=== PATIENT | male | born 1960 | race Caucasian/White ===

== ENCOUNTER 2018-08-09 09:13 | Inpatient (IN) ==
[2018-08-09] MEDS ORDERED: Labetalol HCl Inj 100 MG/20 ML Vial IV.PUSH ONE (09:24)
--- NOTE | 2018-08-09 09:32 | ED ---
HPI General Chief Complaint: Altered Mental Status Stated Complaint: AMS Time Seen by Provider: 08/09/18 09:15 History of Present Illness HPI narrative: Patient 58-year-old male with history of high blood pressure, she sold his house and lived in his friend's house. She is to go to the garage to smoke. He was seen at [facility] last night close to midnight. He was found at 830 in the garage on the floor unresponsive. He was awake alert not oriented, nonverbal. Patient was moving his arms looks around no legs movement noted at this time. No obvious trauma sign noted. Blood pressure initially 226 /139 heart rate is 90. Patient is not a candidate for TPA, he missed treatment window. He was seen before midnight healthy. I called a stroke alert, spoke with his neurologist Dr. De La Cruz. Related Data Home Medications Medication Instructions Recorded Confirmed Unable to Obtain Home Meds 08/09/18 08/09/18 Allergies Allergy/AdvReac Type Severity Reaction Status Date / Time No Known Allergies Allergy Verified 08/09/18 09:20 Review of Systems ROS: all other systems reviewed are negative Neurologic Comments: Patient is awake alert not oriented, looks around, nonverbal. Moves his arms, not following commands. [facility] Medical History Medical History ETOH abuse (Acute) HTN (hypertension) (Acute) Social History Social History Substance History: Unable to Obtain Smoking Status: Cognitive impairment How Often Do You Have a Drink Containing Alcohol: Unable to Obtain Recent Travel in [facility] within the Last 8 Weeks: No Recent Out of Country Travel within the Last 8 Weeks: No Exam Narrative Exam Narrative: GENERAL: 58-year-old male with possible stroke symptoms. SKIN: Focused skin assessment warm/dry. HEAD: Atraumatic. Normocephalic. EYES: Pupils equal and round. No scleral icterus. No injection or drainage. ENT: No nasal bleeding or discharge. Mucous membranes pink and moist. NECK: Trachea midline. No JVD. CARDIOVASCULAR: Regular rate and rhythm. No murmur appreciated. RESPIRATORY: No accessory muscle use. Clear to auscultation. Breath sounds equal bilaterally. GASTROINTESTINAL: Abdomen soft, non-tender, nondistended. Hepatic and splenic margins not palpable. MUSCULOSKELETAL: No obvious deformities. No clubbing. No cyanosis. No edema. NEUROLOGICAL: Patient is awake alert not oriented, looks around, nonverbal. Moves his arms, not following commands. PSYCHIATRIC: Appropriate mood and affect; insight and judgment normal. Course Initial Documented Vital Signs Temperature 98.2 F 08/09/18 09:25 Pulse Rate 102 H 08/09/18 09:25 Respiratory Rate 24 08/09/18 09:25 Blood Pressure 226/139 H 08/09/18 09:25 Pulse Oximetry 99 08/09/18 09:25 Last Documented Vital Signs Temperature 98.2 F 08/09/18 09:25 Pulse Rate 102 H 08/09/18 09:25 Respiratory Rate 24 08/09/18 09:25 Blood Pressure 186/86 H 08/09/18 09:29 Pulse Oximetry 100 08/09/18 10:30 Critical Care Time Critical Care Time: Yes Total Critical Care Time: 50 Attestation: Aggregate critical care time was 50 minutes. Time to perform other separately billable procedures was not included in the critical care time. My time did not include minutes spent treating any other patients simultaneously or on activities that did not directly contribute to the patient's treatment. The services I provided to this patient were to treat and/or prevent clinically significant deterioration that could result in: [-] I provided critical care services requiring my management, as noted below: Chart data review, documentation time, medication orders and management, vital sign assessments/reviewing monitor data, ordering and reviewing lab tests, ordering and interpreting/reviewing x-rays and diagnostic studies, care of the patient and discussion of the patient with the admitting physicians. Patient is in critical condition, altered, admitted to stepdown care unit. Medical Decision Making MDM Narrative Medical decision making narrative: Code stroke called, CAT scan, blood work pending. Case discussed with neurologist. Blood pressure medication ordered. 1000: Systolic blood pressure improved 176, patient condition at the same awake alert not oriented. CT head was negative for acute pathology. 1100: Patient from time to time gets shaky, mental status at the same he looks around. He is positive for alcohol 114, lactic acid elevated. His CAT scan brain results normal. Cannot rule out seizure activity due to alcohol withdrawal. Ativan is given. 1150: Case discussed with Dr. Garcia, patient has a C6 fracture most likely not new and not surgical as per him. Patient has c-collar on. Blood work results still pending. 1210: Case discussed with Dr. Agarwal who agreed with admission. Medical Screen Exam Complete: Yes Emergency Medical Condition: Yes Differential Diagnosis Differential Diagnosis: Ischemic stroke versus hemorrhagic stroke versus drugs overdose versus seizure. Lab Data Result diagrams: 08/09/18 09:25 08/09/18 09:25 Lab Results 08/09/18 08/09/18 08/09/18 Range/Units 08:25 09:25 09:25 WBC 9.6 (4.0-11.0) th/mm3 RBC 4.38 L (4.50-5.90) mil/mm3 Hgb 14.5 (13.0-17.0) gm/dL POC Hgb (Calc) (13.0-17.0) g/dL Hct 41.2 (39.0-51.0) % POC Hct (39-51.0) % MCV 94.0 (80.0-100.0) fL MCH 33.1 (27.0-34.0) pg MCHC 35.2 (32.0-36.0) % RDW 13.6 (11.6-17.2) % Plt Count 193 (150-450) th/mm3 MPV 7.3 (7.0-11.0) fL Neut % (Auto) 90.5 H (16.0-70.0) % Lymph % (Auto) 4.2 L (9.0-44.0) % [place] % (Auto) 4.8 (0.0-8.0) % Eos % (Auto) 0.0 (0.0-4.0) % Baso % (Auto) 0.5 (0.0-2.0) % Neut # (Auto) 8.7 H (1.8-7.7) th/mm3 Lymph # (Auto) 0.4 L (1.0-4.8) th/mm3 [place] # (Auto) 0.5 (0.0-0.9) th/mm3 Eos # (Auto) 0.0 (0.0-0.4) th/mm3 Baso # (Auto) 0.0 (0.0-0.2) th/mm3 WBC Differential . Differential Comment Auto diff final PT 10.3 (9.8-11.6) sec INR 1.0 Ratio APTT 25.0 (23.4-31.7) sec Fibrinogen 345 (227-377) mg/dL POC Sodium (137-144) mmol/L Sodium (136-145) meq/L POC Potassium (3.6-5.0) mmol/L Potassium (3.5-5.1) meq/L POC Chloride (102-111) mmol/L Chloride (98-107) meq/L Carbon Dioxide (21.0-32.0) meq/L Anion Gap (5-15) meq/L POC BUN (5-21) mg/dL BUN (7-18) mg/dL Creatinine (0.60-1.30) mg/dL POC Creatinine (0.6-1.3) mg/dL Estimated GFR (>89) mL/min POC Glucose (68-110) mg/dL Random Glucose (74-106) mg/dL Lactic Acid (0.4-2.0) mmol/L Calcium (8.5-10.1) mg/dL Magnesium (1.5-2.5) mg/dL Total Bilirubin (0.2-1.0) mg/dL AST (15-37) U/L ALT (12-78) U/L Alkaline Phosphatase (45-117) U/L Troponin I (0.02-0.05) ng/mL Total Protein (6.4-8.2) g/dL Albumin (3.4-5.0) g/dL Urine Color (Yellw/Straw) Urine Clarity (Clear) Urine pH (5.0-8.5) Ur Specific [place] (1.002-1.035) Urine Protein (Neg-Trace) mg/dL Urine Glucose (UA) (Negative) mg/dL Urine Ketones (Negative) mg/dL Urine Occult Blood (Negative) Urine Nitrate (Negative) Urine Bilirubin (Negative) Urine Urobilinogen (Less than 2) mg/dL Ur Leukocyte Esterase (Negative) Urine RBC (0-3) /hpf Urine WBC (0-5) /hpf Ur Squamous Epith Cells (0-5) /hpf Urine Bacteria (None) /hpf Hyaline Casts (0-3) /lpf Urine Mucus (Occasional) /lpf Micro UA Comment Ur Microscopic Review Urine Culture Comments Salicylates (2.8-20.0) mg/dL Urine Opiates Screen (Neg) Acetaminophen (10.0-30.0) mcg/mL Ur Barbiturates Screen (Neg) Ur Amphetamines Screen (Neg) U Benzodiazepines Scrn (Neg) Urine Cocaine Screen (Neg) U Cannabinoids Screen (Neg) Serum Alcohol (0-5) mg/dL 08/09/18 08/09/18 08/09/18 Range/Units 09:25 09:25 09:25 WBC (4.0-11.0) th/mm3 RBC (4.50-5.90) mil/mm3 Hgb (13.0-17.0) gm/dL POC Hgb (Calc) 13.9 (13.0-17.0) g/dL Hct (39.0-51.0) % POC Hct 41.0 (39-51.0) % MCV (80.0-100.0) fL MCH (27.0-34.0) pg MCHC (32.0-36.0) % RDW (11.6-17.2) % Plt Count (150-450) th/mm3 MPV (7.0-11.0) fL Neut % (Auto) (16.0-70.0) % Lymph % (Auto) (9.0-44.0) % [place] % (Auto) (0.0-8.0) % Eos % (Auto) (0.0-4.0) % Baso % (Auto) (0.0-2.0) % Neut # (Auto) (1.8-7.7) th/mm3 Lymph # (Auto) (1.0-4.8) th/mm3 [place] # (Auto) (0.0-0.9) th/mm3 Eos # (Auto) (0.0-0.4) th/mm3 Baso # (Auto) (0.0-0.2) th/mm3 WBC Differential Differential Comment PT (9.8-11.6) sec INR Ratio APTT (23.4-31.7) sec Fibrinogen (227-377) mg/dL POC Sodium 142 (137-144) mmol/L Sodium 143 (136-145) meq/L POC Potassium 3.2 L (3.6-5.0) mmol/L Potassium 3.2 L (3.5-5.1) meq/L POC Chloride 104 (102-111) mmol/L Chloride 108 H (98-107) meq/L Carbon Dioxide 22.8 (21.0-32.0) meq/L Anion Gap 12 (5-15) meq/L POC BUN 11 (5-21) mg/dL BUN 12 (7-18) mg/dL Creatinine 0.97 (0.60-1.30) mg/dL POC Creatinine 1.0 (0.6-1.3) mg/dL Estimated GFR 80 L (>89) mL/min POC Glucose 130 H (68-110) mg/dL Random Glucose 124 H (74-106) mg/dL Lactic Acid 3.2 H (0.4-2.0) mmol/L Calcium 8.5 (8.5-10.1) mg/dL Magnesium 1.9 (1.5-2.5) mg/dL Total Bilirubin 0.5 (0.2-1.0) mg/dL AST 101 H (15-37) U/L ALT 59 (12-78) U/L Alkaline Phosphatase 154 H (45-117) U/L Troponin I Less than 0.02 L (0.02-0.05) ng/mL Total Protein 7.5 (6.4-8.2) g/dL Albumin 4.2 (3.4-5.0) g/dL Urine Color (Yellw/Straw) Urine Clarity (Clear) Urine pH (5.0-8.5) Ur Specific [place] (1.002-1.035) Urine Protein (Neg-Trace) mg/dL Urine Glucose (UA) (Negative) mg/dL Urine Ketones (Negative) mg/dL Urine Occult Blood (Negative) Urine Nitrate (Negative) Urine Bilirubin (Negative) Urine Urobilinogen (Less than 2) mg/dL Ur Leukocyte Esterase (Negative) Urine RBC (0-3) /hpf Urine WBC (0-5) /hpf Ur Squamous Epith Cells (0-5) /hpf Urine Bacteria (None) /hpf Hyaline Casts (0-3) /lpf Urine Mucus (Occasional) /lpf Micro UA Comment Ur Microscopic Review Urine Culture Comments Salicylates 3.2 (2.8-20.0) mg/dL Urine Opiates Screen (Neg) Acetaminophen 42.6 H (10.0-30.0) mcg/mL Ur Barbiturates Screen (Neg) Ur Amphetamines Screen (Neg) U Benzodiazepines Scrn (Neg) Urine Cocaine Screen (Neg) U Cannabinoids Screen (Neg) Serum Alcohol 114 H (0-5) mg/dL 08/09/18 08/09/18 08/09/18 Range/Units 09:25 11:00 11:00 WBC (4.0-11.0) th/mm3 RBC (4.50-5.90) mil/mm3 Hgb (13.0-17.0) gm/dL POC Hgb (Calc) (13.0-17.0) g/dL Hct (39.0-51.0) % POC Hct (39-51.0) % MCV (80.0-100.0) fL MCH (27.0-34.0) pg MCHC (32.0-36.0) % RDW (11.6-17.2) % Plt Count (150-450) th/mm3 MPV (7.0-11.0) fL Neut % (Auto) (16.0-70.0) % Lymph % (Auto) (9.0-44.0) % [place] % (Auto) (0.0-8.0) % Eos % (Auto) (0.0-4.0) % Baso % (Auto) (0.0-2.0) % Neut # (Auto) (1.8-7.7) th/mm3 Lymph # (Auto) (1.0-4.8) th/mm3 [place] # (Auto) (0.0-0.9) th/mm3 Eos # (Auto) (0.0-0.4) th/mm3 Baso # (Auto) (0.0-0.2) th/mm3 WBC Differential Differential Comment PT (9.8-11.6) sec INR Ratio APTT (23.4-31.7) sec Fibrinogen (227-377) mg/dL POC Sodium (137-144) mmol/L Sodium (136-145) meq/L POC Potassium (3.6-5.0) mmol/L Potassium (3.5-5.1) meq/L POC Chloride (102-111) mmol/L Chloride (98-107) meq/L Carbon Dioxide (21.0-32.0) meq/L Anion Gap (5-15) meq/L POC BUN (5-21) mg/dL BUN (7-18) mg/dL Creatinine (0.60-1.30) mg/dL POC Creatinine (0.6-1.3) mg/dL Estimated GFR (>89) mL/min POC Glucose (68-110) mg/dL Random Glucose (74-106) mg/dL Lactic Acid (0.4-2.0) mmol/L Calcium (8.5-10.1) mg/dL Magnesium (1.5-2.5) mg/dL Total Bilirubin (0.2-1.0) mg/dL AST (15-37) U/L ALT (12-78) U/L Alkaline Phosphatase (45-117) U/L Troponin I (0.02-0.05) ng/mL Total Protein (6.4-8.2) g/dL Albumin (3.4-5.0) g/dL Urine Color Yellow (Yellw/Straw) Urine Clarity Clear (Clear) Urine pH 5.0 (5.0-8.5) Ur Specific [place] 1.015 (1.002-1.035) Urine Protein 30 H (Neg-Trace) mg/dL Urine Glucose (UA) Negative (Negative) mg/dL Urine Ketones Negative (Negative) mg/dL Urine Occult Blood Negative (Negative) Urine Nitrate Negative (Negative) Urine Bilirubin Negative (Negative) Urine Urobilinogen Less than 2 (Less than 2) mg/dL Ur Leukocyte Esterase Trace H (Negative) Urine RBC Less than 1 (0-3) /hpf Urine WBC 4 (0-5) /hpf Ur Squamous Epith Cells <1 (0-5) /hpf Urine Bacteria Occasional H (None) /hpf Hyaline Casts 15 (0-3) /lpf Urine Mucus Few H (Occasional) /lpf Micro UA Comment Cath-culture ind Ur Microscopic Review Not Reportable Urine Culture Comments Cath-cult indicated Salicylates (2.8-20.0) mg/dL Urine Opiates Screen Neg (Neg) Acetaminophen Cancelled (10.0-30.0) mcg/mL Ur Barbiturates Screen Neg (Neg) Ur Amphetamines Screen Neg (Neg) U Benzodiazepines Scrn Neg (Neg) Urine Cocaine Screen Neg (Neg) U Cannabinoids Screen Neg (Neg) Serum Alcohol (0-5) mg/dL 08/09/18 Range/Units 12:05 WBC (4.0-11.0) th/mm3 RBC (4.50-5.90) mil/mm3 Hgb (13.0-17.0) gm/dL POC Hgb (Calc) (13.0-17.0) g/dL Hct (39.0-51.0) % POC Hct (39-51.0) % MCV (80.0-100.0) fL MCH (27.0-34.0) pg MCHC (32.0-36.0) % RDW (11.6-17.2) % Plt Count (150-450) th/mm3 MPV (7.0-11.0) fL Neut % (Auto) (16.0-70.0) % Lymph % (Auto) (9.0-44.0) % [place] % (Auto) (0.0-8.0) % Eos % (Auto) (0.0-4.0) % Baso % (Auto) (0.0-2.0) % Neut # (Auto) (1.8-7.7) th/mm3 Lymph # (Auto) (1.0-4.8) th/mm3 [place] # (Auto) (0.0-0.9) th/mm3 Eos # (Auto) (0.0-0.4) th/mm3 Baso # (Auto) (0.0-0.2) th/mm3 WBC Differential Differential Comment PT (9.8-11.6) sec INR Ratio APTT (23.4-31.7) sec Fibrinogen (227-377) mg/dL POC Sodium (137-144) mmol/L Sodium (136-145) meq/L POC Potassium (3.6-5.0) mmol/L Potassium (3.5-5.1) meq/L POC Chloride (102-111) mmol/L Chloride (98-107) meq/L Carbon Dioxide (21.0-32.0) meq/L Anion Gap (5-15) meq/L POC BUN (5-21) mg/dL BUN (7-18) mg/dL Creatinine (0.60-1.30) mg/dL POC Creatinine (0.6-1.3) mg/dL Estimated GFR (>89) mL/min POC Glucose (68-110) mg/dL Random Glucose (74-106) mg/dL Lactic Acid 6.7 H* (0.4-2.0) mmol/L Calcium (8.5-10.1) mg/dL Magnesium (1.5-2.5) mg/dL Total Bilirubin (0.2-1.0) mg/dL AST (15-37) U/L ALT (12-78) U/L Alkaline Phosphatase (45-117) U/L Troponin I (0.02-0.05) ng/mL Total Protein (6.4-8.2) g/dL Albumin (3.4-5.0) g/dL Urine Color (Yellw/Straw) Urine Clarity (Clear) Urine pH (5.0-8.5) Ur Specific [place] (1.002-1.035) Urine Protein (Neg-Trace) mg/dL Urine Glucose (UA) (Negative) mg/dL Urine Ketones (Negative) mg/dL Urine Occult Blood (Negative) Urine Nitrate (Negative) Urine Bilirubin (Negative) Urine Urobilinogen (Less than 2) mg/dL Ur Leukocyte Esterase (Negative) Urine RBC (0-3) /hpf Urine WBC (0-5) /hpf Ur Squamous Epith Cells (0-5) /hpf Urine Bacteria (None) /hpf Hyaline Casts (0-3) /lpf Urine Mucus (Occasional) /lpf Micro UA Comment Ur Microscopic Review Urine Culture Comments Salicylates (2.8-20.0) mg/dL Urine Opiates Screen (Neg) Acetaminophen (10.0-30.0) mcg/mL Ur Barbiturates Screen (Neg) Ur Amphetamines Screen (Neg) U Benzodiazepines Scrn (Neg) Urine Cocaine Screen (Neg) U Cannabinoids Screen (Neg) Serum Alcohol (0-5) mg/dL Imaging Data Radiologist's impression: Head CT 08/09/18 09:20 CONCLUSION: 1. No acute intracranial abnormality is seen. 2. Mild widening of the cortical sulci which could suggest some atrophy. Report was called by [Dr. Dutton to at 9:49 AM. ] Chest X-Ray 08/09/18 09:21 CONCLUSION: No acute cardiopulmonary process. Cervical Spine CT 08/09/18 09:23 CONCLUSION: 1. Fracturing through anterior flowing spurs at the anterior C6 level with the fracture extending into the anterior inferior left lateral aspect of the C6 vertebral body. Empty displacement is not seen. No other possible fractures are seen. 2. 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 3. Degenerative change. Head CTA 08/09/18 09:28 CONCLUSION: Negative CTA. Report was called by [Dr. Dutton to Dr. Faustin. A message was left on the voicemail. ] Neck CTA 08/09/18 09:28 CONCLUSION: Negative CTA of the neck. Discharge Plan Discharge Disposition Patient Disposition: ED Admit(ED Internal Use Only) Discharge Condition Condition: Serious Discharge Order Discharge Orders: ED Use Only Admit Order (Routine); Ordered 08/09/18 Ordered By: Scott Oakley Discharge Details Diagnosis: Seizure, Hypertensive urgency, Alcohol intoxication, Altered mental status, Delirium due to general medical condition Physicians Team ED Provider: Scott Oakley Primary Care Provider: UNKNOWN, Attending Provider: Delmar Agarwal Status ED Status: Admitted Patient
[2018-08-09 09:45] LABS: Baso % (Auto) 0.5 % (0.0-2.0); Hematocrit 41.2 % (39.0-51.0); Hemoglobin 14.5 gm/dL (13.0-17.0); Lymph # (Auto) 0.4 th/mm3 (1.0-4.8); Lymph % (Auto) 4.2 % (9.0-44.0); Mean Corpuscular HGB Conc 35.2 % (32.0-36.0); Mean Corpuscular Hemoglobin 33.1 pg (27.0-34.0); Mean Platelet Volume 7.3 fL (7.0-11.0); Mono # (Auto) 0.5 th/mm3 (0.0-0.9); Mono % (Auto) 4.8 % (0.0-8.0); Neut # (Auto) 8.7 th/mm3 (1.8-7.7); Neut % (Auto) 90.5 % (16.0-70.0); Platelet Count 193 th/mm3 (150-450); Red Blood Count 4.38 mil/mm3 (4.50-5.90); Red Cell Distribution Width 13.6 % (11.6-17.2); White Blood Count 9.6 th/mm3 (4.0-11.0)
--- NOTE | 2018-08-09 09:53 | CT ---
EXAM DATE: 08/09/2018 9:47 AM EST AGE/SEX: 58 years / Male INDICATIONS: Stroke alert, altered mental status. CLINICAL DATA: This is the patient's initial encounter. Patient reports that signs and symptoms have been present for 1 day and indicates a pain score of Nonresponsive. MEDICAL/SURGICAL HISTORY: Non-responsive. Non-responsive. RADIATION DOSE: 42.56 CTDI (mGy) COMPARISON: No prior exams available for comparison. TECHNIQUE: CT of the head without contrast. Using automated exposure control and adjustment of the mA and/or kV according to patient size, radiation dose was kept as low as reasonably achievable to ob tain optimal diagnostic quality images. DICOM format image data is available electronically for revi ew and comparison. FINDINGS: Cerebrum: The ventricles are normal for age. The cortical sulci are mildly widened for the patient' s age. No evidence of midline shift, mass lesion, hemorrhage or acute infarction. No extraaxial flui d collections are seen. Posterior Fossa: The cerebellum and brainstem are intact. The 4th ventricle is midline. The cerebe llopontine angle is unremarkable. Extracranial: The visualized portion of the orbits is intact. Skull: The calvaria is intact. No evidence of skull fracture. CONCLUSION: 1. No acute intracranial abnormality is seen. 2. Mild widening of the cortical sulci which could suggest some atrophy. Report was called by [Dr. Dutton to at 9:49 AM. ] Electronically signed by: Azam Dutton MD Board Certified Radiologist 08/09/2018 9:51 AM EST
[2018-08-09 09:58] LABS: Prothrombin Time 10.3 sec (9.8-11.6)
[2018-08-09 10:17] LABS: Albumin 4.2 g/dL (3.4-5.0); Anion Gap 12 meq/L (5-15); Aspartate Aminotransferase 101 U/L (15-37); Blood Urea Nitrogen 12 mg/dL (7-18); Calcium 8.5 mg/dL (8.5-10.1); Carbon Dioxide 22.8 meq/L (21.0-32.0); Chloride 108 meq/L (98-107); Glomerular Filtration Rate 80 mL/min (>89); Glucose,Random 124 mg/dL (74-106); Magnesium 1.9 mg/dL (1.5-2.5); Potassium 3.2 meq/L (3.5-5.1); Sodium 143 meq/L (136-145)
[2018-08-09 10:20] LABS: Acetaminophen 42.6 mcg/mL (10.0-30.0); Alanine Aminotransferase 59 U/L (12-78); Alkaline Phosphatase 154 U/L (45-117); Total Protein 7.5 g/dL (6.4-8.2)
--- NOTE | 2018-08-09 10:24 | CT ---
EXAM DATE: 08/09/2018 10:00 AM EST AGE/SEX: 58 years / Male INDICATIONS: Stroke alert, altered mental status. CLINICAL DATA: This is the patient's initial encounter. Patient reports that signs and symptoms have been present for 1 day and indicates a pain score of Nonresponsive. MEDICAL/SURGICAL HISTORY: Non-responsive. Non-responsive. RADIATION DOSE: 28.88 CTDI (mGy) ; Combined studies COMPARISON: No prior exams available for comparison. TECHNIQUE: Volumetric scanning was performed using a multi-row detector CT scanner during bolus infu diego of 100 ml Visipaque 320 (iodixanol) nonionic water-soluble contrast as a cumulative dose for mu ltiple exams. The data was post processed with a variety of visualization algorithms including full volume maximum intensity projection, multi-planar sliding thin slab reformation, curved planar refor mation, and surface rendering techniques. Using automated exposure control and adjustment of the mA and/or kV according to patient size, radiation dose was kept as low as reasonably achievable to obtai n optimal diagnostic quality images. DICOM format image data is available electronically for review and comparison. FINDINGS: There is excellent visualization of the major intracranial arteries out to the second-order branch ve ssels. There is no evidence for aneurysm, vessel truncation or stenosis, and no evidence for vascula r malformation. CONCLUSION: Negative CTA. Report was called by [Dr. Dutton to Dr. Faustin. A message was left on the voicemail. ] Electronically signed by: Azam Dutton MD Board Certified Radiologist 08/09/2018 10:23 AM EST
--- NOTE | 2018-08-09 10:26 | CT ---
EXAM DATE: 08/09/2018 10:15 AM EST AGE/SEX: 58 years / Male INDICATIONS: Stroke alert, altered mental status. CLINICAL DATA: This is the patient's initial encounter. Patient reports that signs and symptoms have been present for 1 day and indicates a pain score of Nonresponsive. MEDICAL/SURGICAL HISTORY: Non-responsive. Non-responsive. RADIATION DOSE: 28.88 CTDI (mGy) ; Combined studies COMPARISON: No prior exams available for comparison. TECHNIQUE: Volumetric scanning was performed using a multirow detector CT scanner during bolus infus ion of 100 ml Visipaque 320 (iodixanol) nonionic water-soluble contrast as a cumulative dose for mul tiple exams. The data was postprocessed with a variety of visualization algorithms including full-v olume maximum intensity projection, multiplanar sliding thin-slab reformation, curved-planar reformat ion, and surface-rendering techniques. Using automated exposure control and adjustment of the mA and /or kV according to patient size, radiation dose was kept as low as reasonably achievable to obtain o ptimal diagnostic quality images. DICOM format image data is available electronically for review and comparison. FINDINGS: Aortic Arch: There is a three-vessel origin of the great vessels from the aorta. No evidence of ost ial narrowing Right Carotid: The common carotid artery is intact. The carotid bulb has a normal configuration wit hout ulceration or narrowing. The internal carotid artery lumen is smooth without stenosis. The ext ernal carotid artery is intact. Left Carotid: The common carotid artery is intact. The carotid bulb has a normal configuration with out ulceration or narrowing. The internal carotid artery lumen is smooth without stenosis. The exte rnal carotid artery is intact. Vertebrals: The vertebral arteries have a symmetric diameter. No stenotic lesions are seen. Percent stenosis is calculated using the diameter of the stenotic region over the diameter of the nor mal distal internal carotid artery. CONCLUSION: Negative CTA of the neck. Electronically signed by: Azam Dutton MD Board Certified Radiologist 08/09/2018 10:25 AM EST
--- NOTE | 2018-08-09 10:31 | XR ---
EXAM DATE: 08/09/2018 10:17 AM EST AGE/SEX: 58 years / Male INDICATIONS: Stroke alert. CLINICAL DATA: This is the patient's initial encounter. Patient reports that signs and symptoms have been present for 1 day and indicates a pain score of Nonresponsive. MEDICAL/SURGICAL HISTORY: Non-responsive. Non-responsive. COMPARISON: No prior exams available for comparison. FINDINGS: The heart size is normal. The lungs appear grossly clear. No effusion is seen. CONCLUSION: No acute cardiopulmonary process. Electronically signed by: Azam Dutton MD Board Certified Radiologist 08/09/2018 10:30 AM EST
[2018-08-09 10:44] LABS: Alcohol 114 mg/dL (0-5)
--- NOTE | 2018-08-09 10:54 | P.CONNEU ---
History of Present Illness Service: Neurology Primary Care Provider: UNKNOWN Chief Complaint: Stroke alert History of Present Illness: 58-year-old male tobacco user admitted for stroke evaluation. Last seen normal greater than 6 hours prior to ER arrival. Not IV TPA candidate. It is CT brain scan performed did not show any acute lesion. CTA brain carotids negative for any vaso-occlusive disease. Blood pressure 226/139. Elevated ethanol level. Patient poor historian due to mental status. Review of Systems All other systems reviewed negative except as stated in HPI PMFSH - History History Provided By: Friend, Custodial Services Manager / EMT - Medical History Medical History: Medical History (Last Updated 08/09/18 @ 10:04 by Sakshi Roberson) ETOH abuse HTN (hypertension) - Tobacco History Smoking Status: Cognitive impairment - Alcohol History How Often Do You Have a Drink Containing Alcohol: Unable to Obtain - Substance Use History Substance History: Unable to Obtain - Travel History Recent Travel in the [facility] Within the Last 8 Weeks: No Recent Travel Out of the Country Within the Last 8 Weeks: No - Immunization History Tetanus Immunization: Unable to Assess Medications and Allergies Active Medications: Active Medications Nicardipine HCl 25 mg/ Sodium (Chloride) 250 mls @ 50 mls/hr IV.CONT TITRATE PRN; Protocol PRN Reason: Per Protocol Potassium Chloride 10 meq/ (Sodium Chloride) 1,005 mls @ 42 mls/hr IV.CONT .[id number] SATYA Sodium Chloride (Ns Flush) 2 ml IV.FLUSH PRN PRN PRN Reason: FLUSH AFTER USING IV ACCESS Allergies Allergy/AdvReac Type Severity Reaction Status Date / Time No Known Allergies Allergy Verified 08/09/18 09:20 Home Medications Medication Instructions Recorded Confirmed Type Unable to Obtain Home Meds 08/09/18 08/09/18 History Exam Vital signs: Vital Signs 08/09/18 09:25 08/09/18 09:29 08/09/18 10:30 Temperature 98.2 F Pulse Rate 102 H Respiratory Rate 24 Blood Pressure 226/139 H 186/86 H Pulse Oximetry 99 100 Intake & Output 08/08/18 08/09/18 08/09/18 18:59 06:59 18:59 Weight 90.718 kg Narrative: NEUROLOGICAL: Awake not following, but I came in to see him he was having generalized clonic activity mild right gaze deviation tachycardic not following last a couple minutes appear to be moving all his extremities at that time PSYCHIATRIC: Confused - Constitutional no acute distress - Routine HEENT Exam Head: Present: normocephalic Results - Labs CBC & Chem 7: 08/09/18 09:25 08/09/18 09:25 Labs: Laboratory Results - last 24 hr 08/09/18 08/09/18 08/09/18 08:25 09:25 09:25 WBC 9.6 RBC 4.38 L Hgb 14.5 POC Hgb (Calc) Hct 41.2 POC Hct MCV 94.0 MCH 33.1 MCHC 35.2 RDW 13.6 Plt Count 193 MPV 7.3 Neut % (Auto) 90.5 H Lymph % (Auto) 4.2 L [place] % (Auto) 4.8 Eos % (Auto) 0.0 Baso % (Auto) 0.5 Neut # (Auto) 8.7 H Lymph # (Auto) 0.4 L [place] # (Auto) 0.5 Eos # (Auto) 0.0 Baso # (Auto) 0.0 WBC Differential . Differential Comment Auto diff final PT 10.3 INR 1.0 APTT 25.0 Fibrinogen 345 POC Sodium Sodium POC Potassium Potassium POC Chloride Chloride Carbon Dioxide Anion Gap POC BUN BUN Creatinine POC Creatinine Estimated GFR POC Glucose Random Glucose Lactic Acid Calcium Magnesium Total Bilirubin AST ALT Alkaline Phosphatase Troponin I Total Protein Albumin Salicylates Acetaminophen Serum Alcohol 08/09/18 08/09/18 08/09/18 09:25 09:25 09:25 WBC RBC Hgb POC Hgb (Calc) 13.9 Hct POC Hct 41.0 MCV MCH MCHC RDW Plt Count MPV Neut % (Auto) Lymph % (Auto) [place] % (Auto) Eos % (Auto) Baso % (Auto) Neut # (Auto) Lymph # (Auto) [place] # (Auto) Eos # (Auto) Baso # (Auto) WBC Differential Differential Comment PT INR APTT Fibrinogen POC Sodium 142 Sodium 143 POC Potassium 3.2 L Potassium 3.2 L POC Chloride 104 Chloride 108 H Carbon Dioxide 22.8 Anion Gap 12 POC BUN 11 BUN 12 Creatinine 0.97 POC Creatinine 1.0 Estimated GFR 80 L POC Glucose 130 H Random Glucose 124 H Lactic Acid 3.2 H Calcium 8.5 Magnesium 1.9 Total Bilirubin 0.5 AST 101 H ALT 59 Alkaline Phosphatase 154 H Troponin I Less than 0.02 L Total Protein 7.5 Albumin 4.2 Salicylates 3.2 Acetaminophen 42.6 H Serum Alcohol 114 H 08/09/18 09:25 WBC RBC Hgb POC Hgb (Calc) Hct POC Hct MCV MCH MCHC RDW Plt Count MPV Neut % (Auto) Lymph % (Auto) [place] % (Auto) Eos % (Auto) Baso % (Auto) Neut # (Auto) Lymph # (Auto) [place] # (Auto) Eos # (Auto) Baso # (Auto) WBC Differential Differential Comment PT INR APTT Fibrinogen POC Sodium Sodium POC Potassium Potassium POC Chloride Chloride Carbon Dioxide Anion Gap POC BUN BUN Creatinine POC Creatinine Estimated GFR POC Glucose Random Glucose Lactic Acid Calcium Magnesium Total Bilirubin AST ALT Alkaline Phosphatase Troponin I Total Protein Albumin Salicylates Acetaminophen Cancelled Serum Alcohol - Imaging Impressions Head CT 08/09/18 09:20 CONCLUSION: 1. No acute intracranial abnormality is seen. 2. Mild widening of the cortical sulci which could suggest some atrophy. Report was called by [Dr. Dutton to at 9:49 AM. ] Chest X-Ray 08/09/18 09:21 CONCLUSION: No acute cardiopulmonary process. Head CTA 08/09/18 09:28 CONCLUSION: Negative CTA. Report was called by [Dr. Dutton to Dr. Faustin. A message was left on the voicemail. ] Neck CTA 08/09/18 09:28 CONCLUSION: Negative CTA of the neck. Review/Management - Diagnosis (1) Seizure Code(s): R56.9 - Unspecified convulsions Status: Acute Current Visit: Yes (2) Hypertensive urgency Code(s): I16.0 - Hypertensive urgency Status: Acute Current Visit: Yes (3) Alcohol intoxication Code(s): F10.929 - Alcohol use, unspecified with intoxication, unspecified Status: Acute Current Visit: Yes - Review/Management Plan: Severely hypertensive individual with reduced responsiveness and appeared to have seizure activity with elevated ethanol level He may have had a stroke followed by post stroke seizures or seizure activity may be related to illicit drug? Recommendation IV Vimpat and IV Cerebyx Blood pressure control; less than 200/100 until MRI brain scan completed and if negative for stroke can bring him down to normotensive range EEG MRI brain SCDs Seizure fall precautions Watch for ethanol withdrawal No driving, operating any heavy machinery or dangerous machinery, swimming alone for at least 6 months of being seizure, spell free.
[2018-08-09] MEDS ORDERED: Potassium Chloride Inj 10 MEQ in Sodium Chloride 0.45 % Inj 1,000 ML IV.CONT SCH (11:00)
[2018-08-09] MEDS ORDERED: levETIRAcetam 1000mg/100mL Inj 100 ML IV.SIG ONE (11:21)
--- NOTE | 2018-08-09 11:22 | CT ---
EXAM DATE: 08/09/2018 10:59 AM EST AGE/SEX: 58 years / Male INDICATIONS: Possible fall. Altered mental status. CLINICAL DATA: This is the patient's subsequent encounter. Patient reports that signs and symptoms h ave been present for 1 day and indicates a pain score of Nonresponsive. MEDICAL/SURGICAL HISTORY: Non-responsive. Non-responsive. RADIATION DOSE: . CTDI (mGy) ; Reconstructed from previous dataset, no dose COMPARISON: [facility], CTA NECK W CONTRAST W 3D, 08/09/2018. . TECHNIQUE: Contiguous axial images were obtained using helical multi-row detector technique. Data s ets were acquired after intravenous administration of 100 ml Visipaque 320 (iodixanol) nonionic wate r-soluble contrast as a cumulative dose for multiple exams.. The volumetric data was post-processed with multiplanar reconstruction in oblique axial, sagittal and coronal planes. Using automated exposu re control and adjustment of the mA and/or kV according to patient size, radiation dose was kept as l ow as reasonably achievable to obtain optimal diagnostic quality images. DICOM format image data is available electronically for review and comparison. FINDINGS: Vertebrae: There are prominent flowing anterior spurs extending from C4 into the thoracic spine. The re is fracturing through this flowing spurs at the C6 level. This fracture extends into the anterior inferior aspect of the C6 vertebral body on the left side. No other possible fracture is seen. The fr acture is best seen on the reconstructed sagittal and coronal images. Alignment: Normal. No subluxation. Post Contrast: No abnormal areas of enhancement are seen in the cord, dural or paraspinal regions. C2-3: The bony spinal canal is normal in size. No evidence of disc bulge or herniation. The neural foramina are bilaterally patent. There is mild facet hypertrophy. C3-4: The bony spinal canal is normal in size. No evidence of disc bulge or herniation. There is m ild facet hypertrophy. There is narrowing of the neural foramina. C4-5: The bony spinal canal is normal in size. No evidence of disc bulge or herniation. The neural foramina are bilaterally patent. There is mild facet hypertrophy. C5-6: There is minimal loss of height at the disc. There is minimal bulging and osteophytic ridging causing a mild impression on thecal sac. There is uncovertebral hypertrophy. There is no some narrowi ng of the neural foramina bilaterally. There is mild facet hypertrophy. C6-7: The bony spinal canal is normal in size. No evidence of disc bulge or herniation. The neural foramina are bilaterally patent. There is uncovertebral hypertrophy on the left. There is mild facet hypertrophy. C7-T1: The bony spinal canal is normal in size. No evidence of disc bulge or herniation. The neura l foramina are bilaterally patent. There is facet hypertrophy. There is some bony density seen sales and service associate ior to the C7 spinous process. This appears well corticated suggesting likely represent hypertrophic change as opposed to a fracture. CONCLUSION: 1. Fracturing through anterior flowing spurs at the anterior C6 level with the fracture extending in to the anterior inferior left lateral aspect of the C6 vertebral body. Empty displacement is not seen . No other possible fractures are seen. 2. 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 3. Degenerative change. Electronically signed by: Azam Dutton MD Board Certified Radiologist 08/09/2018 11:21 AM EST
[2018-08-09] MEDS ORDERED: Dexamethasone Inj 20 MG/5 ML Vial IV.PUSH ONE (11:25)
[2018-08-09 11:50] LABS: Bacteria,Urine Occasional /hpf; Bilirubin,Urine Negative (Negative); Clarity,Urine Clear (Clear); Color,Urine Yellow (Yellw/Straw); Glucose,Urine (UA) Negative (Negative); Hyaline Casts,Urine 15 /lpf (0-3); Leukocyte Esterase,Urine Trace (Negative); Mucus,Urine Few /lpf (Occasional); Nitrite,Urine Negative (Negative); Specific Gravity,Urine 1.015 (1.002-1.035); Squamous Epithelial Cell,Urine <1 /hpf (0-5)
[2018-08-09 11:56] LABS: Amphetamine Screen,Urine Neg (Neg); Barbiturate Screen,Urine Neg (Neg); Cannabinoid Screen,Urine Neg (Neg); Cocaine Screen,Urine Neg (Neg)
[2018-08-09 11:58] LABS: Opiate Screen,Urine Neg (Neg)
[2018-08-09] MEDS ORDERED: Fosphenytoin Inj 1,000 MGPE in Sodium Chlor 0.9% Inj 50 ML IV.SIG ONE (12:30)
--- NOTE | 2018-08-09 12:58 | P.CONNS ---
History of Present Illness Service: ED Primary Care Provider: UNKNOWN Chief Complaint: Stroke alert History of Present Illness: 58yoM found in his garage this morning. History of EToH. Recently sold his house and was staying at a friend's house. By history from sister, was living with his mother but had to ship mother up north because he lifestyle was causing stresses. Apparently he was due to fly later today. Imaging showed a C6 possible fracture anteriorly in the setting of DISH, but what is more concerning is his behavior. He is looking around, but every time he is touched or startled, he shakes all of his extremities symmetrically for a few seconds. He looks around and his pupils are reactive. He is breathing and maintaining his airway. He appears to possibly comprehend the examiner or be able to follow commands but does not. [facility] - History History Provided By: Friend, Upholstery Covers Inspector / EMT - Medical History Medical History: Medical History (Last Updated 08/09/18 @ 10:04 by Sakshi Roberson) ETOH abuse HTN (hypertension) - Tobacco History Smoking Status: Cognitive impairment - Alcohol History How Often Do You Have a Drink Containing Alcohol: Unable to Obtain - Substance Use History Substance History: Unable to Obtain - Travel History Recent Travel in the [place] Within the Last 8 Weeks: No Recent Travel Out of the Country Within the Last 8 Weeks: No - Immunization History Tetanus Immunization: Unable to Assess Medications and Allergies Active Medications: Active Medications Nicardipine HCl 25 mg/ Sodium (Chloride) 250 mls @ 50 mls/hr IV.CONT TITRATE PRN; Protocol PRN Reason: Per Protocol Potassium Chloride 10 meq/ (Sodium Chloride) 1,005 mls @ 42 mls/hr IV.CONT .[id number] SATYA Last Admin: 08/09/18 11:44 Dose: 42 mls/hr Lacosamide 100 mg/ Sodium (Chloride) 110 mls @ 110 mls/hr IV.SIG Q12HR SATYA Fosphenytoin Sodium 200 mgpe/ (Sodium Chloride) 54 mls @ 216 mls/hr IV.SIG Q12HR SATYA Sodium Chloride (Ns Flush) 2 ml IV.FLUSH PRN PRN PRN Reason: FLUSH AFTER USING IV ACCESS Allergies Allergy/AdvReac Type Severity Reaction Status Date / Time No Known Allergies Allergy Verified 08/09/18 09:20 Home Medications Medication Instructions Recorded Confirmed Type Unable to Obtain Home Meds 08/09/18 08/09/18 History Exam Vital signs: Vital Signs 08/09/18 09:25 08/09/18 09:29 08/09/18 10:30 Temperature 98.2 F Pulse Rate 102 H Respiratory Rate 24 Blood Pressure 226/139 H 186/86 H Pulse Oximetry 99 100 Intake & Output 08/08/18 08/09/18 08/09/18 18:59 06:59 18:59 Weight 90.718 kg Narrative: Agitated, moving all 4 extremities perrl not following commands intermittent shaking episodes consistent with some kind of metabolic or anoxic picture Results - Laboratory Findings CBC and BMP: 08/09/18 09:25 08/09/18 09:25 Abnormal lab findings: Abnormal Labs 08/09/18 08/09/18 08/09/18 09:25 09:25 09:25 RBC 4.38 L Neut % (Auto) 90.5 H Lymph % (Auto) 4.2 L Neut # (Auto) 8.7 H Lymph # (Auto) 0.4 L POC Potassium 3.2 L Potassium 3.2 L Chloride 108 H Estimated GFR 80 L POC Glucose 130 H Random Glucose 124 H Lactic Acid 3.2 H AST 101 H Alkaline Phosphatase 154 H Troponin I Less than 0.02 L Urine Protein Ur Leukocyte Esterase Urine Bacteria Urine Mucus Acetaminophen 42.6 H Serum Alcohol 114 H 08/09/18 11:00 RBC Neut % (Auto) Lymph % (Auto) Neut # (Auto) Lymph # (Auto) POC Potassium Potassium Chloride Estimated GFR POC Glucose Random Glucose Lactic Acid AST Alkaline Phosphatase Troponin I Urine Protein 30 H Ur Leukocyte Esterase Trace H Urine Bacteria Occasional H Urine Mucus Few H Acetaminophen Serum Alcohol - Diagnostic Findings Additional findings: ct head negative ct c-spine: [facility] with C6 anterior break in the osteophytes Assessment and Plan - Plan 58yoM with encephlopathy, C6 anterior fracture, stable. Plan: Baxter J collar for the fracture x 6 weeks. Re: the encephalopathy, it is unclear to me the etiology-- defer to Neurology-- ?anoxic vs. carbon monoxide poisoning (found in garage) vs. substance use ( but utox negative)-- EtoH positive agree with admission to [facility] and further workup -- there is no traumatic hemorrhage agree with EEG and MRI Brain when able
[2018-08-09] MEDS ORDERED: Dextrose 50% in Water 50 ML Vial IV.PUSH PRN (13:03)
[2018-08-09] MEDS ORDERED: Labetalol HCl Inj 100 MG/20 ML Vial IV.PUSH PRN (13:03)
[2018-08-09] MEDS ORDERED: Sod Chloride 0.9% Inj 1,000 ML IV.CONT SCH (13:15)
[2018-08-09 13:19] LABS: ABG Base Excess -1.6 mmol/L (-2-2); ABG PCO2 30 mmHg (38-42); ABG PO2 68 mmHg (61-120)
[2018-08-09] MEDS: Lacosamide Inj 100 MG in Sodium Chlor 0.9% Inj 100 ML IV.SIG SCH ×2 (13:26→20:51)
[2018-08-09 14:02] LABS: Cholesterol 230 mg/dL (120-200); Phenytoin (Dilantin) 1.1 mcg/mL (10.0-20.0); Triglycerides 67 mg/dL (42-150)
[2018-08-09 14:27] LABS: Chol/HDL Ratio 1.72 Ratio; HDL Cholesterol 133.4 mg/dL (40.0-60.0); LDL Cholesterol,Calculated 83 mg/dL (0-99); Vitamin B12 217 pg/mL (193-986)
[2018-08-09 14:39] LABS: Hemoglobin A1c 5.6 % (4.3-6.0)
[2018-08-09] MEDS: Aspirin 300 MG Supp RECTAL SCH (15:11)
--- NOTE | 2018-08-09 15:14 | P.HPCC ---
History of Present Illness Service: Critical care medicine Primary Care Physician: UNKNOWN Chief Complaint: Stroke alert History of Present Illness: 58-year-old male who was found down in his friend's garage this morning. He has a history of alcohol abuse. He recently sold his house and was staying at a friend's home. Reportedly he was due to fly later today. Patient was brought to the ER by EMS and was noted to have involuntary movements with jerking movements involving upper and lower extremities as well as his head. He received Ativan 3 mg IV and was loaded with Keppra. Initially stroke alert was called. Head CT was negative for any bleed however there was question of C6 fracture. Neurology and neurosurgery were consulted. Patient was loaded with IV Cerebyx and Vimpat by neurology. He had a [place] J collar placed after placing hard cervical collar by neurosurgery. When I evaluated the patient in the ER he was still having involuntary movements which appeared to be episodic with occasional twitchings on his face and nystagmus. This did not appear to be generalized tonic-clonic convulsions however appeared more like an extrapyramidal reaction. I ordered a stat EEG. Patient moving around too much to obtain MRI at this time. His urine tox screen was negative. He was positive for alcohol. Patient nonverbal. His involuntary movements get exaggerated on stimulation. He was reportedly completely normal yesterday. Inpatient Certification: I certify that the inpatient services were ordered in accordance with Medicare regulations governing the order. This includes certification that hospital inpatient services are reasonable and necessary and in the case of services not specified as inpatient-only under 42 CFR 419.22(n), that they are appropriately provided as inpatient services in accordance to with the 2-midnight benchmark under 43 CFR 412.3(e) Estimated Total Length of Stay (Days): 5 Plans for Post Hospital Care: Not yet determined Review of Systems unobtainable due to mental status PMFSH - History History Provided By: Friend, [employer] Counter Assistant / EMT - Medical / Surgical Hx Neg / Unobtainable Medical Problems Denied: Unable to Obtain Surgical History: Unable to Obtain - Medical History Medical History: Medical History (Last Updated 08/09/18 @ 10:04 by Sakshi Roberson) ETOH abuse HTN (hypertension) - Tobacco History Smoking Status: Cognitive impairment - Alcohol History How Often Do You Have a Drink Containing Alcohol: Unable to Obtain - Substance Use History Substance History: Unable to Obtain - Travel History Recent Travel in the [place] Within the Last 8 Weeks: No Recent Travel Out of the Country Within the Last 8 Weeks: No - Immunization History Tetanus Immunization: Unable to Assess Medications and Allergies Active Medications: Active Medications Aspirin (Aspirin Supp) 300 mg RECTAL DAILY SATYA Dextrose (D50w Vial) 50 ml IV.PUSH UNSCH PRN PRN Reason: PER HYPOGLYCEMIA PROTOCOL Glucagon (Glucagon Inj) 1 mg OTHER UNSCH PRN PRN Reason: for Hypoglycemia Protocol Nicardipine HCl 25 mg/ Sodium (Chloride) 250 mls @ 50 mls/hr IV.CONT TITRATE PRN; Protocol PRN Reason: Per Protocol Potassium Chloride 10 meq/ (Sodium Chloride) 1,005 mls @ 42 mls/hr IV.CONT .[id number] SATYA Last Admin: 08/09/18 11:44 Dose: 42 mls/hr Lacosamide 100 mg/ Sodium (Chloride) 110 mls @ 110 mls/hr IV.SIG Q12HR SATYA Last Admin: 08/09/18 13:26 Dose: 110 mls/hr Fosphenytoin Sodium 200 mgpe/ (Sodium Chloride) 54 mls @ 216 mls/hr IV.SIG Q12HR SATYA Sodium Chloride (Ns Inj) 1,000 mls @ 70 mls/hr IV.CONT .[id number] SATYA Insulin Aspart (Novolog Insulin Correctional Sugar Inj) 0 unit SQ Q6HR SATYA; Protocol Labetalol HCl (Trandate Inj) 10 mg IV.PUSH Q2H PRN PRN Reason: For SBP > 220 or DBP > 120 Sodium Chloride (Ns Flush) 2 ml IV.FLUSH BID SATYA Sodium Chloride (Ns Flush) 2 ml IV.FLUSH PRN PRN PRN Reason: FLUSH AFTER USING IV ACCESS Allergies Allergy/AdvReac Type Severity Reaction Status Date / Time No Known Allergies Allergy Verified 08/09/18 09:20 Home Medications Medication Instructions Recorded Confirmed Type Unable to Obtain Home Meds 08/09/18 08/09/18 History Results - Labs CBC & Chem 7: 08/09/18 09:25 08/09/18 09:25 Labs: Short CBC 08/09/18 Range/Units 09:25 WBC 9.6 (4.0-11.0) th/mm3 Hgb 14.5 (13.0-17.0) gm/dL Hct 41.2 (39.0-51.0) % Plt Count 193 (150-450) th/mm3 BMP 08/09/18 09:25 Sodium 143 Potassium 3.2 L Chloride 108 H Carbon Dioxide 22.8 BUN 12 Creatinine 0.97 Calcium 8.5 Cardiac Enzymes 08/09/18 Range/Units 09:25 Troponin I Less than 0.02 L (0.02-0.05) ng/mL Liver Function 08/09/18 Range/Units 09:25 Total Bilirubin 0.5 (0.2-1.0) mg/dL AST 101 H (15-37) U/L ALT 59 (12-78) U/L Alkaline Phosphatase 154 H (45-117) U/L Albumin 4.2 (3.4-5.0) g/dL Urine 08/09/18 Range/Units 11:00 Urine Color Yellow (Yellw/Straw) Urine Clarity Clear (Clear) Urine pH 5.0 (5.0-8.5) Ur Specific [place] 1.015 (1.002-1.035) Urine Protein 30 H (Neg-Trace) mg/dL Urine Glucose (UA) Negative (Negative) mg/dL - Imaging Impressions Head CT 08/09/18 09:20 CONCLUSION: 1. No acute intracranial abnormality is seen. 2. Mild widening of the cortical sulci which could suggest some atrophy. Report was called by [Dr. Dutton to at 9:49 AM. ] Chest X-Ray 08/09/18 09:21 CONCLUSION: No acute cardiopulmonary process. Cervical Spine CT 08/09/18 09:23 CONCLUSION: 1. Fracturing through anterior flowing spurs at the anterior C6 level with the fracture extending into the anterior inferior left lateral aspect of the C6 vertebral body. Empty displacement is not seen. No other possible fractures are seen. 2. 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 3. Degenerative change. Head CTA 08/09/18 09:28 CONCLUSION: Negative CTA. Report was called by [Dr. Dutton to Dr. Faustin. A message was left on the voicemail. ] Neck CTA 08/09/18 09:28 CONCLUSION: Negative CTA of the neck. Exam Vital signs: Vital Signs 08/09/18 09:25 08/09/18 09:29 12/22/18 10:30 Temperature 98.2 F Pulse Rate 102 H Respiratory Rate 24 Blood Pressure 226/139 H 186/86 H Pulse Oximetry 99 100 08/09/18 12:29 Temperature Pulse Rate 74 Respiratory Rate Blood Pressure 145/86 H Pulse Oximetry Intake & Output 08/08/18 08/09/18 08/09/18 18:59 06:59 18:59 Weight 90.718 kg Narrative: HEENT/Neuro: No pallor or icterus, tongue moist, ELODIA, Awake alert, nonverbal, moving all 4 extremities spontaneously with involuntary movements episodically in both upper and lower extremities as well as twitchings or face and nystagmus , both vertical and horizontal. Neck: No JVD Chest/pulmonary: CTA bilaterally Cardiovascular: S1-S2 regular no gallop or murmur GI/abdomen: Soft, nontender, bowel sounds present Extremities: Warm bilaterally, no edema Caprini VTE Risk Assessment Caprini VTE Risk Assessment: Moderate/High Risk (score >= 2) VTE Pharmacological Exception Reason: Hemorrhage Caprini Risk Assessment Model: Point Value = 1 Point Value = 2 Point Value = 3 Point Value = 5 Age 41-60 Minor surgery BMI > 25 kg/m2 Swollen legs Varicose veins or History of unexplained or recurrent spontaneous Oral contraceptives or hormone replacement Sepsis (< 1 month) Serious lung disease, including pneumonia (< 1 month) Abnormal pulmonary function Acute myocardial infarction Congestive heart failure (< 1 month) History of inflammatory bowel disease Medical patient at bed rest Age 61-74 Arthroscopic surgery Major open surgery (> 45 min) Laparoscopic surgery (> 45 min) Malignancy Confined to bed (> 72 hours) Immobilizing plaster cast Central venous access Age >= 75 History of VTE Family history of VTE Factor V Leiden Prothrombin [id number] Lupus anticoagulant Anticardiolipin antibodies Elevated serum homocysteine Heparin-induced thrombocytopenia Other congenital or acquired thrombophilia Stroke (< 1 month) Elective arthroplasty Hip, pelvis, or leg fracture Acute spinal cord injury (< 1 month) Prophylaxis Regimen: Total Risk Factor Score Risk Level Prophylaxis Regimen 0-1 Low Early ambulation 2 Moderate Order ONE of the following: *Sequential Compression Device (SCD) *Heparin 5000 units SQ BID 3-4 Higher Order ONE of the following medications: *Heparin 5000 units SQ TID *Enoxaparin/Lovenox 40 mg SQ daily (WT < 150 kg, CrCl > 30 mL/min) *Enoxaparin/Lovenox 30 mg SQ daily (WT < 150 kg, CrCl > 10-29 mL/min) *Enoxaparin/Lovenox 30 mg SQ BID (WT < 150 kg, CrCl > 30 mL/min) AND/OR *Sequential Compression Device (SCD) 5 or more Highest Order ONE of the following medications: *Heparin 5000 units SQ TID (Preferred with Epidurals) *Enoxaparin/Lovenox 40 mg SQ daily (WT < 150 kg, CrCl > 30 mL/min) *Enoxaparin/Lovenox 30 mg SQ daily (WT < 150 kg, CrCl > 10-29 mL/min) *Enoxaparin/Lovenox 30 mg SQ BID (WT < 150 kg, CrCl > 30 mL/min) AND *Sequential Compression Device (SCD) Assessment and Plan - Assessment and Plan Plan: 58-year-old male with: Encephalopathy Involuntary movements suspicious for seizures versus extrapyramidal reaction versus stroke versus anoxic injury C6 fracture Question of alcohol abuse Plan: Neuro: Follow neuro checks. Neurology neurosurgery consulted. Stat EEG ordered. Awaiting MRI brain and C-spine. Continue [place] J collar per neurosurgery. Started rectal aspirin for question of stroke while awaiting MRI. May require intubation if EEG shows seizure activity or to obtain MRI as he is unable to lay still. We will consider Ativan as needed as he could be having extrapyramidal reaction from medication. Need to clarify home medications. Cardiovascular: Initially was hypertensive on arrival. Will use nicardipine gtt. if needed. Labetalol as needed. Maintenance IV fluids ordered. Pulmonary: Supplemental O2 as needed. Bronchodilators as needed. Currently protecting airway. GI/liver: N.p.o. for now Renal/: IV hydration, strict intake output, monitor and replete electrolytes, follow BUN/creatinine. ID: No antibiotics at this time. Watch for fever/leukocytosis Endocrine: Watch for hyperglycemia, SSI for glycemic control if needed Heme: Follow CBC Prophylaxis: SCDs. Hold heparin or Lovenox in case patient requires an LP following imaging. Discussed with neurology, discussed with neurosurgery, discussed with ER physician, discussed with APPRENTICE STYLIST, discussed with ICU charge nurse. Condition critical Time spent on critical care excluding procedures 60 minutes
[2018-08-09] MEDS: niCARdipine Inj 25 MG in Sodium Chlor 0.9% Inj 240 ML IV.CONT PRN ×2 (16:00→22:11)
[2018-08-09 16:41] LABS: CKMB Percent 0.2 % (0.0-4.0); Creatine Kinase MB 12.2 ng/mL (0.5-3.6)
[2018-08-09] MEDS: Insulin NovoLOG Aspart Correctional Sugar Inj SQ SCH (19:05)
[2018-08-09] MEDS: Fosphenytoin Inj 200 MGPE in Sodium Chlor 0.9% Inj 50 ML IV.SIG SCH (20:47)
[2018-08-09] MEDS: Sodium Bicarbonate 8.4% Inj 150 MEQ in Dextrose 5% in Water Inj 850 ML IV.CONT SCH ×2 (20:51)
--- NOTE | 2018-08-09 22:39 | MG ---
cc: Jett Tapia MD DATE OF STUDY: 08/09/2018 ELECTROENCEPHALOGRAM RECORD NUMBER: [id number] DESCRIPTION: Background generalized delta activity, low amplitude, eye movement with frequent bursts of generalized shaking, moaning at times, without epileptic correlation. Whole body shaking, EPOCH 45 with movement artifact, bursts of theta delta frequencies. Questionable frontal sharply contoured waveforms. Single-lead EKG showing sinus rhythm, tachycardia, at times poorly formed V waves. INTERPRETATION: Moderate encephalopathy. Involuntary movements did not appear to have an epileptic correlate to them. Clinical correlation. Jett Tapia MD MG/rw , 10:02 PM , 10:07 PM
[2018-08-10] MEDS ORDERED: Etomidate Inj 20 MG/10 ML Ampul IV.PUSH ONE (00:54)
[2018-08-10] MEDS ORDERED: Etomidate Inj 40 MG/20 ML Vial IV.PUSH ONE (01:00)
--- NOTE | 2018-08-10 01:26 | P.PCN ---
Date of procedure: 08/10/18 Procedure: PROCEDURE NOTE PROCEDURE: Endotracheal intubation INDICATION: Acute respiratory failure DETAILS OF PROCEDURE: The patient was placed in optimal position and preoxygenated with 100% FiO2 via [id number]. Neck was maintained in neutral position throughout. Pulse oximeter oxygen saturation of 98 was obtained prior to direct laryngoscopy. The patient was administered Etomidate 20 mg IV for sedation and rocuronium 50 mg IV. Direct laryngoscopy was performed with a 4 Copilot blade and a grade I Cormack-Lehane view was obtained. On single attempt a size 8.0 endotracheal tube was visualized passing through the cords. Correct placement was confirmed with colorimetric CO2 detector. Breath sounds were equal bilaterally. No sounds auscultated over the stomach. The endotracheal tube was secured with a commercial tube medrano at a depth of 24 cm at the lips. The patient was connected to the ventilator. The patient tolerated the procedure well without any apparent complication. Oxygen saturations were maintained greater than 88% at all times. Stat chest x-ray was ordered.
[2018-08-10] MEDS: Propofol 1000 mg/100 ml Inj 1,000 MG/100 ML BOTTLE IV.CONT PRN ×5 (01:36→23:50)
--- NOTE | 2018-08-10 01:43 | XR ---
EXAM DATE: 08/10/2018 1:35 AM EST AGE/SEX: 58 years / Male INDICATIONS: Post intubation. CLINICAL DATA: This is the patient's subsequent encounter. Patient reports that signs and symptoms h ave been present for 2 days and indicates a pain score of Nonresponsive. MEDICAL/SURGICAL HISTORY: Non-responsive. Non-responsive. COMPARISON: [facility] – [place], CHEST 1V SINGLE AP, 08/09/2018. . FINDINGS: Single view the chest some shows the tracheostomy tube has been placed. Its in good position. Lungs a re grossly clear. Heart and mediastinum unremarkable. CONCLUSION: ET tube in good position. Lungs are grossly clear. Electronically signed by: Alvaro Denis MD Board Certified Radiologist 08/10/2018 1:41 AM EST
[2018-08-10 02:06] LABS: ABG Base Excess 4.7 mmol/L (-2-2); ABG PCO2 35 mmHg (38-42); ABG PO2 86 mmHg (61-120)
[2018-08-10] MEDS: Insulin NovoLOG Aspart Correctional Sugar Inj SQ SCH ×4 (02:26→17:57)
[2018-08-10] MEDS: Oral Hygiene Kit OROPHARYNG SCH ×4 (04:00→23:50)
[2018-08-10 05:27] LABS: Chol/HDL Ratio 1.54 Ratio
[2018-08-10] MEDS: Sodium Bicarbonate 8.4% Inj 150 MEQ in Dextrose 5% in Water Inj 850 ML IV.CONT SCH ×6 (05:48→20:12)
[2018-08-10 05:54] LABS: CKMB Percent 0.1 % (0.0-4.0); Creatine Kinase MB 4.8 ng/mL (0.5-3.6)
[2018-08-10] MEDS: Chlorhexidine 0.12% Oral Kit 15 ML UDC OROPHARYNG SCH ×2 (08:01→20:13)
[2018-08-10] MEDS: Aspirin 300 MG Supp RECTAL SCH (08:01)
[2018-08-10] MEDS: Fosphenytoin Inj 200 MGPE in Sodium Chlor 0.9% Inj 50 ML IV.SIG SCH (08:09)
[2018-08-10] MEDS: Lacosamide Inj 100 MG in Sodium Chlor 0.9% Inj 100 ML IV.SIG SCH ×2 (08:46→20:13)
--- NOTE | 2018-08-10 10:39 | CT ---
EXAM DATE: 08/10/2018 10:29 AM EST AGE/SEX: 58 years / Male INDICATIONS: Found unresponsive. CLINICAL DATA: This is the patient's initial encounter. Patient reports that signs and symptoms have been present for 1 day and indicates a pain score of Nonresponsive. MEDICAL/SURGICAL HISTORY: Non-responsive. Non-responsive. RADIATION DOSE: 35.14 CTDI (mGy) ; Combined studies COMPARISON: No prior exams available for comparison. TECHNIQUE: Contiguous axial images were acquired using a multirow detector CT scanner without contra st. Multiplanar reconstruction in the sagittal and coronal planes was performed. Using automated exp osure control and adjustment of the mA and/or kV according to patient size, radiation dose was kept a s low as reasonably achievable to obtain optimal diagnostic quality images. DICOM format image data is available electronically for review and comparison. FINDINGS: Vertebrae: Normal vertebral body height. There is very prominent flowing spurs seen throughout the t horacic spine likely from DISH. Alignment: The thoracic vertebral bodies are normally aligned in the sagittal plane. There is a mini mal dextrocurvature of the upper and mid thoracic spine. There are subpleural density at the posterior aspect of the lower lobes bilaterally. T1 - T2: Normal. T2 - T3: The thecal sac has a normal diameter. No evidence of disc bulge or protrusion. T3 - T4: The thecal sac has a normal diameter. No evidence of disc bulge or protrusion. T4 - T5: The thecal sac has a normal diameter. No evidence of disc bulge or protrusion. T5 - T6: The thecal sac has a normal diameter. No evidence of disc bulge or protrusion. T6 - T7: The thecal sac has a normal diameter. No evidence of disc bulge or protrusion. T7 - T8: The thecal sac has a normal diameter. No evidence of disc bulge or protrusion. T8 - T9: The thecal sac has a normal diameter. No evidence of disc bulge or protrusion. T9 - T10: The thecal sac has a normal diameter. No evidence of disc bulge or protrusion. T10 - T11: The thecal sac has a normal diameter. No evidence of disc bulge or protrusion. T11 - T12: The thecal sac has a normal diameter. No evidence of disc bulge or protrusion. T12 - L1: The thecal sac has a normal diameter. No evidence of disc bulge or protrusion. CONCLUSION: 1. No fracture is seen. 2. Prominent spurring seen throughout the thoracic spine but be secondary to DISH. 3. Subpleural areas of consolidation or atelectasis at the posterior lower lungs. Electronically signed by: Azam Dutton MD Board Certified Radiologist 08/10/2018 10:37 AM EST
--- NOTE | 2018-08-10 10:45 | CT ---
EXAM DATE: 08/10/2018 10:33 AM EST AGE/SEX: 58 years / Male INDICATIONS: Found unresponsive. CLINICAL DATA: This is the patient's initial encounter. Patient reports that signs and symptoms have been present for 1 day and indicates a pain score of Nonresponsive. MEDICAL/SURGICAL HISTORY: Non-responsive. Non-responsive. RADIATION DOSE: 35.14 CTDI (mGy) COMPARISON: No prior exams available for comparison. TECHNIQUE: Contiguous axial images were acquired with a multirow detector CT scanner without contras t. Multiplanar reconstructions in the sagittal and coronal plane were also performed. Using automate d exposure control and adjustment of the mA and/or kV according to patient size, radiation dose was k ept as low as reasonably achievable to obtain optimal diagnostic quality images. DICOM format image data is available electronically for review and comparison. FINDINGS: Vertebrae: Normal vertebral body height. There are prominent spurs in the lower thoracic and upper a nd mid lumbar spine likely from DISH. Alignment: Normal. No subluxation. T12-L1: The thecal sac has a normal diameter. No evidence of disc bulge or protrusion. The neural foramina are patent bilaterally. L1-L2: The thecal sac has a normal diameter. No evidence of disc bulge or protrusion. The neural f oramina are patent bilaterally. L2-L3: The thecal sac has a normal diameter. No evidence of disc bulge or protrusion. The neural f oramina are patent bilaterally. L3-L4: There is mild diffuse disc bulge straightening the anterior margin of thecal sac. There is mi ld narrowing of the AP dimension of thecal sac. The neural foramina are patent bilaterally. L4-L5: There is mild diffuse disc bulge. There is calcification at the posterior disc margin. This c auses a mild impression on the thecal sac. The neural foramina are patent bilaterally. There is facet hypertrophy. L5-S1: The thecal sac has a normal diameter. No evidence of disc bulge or protrusion. The neural f oramina are patent bilaterally. There is moderate to severe facet hypertrophy being worse on the left . CONCLUSION: 1. No acute abnormality seen. 2. Prominent spur seen throughout the thoracic and lumbar spine likely from DISH. 3. Mild disc bulges at the L3-L4 and L4-L5 levels. 4. Lower lumbar facet hypertrophy. Electronically signed by: Azam Dutton MD Board Certified Radiologist 08/10/2018 10:44 AM EST
--- NOTE | 2018-08-10 10:49 | MR ---
EXAM DATE: 08/10/2018 10:37 AM EST AGE/SEX: 58 years / Male INDICATIONS: . Fall. C^ fracture. CLINICAL DATA: This is the patient's initial encounter. Patient reports that signs and symptoms have been present for 2 days and indicates a pain score of 0/10. MEDICAL/SURGICAL HISTORY: Non-responsive. Non-responsive. COMPARISON: [facility] – [place], CTA HEAD W CONTRAST W 3D, 08/09/2018. [facility] – [place], CT HEAD W/O CONTRAST, 08/09/2018. . TECHNIQUE: Multiplanar, multisequence examination of the brain was performed without contrast. FINDINGS: Cerebrum: The ventricles are normal for age. There is mild widening of the cortical sulci. No evide nce of midline shift, mass lesion, hemorrhage or acute infarction. No extraaxial fluid collections a re seen. The pituitary gland and suprasellar cistern are normal in configuration. White Matter: No significant signal abnormalities are seen in the white matter. Posterior Fossa: The cerebellum and brainstem are intact. The 4th ventricle is midline. The cerebel lopontine angle is unremarkable. The cerebellar tonsils are normal in position. Diffusion Imaging: No focal areas of restricted diffusion are seen. No evidence of acute infarction . Extracranial: The visualized portions of the orbits and paranasal sinuses are unremarkable. CONCLUSION: 1. No acute intracranial abnormality. 2. Mild atrophy. Electronically signed by: Azam Dutton MD Board Certified Radiologist 08/10/2018 10:47 AM EST
--- NOTE | 2018-08-10 10:56 | P.PNCC ---
Subjective Subjective Remarks/Hospital Course: 08/09: 58-year-old male who was found down in his friend's garage this morning. He has a history of alcohol abuse. He recently sold his house and was staying at a friend's home. Reportedly he was due to fly later today. Patient was brought to the ER by EMS and was noted to have involuntary movements with jerking movements involving upper and lower extremities as well as his head. He received Ativan 3 mg IV and was loaded with Keppra. Initially stroke alert was called. Head CT was negative for any bleed however there was question of C6 fracture. Neurology and neurosurgery were consulted. Patient was loaded with IV Cerebyx and Vimpat by neurology. He had a Afognak J collar placed after placing hard cervical collar by neurosurgery. When I evaluated the patient in the ER he was still having involuntary movements which appeared to be episodic with occasional twitchings on his face and nystagmus. This did not appear to be generalized tonic-clonic convulsions however appeared more like an extrapyramidal reaction. I ordered a stat EEG. Patient moving around too much to obtain MRI at this time. His urine tox screen was negative. He was positive for alcohol. Patient nonverbal. His involuntary movements get exaggerated on stimulation. He was reportedly completely normal yesterday. 08/10: Patient had an episode of emesis last night followed by labored breathing. He continued to have involuntary movements. He was intubated and placed on mechanical ventilation. Currently sedated with propofol, orally intubated on mechanical ventilation. Awaiting MRI brain and C-spine. EEG done yesterday did not show any seizure activity. Objective Vital Signs / I&O: Vital Signs 08/09/18 10:30 08/09/18 12:29 08/09/18 13:28 Temperature Pulse Rate 74 Respiratory Rate Blood Pressure 145/86 H 147/85 H Pulse Oximetry 100 08/09/18 15:40 08/09/18 15:48 08/09/18 15:49 Temperature 98.5 F Pulse Rate 74 74 75 Respiratory Rate 36 H 36 H 36 H Blood Pressure 154/104 H 160/105 H 159/101 H Pulse Oximetry 94 L 94 L 92 L 08/09/18 16:00 08/09/18 16:12 08/09/18 16:29 Temperature 98.8 F Pulse Rate 76 77 Respiratory Rate 31 H 34 H 22 Blood Pressure 181/110 H 172/101 H Pulse Oximetry 94 L 93 L 08/09/18 16:42 08/09/18 17:00 08/09/18 17:12 Temperature Pulse Rate 76 74 74 Respiratory Rate 31 H 28 H 27 H Blood Pressure 132/75 136/80 Pulse Oximetry 93 L 94 L 94 L 08/09/18 17:45 08/09/18 18:00 08/09/18 18:30 Temperature Pulse Rate 76 77 87 Respiratory Rate 35 H 37 H 62 H Blood Pressure 145/88 H 131/72 161/66 H Pulse Oximetry 93 L 91 L 88 L 08/09/18 18:45 08/09/18 19:00 08/09/18 19:15 Temperature Pulse Rate 79 78 79 Respiratory Rate 46 H 47 H 41 H Blood Pressure 166/67 H 121/56 L 125/69 Pulse Oximetry 92 L 91 L 91 L 08/09/18 19:30 08/09/18 19:45 08/09/18 20:00 Temperature 98.4 F Pulse Rate 80 80 80 Respiratory Rate 44 H 41 H 38 H Blood Pressure 124/69 128/65 128/71 Pulse Oximetry 92 L 91 L 93 L 08/09/18 20:15 08/09/18 20:25 08/09/18 20:30 Temperature Pulse Rate 81 82 Respiratory Rate 40 H 41 H Blood Pressure 136/68 135/70 Pulse Oximetry 93 L 92 L 92 L 08/09/18 20:45 08/09/18 21:00 08/09/18 21:15 Temperature Pulse Rate 82 82 82 Respiratory Rate 38 H 38 H 39 H Blood Pressure 144/79 H 151/70 H 145/66 H Pulse Oximetry 92 L 93 L 94 L 08/09/18 21:30 08/09/18 21:45 08/09/18 22:00 Temperature Pulse Rate 83 81 81 Respiratory Rate 37 H 45 H 39 H Blood Pressure 144/70 H 141/66 H 145/65 H Pulse Oximetry 93 L 93 L 93 L 08/09/18 22:15 08/09/18 22:30 08/09/18 22:45 Temperature Pulse Rate 81 81 81 Respiratory Rate 47 H 40 H 36 H Blood Pressure 149/70 H 153/74 H 149/70 H Pulse Oximetry 94 L 94 L 94 L 08/09/18 23:00 08/09/18 23:15 08/09/18 23:30 Temperature Pulse Rate 82 84 83 Respiratory Rate 39 H 41 H 40 H Blood Pressure 152/77 H 156/67 H 157/72 H Pulse Oximetry 94 L 89 L 88 L 08/09/18 23:45 08/10/18 00:00 08/10/18 00:15 Temperature 99.1 F Pulse Rate 83 86 88 Respiratory Rate 47 H 45 H 45 H Blood Pressure 145/73 H 149/68 H 160/74 H Pulse Oximetry 87 L 88 L 83 L 08/10/18 00:30 08/10/18 01:00 08/10/18 03:50 Temperature Pulse Rate 91 H Respiratory Rate 51 H 18 Blood Pressure 166/79 H 139/70 Pulse Oximetry 87 L 94 L 08/10/18 03:55 08/10/18 04:00 08/10/18 04:05 Temperature 99.7 F H Pulse Rate 76 76 76 Respiratory Rate 24 23 23 Blood Pressure 138/69 145/74 H 139/76 Pulse Oximetry 99 99 99 08/10/18 04:10 08/10/18 04:15 08/10/18 04:20 Temperature Pulse Rate 76 76 76 Respiratory Rate 24 23 24 Blood Pressure 144/79 H 144/81 H 144/77 H Pulse Oximetry 99 99 99 08/10/18 04:25 08/10/18 04:30 08/10/18 04:35 Temperature Pulse Rate 76 76 76 Respiratory Rate 24 22 22 Blood Pressure 146/78 H 145/77 H 143/81 H Pulse Oximetry 99 99 99 08/10/18 04:40 08/10/18 04:45 08/10/18 04:46 Temperature Pulse Rate 76 76 Respiratory Rate 24 23 23 Blood Pressure 144/79 H 143/80 H Pulse Oximetry 99 99 99 08/10/18 04:50 08/10/18 04:55 08/10/18 05:00 Temperature Pulse Rate 76 76 76 Respiratory Rate 23 23 23 Blood Pressure 144/82 H 143/80 H 144/80 H Pulse Oximetry 99 99 99 08/10/18 05:05 08/10/18 05:10 08/10/18 05:15 Temperature Pulse Rate 76 76 75 Respiratory Rate 24 25 H 23 Blood Pressure 145/81 H 140/81 144/80 H Pulse Oximetry 99 99 99 08/10/18 05:20 08/10/18 05:25 08/10/18 05:30 Temperature Pulse Rate 75 75 75 Respiratory Rate 22 24 24 Blood Pressure 141/79 H 139/80 137/78 Pulse Oximetry 99 99 99 08/10/18 05:35 08/10/18 05:40 08/10/18 05:45 Temperature Pulse Rate 75 76 76 Respiratory Rate 24 27 H 24 Blood Pressure 140/84 149/89 H 147/88 H Pulse Oximetry 99 99 99 08/10/18 06:00 08/10/18 06:05 08/10/18 06:35 Temperature Pulse Rate 76 76 76 Respiratory Rate 26 H 24 24 Blood Pressure 141/81 H 135/77 Pulse Oximetry 99 99 99 08/10/18 07:00 08/10/18 07:05 08/10/18 07:35 Temperature Pulse Rate 76 76 77 Respiratory Rate 24 23 25 H Blood Pressure 135/78 142/82 H Pulse Oximetry 99 99 99 08/10/18 08:00 08/10/18 08:05 08/10/18 09:11 Temperature 100.8 F H Pulse Rate 76 76 Respiratory Rate 27 H 26 H 23 Blood Pressure 142/84 H Pulse Oximetry 99 99 99 Intake & Output 08/09/18 08/10/18 08/10/18 18:59 06:59 18:59 Intake Total 655 / 655 1414 / 1414 154 / 154 Output Total 1350 / 1350 Balance 655 / 655 64 / 64 154 / 154 Weight 87.8 kg 89.6 kg Intake: IV 655 / 655 1414 / 1414 154 / 154 KCl Inj 10 MEQ In 1/2 Normal 305 / 305 Saline Inj 1,000 ML @ 42 mls/hr IV.CONT .[id number] [facility] Rx#: [id number] Diprivan 1000 mg/100 ml Inj 1, 100 / 100 000 mg In 100 ml @ 5 MCG/KG/MIN 2.634 mls/hr IV.CONT TITRATE PRN Rx#:[id number] NS Inj 1,000 ML @ 70 mls/hr IV. 70 / 70 CONT .[id number] [facility] Rx#:[id number] Sodium Bicarbonate 8.4% Inj 150 1000 / 1000 MEQ In D5W Inj 850 ML @ 125 mls/hr IV.CONT .Q8H [facility] Rx#: [id number] Cardene Inj 25 MG In NS Inj 240 250 / 250 ML @ 5 MG/HR 50 mls/hr IV.CONT TITRATE PRN Rx#:[id number] Cerebyx Inj 200 MGPE In NS Inj 54 / 54 54 / 54 50 ML @ 216 mls/hr IV.SIG Q12HR [facility] Rx#:[id number] Cerebyx Inj 1,000 MGPE In NS 70 / 70 Inj 50 ML @ 280 mls/hr IV.SIG ONCE ONE Rx#:[id number] Vimpat Inj 100 MG In NS Inj 100 110 / 110 110 / 110 ML @ 110 mls/hr IV.SIG Q12HR [facility] Rx#:[id number] Keppra 1000 mg/100 mL Premix 100 / 100 100 ML @ 400 mls/hr IV.SIG ONCE ONE Rx#:[id number] Oral 0 / 0 0 / 0 Output: Urine Amount (Catheter) 1350 / 1350 Indwelling Urethral Catheter 1350 / 1350 Other: # Bowel Movements 0 Weight On Admission 90.7 kg Result Diagrams: 08/09/18 09:25 08/09/18 09:25 Imaging: Head CT 08/09/18 09:20 CONCLUSION: 1. No acute intracranial abnormality is seen. 2. Mild widening of the cortical sulci which could suggest some atrophy. Report was called by [Dr. Dutton to at 9:49 AM. ] Chest X-Ray 08/09/18 09:21 CONCLUSION: No acute cardiopulmonary process. Cervical Spine CT 08/09/18 09:23 CONCLUSION: 1. Fracturing through anterior flowing spurs at the anterior C6 level with the fracture extending into the anterior inferior left lateral aspect of the C6 vertebral body. Empty displacement is not seen. No other possible fractures are seen. 2. 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 3. Degenerative change. Head CTA 08/09/18 09:28 CONCLUSION: Negative CTA. Report was called by [Dr. Dutton to Dr. Faustin. A message was left on the voicemail. ] Neck CTA 08/09/18 09:28 CONCLUSION: Negative CTA of the neck. Chest X-Ray 08/10/18 00:00 CONCLUSION: ET tube in good position. Lungs are grossly clear. Thoracic Spine CT 08/10/18 00:00 CONCLUSION: 1. No fracture is seen. 2. Prominent spurring seen throughout the thoracic spine but be secondary to DISH. 3. Subpleural areas of consolidation or atelectasis at the posterior lower lungs. Objective Remarks: HEENT/ Neuro: Sedated, orally intubated, Pallor present, no icterus, tongue/ mucosa moist Neck: No JVD Chest/Pulm: on mech vent, good air entry bilaterally, no wheezing or crackles CVS: S1-S2 regular, no murmur GI/abdomen: soft, nontender, bowel sounds sluggish Extremities: warm bilaterally, no edema Assessment and Plan - Assessment and Plan Plan: 58-year-old male with: Encephalopathy Involuntary movements suspicious for seizures versus extrapyramidal reaction versus stroke versus anoxic injury C6 fracture Question of alcohol abuse Rhabdomyolysis Acute respiratory failure on mechanical ventilation Plan: Neuro: Sedation with propofol, daily sedation vacation. Follow neuro checks. Neurology neurosurgery consulted. EEG done in ER did not reveal any seizure activity with ongoing involuntary movements.. Awaiting MRI brain and C-spine. Continue Afognak J collar per neurosurgery. Started rectal aspirin for question of stroke while awaiting MRI. Need to clarify home medications. Cardiovascular: Initially was hypertensive on arrival. Nicardipine gtt. if needed. Labetalol as needed. Maintenance IV fluids ordered. Pulmonary: Intubated for airway protection and placed on mechanical ventilation following episode of emesis with question of aspiration on 12 AM. Continue mechanical ventilation, vent bundle, bronchodilators as needed. Daily CPAP trial starting tomorrow to decide extubation provided neurologic status improving. GI/liver: Start tube feeds and advance to goal as tolerated Renal/: IV hydration, strict intake output, monitor and replete electrolytes, follow BUN/creatinine. On bicarb drip in view of rhabdomyolysis. Follow CPK. ID: No antibiotics at this time. Watch for fever/leukocytosis Endocrine: Watch for hyperglycemia, SSI for glycemic control if needed Heme: Follow CBC Prophylaxis: SCDs. Start heparin 5000 units subcutaneously every 8 hourly, Pepcid for GI prophylaxis Discussed with neurosurgery, discussed with ER physician, discussed with ICU charge nurse. Condition critical Time spent on critical care excluding procedures 30 minutes
--- NOTE | 2018-08-10 11:14 | MR ---
EXAM DATE: 08/10/2018 11:03 AM EST AGE/SEX: 58 years / Male INDICATIONS: . Fall. C6 fracture. CLINICAL DATA: This is the patient's initial encounter. Patient reports that signs and symptoms have been present for 1 day and indicates a pain score of 0/10. MEDICAL/SURGICAL HISTORY: Non-responsive. Non-responsive. COMPARISON: [facility] [place], CT CERVICAL SPINE W CONTRAST, 08/09/2018. . TECHNIQUE: Multiplanar, multisequence MRI examination of the cervical spine was performed without co ntrast. FINDINGS: Vertebrae: Normal vertebral body height. Homogeneous marrow signal. There is linear low signal seen in the anterior inferior aspect of the C6 vertebral body consistent with the known fracture. There i s minimal increased signal seen immediately adjacent to the fracture line. A large amount of edema is not seen. There are prominent flowing spurs extending from C4 down to the thoracic spine. There is a fracture through the flowing spurs at the C6 level. There is some increased signal/edema at this fra cture site. Alignment: Normal. Cord: Normal configuration and signal. Post Fossa: The cerebellar tonsils are normal in position. C2-C3: The thecal sac has a normal configuration. There is no evidence of disc herniation or spinal canal stenosis. The neural foramina are patent bilaterally. There is facet hypertrophy. C3-C4: There is mild central disc protrusion causing a mild impression on thecal sac. These be CSF a round the cord. There is facet hypertrophy. This causes narrowing of narrowing of the neural foramina particularly on the left. C4-C5: The thecal sac has a normal configuration. There is no evidence of disc herniation or spinal canal stenosis. The neural foramina are patent bilaterally. C5-C6: There is a wide disc protrusion with its apex at the left lateral recess region causing a mil d impression on the thecal sac. These be CSF around the cord. There is uncovertebral hypertrophy. The re is narrowing of the neural foramina. C6-C7: The thecal sac has a normal configuration. There is no evidence of disc herniation or spinal canal stenosis. The neural foramina are patent bilaterally. C7-T1: No epidural impressions seen. CONCLUSION: 1. Fracturing through the prominent flowing spurs at the C6 level and extending into the anterior in ferior aspect of C6 vertebral body without displacement. Minimal edema seen around the fracture site. 2. Prominent spurring extending from C4 to into the thoracic spine consistent with DISH. 3. Mild central disc protrusion at the C3-C4 level. 4. Mild disc protrusion with the apex at the left lateral recess region at the C5-C6 level. 5. Neural foraminal narrowing at the C3-C4 and C5-C6 levels. Electronically signed by: Azam Dutton MD Board Certified Radiologist 08/10/2018 11:13 AM EST
--- NOTE | 2018-08-10 11:45 | P.PNNEU ---
Subjective Subjective Comments: intubated Active Medications: Active Medications Aspirin (Aspirin Supp) 300 mg RECTAL DAILY [facility] Last Admin: 08/10/18 08:01 Dose: 300 mg Chlorhexidine Gluconate (Peridex 0.12% Oral Kit) 15 ml OROPHARYNG BID@0800, 2000 [facility] Last Admin: 08/10/18 08:01 Dose: 15 ml Dextrose (D50w Vial) 50 ml IV.PUSH UNSCH PRN PRN Reason: PER HYPOGLYCEMIA PROTOCOL Famotidine (Pepcid) 20 mg NG/OG BID [facility] Glucagon (Glucagon Inj) 1 mg OTHER UNSCH PRN PRN Reason: for Hypoglycemia Protocol Heparin Sodium (Porcine) (Heparin Inj) 5,000 units SQ Q8H [facility] Nicardipine HCl 25 mg/ Sodium (Chloride) 250 mls @ 50 mls/hr IV.CONT TITRATE PRN; Protocol PRN Reason: Per Protocol Last Titration: 08/10/18 07:43 Dose: 0 mg/hr, 0 mls/hr Lacosamide 100 mg/ Sodium (Chloride) 110 mls @ 110 mls/hr IV.SIG Q12HR [facility] Last Infusion: 08/10/18 08:58 Dose: Infused Fosphenytoin Sodium 200 mgpe/ (Sodium Chloride) 54 mls @ 216 mls/hr IV.SIG Q12HR [facility] Last Infusion: 08/10/18 08:58 Dose: Infused Sodium Bicarbonate 150 meq/ (Dextrose) 1,000 mls @ 125 mls/hr IV.CONT .Q8H [facility] Last Infusion: 08/10/18 07:59 Dose: 125 mls/hr Propofol (Diprivan 1000 Mg/100 Ml Inj) 1,000 mg in 100 mls @ 2.634 mls/hr IV.CONT TITRATE PRN; Protocol PRN Reason: Per Protocol Last Titration: 08/10/18 08:58 Dose: 35 mcg/kg/min, 18.44 mls/hr Insulin Aspart (Novolog Insulin Correctional Sugar Inj) 0 unit SQ Q6HR [facility]; Protocol Last Admin: 08/10/18 05:10 Dose: 1 unit Labetalol HCl (Trandate Inj) 10 mg IV.PUSH Q2H PRN PRN Reason: For SBP > 220 or DBP > 120 Lorazepam (Ativan Inj) 2 mg IV.PUSH Q6H@,,, PRN PRN Reason: AGITATION SEIZURE LIKE ACTIV Miscellaneous Medication () 1 each OROPHARYNG 0000,0400,1200,1600 [facility] Last Admin: 08/10/18 04:00 Dose: 1 each Ondansetron HCl (Zofran Inj) 4 mg IV.PUSH UNSCH X1 PRN PRN Reason: NAUSEA Stop: 08/13/18 01:04 Sodium Chloride (Ns Flush) 2 ml IV.FLUSH BID [facility] Last Admin: 08/10/18 08:10 Dose: 2 ml Sodium Chloride (Ns Flush) 2 ml IV.FLUSH PRN PRN PRN Reason: FLUSH AFTER USING IV ACCESS Allergies/Adverse Reactions: Allergies Allergy/AdvReac Type Severity Reaction Status Date / Time No Known Allergies Allergy Verified 08/09/18 09:20 Review of Systems unobtainable due to endotracheal tube, unobtainable due to mental status Physical Exam Vital signs: Vital Signs 08/09/18 12:29 08/09/18 13:28 08/09/18 15:40 Temperature 98.5 F Pulse Rate 74 74 Respiratory Rate 36 H Blood Pressure 145/86 H 147/85 H 154/104 H Pulse Oximetry 94 L 08/09/18 15:48 08/09/18 15:49 08/09/18 16:00 Temperature 98.8 F Pulse Rate 74 75 76 Respiratory Rate 36 H 36 H 31 H Blood Pressure 160/105 H 159/101 H 181/110 H Pulse Oximetry 94 L 92 L 94 L 08/09/18 16:12 08/09/18 16:29 08/09/18 16:42 Temperature Pulse Rate 77 76 Respiratory Rate 34 H 22 31 H Blood Pressure 172/101 H 132/75 Pulse Oximetry 93 L 93 L 08/09/18 17:00 08/09/18 17:12 08/09/18 17:45 Temperature Pulse Rate 74 74 76 Respiratory Rate 28 H 27 H 35 H Blood Pressure 136/80 145/88 H Pulse Oximetry 94 L 94 L 93 L 08/09/18 18:00 08/09/18 18:30 08/09/18 18:45 Temperature Pulse Rate 77 87 79 Respiratory Rate 37 H 62 H 46 H Blood Pressure 131/72 161/66 H 166/67 H Pulse Oximetry 91 L 88 L 92 L 08/09/18 19:00 08/09/18 19:15 08/09/18 19:30 Temperature Pulse Rate 78 79 80 Respiratory Rate 47 H 41 H 44 H Blood Pressure 121/56 L 125/69 124/69 Pulse Oximetry 91 L 91 L 92 L 08/09/18 19:45 08/09/18 20:00 08/09/18 20:15 Temperature 98.4 F Pulse Rate 80 80 81 Respiratory Rate 41 H 38 H 40 H Blood Pressure 128/65 128/71 136/68 Pulse Oximetry 91 L 93 L 93 L 08/09/18 20:25 08/09/18 20:30 08/09/18 20:45 Temperature Pulse Rate 82 82 Respiratory Rate 41 H 38 H Blood Pressure 135/70 144/79 H Pulse Oximetry 92 L 92 L 92 L 08/09/18 21:00 08/09/18 21:15 08/09/18 21:30 Temperature Pulse Rate 82 82 83 Respiratory Rate 38 H 39 H 37 H Blood Pressure 151/70 H 145/66 H 144/70 H Pulse Oximetry 93 L 94 L 93 L 08/09/18 21:45 08/09/18 22:00 08/09/18 22:15 Temperature Pulse Rate 81 81 81 Respiratory Rate 45 H 39 H 47 H Blood Pressure 141/66 H 145/65 H 149/70 H Pulse Oximetry 93 L 93 L 94 L 08/09/18 22:30 08/09/18 22:45 08/09/18 23:00 Temperature Pulse Rate 81 81 82 Respiratory Rate 40 H 36 H 39 H Blood Pressure 153/74 H 149/70 H 152/77 H Pulse Oximetry 94 L 94 L 94 L 08/09/18 23:15 08/09/18 23:30 08/09/18 23:45 Temperature Pulse Rate 84 83 83 Respiratory Rate 41 H 40 H 47 H Blood Pressure 156/67 H 157/72 H 145/73 H Pulse Oximetry 89 L 88 L 87 L 08/10/18 00:00 08/10/18 00:15 08/10/18 00:30 Temperature 99.1 F Pulse Rate 86 88 91 H Respiratory Rate 45 H 45 H 51 H Blood Pressure 149/68 H 160/74 H 166/79 H Pulse Oximetry 88 L 83 L 87 L 08/10/18 01:00 08/10/18 03:50 08/10/18 03:55 Temperature Pulse Rate 76 Respiratory Rate 18 24 Blood Pressure 139/70 138/69 Pulse Oximetry 94 L 99 08/10/18 04:00 08/10/18 04:05 08/10/18 04:10 Temperature 99.7 F H Pulse Rate 76 76 76 Respiratory Rate 23 23 24 Blood Pressure 145/74 H 139/76 144/79 H Pulse Oximetry 99 99 99 08/10/18 04:15 08/10/18 04:20 08/10/18 04:25 Temperature Pulse Rate 76 76 76 Respiratory Rate 23 24 24 Blood Pressure 144/81 H 144/77 H 146/78 H Pulse Oximetry 99 99 99 08/10/18 04:30 08/10/18 04:35 08/10/18 04:40 Temperature Pulse Rate 76 76 76 Respiratory Rate 22 22 24 Blood Pressure 145/77 H 143/81 H 144/79 H Pulse Oximetry 99 99 99 08/10/18 04:45 08/10/18 04:46 08/10/18 04:50 Temperature Pulse Rate 76 76 Respiratory Rate 23 23 23 Blood Pressure 143/80 H 144/82 H Pulse Oximetry 99 99 99 08/10/18 04:55 08/10/18 05:00 08/10/18 05:05 Temperature Pulse Rate 76 76 76 Respiratory Rate 23 23 24 Blood Pressure 143/80 H 144/80 H 145/81 H Pulse Oximetry 99 99 99 08/10/18 05:10 08/10/18 05:15 08/10/18 05:20 Temperature Pulse Rate 76 75 75 Respiratory Rate 25 H 23 22 Blood Pressure 140/81 144/80 H 141/79 H Pulse Oximetry 99 99 99 08/10/18 05:25 08/10/18 05:30 08/10/18 05:35 Temperature Pulse Rate 75 75 75 Respiratory Rate 24 24 24 Blood Pressure 139/80 137/78 140/84 Pulse Oximetry 99 99 99 08/10/18 05:40 08/10/18 05:45 08/10/18 06:00 Temperature Pulse Rate 76 76 76 Respiratory Rate 27 H 24 26 H Blood Pressure 149/89 H 147/88 H Pulse Oximetry 99 99 99 08/10/18 06:05 08/10/18 06:35 08/10/18 07:00 Temperature Pulse Rate 76 76 76 Respiratory Rate 24 24 24 Blood Pressure 141/81 H 135/77 Pulse Oximetry 99 99 99 08/10/18 07:05 08/10/18 07:35 08/10/18 08:00 Temperature Pulse Rate 76 77 76 Respiratory Rate 23 25 H 27 H Blood Pressure 135/78 142/82 H Pulse Oximetry 99 99 99 08/10/18 08:05 08/10/18 09:11 Temperature 100.8 F H Pulse Rate 76 Respiratory Rate 26 H 23 Blood Pressure 142/84 H Pulse Oximetry 99 99 Intake & Output 08/09/18 08/10/18 08/10/18 18:59 06:59 18:59 Intake Total 655 / 655 1414 / 1414 264 / 264 Output Total 1350 / 1350 Balance 655 / 655 64 / 64 264 / 264 Weight 87.8 kg 89.6 kg Intake: IV 655 / 655 1414 / 1414 264 / 264 KCl Inj 10 MEQ In 1/2 Normal 305 / 305 Saline Inj 1,000 ML @ 42 mls/hr IV.CONT .[id number] [facility] Rx#: [id number] Diprivan 1000 mg/100 ml Inj 1, 100 / 100 000 mg In 100 ml @ 5 MCG/KG/MIN 2.634 mls/hr IV.CONT TITRATE PRN Rx#:[id number] NS Inj 1,000 ML @ 70 mls/hr IV. 70 / 70 CONT .[id number] [facility] Rx#:[id number] Sodium Bicarbonate 8.4% Inj 150 1000 / 1000 MEQ In D5W Inj 850 ML @ 125 mls/hr IV.CONT .Q8H [facility] Rx#: [id number] Cardene Inj 25 MG In NS Inj 240 250 / 250 ML @ 5 MG/HR 50 mls/hr IV.CONT TITRATE PRN Rx#:[id number] Cerebyx Inj 200 MGPE In NS Inj 54 / 54 54 / 54 50 ML @ 216 mls/hr IV.SIG Q12HR [facility] Rx#:[id number] Cerebyx Inj 1,000 MGPE In NS 70 / 70 Inj 50 ML @ 280 mls/hr IV.SIG ONCE ONE Rx#:[id number] Vimpat Inj 100 MG In NS Inj 100 110 / 110 110 / 110 110 / 110 ML @ 110 mls/hr IV.SIG Q12HR [facility] Rx#:[id number] Keppra 1000 mg/100 mL Premix 100 / 100 100 ML @ 400 mls/hr IV.SIG ONCE ONE Rx#:[id number] Oral 0 / 0 0 / 0 Output: Urine Amount (Catheter) 1350 / 1350 Indwelling Urethral Catheter 1350 / 1350 Other: # Bowel Movements 0 Weight On Admission 90.7 kg Narrative: intubated, not following, no involuntary movements - Constitutional no acute distress - Urinary Catheter Management Indwelling Urethral Catheter Cath placed during this visit: yes Reason for continuing: Hourly intake/output Insertion date: 08/09/18 Insertion time: 18:30 Objective Laboratory Results - last 24 hr 08/09/18 08/09/18 08/09/18 09:25 09:25 09:25 ESR 2 Puncture Site Patient Temperature O2 Saturation ABG pH ABG pCO2 ABG pO2 ABG HCO3 ABG O2 Content ABG Base Excess ABG Methemoglobin [place] Test Hemoglobin Carboxyhemoglobin O2 Delivery Device Liter Flow Vent Setting Inspired O2 Critical Value POC Glucose Hemoglobin A1c 5.6 Lactic Acid Ammonia Total Creatine Kinase CK-MB (CK-2) CK-MB (CK-2) % C-Reactive Protein Less than 0.29 Triglycerides 67 Cholesterol 230 H LDL Cholesterol, Calc 83 HDL Cholesterol 133.4 H Cholesterol/HDL Ratio 1.72 Vitamin B12 217 Urine Color Urine Clarity Urine pH Ur Specific [place] Urine Protein Urine Glucose (UA) Urine Ketones Urine Occult Blood Urine Nitrate Urine Bilirubin Urine Urobilinogen Ur Leukocyte Esterase Urine RBC Urine WBC Ur Squamous Epith Cells Urine Bacteria Hyaline Casts Urine Mucus Micro UA Comment Ur Microscopic Review Urine Culture Comments Urine Opiates Screen Ur Barbiturates Screen Phenytoin 1.1 L Ur Amphetamines Screen U Benzodiazepines Scrn Urine Cocaine Screen U Cannabinoids Screen 08/09/18 08/09/18 08/09/18 11:00 11:00 12:05 ESR Puncture Site Patient Temperature O2 Saturation ABG pH ABG pCO2 ABG pO2 ABG HCO3 ABG O2 Content ABG Base Excess ABG Methemoglobin [place]on Test Hemoglobin Carboxyhemoglobin O2 Delivery Device Liter Flow Vent Setting Inspired O2 Critical Value POC Glucose Hemoglobin A1c Lactic Acid 6.7 H* Ammonia Total Creatine Kinase CK-MB (CK-2) CK-MB (CK-2) % C-Reactive Protein Triglycerides Cholesterol LDL Cholesterol, Calc HDL Cholesterol Cholesterol/HDL Ratio Vitamin B12 Urine Color Yellow Urine Clarity Clear Urine pH 5.0 Ur Specific [place] 1.015 Urine Protein 30 H Urine Glucose (UA) Negative Urine Ketones Negative Urine Occult Blood Negative Urine Nitrate Negative Urine Bilirubin Negative Urine Urobilinogen Less than 2 Ur Leukocyte Esterase Trace H Urine RBC Less than 1 Urine WBC 4 Ur Squamous Epith Cells <1 Urine Bacteria Occasional H Hyaline Casts 15 Urine Mucus Few H Micro UA Comment Cath-culture ind Ur Microscopic Review Not Reportable Urine Culture Comments Cath-cult indicated Urine Opiates Screen Neg Ur Barbiturates Screen Neg Phenytoin Ur Amphetamines Screen Neg U Benzodiazepines Scrn Neg Urine Cocaine Screen Neg U Cannabinoids Screen Neg 08/09/18 08/09/18 08/09/18 13:06 15:15 15:15 ESR Puncture Site Left femoral Patient Temperature 98.6 O2 Saturation 94 ABG pH 7.47 H ABG pCO2 30 L ABG pO2 68 ABG HCO3 22 ABG O2 Content 17.1 ABG Base Excess -1.6 ABG Methemoglobin 0.0 [place]on Test Hemoglobin 13.0 Carboxyhemoglobin 1.7 O2 Delivery Device Nasal cannula Liter Flow 3.00 Vent Setting Inspired O2 32 Critical Value No POC Glucose Hemoglobin A1c Lactic Acid Ammonia 41 H Total Creatine Kinase 5098 H CK-MB (CK-2) 12.2 H CK-MB (CK-2) % 0.2 C-Reactive Protein Triglycerides Cholesterol LDL Cholesterol, Calc HDL Cholesterol Cholesterol/HDL Ratio Vitamin B12 Urine Color Urine Clarity Urine pH Ur Specific [place] Urine Protein Urine Glucose (UA) Urine Ketones Urine Occult Blood Urine Nitrate Urine Bilirubin Urine Urobilinogen Ur Leukocyte Esterase Urine RBC Urine WBC Ur Squamous Epith Cells Urine Bacteria Hyaline Casts Urine Mucus Micro UA Comment Ur Microscopic Review Urine Culture Comments Urine Opiates Screen Ur Barbiturates Screen Phenytoin Ur Amphetamines Screen U Benzodiazepines Scrn Urine Cocaine Screen U Cannabinoids Screen 08/09/18 08/10/18 08/10/18 18:04 01:56 03:29 ESR Puncture Site Right radial Patient Temperature 98.6 O2 Saturation 95 ABG pH 7.52 H* ABG pCO2 35 L ABG pO2 86 ABG HCO3 28 H ABG O2 Content 18.2 ABG Base Excess 4.7 H ABG Methemoglobin 1.3 [place]on Test Present Hemoglobin 13.6 Carboxyhemoglobin 1.2 O2 Delivery Device Ventilator Liter Flow Vent Setting Prvc/ac Inspired O2 50 Critical Value Yes POC Glucose 130 H Hemoglobin A1c Lactic Acid Ammonia Total Creatine Kinase 6895 H CK-MB (CK-2) 4.8 H CK-MB (CK-2) % 0.1 C-Reactive Protein Triglycerides 116 Cholesterol 203 H LDL Cholesterol, Calc 49 HDL Cholesterol 131.0 H Cholesterol/HDL Ratio 1.54 Vitamin B12 Urine Color Urine Clarity Urine pH Ur Specific [place] Urine Protein Urine Glucose (UA) Urine Ketones Urine Occult Blood Urine Nitrate Urine Bilirubin Urine Urobilinogen Ur Leukocyte Esterase Urine RBC Urine WBC Ur Squamous Epith Cells Urine Bacteria Hyaline Casts Urine Mucus Micro UA Comment Ur Microscopic Review Urine Culture Comments Urine Opiates Screen Ur Barbiturates Screen Phenytoin Ur Amphetamines Screen U Benzodiazepines Scrn Urine Cocaine Screen U Cannabinoids Screen 08/10/18 08/10/18 05:07 08:31 ESR Puncture Site Patient Temperature O2 Saturation ABG pH ABG pCO2 ABG pO2 ABG HCO3 ABG O2 Content ABG Base Excess ABG Methemoglobin [place]on Test Hemoglobin Carboxyhemoglobin O2 Delivery Device Liter Flow Vent Setting Inspired O2 Critical Value POC Glucose 174 H 145 H Hemoglobin A1c Lactic Acid Ammonia Total Creatine Kinase CK-MB (CK-2) CK-MB (CK-2) % C-Reactive Protein Triglycerides Cholesterol LDL Cholesterol, Calc HDL Cholesterol Cholesterol/HDL Ratio Vitamin B12 Urine Color Urine Clarity Urine pH Ur Specific [place] Urine Protein Urine Glucose (UA) Urine Ketones Urine Occult Blood Urine Nitrate Urine Bilirubin Urine Urobilinogen Ur Leukocyte Esterase Urine RBC Urine WBC Ur Squamous Epith Cells Urine Bacteria Hyaline Casts Urine Mucus Micro UA Comment Ur Microscopic Review Urine Culture Comments Urine Opiates Screen Ur Barbiturates Screen Phenytoin Ur Amphetamines Screen U Benzodiazepines Scrn Urine Cocaine Screen U Cannabinoids Screen Review/Management - Diagnosis (1) Seizure Code(s): R56.9 - Unspecified convulsions Status: Acute Current Visit: Yes (2) Hypertensive urgency Code(s): I16.0 - Hypertensive urgency Status: Acute Current Visit: Yes (3) Alcohol intoxication Code(s): F10.929 - Alcohol use, unspecified with intoxication, unspecified Status: Acute Current Visit: Yes - Review/Management Plan: Severely hypertensive individual with reduced responsiveness and appeared to have seizure activity with elevated ethanol level ? PRES ?toxic-metabolic ? Serotonin syndrome +fever; check csf He may have had a stroke followed by post stroke seizures or seizure activity may be related to illicit drug? Recommendation bp control check csf uds-specialized test iv acyclovir for now MRI brain-no acute lesion SCDs Seizure fall precautions Watch for ethanol withdrawal No driving, operating any heavy machinery or dangerous machinery, swimming alone for at least 6 months of being seizure, spell free.
--- NOTE | 2018-08-10 12:42 | P.PNNS ---
Subjective Interval history: Intubated overnight Physical Exam Vital signs: Vital Signs 08/09/18 13:28 08/09/18 15:40 08/09/18 15:48 Temperature 98.5 F Pulse Rate 74 74 Respiratory Rate 36 H 36 H Blood Pressure 147/85 H 154/104 H 160/105 H Pulse Oximetry 94 L 94 L 08/09/18 15:49 08/09/18 16:00 08/09/18 16:12 Temperature 98.8 F Pulse Rate 75 76 77 Respiratory Rate 36 H 31 H 34 H Blood Pressure 159/101 H 181/110 H 172/101 H Pulse Oximetry 92 L 94 L 93 L 08/09/18 16:29 08/09/18 16:42 08/09/18 17:00 Temperature Pulse Rate 76 74 Respiratory Rate 22 31 H 28 H Blood Pressure 132/75 Pulse Oximetry 93 L 94 L 08/09/18 17:12 08/09/18 17:45 08/09/18 18:00 Temperature Pulse Rate 74 76 77 Respiratory Rate 27 H 35 H 37 H Blood Pressure 136/80 145/88 H 131/72 Pulse Oximetry 94 L 93 L 91 L 08/09/18 18:30 08/09/18 18:45 08/09/18 19:00 Temperature Pulse Rate 87 79 78 Respiratory Rate 62 H 46 H 47 H Blood Pressure 161/66 H 166/67 H 121/56 L Pulse Oximetry 88 L 92 L 91 L 08/09/18 19:15 08/09/18 19:30 08/09/18 19:45 Temperature Pulse Rate 79 80 80 Respiratory Rate 41 H 44 H 41 H Blood Pressure 125/69 124/69 128/65 Pulse Oximetry 91 L 92 L 91 L 08/09/18 20:00 08/09/18 20:15 08/09/18 20:25 Temperature 98.4 F Pulse Rate 80 81 Respiratory Rate 38 H 40 H Blood Pressure 128/71 136/68 Pulse Oximetry 93 L 93 L 92 L 08/09/18 20:30 08/09/18 20:45 08/09/18 21:00 Temperature Pulse Rate 82 82 82 Respiratory Rate 41 H 38 H 38 H Blood Pressure 135/70 144/79 H 151/70 H Pulse Oximetry 92 L 92 L 93 L 08/09/18 21:15 08/09/18 21:30 08/09/18 21:45 Temperature Pulse Rate 82 83 81 Respiratory Rate 39 H 37 H 45 H Blood Pressure 145/66 H 144/70 H 141/66 H Pulse Oximetry 94 L 93 L 93 L 08/09/18 22:00 08/09/18 22:15 08/09/18 22:30 Temperature Pulse Rate 81 81 81 Respiratory Rate 39 H 47 H 40 H Blood Pressure 145/65 H 149/70 H 153/74 H Pulse Oximetry 93 L 94 L 94 L 08/09/18 22:45 08/09/18 23:00 08/09/18 23:15 Temperature Pulse Rate 81 82 84 Respiratory Rate 36 H 39 H 41 H Blood Pressure 149/70 H 152/77 H 156/67 H Pulse Oximetry 94 L 94 L 89 L 08/09/18 23:30 08/09/18 23:45 08/10/18 00:00 Temperature 99.1 F Pulse Rate 83 83 86 Respiratory Rate 40 H 47 H 45 H Blood Pressure 157/72 H 145/73 H 149/68 H Pulse Oximetry 88 L 87 L 88 L 08/10/18 00:15 08/10/18 00:30 08/10/18 01:00 Temperature Pulse Rate 88 91 H Respiratory Rate 45 H 51 H 18 Blood Pressure 160/74 H 166/79 H Pulse Oximetry 83 L 87 L 94 L 08/10/18 03:50 08/10/18 03:55 08/10/18 04:00 Temperature 99.7 F H Pulse Rate 76 76 Respiratory Rate 24 23 Blood Pressure 139/70 138/69 145/74 H Pulse Oximetry 99 99 08/10/18 04:05 08/10/18 04:10 08/10/18 04:15 Temperature Pulse Rate 76 76 76 Respiratory Rate 23 24 23 Blood Pressure 139/76 144/79 H 144/81 H Pulse Oximetry 99 99 99 08/10/18 04:20 08/10/18 04:25 08/10/18 04:30 Temperature Pulse Rate 76 76 76 Respiratory Rate 24 24 22 Blood Pressure 144/77 H 146/78 H 145/77 H Pulse Oximetry 99 99 99 08/10/18 04:35 08/10/18 04:40 08/10/18 04:45 Temperature Pulse Rate 76 76 76 Respiratory Rate 22 24 23 Blood Pressure 143/81 H 144/79 H 143/80 H Pulse Oximetry 99 99 99 08/10/18 04:46 08/10/18 04:50 08/10/18 04:55 Temperature Pulse Rate 76 76 Respiratory Rate 23 23 23 Blood Pressure 144/82 H 143/80 H Pulse Oximetry 99 99 99 08/10/18 05:00 08/10/18 05:05 08/10/18 05:10 Temperature Pulse Rate 76 76 76 Respiratory Rate 23 24 25 H Blood Pressure 144/80 H 145/81 H 140/81 Pulse Oximetry 99 99 99 08/10/18 05:15 08/10/18 05:20 08/10/18 05:25 Temperature Pulse Rate 75 75 75 Respiratory Rate 23 22 24 Blood Pressure 144/80 H 141/79 H 139/80 Pulse Oximetry 99 99 99 08/10/18 05:30 08/10/18 05:35 08/10/18 05:40 Temperature Pulse Rate 75 75 76 Respiratory Rate 24 24 27 H Blood Pressure 137/78 140/84 149/89 H Pulse Oximetry 99 99 99 08/10/18 05:45 08/10/18 06:00 08/10/18 06:05 Temperature Pulse Rate 76 76 76 Respiratory Rate 24 26 H 24 Blood Pressure 147/88 H 141/81 H Pulse Oximetry 99 99 99 08/10/18 06:35 08/10/18 07:00 08/10/18 07:05 Temperature Pulse Rate 76 76 76 Respiratory Rate 24 24 23 Blood Pressure 135/77 135/78 Pulse Oximetry 99 99 99 08/10/18 07:35 08/10/18 08:00 08/10/18 08:05 Temperature 100.8 F H Pulse Rate 77 76 76 Respiratory Rate 25 H 27 H 26 H Blood Pressure 142/82 H 142/84 H Pulse Oximetry 99 99 99 08/10/18 09:11 Temperature Pulse Rate Respiratory Rate 23 Blood Pressure Pulse Oximetry 99 Intake & Output 08/09/18 08/10/18 08/10/18 18:59 06:59 18:59 Intake Total 655 / 655 1414 / 1414 264 / 264 Output Total 1350 / 1350 Balance 655 / 655 64 / 64 264 / 264 Weight 87.8 kg 89.6 kg Intake: IV 655 / 655 1414 / 1414 264 / 264 KCl Inj 10 MEQ In 1/2 Normal 305 / 305 Saline Inj 1,000 ML @ 42 mls/hr IV.CONT .[id number] [facility] Rx#: [id number] Diprivan 1000 mg/100 ml Inj 1, 100 / 100 000 mg In 100 ml @ 5 MCG/KG/MIN 2.634 mls/hr IV.CONT TITRATE PRN Rx#:[id number] NS Inj 1,000 ML @ 70 mls/hr IV. 70 / 70 CONT .[id number] [facility] Rx#:[id number] Sodium Bicarbonate 8.4% Inj 150 1000 / 1000 MEQ In D5W Inj 850 ML @ 125 mls/hr IV.CONT .Q8H [facility] Rx#: [id number] Cardene Inj 25 MG In NS Inj 240 250 / 250 ML @ 5 MG/HR 50 mls/hr IV.CONT TITRATE PRN Rx#:[id number] Cerebyx Inj 200 MGPE In NS Inj 54 / 54 54 / 54 50 ML @ 216 mls/hr IV.SIG Q12HR [facility] Rx#:[id number] Cerebyx Inj 1,000 MGPE In NS 70 / 70 Inj 50 ML @ 280 mls/hr IV.SIG ONCE ONE Rx#:[id number] Vimpat Inj 100 MG In NS Inj 100 110 / 110 110 / 110 110 / 110 ML @ 110 mls/hr IV.SIG Q12HR [facility] Rx#:[id number] Keppra 1000 mg/100 mL Premix 100 / 100 100 ML @ 400 mls/hr IV.SIG ONCE ONE Rx#:[id number] Oral 0 / 0 0 / 0 Output: Urine Amount (Catheter) 1350 / 1350 Indwelling Urethral Catheter 1350 / 1350 Other: # Bowel Movements 0 Weight On Admission 90.7 kg Narrative: intubated, not following, no involuntary movements regards examiner in a fearful manner, moves all extremities - Urinary Catheter Management Indwelling Urethral Catheter Cath placed during this visit: yes Reason for continuing: Hourly intake/output Insertion date: 08/09/18 Insertion time: 18:30 Assessment and Plan - Plan 58yoM with encephlopathy, C6 anterior fracture, stable. Plan: Lorain J collar for the fracture x 6 weeks. Re: the encephalopathy, it is unclear to me the etiology-- defer to Neurology-- ?anoxic vs. carbon monoxide poisoning (found in garage) vs. substance use ( but utox negative)-- EtoH positive agree with admission to [facility] and further workup -- there is no traumatic hemorrhage agree with EEG and MRI Brain when able 08/10/18 MRI C-spine shows the fracture is acute-- maintain Lorain J x 6 weeks all times MRI Brain-- no obvious abnormality-- likely metabolic etiology-- defer remainder workup to Neurology Neurosurgery will sign off
[2018-08-10] MEDS: Famotidine 20 MG Tablet NG/OG SCH ×2 (12:57→20:13)
[2018-08-10] MEDS: Heparin - SQ 10,000 UNITS/ML Vial SQ SCH (12:57)
[2018-08-10 14:11] LABS: Albumin 3.8 g/dL (3.4-5.0); Anion Gap 15 meq/L (5-15); Aspartate Aminotransferase 147 U/L (15-37); Blood Urea Nitrogen 22 mg/dL (7-18); Calcium 8.7 mg/dL (8.5-10.1); Carbon Dioxide 23.9 meq/L (21.0-32.0); Chloride 104 meq/L (98-107); Glomerular Filtration Rate 57 mL/min (>89); Glucose,Random 166 mg/dL (74-106); Potassium 3.5 meq/L (3.5-5.1); Sodium 143 meq/L (136-145)
[2018-08-10 14:12] LABS: Alanine Aminotransferase 56 U/L (12-78)
[2018-08-10 14:14] LABS: Alkaline Phosphatase 120 U/L (45-117); Total Protein 6.7 g/dL (6.4-8.2)
[2018-08-10] MEDS: Acyclovir Inj 700 MG in Sodium Chlor 0.9% Inj 100 ML IV.SIG SCH ×2 (15:33→21:55)
[2018-08-10] MEDS ORDERED: Sod Chloride 0.9% Inj 1,000 ML IV.SIG ONE (18:00)
[2018-08-11] MEDS: Insulin NovoLOG Aspart Correctional Sugar Inj SQ SCH ×2 (00:08→05:45)
--- NOTE | 2018-08-11 01:14 | ECG ---
Date Performed: 08/09/2018 Time Performed: 09:24:42 PTAGE: 58 years EKG: SINUS TACHYCARDIA WITH FREQUENT SUPRAVENTRICULAR PREMATURE COMPLEXES MODERATE INTRAVENTRICU LAR CONDUCTION DELAY ABNORMAL RHYTHM ECG INTERPRETATION BASED ON A DEFAULT AGE OF 41 YEARS NO PREVIOUS TRACING DOCTOR: Jai Rucker Interpretating Date/Time 08/11/2018 01:13:48
[2018-08-11] MEDS: Oral Hygiene Kit OROPHARYNG SCH ×3 (04:16→15:15)
[2018-08-11] MEDS: Sodium Bicarbonate 8.4% Inj 150 MEQ in Dextrose 5% in Water Inj 850 ML IV.CONT SCH ×6 (04:16→21:24)
[2018-08-11] MEDS: Propofol 1000 mg/100 ml Inj 1,000 MG/100 ML BOTTLE IV.CONT PRN ×5 (05:25→23:46)
[2018-08-11] MEDS: Acyclovir Inj 700 MG in Sodium Chlor 0.9% Inj 100 ML IV.SIG SCH ×3 (05:25→21:23)
[2018-08-11 06:55] LABS: Baso % (Auto) 0.4 % (0.0-2.0); Eos % (Auto) 0.2 % (0.0-4.0); Hematocrit 32.7 % (39.0-51.0); Hemoglobin 11.3 gm/dL (13.0-17.0); Lymph # (Auto) 0.7 th/mm3 (1.0-4.8); Lymph % (Auto) 12.1 % (9.0-44.0); Mean Corpuscular HGB Conc 34.4 % (32.0-36.0); Mean Corpuscular Hemoglobin 32.3 pg (27.0-34.0); Mean Corpuscular Volume 93.8 fL (80.0-100.0); Mean Platelet Volume 8.3 fL (7.0-11.0); Mono # (Auto) 0.1 th/mm3 (0.0-0.9); Mono % (Auto) 2.7 % (0.0-8.0); Neut # (Auto) 4.7 th/mm3 (1.8-7.7); Neut % (Auto) 84.6 % (16.0-70.0); Platelet Count 116 th/mm3 (150-450); Red Blood Count 3.48 mil/mm3 (4.50-5.90); White Blood Count 5.5 th/mm3 (4.0-11.0)
[2018-08-11 07:44] LABS: Alanine Aminotransferase 162 U/L (12-78); Albumin 2.9 g/dL (3.4-5.0); Alkaline Phosphatase 100 U/L (45-117); Anion Gap 7 meq/L (5-15); Aspartate Aminotransferase 438 U/L (15-37); Blood Urea Nitrogen 18 mg/dL (7-18); Calcium 7.3 mg/dL (8.5-10.1); Carbon Dioxide 30.8 meq/L (21.0-32.0); Chloride 104 meq/L (98-107); Creatine Kinase 3477 U/L (39-308); Glomerular Filtration Rate 77 mL/min (>89); Glucose,Random 89 mg/dL (74-106); Sodium 142 meq/L (136-145); Total Protein 5.6 g/dL (6.4-8.2)
[2018-08-11 07:54] LABS: Hemoglobin A1c 5.6 % (4.3-6.0)
[2018-08-11] MEDS: Chlorhexidine 0.12% Oral Kit 15 ML UDC OROPHARYNG SCH ×2 (08:10→20:02)
[2018-08-11] MEDS: Lacosamide Inj 100 MG in Sodium Chlor 0.9% Inj 100 ML IV.SIG SCH ×2 (08:14→21:24)
[2018-08-11] MEDS: Famotidine 20 MG Tablet NG/OG SCH ×2 (08:14→20:02)
--- NOTE | 2018-08-11 08:53 | P.PNCC ---
Subjective Subjective Remarks/Hospital Course: 08/09: 58-year-old male who was found down in his friend's garage this morning. He has a history of alcohol abuse. He recently sold his house and was staying at a friend's home. Reportedly he was due to fly later today. Patient was brought to the ER by EMS and was noted to have involuntary movements with jerking movements involving upper and lower extremities as well as his head. He received Ativan 3 mg IV and was loaded with Keppra. Initially stroke alert was called. Head CT was negative for any bleed however there was question of C6 fracture. Neurology and neurosurgery were consulted. Patient was loaded with IV Cerebyx and Vimpat by neurology. He had a [place] J collar placed after placing hard cervical collar by neurosurgery. When I evaluated the patient in the ER he was still having involuntary movements which appeared to be episodic with occasional twitchings on his face and nystagmus. This did not appear to be generalized tonic-clonic convulsions however appeared more like an extrapyramidal reaction. I ordered a stat EEG. Patient moving around too much to obtain MRI at this time. His urine tox screen was negative. He was positive for alcohol. Patient nonverbal. His involuntary movements get exaggerated on stimulation. He was reportedly completely normal yesterday. 08/10: Patient had an episode of emesis last night followed by labored breathing. He continued to have involuntary movements. He was intubated and placed on mechanical ventilation. Currently sedated with propofol, orally intubated on mechanical ventilation. Awaiting MRI brain and C-spine. EEG done yesterday did not show any seizure activity. 08/11: Sedated, orally intubated on mechanical ventilation. MRI brain unremarkable. MRI C-spine with hairline C6 fracture with no displacement. Objective Vital Signs / I&O: Vital Signs 08/10/18 09:00 08/10/18 09:05 08/10/18 09:11 Temperature Pulse Rate 76 75 Respiratory Rate 26 H 23 23 Blood Pressure 135/84 Pulse Oximetry 99 99 99 08/10/18 09:35 08/10/18 10:00 08/10/18 11:01 Temperature Pulse Rate 75 77 Respiratory Rate 25 H 34 H Blood Pressure 135/79 130/84 Pulse Oximetry 100 100 99 08/10/18 11:16 08/10/18 11:38 08/10/18 12:00 Temperature 99.8 F H Pulse Rate 70 69 69 Respiratory Rate 21 21 20 Blood Pressure 127/77 129/79 131/79 Pulse Oximetry 100 100 100 08/10/18 12:08 08/10/18 12:38 08/10/18 12:58 Temperature Pulse Rate 69 68 Respiratory Rate 21 22 22 Blood Pressure 131/79 130/78 Pulse Oximetry 100 100 100 08/10/18 13:00 08/10/18 13:08 08/10/18 13:38 Temperature Pulse Rate 69 69 70 Respiratory Rate 20 21 21 Blood Pressure 135/81 138/82 Pulse Oximetry 100 100 100 08/10/18 14:00 08/10/18 14:08 08/10/18 14:38 Temperature Pulse Rate 70 71 70 Respiratory Rate 22 21 21 Blood Pressure 139/84 141/84 H Pulse Oximetry 100 100 100 08/10/18 15:00 08/10/18 15:08 08/10/18 15:38 Temperature 98.8 F Pulse Rate 69 70 71 Respiratory Rate 20 20 21 Blood Pressure 138/88 139/83 138/88 Pulse Oximetry 100 100 100 08/10/18 16:00 08/10/18 16:08 08/10/18 16:38 Temperature 98.8 F Pulse Rate 72 73 75 Respiratory Rate 21 20 19 Blood Pressure 141/82 H 146/79 H Pulse Oximetry 100 100 100 08/10/18 17:00 08/10/18 17:08 08/10/18 17:38 Temperature Pulse Rate 75 80 73 Respiratory Rate 19 19 22 Blood Pressure 158/87 H 149/90 H Pulse Oximetry 100 100 100 08/10/18 18:00 08/10/18 18:08 08/10/18 18:38 Temperature Pulse Rate 73 73 75 Respiratory Rate 22 22 21 Blood Pressure 156/94 H 155/96 H Pulse Oximetry 100 100 100 08/10/18 19:00 08/10/18 19:08 08/10/18 19:38 Temperature Pulse Rate 74 75 74 Respiratory Rate 22 22 21 Blood Pressure 158/96 H 158/95 H Pulse Oximetry 100 100 100 08/10/18 20:00 08/10/18 20:08 08/10/18 20:25 Temperature Pulse Rate 75 75 Respiratory Rate 20 21 24 Blood Pressure 162/101 H Pulse Oximetry 100 100 100 08/10/18 20:38 08/10/18 21:00 08/10/18 21:08 Temperature 98.2 F Pulse Rate 78 75 74 Respiratory Rate 23 18 19 Blood Pressure 172/105 H 154/95 H Pulse Oximetry 100 100 100 08/10/18 21:38 08/10/18 22:00 08/10/18 22:08 Temperature Pulse Rate 74 74 75 Respiratory Rate 19 19 19 Blood Pressure 152/91 H 153/93 H Pulse Oximetry 100 100 100 08/10/18 22:38 08/10/18 23:00 08/10/18 23:08 Temperature Pulse Rate 74 75 75 Respiratory Rate 19 19 18 Blood Pressure 149/84 H 149/83 H Pulse Oximetry 100 100 100 08/10/18 23:38 08/11/18 00:00 08/11/18 00:08 Temperature 99.3 F Pulse Rate 75 76 78 Respiratory Rate 19 21 23 Blood Pressure 160/93 H 172/101 H Pulse Oximetry 100 100 100 08/11/18 00:16 08/11/18 00:38 08/11/18 01:00 Temperature Pulse Rate 78 77 Respiratory Rate 22 21 20 Blood Pressure 167/100 H Pulse Oximetry 100 100 100 08/11/18 01:08 08/11/18 01:38 08/11/18 02:00 Temperature Pulse Rate 76 77 77 Respiratory Rate 20 19 20 Blood Pressure 162/95 H 154/89 H Pulse Oximetry 100 100 100 08/11/18 02:08 08/11/18 02:38 08/11/18 03:00 Temperature Pulse Rate 78 78 81 Respiratory Rate 20 21 26 H Blood Pressure 165/104 H 164/95 H Pulse Oximetry 100 100 100 08/11/18 03:08 08/11/18 03:38 08/11/18 04:00 Temperature Pulse Rate 78 77 79 Respiratory Rate 22 21 24 Blood Pressure 165/94 H 165/94 H Pulse Oximetry 100 100 100 08/11/18 04:08 08/11/18 04:38 08/11/18 05:00 Temperature Pulse Rate 78 78 81 Respiratory Rate 22 23 25 H Blood Pressure 167/101 H 170/96 H Pulse Oximetry 100 100 100 08/11/18 05:08 08/11/18 05:38 08/11/18 06:00 Temperature 99.3 F Pulse Rate 81 78 80 Respiratory Rate 25 H 21 21 Blood Pressure 177/105 H 163/89 H Pulse Oximetry 100 100 100 08/11/18 06:08 08/11/18 06:38 08/11/18 07:00 Temperature Pulse Rate 80 80 81 Respiratory Rate 20 20 20 Blood Pressure 163/87 H 166/89 H Pulse Oximetry 100 100 100 08/11/18 07:08 08/11/18 07:38 08/11/18 07:50 Temperature Pulse Rate 79 77 84 Respiratory Rate 20 21 Blood Pressure 171/92 H 170/93 H Pulse Oximetry 100 100 08/11/18 07:51 08/11/18 08:00 08/11/18 08:08 Temperature 99.8 F H Pulse Rate 87 83 Respiratory Rate 26 H 25 H Blood Pressure 179/104 H Pulse Oximetry 100 100 100 Intake & Output 08/10/18 08/11/18 08/11/18 18:59 06:59 18:59 Intake Total 2158 / 2158 2077 Output Total 450 / 450 725 / 725 Balance 1708 / 1708 1353 / 1353 Weight 94.7 kg Intake: IV 1977 Diprivan 1000 mg/100 ml Inj 1, 200 / 200 300 / 300 000 mg In 100 ml @ 5 MCG/KG/MIN 2.634 mls/hr IV.CONT TITRATE PRN Rx#:[id number] Sodium Bicarbonate 8.4% Inj 150 500 / 500 1450 / 1450 MEQ In D5W Inj 850 ML @ 125 mls/hr IV.CONT .Q8H SATYA Rx#: [id number] Zovirax Inj 700 MG In NS Inj 114 / 114 228 / 228 100 ML @ 114 mls/hr IV.SIG Q8H SATYA Rx#:[id number] Cerebyx Inj 200 MGPE In NS Inj 54 / 54 50 ML @ 216 mls/hr IV.SIG Q12HR SATYA Rx#:[id number] Vimpat Inj 100 MG In NS Inj 100 110 / 110 100 / 100 ML @ 110 mls/hr IV.SIG Q12HR SATYA Rx#:[id number] NS Inj 1,000 ML @ Wide Open IV. 1000 / 1000 SIG BOLUS ONE Rx#:[id number] Tube Irrigant 180 / 180 Output: Urine Amount (Catheter) 450 / 450 725 / 725 Indwelling Urethral Catheter 450 / 450 725 / 725 Result Diagrams: 08/11/18 05:53 08/11/18 05:53 Objective Remarks: HEENT/ Neuro: Sedated, orally intubated, Pallor present, no icterus, tongue/ mucosa moist Neck: No JVD Chest/Pulm: on mech vent, good air entry bilaterally, no wheezing or crackles CVS: S1-S2 regular, no murmur GI/abdomen: soft, nontender, bowel sounds sluggish Extremities: warm bilaterally, no edema Assessment and Plan - Assessment and Plan Plan: 58-year-old male with: Encephalopathy Involuntary movements suspicious for seizures versus extrapyramidal reaction versus stroke versus anoxic injury C6 fracture Question of alcohol abuse Rhabdomyolysis Acute respiratory failure on mechanical ventilation Plan: Neuro: Sedation with propofol, daily sedation vacation. Follow neuro checks. Neurology neurosurgery consulted. EEG done in ER did not reveal any seizure activity with ongoing involuntary movements. MRI brain unremarkable, MRI C-spine nondisplaced C6 fracture, continue [place] J collar for 6 weeks per neurosurgery. On ASA. Need to clarify home medications. Neurology started acyclovir IV while awaiting lumbar puncture Cardiovascular: Initially was hypertensive on arrival. Nicardipine gtt. if needed. Labetalol as needed. Maintenance IV fluids ordered. Pulmonary: Intubated for airway protection and placed on mechanical ventilation following episode of emesis with question of aspiration on 08/10 AM. vent bundle, bronchodilators as needed. Tolerated CPAP trial and ordered extubation on 08/11. GI/liver: Obtain swallow eval following extubation to decide regarding advancing diet Renal/: IV hydration, strict intake output, monitor and replete electrolytes, follow BUN/creatinine. On bicarb drip in view of rhabdomyolysis. Follow CPK. ID: No antibiotics at this time. Watch for fever/leukocytosis Endocrine: Watch for hyperglycemia, SSI for glycemic control if needed Heme: Follow CBC Prophylaxis: SCDs. heparin 5000 units subcutaneously every 8 hourly, Pepcid for GI prophylaxis Discussed with neurosurgery, discussed with ICU nurse.
[2018-08-11] MEDS ORDERED: Sodium Phosphate Inj 30 MMOL in Sodium Chlor 0.9% Inj 250 ML IV.SIG PRN (10:22)
[2018-08-11] MEDS ORDERED: Magnesium Sulfate Inj 4 GM in Sodium Chlor 0.9% Inj 92 ML IV.SIG PRN (10:22)
[2018-08-11] MEDS ORDERED: Potassium Chlor 40 mEq Premix 40 MEQ/100 ML PIGGYBACK IV.SIG PRN ×2 (10:22)
[2018-08-11] MEDS ORDERED: Potassium Chlor 20 mEq Premix 20 MEQ/100 ML PIGGYBACK IV.SIG PRN (10:22)
[2018-08-11] MEDS ORDERED: Potassium Phosphate Inj 30 MMOL in Sodium Chlor 0.9% Inj 250 ML IV.SIG PRN (10:22)
[2018-08-11] MEDS ORDERED: Magnesium Oxide 400 MG Tablet PO PRN (10:22)
[2018-08-11] MEDS ORDERED: Potassium Chloride 25 MEQ Effervescent Tablet PO PRN (10:22)
[2018-08-11] MEDS ORDERED: Potassium Phosphate 500 MG Soluble Tablet PO PRN ×2 (10:22)
[2018-08-11] MEDS ORDERED: Magnesium Sulfate Inj 2 GM in Sodium Chlor 0.9% Inj 96 ML IV.SIG PRN (10:22)
[2018-08-11] MEDS: Labetalol HCl Inj 100 MG/20 ML Vial IV.PUSH PRN ×2 (10:49→20:20)
[2018-08-11] MEDS: Potassium Chlor 20 mEq Premix 20 MEQ/100 ML PIGGYBACK IV.SIG PRN ×4 (10:49→18:32)
--- NOTE | 2018-08-11 11:28 | P.PNNEU ---
Subjective Subjective Comments: No acute events. pt states he drinks beers sometimes. denies illicit drug use. Active Medications: Active Medications Aspirin (Aspirin Supp) 300 mg RECTAL DAILY [facility] Last Admin: 08/10/18 08:01 Dose: 300 mg Chlorhexidine Gluconate (Peridex 0.12% Oral Kit) 15 ml OROPHARYNG BID@0800, 2000 [facility] Last Admin: 08/11/18 08:10 Dose: 15 ml Dextrose (D50w Vial) 50 ml IV.PUSH UNSCH PRN PRN Reason: PER HYPOGLYCEMIA PROTOCOL Famotidine (Pepcid) 20 mg NG/OG BID [facility] Last Admin: 08/11/18 08:14 Dose: 20 mg Glucagon (Glucagon Inj) 1 mg OTHER UNSCH PRN PRN Reason: for Hypoglycemia Protocol Heparin Sodium (Porcine) (Heparin Inj) 5,000 units SQ Q8H [facility] Last Admin: 08/10/18 12:57 Dose: Not Given Nicardipine HCl 25 mg/ Sodium (Chloride) 250 mls @ 50 mls/hr IV.CONT TITRATE PRN; Protocol PRN Reason: Per Protocol Last Titration: 08/11/18 10:44 Dose: Infused Lacosamide 100 mg/ Sodium (Chloride) 110 mls @ 110 mls/hr IV.SIG Q12HR [facility] Last Infusion: 08/11/18 10:44 Dose: Infused Sodium Bicarbonate 150 meq/ (Dextrose) 1,000 mls @ 125 mls/hr IV.CONT .Q8H [facility] Last Admin: 08/11/18 04:16 Dose: 125 mls/hr Propofol (Diprivan 1000 Mg/100 Ml Inj) 1,000 mg in 100 mls @ 2.634 mls/hr IV.CONT TITRATE PRN; Protocol PRN Reason: Per Protocol Last Titration: 08/11/18 08:14 Dose: Infused Acyclovir Sodium 700 mg/ (Sodium Chloride) 114 mls @ 114 mls/hr IV.SIG Q8H [facility] Last Infusion: 08/11/18 06:30 Dose: Infused Magnesium Sulfate 4 gm/ Sodium (Chloride) 100 mls @ 50 mls/hr IV.SIG UNSCH PRN PRN Reason: For Magnesium 0.9 - 1.1 mg/dL Magnesium Sulfate 2 gm/ Sodium (Chloride) 100 mls @ 50 mls/hr IV.SIG UNSCH PRN PRN Reason: For Magnesium 1.2 - 1.6 mg/dL Potassium Chloride (Kcl 20 Meq Premix Inj) 20 meq in 100 mls @ 50 mls/hr IV.SIG Q2H PRN PRN Reason: For Potassium 3.3 - 3.5 mEq/L Potassium Chloride (Kcl 40 Meq Premix Inj) 40 meq in 100 mls @ 25 mls/hr IV.SIG UNSCH PRN PRN Reason: For Potassium 3.3 - 3.5 mEq/L Potassium Chloride (Kcl 20 Meq Premix Inj) 20 meq in 100 mls @ 50 mls/hr IV.SIG Q2H PRN PRN Reason: For Potassium 2.8 - 3.2 mEq/L Last Admin: 08/11/18 10:49 Dose: 50 mls/hr Potassium Phosphate 30 mmol/ (Sodium Chloride) 260 mls @ 42 mls/hr IV.SIG UNSCH PRN PRN Reason: SEE LABEL COMMENTS Sodium Phosphate 30 mmol/ (Sodium Chloride) 260 mls @ 42 mls/hr IV.SIG UNSCH PRN PRN Reason: For Phosphorus < 2.5 mg/dL Potassium Chloride (Kcl 40 Meq Premix Inj) 40 meq in 100 mls @ 50 mls/hr IV.SIG Q2H PRN PRN Reason: For Potassium 2.8 - 3.2 mEq/L Labetalol HCl (Trandate Inj) 20 mg IV.PUSH Q4H PRN PRN Reason: SBP>160, DBP>90 Last Admin: 08/11/18 10:49 Dose: 20 mg Lorazepam (Ativan Inj) 2 mg IV.PUSH Q6H@07,13,19,01 PRN PRN Reason: AGITATION SEIZURE LIKE ACTIV Magnesium Oxide (Mag-Ox) 800 mg PO UNSCH PRN PRN Reason: For Magnesium 1.2 - 1.6 mg/dL Miscellaneous Medication () 1 each OROPHARYNG 0000,0400,1200,1600 SATYA Last Admin: 08/11/18 04:16 Dose: 1 each Ondansetron HCl (Zofran Inj) 4 mg IV.PUSH UNSCH X1 PRN PRN Reason: NAUSEA Stop: 08/13/18 01:04 Potassium Bicarb/Potassium Chloride (K-Lyte Cl Eff) 50 meq PO UNSCH PRN PRN Reason: For Potassium 3.3 - 3.5 mEq/L Potassium Phosphate (K-Phos Original) 2,000 mg PO Q4H PRN PRN Reason: Phosphorus Less Than 2.5 mg/dL Potassium Phosphate (K-Phos Original) 2,000 mg PO UNSCH PRN PRN Reason: SEE LABEL COMMENTS Sodium Chloride (Ns Flush) 2 ml IV.FLUSH BID [facility] Last Admin: 08/11/18 08:10 Dose: 2 ml Sodium Chloride (Ns Flush) 2 ml IV.FLUSH PRN PRN PRN Reason: FLUSH AFTER USING IV ACCESS Thiamine HCl (Thiamine Inj) 100 mg IM DAILY [facility] Last Admin: 08/11/18 08:14 Dose: 100 mg Allergies/Adverse Reactions: Allergies Allergy/AdvReac Type Severity Reaction Status Date / Time No Known Allergies Allergy Verified 08/09/18 09:20 Review of Systems All other systems reviewed negative except as stated in HPI Physical Exam Vital signs: Vital Signs 08/10/18 11:38 08/10/18 12:00 08/10/18 12:08 Temperature 99.8 F H Pulse Rate 69 69 69 Respiratory Rate 21 20 21 Blood Pressure 129/79 131/79 131/79 Pulse Oximetry 100 100 100 08/10/18 12:38 08/10/18 12:58 08/10/18 13:00 Temperature Pulse Rate 68 69 Respiratory Rate 22 22 20 Blood Pressure 130/78 Pulse Oximetry 100 100 100 08/10/18 13:08 08/10/18 13:38 08/10/18 14:00 Temperature Pulse Rate 69 70 70 Respiratory Rate 21 21 22 Blood Pressure 135/81 138/82 Pulse Oximetry 100 100 100 08/10/18 14:08 08/10/18 14:38 08/10/18 15:00 Temperature 98.8 F Pulse Rate 71 70 69 Respiratory Rate 21 21 20 Blood Pressure 139/84 141/84 H 138/88 Pulse Oximetry 100 100 100 08/10/18 15:08 08/10/18 15:38 08/10/18 16:00 Temperature Pulse Rate 70 71 72 Respiratory Rate 20 21 21 Blood Pressure 139/83 138/88 Pulse Oximetry 100 100 100 08/10/18 16:08 08/10/18 16:38 08/10/18 17:00 Temperature 98.8 F Pulse Rate 73 75 75 Respiratory Rate 20 19 19 Blood Pressure 141/82 H 146/79 H Pulse Oximetry 100 100 100 08/10/18 17:08 12/23/18 17:38 08/10/18 18:00 Temperature Pulse Rate 80 73 73 Respiratory Rate 19 22 22 Blood Pressure 158/87 H 149/90 H Pulse Oximetry 100 100 100 08/10/18 18:08 08/10/18 18:38 08/10/18 19:00 Temperature Pulse Rate 73 75 74 Respiratory Rate 22 21 22 Blood Pressure 156/94 H 155/96 H Pulse Oximetry 100 100 100 08/10/18 19:08 08/10/18 19:38 08/10/18 20:00 Temperature Pulse Rate 75 74 75 Respiratory Rate 22 21 20 Blood Pressure 158/96 H 158/95 H Pulse Oximetry 100 100 100 08/10/18 20:08 08/10/18 20:25 08/10/18 20:38 Temperature Pulse Rate 75 78 Respiratory Rate 21 24 23 Blood Pressure 162/101 H 172/105 H Pulse Oximetry 100 100 100 08/10/18 21:00 08/10/18 21:08 08/10/18 21:38 Temperature 98.2 F Pulse Rate 75 74 74 Respiratory Rate 18 19 19 Blood Pressure 154/95 H 152/91 H Pulse Oximetry 100 100 100 08/10/18 22:00 08/10/18 22:08 08/10/18 22:38 Temperature Pulse Rate 74 75 74 Respiratory Rate 19 19 19 Blood Pressure 153/93 H 149/84 H Pulse Oximetry 100 100 100 08/10/18 23:00 08/10/18 23:08 08/10/18 23:38 Temperature Pulse Rate 75 75 75 Respiratory Rate 19 18 19 Blood Pressure 149/83 H 160/93 H Pulse Oximetry 100 100 100 08/11/18 00:00 08/11/18 00:08 08/11/18 00:16 Temperature 99.3 F Pulse Rate 76 78 Respiratory Rate 21 23 22 Blood Pressure 172/101 H Pulse Oximetry 100 100 100 08/11/18 00:38 08/11/18 01:00 08/11/18 01:08 Temperature Pulse Rate 78 77 76 Respiratory Rate 21 20 20 Blood Pressure 167/100 H 162/95 H Pulse Oximetry 100 100 100 08/11/18 01:38 08/11/18 02:00 08/11/18 02:08 Temperature Pulse Rate 77 77 78 Respiratory Rate 19 20 20 Blood Pressure 154/89 H 165/104 H Pulse Oximetry 100 100 100 08/11/18 02:38 08/11/18 03:00 08/11/18 03:08 Temperature Pulse Rate 78 81 78 Respiratory Rate 21 26 H 22 Blood Pressure 164/95 H 165/94 H Pulse Oximetry 100 100 100 08/11/18 03:38 08/11/18 04:00 08/11/18 04:08 Temperature Pulse Rate 77 79 78 Respiratory Rate 21 24 22 Blood Pressure 165/94 H 167/101 H Pulse Oximetry 100 100 100 08/11/18 04:38 08/11/18 05:00 08/11/18 05:08 Temperature 99.3 F Pulse Rate 78 81 81 Respiratory Rate 23 25 H 25 H Blood Pressure 170/96 H 177/105 H Pulse Oximetry 100 100 100 08/11/18 05:38 08/11/18 06:00 08/11/18 06:08 Temperature Pulse Rate 78 80 80 Respiratory Rate 21 21 20 Blood Pressure 163/89 H 163/87 H Pulse Oximetry 100 100 100 08/11/18 06:38 08/11/18 07:00 08/11/18 07:08 Temperature Pulse Rate 80 81 79 Respiratory Rate 20 20 20 Blood Pressure 166/89 H 171/92 H Pulse Oximetry 100 100 100 08/11/18 07:38 08/11/18 07:50 08/11/18 07:51 Temperature Pulse Rate 77 84 Respiratory Rate 21 Blood Pressure 170/93 H Pulse Oximetry 100 100 08/11/18 08:00 08/11/18 08:08 08/11/18 08:38 Temperature 99.8 F H Pulse Rate 87 83 97 H Respiratory Rate 26 H 25 H 0 L Blood Pressure 179/104 H 198/104 H Pulse Oximetry 100 100 99 08/11/18 08:41 08/11/18 08:47 08/11/18 09:00 Temperature Pulse Rate 96 H 90 Respiratory Rate 0 L 0 L Blood Pressure 206/94 H 188/106 H Pulse Oximetry 97 97 99 08/11/18 09:08 08/11/18 09:38 08/11/18 10:00 Temperature Pulse Rate 90 90 93 H Respiratory Rate 24 21 20 Blood Pressure 188/106 H 193/107 H Pulse Oximetry 99 97 96 08/11/18 10:08 08/11/18 10:19 08/11/18 10:22 Temperature Pulse Rate 90 93 H 91 H Respiratory Rate 20 21 20 Blood Pressure 188/113 H 192/136 H 195/115 H Pulse Oximetry 98 97 98 08/11/18 10:31 08/11/18 10:40 Temperature Pulse Rate 91 H Respiratory Rate 20 Blood Pressure 202/117 H Pulse Oximetry 98 Intake & Output 08/10/18 08/11/18 08/11/18 18:59 06:59 18:59 Intake Total 2157 / 2158 2077 400 / 400 Output Total 450 / 450 725 / 725 1200 / 1200 Balance 1708 / 1708 1353 / 1353 -800 / -800 Weight 94.7 kg Intake: IV 1977 400 / 400 Diprivan 1000 mg/100 ml Inj 1, 200 / 200 300 / 300 50 / 50 000 mg In 100 ml @ 5 MCG/KG/MIN 2.634 mls/hr IV.CONT TITRATE PRN Rx#:[id number] Sodium Bicarbonate 8.4% Inj 150 500 / 500 1450 / 1450 MEQ In D5W Inj 850 ML @ 125 mls/hr IV.CONT .Q8H SATYA Rx#: [id number] Cardene Inj 25 MG In NS Inj 240 240 / 240 ML @ 5 MG/HR 50 mls/hr IV.CONT TITRATE PRN Rx#:[id number] Zovirax Inj 700 MG In NS Inj 114 / 114 228 / 228 100 ML @ 114 mls/hr IV.SIG Q8H SATYA Rx#:[id number] Cerebyx Inj 200 MGPE In NS Inj 54 / 54 50 ML @ 216 mls/hr IV.SIG Q12HR SATYA Rx#:[id number] Vimpat Inj 100 MG In NS Inj 100 110 / 110 100 / 100 110 / 110 ML @ 110 mls/hr IV.SIG Q12HR SATYA Rx#:[id number] NS Inj 1,000 ML @ Wide Open IV. 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, moves rest of extremities, mild tremulousness - Constitutional no acute distress - Routine HEENT Exam Head: Present: normocephalic Eye: Present: EOMI - Urinary Catheter Management Indwelling Urethral Catheter Cath placed during this visit: yes, but has since been removed by the nurse Reason for continuing: Hourly intake/output Insertion date: 08/09/18 Insertion time: 18:30 Removal date: 08/11/18 Removal time: 09:50 Objective Laboratory Results - last 24 hr 08/10/18 08/10/18 08/10/18 03:29 03:29 13:13 WBC RBC Hgb Hct MCV MCH MCHC RDW Plt Count MPV Neut % (Auto) Lymph % (Auto) [place] % (Auto) Eos % (Auto) Baso % (Auto) Neut # (Auto) Lymph # (Auto) [place] # (Auto) Eos # (Auto) Baso # (Auto) WBC Differential Differential Comment Sodium 143 Potassium 3.5 Chloride 104 Carbon Dioxide 23.9 Anion Gap 15 BUN 22 H Creatinine 1.29 Estimated GFR 57 L POC Glucose 88 Random Glucose 166 H Hemoglobin A1c 5.6 Calcium 8.7 Calcium Adj for Albumin Total Bilirubin 1.3 H AST 147 H ALT 56 Alkaline Phosphatase 120 H Total Creatine Kinase CK-MB (CK-2) CK-MB (CK-2) % Total Protein 6.7 D Albumin 3.8 08/10/18 08/10/18 08/11/18 17:54 23:53 05:31 WBC RBC Hgb Hct MCV MCH MCHC RDW Plt Count MPV Neut % (Auto) Lymph % (Auto) [place] % (Auto) Eos % (Auto) Baso % (Auto) Neut # (Auto) Lymph # (Auto) [place] # (Auto) Eos # (Auto) Baso # (Auto) WBC Differential Differential Comment Sodium Potassium Chloride Carbon Dioxide Anion Gap BUN Creatinine Estimated GFR POC Glucose 98 83 97 Random Glucose Hemoglobin A1c Calcium Calcium Adj for Albumin Total Bilirubin AST ALT Alkaline Phosphatase Total Creatine Kinase CK-MB (CK-2) CK-MB (CK-2) % Total Protein Albumin 08/11/18 08/11/18 05:53 05:53 WBC 5.5 RBC 3.48 L Hgb 11.3 L D Hct 32.7 L MCV 93.8 MCH 32.3 MCHC 34.4 RDW 14.0 Plt Count 116 L D MPV 8.3 Neut % (Auto) 84.6 H Lymph % (Auto) 12.1 [place] % (Auto) 2.7 Eos % (Auto) 0.2 Baso % (Auto) 0.4 Neut # (Auto) 4.7 Lymph # (Auto) 0.7 L [place] # (Auto) 0.1 Eos # (Auto) 0.0 Baso # (Auto) 0.0 WBC Differential . Differential Comment Auto diff final Sodium 142 Potassium 3.0 L Chloride 104 Carbon Dioxide 30.8 Anion Gap 7 BUN 18 Creatinine 1.00 Estimated GFR 77 L POC Glucose Random Glucose 89 Hemoglobin A1c Calcium 7.3 L* D Calcium Adj for Albumin 8.2 L Total Bilirubin 0.8 AST 438 H ALT 162 H Alkaline Phosphatase 100 Total Creatine Kinase 3477 H CK-MB (CK-2) Less than 1.0 CK-MB (CK-2) % 0.0 Total Protein 5.6 L D Albumin 2.9 L D Microbiology 08/09/18 11:00 Urine Culture - Final Catheterized Urine No growth in 48 hours Review/Management - Diagnosis (1) Seizure Code(s): R56.9 - Unspecified convulsions Status: Acute Current Visit: Yes (2) Hypertensive urgency Code(s): I16.0 - Hypertensive urgency Status: Acute Current Visit: Yes (3) Alcohol intoxication Code(s): F10.929 - Alcohol use, unspecified with intoxication, unspecified Status: Acute Current Visit: Yes - Review/Management Plan: Severely hypertensive individual with reduced responsiveness and appeared to have seizure activity with elevated ethanol level ? PRES ?toxic-metabolic ? Serotonin syndrome ? Illicit drugs +fever; check csf rhabdo MRI brain-no acute lesion nsx following cervical fx Recommendation bp control mental status better ck declining Seizure fall precautions Watch for ethanol withdrawal speech eval d/w rn No driving, operating any heavy machinery or dangerous machinery, swimming alone for at least 6 months of being seizure, spell free.
[2018-08-11] MEDS ORDERED: Dexmedetomidine Inj 200 MCG in Sodium Chlor 0.9% Inj 48 ML IV.CONT PRN (12:31)
[2018-08-11] MEDS ORDERED: Etomidate Inj 40 MG/20 ML Vial IV.PUSH ONE (12:48)
[2018-08-11] MEDS ORDERED: fentaNYL Citrate Inj 100 MCG/2 ML Ampul ONE (12:49)
--- NOTE | 2018-08-11 13:38 | P.PCN ---
Date of procedure: 08/11/18 Pre-op diagnosis: Acute respiratory failure Post-op diagnosis: same Procedure: Procedure: Endotracheal intubation Indication: hypoxic resp failure Sedation used: Etomidate 40 mg, fentanyl 200 mcg, Rocuronium 50mg IV Procedure: Patient was preoxygenated with 100% oxygen via Ambu bag with bag mask ventilation, following induction of sedation and neuromuscular blockade, initial attempt using MAC 4 blade while awaiting glide scope however vocal cords were not well visualized due to c-collar and resulted in esophageal intubation following which ET tube was removed and patient was continued to be ventilated with bag mask ventilation while awaiting glide scope. Laryngoscopy was performed using a Glidescpoe blade with good visualization of vocal cords. An 8 [place] ET tube was passed through the vocal cords under direct visualization up to the 24 centimeter enrique and after inflating cuff of ET tube, correct placement was confirmed using bagging with good color change on CO2 detector, 5 point auscultation and chest rise with ventilation. Patient was connected to mechanical ventilatio Patient tolerated the procedure well with no immediate complications noted. Postprocedure chest x-ray was ordered.
[2018-08-11 13:45] LABS: ABG Base Excess 4.7 mmol/L (-2-2); ABG PCO2 45 mmHg (38-42); ABG PO2 105 mmHg (61-120)
--- NOTE | 2018-08-11 14:23 | XR ---
EXAM DATE: 08/11/2018 2:19 PM EST AGE/SEX: 58 years / Male INDICATIONS: Post intubation. Evaluate et tube placement. CLINICAL DATA: This is the patient's subsequent encounter. Patient reports that signs and symptoms h ave been present for 2 days and indicates a pain score of Nonresponsive. MEDICAL/SURGICAL HISTORY: Non-responsive. Non-responsive. COMPARISON: C, CHEST 1V SINGLE AP, 08/10/2018. . FINDINGS: The endotracheal tube appears to be in good position. There is an NG tube in the stomach.. There is n o pneumothorax. There are increasing bilateral pulmonary infiltrates in both lung bases. The heart si ze is stable. No significant pleural effusions. CONCLUSION: Increasing bibasal infiltrates. Electronically signed by: Yaron Guerrero MD Board Certified Radiologist 08/11/2018 2:21 PM EST
[2018-08-11] MEDS ORDERED: Vancomycin Consult Pharmacy OTHER PRN (14:58)
[2018-08-11] MEDS ORDERED: Multivitamin Inj 10 ML, Thiamine Inj 100 MG, Folic Acid Inj 1 MG in Dextrose 5%/NaCl 0.... IV.SIG SCH (15:00)
[2018-08-11] MEDS: Piperacil/Tazo 3.375 GM Premix 3.375 GM/50 ML PIGGYBACK IV.SIG SCH ×2 (15:15→20:02)
--- NOTE | 2018-08-11 15:29 | ECHRPT ---
Indication: ATRIAL FIB/FLUTTER CONCLUSIONS Normal left ventricular size. Wall thickness is measured at the upper limits of normal. The left ventricular systolic function is low normal with an estimated ejection fraction in the rang e of 50- 55%. Bvcf-gl-tcmgmtle mitral valve regurgitation. There is trace tricuspid valve regurgitation. The estimated pulmonary arterial pressure is 24 mmHg. BP: / HR: Rhythm: Sinus MEASUREMENTS (Male / Female) Normal Values Technical Quality:Very technically difficult study 2D ECHO LV Diastolic Diameter PLAX 5.4 cm 4.2 - 5.9 / 3.9 - 5.3 cm LV Systolic Diameter PLAX 4.0 cm IVS Diastolic Thickness 1.1 cm 0.6 - 1.0 / 0.6 - 0.9 cm LVPW Diastolic Thickness 1.1 cm 0.6 - 1.0 / 0.6 - 0.9 cm LV Relative Wall Thickness 0.4 RV Internal Dim ED PLAX 2.7 cm LVOT Diameter 2.2 cm Aortic Root Diameter 3.1 cm LA Systolic Diameter LX 3.9 cm 3.0 - 4.0 / 2.7 - 3.8 cm DOPPLER MR Peak Velocity 578.0 cm/s MR Peak Gradient 133.6 mmHg TR Peak Velocity 185.0 cm/s TR Peak Gradient 13.7 mmHg Right Atrial Pressure 10.0 mmHg Pulmonary Artery Systolic Pressu 23.7 mmHg Right Ventricular Systolic Press 23.7 mmHg PV Peak Velocity 119.0 cm/s PV Peak Gradient 5.7 mmHg FINDINGS LEFT VENTRICLE Normal left ventricular size. Wall thickness is measured at the upper limits of normal. The left ventricular systolic function is low normal with an estimated ejection fraction in the rang e of 50- 55%. RIGHT VENTRICLE The right ventricle was not well visualized. LEFT ATRIUM The left atrial size is normal. RIGHT ATRIUM The right atrium is not well visualized. ATRIAL SEPTUM The interatrial septum not well visualized. AORTA The aortic root and proximal ascending aorta are normal in size on limited imaging. MITRAL VALVE Tkgm-kz-frsyjieu mitral valve regurgitation. AORTIC VALVE Trileaflet aortic valve. TRICUSPID VALVE There is trace tricuspid valve regurgitation. The estimated pulmonary arterial pressure is 24 mmHg. PULMONARY VALVE No pulmonary valve regurgitation or stenosis. VESSELS The inferior vena cava was not well visualized. Vicente Hall MD, FACC, [facility] [place] (Electronically Signed) Final Date:11 August 2018 15:29
[2018-08-11 16:38] LABS: Baso % (Auto) 0.9 % (0.0-2.0); Eos % (Auto) 0.1 % (0.0-4.0); Hematocrit 32.4 % (39.0-51.0); Hemoglobin 11.2 gm/dL (13.0-17.0); Lymph # (Auto) 0.5 th/mm3 (1.0-4.8); Lymph % (Auto) 9.7 % (9.0-44.0); Mean Corpuscular HGB Conc 34.5 % (32.0-36.0); Mean Corpuscular Hemoglobin 32.5 pg (27.0-34.0); Mean Corpuscular Volume 94.3 fL (80.0-100.0); Mean Platelet Volume 8.2 fL (7.0-11.0); Mono # (Auto) 0.2 th/mm3 (0.0-0.9); Mono % (Auto) 2.8 % (0.0-8.0); Neut # (Auto) 4.7 th/mm3 (1.8-7.7); Neut % (Auto) 86.5 % (16.0-70.0); Platelet Count 114 th/mm3 (150-450); Red Blood Count 3.43 mil/mm3 (4.50-5.90); Red Cell Distribution Width 14.1 % (11.6-17.2); White Blood Count 5.4 th/mm3 (4.0-11.0)
--- NOTE | 2018-08-11 17:54 | CT ---
EXAM DATE: 08/11/2018 5:45 PM EST AGE/SEX: 58 years / Male INDICATIONS: Respiratory arrest CLINICAL DATA: This is the patient's initial encounter. Patient reports that signs and symptoms have been present for 1 day and indicates a pain score of Nonresponsive. MEDICAL/SURGICAL HISTORY: Hypertension. None. RADIATION DOSE: 10.63 CTDI (mGy) COMPARISON: No prior exams available for comparison. TECHNIQUE: Volumetric scanning was performed using a multi-row detector CT scanner during bolus infu diego of 55 ml Omnipaque 350 (iohexol) nonionic water-soluble contrast as a single exam dose. The mady a was post processed with a variety of visualization algorithms including full volume maximum intensi ty projection and sliding thin slab reformation. Using automated exposure control and adjustment of t he mA and/or kV according to patient size, radiation dose was kept as low as reasonably achievable to obtain optimal diagnostic quality images. DICOM format image data is available electronically for r eview and comparison. FINDINGS: Pulmonary Arteries: No filling defects are seen in the pulmonary arteries out to the subsegmental ve ssels. The left and right pulmonary arteries are normal in diameter. Lung: There are infiltrates in the posterior aspect of both mid to lower lungs. There is a small inf iltrate in the right middle lobe. There is a small infiltrate in the anterior left upper lung. Effusion: No significant pleural effusions. Mediastinum: No evidence of mediastinal or hilar adenopathy. Other: There appears to be occlusion of the right subclavian vein with multiple collateral vessels s een at the base of the right neck. CONCLUSION: 1. No evidence of any pulmonary embolism. 2. There are bilateral infiltrates predominantly in the posterior mid to lower lung villarreal. 3. 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 Electronically signed by: Yaron Guerrero MD Board Certified Radiologist 08/11/2018 5:52 PM EST
[2018-08-11] MEDS: Multivitamin Inj 10 ML, Thiamine Inj 100 MG, Folic Acid Inj 1 MG in Dextrose 5%/NaCl 0.... IV.SIG SCH (18:00)
[2018-08-11] MEDS: Vancomycin Inj 1,500 MG in Sodium Chlor 0.9% Inj 500 ML IV.SIG SCH (18:00)
[2018-08-12 01:03] LABS: Albumin 2.7 g/dL (3.4-5.0); Calcium 7.1 mg/dL (8.5-10.1); Carbon Dioxide 31.3 meq/L (21.0-32.0); Potassium 3.1 meq/L (3.5-5.1); Total Protein 5.5 g/dL (6.4-8.2)
[2018-08-12] MEDS: Oral Hygiene Kit OROPHARYNG SCH ×4 (01:25→16:13)
[2018-08-12] MEDS: Labetalol HCl Inj 100 MG/20 ML Vial IV.PUSH PRN (02:06)
[2018-08-12] MEDS: Piperacil/Tazo 3.375 GM Premix 3.375 GM/50 ML PIGGYBACK IV.SIG SCH ×4 (03:14→20:22)
[2018-08-12] MEDS: Propofol 1000 mg/100 ml Inj 1,000 MG/100 ML BOTTLE IV.CONT PRN ×6 (03:27→20:25)
[2018-08-12] MEDS: hydrALAZINE HCl Inj 20 MG/ML Vial IV.PUSH PRN ×2 (03:56→16:45)
[2018-08-12] MEDS: Vancomycin Inj 1,500 MG in Sodium Chlor 0.9% Inj 500 ML IV.SIG SCH ×2 (04:02→16:13)
[2018-08-12 04:32] LABS: Baso % (Auto) 0.7 % (0.0-2.0); Eos # (Auto) 0.1 th/mm3 (0.0-0.4); Eos % (Auto) 1.2 % (0.0-4.0); Hematocrit 31.7 % (39.0-51.0); Lymph # (Auto) 0.8 th/mm3 (1.0-4.8); Lymph % (Auto) 15.4 % (9.0-44.0); Mean Corpuscular HGB Conc 34.7 % (32.0-36.0); Mean Corpuscular Hemoglobin 32.5 pg (27.0-34.0); Mean Corpuscular Volume 93.5 fL (80.0-100.0); Mean Platelet Volume 8.3 fL (7.0-11.0); Mono # (Auto) 0.3 th/mm3 (0.0-0.9); Mono % (Auto) 6.5 % (0.0-8.0); Neut # (Auto) 3.7 th/mm3 (1.8-7.7); Neut % (Auto) 76.2 % (16.0-70.0); Platelet Count 101 th/mm3 (150-450); Red Blood Count 3.39 mil/mm3 (4.50-5.90); White Blood Count 4.9 th/mm3 (4.0-11.0)
[2018-08-12] MEDS: Acyclovir Inj 700 MG in Sodium Chlor 0.9% Inj 100 ML IV.SIG SCH ×3 (05:22→23:25)
[2018-08-12] MEDS: Potassium Chlor 20 mEq Premix 20 MEQ/100 ML PIGGYBACK IV.SIG PRN ×3 (05:22→23:31)
[2018-08-12] MEDS: Sodium Bicarbonate 8.4% Inj 150 MEQ in Dextrose 5% in Water Inj 850 ML IV.CONT SCH ×6 (05:24→20:21)
[2018-08-12] MEDS: Chlorhexidine 0.12% Oral Kit 15 ML UDC OROPHARYNG SCH ×2 (07:49→20:22)
[2018-08-12] MEDS: Lacosamide Inj 100 MG in Sodium Chlor 0.9% Inj 100 ML IV.SIG SCH ×2 (09:14→20:23)
[2018-08-12] MEDS: fentaNYL 10 mcg/mL Premix Drip 2,500 MCG/250 ML BAG IV.SIG PRN ×2 (09:14→20:26)
[2018-08-12] MEDS: Famotidine 20 MG Tablet NG/OG SCH ×2 (09:14→20:22)
[2018-08-12] MEDS: Multivitamin Inj 10 ML, Thiamine Inj 100 MG, Folic Acid Inj 1 MG in Dextrose 5%/NaCl 0.... IV.SIG SCH (09:14)
[2018-08-12] MEDS ORDERED: fentaNYL Citrate Inj 100 MCG/2 ML Ampul IV.PUSH ONE (09:30)
--- NOTE | 2018-08-12 10:30 | P.PNNEU ---
Subjective Subjective Comments: Episodes of tremulousness agitation reintubated Active Medications: Active Medications Aspirin (Aspirin Supp) 300 mg RECTAL DAILY [facility] Last Admin: 08/10/18 08:01 Dose: 300 mg Chlorhexidine Gluconate (Peridex 0.12% Oral Kit) 15 ml OROPHARYNG BID@0800, 2000 [facility] Last Admin: 08/12/18 07:49 Dose: 15 ml Dextrose (D50w Vial) 50 ml IV.PUSH UNSCH PRN PRN Reason: PER HYPOGLYCEMIA PROTOCOL Famotidine (Pepcid) 20 mg NG/OG BID [facility] Last Admin: 08/12/18 09:14 Dose: 20 mg Glucagon (Glucagon Inj) 1 mg OTHER UNSCH PRN PRN Reason: for Hypoglycemia Protocol Heparin Sodium (Porcine) (Heparin Inj) 5,000 units SQ Q8H [facility] Last Admin: 08/10/18 12:57 Dose: Not Given Hydralazine HCl (Apresoline Inj) 10 mg IV.PUSH Q4H PRN PRN Reason: SBP >160 Last Admin: 08/12/18 03:56 Dose: 10 mg Nicardipine HCl 25 mg/ Sodium (Chloride) 250 mls @ 50 mls/hr IV.CONT TITRATE PRN; Protocol PRN Reason: Per Protocol Last Titration: 08/11/18 10:44 Dose: Infused Lacosamide 100 mg/ Sodium (Chloride) 110 mls @ 110 mls/hr IV.SIG Q12HR [facility] Last Admin: 08/12/18 09:14 Dose: 110 mls/hr Sodium Bicarbonate 150 meq/ (Dextrose) 1,000 mls @ 125 mls/hr IV.CONT .Q8H [facility] Last Admin: 08/12/18 05:24 Dose: 125 mls/hr Propofol (Diprivan 1000 Mg/100 Ml Inj) 1,000 mg in 100 mls @ 2.634 mls/hr IV.CONT TITRATE PRN; Protocol PRN Reason: Per Protocol Last Admin: 08/12/18 06:28 Dose: 50 mcg/kg/min, 26.34 mls/hr Acyclovir Sodium 700 mg/ (Sodium Chloride) 114 mls @ 114 mls/hr IV.SIG Q8H [facility] Last Infusion: 08/12/18 07:06 Dose: Infused Magnesium Sulfate 4 gm/ Sodium (Chloride) 100 mls @ 50 mls/hr IV.SIG UNSCH PRN PRN Reason: For Magnesium 0.9 - 1.1 mg/dL Magnesium Sulfate 2 gm/ Sodium (Chloride) 100 mls @ 50 mls/hr IV.SIG UNSCH PRN PRN Reason: For Magnesium 1.2 - 1.6 mg/dL Potassium Chloride (Kcl 20 Meq Premix Inj) 20 meq in 100 mls @ 50 mls/hr IV.SIG Q2H PRN PRN Reason: For Potassium 3.3 - 3.5 mEq/L Potassium Chloride (Kcl 40 Meq Premix Inj) 40 meq in 100 mls @ 25 mls/hr IV.SIG UNSCH PRN PRN Reason: For Potassium 3.3 - 3.5 mEq/L Potassium Chloride (Kcl 20 Meq Premix Inj) 20 meq in 100 mls @ 50 mls/hr IV.SIG Q2H PRN PRN Reason: For Potassium 2.8 - 3.2 mEq/L Last Admin: 08/12/18 07:52 Dose: 50 mls/hr Potassium Phosphate 30 mmol/ (Sodium Chloride) 260 mls @ 42 mls/hr IV.SIG UNSCH PRN PRN Reason: SEE LABEL COMMENTS Sodium Phosphate 30 mmol/ (Sodium Chloride) 260 mls @ 42 mls/hr IV.SIG UNSCH PRN PRN Reason: For Phosphorus < 2.5 mg/dL Potassium Chloride (Kcl 40 Meq Premix Inj) 40 meq in 100 mls @ 50 mls/hr IV.SIG Q2H PRN PRN Reason: For Potassium 2.8 - 3.2 mEq/L Dexmedetomidine HCl 200 mcg/ (Sodium Chloride) 50 mls @ 4.73 mls/hr IV.CONT TITRATE PRN; Protocol PRN Reason: Per Protocol Piperacillin/Tazobactam/Dextrose (Zosyn 3.375 Gm Premix) 3.375 gm in 50 mls @ 100 mls/hr IV.SIG Q6H [facility] Last Admin: 08/12/18 09:14 Dose: 100 mls/hr Multivitamins 10 ml/ Thiamine HCl 100 mg/ Folic Acid 1 mg/Dextrose/Sodium Chloride 511.2 mls @ 127.8 mls/hr IV.SIG DAILY [facility] Last Admin: 08/12/18 09:14 Dose: 127.8 mls/hr Vancomycin HCl 1,500 mg/ (Sodium Chloride) 515 mls @ 250 mls/hr IV.SIG Q12H [facility] Last Infusion: 08/12/18 07:06 Dose: Infused Fentanyl (Fentanyl 10 Mcg/Ml Premix Drip) 2,500 mcg in 250 mls @ 5 mls/hr IV.SIG TITRATE PRN; Protocol PRN Reason: Per Protocol Last Admin: 08/12/18 09:14 Dose: 50 mcg/hr, 5 mls/hr Labetalol HCl (Trandate Inj) 20 mg IV.PUSH Q4H PRN PRN Reason: SBP>160, DBP>90 Last Admin: 08/12/18 02:06 Dose: 20 mg Lorazepam (Ativan Inj) 2 mg IV.PUSH Q6H@07,13,19,01 PRN PRN Reason: AGITATION SEIZURE LIKE ACTIV Magnesium Oxide (Mag-Ox) 800 mg PO UNSCH PRN PRN Reason: For Magnesium 1.2 - 1.6 mg/dL Miscellaneous Information ([facility] Ordered Lab Info) 0 each OTHER ONCE ONE Stop: 08/13/18 16:46 Miscellaneous Medication () 1 each OROPHARYNG 0000,0400,1200,1600 [facility] Last Admin: 08/12/18 03:14 Dose: 1 each Ondansetron HCl (Zofran Inj) 4 mg IV.PUSH UNSCH X1 PRN PRN Reason: NAUSEA Stop: 08/13/18 01:04 Pharmacy Profile Note (Vancomycin Consult Pharmacy) 1 each OTHER UNSCH PRN PRN Reason: Pharmacy to dose Potassium Bicarb/Potassium Chloride (K-Lyte Cl Eff) 50 meq PO UNSCH PRN PRN Reason: For Potassium 3.3 - 3.5 mEq/L Last Admin: 08/12/18 05:22 Dose: 50 meq Potassium Phosphate (K-Phos Original) 2,000 mg PO Q4H PRN PRN Reason: Phosphorus Less Than 2.5 mg/dL Potassium Phosphate (K-Phos Original) 2,000 mg PO UNSCH PRN PRN Reason: SEE LABEL COMMENTS Sodium Chloride (Ns Flush) 2 ml IV.FLUSH BID [facility] Last Admin: 08/12/18 09:15 Dose: 2 ml Sodium Chloride (Ns Flush) 2 ml IV.FLUSH PRN PRN PRN Reason: FLUSH AFTER USING IV ACCESS Allergies/Adverse Reactions: Allergies Allergy/AdvReac Type Severity Reaction Status Date / Time No Known Allergies Allergy Verified 08/09/18 09:20 Review of Systems unobtainable due to endotracheal tube, unobtainable due to mental status Physical Exam Vital signs: Vital Signs 08/11/18 10:31 08/11/18 10:40 08/11/18 11:01 Temperature Pulse Rate 91 H Respiratory Rate 20 Blood Pressure 202/117 H 161/95 H Pulse Oximetry 98 08/11/18 11:08 08/11/18 11:38 08/11/18 12:08 Temperature Pulse Rate 86 86 93 H Respiratory Rate 18 20 Blood Pressure 177/100 H 178/97 H Pulse Oximetry 94 L 92 L 08/11/18 12:55 08/11/18 12:57 08/11/18 13:00 Temperature 101.3 F H Pulse Rate 117 H 108 H 103 H Respiratory Rate 40 H 35 H 35 H Blood Pressure 231/131 H 212/134 H 227/122 H Pulse Oximetry 72 L 80 L 60 L 08/11/18 13:02 08/11/18 13:05 08/11/18 13:07 Temperature Pulse Rate 102 H 103 H 100 H Respiratory Rate 19 22 20 Blood Pressure 229/126 H 230/124 H 179/100 H Pulse Oximetry 65 L 66 L 92 L 08/11/18 13:10 08/11/18 13:12 08/11/18 13:15 Temperature Pulse Rate 89 87 86 Respiratory Rate 16 20 14 Blood Pressure 173/95 H 175/93 H 175/96 H Pulse Oximetry 94 L 95 91 L 08/11/18 13:17 08/11/18 13:20 08/11/18 13:22 Temperature Pulse Rate 85 84 84 Respiratory Rate 12 31 H 17 Blood Pressure 175/94 H 154/84 H 158/92 H Pulse Oximetry 93 L 95 97 08/11/18 13:25 08/11/18 13:27 08/11/18 13:29 Temperature Pulse Rate 83 82 Respiratory Rate 32 H 22 16 Blood Pressure 150/82 H 139/76 Pulse Oximetry 98 100 97 08/11/18 13:30 08/11/18 13:32 08/11/18 13:35 Temperature Pulse Rate 81 80 79 Respiratory Rate 19 16 16 Blood Pressure 107/65 103/62 100/60 Pulse Oximetry 100 99 99 08/11/18 13:37 08/11/18 13:40 08/11/18 13:42 Temperature Pulse Rate 78 78 78 Respiratory Rate 18 16 16 Blood Pressure 100/59 L 99/60 L 99/60 L Pulse Oximetry 98 98 98 08/11/18 13:45 08/11/18 14:00 08/11/18 14:04 Temperature Pulse Rate 78 77 Respiratory Rate 16 16 Blood Pressure 99/61 L 96/59 L Pulse Oximetry 96 95 96 08/11/18 14:15 08/11/18 14:28 08/11/18 14:30 Temperature Pulse Rate 76 75 Respiratory Rate 16 16 16 Blood Pressure 96/58 L 101/60 Pulse Oximetry 96 97 08/11/18 14:45 08/11/18 15:00 08/11/18 15:15 Temperature Pulse Rate 74 74 73 Respiratory Rate 16 16 16 Blood Pressure 109/68 116/71 123/75 Pulse Oximetry 97 98 98 08/11/18 15:30 08/11/18 15:45 08/11/18 16:00 Temperature 99.1 F Pulse Rate 73 74 75 Respiratory Rate 16 17 17 Blood Pressure 127/79 128/80 128/80 Pulse Oximetry 98 99 99 08/11/18 16:15 08/11/18 16:30 08/11/18 16:45 Temperature Pulse Rate 75 74 74 Respiratory Rate 16 16 16 Blood Pressure 130/79 129/77 134/80 Pulse Oximetry 98 99 100 08/11/18 17:00 08/11/18 17:15 08/11/18 17:29 Temperature Pulse Rate 74 74 Respiratory Rate 16 16 Blood Pressure 122/75 136/77 Pulse Oximetry 100 98 98 08/11/18 17:35 08/11/18 17:45 08/11/18 18:00 Temperature Pulse Rate 72 72 Respiratory Rate 16 16 Blood Pressure 151/98 H 156/98 H 153/94 H Pulse Oximetry 100 100 08/11/18 18:15 08/11/18 18:30 08/11/18 18:45 Temperature Pulse Rate 71 71 70 Respiratory Rate 16 16 16 Blood Pressure 149/92 H 152/97 H 150/97 H Pulse Oximetry 100 100 100 08/11/18 19:00 08/11/18 19:15 08/11/18 19:30 Temperature Pulse Rate 69 69 69 Respiratory Rate 16 16 16 Blood Pressure 155/101 H 152/101 H 155/99 H Pulse Oximetry 100 100 100 08/11/18 19:45 08/11/18 19:54 08/11/18 20:00 Temperature Pulse Rate 69 69 Respiratory Rate 17 16 17 Blood Pressure 153/98 H 151/97 H Pulse Oximetry 100 100 100 08/11/18 20:15 08/11/18 20:30 08/11/18 20:45 Temperature Pulse Rate 71 70 69 Respiratory Rate 22 17 17 Blood Pressure 162/107 H 160/104 H 160/100 H Pulse Oximetry 100 100 100 08/11/18 21:00 08/11/18 21:30 08/11/18 22:00 Temperature Pulse Rate 69 69 68 Respiratory Rate 17 17 17 Blood Pressure 160/102 H 151/88 H Pulse Oximetry 100 100 100 08/11/18 22:15 08/11/18 22:45 08/11/18 23:00 Temperature Pulse Rate 68 71 69 Respiratory Rate 17 18 17 Blood Pressure 155/89 H Pulse Oximetry 100 100 100 08/11/18 23:57 08/12/18 00:00 08/12/18 00:30 Temperature Pulse Rate 68 Respiratory Rate 18 18 Blood Pressure 159/90 H 162/95 H Pulse Oximetry 100 100 08/12/18 01:00 08/12/18 01:15 08/12/18 01:30 Temperature Pulse Rate 67 66 Respiratory Rate 18 18 Blood Pressure 162/96 H 159/92 H 159/94 H Pulse Oximetry 100 100 08/12/18 01:45 08/12/18 02:00 08/12/18 03:00 Temperature Pulse Rate 65 65 65 Respiratory Rate 17 17 16 Blood Pressure 163/100 H Pulse Oximetry 100 100 100 08/12/18 04:00 08/12/18 04:15 08/12/18 04:30 Temperature 99.2 F Pulse Rate 68 73 Respiratory Rate 18 32 H Blood Pressure 161/86 H 159/94 H Pulse Oximetry 100 100 08/12/18 05:00 08/12/18 05:03 08/12/18 05:30 Temperature Pulse Rate 71 Respiratory Rate 19 Blood Pressure 157/88 H 157/88 H Pulse Oximetry 100 08/12/18 06:00 08/12/18 06:30 08/12/18 07:00 Temperature Pulse Rate 71 79 Respiratory Rate 16 36 H Blood Pressure 163/92 H 158/103 H 158/88 H Pulse Oximetry 100 95 08/12/18 07:30 08/12/18 08:00 08/12/18 08:30 Temperature 99.5 F Pulse Rate 74 70 76 Respiratory Rate 16 16 17 Blood Pressure 149/84 H 143/81 H 140/114 H Pulse Oximetry 100 100 100 08/12/18 08:55 08/12/18 09:00 Temperature Pulse Rate 68 Respiratory Rate 16 16 Blood Pressure 163/94 H Pulse Oximetry 100 100 Intake & Output 08/11/18 08/12/18 08/12/18 18:59 06:59 18:59 Intake Total 1864 / 1864 3800.2 / 3800.2 779 / 779 Output Total 1450 / 1450 1000 / 1000 Balance 414 / 414 2800.2 / 2800.2 779 / 779 Weight 92.7 kg Intake: IV 1864 / 1864 3800.2 / 3800.2 779 / 779 Diprivan 1000 mg/100 ml Inj 1, 150 / 150 400 / 400 000 mg In 100 ml @ 5 MCG/KG/MIN 2.634 mls/hr IV.CONT TITRATE PRN Rx#:[id number] Sodium Bicarbonate 8.4% Inj 150 950 / 950 2000 / 2000 MEQ In D5W Inj 850 ML @ 125 mls/hr IV.CONT .Q8H [facility] Rx#: [id number] Cardene Inj 25 MG In NS Inj 240 240 / 240 ML @ 5 MG/HR 50 mls/hr IV.CONT TITRATE PRN Rx#:[id number] Zovirax Inj 700 MG In NS Inj 114 / 114 114 / 114 114 / 114 100 ML @ 114 mls/hr IV.SIG Q8H [facility] Rx#:[id number] Vimpat Inj 100 MG In NS Inj 100 110 / 110 110 / 110 ML @ 110 mls/hr IV.SIG Q12HR [facility] Rx#:[id number] MVI-12 Inj 10 ML Thiamine Inj 511.2 / 511.2 100 MG Folvite Inj 1 MG In D5W- 1/2 NS Inj 500 ML @ 127.8 mls/ hr IV.SIG DAILY [facility] Rx#: [id number] Zosyn 3.375 GM Premix 3.375 gm 50 / 50 50 / 50 50 / 50 In 50 ml @ 100 mls/hr IV.SIG Q6H [facility] Rx#:[id number] KCl 20 mEq Premix Inj 20 meq In 250 / 250 100 / 100 100 / 100 100 ml @ 50 mls/hr IV.SIG Q2H PRN Rx#:[id number] Vancomycin Inj 1,500 MG In NS 515 / 515 515 / 515 Inj 500 ML @ 250 mls/hr IV.SIG Q12H [facility] Rx#:[id number] Output: Urine 850 / 850 Urine Amount (Catheter) 1350 / 1350 Condom 150 / 150 Indwelling Urethral Catheter 1200 / 1200 Gastric Drainage 100 / 100 150 / 150 Orogastric Tube 100 / 100 150 / 150 Other: # Bowel Movements 0 Narrative: Intubated limited exam no involuntary movements on propofol drip - Urinary Catheter Management Indwelling Urethral Catheter Cath placed during this visit: yes, but has since been removed by the nurse Reason for continuing: Hourly intake/output Insertion date: 08/09/18 Insertion time: 18:30 Removal date: 08/11/18 Removal time: 09:50 Condom Cath placed during this visit: no Objective Laboratory Results - last 24 hr 08/11/18 08/11/18 08/11/18 13:31 16:26 16:26 WBC 5.4 RBC 3.43 L Hgb 11.2 L Hct 32.4 L MCV 94.3 MCH 32.5 MCHC 34.5 RDW 14.1 Plt Count 114 L MPV 8.2 Neut % (Auto) 86.5 H Lymph % (Auto) 9.7 [place] % (Auto) 2.8 Eos % (Auto) 0.1 Baso % (Auto) 0.9 Neut # (Auto) 4.7 Lymph # (Auto) 0.5 L [place] # (Auto) 0.2 Eos # (Auto) 0.0 Baso # (Auto) 0.0 WBC Differential . Differential Comment Auto diff final Puncture Site Left radial Patient Temperature 98.6 O2 Saturation 96 ABG pH 7.43 H ABG pCO2 45 H ABG pO2 105 ABG HCO3 29 H ABG O2 Content 15.4 ABG Base Excess 4.7 H ABG Methemoglobin 1.4 [place] Test Present Hemoglobin 11.3 L Carboxyhemoglobin 1.1 O2 Delivery Device Ventilator Vent Setting Prvc/ac Inspired O2 60 Critical Value No Sodium Potassium Chloride Carbon Dioxide Anion Gap BUN Creatinine Estimated GFR Random Glucose Lactic Acid 1.2 Calcium Calcium Adj for Albumin Magnesium Total Bilirubin AST ALT Alkaline Phosphatase Total Protein Albumin 08/12/18 08/12/18 08/12/18 00:01 00:19 03:44 WBC 4.9 RBC 3.39 L Hgb 11.0 L Hct 31.7 L MCV 93.5 MCH 32.5 MCHC 34.7 RDW 14.0 Plt Count 101 L MPV 8.3 Neut % (Auto) 76.2 H Lymph % (Auto) 15.4 [place] % (Auto) 6.5 Eos % (Auto) 1.2 Baso % (Auto) 0.7 Neut # (Auto) 3.7 Lymph # (Auto) 0.8 L [place] # (Auto) 0.3 Eos # (Auto) 0.1 Baso # (Auto) 0.0 WBC Differential . Differential Comment Auto diff final Puncture Site Patient Temperature O2 Saturation ABG pH ABG pCO2 ABG pO2 ABG HCO3 ABG O2 Content ABG Base Excess ABG Methemoglobin [place] Test Hemoglobin Carboxyhemoglobin O2 Delivery Device Vent Setting Inspired O2 Critical Value Sodium 141 Potassium 3.1 L Chloride 102 Carbon Dioxide 31.3 Anion Gap 8 BUN 14 Creatinine 1.14 Estimated GFR 66 L Random Glucose 109 H Lactic Acid Calcium 7.1 L* Calcium Adj for Albumin 8.1 L Magnesium 1.8 Total Bilirubin 0.7 AST 461 H ALT 212 H Alkaline Phosphatase 95 Total Protein 5.5 L Albumin 2.7 L Microbiology 08/11/18 15:00 Gram Stain - Final Sputum - Endotracheal 08/09/18 11:00 Urine Culture - Final Catheterized Urine No growth in 48 hours Review/Management - Diagnosis (1) Seizure Code(s): R56.9 - Unspecified convulsions Status: Acute Current Visit: Yes (2) Hypertensive urgency Code(s): I16.0 - Hypertensive urgency Status: Acute Current Visit: Yes (3) Alcohol intoxication Code(s): F10.929 - Alcohol use, unspecified with intoxication, unspecified Status: Acute Current Visit: Yes - Review/Management Plan: Severely hypertensive individual with reduced responsiveness and appeared to have seizure activity with elevated ethanol level ? Alcohol withdrawal suspected. Other consideration would include: toxic- metabolic ? Serotonin syndrome ? Illicit drugs +fever; check csf Apparently was doing heavy drinking past several weeks per RN discussion with the patient's brother next rhabdo MRI brain-no acute lesion nsx following cervical fx Recommendation CSF studies Alcohol withdrawal precautions IV thiamine Scheduled benzo speech marino d/w rn No driving, operating any heavy machinery or dangerous machinery, swimming alone for at least 6 months of being seizure, spell free.
--- NOTE | 2018-08-12 10:50 | P.PNCC ---
Subjective Subjective Remarks/Hospital Course: 08/09: 58-year-old male who was found down in his friend's garage this morning. He has a history of alcohol abuse. He recently sold his house and was staying at a friend's home. Reportedly he was due to fly later today. Patient was brought to the ER by EMS and was noted to have involuntary movements with jerking movements involving upper and lower extremities as well as his head. He received Ativan 3 mg IV and was loaded with Keppra. Initially stroke alert was called. Head CT was negative for any bleed however there was question of C6 fracture. Neurology and neurosurgery were consulted. Patient was loaded with IV Cerebyx and Vimpat by neurology. He had a [place] J collar placed after placing hard cervical collar by neurosurgery. When I evaluated the patient in the ER he was still having involuntary movements which appeared to be episodic with occasional twitchings on his face and nystagmus. This did not appear to be generalized tonic-clonic convulsions however appeared more like an extrapyramidal reaction. I ordered a stat EEG. Patient moving around too much to obtain MRI at this time. His urine tox screen was negative. He was positive for alcohol. Patient nonverbal. His involuntary movements get exaggerated on stimulation. He was reportedly completely normal yesterday. 08/10: Patient had an episode of emesis last night followed by labored breathing. He continued to have involuntary movements. He was intubated and placed on mechanical ventilation. Currently sedated with propofol, orally intubated on mechanical ventilation. Awaiting MRI brain and C-spine. EEG done yesterday did not show any seizure activity. 08/11: Sedated, orally intubated on mechanical ventilation. MRI brain unremarkable. MRI C-spine with hairline C6 fracture with no displacement. 08/12: Remains sedated, orally intubated on mechanical ventilation. Reintubated yesterday for significant hypoxia and respiratory distress with O2 sats dropping to the 70s despite nonrebreather facemask. CT pulmonary angiogram was negative for PE and showed bilateral infiltrates at the bases. Objective Vital Signs / I&O: Vital Signs 08/11/18 11:01 08/11/18 11:08 08/11/18 11:38 Temperature Pulse Rate 86 86 Respiratory Rate 18 20 Blood Pressure 161/95 H 177/100 H 178/97 H Pulse Oximetry 94 L 92 L 08/11/18 12:08 08/11/18 12:55 08/11/18 12:57 Temperature Pulse Rate 93 H 117 H 108 H Respiratory Rate 40 H 35 H Blood Pressure 231/131 H 212/134 H Pulse Oximetry 72 L 80 L 08/11/18 13:00 08/11/18 13:02 08/11/18 13:05 Temperature 101.3 F H Pulse Rate 103 H 102 H 103 H Respiratory Rate 35 H 19 22 Blood Pressure 227/122 H 229/126 H 230/124 H Pulse Oximetry 60 L 65 L 66 L 08/11/18 13:07 08/11/18 13:10 08/11/18 13:12 Temperature Pulse Rate 100 H 89 87 Respiratory Rate 20 16 20 Blood Pressure 179/100 H 173/95 H 175/93 H Pulse Oximetry 92 L 94 L 95 08/11/18 13:15 08/11/18 13:17 08/11/18 13:20 Temperature Pulse Rate 86 85 84 Respiratory Rate 14 12 31 H Blood Pressure 175/96 H 175/94 H 154/84 H Pulse Oximetry 91 L 93 L 95 08/11/18 13:22 08/11/18 13:25 08/11/18 13:27 Temperature Pulse Rate 84 83 82 Respiratory Rate 17 32 H 22 Blood Pressure 158/92 H 150/82 H 139/76 Pulse Oximetry 97 98 100 08/11/18 13:29 08/11/18 13:30 08/11/18 13:32 Temperature Pulse Rate 81 80 Respiratory Rate 16 19 16 Blood Pressure 107/65 103/62 Pulse Oximetry 97 100 99 08/11/18 13:35 08/11/18 13:37 08/11/18 13:40 Temperature Pulse Rate 79 78 78 Respiratory Rate 16 18 16 Blood Pressure 100/60 100/59 L 99/60 L Pulse Oximetry 99 98 98 08/11/18 13:42 08/11/18 13:45 08/11/18 14:00 Temperature Pulse Rate 78 78 77 Respiratory Rate 16 16 16 Blood Pressure 99/60 L 99/61 L 96/59 L Pulse Oximetry 98 96 95 08/11/18 14:04 08/11/18 14:15 08/11/18 14:28 Temperature Pulse Rate 76 Respiratory Rate 16 16 Blood Pressure 96/58 L Pulse Oximetry 96 96 08/11/18 14:30 08/11/18 14:45 08/11/18 15:00 Temperature Pulse Rate 75 74 74 Respiratory Rate 16 16 16 Blood Pressure 101/60 109/68 116/71 Pulse Oximetry 97 97 98 08/11/18 15:15 08/11/18 15:30 08/11/18 15:45 Temperature Pulse Rate 73 73 74 Respiratory Rate 16 16 17 Blood Pressure 123/75 127/79 128/80 Pulse Oximetry 98 98 99 08/11/18 16:00 08/11/18 16:15 08/11/18 16:30 Temperature 99.1 F Pulse Rate 75 75 74 Respiratory Rate 17 16 16 Blood Pressure 128/80 130/79 129/77 Pulse Oximetry 99 98 99 08/11/18 16:45 08/11/18 17:00 08/11/18 17:15 Temperature Pulse Rate 74 74 74 Respiratory Rate 16 16 16 Blood Pressure 134/80 122/75 136/77 Pulse Oximetry 100 100 98 08/11/18 17:29 08/11/18 17:35 08/11/18 17:45 Temperature Pulse Rate 72 Respiratory Rate 16 Blood Pressure 151/98 H 156/98 H Pulse Oximetry 98 100 08/11/18 18:00 08/11/18 18:15 08/11/18 18:30 Temperature Pulse Rate 72 71 71 Respiratory Rate 16 16 16 Blood Pressure 153/94 H 149/92 H 152/97 H Pulse Oximetry 100 100 100 08/11/18 18:45 08/11/18 19:00 08/11/18 19:15 Temperature Pulse Rate 70 69 69 Respiratory Rate 16 16 16 Blood Pressure 150/97 H 155/101 H 152/101 H Pulse Oximetry 100 100 100 08/11/18 19:30 08/11/18 19:45 08/11/18 19:54 Temperature Pulse Rate 69 69 Respiratory Rate 16 17 16 Blood Pressure 155/99 H 153/98 H Pulse Oximetry 100 100 100 08/11/18 20:00 08/11/18 20:15 08/11/18 20:30 Temperature Pulse Rate 69 71 70 Respiratory Rate 17 22 17 Blood Pressure 151/97 H 162/107 H 160/104 H Pulse Oximetry 100 100 100 08/11/18 20:45 08/11/18 21:00 08/11/18 21:30 Temperature Pulse Rate 69 69 69 Respiratory Rate 17 17 17 Blood Pressure 160/100 H 160/102 H Pulse Oximetry 100 100 100 08/11/18 22:00 08/11/18 22:15 08/11/18 22:45 Temperature Pulse Rate 68 68 71 Respiratory Rate 17 17 18 Blood Pressure 151/88 H Pulse Oximetry 100 100 100 08/11/18 23:00 08/11/18 23:57 08/12/18 00:00 Temperature Pulse Rate 69 68 Respiratory Rate 17 18 18 Blood Pressure 155/89 H 159/90 H Pulse Oximetry 100 100 100 08/12/18 00:30 08/12/18 01:00 08/12/18 01:15 Temperature Pulse Rate 67 66 Respiratory Rate 18 18 Blood Pressure 162/95 H 162/96 H 159/92 H Pulse Oximetry 100 100 08/12/18 01:30 08/12/18 01:45 08/12/18 02:00 Temperature Pulse Rate 65 65 Respiratory Rate 17 17 Blood Pressure 159/94 H 163/100 H Pulse Oximetry 100 100 08/12/18 03:00 08/12/18 04:00 08/12/18 04:15 Temperature 99.2 F Pulse Rate 65 68 73 Respiratory Rate 16 18 32 H Blood Pressure 161/86 H Pulse Oximetry 100 100 100 08/12/18 04:30 08/12/18 05:00 08/12/18 05:03 Temperature Pulse Rate 71 Respiratory Rate 19 Blood Pressure 159/94 H 157/88 H Pulse Oximetry 100 08/12/18 05:30 08/12/18 06:00 08/12/18 06:30 Temperature Pulse Rate 71 Respiratory Rate 16 Blood Pressure 157/88 H 163/92 H 158/103 H Pulse Oximetry 100 08/12/18 07:00 08/12/18 07:30 08/12/18 08:00 Temperature 99.5 F Pulse Rate 79 74 70 Respiratory Rate 36 H 16 16 Blood Pressure 158/88 H 149/84 H 143/81 H Pulse Oximetry 95 100 100 08/12/18 08:30 08/12/18 08:55 08/12/18 09:00 Temperature Pulse Rate 76 68 Respiratory Rate 17 16 16 Blood Pressure 140/114 H 163/94 H Pulse Oximetry 100 100 100 Intake & Output 08/11/18 08/12/18 08/12/18 18:59 06:59 18:59 Intake Total 1864 / 1864 3800.2 / 3800.2 77 / 779 Output Total 1450 / 1450 1000 / 1000 Balance 414 / 414 2800.2 / 2800.2 Weight 92.7 kg Intake: IV 1864 / 4 3800.2 / 3800.2 77 / 77 Diprivan 1000 mg/100 ml Inj 1, 150 / 150 400 / 400 000 mg In 100 ml @ 5 MCG/KG/MIN 2.634 mls/hr IV.CONT TITRATE PRN Rx#:[id number] Sodium Bicarbonate 8.4% Inj 150 950 / 950 2000 / 2000 MEQ In D5W Inj 850 ML @ 125 mls/hr IV.CONT .Q8H SATYA Rx#: [id number] Cardene Inj 25 MG In NS Inj 240 240 / 240 ML @ 5 MG/HR 50 mls/hr IV.CONT TITRATE PRN Rx#:[id number] Zovirax Inj 700 MG In NS Inj 114 / 114 114 / 114 114 / 114 100 ML @ 114 mls/hr IV.SIG Q8H SATYA Rx#:[id number] Vimpat Inj 100 MG In NS Inj 100 110 / 110 110 / 110 ML @ 110 mls/hr IV.SIG Q12HR SATYA Rx#:[id number] MVI-12 Inj 10 ML Thiamine Inj 511.2 / 511.2 100 MG Folvite Inj 1 MG In D5W- 1/2 NS Inj 500 ML @ 127.8 mls/ hr IV.SIG DAILY SATYA Rx#: [id number] Zosyn 3.375 GM Premix 3.375 gm 50 / 50 50 / 50 50 / 50 In 50 ml @ 100 mls/hr IV.SIG Q6H SATYA Rx#:[id number] KCl 20 mEq Premix Inj 20 meq In 250 / 250 100 / 100 100 / 100 100 ml @ 50 mls/hr IV.SIG Q2H PRN Rx#:[id number] Vancomycin Inj 1,500 MG In NS 515 / 515 515 / 515 Inj 500 ML @ 250 mls/hr IV.SIG Q12H SATYA Rx#:[id number] Output: Urine 850 / 850 Urine Amount (Catheter) 1350 / 1350 Condom 150 / 150 Indwelling Urethral Catheter 1200 / 1200 Gastric Drainage 100 / 100 150 / 150 Orogastric Tube 100 / 100 150 / 150 Other: # Bowel Movements 0 Result Diagrams: 08/12/18 03:44 08/12/18 00:19 Objective Remarks: HEENT/ Neuro: Sedated, orally intubated, Pallor present, no icterus, tongue/ mucosa moist Neck: No JVD Chest/Pulm: on mech vent, good air entry bilaterally, no wheezing or crackles CVS: S1-S2 regular, no murmur GI/abdomen: soft, nontender, bowel sounds sluggish Extremities: warm bilaterally, no edema Assessment and Plan - Assessment and Plan Plan: 58-year-old male with: Encephalopathy Involuntary movements suspicious for seizures versus extrapyramidal reaction versus stroke versus anoxic injury C6 fracture Question of alcohol abuse Rhabdomyolysis Acute respiratory failure on mechanical ventilation Plan: Neuro: Sedation with propofol, daily sedation vacation. Follow neuro checks. Neurology neurosurgery consulted. EEG done in ER did not reveal any seizure activity with ongoing involuntary movements. MRI brain unremarkable, MRI C-spine nondisplaced C6 fracture, continue [place] J collar for 6 weeks per neurosurgery. Aspirin placed on hold for lumbar puncture. Started thiamine/MVI/folic acid IV in view of history of alcohol abuse Neurology started acyclovir IV while awaiting lumbar puncture Cardiovascular: Initially was hypertensive on arrival. Nicardipine gtt. if needed. Labetalol as needed. Maintenance IV fluids ordered. Pulmonary: Intubated for airway protection and placed on mechanical ventilation following episode of emesis with question of aspiration on 08/10 AM. vent bundle, bronchodilators as needed. Tolerated CPAP trial and extubated on 08/11 however about 5 hours following extubation and required reintubation for hypoxic respiratory failure of unclear etiology. CTA negative for PE. Consulted pulmonary for further evaluation of hypoxic respiratory failure GI/liver: Obtain swallow eval following extubation to decide regarding advancing diet Renal/: IV hydration, strict intake output, monitor and replete electrolytes, follow BUN/creatinine. On bicarb drip in view of rhabdomyolysis. Follow CPK. ID: No antibiotics at this time. Watch for fever/leukocytosis Endocrine: Watch for hyperglycemia, SSI for glycemic control if needed Heme: Follow CBC Prophylaxis: SCDs. heparin 5000 units subcutaneously every 8 hourly, Pepcid for GI prophylaxis Condition critical Time spent on critical care excluding procedures 30 minutes
--- NOTE | 2018-08-12 13:18 | MB ---
cc: Shaan Thurman MD DATE: 08/12/2018 REASON FOR CONSULTATION: Respiratory failure, hypoxemia. HISTORY OF PRESENT ILLNESS: The patient is a 58-year-old male with a history of hypertension, ETOH abuse, who presented to [facility] ED with altered mental status and involuntary movements with jerking movements involving the upper and lower extremities and his head. The patient was given Ativan and Keppra. Initially, a stroke alert was called. A CT scan of the brain was negative for a bleed. However, the patient was found to have a C6 fracture. Neurology and neurosurgery are following and the patient was placed on a [place] J collar. He required intubation and mechanical ventilation. An MRI of the brain was unremarkable. An MRI of the C-spine showed a hairline C6 fracture with no displacement. He was extubated and reintubated yesterday for hypoxemia and respiratory distress. A CT pulmonary angiogram was negative for PE; however, it showed bibasilar infiltrates. When seen, the patient is sedated with Diprivan and fentanyl and on full mechanical ventilation. He is on PRVC mode with a PEEP of 8 and FiO2 of 40%. The patient was placed on broad spectrum antibiotics. PAST MEDICAL HISTORY: Significant for hypertension, ETOH abuse. PAST SURGICAL HISTORY: Unknown. ALLERGIES: NO KNOWN DRUG ALLERGIES. SOCIAL HISTORY: Drinker per records. His urine drug screen is negative. ACTIVE MEDICATIONS: Include: 1. Acyclovir. 2. Thiamine. 3. Vancomycin. 4. Zosyn. 5. Ativan p.r.n. 6. Diprivan. 7. Fentanyl. REVIEW OF SYSTEMS: As per HPI. The rest of the review of systems is unobtainable. PHYSICAL EXAMINATION: GENERAL: A 58-year-old male intubated and on full mechanical ventilation. VITAL SIGNS: Temperature 98.4, T-max 101.3, pulse 63, blood pressure 166/95, saturation 100%. Vent settings PRVC rate of 16, tidal volume 550, I time 1.0, PEEP 8, FiO2 40%. HEENT: Atraumatic, normocephalic. Pupils are equal, round and reactive to light and accommodation. Extraocular muscles intact. Conjunctivae pink. Nonicteric sclerae. Oral mucosa within normal. NECK: Supple. No JVD, adenopathy or thyromegaly. Trachea in the midline. Orally intubated. CARDIOVASCULAR: Regular rate and rhythm. Normal S1, S2. No murmurs, rubs or gallops noted. PULMONARY: Bilateral equal entry with a few coarse breath sounds. ABDOMEN: Soft, nontender, mildly distended. Positive bowel sounds. EXTREMITIES: No cyanosis or clubbing. Trace edema. NEUROLOGIC: Intubated and sedated. LABORATORY DATA: WBC 4.9, hemoglobin 11, hematocrit 31, platelet count 101. Sodium 141, potassium 3.1, chloride 102, CO2 of 31, BUN 14, creatinine 1.14, glucose 109, AST 461, ALT 212, total bilirubin 0.7, albumin 2.7. ABG showed a pH of 7.43, CO2 of 45, pO2 of 105, bicarbonate 29, saturation 96%. RADIOGRAPHIC STUDIES: CTA of the chest on 08/11/2018 negative for PE; however, it showed bilateral pulmonary infiltrates, predominantly in the posterior mid to lower lung villarreal and occluded segment of the right subclavian vein. IMPRESSION: 1. Acute hypoxemic respiratory failure requiring reintubation and mechanical ventilation. 2. Aspiration pneumonia. 3. Encephalopathy. 4. Rhabdomyolysis with elevated CK. 5. C6 fracture. 6. Ethanol intoxication. 7. Anemia and thrombocytopenia. 8. Hypokalemia. RECOMMENDATIONS: 1. Continue with vent support and maintain sats above 92%. 2. Bronchodilators, we will place on DuoNeb q.4 plus q.2 p.r.n. for shortness of breath and ICU vent bundle. Decrease PEEP to 5. He is on a PRVC rate of 22, tidal volume 500, I time 1.0, PEEP of 8 and FiO2 of 40%. 3. Check a repeat chest x-ray in a.m. 4. Continue with antibiotics in the form of vancomycin and Zosyn. Monitor for signs of infection, which include fever and WBC. Follow up on blood cultures and sputum culture from 08/11/2018. The patient is also on acyclovir per neurology. Monitor neuro status closely and continue with sedation. Daily sedation vacation. The patient might need an LP with CSF studies. We will defer to neurology. Continue with thiamine. 5. Continue with IV fluids and monitor CKs. 6. Monitor renal function and electrolyte replacement per protocol. 7. Optimize blood pressure control. 8. We will obtain Doppler ultrasound of the lower extremities to rule out DVT. 9. Echocardiogram showed an EF of 50% to 55%. 10. GI and DVT prophylaxis. 11. Further recommendations will be based on hospital course. Thank you for the consultation and allowing us to participate in this patient's care. MD LEONIDAS Nathan/beatriz , 12:34 PM , 12:46 PM
--- NOTE | 2018-08-12 22:25 | US ---
EXAM DATE: 08/12/2018 10:23 PM EST AGE/SEX: 58 years / Male INDICATIONS: Bilateral leg swelling. CLINICAL DATA: This is the patient's initial encounter. Patient reports that signs and symptoms have been present for 1 day and indicates a pain score of Nonresponsive. MEDICAL/SURGICAL HISTORY: . Hypertension. ETOH abuse. None. COMPARISON: No prior exams available for comparison. TECHNIQUE: Venous ultrasound of both lower extremities was performed from the inguinal ligament to t he proximal calf. Real-time, color Doppler and spectral tracing, compression and augmentation techni ques were used. FINDINGS: Right Leg: Normal compression of the deep venous system from the inguinal region to the proximal kimberly f. No echogenic clot is seen. Normal response of the venous system to augmentation and respiration. Left Leg: Normal compression of the deep venous system from the inguinal region to the proximal calf . No echogenic clot is seen. Normal response of the venous system to augmentation and respiration. Other: None. CONCLUSION: 1. The study is negative for bilateral lower extremity deep venous thrombosis. Electronically signed by: Lenny Davis MD Board Certified Radiologist 08/12/2018 10:24 PM EST
[2018-08-13] MEDS: Propofol 1000 mg/100 ml Inj 1,000 MG/100 ML BOTTLE IV.CONT PRN ×8 (00:30→23:08)
[2018-08-13] MEDS: Piperacil/Tazo 3.375 GM Premix 3.375 GM/50 ML PIGGYBACK IV.SIG SCH ×4 (02:18→20:13)
[2018-08-13] MEDS: Potassium Chlor 20 mEq Premix 20 MEQ/100 ML PIGGYBACK IV.SIG PRN ×3 (02:18→06:06)
[2018-08-13] MEDS: Vancomycin Inj 1,500 MG in Sodium Chlor 0.9% Inj 500 ML IV.SIG SCH ×2 (04:06→16:35)
[2018-08-13] MEDS: Oral Hygiene Kit OROPHARYNG SCH ×4 (04:07→18:00)
[2018-08-13] MEDS: Acyclovir Inj 700 MG in Sodium Chlor 0.9% Inj 100 ML IV.SIG SCH ×3 (05:15→21:24)
[2018-08-13] MEDS: Sodium Bicarbonate 8.4% Inj 150 MEQ in Dextrose 5% in Water Inj 850 ML IV.CONT SCH ×4 (05:15→13:39)
[2018-08-13] MEDS: fentaNYL 10 mcg/mL Premix Drip 2,500 MCG/250 ML BAG IV.SIG PRN ×2 (08:17→16:40)
[2018-08-13 08:26] LABS: Albumin 2.6 g/dL (3.4-5.0); Calcium 6.9 mg/dL (8.5-10.1); Potassium 4.5 meq/L (3.5-5.1); Total Protein 5.5 g/dL (6.4-8.2)
--- NOTE | 2018-08-13 09:15 | P.PNNEU ---
Subjective Subjective Comments: episodes of agitation; jo, follows off sedation Active Medications: Active Medications Albuterol (Duoneb Neb (Prn)) 1 ampul NEB Q2HR NEB PRN PRN Reason: DYSPNEA Albuterol (Duoneb Neb (Manuela)) 1 ampul NEB Q4HR NEB [facility] Last Admin: 08/13/18 07:40 Dose: 1 ampul Aspirin (Aspirin Supp) 300 mg RECTAL DAILY [facility] Last Admin: 08/10/18 08:01 Dose: 300 mg Chlorhexidine Gluconate (Peridex 0.12% Oral Kit) 15 ml OROPHARYNG BID@0800, 2000 [facility] Last Admin: 08/12/18 20:22 Dose: 15 ml Dextrose (D50w Vial) 50 ml IV.PUSH UNSCH PRN PRN Reason: PER HYPOGLYCEMIA PROTOCOL Famotidine (Pepcid) 20 mg NG/OG BID [facility] Last Admin: 08/12/18 20:22 Dose: 20 mg Glucagon (Glucagon Inj) 1 mg OTHER UNSCH PRN PRN Reason: for Hypoglycemia Protocol Heparin Sodium (Porcine) (Heparin Inj) 5,000 units SQ Q8H [facility] Last Admin: 08/10/18 12:57 Dose: Not Given Hydralazine HCl (Apresoline Inj) 10 mg IV.PUSH Q4H PRN PRN Reason: SBP >160 Last Admin: 08/12/18 16:45 Dose: 10 mg Nicardipine HCl 25 mg/ Sodium (Chloride) 250 mls @ 50 mls/hr IV.CONT TITRATE PRN; Protocol PRN Reason: Per Protocol Last Titration: 08/11/18 10:44 Dose: Infused Lacosamide 100 mg/ Sodium (Chloride) 110 mls @ 110 mls/hr IV.SIG Q12HR [facility] Last Infusion: 08/12/18 21:23 Dose: Infused Sodium Bicarbonate 150 meq/ (Dextrose) 1,000 mls @ 125 mls/hr IV.CONT .Q8H [facility] Last Admin: 08/13/18 05:15 Dose: 125 mls/hr Propofol (Diprivan 1000 Mg/100 Ml Inj) 1,000 mg in 100 mls @ 2.634 mls/hr IV.CONT TITRATE PRN; Protocol PRN Reason: Per Protocol Last Admin: 08/13/18 07:38 Dose: 50 mcg/kg/min, 26.34 mls/hr Acyclovir Sodium 700 mg/ (Sodium Chloride) 114 mls @ 114 mls/hr IV.SIG Q8H [facility] Last Infusion: 08/13/18 06:15 Dose: Infused Magnesium Sulfate 4 gm/ Sodium (Chloride) 100 mls @ 50 mls/hr IV.SIG UNSCH PRN PRN Reason: For Magnesium 0.9 - 1.1 mg/dL Magnesium Sulfate 2 gm/ Sodium (Chloride) 100 mls @ 50 mls/hr IV.SIG UNSCH PRN PRN Reason: For Magnesium 1.2 - 1.6 mg/dL Potassium Chloride (Kcl 20 Meq Premix Inj) 20 meq in 100 mls @ 50 mls/hr IV.SIG Q2H PRN PRN Reason: For Potassium 3.3 - 3.5 mEq/L Potassium Chloride (Kcl 40 Meq Premix Inj) 40 meq in 100 mls @ 25 mls/hr IV.SIG UNSCH PRN PRN Reason: For Potassium 3.3 - 3.5 mEq/L Potassium Chloride (Kcl 20 Meq Premix Inj) 20 meq in 100 mls @ 50 mls/hr IV.SIG Q2H PRN PRN Reason: For Potassium 2.8 - 3.2 mEq/L Last Infusion: 08/13/18 08:18 Dose: Infused Potassium Phosphate 30 mmol/ (Sodium Chloride) 260 mls @ 42 mls/hr IV.SIG UNSCH PRN PRN Reason: SEE LABEL COMMENTS Sodium Phosphate 30 mmol/ (Sodium Chloride) 260 mls @ 42 mls/hr IV.SIG UNSCH PRN PRN Reason: For Phosphorus < 2.5 mg/dL Potassium Chloride (Kcl 40 Meq Premix Inj) 40 meq in 100 mls @ 50 mls/hr IV.SIG Q2H PRN PRN Reason: For Potassium 2.8 - 3.2 mEq/L Dexmedetomidine HCl 200 mcg/ (Sodium Chloride) 50 mls @ 4.73 mls/hr IV.CONT TITRATE PRN; Protocol PRN Reason: Per Protocol Piperacillin/Tazobactam/Dextrose (Zosyn 3.375 Gm Premix) 3.375 gm in 50 mls @ 100 mls/hr IV.SIG Q6H [facility] Last Infusion: 08/13/18 02:48 Dose: Infused Multivitamins 10 ml/ Thiamine HCl 100 mg/ Folic Acid 1 mg/Dextrose/Sodium Chloride 511.2 mls @ 127.8 mls/hr IV.SIG DAILY [facility] Last Infusion: 08/12/18 13:29 Dose: Infused Vancomycin HCl 1,500 mg/ (Sodium Chloride) 515 mls @ 250 mls/hr IV.SIG Q12H [facility] Last Infusion: 08/13/18 06:10 Dose: Infused Fentanyl (Fentanyl 10 Mcg/Ml Premix Drip) 2,500 mcg in 250 mls @ 5 mls/hr IV.SIG TITRATE PRN; Protocol PRN Reason: Per Protocol Last Admin: 08/13/18 08:17 Dose: 250 mcg/hr, 25 mls/hr Labetalol HCl (Trandate Inj) 20 mg IV.PUSH Q4H PRN PRN Reason: SBP>160, DBP>90 Last Admin: 08/12/18 02:06 Dose: 20 mg Lorazepam (Ativan Inj) 2 mg IV.PUSH Q6H@07,13,19,01 PRN PRN Reason: AGITATION SEIZURE LIKE ACTIV Last Admin: 08/13/18 00:49 Dose: 2 mg Magnesium Oxide (Mag-Ox) 800 mg PO UNSCH PRN PRN Reason: For Magnesium 1.2 - 1.6 mg/dL Miscellaneous Information ([facility] Ordered Lab Info) 0 each OTHER ONCE ONE Stop: 08/13/18 16:46 Miscellaneous Medication () 1 each OROPHARYNG 0000,0400,1200,1600 [facility] Last Admin: 08/13/18 05:17 Dose: 1 each Pharmacy Profile Note (Vancomycin Consult Pharmacy) 1 each OTHER UNSCH PRN PRN Reason: Pharmacy to dose Potassium Bicarb/Potassium Chloride (K-Lyte Cl Eff) 50 meq PO UNSCH PRN PRN Reason: For Potassium 3.3 - 3.5 mEq/L Last Admin: 08/12/18 05:22 Dose: 50 meq Potassium Phosphate (K-Phos Original) 2,000 mg PO Q4H PRN PRN Reason: Phosphorus Less Than 2.5 mg/dL Potassium Phosphate (K-Phos Original) 2,000 mg PO UNSCH PRN PRN Reason: SEE LABEL COMMENTS Sodium Chloride (Ns Flush) 2 ml IV.FLUSH BID [facility] Last Admin: 08/12/18 20:22 Dose: Not Given Sodium Chloride (Ns Flush) 2 ml IV.FLUSH PRN PRN PRN Reason: FLUSH AFTER USING IV ACCESS Allergies/Adverse Reactions: Allergies Allergy/AdvReac Type Severity Reaction Status Date / Time No Known Allergies Allergy Verified 08/09/18 09:20 Physical Exam Vital signs: Vital Signs 08/12/18 09:30 08/12/18 10:00 08/12/18 10:30 Temperature Pulse Rate 64 63 63 Respiratory Rate 16 16 16 Blood Pressure 155/87 H 163/93 H 169/94 H Pulse Oximetry 100 100 100 08/12/18 11:00 08/12/18 11:30 08/12/18 11:42 Temperature Pulse Rate 62 62 Respiratory Rate 16 16 16 Blood Pressure 173/97 H 176/98 H Pulse Oximetry 100 100 100 08/12/18 12:00 08/12/18 12:30 08/12/18 13:00 Temperature 98.4 F Pulse Rate 63 63 65 Respiratory Rate 16 16 16 Blood Pressure 166/95 H 166/95 H 160/94 H Pulse Oximetry 100 100 100 08/12/18 13:30 08/12/18 14:00 08/12/18 14:30 Temperature Pulse Rate 78 64 64 Respiratory Rate 32 H 16 16 Blood Pressure 162/86 H 152/87 H 142/82 H Pulse Oximetry 100 100 100 08/12/18 15:00 08/12/18 15:30 08/12/18 16:00 Temperature 98.4 F Pulse Rate 64 62 61 Respiratory Rate 16 16 16 Blood Pressure 137/78 154/85 H 165/92 H Pulse Oximetry 100 100 100 08/12/18 16:30 08/12/18 17:00 08/12/18 17:13 Temperature Pulse Rate 61 64 64 Respiratory Rate 16 16 16 Blood Pressure 173/96 H 136/77 Pulse Oximetry 100 100 100 08/12/18 17:30 08/12/18 18:00 08/12/18 18:30 Temperature Pulse Rate 64 65 65 Respiratory Rate 16 16 5 L Blood Pressure 135/82 141/80 H 147/82 H Pulse Oximetry 100 100 100 08/12/18 19:00 08/12/18 19:30 08/12/18 20:00 Temperature Pulse Rate 65 65 64 Respiratory Rate 0 L 0 L 16 Blood Pressure 148/82 H 146/81 H 138/77 Pulse Oximetry 100 100 100 08/12/18 20:30 08/12/18 21:00 08/12/18 21:30 Temperature 99.2 F Pulse Rate 68 72 72 Respiratory Rate 6 L 16 0 L Blood Pressure 148/81 H 137/76 137/77 Pulse Oximetry 100 100 100 08/12/18 22:00 08/12/18 22:22 08/12/18 22:30 Temperature Pulse Rate 72 72 70 Respiratory Rate 16 16 16 Blood Pressure 135/75 141/80 H Pulse Oximetry 100 100 08/12/18 23:00 08/12/18 23:30 08/13/18 00:00 Temperature 99.0 F Pulse Rate 73 71 75 Respiratory Rate 16 16 16 Blood Pressure 145/82 H 153/82 H 139/76 Pulse Oximetry 100 100 99 08/13/18 00:30 08/13/18 00:36 08/13/18 00:37 Temperature Pulse Rate 77 77 Respiratory Rate 16 16 16 Blood Pressure 140/77 Pulse Oximetry 100 99 08/13/18 01:00 08/13/18 01:30 08/13/18 02:00 Temperature Pulse Rate 77 75 75 Respiratory Rate 16 16 16 Blood Pressure 144/78 H 142/80 H 150/81 H Pulse Oximetry 99 99 100 08/13/18 02:30 08/13/18 03:00 08/13/18 03:30 Temperature Pulse Rate 75 73 72 Respiratory Rate 16 16 16 Blood Pressure 146/81 H 150/88 H 155/87 H Pulse Oximetry 100 100 100 08/13/18 03:33 08/13/18 04:00 08/13/18 04:30 Temperature Pulse Rate 72 71 71 Respiratory Rate 16 16 16 Blood Pressure 147/85 H 151/84 H Pulse Oximetry 100 100 100 08/13/18 05:00 08/13/18 05:30 08/13/18 06:00 Temperature 98.9 F Pulse Rate 74 73 71 Respiratory Rate 16 16 16 Blood Pressure 153/85 H 147/86 H 151/83 H Pulse Oximetry 100 100 100 08/13/18 06:30 08/13/18 07:00 08/13/18 07:30 Temperature Pulse Rate 71 79 77 Respiratory Rate 16 16 16 Blood Pressure 137/77 150/83 H 134/75 Pulse Oximetry 100 99 98 08/13/18 07:39 08/13/18 07:40 08/13/18 07:42 Temperature Pulse Rate 77 78 Respiratory Rate 16 Blood Pressure Pulse Oximetry 100 98 12/26/18 08:00 Temperature 99.4 F Pulse Rate 73 Respiratory Rate 16 Blood Pressure 130/70 Pulse Oximetry 99 Intake & Output 08/12/18 08/13/18 08/13/18 18:59 06:59 18:59 Intake Total 2964.2 / 2964.2 4318 / 4318 450 / 450 Output Total 900 / 900 500 / 500 Balance 2064.2 / 2064.2 3818 / 3818 450 / 450 Weight 97 kg Intake: IV 2964.2 / 2964.2 4318 / 4318 450 / 450 Diprivan 1000 mg/100 ml Inj 1, 300 / 300 300 / 300 100 / 100 000 mg In 100 ml @ 5 MCG/KG/MIN 2.634 mls/hr IV.CONT TITRATE PRN Rx#:[id number] Sodium Bicarbonate 8.4% Inj 150 950 / 950 2000 / 2000 MEQ In D5W Inj 850 ML @ 125 mls/hr IV.CONT .Q8H [facility] Rx#: [id number] Zovirax Inj 700 MG In NS Inj 228 / 228 228 / 228 100 ML @ 114 mls/hr IV.SIG Q8H [facility] Rx#:[id number] Vimpat Inj 100 MG In NS Inj 100 110 / 110 110 / 110 ML @ 110 mls/hr IV.SIG Q12HR [facility] Rx#:[id number] MVI-12 Inj 10 ML Thiamine Inj 511.2 / 511.2 100 MG Folvite Inj 1 MG In D5W- 1/2 NS Inj 500 ML @ 127.8 mls/ hr IV.SIG DAILY [facility] Rx#: [id number] Zosyn 3.375 GM Premix 3.375 gm 150 / 150 100 / 100 In 50 ml @ 100 mls/hr IV.SIG Q6H [facility] Rx#:[id number] KCl 20 mEq Premix Inj 20 meq In 200 / 200 300 / 300 100 / 100 100 ml @ 50 mls/hr IV.SIG Q2H PRN Rx#:[id number] Vancomycin Inj 1,500 MG In NS 515 / 515 1030 / 1030 Inj 500 ML @ 250 mls/hr IV.SIG Q12H [facility] Rx#:[id number] fentaNYL 10 mcg/mL Premix Drip 250 / 250 250 / 250 2,500 mcg In 250 ml @ 50 MCG/HR 5 mls/hr IV.SIG TITRATE PRN Rx #:[id number] Output: Urine 900 / 900 Urine Amount (Catheter) 500 / 500 Condom 500 / 500 Narrative: Intubated limited exam no involuntary movements on propofol drip - Urinary Catheter Management Indwelling Urethral Catheter Cath placed during this visit: yes, but has since been removed by the nurse Reason for continuing: Hourly intake/output Insertion date: 08/09/18 Insertion time: 18:30 Removal date: 08/11/18 Removal time: 09:50 Condom Cath placed during this visit: no Objective Laboratory Results - last 24 hr 08/12/18 08/13/18 22:25 07:32 Sodium 140 Potassium 3.2 L 4.5 D Chloride 103 Carbon Dioxide 28.0 Anion Gap 9 BUN 11 Creatinine 1.56 H Estimated GFR 46 L Random Glucose 76 Calcium 6.9 L* Calcium Adj for Albumin 8.0 L Total Bilirubin 0.9 AST 182 H ALT 150 H Alkaline Phosphatase 100 Total Creatine Kinase Cancelled Total Protein 5.5 L Albumin 2.6 L Microbiology 08/11/18 15:00 Gram Stain - Final Sputum - Endotracheal Sputum Culture - Preliminary Heavy growth normal respiratory sherman at 24 hours 08/11/18 14:29 Aerobic Blood Culture - Preliminary Blood - Peripheral No growth in 1 day Anaerobic Blood Culture - Preliminary No growth in 1 day 08/11/18 14:24 Aerobic Blood Culture - Preliminary Blood - Peripheral No growth in 1 day Anaerobic Blood Culture - Preliminary No growth in 1 day Review/Management - Diagnosis (1) Seizure Code(s): R56.9 - Unspecified convulsions Status: Acute Current Visit: Yes (2) Hypertensive urgency Code(s): I16.0 - Hypertensive urgency Status: Acute Current Visit: Yes (3) Alcohol intoxication Code(s): F10.929 - Alcohol use, unspecified with intoxication, unspecified Status: Acute Current Visit: Yes - Review/Management Plan: Severely hypertensive individual with reduced responsiveness and appeared to have seizure activity with elevated ethanol level ? Alcohol withdrawal suspected. Other consideration would include: toxic- metabolic ? Serotonin syndrome ? Illicit drugs +fever; check csf Apparently was doing heavy drinking past several weeks per RN discussion with the patient's brother next rhabdo MRI brain-no acute lesion nsx following cervical fx Recommendation CSF studies-pending will start seroquel 50mg bid Alcohol withdrawal precautions IV thiamine Scheduled benzo d/w rn No driving, operating any heavy machinery or dangerous machinery, swimming alone for at least 6 months of being seizure, spell free.
[2018-08-13] MEDS: Lacosamide Inj 100 MG in Sodium Chlor 0.9% Inj 100 ML IV.SIG SCH ×2 (09:19→20:46)
[2018-08-13] MEDS: Famotidine 20 MG Tablet NG/OG SCH ×2 (09:19→20:14)
[2018-08-13] MEDS: Multivitamin Inj 10 ML, Thiamine Inj 100 MG, Folic Acid Inj 1 MG in Dextrose 5%/NaCl 0.... IV.SIG SCH (09:19)
[2018-08-13] MEDS: Chlorhexidine 0.12% Oral Kit 15 ML UDC OROPHARYNG SCH ×2 (09:20→20:14)
[2018-08-13 09:45] LABS: Baso % (Auto) 0.4 % (0.0-2.0); Eos # (Auto) 0.1 th/mm3 (0.0-0.4); Eos % (Auto) 2.8 % (0.0-4.0); Hematocrit 33.1 % (39.0-51.0); Hemoglobin 11.2 gm/dL (13.0-17.0); Lymph # (Auto) 0.4 th/mm3 (1.0-4.8); Mean Corpuscular Hemoglobin 32.3 pg (27.0-34.0); Mean Corpuscular Volume 94.9 fL (80.0-100.0); Mean Platelet Volume 7.6 fL (7.0-11.0); Mono # (Auto) 0.4 th/mm3 (0.0-0.9); Mono % (Auto) 9.8 % (0.0-8.0); Neut # (Auto) 3.2 th/mm3 (1.8-7.7); Platelet Count 116 th/mm3 (150-450); Red Blood Count 3.48 mil/mm3 (4.50-5.90); Red Cell Distribution Width 14.2 % (11.6-17.2); White Blood Count 4.1 th/mm3 (4.0-11.0)
--- NOTE | 2018-08-13 10:42 | XR ---
EXAM DATE: 08/13/2018 10:38 AM EST AGE/SEX: 58 years / Male INDICATIONS: Respiratory failure. CLINICAL DATA: This is the patient's subsequent encounter. Patient reports that signs and symptoms h ave been present for 4 - 6 days and indicates a pain score of Nonresponsive. MEDICAL/SURGICAL HISTORY: Non-responsive. Non-responsive. COMPARISON: [facility], CHEST 1V SINGLE AP, 08/11/2018. . FINDINGS: The endotracheal tube and NG tube remain in place. There continue to be patchy infiltrates in both gibran ng villarreal especially along the lung bases. Infiltrates are mildly improved compared to the prior exam ination. The heart size is stable. There is no pneumothorax. The bony structures are stable. CONCLUSION: Mild improvement in the bibasilar pulmonary infiltrates compared to the prior exam. Electronically signed by: Yaron Guerrero MD Board Certified Radiologist 08/13/2018 10:41 AM EST
--- NOTE | 2018-08-13 10:44 | P.PNPL ---
Subjective Interval history: Patient is sedated and intubated. On bicarb drip. Afebrile. Physical Exam Vital signs: Vital Signs 08/12/18 11:00 08/12/18 11:30 08/12/18 11:42 Temperature Pulse Rate 62 62 Respiratory Rate 16 16 16 Blood Pressure 173/97 H 176/98 H Pulse Oximetry 100 100 100 08/12/18 12:00 08/12/18 12:30 08/12/18 13:00 Temperature 98.4 F Pulse Rate 63 63 65 Respiratory Rate 16 16 16 Blood Pressure 166/95 H 166/95 H 160/94 H Pulse Oximetry 100 100 100 08/12/18 13:30 08/12/18 14:00 08/12/18 14:30 Temperature Pulse Rate 78 64 64 Respiratory Rate 32 H 16 16 Blood Pressure 162/86 H 152/87 H 142/82 H Pulse Oximetry 100 100 100 08/12/18 15:00 08/12/18 15:30 08/12/18 16:00 Temperature 98.4 F Pulse Rate 64 62 61 Respiratory Rate 16 16 16 Blood Pressure 137/78 154/85 H 165/92 H Pulse Oximetry 100 100 100 08/12/18 16:30 08/12/18 17:00 08/12/18 17:13 Temperature Pulse Rate 61 64 64 Respiratory Rate 16 16 16 Blood Pressure 173/96 H 136/77 Pulse Oximetry 100 100 100 08/12/18 17:30 08/12/18 18:00 08/12/18 18:30 Temperature Pulse Rate 64 65 65 Respiratory Rate 16 16 5 L Blood Pressure 135/82 141/80 H 147/82 H Pulse Oximetry 100 100 100 08/12/18 19:00 08/12/18 19:30 08/12/18 20:00 Temperature Pulse Rate 65 65 64 Respiratory Rate 0 L 0 L 16 Blood Pressure 148/82 H 146/81 H 138/77 Pulse Oximetry 100 100 100 08/12/18 20:30 08/12/18 21:00 08/12/18 21:30 Temperature 99.2 F Pulse Rate 68 72 72 Respiratory Rate 6 L 16 0 L Blood Pressure 148/81 H 137/76 137/77 Pulse Oximetry 100 100 100 08/12/18 22:00 08/12/18 22:22 08/12/18 22:30 Temperature Pulse Rate 72 72 70 Respiratory Rate 16 16 16 Blood Pressure 135/75 141/80 H Pulse Oximetry 100 100 08/12/18 23:00 08/12/18 23:30 08/13/18 00:00 Temperature 99.0 F Pulse Rate 73 71 75 Respiratory Rate 16 16 16 Blood Pressure 145/82 H 153/82 H 139/76 Pulse Oximetry 100 100 99 08/13/18 00:30 08/13/18 00:36 08/13/18 00:37 Temperature Pulse Rate 77 77 Respiratory Rate 16 16 16 Blood Pressure 140/77 Pulse Oximetry 100 99 08/13/18 01:00 08/13/18 01:30 08/13/18 02:00 Temperature Pulse Rate 77 75 75 Respiratory Rate 16 16 16 Blood Pressure 144/78 H 142/80 H 150/81 H Pulse Oximetry 99 99 100 08/13/18 02:30 08/13/18 03:00 08/13/18 03:30 Temperature Pulse Rate 75 73 72 Respiratory Rate 16 16 16 Blood Pressure 146/81 H 150/88 H 155/87 H Pulse Oximetry 100 100 100 08/13/18 03:33 08/13/18 04:00 08/13/18 04:30 Temperature Pulse Rate 72 71 71 Respiratory Rate 16 16 16 Blood Pressure 147/85 H 151/84 H Pulse Oximetry 100 100 100 08/13/18 05:00 08/13/18 05:30 08/13/18 06:00 Temperature 98.9 F Pulse Rate 74 73 71 Respiratory Rate 16 16 16 Blood Pressure 153/85 H 147/86 H 151/83 H Pulse Oximetry 100 100 100 08/13/18 06:30 08/13/18 07:00 08/13/18 07:30 Temperature Pulse Rate 71 79 77 Respiratory Rate 16 16 16 Blood Pressure 137/77 150/83 H 134/75 Pulse Oximetry 100 99 98 08/13/18 07:39 08/13/18 07:40 08/13/18 07:42 Temperature Pulse Rate 77 78 Respiratory Rate 16 Blood Pressure Pulse Oximetry 100 98 08/13/18 08:00 08/13/18 08:30 08/13/18 09:00 Temperature 99.4 F Pulse Rate 73 72 70 Respiratory Rate 16 16 16 Blood Pressure 130/70 147/81 H 156/88 H Pulse Oximetry 99 100 100 08/13/18 09:38 08/13/18 10:00 Temperature Pulse Rate 110 H 77 Respiratory Rate 26 H 16 Blood Pressure 132/81 Pulse Oximetry 96 99 Intake & Output 08/12/18 08/13/18 08/13/18 18:59 06:59 18:59 Intake Total 2964.2 / 2964.2 4318 / 4318 450 / 450 Output Total 900 / 900 500 / 500 Balance 2064.2 / 2064.2 3818 / 3818 450 / 450 Weight 97 kg Intake: IV 2964.2 / 2964.2 4318 / 4318 450 / 450 Diprivan 1000 mg/100 ml Inj 1, 300 / 300 300 / 300 100 / 100 000 mg In 100 ml @ 5 MCG/KG/MIN 2.634 mls/hr IV.CONT TITRATE PRN Rx#:[id number] Sodium Bicarbonate 8.4% Inj 150 950 / 950 2000 / 2000 MEQ In D5W Inj 850 ML @ 125 mls/hr IV.CONT .Q8H [facility] Rx#: [id number] Zovirax Inj 700 MG In NS Inj 228 / 228 228 / 228 100 ML @ 114 mls/hr IV.SIG Q8H [facility] Rx#:[id number] Vimpat Inj 100 MG In NS Inj 100 110 / 110 110 / 110 ML @ 110 mls/hr IV.SIG Q12HR [facility] Rx#:[id number] MVI-12 Inj 10 ML Thiamine Inj 511.2 / 511.2 100 MG Folvite Inj 1 MG In D5W- 1/2 NS Inj 500 ML @ 127.8 mls/ hr IV.SIG DAILY [facility] Rx#: [id number] Zosyn 3.375 GM Premix 3.375 gm 150 / 150 100 / 100 In 50 ml @ 100 mls/hr IV.SIG Q6H [facility] Rx#:[id number] KCl 20 mEq Premix Inj 20 meq In 200 / 200 300 / 300 100 / 100 100 ml @ 50 mls/hr IV.SIG Q2H PRN Rx#:[id number] Vancomycin Inj 1,500 MG In NS 515 / 515 1030 / 1030 Inj 500 ML @ 250 mls/hr IV.SIG Q12H [facility] Rx#:[id number] fentaNYL 10 mcg/mL Premix Drip 250 / 250 250 / 250 2,500 mcg In 250 ml @ 50 MCG/HR 5 mls/hr IV.SIG TITRATE PRN Rx #:[id number] Output: Urine 900 / 900 Urine Amount (Catheter) 500 / 500 Condom 500 / 500 - Constitutional no acute distress - Routine HEENT Exam Head: Present: normocephalic, atraumatic Eye: Present: EOMI, PERRL, normal accommodation, conjunctivae pink - Routine Neck Exam Present: supple, full ROM, trachea midline - Routine Respiratory Exam Present: patient mechanically ventilated, CTA bilaterally - Routine Cardiovascular Exam Present: RRR, S1, S2 - Routine Abdominal Exam Present: soft, normoactive bowel sounds - Routine Skin Exam Present: intact - Routine Neurological Exam Present: altered mental status - Urinary Catheter Management Indwelling Urethral Catheter Cath placed during this visit: yes, but has since been removed by the nurse Reason for continuing: Hourly intake/output Insertion date: 08/09/18 Insertion time: 18:30 Removal date: 08/11/18 Removal time: 09:50 Condom Cath placed during this visit: no Assessment and Plan - Plan 1. VDRF 2. Aspiration pneumonia. 3. Encephalopathy. 4. Rhabdomyolysis with elevated CK. 5. C6 fracture. 6. Ethanol intoxication. 7. Anemia and thrombocytopenia. Plan Continue with vent support and maintain sats >92%. Bronchodilators, ICU vent bundle. SBT daily as miko. On ACV RR16, TV 550, PEEP:8 and FIO2: 40%. Check CXR/ABG. Monitor neuro status closely, daily sedation vacation. Neuro is following, Awaiting LP. On Acyclovir per Neuro. Continue Thiamine. Abx- on vancomycin and Zosyn. Monitor for signs of infection( fever and WBC). 08/11 sputum culture: Normal resp sherman On bicarb drip monitor CKs. Monitor renal function and electrolyte replacement per protocol. Doppler US LE negative for DVT Echocardiogram showed EF of 50% to 55%. GI and DVT prophylaxis. Continue treatment plan.
[2018-08-13] MEDS: QUEtiapine 25 MG Tablet PO SCH ×2 (10:51→20:14)
[2018-08-13 11:09] LABS: Creatine Kinase 1000 U/L (39-308)
[2018-08-13 11:24] LABS: CKMB Percent 0.1 % (0.0-4.0)
[2018-08-13 12:03] LABS: ABG Base Excess 8.7 mmol/L (-2-2); ABG PCO2 51 mmHg (38-42); ABG PO2 118 mmHg (61-120)
[2018-08-13] MEDS: Sod Chloride 0.9% Inj 1,000 ML IV.CONT SCH ×2 (14:01→23:23)
[2018-08-13] MEDS ORDERED: LORazepam 1 MG Tablet PO PRN (15:40)
[2018-08-13] MEDS ORDERED: Haloperidol Inj 5 MG/ML Ampul IV.PUSH PRN (15:40)
--- NOTE | 2018-08-13 15:46 | P.PNCC ---
Subjective Subjective Remarks/Hospital Course: 08/09: 58-year-old male who was found down in his friend's garage this morning. He has a history of alcohol abuse. He recently sold his house and was staying at a friend's home. Reportedly he was due to fly later today. Patient was brought to the ER by EMS and was noted to have involuntary movements with jerking movements involving upper and lower extremities as well as his head. He received Ativan 3 mg IV and was loaded with Keppra. Initially stroke alert was called. Head CT was negative for any bleed however there was question of C6 fracture. Neurology and neurosurgery were consulted. Patient was loaded with IV Cerebyx and Vimpat by neurology. He had a [place] J collar placed after placing hard cervical collar by neurosurgery. When I evaluated the patient in the ER he was still having involuntary movements which appeared to be episodic with occasional twitchings on his face and nystagmus. This did not appear to be generalized tonic-clonic convulsions however appeared more like an extrapyramidal reaction. I ordered a stat EEG. Patient moving around too much to obtain MRI at this time. His urine tox screen was negative. He was positive for alcohol. Patient nonverbal. His involuntary movements get exaggerated on stimulation. He was reportedly completely normal yesterday. 08/10: Patient had an episode of emesis last night followed by labored breathing. He continued to have involuntary movements. He was intubated and placed on mechanical ventilation. Currently sedated with propofol, orally intubated on mechanical ventilation. Awaiting MRI brain and C-spine. EEG done yesterday did not show any seizure activity. 08/11: Sedated, orally intubated on mechanical ventilation. MRI brain unremarkable. MRI C-spine with hairline C6 fracture with no displacement. 08/12: Remains sedated, orally intubated on mechanical ventilation. Reintubated yesterday for significant hypoxia and respiratory distress with O2 sats dropping to the 70s despite nonrebreather facemask. CT pulmonary angiogram was negative for PE and showed bilateral infiltrates at the bases. 08/13: Remains sedated, orally intubated on mechanical ventilation. On propofol /fentanyl GTT. Starting tube feeds Objective Vital Signs / I&O: Vital Signs 08/12/18 16:00 08/12/18 16:30 08/12/18 17:00 Temperature 98.4 F Pulse Rate 61 61 64 Respiratory Rate 16 16 16 Blood Pressure 165/92 H 173/96 H 136/77 Pulse Oximetry 100 100 100 08/12/18 17:13 08/12/18 17:30 08/12/18 18:00 Temperature Pulse Rate 64 64 65 Respiratory Rate 16 16 16 Blood Pressure 135/82 141/80 H Pulse Oximetry 100 100 100 08/12/18 18:30 08/12/18 19:00 08/12/18 19:30 Temperature Pulse Rate 65 65 65 Respiratory Rate 5 L 0 L 0 L Blood Pressure 147/82 H 148/82 H 146/81 H Pulse Oximetry 100 100 100 08/12/18 20:00 08/12/18 20:30 08/12/18 21:00 Temperature 99.2 F Pulse Rate 64 68 72 Respiratory Rate 16 6 L 16 Blood Pressure 138/77 148/81 H 137/76 Pulse Oximetry 100 100 100 08/12/18 21:30 08/12/18 22:00 08/12/18 22:22 Temperature Pulse Rate 72 72 72 Respiratory Rate 0 L 16 16 Blood Pressure 137/77 135/75 Pulse Oximetry 100 100 08/12/18 22:30 08/12/18 23:00 08/12/18 23:30 Temperature Pulse Rate 70 73 71 Respiratory Rate 16 16 16 Blood Pressure 141/80 H 145/82 H 153/82 H Pulse Oximetry 100 100 100 08/13/18 00:00 08/13/18 00:30 08/13/18 00:36 Temperature 99.0 F Pulse Rate 75 77 77 Respiratory Rate 16 16 16 Blood Pressure 139/76 140/77 Pulse Oximetry 99 100 08/13/18 00:37 08/13/18 01:00 08/13/18 01:30 Temperature Pulse Rate 77 75 Respiratory Rate 16 16 16 Blood Pressure 144/78 H 142/80 H Pulse Oximetry 99 99 99 08/13/18 02:00 08/13/18 02:30 08/13/18 03:00 Temperature Pulse Rate 75 75 73 Respiratory Rate 16 16 16 Blood Pressure 150/81 H 146/81 H 150/88 H Pulse Oximetry 100 100 100 08/13/18 03:30 08/13/18 03:33 08/13/18 04:00 Temperature Pulse Rate 72 72 71 Respiratory Rate 16 16 16 Blood Pressure 155/87 H 147/85 H Pulse Oximetry 100 100 100 08/13/18 04:30 08/13/18 05:00 08/13/18 05:30 Temperature 98.9 F Pulse Rate 71 74 73 Respiratory Rate 16 16 16 Blood Pressure 151/84 H 153/85 H 147/86 H Pulse Oximetry 100 100 100 08/13/18 06:00 08/13/18 06:30 08/13/18 07:00 Temperature Pulse Rate 71 71 79 Respiratory Rate 16 16 16 Blood Pressure 151/83 H 137/77 150/83 H Pulse Oximetry 100 100 99 08/13/18 07:30 08/13/18 07:39 08/13/18 07:40 Temperature Pulse Rate 77 77 Respiratory Rate 16 Blood Pressure 134/75 Pulse Oximetry 98 100 08/13/18 07:42 08/13/18 08:00 08/13/18 08:30 Temperature 99.4 F Pulse Rate 78 73 72 Respiratory Rate 16 16 16 Blood Pressure 130/70 147/81 H Pulse Oximetry 98 99 100 08/13/18 09:00 08/13/18 09:38 08/13/18 10:00 Temperature Pulse Rate 70 110 H 77 Respiratory Rate 16 26 H 16 Blood Pressure 156/88 H 132/81 Pulse Oximetry 100 96 99 08/13/18 10:30 08/13/18 11:00 08/13/18 11:30 Temperature Pulse Rate 81 72 71 Respiratory Rate 16 16 16 Blood Pressure 137/81 145/80 H 135/74 Pulse Oximetry 100 100 100 08/13/18 11:50 08/13/18 12:00 08/13/18 12:30 Temperature 99 F Pulse Rate 70 74 72 Respiratory Rate 16 16 16 Blood Pressure 145/80 H 146/80 H Pulse Oximetry 100 100 100 08/13/18 13:00 08/13/18 13:30 08/13/18 14:00 Temperature Pulse Rate 72 71 72 Respiratory Rate 16 16 16 Blood Pressure 140/77 133/77 136/77 Pulse Oximetry 100 99 100 Intake & Output 08/12/18 08/13/18 08/13/18 18:59 06:59 18:59 Intake Total 2964.2 / 2964.2 4318 / 4318 2485.2 / 2485.2 Output Total 900 / 900 500 / 500 Balance 2064.2 / 2064.2 3818 / 3818 2485.2 / 2485.2 Weight 97 kg Intake: IV 2964.2 / 2964.2 4318 / 4318 2485.2 / 2485.2 Diprivan 1000 mg/100 ml Inj 1, 300 / 300 300 / 300 300 / 300 000 mg In 100 ml @ 5 MCG/KG/MIN 2.634 mls/hr IV.CONT TITRATE PRN Rx#:[id number] Sodium Bicarbonate 8.4% Inj 150 950 / 950 2000 / 2000 1000 / 1000 MEQ In D5W Inj 850 ML @ 125 mls/hr IV.CONT .Q8H SATYA Rx#: [id number] Zovirax Inj 700 MG In NS Inj 228 / 228 228 / 228 114 / 114 100 ML @ 114 mls/hr IV.SIG Q8H SATYA Rx#:[id number] Vimpat Inj 100 MG In NS Inj 100 110 / 110 110 / 110 110 / 110 ML @ 110 mls/hr IV.SIG Q12HR SATYA Rx#:[id number] MVI-12 Inj 10 ML Thiamine Inj 511.2 / 511.2 511.2 / 511.2 100 MG Folvite Inj 1 MG In D5W- 1/2 NS Inj 500 ML @ 127.8 mls/ hr IV.SIG DAILY SATYA Rx#: [id number] Zosyn 3.375 GM Premix 3.375 gm 150 / 150 100 / 100 100 / 100 In 50 ml @ 100 mls/hr IV.SIG Q6H SATYA Rx#:[id number] KCl 20 mEq Premix Inj 20 meq In 200 / 200 300 / 300 100 / 100 100 ml @ 50 mls/hr IV.SIG Q2H PRN Rx#:[id number] Vancomycin Inj 1,500 MG In NS 515 / 515 1030 / 1030 Inj 500 ML @ 250 mls/hr IV.SIG Q12H SATYA Rx#:[id number] fentaNYL 10 mcg/mL Premix Drip 250 / 250 250 / 250 2,500 mcg In 250 ml @ 50 MCG/HR 5 mls/hr IV.SIG TITRATE PRN Rx #:[id number] Output: Urine 900 / 900 Urine Amount (Catheter) 500 / 500 Condom 500 / 500 Result Diagrams: 08/13/18 09:07 08/13/18 07:32 Objective Remarks: HEENT/ Neuro: Sedated, orally intubated, Pallor present, no icterus, tongue/ mucosa moist Neck: No JVD Chest/Pulm: on mech vent, good air entry bilaterally, no wheezing or crackles CVS: S1-S2 regular, no murmur GI/abdomen: soft, nontender, bowel sounds sluggish Extremities: warm bilaterally, no edema Assessment and Plan - Assessment and Plan Plan: 58-year-old male with: Encephalopathy Involuntary movements suspicious for seizures versus extrapyramidal reaction C6 fracture Question of alcohol abuse Suspected alcohol withdrawal Rhabdomyolysis Acute respiratory failure on mechanical ventilation Plan: Neuro: Sedation with propofol, daily sedation vacation. Follow neuro checks. Neurology neurosurgery consulted. EEG done in ER did not reveal any seizure activity with ongoing involuntary movements. MRI brain unremarkable, MRI C-spine nondisplaced C6 fracture, continue [place] J collar for 6 weeks per neurosurgery. Aspirin placed on hold for lumbar puncture. Started thiamine/MVI/folic acid IV in view of history of alcohol abuse Ordered Erich protocol with Ativan as needed for suspected alcohol withdrawal Neurology started acyclovir IV while awaiting lumbar puncture Cardiovascular: Initially was hypertensive on arrival. Nicardipine gtt. if needed. Labetalol as needed. Add Coreg 6.25 mg p.o. twice daily, maintenance IV fluids ordered. Pulmonary: Intubated for airway protection and placed on mechanical ventilation following episode of emesis with question of aspiration on 12 AM. vent bundle, bronchodilators as needed. Tolerated CPAP trial and extubated on 08/11 however about 5 hours following extubation and required reintubation for hypoxic respiratory failure of unclear etiology. CTA negative for PE. Consulted pulmonary for further evaluation of hypoxic respiratory failure GI/liver: Start tube feeds and advance to goal as tolerated. Renal/: IV hydration, strict intake output, monitor and replete electrolytes, follow BUN/creatinine. On bicarb drip in view of rhabdomyolysis. Follow CPK. ID: No antibiotics at this time. Watch for fever/leukocytosis Endocrine: Watch for hyperglycemia, SSI for glycemic control if needed Heme: Follow CBC Prophylaxis: SCDs. heparin 5000 units subcutaneously every 8 hourly, Pepcid for GI prophylaxis Condition critical Time spent on critical care excluding procedures 30 minutes
[2018-08-13] MEDS: Carvedilol 6.25 MG Tablet PO SCH (16:35)
[2018-08-13] MEDS ORDERED: Pharmacy Ordered Lab Info OTHER ONE (16:45)
[2018-08-13] MEDS ORDERED: Calcium Gluconate Inj 2 GM in Sodium Chlor 0.9% Inj 100 ML IV.SIG ONE (17:00)
[2018-08-13] MEDS ORDERED: chlordiazePOXIDE 25 MG Capsule PO SCH (21:00)
[2018-08-14] MEDS: Oral Hygiene Kit OROPHARYNG SCH ×5 (00:40→23:27)
[2018-08-14] MEDS: fentaNYL 10 mcg/mL Premix Drip 2,500 MCG/250 ML BAG IV.SIG PRN ×3 (03:02→22:12)
[2018-08-14] MEDS: Propofol 1000 mg/100 ml Inj 1,000 MG/100 ML BOTTLE IV.CONT PRN ×5 (03:02→20:23)
[2018-08-14] MEDS: Piperacil/Tazo 3.375 GM Premix 3.375 GM/50 ML PIGGYBACK IV.SIG SCH ×4 (03:04→20:11)
[2018-08-14] MEDS ORDERED: Pharmacy Ordered Lab Info OTHER ONE (04:45)
[2018-08-14 05:15] LABS: Albumin 2.2 g/dL (3.4-5.0); Carbon Dioxide 28.7 meq/L (21.0-32.0); Potassium 3.3 meq/L (3.5-5.1); Total Protein 5.5 g/dL (6.4-8.2); Vancomycin,Trough 33.6 mcg/mL (5.0-10.0)
[2018-08-14] MEDS: Vancomycin Inj 1,500 MG in Sodium Chlor 0.9% Inj 500 ML IV.SIG SCH (05:20)
[2018-08-14] MEDS: Acyclovir Inj 700 MG in Sodium Chlor 0.9% Inj 100 ML IV.SIG SCH ×3 (05:20→22:15)
--- NOTE | 2018-08-14 07:41 | P.PNCC ---
Subjective Subjective Remarks/Hospital Course: 08/09: 58-year-old male who was found down in his friend's garage this morning. He has a history of alcohol abuse. He recently sold his house and was staying at a friend's home. Reportedly he was due to fly later today. Patient was brought to the ER by EMS and was noted to have involuntary movements with jerking movements involving upper and lower extremities as well as his head. He received Ativan 3 mg IV and was loaded with Keppra. Initially stroke alert was called. Head CT was negative for any bleed however there was question of C6 fracture. Neurology and neurosurgery were consulted. Patient was loaded with IV Cerebyx and Vimpat by neurology. He had a [place] J collar placed after placing hard cervical collar by neurosurgery. When I evaluated the patient in the ER he was still having involuntary movements which appeared to be episodic with occasional twitchings on his face and nystagmus. This did not appear to be generalized tonic-clonic convulsions however appeared more like an extrapyramidal reaction. I ordered a stat EEG. Patient moving around too much to obtain MRI at this time. His urine tox screen was negative. He was positive for alcohol. Patient nonverbal. His involuntary movements get exaggerated on stimulation. He was reportedly completely normal yesterday. 08/10: Patient had an episode of emesis last night followed by labored breathing. He continued to have involuntary movements. He was intubated and placed on mechanical ventilation. Currently sedated with propofol, orally intubated on mechanical ventilation. Awaiting MRI brain and C-spine. EEG done yesterday did not show any seizure activity. 08/11: Sedated, orally intubated on mechanical ventilation. MRI brain unremarkable. MRI C-spine with hairline C6 fracture with no displacement. 08/12: Remains sedated, orally intubated on mechanical ventilation. Reintubated yesterday for significant hypoxia and respiratory distress with O2 sats dropping to the 70s despite nonrebreather facemask. CT pulmonary angiogram was negative for PE and showed bilateral infiltrates at the bases. 08/13: Remains sedated, orally intubated on mechanical ventilation. On propofol /fentanyl GTT. Starting tube feeds SUBJECTIVE: 08/04: T-max 99.4. Currently 98.3. Scheduled for IR for lumbar puncture today. Patient acute injury. Patient is on vancomycin, acyclovir and did receive IV contrast recently. Renal ultrasound ordered. Urine eosinophils, sodium and creatinine ordered. Arousable and does follow commands on the ventilator. Breakthrough agitation/involuntary systemic movements noted Objective Vital Signs / I&O: Vital Signs 08/13/18 07:42 08/13/18 08:00 08/13/18 08:30 Temperature 99.4 F Pulse Rate 78 73 72 Respiratory Rate 16 16 16 Blood Pressure 130/70 147/81 H Pulse Oximetry 98 99 100 08/13/18 09:00 08/13/18 09:38 08/13/18 10:00 Temperature Pulse Rate 70 110 H 77 Respiratory Rate 16 26 H 16 Blood Pressure 156/88 H 132/81 Pulse Oximetry 100 96 99 08/13/18 10:30 08/13/18 11:00 08/13/18 11:30 Temperature Pulse Rate 81 72 71 Respiratory Rate 16 16 16 Blood Pressure 137/81 145/80 H 135/74 Pulse Oximetry 100 100 100 08/13/18 11:50 08/13/18 12:00 08/13/18 12:30 Temperature 99 F Pulse Rate 70 74 72 Respiratory Rate 16 16 16 Blood Pressure 145/80 H 146/80 H Pulse Oximetry 100 100 100 08/13/18 13:00 08/13/18 13:30 08/13/18 14:00 Temperature Pulse Rate 72 71 72 Respiratory Rate 16 16 16 Blood Pressure 140/77 133/77 136/77 Pulse Oximetry 100 99 100 08/13/18 14:30 08/13/18 15:00 08/13/18 15:30 Temperature Pulse Rate 72 124 H 137 H Respiratory Rate 16 21 16 Blood Pressure 133/71 169/79 H 144/75 H Pulse Oximetry 99 97 96 08/13/18 16:00 08/13/18 16:30 08/13/18 17:00 Temperature 99.4 F Pulse Rate 74 73 74 Respiratory Rate 16 16 16 Blood Pressure 125/67 127/70 146/75 H Pulse Oximetry 97 99 100 08/13/18 17:10 08/13/18 17:30 08/13/18 18:00 Temperature Pulse Rate 74 122 H 75 Respiratory Rate 16 17 16 Blood Pressure 156/79 H 159/86 H Pulse Oximetry 100 100 100 08/13/18 18:30 08/13/18 19:00 08/13/18 19:30 Temperature Pulse Rate 74 73 72 Respiratory Rate 16 16 16 Blood Pressure 144/77 H 149/77 H 146/76 H Pulse Oximetry 99 99 99 08/13/18 20:00 08/13/18 20:30 08/13/18 20:40 Temperature Pulse Rate 74 71 71 Respiratory Rate 16 16 16 Blood Pressure 133/67 134/71 Pulse Oximetry 98 99 08/13/18 20:41 08/13/18 21:00 08/13/18 21:30 Temperature Pulse Rate 71 71 Respiratory Rate 16 16 17 Blood Pressure 137/73 147/79 H Pulse Oximetry 99 99 100 08/13/18 22:00 08/13/18 22:30 08/13/18 23:00 Temperature Pulse Rate 73 73 87 Respiratory Rate 16 16 24 Blood Pressure 124/64 141/75 H Pulse Oximetry 99 98 97 08/13/18 23:30 08/13/18 23:56 08/14/18 00:00 Temperature 99.3 F Pulse Rate 73 71 70 Respiratory Rate 16 16 16 Blood Pressure 124/64 123/65 Pulse Oximetry 97 98 08/14/18 00:30 08/14/18 01:00 08/14/18 01:30 Temperature Pulse Rate 84 74 70 Respiratory Rate 17 16 16 Blood Pressure 166/83 H 126/68 119/63 Pulse Oximetry 100 97 98 08/14/18 02:00 08/14/18 02:30 08/14/18 03:00 Temperature Pulse Rate 80 70 71 Respiratory Rate 16 16 16 Blood Pressure 146/74 H 141/73 H 148/76 H Pulse Oximetry 96 100 99 08/14/18 03:30 08/14/18 04:00 08/14/18 04:23 Temperature Pulse Rate 68 68 87 Respiratory Rate 16 16 25 H Blood Pressure 124/63 139/73 Pulse Oximetry 98 99 08/14/18 04:24 08/14/18 04:30 08/14/18 05:00 Temperature Pulse Rate 85 77 Respiratory Rate 20 18 16 Blood Pressure 146/71 H 105/57 L Pulse Oximetry 96 97 98 08/14/18 05:30 08/14/18 06:00 Temperature Pulse Rate 70 68 Respiratory Rate 16 16 Blood Pressure 102/58 L 101/58 L Pulse Oximetry 97 98 Intake & Output 08/13/18 08/14/18 08/14/18 18:59 06:59 18:59 Intake Total 3470.2 / 3470.2 2023 / 2023 Output Total 350 / 350 1150 / 1150 Balance 3120.2 / 3120.2 874 / 874 Weight 102.7 kg Intake: IV 3470.2 / 3470.2 187 / 1874 Diprivan 1000 mg/100 ml Inj 1, 400 / 400 300 / 300 000 mg In 100 ml @ 5 MCG/KG/MIN 2.634 mls/hr IV.CONT TITRATE PRN Rx#:[id number] NS Inj 1,000 ML @ 100 mls/hr IV 1000 / 1000 .CONT .Q10H SATYA Rx#:[id number] Sodium Bicarbonate 8.4% Inj 150 1000 / 1000 MEQ In D5W Inj 850 ML @ 125 mls/hr IV.CONT .Q8H SATYA Rx#: [id number] Zovirax Inj 700 MG In NS Inj 114 / 114 114 / 114 100 ML @ 114 mls/hr IV.SIG Q8H SATYA Rx#:[id number] Calcium Gluconate Inj 2 GM In 120 / 120 NS Inj 100 ML @ 120 mls/hr IV. SIG ONCE ONE Rx#:[id number] Vimpat Inj 100 MG In NS Inj 100 110 / 110 110 / 110 ML @ 110 mls/hr IV.SIG Q12HR SATYA Rx#:[id number] MVI-12 Inj 10 ML Thiamine Inj 511.2 / 511.2 100 MG Folvite Inj 1 MG In D5W- 1/2 NS Inj 500 ML @ 127.8 mls/ hr IV.SIG DAILY SATYA Rx#: [id number] Zosyn 3.375 GM Premix 3.375 gm 100 / 100 100 / 100 In 50 ml @ 100 mls/hr IV.SIG Q6H SATYA Rx#:[id number] KCl 20 mEq Premix Inj 20 meq In 100 / 100 100 ml @ 50 mls/hr IV.SIG Q2H PRN Rx#:[id number] Vancomycin Inj 1,500 MG In NS 515 / 515 Inj 500 ML @ 250 mls/hr IV.SIG Q12H SATYA Rx#:[id number] fentaNYL 10 mcg/mL Premix Drip 500 / 500 250 / 250 2,500 mcg In 250 ml @ 50 MCG/HR 5 mls/hr IV.SIG TITRATE PRN Rx #:[id number] Oral 0 / 0 Tube Irrigant 150 / 150 Output: Urine 300 / 300 Urine Amount (Catheter) 250 / 250 750 / 750 Condom 250 / 250 750 / 750 Gastric Drainage 100 / 100 100 / 100 Orogastric Tube 100 / 100 100 / 100 Other: # Bowel Movements 0 Result Diagrams: 08/13/18 09:07 08/14/18 04:33 Other Results: Microbiology 08/11/18 15:00 Sputum - Endotracheal Gram Stain - Final 08/11/18 15:00 Sputum - Endotracheal Sputum Culture - Final Heavy growth normal respiratory sherman 08/11/18 14:29 Blood - Peripheral Aerobic Blood Culture - Preliminary No growth in 2 days 08/11/18 14:29 Blood - Peripheral Anaerobic Blood Culture - Preliminary No growth in 2 days 08/11/18 14:24 Blood - Peripheral Aerobic Blood Culture - Preliminary No growth in 2 days 08/11/18 14:24 Blood - Peripheral Anaerobic Blood Culture - Preliminary No growth in 2 days 08/09/18 11:00 Catheterized Urine Urine Culture - Final No growth in 48 hours Imaging: Head CT 08/09/18 09:20 CONCLUSION: 1. No acute intracranial abnormality is seen. 2. Mild widening of the cortical sulci which could suggest some atrophy. Report was called by [Dr. Dutton to at 9:49 AM. ] Chest X-Ray 08/09/18 09:21 CONCLUSION: No acute cardiopulmonary process. Cervical Spine CT 08/09/18 09:23 CONCLUSION: 1. Fracturing through anterior flowing spurs at the anterior C6 level with the fracture extending into the anterior inferior left lateral aspect of the C6 vertebral body. Empty displacement is not seen. No other possible fractures are seen. 2. 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 3. Degenerative change. Head CTA 08/09/18 09:28 CONCLUSION: Negative CTA. Report was called by [Dr. Dutton to Dr. Faustin. A message was left on the voicemail. ] Neck CTA 08/09/18 09:28 CONCLUSION: Negative CTA of the neck. Cervical Spine MRI 08/10/18 00:00 CONCLUSION: 1. Fracturing through the prominent flowing spurs at the C6 level and extending into the anterior inferior aspect of C6 vertebral body without displacement. Minimal edema seen around the fracture site. 2. Prominent spurring extending from C4 to into the thoracic spine consistent with DISH. 3. Mild central disc protrusion at the C3-C4 level. 4. Mild disc protrusion with the apex at the left lateral recess region at the C5-C6 level. 5. Neural foraminal narrowing at the C3-C4 and C5-C6 levels. Chest X-Ray 08/10/18 00:00 CONCLUSION: ET tube in good position. Lungs are grossly clear. Head MRI 08/10/18 00:00 CONCLUSION: 1. No acute intracranial abnormality. 2. Mild atrophy. Lumbar Spine CT 08/10/18 00:00 CONCLUSION: 1. No acute abnormality seen. 2. Prominent spur seen throughout the thoracic and lumbar spine likely from DISH. 3. Mild disc bulges at the L3-L4 and L4-L5 levels. 4. Lower lumbar facet hypertrophy. Thoracic Spine CT 08/10/18 00:00 CONCLUSION: 1. No fracture is seen. 2. Prominent spurring seen throughout the thoracic spine but be secondary to DISH. 3. Subpleural areas of consolidation or atelectasis at the posterior lower lungs. Chest CTA 08/11/18 00:00 CONCLUSION: 1. No evidence of any pulmonary embolism. 2. There are bilateral infiltrates predominantly in the posterior mid to lower lung villarreal. 3. 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 Chest X-Ray 08/11/18 13:29 CONCLUSION: Increasing bibasal infiltrates. Venous Doppler Study 08/12/18 00:00 CONCLUSION: 1. The study is negative for bilateral lower extremity deep venous thrombosis. Chest X-Ray 08/13/18 10:17 CONCLUSION: Mild improvement in the bibasilar pulmonary infiltrates compared to the prior exam. Objective Remarks: GENERAL: 58-year-old male currently orotracheally intubated SKIN: Warm and dry. No rash HEAD: Atraumatic. Normocephalic. EYES: Pupils equal and round. No scleral icterus. No injection or drainage. ENT: No nasal bleeding or discharge. Mucous membranes pink and moist. NECK: Trachea midline. No JVD. CARDIOVASCULAR: Regular rate and rhythm. S1, S2. No S4. No murmur RESPIRATORY: No accessory muscle use. Clear to auscultation. Breath sounds equal bilaterally. GASTROINTESTINAL: Abdomen soft, non-tender, nondistended. Hypoactive bowel sounds are appreciated MUSCULOSKELETAL: Extremities without significant peripheral edema. No obvious deformities. NEUROLOGICAL: Awake and alert. Occasional fine tremor type movements resolved. Follows commands off sedation. Extremely agitated at times. Moves all 4 extremities spontaneously and to command. Positive cough and gag Assessment and Plan - Assessment and Plan Plan: Neuro/Psych: Acute toxic metabolic encephalopathy Involuntary movements -EEG 08/09- for epileptiform activity Anterior C6 fracture -[place] J collar times 6 weeks EtOH abuse/withdrawal. Level 114 admission Currently on propofol at 50 william grams per kilogram per minute/fentanyl drip at 250 william grams an hour for sedation/analgesia while intubated Dexmedetomidine drip added 08/14 for weaning Follow neuro checks. Neurology neurosurgery consulted. EEG done in ER did not reveal any seizure activity with ongoing involuntary movements. MRI brain unremarkable, MRI C-spine nondisplaced C6 fracture, continue [place] J collar for 6 weeks per neurosurgery. Aspirin placed on hold for lumbar puncture. Currently on lacosamide 100 mg IV twice daily per neurology Started thiamine/MVI/folic acid daily and history of EtOH abuse Ordered CIDC protocol with lorazepam as needed for suspected alcohol withdrawal Currently on chlordiazepoxide 25 mg mg twice daily and quetiapine 50 mg twice daily Neurology started acyclovir IV while awaiting lumbar puncture Cardiovascular: Hypertensive emergency Elevated cholesterol/total Elevated HDL Rhabdomyolysis downtrending CPK to 1000 Initially was hypertensive on arrival. Hydralazine and labetalol as needed. Add carvedilol 6.25 mg p.o. twice daily Troponin 0.04 Pulmonary: Acute hypoxic hypercapnic respiratory failure Intubated for airway protection and placed on mechanical ventilation following episode of emesis with question of aspiration on 08/10 AM. PRVC ventilation /08/23/29 vent bundle, Albuterol/ipratropium aerosols every 4 hours with albuterol aerosols every 2 hours as needed dyspnea tolerated CPAP trial and extubated on 08/11 however about 5 hours following extubation and required reintubation for hypoxic respiratory failure of unclear etiology. CT pulmonary angiogram negative for PE but possible right subclavian thrombus. Check upper extremity Dopplers today.. Consulted pulmonary for further evaluation of hypoxic respiratory failure Chest x-ray in a.m. 08/15 GI/liver: Elevated transaminases downward trending Hypoalbuminemia with moderate protein calorie malnutrition Start tube feeds with Nepro goal 50 cc an hour and advance to goal as tolerated. Famotidine 20 mg daily for GI prophylaxis Docusate sodium/senna 1 tablet twice daily for bowel regimen. Added polyethylene glycol 17 g twice daily and lactulose 30 cc twice daily Check hepatitis panel FEN/renal/: Acute kidney injury Acute hypokalemia IV hydration, strict intake output, monitor and replete electrolytes, follow BUN /creatinine. Bicarbonate drip discontinued 08/13. Currently on normal saline at 100 cc an hour. Free water 200 cc every 6 hours Potassium chloride 25 mEq by tube x1 now. Recheck in a.m. with magnesium Avoid nephrotoxic medications. Discontinue vancomycin. Discontinue acyclovir if HSV negative. ID: Currently on vancomycin, piperacillin/tazobactam and acyclovir. Watch for fever /leukocytosis Blood cultures x21 10/10 no growth today. Sputum 08/11 no growth to date Number puncture with IR today 08/14 Endocrine: Watch for hyperglycemia, SSI for glycemic control with aspart insulin/low regimen every 6 hours Check TSH Heme: Macrocytic anemia thrombocytopenia Possible right subclavian occlusion Follow CBC. No indication for transfusion of blood products at this time Check Dopplers bilateral upper kidneys. Systemic anticoagulation if indicated MSK: Elevated BMI Diffuse idiopathic skeletal hyperostosis Weight loss encouraged PT evaluate and treat Prophylaxis: SCDs. heparin 5000 units subcutaneously every 8 hourly, Pepcid for GI prophylaxis Condition critical Time spent on critical care excluding procedures 30 minutes Code Status: Full code Discussed Condition With: Patient. Care plan discussed and all questions answered.
[2018-08-14] MEDS ORDERED: Potassium Chloride 25 MEQ Effervescent Tablet PO ONE (07:56)
[2018-08-14] MEDS: Folic Acid 1 MG Tablet PO SCH (08:11)
[2018-08-14] MEDS: Senna/Docusate Sodium 8.6/50 MG Tablet PO SCH ×2 (08:11→20:11)
[2018-08-14] MEDS: QUEtiapine 25 MG Tablet PO SCH ×2 (08:11→20:11)
[2018-08-14] MEDS: Carvedilol 6.25 MG Tablet PO SCH ×2 (08:11→20:11)
[2018-08-14] MEDS: chlordiazePOXIDE 25 MG Capsule PO SCH ×2 (08:11→20:12)
[2018-08-14] MEDS: Chlorhexidine 0.12% Oral Kit 15 ML UDC OROPHARYNG SCH ×2 (08:12→19:57)
[2018-08-14] MEDS: Polyethylene Glycol 3350 17 GM Packet PO SCH ×2 (08:14→20:11)
[2018-08-14] MEDS: Multivitamin Inj 10 ML, Thiamine Inj 100 MG, Folic Acid Inj 1 MG in Dextrose 5%/NaCl 0.... IV.SIG SCH (08:14)
[2018-08-14] MEDS: Lacosamide Inj 100 MG in Sodium Chlor 0.9% Inj 100 ML IV.SIG SCH ×2 (09:03→20:13)
[2018-08-14] MEDS: Sod Chloride 0.9% Inj 1,000 ML IV.CONT SCH ×2 (09:03→19:31)
[2018-08-14 09:51] LABS: Hepatitits B Surface Antigen Nonreactive (Nonreactive)
--- NOTE | 2018-08-14 10:11 | P.PNNEU ---
Subjective Subjective Comments: no acute events Active Medications: Active Medications Albuterol (Duoneb Neb ([facility])) 1 ampul NEB Q4HR NEB [facility] Last Admin: 08/14/18 07:45 Dose: 1 ampul Albuterol (Albuterol Neb (Prn)) 2.5 mg NEB Q2HR NEB PRN PRN Reason: DYSPNEA Artificial Tears (Tears Naturale Opth Drops) 1 drop EACH EYE Q8H [facility] Aspirin (Aspirin Supp) 300 mg RECTAL DAILY [facility] Last Admin: 08/10/18 08:01 Dose: 300 mg Carvedilol (Coreg) 6.25 mg PO BID [facility] Last Admin: 08/14/18 08:11 Dose: 6.25 mg Chlordiazepoxide (Librium) 25 mg PO BID [facility] Last Admin: 08/14/18 08:11 Dose: 25 mg Chlorhexidine Gluconate (Peridex 0.12% Oral Kit) 15 ml OROPHARYNG BID@0800, 2000 [facility] Last Admin: 08/14/18 08:12 Dose: 15 ml Dextrose (D50w Vial) 50 ml IV.PUSH UNSCH PRN PRN Reason: PER HYPOGLYCEMIA PROTOCOL Famotidine (Pepcid) 20 mg NG/OG HS [facility] Flumazenil (Romazecon Inj) 0.2 mg IV.PUSH Q1M PRN PRN Reason: OVERSEDATION Folic Acid (Folic Acid) 1 mg PO DAILY [facility] Last Admin: 08/14/18 08:11 Dose: 1 mg Glucagon (Glucagon Inj) 1 mg OTHER UNSCH PRN PRN Reason: for Hypoglycemia Protocol Haloperidol Lactate (Haldol Inj) 1 mg IV.PUSH Q15M PRN PRN Reason: for severe agitation Heparin Sodium (Porcine) (Heparin Inj) 5,000 units SQ Q8H [facility] Last Admin: 08/10/18 12:57 Dose: Not Given Hydralazine HCl (Apresoline Inj) 10 mg IV.PUSH Q1H PRN PRN Reason: SBP >165 Nicardipine HCl 25 mg/ Sodium (Chloride) 250 mls @ 50 mls/hr IV.CONT TITRATE PRN; Protocol PRN Reason: Per Protocol Last Titration: 08/11/18 10:44 Dose: Infused Lacosamide 100 mg/ Sodium (Chloride) 110 mls @ 110 mls/hr IV.SIG Q12HR [facility] Last Admin: 08/14/18 09:03 Dose: 110 mls/hr Propofol (Diprivan 1000 Mg/100 Ml Inj) 1,000 mg in 100 mls @ 2.634 mls/hr IV.CONT TITRATE PRN; Protocol PRN Reason: Per Protocol Last Admin: 08/14/18 03:02 Dose: 50 mcg/kg/min, 26.34 mls/hr Acyclovir Sodium 700 mg/ (Sodium Chloride) 114 mls @ 114 mls/hr IV.SIG Q8H [facility] Last Admin: 08/14/18 05:20 Dose: 114 mls/hr Piperacillin/Tazobactam/Dextrose (Zosyn 3.375 Gm Premix) 3.375 gm in 50 mls @ 100 mls/hr IV.SIG Q6H [facility] Last Infusion: 08/14/18 08:45 Dose: Infused Multivitamins 10 ml/ Thiamine HCl 100 mg/ Folic Acid 1 mg/Dextrose/Sodium Chloride 511.2 mls @ 127.8 mls/hr IV.SIG DAILY [facility] Last Admin: 08/14/18 08:14 Dose: 127.8 mls/hr Fentanyl (Fentanyl 10 Mcg/Ml Premix Drip) 2,500 mcg in 250 mls @ 5 mls/hr IV.SIG TITRATE PRN; Protocol PRN Reason: Per Protocol Last Admin: 08/14/18 03:02 Dose: 250 mcg/hr, 25 mls/hr Sodium Chloride (Ns Inj) 1,000 mls @ 100 mls/hr IV.CONT .Q10H [facility] Last Admin: 08/14/18 09:03 Dose: 100 mls/hr Dexmedetomidine HCl 200 mcg/ (Sodium Chloride) 50 mls @ 5.13 mls/hr IV.CONT TITRATE PRN; Protocol PRN Reason: Per Protocol Labetalol HCl (Trandate Inj) 10 mg IV.PUSH Q1H PRN PRN Reason: Sbp>160, Dbp>90 HR > 65 Lactulose (Lactulose Liq) 30 ml PO BID [facility] Last Admin: 08/14/18 08:11 Dose: 30 ml Lorazepam (Ativan Inj) 2 mg IV.PUSH Q6H@07,13,19,01 PRN PRN Reason: AGITATION SEIZURE LIKE ACTIV Last Admin: 08/13/18 15:42 Dose: 2 mg Lorazepam (Ativan) 1 mg PO Q4H PRN PRN Reason: for CIWA 8-10 Lorazepam (Ativan) 2 mg PO Q2H PRN PRN Reason: for CIWA 11-14 Lorazepam (Ativan Inj) 2 mg IV.PUSH Q1H PRN PRN Reason: for CIWA 15-20 Lorazepam (Ativan Inj) 2 mg IV.PUSH Q15M PRN PRN Reason: for CIWA > 20 Lorazepam (Ativan Inj) 1 mg IV.PUSH Q4H PRN PRN Reason: for CIWA 8-10 Lorazepam (Ativan Inj) 2 mg IV.PUSH Q2H PRN PRN Reason: for CIWA 11-14 Miscellaneous Medication () 1 each OROPHARYNG 0000,0400,1200,1600 [facility] Last Admin: 08/14/18 05:25 Dose: 1 each Polyethylene Glycol (Miralax) 17 gm PO BID [facility] Last Admin: 08/14/18 08:14 Dose: 17 gm Quetiapine Fumarate (Seroquel) 50 mg PO BID [facility] Last Admin: 08/14/18 08:11 Dose: 50 mg Senna/Docusate Sodium (Maria A-Colace) 1 tab PO BID [facility] Last Admin: 08/14/18 08:11 Dose: 1 tab Sodium Chloride (Ns Flush) 2 ml IV.FLUSH BID [facility] Last Admin: 08/14/18 08:12 Dose: 2 ml Sodium Chloride (Ns Flush) 2 ml IV.FLUSH PRN PRN PRN Reason: FLUSH AFTER USING IV ACCESS Sterile Water (Free Water) 200 ml G-TUBE Q6HR [facility] Thiamine HCl (Vitamin B1) 100 mg PO BID [facility] Last Admin: 08/14/18 08:11 Dose: 100 mg Allergies/Adverse Reactions: Allergies Allergy/AdvReac Type Severity Reaction Status Date / Time No Known Allergies Allergy Verified 08/09/18 09:20 Physical Exam Vital signs: Vital Signs 08/13/18 10:30 08/13/18 11:00 08/13/18 11:30 Temperature Pulse Rate 81 72 71 Respiratory Rate 16 16 16 Blood Pressure 137/81 145/80 H 135/74 Pulse Oximetry 100 100 100 08/13/18 11:50 08/13/18 12:00 08/13/18 12:30 Temperature 99 F Pulse Rate 70 74 72 Respiratory Rate 16 16 16 Blood Pressure 145/80 H 146/80 H Pulse Oximetry 100 100 100 12/26/18 13:00 08/13/18 13:30 08/13/18 14:00 Temperature Pulse Rate 72 71 72 Respiratory Rate 16 16 16 Blood Pressure 140/77 133/77 136/77 Pulse Oximetry 100 99 100 08/13/18 14:30 08/13/18 15:00 08/13/18 15:30 Temperature Pulse Rate 72 124 H 137 H Respiratory Rate 16 21 16 Blood Pressure 133/71 169/79 H 144/75 H Pulse Oximetry 99 97 96 08/13/18 16:00 08/13/18 16:30 08/13/18 17:00 Temperature 99.4 F Pulse Rate 74 73 74 Respiratory Rate 16 16 16 Blood Pressure 125/67 127/70 146/75 H Pulse Oximetry 97 99 100 08/13/18 17:10 08/13/18 17:30 08/13/18 18:00 Temperature Pulse Rate 74 122 H 75 Respiratory Rate 16 17 16 Blood Pressure 156/79 H 159/86 H Pulse Oximetry 100 100 100 08/13/18 18:30 08/13/18 19:00 08/13/18 19:30 Temperature Pulse Rate 74 73 72 Respiratory Rate 16 16 16 Blood Pressure 144/77 H 149/77 H 146/76 H Pulse Oximetry 99 99 99 08/13/18 20:00 08/13/18 20:30 08/13/18 20:40 Temperature Pulse Rate 74 71 71 Respiratory Rate 16 16 16 Blood Pressure 133/67 134/71 Pulse Oximetry 98 99 08/13/18 20:41 08/13/18 21:00 08/13/18 21:30 Temperature Pulse Rate 71 71 Respiratory Rate 16 16 17 Blood Pressure 137/73 147/79 H Pulse Oximetry 99 99 100 08/13/18 22:00 08/13/18 22:30 08/13/18 23:00 Temperature Pulse Rate 73 73 87 Respiratory Rate 16 16 24 Blood Pressure 124/64 141/75 H Pulse Oximetry 99 98 97 08/13/18 23:30 08/13/18 23:56 08/14/18 00:00 Temperature 99.3 F Pulse Rate 73 71 70 Respiratory Rate 16 16 16 Blood Pressure 124/64 123/65 Pulse Oximetry 97 98 08/14/18 00:30 08/14/18 01:00 12/27/18 01:30 Temperature Pulse Rate 84 74 70 Respiratory Rate 17 16 16 Blood Pressure 166/83 H 126/68 119/63 Pulse Oximetry 100 97 98 08/14/18 02:00 08/14/18 02:30 08/14/18 03:00 Temperature Pulse Rate 80 70 71 Respiratory Rate 16 16 16 Blood Pressure 146/74 H 141/73 H 148/76 H Pulse Oximetry 96 100 99 08/14/18 03:30 08/14/18 04:00 08/14/18 04:23 Temperature Pulse Rate 68 68 87 Respiratory Rate 16 16 25 H Blood Pressure 124/63 139/73 Pulse Oximetry 98 99 08/14/18 04:24 08/14/18 04:30 08/14/18 05:00 Temperature Pulse Rate 85 77 Respiratory Rate 20 18 16 Blood Pressure 146/71 H 105/57 L Pulse Oximetry 96 97 98 08/14/18 05:30 08/14/18 06:00 08/14/18 06:30 Temperature Pulse Rate 70 68 69 Respiratory Rate 16 16 16 Blood Pressure 102/58 L 101/58 L 109/60 Pulse Oximetry 97 98 98 08/14/18 07:00 08/14/18 07:30 08/14/18 07:45 Temperature Pulse Rate 81 72 81 Respiratory Rate 16 16 19 Blood Pressure 142/69 H 128/66 Pulse Oximetry 100 100 100 08/14/18 08:00 08/14/18 08:30 08/14/18 09:00 Temperature 98.5 F Pulse Rate 79 91 H 79 Respiratory Rate 19 19 16 Blood Pressure 144/71 H 126/62 103/57 L Pulse Oximetry 90 L 96 96 Intake & Output 08/13/18 08/14/18 08/14/18 18:59 06:59 18:59 Intake Total 3470.2 / 3470.2 2023 / 2023 1439 / 1439 Output Total 350 / 350 1150 / 1150 Balance 3120.2 / 3120.2 874 / 874 1439 / 1439 Weight 102.7 kg Intake: IV 3470.2 / 3470.2 1874 / 1874 1439 / 1439 Diprivan 1000 mg/100 ml Inj 1, 400 / 400 300 / 300 000 mg In 100 ml @ 5 MCG/KG/MIN 2.634 mls/hr IV.CONT TITRATE PRN Rx#:[id number] NS Inj 1,000 ML @ 100 mls/hr IV 1000 / 1000 1000 / 1000 .CONT .Q10H [facility] Rx#:[id number] Sodium Bicarbonate 8.4% Inj 150 1000 / 1000 MEQ In D5W Inj 850 ML @ 125 mls/hr IV.CONT .Q8H [facility] Rx#: [id number] Zovirax Inj 700 MG In NS Inj 114 / 114 114 / 114 100 ML @ 114 mls/hr IV.SIG Q8H [facility] Rx#:[id number] Calcium Gluconate Inj 2 GM In 120 / 120 NS Inj 100 ML @ 120 mls/hr IV. SIG ONCE ONE Rx#:[id number] Vimpat Inj 100 MG In NS Inj 100 110 / 110 110 / 110 ML @ 110 mls/hr IV.SIG Q12HR [facility] Rx#:[id number] MVI-12 Inj 10 ML Thiamine Inj 511.2 / 511.2 100 MG Folvite Inj 1 MG In D5W- 1/2 NS Inj 500 ML @ 127.8 mls/ hr IV.SIG DAILY [facility] Rx#: [id number] Zosyn 3.375 GM Premix 3.375 gm 100 / 100 100 / 100 50 / 50 In 50 ml @ 100 mls/hr IV.SIG Q6H [facility] Rx#:[id number] KCl 20 mEq Premix Inj 20 meq In 100 / 100 100 ml @ 50 mls/hr IV.SIG Q2H PRN Rx#:[id number] Vancomycin Inj 1,500 MG In NS 515 / 515 389 / 389 Inj 500 ML @ 250 mls/hr IV.SIG Q12H [facility] Rx#:[id number] fentaNYL 10 mcg/mL Premix Drip 500 / 500 250 / 250 2,500 mcg In 250 ml @ 50 MCG/HR 5 mls/hr IV.SIG TITRATE PRN Rx #:[id number] Oral 0 / 0 Tube Irrigant 150 / 150 Output: Urine 300 / 300 Urine Amount (Catheter) 250 / 250 750 / 750 Condom 250 / 250 750 / 750 Gastric Drainage 100 / 100 100 / 100 Orogastric Tube 100 / 100 100 / 100 Other: # Bowel Movements 0 - Urinary Catheter Management Indwelling Urethral Catheter Cath placed during this visit: yes, but has since been removed by the nurse Reason for continuing: Hourly intake/output Insertion date: 08/09/18 Insertion time: 18:30 Removal date: 08/11/18 Removal time: 09:50 Condom Cath placed during this visit: no Straight Cath placed during this visit: yes Reason for continuing: Not indwelling catheter Insertion date: 08/16/18 Insertion time: 02:30 Objective Laboratory Results - last 24 hr 08/13/18 08/13/18 08/14/18 10:17 11:55 04:33 Puncture Site Right radial Patient Temperature 98.6 O2 Saturation 96 ABG pH 7.43 H ABG pCO2 51 H* ABG pO2 118 ABG HCO3 33 H ABG O2 Content 14.6 ABG Base Excess 8.7 H ABG Methemoglobin 1.3 Eldon Test Present Hemoglobin 10.6 L Carboxyhemoglobin 1.1 O2 Delivery Device Ventilator Vent Setting [id number] Inspired O2 40 Critical Value Yes Sodium 141 Potassium 3.3 L D Chloride 103 Carbon Dioxide 28.7 Anion Gap 9 BUN 17 Creatinine 2.30 H Estimated GFR 29 L Random Glucose 94 Calcium 7.0 L* Calcium Adj for Albumin 8.4 L Total Bilirubin 0.8 AST 85 H ALT 98 H Alkaline Phosphatase 107 Total Creatine Kinase 1000 H CK-MB (CK-2) Less than 1.0 CK-MB (CK-2) % 0.1 Total Protein 5.5 L Albumin 2.2 L TSH Vancomycin Trough 33.6 H Hep Bs Antigen 08/14/18 08/14/18 04:33 08:36 Puncture Site Patient Temperature O2 Saturation ABG pH ABG pCO2 ABG pO2 ABG HCO3 ABG O2 Content ABG Base Excess ABG Methemoglobin Eldon Test Hemoglobin Carboxyhemoglobin O2 Delivery Device Vent Setting Inspired O2 Critical Value Sodium Potassium Chloride Carbon Dioxide Anion Gap BUN Creatinine Estimated GFR Random Glucose Calcium Calcium Adj for Albumin Total Bilirubin AST ALT Alkaline Phosphatase Total Creatine Kinase CK-MB (CK-2) CK-MB (CK-2) % Total Protein Albumin TSH 3.410 Vancomycin Trough Hep Bs Antigen Nonreactive Microbiology 08/11/18 15:00 Gram Stain - Final Sputum - Endotracheal Sputum Culture - Final Heavy growth normal respiratory sherman 08/11/18 14:29 Aerobic Blood Culture - Preliminary Blood - Peripheral No growth in 2 days Anaerobic Blood Culture - Preliminary No growth in 2 days 08/11/18 14:24 Aerobic Blood Culture - Preliminary Blood - Peripheral No growth in 2 days Anaerobic Blood Culture - Preliminary No growth in 2 days Review/Management - Diagnosis (1) Seizure Code(s): R56.9 - Unspecified convulsions Status: Acute Current Visit: Yes (2) Hypertensive urgency Code(s): I16.0 - Hypertensive urgency Status: Acute Current Visit: Yes (3) Alcohol intoxication Code(s): F10.929 - Alcohol use, unspecified with intoxication, unspecified Status: Acute Current Visit: Yes - Review/Management Plan: Severely hypertensive individual with reduced responsiveness and appeared to have seizure activity with elevated ethanol level ? Alcohol withdrawal suspected. Other consideration would include: toxic- metabolic ? Serotonin syndrome ? Illicit drugs +fever; check csf Apparently was doing heavy drinking past several weeks per RN discussion with the patient's brother next rhabdo MRI brain-no acute lesion nsx following cervical fx Recommendation CSF studies-pending seroquel 50mg bid Alcohol withdrawal precautions IV thiamine Scheduled benzo d/w rn No driving, operating any heavy machinery or dangerous machinery, swimming alone for at least 6 months of being seizure, spell free.
[2018-08-14] MEDS: Artificial Tears Opth Drops 15 ML Bottle EACH EYE SCH ×2 (10:13→16:39)
[2018-08-14 10:20] LABS: Hepatitis A IgM Antibody Nonreactive (Nonreactive)
--- NOTE | 2018-08-14 10:35 | US ---
EXAM DATE: 08/14/2018 10:28 AM EST AGE/SEX: 58 years / Male INDICATIONS: Increased BUN and Creatinine. CLINICAL DATA: This is the patient's initial encounter. Patient reports that signs and symptoms have been present for 1 day and indicates a pain score of Nonresponsive. MEDICAL/SURGICAL HISTORY: Hypertension. ETOH abuse. None. COMPARISON: No prior exams available for comparison. MEASUREMENTS: Right Kidney:__13.1 x 7.2 x 7.4 cm Left Kidney:__13.6 x 6.5 x 6.7 cm FINDINGS: Right Kidney: The right kidney is normal in size, shape and echogenicity. There is some mild prominen ce of the right collecting system. Left Kidney: Normal echogenicity and cortical thickness. No mass or hydronephrosis. Bladder: The urinary bladder appears to be somewhat distended with a volume of 1554 mL. Otherwise, th e urinary bladder is grossly unremarkable. Other: None. CONCLUSION: 1. Mild prominence of the right collecting system suggestive of some mild hydronephrosis. 2. The left kidney is unremarkable. 3. The urinary bladder appears to be distended with a volume of 1554 mL. Electronically signed by: Yaron Guerrero MD Board Certified Radiologist 08/14/2018 10:34 AM EST
--- NOTE | 2018-08-14 10:44 | US ---
EXAM DATE: 08/14/2018 10:31 AM EST AGE/SEX: 58 years / Male INDICATIONS: Edema. CLINICAL DATA: This is the patient's initial encounter. Patient reports that signs and symptoms have been present for 1 day and indicates a pain score of Nonresponsive. MEDICAL/SURGICAL HISTORY: Hypertension. ETOH abuse. None. COMPARISON: No prior exams available for comparison. FINDINGS: Right Upper Extremity: Occlusive and nonocclusive thrombus is noted within the right cephalic vein. There is normal color flow within the right subclavian, axillary, brachial, radial and ulnar veins. Left Upper Extremity: Occlusive and nonocclusive thrombus is noted within the left cephalic vein. The re is normal color flow within the left subclavian, axillary, brachial, radial and ulnar veins. Other: None. CONCLUSION: 1. Occlusive and nonocclusive thrombus within the bilateral cephalic veins. Electronically signed by: Lenny Davis MD Board Certified Radiologist 08/14/2018 10:43 AM EST
[2018-08-14 10:45] LABS: Sodium,Urine Random 26 meq/L
[2018-08-14 10:53] LABS: Creatinine,Urine Random 86 mg/dL (27-300)
--- NOTE | 2018-08-14 12:02 | P.PNPL ---
Subjective Interval history: No events overnight. Sedated and intubated. For LP tomorrow. Afebrile. Physical Exam Vital signs: Vital Signs 08/13/18 12:00 08/13/18 12:30 08/13/18 13:00 Temperature 99 F Pulse Rate 74 72 72 Respiratory Rate 16 16 16 Blood Pressure 145/80 H 146/80 H 140/77 Pulse Oximetry 100 100 100 08/13/18 13:30 08/13/18 14:00 08/13/18 14:30 Temperature Pulse Rate 71 72 72 Respiratory Rate 16 16 16 Blood Pressure 133/77 136/77 133/71 Pulse Oximetry 99 100 99 08/13/18 15:00 08/13/18 15:30 08/13/18 16:00 Temperature 99.4 F Pulse Rate 124 H 137 H 74 Respiratory Rate 21 16 16 Blood Pressure 169/79 H 144/75 H 125/67 Pulse Oximetry 97 96 97 08/13/18 16:30 08/13/18 17:00 08/13/18 17:10 Temperature Pulse Rate 73 74 74 Respiratory Rate 16 16 16 Blood Pressure 127/70 146/75 H Pulse Oximetry 99 100 100 08/13/18 17:30 08/13/18 18:00 08/13/18 18:30 Temperature Pulse Rate 122 H 75 74 Respiratory Rate 17 16 16 Blood Pressure 156/79 H 159/86 H 144/77 H Pulse Oximetry 100 100 99 08/13/18 19:00 08/13/18 19:30 08/13/18 20:00 Temperature Pulse Rate 73 72 74 Respiratory Rate 16 16 16 Blood Pressure 149/77 H 146/76 H 133/67 Pulse Oximetry 99 99 98 08/13/18 20:30 08/13/18 20:40 08/13/18 20:41 Temperature Pulse Rate 71 71 Respiratory Rate 16 16 16 Blood Pressure 134/71 Pulse Oximetry 99 99 08/13/18 21:00 08/13/18 21:30 08/13/18 22:00 Temperature Pulse Rate 71 71 73 Respiratory Rate 16 17 16 Blood Pressure 137/73 147/79 H Pulse Oximetry 99 100 99 08/13/18 22:30 08/13/18 23:00 08/13/18 23:30 Temperature Pulse Rate 73 87 73 Respiratory Rate 16 24 16 Blood Pressure 124/64 141/75 H 124/64 Pulse Oximetry 98 97 97 08/13/18 23:56 08/14/18 00:00 08/14/18 00:30 Temperature 99.3 F Pulse Rate 71 70 84 Respiratory Rate 16 16 17 Blood Pressure 123/65 166/83 H Pulse Oximetry 98 100 08/14/18 01:00 08/14/18 01:30 08/14/18 02:00 Temperature Pulse Rate 74 70 80 Respiratory Rate 16 16 16 Blood Pressure 126/68 119/63 146/74 H Pulse Oximetry 97 98 96 08/14/18 02:30 08/14/18 03:00 08/14/18 03:30 Temperature Pulse Rate 70 71 68 Respiratory Rate 16 16 16 Blood Pressure 141/73 H 148/76 H 124/63 Pulse Oximetry 100 99 98 08/14/18 04:00 08/14/18 04:23 08/14/18 04:24 Temperature Pulse Rate 68 87 Respiratory Rate 16 25 H 20 Blood Pressure 139/73 Pulse Oximetry 99 96 08/14/18 04:30 08/14/18 05:00 08/14/18 05:30 Temperature Pulse Rate 85 77 70 Respiratory Rate 18 16 16 Blood Pressure 146/71 H 105/57 L 102/58 L Pulse Oximetry 97 98 97 08/14/18 06:00 08/14/18 06:30 08/14/18 07:00 Temperature Pulse Rate 68 69 81 Respiratory Rate 16 16 16 Blood Pressure 101/58 L 109/60 142/69 H Pulse Oximetry 98 98 100 08/14/18 07:30 08/14/18 07:45 08/14/18 08:00 Temperature 98.5 F Pulse Rate 72 81 79 Respiratory Rate 16 19 19 Blood Pressure 128/66 144/71 H Pulse Oximetry 100 100 90 L 08/14/18 08:30 08/14/18 09:00 08/14/18 09:30 Temperature Pulse Rate 91 H 79 71 Respiratory Rate 19 16 16 Blood Pressure 126/62 103/57 L 106/59 L Pulse Oximetry 96 96 98 08/14/18 10:00 08/14/18 10:30 08/14/18 11:00 Temperature Pulse Rate 70 69 66 Respiratory Rate 16 16 16 Blood Pressure 147/66 H 149/67 H 159/69 H Pulse Oximetry 100 100 100 08/14/18 11:54 08/14/18 11:57 Temperature Pulse Rate 63 Respiratory Rate 16 16 Blood Pressure Pulse Oximetry 100 Intake & Output 08/13/18 08/14/18 08/14/18 18:59 06:59 18:59 Intake Total 3470.2 / 3470.2 2124 / 2124 1663 / 1663 Output Total 350 / 350 1150 / 1150 Balance 3120.2 / 3120.2 974 / 974 1663 / 1663 Weight 102.7 kg Intake: IV 3470.2 / 3470.2 1973 / 1973 1663 / 1663 Diprivan 1000 mg/100 ml Inj 1, 400 / 400 400 / 400 000 mg In 100 ml @ 5 MCG/KG/MIN 2.634 mls/hr IV.CONT TITRATE PRN Rx#:[id number] NS Inj 1,000 ML @ 100 mls/hr IV 1000 / 1000 1000 / 1000 .CONT .Q10H [facility] Rx#:[id number] Sodium Bicarbonate 8.4% Inj 150 1000 / 1000 MEQ In D5W Inj 850 ML @ 125 mls/hr IV.CONT .Q8H [facility] Rx#: [id number] Zovirax Inj 700 MG In NS Inj 114 / 114 114 / 114 114 / 114 100 ML @ 114 mls/hr IV.SIG Q8H [facility] Rx#:[id number] Calcium Gluconate Inj 2 GM In 120 / 120 NS Inj 100 ML @ 120 mls/hr IV. SIG ONCE ONE Rx#:[id number] Vimpat Inj 100 MG In NS Inj 100 110 / 110 110 / 110 110 / 110 ML @ 110 mls/hr IV.SIG Q12HR [facility] Rx#:[id number] MVI-12 Inj 10 ML Thiamine Inj 511.2 / 511.2 100 MG Folvite Inj 1 MG In D5W- 1/2 NS Inj 500 ML @ 127.8 mls/ hr IV.SIG DAILY [facility] Rx#: [id number] Zosyn 3.375 GM Premix 3.375 gm 100 / 100 100 / 100 50 / 50 In 50 ml @ 100 mls/hr IV.SIG Q6H [facility] Rx#:[id number] KCl 20 mEq Premix Inj 20 meq In 100 / 100 100 ml @ 50 mls/hr IV.SIG Q2H [facility] Rx#:[id number] Vancomycin Inj 1,500 MG In NS 515 / 515 389 / 389 Inj 500 ML @ 250 mls/hr IV.SIG Q12H [facility] Rx#:[id number] fentaNYL 10 mcg/mL Premix Drip 500 / 500 250 / 250 2,500 mcg In 250 ml @ 50 MCG/HR 5 mls/hr IV.SIG TITRATE PRN Rx #:[id number] Oral 0 / 0 Tube Irrigant 150 / 150 Output: Urine 300 / 300 Urine Amount (Catheter) 250 / 250 750 / 750 Condom 250 / 250 750 / 750 Gastric Drainage 100 / 100 100 / 100 Orogastric Tube 100 / 100 100 / 100 Other: # Bowel Movements 0 - Constitutional no acute distress - Routine HEENT Exam Head: Present: normocephalic, atraumatic Eye: Present: EOMI, PERRL, normal accommodation, conjunctivae pink ENT: Present: mucous membranes moist - Routine Neck Exam Present: supple, trachea midline - Routine Respiratory Exam Present: patient mechanically ventilated, CTA bilaterally - Routine Cardiovascular Exam Present: RRR, S1, S2 - Routine Abdominal Exam Present: soft, normoactive bowel sounds - Routine Skin Exam Present: intact, dry - Routine Neurological Exam Present: altered mental status - Urinary Catheter Management Indwelling Urethral Catheter Cath placed during this visit: yes, but has since been removed by the nurse Reason for continuing: Hourly intake/output Insertion date: 08/09/18 Insertion time: 18:30 Removal date: 08/11/18 Removal time: 09:50 Condom Cath placed during this visit: no Reason for continuing: Not indwelling catheter Straight Cath placed during this visit: yes Reason for continuing: Not indwelling catheter Insertion date: 08/14/18 Insertion time: 10:15 Assessment and Plan - Plan 1. VDRF 2. Aspiration pneumonia. 3. Encephalopathy. 4. Rhabdomyolysis with elevated CK. 5. C6 fracture. 6. Ethanol intoxication. 7. Anemia and thrombocytopenia. Plan Continue with vent support and maintain sats >92%. Bronchodilators, ICU vent bundle. SBT daily as miko. On PRVC RR16, TV 550, PEEP:5 and FIO2: 40%. Monitor neuro status closely, daily sedation vacation. Neuro is following, On Acyclovir per Neuro. Continue Thiamine. For LP tomorrow Abx- on vancomycin and Zosyn. Monitor for signs of infection( fever and WBC). 08/11 sputum culture: Normal resp sherman Continue IVF, monitor CKs. trending down Monitor renal function and electrolyte replacement per protocol. Doppler US LE negative for DVT Echocardiogram showed EF of 50% to 55%. GI and DVT prophylaxis. Continue treatment plan.
--- NOTE | 2018-08-14 12:22 | P.DIET ---
Nutritional Evaluation Type of nutrition evaluation: initial Nutrition consult regarding: Tube Feeding Objective - Diagnosis AMS, C6 Vertebral fx, alcohol abuse - Objective % IBW: 111 Body Weight Used for Calculations: Actual (89.6 kg ) Energy Needs - Lower Range (kCal/kg): 22 Energy Needs - Upper Range (kCal/kg): 27 Lower Limit kCal/kg (kCals): 1,971 Upper Limit kCal/kg (kCals): 2,419 Lower Limit Protein Factor (Grams per Kg): 1.0 Upper Limit Protein Factor (Grams per Kg): 1.2 Lower Protein Needs (Protein): 90 Upper Protein Needs (Protein): 108 Dietitian Reviewed in Medical Record: Curent medications, Intake & Output, Labs , Medical history, Tube feeding Diet Order: NPO Objective Comments: PMH includes: Alcohol Abuse, HTN Labs include: Creatinine 2.3, estGFR 29, Glucose 94 Meds include: Coreg, Pepcid, IV Folic Acid, MV, Thiamine, Haldol, Seroquel, Ativan, Lactulose, Propofol Free Water Flushes 200ml Q 6hr Assessment Assessment: Pt is at nutritional risk r/t clinical status and need for TF'ing. TF'ing, as ordered, w/Nepro @ goal rate 50ml/hr will offer 2160 kcal, 97g protein, 872ml free water and provide for pt's assessed needs. Propofol provides additional kcal (1.1 kcal/ml)when running. Free water flushes per MD as ordered. Labs reviewed-monitor renal labs closely. Additional Recs to follow r/t clinical course. Recommendations: 1. TF'ing, as ordered, w/Nepro @ goal rate 50ml/hr provides for pt's assessed needs 2. Propofol provides additional kcal (1.1 kcal/ml)when running 3. Free water flushes per MD as ordered 4. Additional Recs to follow r/t clinical course Dietitian to Monitor: Lab values, Electrolytes, Renal labs, Glucose level, Intake & Output, Tube feeding tolerance, Weight change, Medical course
[2018-08-14] MEDS: hydrALAZINE HCl Inj 20 MG/ML Vial IV.PUSH PRN (12:37)
[2018-08-14] MEDS ORDERED: Famotidine 20 MG Tablet NG/OG SCH (21:00)
[2018-08-15] MEDS: Propofol 1000 mg/100 ml Inj 1,000 MG/100 ML BOTTLE IV.CONT PRN ×6 (00:20→21:20)
[2018-08-15] MEDS: Artificial Tears Opth Drops 15 ML Bottle EACH EYE SCH ×3 (00:51→17:32)
[2018-08-15] MEDS: Piperacil/Tazo 3.375 GM Premix 3.375 GM/50 ML PIGGYBACK IV.SIG SCH ×2 (02:33→08:25)
[2018-08-15] MEDS: Oral Hygiene Kit OROPHARYNG SCH ×4 (03:45→23:28)
[2018-08-15] MEDS: Labetalol HCl Inj 100 MG/20 ML Vial IV.PUSH PRN ×2 (04:55→22:04)
[2018-08-15] MEDS: Acyclovir Inj 700 MG in Sodium Chlor 0.9% Inj 100 ML IV.SIG SCH ×2 (05:13→13:23)
[2018-08-15] MEDS: Sod Chloride 0.9% Inj 1,000 ML IV.CONT SCH ×2 (05:14→15:19)
[2018-08-15 08:22] LABS: Baso % (Auto) 0.4 % (0.0-2.0); Eos # (Auto) 0.2 th/mm3 (0.0-0.4); Eos % (Auto) 4.2 % (0.0-4.0); Hematocrit 29.7 % (39.0-51.0); Hemoglobin 10.3 gm/dL (13.0-17.0); Lymph # (Auto) 0.3 th/mm3 (1.0-4.8); Lymph % (Auto) 6.9 % (9.0-44.0); Mean Corpuscular HGB Conc 34.7 % (32.0-36.0); Mean Corpuscular Hemoglobin 33.3 pg (27.0-34.0); Mean Corpuscular Volume 95.8 fL (80.0-100.0); Mean Platelet Volume 7.1 fL (7.0-11.0); Mono # (Auto) 0.5 th/mm3 (0.0-0.9); Mono % (Auto) 13.9 % (0.0-8.0); Neut # (Auto) 2.9 th/mm3 (1.8-7.7); Neut % (Auto) 74.6 % (16.0-70.0); Platelet Count 171 th/mm3 (150-450); Red Cell Distribution Width 14.2 % (11.6-17.2); White Blood Count 3.8 th/mm3 (4.0-11.0)
[2018-08-15] MEDS: fentaNYL 10 mcg/mL Premix Drip 2,500 MCG/250 ML BAG IV.SIG PRN ×2 (08:22→18:38)
[2018-08-15] MEDS: Chlorhexidine 0.12% Oral Kit 15 ML UDC OROPHARYNG SCH ×2 (08:23→20:33)
[2018-08-15] MEDS: chlordiazePOXIDE 25 MG Capsule PO SCH ×2 (08:23→20:33)
[2018-08-15] MEDS: Carvedilol 6.25 MG Tablet PO SCH ×2 (08:23→20:33)
[2018-08-15] MEDS: Folic Acid 1 MG Tablet PO SCH (08:23)
[2018-08-15] MEDS: Multivitamin Inj 10 ML, Thiamine Inj 100 MG, Folic Acid Inj 1 MG in Dextrose 5%/NaCl 0.... IV.SIG SCH (08:24)
[2018-08-15] MEDS: QUEtiapine 25 MG Tablet PO SCH (08:24)
[2018-08-15] MEDS: Polyethylene Glycol 3350 17 GM Packet PO SCH ×2 (08:24→20:35)
[2018-08-15] MEDS: Senna/Docusate Sodium 8.6/50 MG Tablet PO SCH ×2 (08:24→20:35)
[2018-08-15 08:54] LABS: Calcium 7.3 mg/dL (8.5-10.1); Carbon Dioxide 23.8 meq/L (21.0-32.0); Magnesium 1.5 mg/dL (1.5-2.5); Potassium 3.2 meq/L (3.5-5.1); Total Protein 5.1 g/dL (6.4-8.2)
[2018-08-15] MEDS: Lacosamide Inj 100 MG in Sodium Chlor 0.9% Inj 100 ML IV.SIG SCH (09:27)
--- NOTE | 2018-08-15 11:43 | P.PNCC ---
Subjective Subjective Remarks/Hospital Course: 08/09: 58-year-old male who was found down in his friend's garage this morning. He has a history of alcohol abuse. He recently sold his house and was staying at a friend's home. Reportedly he was due to fly later today. Patient was brought to the ER by EMS and was noted to have involuntary movements with jerking movements involving upper and lower extremities as well as his head. He received Ativan 3 mg IV and was loaded with Keppra. Initially stroke alert was called. Head CT was negative for any bleed however there was question of C6 fracture. Neurology and neurosurgery were consulted. Patient was loaded with IV Cerebyx and Vimpat by neurology. He had a [place] J collar placed after placing hard cervical collar by neurosurgery. When I evaluated the patient in the ER he was still having involuntary movements which appeared to be episodic with occasional twitchings on his face and nystagmus. This did not appear to be generalized tonic-clonic convulsions however appeared more like an extrapyramidal reaction. I ordered a stat EEG. Patient moving around too much to obtain MRI at this time. His urine tox screen was negative. He was positive for alcohol. Patient nonverbal. His involuntary movements get exaggerated on stimulation. He was reportedly completely normal yesterday. 08/10: Patient had an episode of emesis last night followed by labored breathing. He continued to have involuntary movements. He was intubated and placed on mechanical ventilation. Currently sedated with propofol, orally intubated on mechanical ventilation. Awaiting MRI brain and C-spine. EEG done yesterday did not show any seizure activity. 08/11: Sedated, orally intubated on mechanical ventilation. MRI brain unremarkable. MRI C-spine with hairline C6 fracture with no displacement. 08/12: Remains sedated, orally intubated on mechanical ventilation. Reintubated yesterday for significant hypoxia and respiratory distress with O2 sats dropping to the 70s despite nonrebreather facemask. CT pulmonary angiogram was negative for PE and showed bilateral infiltrates at the bases. 08/13: Remains sedated, orally intubated on mechanical ventilation. On propofol /fentanyl GTT. Starting tube feeds 08/14: T-max 99.4. Currently 98.3. Scheduled for IR for lumbar puncture today. Patient acute injury. Patient is on vancomycin, acyclovir and did receive IV contrast recently. Renal ultrasound ordered. Urine eosinophils, sodium and creatinine ordered. Arousable and does follow commands on the ventilator. Breakthrough agitation/involuntary systemic movements noted SUBJECTIVE: 08/15: Plan for lumbar puncture today. Will likely try sedation vacation overnight. See 4 mg of midazolam overnight due to agitation. Appears comfortable. Intermittently follows commands. Objective Vital Signs / I&O: Vital Signs 08/14/18 11:54 08/14/18 11:57 08/14/18 12:00 Temperature 98.6 F Pulse Rate 63 64 Respiratory Rate 16 16 16 Blood Pressure 182/81 H Pulse Oximetry 100 100 08/14/18 12:16 08/14/18 12:30 08/14/18 12:47 Temperature Pulse Rate 67 108 H 92 H Respiratory Rate 16 20 22 Blood Pressure 208/93 H 209/85 H 164/71 H Pulse Oximetry 100 95 99 08/14/18 13:00 08/14/18 13:30 08/14/18 14:00 Temperature Pulse Rate 105 H 118 H 81 Respiratory Rate 17 19 16 Blood Pressure 156/69 H 165/72 H 123/57 L Pulse Oximetry 99 95 98 08/14/18 14:30 08/14/18 15:00 08/14/18 15:30 Temperature Pulse Rate 80 80 133 H Respiratory Rate 16 16 17 Blood Pressure 132/60 168/77 H 199/149 H Pulse Oximetry 99 100 99 08/14/18 15:33 08/14/18 15:42 08/14/18 16:00 Temperature 98.6 F Pulse Rate 140 H 87 83 Respiratory Rate 25 H 16 16 Blood Pressure 201/84 H 169/75 H 148/68 H Pulse Oximetry 94 L 99 97 08/14/18 16:30 08/14/18 17:00 08/14/18 17:30 Temperature Pulse Rate 79 87 79 Respiratory Rate 16 16 16 Blood Pressure 152/71 H 158/71 H 166/73 H Pulse Oximetry 100 100 100 08/14/18 18:00 08/14/18 18:30 08/14/18 19:00 Temperature Pulse Rate 81 78 78 Respiratory Rate 16 16 16 Blood Pressure 155/69 H 148/67 H Pulse Oximetry 100 100 100 08/14/18 19:30 08/14/18 20:00 08/14/18 20:30 Temperature 99.6 F Pulse Rate 77 79 84 Respiratory Rate 16 16 16 Blood Pressure 162/72 H 162/70 H 158/71 H Pulse Oximetry 100 100 100 08/14/18 21:00 08/14/18 21:30 08/14/18 22:00 Temperature Pulse Rate 83 76 75 Respiratory Rate 16 16 16 Blood Pressure 161/70 H 140/64 142/63 H Pulse Oximetry 100 100 100 08/14/18 22:30 08/14/18 23:00 08/14/18 23:18 Temperature Pulse Rate 73 74 76 Respiratory Rate 16 16 16 Blood Pressure 139/63 138/61 Pulse Oximetry 100 100 99 08/14/18 23:30 08/15/18 00:00 08/15/18 00:23 Temperature 98.4 F Pulse Rate 77 77 78 Respiratory Rate 16 23 23 Blood Pressure 140/65 Pulse Oximetry 100 100 100 08/15/18 01:00 08/15/18 01:13 08/15/18 02:00 Temperature Pulse Rate 73 73 77 Respiratory Rate 16 16 16 Blood Pressure 163/71 H Pulse Oximetry 100 100 100 08/15/18 02:13 08/15/18 03:00 08/15/18 03:13 Temperature Pulse Rate 77 73 73 Respiratory Rate 16 16 16 Blood Pressure 161/71 H 163/72 H Pulse Oximetry 99 99 99 08/15/18 03:22 08/15/18 04:00 08/15/18 04:13 Temperature 98.8 F Pulse Rate 82 77 89 Respiratory Rate 16 16 22 Blood Pressure 179/79 H Pulse Oximetry 100 99 96 08/15/18 04:47 08/15/18 05:00 08/15/18 05:13 Temperature Pulse Rate 72 72 72 Respiratory Rate 16 16 16 Blood Pressure 154/64 H 149/64 H Pulse Oximetry 100 100 100 08/15/18 06:00 08/15/18 06:13 08/15/18 07:00 Temperature Pulse Rate 75 74 75 Respiratory Rate 16 16 16 Blood Pressure 137/61 Pulse Oximetry 100 100 100 08/15/18 07:13 08/15/18 08:00 08/15/18 08:13 Temperature Pulse Rate 74 90 117 H Respiratory Rate 16 26 H 16 Blood Pressure 149/66 H 154/75 H Pulse Oximetry 100 98 97 08/15/18 08:22 08/15/18 09:00 08/15/18 09:13 Temperature 98.7 F Pulse Rate 118 H 83 125 H Respiratory Rate 20 22 16 Blood Pressure 152/71 H Pulse Oximetry 100 100 08/15/18 10:00 08/15/18 10:13 08/15/18 11:00 Temperature Pulse Rate 73 72 68 Respiratory Rate 16 16 16 Blood Pressure 136/60 Pulse Oximetry 100 100 100 Intake & Output 08/14/18 08/15/18 08/15/18 18:59 06:59 18:59 Intake Total 3488.2 / 3488.2 3542 / 3542 510 / 510 Output Total 1700 / 1700 2200 / 2200 Balance 1788.2 / 1788.2 1342 / 1342 510 / 510 Weight 106.6 kg Intake: IV 2788.2 / 2788.2 3028 / 3028 510 / 510 Diprivan 1000 mg/100 ml Inj 1, 200 / 200 390 / 390 100 / 100 000 mg In 100 ml @ 5 MCG/KG/MIN 2.634 mls/hr IV.CONT TITRATE PRN Rx#:[id number] NS Inj 1,000 ML @ 100 mls/hr IV 1000 / 1000 1950 / 1950 .CONT .Q10H SATYA Rx#:[id number] Zovirax Inj 700 MG In NS Inj 228 / 228 228 / 228 100 ML @ 114 mls/hr IV.SIG Q8H SATYA Rx#:[id number] Vimpat Inj 100 MG In NS Inj 100 110 / 110 110 / 110 110 / 110 ML @ 110 mls/hr IV.SIG Q12HR SATYA Rx#:[id number] MVI-12 Inj 10 ML Thiamine Inj 511.2 / 511.2 100 MG Folvite Inj 1 MG In D5W- 1/2 NS Inj 500 ML @ 127.8 mls/ hr IV.SIG DAILY SATYA Rx#: [id number] Zosyn 3.375 GM Premix 3.375 gm 100 / 100 100 / 100 50 / 50 In 50 ml @ 100 mls/hr IV.SIG Q6H SATYA Rx#:[id number] Vancomycin Inj 1,500 MG In NS 389 / 389 Inj 500 ML @ 250 mls/hr IV.SIG Q12H SATYA Rx#:[id number] fentaNYL 10 mcg/mL Premix Drip 250 / 250 250 / 250 250 / 250 2,500 mcg In 250 ml @ 50 MCG/HR 5 mls/hr IV.SIG TITRATE PRN Rx #:[id number] Tube Feeding 300 / 300 254 / 254 Tube Irrigant 60 / 60 Water Bolus Amount 400 / 400 200 / 200 Output: Urine Amount (Catheter) 1700 / 1700 2200 / 2200 Condom 100 / 100 500 / 500 Straight 1600 / 1600 1700 / 1700 Other: # Incontinent Voids 2 # Bowel Movements 0 Result Diagrams: 08/15/18 07:40 08/15/18 07:40 Other Results: Microbiology 08/11/18 14:29 Blood - Peripheral Aerobic Blood Culture - Preliminary No growth in 4 days 08/11/18 14:29 Blood - Peripheral Anaerobic Blood Culture - Preliminary No growth in 4 days 08/11/18 14:24 Blood - Peripheral Aerobic Blood Culture - Preliminary No growth in 4 days 08/11/18 14:24 Blood - Peripheral Anaerobic Blood Culture - Preliminary No growth in 4 days 08/11/18 15:00 Sputum - Endotracheal Gram Stain - Final 08/11/18 15:00 Sputum - Endotracheal Sputum Culture - Final Heavy growth normal respiratory sherman 08/09/18 11:00 Catheterized Urine Urine Culture - Final No growth in 48 hours Imaging: Head CT 08/09/18 09:20 CONCLUSION: 1. No acute intracranial abnormality is seen. 2. Mild widening of the cortical sulci which could suggest some atrophy. Report was called by [Dr. Dutton to at 9:49 AM. ] Chest X-Ray 08/09/18 09:21 CONCLUSION: No acute cardiopulmonary process. Cervical Spine CT 08/09/18 09:23 CONCLUSION: 1. Fracturing through anterior flowing spurs at the anterior C6 level with the fracture extending into the anterior inferior left lateral aspect of the C6 vertebral body. Empty displacement is not seen. No other possible fractures are seen. 2. 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 3. Degenerative change. Head CTA 08/09/18 09:28 CONCLUSION: Negative CTA. Report was called by [Dr. Dutton to Dr. Faustin. A message was left on the voicemail. ] Neck CTA 08/09/18 09:28 CONCLUSION: Negative CTA of the neck. Cervical Spine MRI 08/10/18 00:00 CONCLUSION: 1. Fracturing through the prominent flowing spurs at the C6 level and extending into the anterior inferior aspect of C6 vertebral body without displacement. Minimal edema seen around the fracture site. 2. Prominent spurring extending from C4 to into the thoracic spine consistent with DISH. 3. Mild central disc protrusion at the C3-C4 level. 4. Mild disc protrusion with the apex at the left lateral recess region at the C5-C6 level. 5. Neural foraminal narrowing at the C3-C4 and C5-C6 levels. Chest X-Ray 08/10/18 00:00 CONCLUSION: ET tube in good position. Lungs are grossly clear. Head MRI 08/10/18 00:00 CONCLUSION: 1. No acute intracranial abnormality. 2. Mild atrophy. Lumbar Spine CT 08/10/18 00:00 CONCLUSION: 1. No acute abnormality seen. 2. Prominent spur seen throughout the thoracic and lumbar spine likely from DISH. 3. Mild disc bulges at the L3-L4 and L4-L5 levels. 4. Lower lumbar facet hypertrophy. Thoracic Spine CT 08/10/18 00:00 CONCLUSION: 1. No fracture is seen. 2. Prominent spurring seen throughout the thoracic spine but be secondary to DISH. 3. Subpleural areas of consolidation or atelectasis at the posterior lower lungs. Chest CTA 08/11/18 00:00 CONCLUSION: 1. No evidence of any pulmonary embolism. 2. There are bilateral infiltrates predominantly in the posterior mid to lower lung villarreal. 3. 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 Chest X-Ray 08/11/18 13:29 CONCLUSION: Increasing bibasal infiltrates. Venous Doppler Study 08/12/18 00:00 CONCLUSION: 1. The study is negative for bilateral lower extremity deep venous thrombosis. Chest X-Ray 08/13/18 10:17 CONCLUSION: Mild improvement in the bibasilar pulmonary infiltrates compared to the prior exam. Venous Doppler Study 08/14/18 00:00 CONCLUSION: 1. Occlusive and nonocclusive thrombus within the bilateral cephalic veins. Abdomen/Bladder Ultrasound 08/14/18 07:24 CONCLUSION: 1. Mild prominence of the right collecting system suggestive of some mild hydronephrosis. 2. The left kidney is unremarkable. 3. The urinary bladder appears to be distended with a volume of 1554 mL. Objective Remarks: GENERAL: 58-year-old male currently orotracheally intubated no acute distress SKIN: Warm and dry. No rash HEAD: Atraumatic. Normocephalic. EYES: Pupils equal and round. No scleral icterus. No injection or drainage. ENT: No nasal bleeding or discharge. Mucous membranes pink and moist. NECK: Trachea midline. No JVD. CARDIOVASCULAR: Regular rate and rhythm. S1, S2. No S4. No murmur RESPIRATORY: No accessory muscle use. Clear to auscultation. Breath sounds equal bilaterally. GASTROINTESTINAL: Abdomen soft, non-tender, nondistended. Hypoactive bowel sounds are appreciated MUSCULOSKELETAL: Extremities without significant peripheral edema. No obvious deformities. NEUROLOGICAL: Awake and alert. Occasional fine tremor type movements resolved. Follows commands off sedation. Extremely agitated at times. Moves all 4 extremities spontaneously and to command. Positive cough and gag Assessment and Plan - Assessment and Plan Plan: Neuro/Psych: Acute toxic metabolic encephalopathy Involuntary movements -EEG 08/09- for epileptiform activity Anterior C6 fracture -[place] J collar times 6 weeks EtOH abuse/withdrawal. Level 114 admission Currently on propofol at 50 william grams per kilogram per minute/fentanyl drip at 250 william grams an hour for sedation/analgesia while intubated Dexmedetomidine drip added 08/14 for weaning Follow neuro checks. Neurology neurosurgery consulted. EEG done in ER did not reveal any seizure activity with ongoing involuntary movements. MRI brain unremarkable, MRI C-spine nondisplaced C6 fracture, continue [place] J collar for 6 weeks per neurosurgery. Aspirin placed on hold for lumbar puncture. Currently on lacosamide 100 mg IV twice daily per neurology Started thiamine/MVI/folic acid daily and history of EtOH abuse Ordered [facility] protocol with lorazepam as needed for suspected alcohol withdrawal Currently on chlordiazepoxide 25 mg mg twice daily and quetiapine 50 mg twice daily Neurology started acyclovir IV while awaiting lumbar puncture Cardiovascular: Hypertensive emergency Elevated cholesterol/total Elevated HDL Rhabdomyolysis downtrending CPK to 1000 Initially was hypertensive on arrival. Hydralazine and labetalol as needed. Continue carvedilol 6.25 mg p.o. twice daily Troponin 0.04 Pulmonary: Acute hypoxic hypercapnic respiratory failure Intubated for airway protection and placed on mechanical ventilation following episode of emesis with question of aspiration on 08/10 AM. PRVC ventilation 16/550///30 vent bundle, Albuterol/ipratropium aerosols every 4 hours with albuterol aerosols every 2 hours as needed dyspnea tolerated CPAP trial and extubated on 08/11 however about 5 hours following extubation and required reintubation for hypoxic respiratory failure of unclear etiology. CT pulmonary angiogram negative for PE but possible right subclavian thrombus. Check upper extremity Dopplers today.. Consulted pulmonary for further evaluation of hypoxic respiratory failure Chest x-ray in a.m. 08/16 GI/liver: Elevated transaminases downward trending Hypoalbuminemia with moderate protein calorie malnutrition Continue tube feeds with Nepro goal 50 cc an hour and advance to goal as tolerated. Famotidine 20 mg daily for GI prophylaxis Docusate sodium/senna 1 tablet twice daily for bowel regimen. Added polyethylene glycol 17 g twice daily and lactulose 30 cc twice daily Negative hepatitis panel FEN/renal/: Acute kidney injury Acute hypokalemia and hypomagnesia Hyperphosphatemia Urinary retention with mild bilateral hydronephrosis IV hydration, strict intake output, monitor and replete electrolytes, follow BUN /creatinine. Bicarbonate drip discontinued 08/13. Currently on normal saline at 100 cc an hour. Free water 200 cc every 6 hours Potassium chloride 50 mEq by tube x1 now. 4 g mag sulfate IV x1 now. Recheck in a.m. with magnesium Avoid nephrotoxic medications. Discontinue vancomycin. Discontinue acyclovir if HSV negative. Will Place Goff if needed for urinary retention. 700 cc last straight catheterization. ID: Currently on vancomycin, piperacillin/tazobactam and acyclovir. Watch for fever /leukocytosis Blood cultures x21 10/10 no growth today. Sputum 08/11 no growth to date Number puncture with IR today 08/14 Endocrine: Watch for hyperglycemia, SSI for glycemic control with aspart insulin/low regimen every 6 hours Check TSH Heme: Macrocytic anemia Leukopenia Documentation of prior possible right subclavian occlusion -negative Doppler Bilateral cephalic occlusive and nonocclusive superficial venous thrombosis Follow CBC. No indication for transfusion of blood products at this time We will start subcu heparin 24 hours post lumbar puncture MSK: Elevated BMI Diffuse idiopathic skeletal hyperostosis Weight loss encouraged PT evaluate and treat Prophylaxis: SCDs. heparin 5000 units subcutaneously every 8 hourly 24 hours post lumbar puncture, famotidine for GI prophylaxis Condition critical Time spent on critical care excluding procedures 30 minutes Code Status: Full code
[2018-08-15] MEDS ORDERED: Calcium Acetate 667 MG Capsule NG/OG ONE (11:46)
[2018-08-15] MEDS ORDERED: Potassium Chloride 25 MEQ Effervescent Tablet PO ONE (12:00)
[2018-08-15] MEDS ORDERED: Magnesium Sulfate Inj 4 GM in Sodium Chlor 0.9% Inj 92 ML IV.SIG ONE (12:00)
[2018-08-15 12:51] LABS: RBC on Tube 4 10 /mm3
[2018-08-15 12:52] LABS: Lymphocytes, CSF 70 %; Monocytes,CSF 30 %; Neutrophils,CSF 0 %
--- NOTE | 2018-08-15 13:14 | P.PNPL ---
Subjective Interval history: Patient remains sedated and intubated. Afebrile. just came back from IR s/p LP. Physical Exam Vital signs: Vital Signs 08/14/18 13:30 08/14/18 14:00 08/14/18 14:30 Temperature Pulse Rate 118 H 81 80 Respiratory Rate 19 16 16 Blood Pressure 165/72 H 123/57 L 132/60 Pulse Oximetry 95 98 99 08/14/18 15:00 08/14/18 15:30 08/14/18 15:33 Temperature Pulse Rate 80 133 H 140 H Respiratory Rate 16 17 25 H Blood Pressure 168/77 H 199/149 H 201/84 H Pulse Oximetry 100 99 94 L 08/14/18 15:42 08/14/18 16:00 08/14/18 16:30 Temperature 98.6 F Pulse Rate 87 83 79 Respiratory Rate 16 16 16 Blood Pressure 169/75 H 148/68 H 152/71 H Pulse Oximetry 99 97 100 08/14/18 17:00 08/14/18 17:30 08/14/18 18:00 Temperature Pulse Rate 87 79 81 Respiratory Rate 16 16 16 Blood Pressure 158/71 H 166/73 H 155/69 H Pulse Oximetry 100 100 100 08/14/18 18:30 08/14/18 19:00 08/14/18 19:30 Temperature Pulse Rate 78 78 77 Respiratory Rate 16 16 16 Blood Pressure 148/67 H 162/72 H Pulse Oximetry 100 100 100 08/14/18 20:00 08/14/18 20:30 08/14/18 21:00 Temperature 99.6 F Pulse Rate 79 84 83 Respiratory Rate 16 16 16 Blood Pressure 162/70 H 158/71 H 161/70 H Pulse Oximetry 100 100 100 08/14/18 21:30 08/14/18 22:00 08/14/18 22:30 Temperature Pulse Rate 76 75 73 Respiratory Rate 16 16 16 Blood Pressure 140/64 142/63 H 139/63 Pulse Oximetry 100 100 100 08/14/18 23:00 08/14/18 23:18 08/14/18 23:30 Temperature Pulse Rate 74 76 77 Respiratory Rate 16 16 16 Blood Pressure 138/61 140/65 Pulse Oximetry 100 99 100 08/15/18 00:00 08/15/18 00:23 08/15/18 01:00 Temperature 98.4 F Pulse Rate 77 78 73 Respiratory Rate 23 23 16 Blood Pressure Pulse Oximetry 100 100 100 08/15/18 01:13 08/15/18 02:00 08/15/18 02:13 Temperature Pulse Rate 73 77 77 Respiratory Rate 16 16 16 Blood Pressure 163/71 H 161/71 H Pulse Oximetry 100 100 99 08/15/18 03:00 08/15/18 03:13 08/15/18 03:22 Temperature Pulse Rate 73 73 82 Respiratory Rate 16 16 16 Blood Pressure 163/72 H Pulse Oximetry 99 99 100 08/15/18 04:00 08/15/18 04:13 08/15/18 04:47 Temperature 98.8 F Pulse Rate 77 89 72 Respiratory Rate 16 22 16 Blood Pressure 179/79 H 154/64 H Pulse Oximetry 99 96 100 08/15/18 05:00 08/15/18 05:13 08/15/18 06:00 Temperature Pulse Rate 72 72 75 Respiratory Rate 16 16 16 Blood Pressure 149/64 H Pulse Oximetry 100 100 100 08/15/18 06:13 08/15/18 07:00 08/15/18 07:13 Temperature Pulse Rate 74 75 74 Respiratory Rate 16 16 16 Blood Pressure 137/61 149/66 H Pulse Oximetry 100 100 100 08/15/18 08:00 08/15/18 08:13 08/15/18 08:22 Temperature Pulse Rate 90 117 H 118 H Respiratory Rate 26 H 16 20 Blood Pressure 154/75 H Pulse Oximetry 98 97 08/15/18 09:00 08/15/18 09:13 08/15/18 10:00 Temperature 98.7 F Pulse Rate 83 125 H 73 Respiratory Rate 22 16 16 Blood Pressure 152/71 H Pulse Oximetry 100 100 100 08/15/18 10:13 08/15/18 11:00 08/15/18 12:05 Temperature Pulse Rate 72 68 Respiratory Rate 16 16 Blood Pressure 136/60 Pulse Oximetry 100 100 100 Intake & Output 08/14/18 08/15/18 08/15/18 18:59 06:59 18:59 Intake Total 3488.2 / 3488.2 3542 / 3542 1021.2 / 1021.2 Output Total 1700 / 1700 2200 / 2200 Balance 1788.2 / 1788.2 1342 / 1342 1021.2 / 1021.2 Weight 106.6 kg Intake: IV 2788.2 / 2788.2 3028 / 3028 1021.2 / 1021.2 Diprivan 1000 mg/100 ml Inj 1, 200 / 200 390 / 390 100 / 100 000 mg In 100 ml @ 5 MCG/KG/MIN 2.634 mls/hr IV.CONT TITRATE PRN Rx#:[id number] NS Inj 1,000 ML @ 100 mls/hr IV 1000 / 1000 1950 / 1950 .CONT .Q10H SATYA Rx#:[id number] Zovirax Inj 700 MG In NS Inj 228 / 228 228 / 228 100 ML @ 114 mls/hr IV.SIG Q8H SATYA Rx#:[id number] Vimpat Inj 100 MG In NS Inj 100 110 / 110 110 / 110 110 / 110 ML @ 110 mls/hr IV.SIG Q12HR SATYA Rx#:[id number] MVI-12 Inj 10 ML Thiamine Inj 511.2 / 511.2 511.2 / 511.2 100 MG Folvite Inj 1 MG In D5W- 1/2 NS Inj 500 ML @ 127.8 mls/ hr IV.SIG DAILY SATYA Rx#: [id number] Zosyn 3.375 GM Premix 3.375 gm 100 / 100 100 / 100 50 / 50 In 50 ml @ 100 mls/hr IV.SIG Q6H SATYA Rx#:[id number] Vancomycin Inj 1,500 MG In NS 389 / 389 Inj 500 ML @ 250 mls/hr IV.SIG Q12H SATYA Rx#:[id number] fentaNYL 10 mcg/mL Premix Drip 250 / 250 250 / 250 250 / 250 2,500 mcg In 250 ml @ 50 MCG/HR 5 mls/hr IV.SIG TITRATE PRN Rx #:[id number] Tube Feeding 300 / 300 254 / 254 Tube Irrigant 60 / 60 Water Bolus Amount 400 / 400 200 / 200 Output: Urine Amount (Catheter) 1700 / 1700 2200 / 2200 Condom 100 / 100 500 / 500 Straight 1600 / 1600 1700 / 1700 Other: # Incontinent Voids 2 # Bowel Movements 0 - Constitutional no acute distress - Routine HEENT Exam Head: Present: normocephalic, atraumatic Eye: Present: EOMI, PERRL, normal accommodation, conjunctivae pink ENT: Present: mucous membranes moist - Routine Neck Exam Present: supple, trachea midline - Routine Respiratory Exam Present: patient mechanically ventilated, CTA bilaterally - Routine Cardiovascular Exam Present: RRR, S1, S2 - Routine Abdominal Exam Present: soft, normoactive bowel sounds - Routine Skin Exam Present: intact - Routine Neurological Exam Present: altered mental status - Urinary Catheter Management Indwelling Urethral Catheter Cath placed during this visit: yes, but has since been removed by the nurse Reason for continuing: Hourly intake/output Insertion date: 08/09/18 Insertion time: 18:30 Removal date: 08/11/18 Removal time: 09:50 Condom Cath placed during this visit: no Reason for continuing: Not indwelling catheter Straight Cath placed during this visit: yes Reason for continuing: Not indwelling catheter Insertion date: 08/14/18 Insertion time: 10:15 Assessment and Plan - Plan 1. VDRF 2. Aspiration pneumonia. 3. Encephalopathy. 4. Rhabdomyolysis with elevated CK. 5. C6 fracture. 6. Ethanol intoxication. 7. Anemia and thrombocytopenia. Plan Continue with vent support and maintain sats >92%. Bronchodilators, ICU vent bundle. SBT daily as miko. On PRVC RR16, TV 550, PEEP:5 and FIO2: 40%. Check CXR Monitor neuro status closely, daily sedation vacation. Neuro is following, On Acyclovir per Neuro. Continue Thiamine. S/p LP follow up on LP results/cx Abx- on vancomycin and Zosyn. Monitor for signs of infection( fever and WBC). 08/11 sputum culture: Normal resp sherman Monitor renal function and electrolyte replacement per protocol. Renal function is improving with Cr: 1.86 from 2.30 Doppler US LE negative for DVT Echocardiogram showed EF of 50% to 55%. GI and DVT prophylaxis. Continue treatment plan.
--- NOTE | 2018-08-15 14:18 | IR ---
EXAM DATE: 08/15/2018 12:04 PM EST AGE/SEX: 58 years / Male INDICATIONS: Patient presents with Altered Mental Status in need of Lumbar Puncture with opening pre ssure for evaluation. CLINICAL DATA: This is the patient's initial encounter. Patient reports that signs and symptoms have been present for 4 - 6 days and indicates a pain score of Nonresponsive. MEDICAL/SURGICAL HISTORY: . Unable to Obtain . Unable to Obtain. COMPARISON: No prior exams available for comparison. FLUORO TIME (min): 1.0 IMAGE SERIES: 1 RADIATION DOSE: 111.0 mGy ACCESS SITE: L2-3 LUMBAR PUNCTURE TIME: 1139 hours OPENING PRESSURE: 21 cm of water CLOSING PRESSURE: not requested FLUID: Total volume of 11.5 cc of clear fluid was removed. Fluid was sent to lab for ordered studies. ; . . PROCEDURE: 1. Fluoroscopic guided lumbar puncture. The risks, benefits and alternatives to the procedure were explained and verbal and written consent w as obtained. The site was prepped in sterile fashion. Full sterile technique was used, including ca p, mask, sterile gloves and gown and a large sterile sheet. Hand hygiene and 2% chlorhexidine and/or betadine/alcohol prep was utilized per protocol for cutaneous antisepsis. The skin and subcutaneous tissues were infiltrated with local anesthetic solution. With fluoroscopic guidance the lumbar thecal sac was punctured at the level above. The fluid describ ed above was removed without difficulty. The patient tolerated the procedure well and there were no complications. CONCLUSION: 1. Uncomplicated fluoroscopically guided lumbar puncture. Electronically signed by: Rai Denise MD Board Certified Radiologist 08/15/2018 2:17 PM EST
--- NOTE | 2018-08-15 14:38 | P.RAD ---
Post Procedure Progress Note - Pre Procedure Diagnosis (1) Altered mental status - Post Procedure Diagnosis (1) Altered mental status - Procedure Information Procedure Date: 08/15/18 Supervising Radiologist: Rai Denise MD Anesthesia: Local - Plan of Activity Patient to Unit: Critical Care Patient Condition: Poor See PACS Report for procedural detail/treatment. Spinal Procedure Lumbar Puncture L2-L3 Fluid Removal (CCs): 11 (opening pressure 21) Fluid Description: Clear
[2018-08-15] MEDS: Famotidine PF Inj 20 MG/2 ML Vial IV.PUSH SCH (20:33)
[2018-08-15] MEDS ORDERED: Acyclovir Inj 700 MG in Sodium Chlor 0.9% Inj 100 ML IV.SIG SCH (21:00)
[2018-08-15] MEDS: hydrALAZINE HCl Inj 20 MG/ML Vial IV.PUSH PRN (23:27)
[2018-08-16] MEDS: Sod Chloride 0.9% Inj 1,000 ML IV.CONT SCH ×2 (00:01→01:56)
[2018-08-16] MEDS: Artificial Tears Opth Drops 15 ML Bottle EACH EYE SCH ×3 (00:02→19:36)
[2018-08-16] MEDS: Propofol 1000 mg/100 ml Inj 1,000 MG/100 ML BOTTLE IV.CONT PRN ×5 (03:51→23:13)
[2018-08-16] MEDS: Oral Hygiene Kit OROPHARYNG SCH ×3 (03:51→19:34)
[2018-08-16] MEDS: fentaNYL 10 mcg/mL Premix Drip 2,500 MCG/250 ML BAG IV.SIG PRN ×3 (03:52→23:08)
--- NOTE | 2018-08-16 04:39 | XR ---
EXAM DATE: 08/16/2018 4:31 AM EST AGE/SEX: 58 years / Male INDICATIONS: Respiratory failure. CLINICAL DATA: This is the patient's subsequent encounter. Patient reports that signs and symptoms h ave been present for 4 - 6 days and indicates a pain score of Nonresponsive. MEDICAL/SURGICAL HISTORY: . Hypertension. ETOH abuse None. COMPARISON: [facility] [place], CHEST 1V SINGLE AP, 08/13/2018. . FINDINGS: Parenchymal consolidation and small effusions seen at both lung bases, both sides slightly worse in t he interim. No pneumothorax demonstrated. Heart size stable, within normal limits. Endotracheal tube tip is at the level of the thoracic inlet. There is a nasogastric tube coursing int o the stomach. CONCLUSION: Modest worsening parenchymal consolidation and small effusions at each base. Electronically signed by: Azam Lew MD Board Certified Radiologist 08/16/2018 4:38 AM EST
[2018-08-16 06:48] LABS: Baso % (Auto) 0.6 % (0.0-2.0); Eos # (Auto) 0.1 th/mm3 (0.0-0.4); Eos % (Auto) 3.8 % (0.0-4.0); Hematocrit 31.9 % (39.0-51.0); Hemoglobin 10.6 gm/dL (13.0-17.0); Lymph # (Auto) 0.3 th/mm3 (1.0-4.8); Lymph % (Auto) 9.5 % (9.0-44.0); Mean Corpuscular HGB Conc 33.4 % (32.0-36.0); Mean Corpuscular Hemoglobin 31.8 pg (27.0-34.0); Mean Corpuscular Volume 95.4 fL (80.0-100.0); Mean Platelet Volume 7.7 fL (7.0-11.0); Mono # (Auto) 0.4 th/mm3 (0.0-0.9); Mono % (Auto) 13.3 % (0.0-8.0); Neut % (Auto) 72.8 % (16.0-70.0); Platelet Count 195 th/mm3 (150-450); Red Blood Count 3.34 mil/mm3 (4.50-5.90); Red Cell Distribution Width 14.1 % (11.6-17.2); White Blood Count 2.8 th/mm3 (4.0-11.0)
[2018-08-16 07:12] LABS: Alanine Aminotransferase 54 U/L (12-78); Albumin 1.9 g/dL (3.4-5.0); Alkaline Phosphatase 105 U/L (45-117); Anion Gap 9 meq/L (5-15); Aspartate Aminotransferase 32 U/L (15-37); Blood Urea Nitrogen 14 mg/dL (7-18); Carbon Dioxide 24.9 meq/L (21.0-32.0); Chloride 113 meq/L (98-107); Glomerular Filtration Rate 66 mL/min (>89); Glucose,Random 94 mg/dL (74-106); Magnesium 2.7 mg/dL (1.5-2.5); Potassium 3.6 meq/L (3.5-5.1); Sodium 147 meq/L (136-145); Total Protein 5.4 g/dL (6.4-8.2)
[2018-08-16] MEDS: hydrALAZINE HCl Inj 20 MG/ML Vial IV.PUSH PRN (08:08)
[2018-08-16 09:06] LABS: ABG Base Excess -1.3 mmol/L (-2-2); ABG PCO2 38 mmHg (38-42); ABG PO2 92 mmHg (61-120)
--- NOTE | 2018-08-16 09:18 | P.PN ---
Subjective Interval history: Sedated and on vent support, FIo2 at 35 %, PEEP +5. restless when awake. ABG adequate. No fever. WBC 2.8. Physical Exam Vital signs: Vital Signs 08/15/18 09:13 08/15/18 10:00 08/15/18 10:13 Temperature 98.7 F Pulse Rate 125 H 73 72 Respiratory Rate 16 16 16 Blood Pressure 152/71 H 136/60 Pulse Oximetry 100 100 100 08/15/18 11:00 08/15/18 11:51 08/15/18 12:00 Temperature Pulse Rate 68 101 H 80 Respiratory Rate 16 15 21 Blood Pressure 123/60 Pulse Oximetry 100 100 08/15/18 12:05 08/15/18 12:49 08/15/18 13:00 Temperature Pulse Rate 75 74 Respiratory Rate 16 16 Blood Pressure 130/58 L 150/65 H Pulse Oximetry 100 97 98 08/15/18 14:00 08/15/18 15:00 08/15/18 16:00 Temperature Pulse Rate 73 71 68 Respiratory Rate 16 11 L 16 Blood Pressure 153/68 H 161/70 H 189/84 H Pulse Oximetry 99 99 99 08/15/18 16:42 08/15/18 17:00 08/15/18 17:01 Temperature Pulse Rate 68 68 Respiratory Rate 16 16 16 Blood Pressure 206/89 H 184/113 H Pulse Oximetry 99 99 99 08/15/18 17:06 08/15/18 18:00 08/15/18 18:22 Temperature Pulse Rate 102 H 68 68 Respiratory Rate 25 H 16 16 Blood Pressure 186/80 H 195/85 H 185/80 H Pulse Oximetry 97 99 99 08/15/18 19:00 08/15/18 19:46 08/15/18 20:00 Temperature Pulse Rate 69 65 66 Respiratory Rate 16 16 16 Blood Pressure 193/81 H 199/86 H Pulse Oximetry 100 100 100 08/15/18 21:00 08/15/18 22:00 08/15/18 23:00 Temperature 97.7 F Pulse Rate 68 62 60 Respiratory Rate 16 16 16 Blood Pressure 192/80 H 186/79 H 193/82 H Pulse Oximetry 100 100 100 08/15/18 23:27 08/16/18 00:00 08/16/18 01:00 Temperature 97.6 F Pulse Rate 61 65 62 Respiratory Rate 16 16 16 Blood Pressure 157/66 H 157/69 H Pulse Oximetry 100 100 100 08/16/18 02:00 08/16/18 02:18 08/16/18 03:00 Temperature Pulse Rate 59 L 64 59 L Respiratory Rate 16 18 16 Blood Pressure 193/84 H 173/79 H 151/69 H Pulse Oximetry 100 100 100 08/16/18 03:47 08/16/18 03:59 08/16/18 04:00 Temperature Pulse Rate 70 59 L Respiratory Rate 22 18 16 Blood Pressure 165/77 H Pulse Oximetry 100 100 08/16/18 05:00 08/16/18 06:00 08/16/18 07:00 Temperature Pulse Rate 59 L 56 L 55 L Respiratory Rate 16 16 16 Blood Pressure Pulse Oximetry 100 100 100 08/16/18 07:29 08/16/18 07:54 08/16/18 08:00 Temperature 97.6 F Pulse Rate 55 L 56 L 55 L Respiratory Rate 16 16 16 Blood Pressure 168/83 H Pulse Oximetry 100 100 100 08/16/18 08:02 08/16/18 08:10 08/16/18 08:13 Temperature Pulse Rate 55 L 58 L 60 Respiratory Rate 16 16 16 Blood Pressure 175/78 H 163/82 H 172/82 H Pulse Oximetry 100 100 100 Intake & Output 08/15/18 08/16/18 08/16/18 18:59 06:59 18:59 Intake Total 2025.2 / 2025.2 1206 / 1206 Output Total 2450 / 2450 675 / 675 Balance -424.8 / -424.8 531 / 531 Weight 101.1 kg Intake: IV 1585.2 / 1585.2 510 / 510 Diprivan 1000 mg/100 ml Inj 1, 200 / 200 270 / 270 000 mg In 100 ml @ 5 MCG/KG/MIN 2.634 mls/hr IV.CONT TITRATE PRN Rx#:[id number] Vimpat Inj 100 MG In NS Inj 100 110 / 110 ML @ 110 mls/hr IV.SIG Q12HR SATYA Rx#:[id number] Magnesium Sulfate Inj 4 GM In 100 / 100 NS Inj 92 ML @ 25 mls/hr IV.SIG ONCE ONE Rx#:[id number] MVI-12 Inj 10 ML Thiamine Inj 511.2 / 511.2 100 MG Folvite Inj 1 MG In D5W- 1/2 NS Inj 500 ML @ 127.8 mls/ hr IV.SIG DAILY [facility] Rx#: [id number] Zosyn 3.375 GM Premix 3.375 gm 50 / 50 In 50 ml @ 100 mls/hr IV.SIG Q6H [facility] Rx#:[id number] fentaNYL 10 mcg/mL Premix Drip 500 / 500 240 / 240 2,500 mcg In 250 ml @ 50 MCG/HR 5 mls/hr IV.SIG TITRATE PRN Rx #:[id number] Tube Feeding 40 / 40 296 / 296 Water Bolus Amount 400 / 400 400 / 400 Output: Urine Amount (Catheter) 2450 / 2450 675 / 675 Condom 0 / 0 Straight 2450 / 2450 675 / 675 Other: Date of Last Bowel Movement 08/15/18 08/15/18 GENERAL: Sedated intubated. SKIN: Warm and dry. HEAD: Atraumatic. Normocephalic. EYES: Pupils equal and round. No scleral icterus. No injection or drainage. ENT: No nasal bleeding or discharge. Mucous membranes pink and moist. NECK: Trachea midline. No JVD. CARDIOVASCULAR: Regular rate and rhythm. RESPIRATORY: No accessory muscle use. Occ wheeze and Breath sounds decreased bilaterally. GASTROINTESTINAL: Abdomen soft, non-tender, nondistended. Hepatic and splenic margins not palpable. MUSCULOSKELETAL: Extremities without clubbing, cyanosis, but has 1 + edema of legs. No obvious deformities. NEUROLOGICAL: Sedated on the vent. PSYCHIATRIC: cannot assess. Narrative: Intubated limited exam no involuntary movements on propofol drip - Urinary Catheter Management Indwelling Urethral Catheter Cath placed during this visit: yes, but has since been removed by the nurse Reason for continuing: Hourly intake/output Insertion date: 08/09/18 Insertion time: 18:30 Removal date: 08/11/18 Removal time: 09:50 Condom Cath placed during this visit: no Reason for continuing: Not indwelling catheter Straight Cath placed during this visit: yes Reason for continuing: Not indwelling catheter Insertion date: 08/16/18 Insertion time: 02:30 Results - Labs CBC & Chem 7: 08/16/18 06:10 08/16/18 06:10 Laboratory Results - last 24 hr 08/15/18 08/15/18 08/15/18 11:39 11:39 11:39 WBC RBC Hgb Hct MCV MCH MCHC RDW Plt Count MPV Neut % (Auto) Lymph % (Auto) [place] % (Auto) Eos % (Auto) Baso % (Auto) Neut # (Auto) Lymph # (Auto) [place] # (Auto) Eos # (Auto) Baso # (Auto) WBC Differential Differential Comment Puncture Site Patient Temperature O2 Saturation ABG pH ABG pCO2 ABG pO2 ABG HCO3 ABG O2 Content ABG Base Excess ABG Methemoglobin [place] Test Hemoglobin Carboxyhemoglobin O2 Delivery Device Vent Setting Inspired O2 Critical Value Sodium Potassium Chloride Carbon Dioxide Anion Gap BUN Creatinine Estimated GFR Random Glucose Calcium Phosphorus Magnesium Total Bilirubin AST ALT Alkaline Phosphatase Total Protein Albumin CSF Volume (1) 3.0 CSF Supernat Color (1) Clear CSF Gross Blood (1) 1+ A CSF Volume (2) 2.4 CSF Supernat Color (2) Clear CSF Gross Blood (2) Trace A CSF Volume (3) 2.0 CSF Supernat Color (3) Clear CSF Gross Blood (3) Trace A CSF Volume (4) 3.2 CSF Supernat Color (4) Clear CSF Gross Blood (4) Trace A CSF WBC (4) 2 CSF RBC (4) 10 H CSF Neutrophils % 0 CSF Lymphocytes % 70 CSF Monocytes % 30 CSF Glucose 61 CSF Total Protein Ser Oligoclonal Bands CSF Oligoclonal Bands CSF Olig Protein Interp CSF Herpes I DNA (PCR) CSF Herpes II DNA (PCR) CSF N.mening B/E.coli K1 Cancelled CSF N.meningitidis A/Y Cancelled Bacterial Ag Source Cancelled H.influenzae Type B Ag Cancelled N. meningitidis C/W 135 Cancelled Group B Strep Antigen Cancelled S. pneumoniae Antigen Cancelled 08/15/18 08/15/18 08/15/18 11:39 11:39 11:39 WBC RBC Hgb Hct MCV MCH MCHC RDW Plt Count MPV Neut % (Auto) Lymph % (Auto) [place] % (Auto) Eos % (Auto) Baso % (Auto) Neut # (Auto) Lymph # (Auto) [place] # (Auto) Eos # (Auto) Baso # (Auto) WBC Differential Differential Comment Puncture Site Patient Temperature O2 Saturation ABG pH ABG pCO2 ABG pO2 ABG HCO3 ABG O2 Content ABG Base Excess ABG Methemoglobin [place] Test Hemoglobin Carboxyhemoglobin O2 Delivery Device Vent Setting Inspired O2 Critical Value Sodium Potassium Chloride Carbon Dioxide Anion Gap BUN Creatinine Estimated GFR Random Glucose Calcium Phosphorus Magnesium Total Bilirubin AST ALT Alkaline Phosphatase Total Protein Albumin CSF Volume (1) CSF Supernat Color (1) CSF Gross Blood (1) CSF Volume (2) CSF Supernat Color (2) CSF Gross Blood (2) CSF Volume (3) CSF Supernat Color (3) CSF Gross Blood (3) CSF Volume (4) CSF Supernat Color (4) CSF Gross Blood (4) CSF WBC (4) CSF RBC (4) CSF Neutrophils % CSF Lymphocytes % CSF Monocytes % CSF Glucose CSF Total Protein 44.8 Ser Oligoclonal Bands Cancelled CSF Oligoclonal Bands Cancelled CSF Olig Protein Interp Cancelled CSF Herpes I DNA (PCR) Negative CSF Herpes II DNA (PCR) Negative CSF N.mening B/E.coli K1 CSF N.meningitidis A/Y Bacterial Ag Source H.influenzae Type B Ag N. meningitidis C/W 135 Group B Strep Antigen S. pneumoniae Antigen 08/16/18 08/16/18 08/16/18 06:10 06:10 08:57 WBC 2.8 L RBC 3.34 L Hgb 10.6 L Hct 31.9 L MCV 95.4 MCH 31.8 MCHC 33.4 RDW 14.1 Plt Count 195 MPV 7.7 Neut % (Auto) 72.8 H Lymph % (Auto) 9.5 [place] % (Auto) 13.3 H Eos % (Auto) 3.8 Baso % (Auto) 0.6 Neut # (Auto) 2.0 Lymph # (Auto) 0.3 L [place] # (Auto) 0.4 Eos # (Auto) 0.1 Baso # (Auto) 0.0 WBC Differential . Differential Comment Auto diff final Puncture Site Right radial Patient Temperature 98.6 O2 Saturation 95 ABG pH 7.40 ABG pCO2 38 ABG pO2 92 ABG HCO3 23 ABG O2 Content 16.6 ABG Base Excess -1.3 ABG Methemoglobin 1.3 [place] Test Present Hemoglobin 12.3 Carboxyhemoglobin 0.8 O2 Delivery Device Ventilator Vent Setting Prvc/ac Inspired O2 35 Critical Value No Sodium 147 H Potassium 3.6 Chloride 113 H Carbon Dioxide 24.9 Anion Gap 9 BUN 14 Creatinine 1.15 Estimated GFR 66 L Random Glucose 94 Calcium 8.0 L Phosphorus 4.0 D Magnesium 2.7 H D Total Bilirubin 0.5 AST 32 ALT 54 Alkaline Phosphatase 105 Total Protein 5.4 L Albumin 1.9 L CSF Volume (1) CSF Supernat Color (1) CSF Gross Blood (1) CSF Volume (2) CSF Supernat Color (2) CSF Gross Blood (2) CSF Volume (3) CSF Supernat Color (3) CSF Gross Blood (3) CSF Volume (4) CSF Supernat Color (4) CSF Gross Blood (4) CSF WBC (4) CSF RBC (4) CSF Neutrophils % CSF Lymphocytes % CSF Monocytes % CSF Glucose CSF Total Protein Ser Oligoclonal Bands CSF Oligoclonal Bands CSF Olig Protein Interp CSF Herpes I DNA (PCR) CSF Herpes II DNA (PCR) CSF N.mening B/E.coli K1 CSF N.meningitidis A/Y Bacterial Ag Source H.influenzae Type B Ag N. meningitidis C/W 135 Group B Strep Antigen S. pneumoniae Antigen Microbiology 08/11/18 14:29 Blood - Peripheral Aerobic Blood Culture - Preliminary No growth in 4 days 08/11/18 14:29 Blood - Peripheral Anaerobic Blood Culture - Preliminary No growth in 4 days 08/11/18 14:24 Blood - Peripheral Aerobic Blood Culture - Preliminary No growth in 4 days 08/11/18 14:24 Blood - Peripheral Anaerobic Blood Culture - Preliminary No growth in 4 days - Imaging Impressions Lumbar Puncture Fluoroscopy 08/15/18 12:27 CONCLUSION: 1. Uncomplicated fluoroscopically guided lumbar puncture. Chest X-Ray 08/16/18 06:00 CONCLUSION: Modest worsening parenchymal consolidation and small effusions at each base. Assessment and Plan - Assessment (1) Respiratory failure requiring intubation Code(s): J96.90 - Respiratory failure, unspecified, unspecified whether with hypoxia or hypercapnia Status: Acute (2) Pneumonia Code(s): J18.9 - Pneumonia, unspecified organism Status: Acute (3) Seizure Code(s): R56.9 - Unspecified convulsions Status: Acute (4) Hypertensive urgency Code(s): I16.0 - Hypertensive urgency Status: Acute (5) Alcohol intoxication Code(s): F10.929 - Alcohol use, unspecified with intoxication, unspecified Status: Acute (6) Altered mental status Code(s): R41.82 - Altered mental status, unspecified Status: Acute (7) Delirium due to general medical condition Code(s): F05 - Delirium due to known physiological condition Status: Acute - Plan 1. Wean vent to CPAP and check ABG 2. Reduce sedation. 3. ABG and resp parameters . 4. Continue Duoneb nebs Q6H 5. CBC,CXR ,BMP in am 6. Tube feeds at 50 CC 7. Seizure precautions.
[2018-08-16] MEDS: Carvedilol 6.25 MG Tablet PO SCH ×2 (09:54→20:09)
[2018-08-16] MEDS: Folic Acid 1 MG Tablet PO SCH (09:54)
[2018-08-16] MEDS: chlordiazePOXIDE 25 MG Capsule PO SCH ×2 (09:55→20:09)
[2018-08-16] MEDS: Chlorhexidine 0.12% Oral Kit 15 ML UDC OROPHARYNG SCH ×2 (09:55→20:09)
[2018-08-16] MEDS: Famotidine PF Inj 20 MG/2 ML Vial IV.PUSH SCH ×2 (09:56→20:10)
[2018-08-16] MEDS: Multivitamin Inj 10 ML, Thiamine Inj 100 MG, Folic Acid Inj 1 MG in Dextrose 5%/NaCl 0.... IV.SIG SCH (09:56)
[2018-08-16] MEDS: Polyethylene Glycol 3350 17 GM Packet PO SCH ×2 (09:57→20:10)
[2018-08-16] MEDS: Senna/Docusate Sodium 8.6/50 MG Tablet PO SCH ×2 (09:58→20:11)
[2018-08-16] MEDS: Dexmedetomidine Inj 200 MCG in Sodium Chlor 0.9% Inj 48 ML IV.CONT PRN ×3 (10:21→15:12)
[2018-08-16] MEDS ORDERED: Potassium Chloride 25 MEQ Effervescent Tablet PO ONE (10:23)
--- NOTE | 2018-08-16 10:28 | P.PNCC ---
Subjective Subjective Remarks/Hospital Course: 08/09: 58-year-old male who was found down in his friend's garage this morning. He has a history of alcohol abuse. He recently sold his house and was staying at a friend's home. Reportedly he was due to fly later today. Patient was brought to the ER by EMS and was noted to have involuntary movements with jerking movements involving upper and lower extremities as well as his head. He received Ativan 3 mg IV and was loaded with Keppra. Initially stroke alert was called. Head CT was negative for any bleed however there was question of C6 fracture. Neurology and neurosurgery were consulted. Patient was loaded with IV Cerebyx and Vimpat by neurology. He had a [place] J collar placed after placing hard cervical collar by neurosurgery. When I evaluated the patient in the ER he was still having involuntary movements which appeared to be episodic with occasional twitchings on his face and nystagmus. This did not appear to be generalized tonic-clonic convulsions however appeared more like an extrapyramidal reaction. I ordered a stat EEG. Patient moving around too much to obtain MRI at this time. His urine tox screen was negative. He was positive for alcohol. Patient nonverbal. His involuntary movements get exaggerated on stimulation. He was reportedly completely normal yesterday. 08/10: Patient had an episode of emesis last night followed by labored breathing. He continued to have involuntary movements. He was intubated and placed on mechanical ventilation. Currently sedated with propofol, orally intubated on mechanical ventilation. Awaiting MRI brain and C-spine. EEG done yesterday did not show any seizure activity. 08/11: Sedated, orally intubated on mechanical ventilation. MRI brain unremarkable. MRI C-spine with hairline C6 fracture with no displacement. 08/12: Remains sedated, orally intubated on mechanical ventilation. Reintubated yesterday for significant hypoxia and respiratory distress with O2 sats dropping to the 70s despite nonrebreather facemask. CT pulmonary angiogram was negative for PE and showed bilateral infiltrates at the bases. 08/13: Remains sedated, orally intubated on mechanical ventilation. On propofol /fentanyl GTT. Starting tube feeds 08/14: T-max 99.4. Currently 98.3. Scheduled for IR for lumbar puncture today. Patient acute injury. Patient is on vancomycin, acyclovir and did receive IV contrast recently. Renal ultrasound ordered. Urine eosinophils, sodium and creatinine ordered. Arousable and does follow commands on the ventilator. Breakthrough agitation/involuntary systemic movements noted 08/15: Plan for lumbar puncture today. Will likely try sedation vacation overnight. See 4 mg of midazolam overnight due to agitation. Appears comfortable. Intermittently follows commands. SUBJECTIVE: 08/16: Lumbar puncture from yesterday accomplished. We will try sedation vacation again today and tried on dexmedetomidine drip. Rash is much improved. Discontinued lacosamide possible source of rash. Remains leukopenic and elevated eosinophils. Objective Vital Signs / I&O: Vital Signs 08/15/18 11:00 08/15/18 11:51 08/15/18 12:00 Temperature Pulse Rate 68 101 H 80 Respiratory Rate 16 15 21 Blood Pressure 123/60 Pulse Oximetry 100 100 08/15/18 12:05 08/15/18 12:49 08/15/18 13:00 Temperature Pulse Rate 75 74 Respiratory Rate 16 16 Blood Pressure 130/58 L 150/65 H Pulse Oximetry 100 97 98 08/15/18 14:00 08/15/18 15:00 08/15/18 16:00 Temperature Pulse Rate 73 71 68 Respiratory Rate 16 11 L 16 Blood Pressure 153/68 H 161/70 H 189/84 H Pulse Oximetry 99 99 99 08/15/18 16:42 08/15/18 17:00 08/15/18 17:01 Temperature Pulse Rate 68 68 Respiratory Rate 16 16 16 Blood Pressure 206/89 H 184/113 H Pulse Oximetry 99 99 99 08/15/18 17:06 08/15/18 18:00 08/15/18 18:22 Temperature Pulse Rate 102 H 68 68 Respiratory Rate 25 H 16 16 Blood Pressure 186/80 H 195/85 H 185/80 H Pulse Oximetry 97 99 99 08/15/18 19:00 08/15/18 19:46 08/15/18 20:00 Temperature Pulse Rate 69 65 66 Respiratory Rate 16 16 16 Blood Pressure 193/81 H 199/86 H Pulse Oximetry 100 100 100 08/15/18 21:00 08/15/18 22:00 08/15/18 23:00 Temperature 97.7 F Pulse Rate 68 62 60 Respiratory Rate 16 16 16 Blood Pressure 192/80 H 186/79 H 193/82 H Pulse Oximetry 100 100 100 08/15/18 23:27 08/16/18 00:00 08/16/18 01:00 Temperature 97.6 F Pulse Rate 61 65 62 Respiratory Rate 16 16 16 Blood Pressure 157/66 H 157/69 H Pulse Oximetry 100 100 100 08/16/18 02:00 08/16/18 02:18 08/16/18 03:00 Temperature Pulse Rate 59 L 64 59 L Respiratory Rate 16 18 16 Blood Pressure 193/84 H 173/79 H 151/69 H Pulse Oximetry 100 100 100 08/16/18 03:47 08/16/18 03:59 08/16/18 04:00 Temperature Pulse Rate 70 59 L Respiratory Rate 22 18 16 Blood Pressure 165/77 H Pulse Oximetry 100 100 08/16/18 05:00 08/16/18 06:00 08/16/18 07:00 Temperature Pulse Rate 59 L 56 L 55 L Respiratory Rate 16 16 16 Blood Pressure Pulse Oximetry 100 100 100 08/16/18 07:29 08/16/18 07:54 08/16/18 08:00 Temperature 97.6 F Pulse Rate 55 L 56 L 55 L Respiratory Rate 16 16 16 Blood Pressure 168/83 H Pulse Oximetry 100 100 100 08/16/18 08:02 08/16/18 08:10 08/16/18 08:13 Temperature Pulse Rate 55 L 58 L 60 Respiratory Rate 16 16 16 Blood Pressure 175/78 H 163/82 H 172/82 H Pulse Oximetry 100 100 100 Intake & Output 08/15/18 08/16/18 08/16/18 18:59 06:59 18:59 Intake Total 2025.2 / 2025.2 1206 / 1206 Output Total 2450 / 2450 675 / 675 Balance -424.8 / -424.8 531 / 531 Weight 101.1 kg Intake: IV 1585.2 / 1585.2 510 / 510 Diprivan 1000 mg/100 ml Inj 1, 200 / 200 270 / 270 000 mg In 100 ml @ 5 MCG/KG/MIN 2.634 mls/hr IV.CONT TITRATE PRN Rx#:[id number] Vimpat Inj 100 MG In NS Inj 100 110 / 110 ML @ 110 mls/hr IV.SIG Q12HR SATYA Rx#:[id number] Magnesium Sulfate Inj 4 GM In 100 / 100 NS Inj 92 ML @ 25 mls/hr IV.SIG ONCE ONE Rx#:[id number] MVI-12 Inj 10 ML Thiamine Inj 511.2 / 511.2 100 MG Folvite Inj 1 MG In D5W- 1/2 NS Inj 500 ML @ 127.8 mls/ hr IV.SIG DAILY [facility] Rx#: [id number] Zosyn 3.375 GM Premix 3.375 gm 50 / 50 In 50 ml @ 100 mls/hr IV.SIG Q6H [facility] Rx#:[id number] fentaNYL 10 mcg/mL Premix Drip 500 / 500 240 / 240 2,500 mcg In 250 ml @ 50 MCG/HR 5 mls/hr IV.SIG TITRATE PRN Rx #:[id number] Tube Feeding 40 / 40 296 / 296 Water Bolus Amount 400 / 400 400 / 400 Output: Urine Amount (Catheter) 2450 / 2450 675 / 675 Condom 0 / 0 Straight 2450 / 2450 675 / 675 Other: Date of Last Bowel Movement 08/15/18 08/15/18 Result Diagrams: 08/16/18 06:10 08/16/18 06:10 Other Results: ITS Impressions Microbiology 08/11/18 14:29 Blood - Peripheral Aerobic Blood Culture - Preliminary No growth in 4 days 08/11/18 14:29 Blood - Peripheral Anaerobic Blood Culture - Preliminary No growth in 4 days 08/11/18 14:24 Blood - Peripheral Aerobic Blood Culture - Preliminary No growth in 4 days 08/11/18 14:24 Blood - Peripheral Anaerobic Blood Culture - Preliminary No growth in 4 days 08/11/18 15:00 Sputum - Endotracheal Gram Stain - Final 08/11/18 15:00 Sputum - Endotracheal Sputum Culture - Final Heavy growth normal respiratory sherman 08/09/18 11:00 Catheterized Urine Urine Culture - Final No growth in 48 hours Imaging: ITS Impressions Head CT 08/09/18 09:20 CONCLUSION: 1. No acute intracranial abnormality is seen. 2. Mild widening of the cortical sulci which could suggest some atrophy. Report was called by [Dr. Dutton to at 9:49 AM. ] Cervical Spine CT 08/09/18 09:23 CONCLUSION: 1. Fracturing through anterior flowing spurs at the anterior C6 level with the fracture extending into the anterior inferior left lateral aspect of the C6 vertebral body. Empty displacement is not seen. No other possible fractures are seen. 2. 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 3. Degenerative change. Head CTA 08/09/18 09:28 CONCLUSION: Negative CTA. Report was called by [Dr. Dutton to Dr. Faustin. A message was left on the voicemail. ] Neck CTA 08/09/18 09:28 CONCLUSION: Negative CTA of the neck. Cervical Spine MRI 08/10/18 00:00 CONCLUSION: 1. Fracturing through the prominent flowing spurs at the C6 level and extending into the anterior inferior aspect of C6 vertebral body without displacement. Minimal edema seen around the fracture site. 2. Prominent spurring extending from C4 to into the thoracic spine consistent with DISH. 3. Mild central disc protrusion at the C3-C4 level. 4. Mild disc protrusion with the apex at the left lateral recess region at the C5-C6 level. 5. Neural foraminal narrowing at the C3-C4 and C5-C6 levels. Head MRI 08/10/18 00:00 CONCLUSION: 1. No acute intracranial abnormality. 2. Mild atrophy. Lumbar Spine CT 08/10/18 00:00 CONCLUSION: 1. No acute abnormality seen. 2. Prominent spur seen throughout the thoracic and lumbar spine likely from DISH. 3. Mild disc bulges at the L3-L4 and L4-L5 levels. 4. Lower lumbar facet hypertrophy. Thoracic Spine CT 08/10/18 00:00 CONCLUSION: 1. No fracture is seen. 2. Prominent spurring seen throughout the thoracic spine but be secondary to DISH. 3. Subpleural areas of consolidation or atelectasis at the posterior lower lungs. Chest CTA 08/11/18 00:00 CONCLUSION: 1. No evidence of any pulmonary embolism. 2. There are bilateral infiltrates predominantly in the posterior mid to lower lung villarreal. 3. 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 Venous Doppler Study 08/14/18 00:00 CONCLUSION: 1. Occlusive and nonocclusive thrombus within the bilateral cephalic veins. Abdomen/Bladder Ultrasound 08/14/18 07:24 CONCLUSION: 1. Mild prominence of the right collecting system suggestive of some mild hydronephrosis. 2. The left kidney is unremarkable. 3. The urinary bladder appears to be distended with a volume of 1554 mL. Lumbar Puncture Fluoroscopy 08/15/18 12:27 CONCLUSION: 1. Uncomplicated fluoroscopically guided lumbar puncture. Chest X-Ray 08/16/18 06:00 CONCLUSION: Modest worsening parenchymal consolidation and small effusions at each base. Objective Remarks: GENERAL: 58-year-old male currently orotracheally intubated no acute distress SKIN: Warm and dry. Positive diffuse maculopapular rash blanchable. Involving face, thorax and lower extremities improved. No signs of blisters HEAD: Atraumatic. Normocephalic. EYES: Pupils equal and round. No scleral icterus. No injection or drainage. ENT: No nasal bleeding or discharge. Mucous membranes pink and moist. NECK: Trachea midline. No JVD. CARDIOVASCULAR: Regular rate and rhythm. S1, S2. No S4. No murmur RESPIRATORY: No accessory muscle use. Clear to auscultation. Breath sounds equal bilaterally. GASTROINTESTINAL: Abdomen soft, non-tender, nondistended. Hypoactive bowel sounds are appreciated MUSCULOSKELETAL: Extremities without significant peripheral edema. No obvious deformities. NEUROLOGICAL: Awake and alert. Occasional fine tremor type movements resolved. Follows commands off sedation. Extremely agitated at times. Moves all 4 extremities spontaneously and to command. Positive cough and gag Assessment and Plan - Assessment and Plan Plan: Neuro/Psych: Acute toxic metabolic encephalopathy Involuntary movements -EEG 08/09- for epileptiform activity Anterior C6 fracture -[place] J collar times 6 weeks EtOH abuse/withdrawal. Level 114 admission Currently on propofol at 50 william grams per kilogram per minute/fentanyl drip at 250 william grams an hour for sedation/analgesia while intubated Dexmedetomidine drip added 08/14 for weaning Follow neuro checks. Neurology neurosurgery consulted. EEG done in ER did not reveal any seizure activity with ongoing involuntary movements. MRI brain unremarkable, MRI C-spine nondisplaced C6 fracture, continue [place] J collar for 6 weeks per neurosurgery. Aspirin placed on hold for lumbar puncture. Currently on lacosamide 100 mg IV twice daily per neurology Started thiamine/MVI/folic acid daily and history of EtOH abuse Ordered [facility] protocol with lorazepam as needed for suspected alcohol withdrawal Currently on chlordiazepoxide 25 mg mg twice daily. 08/15 discontinued quetiapine 50 mg twice daily due to rash Neurology started acyclovir IV while awaiting lumbar puncture. This discontinued 08/15 with negative HSV Cardiovascular: Hypertensive emergency Elevated cholesterol/total Elevated HDL Rhabdomyolysis downtrending CPK to 1000 Initially was hypertensive on arrival. Hydralazine and labetalol as needed. Continue carvedilol 6.25 mg p.o. twice daily Troponin 0.04 Pulmonary: Acute hypoxic hypercapnic respiratory failure Intubated for airway protection and placed on mechanical ventilation following episode of emesis with question of aspiration on 08/10 AM. PRVC ventilation 16//01/15 vent bundle, Albuterol/ipratropium aerosols every 4 hours with albuterol aerosols every 2 hours as needed dyspnea tolerated CPAP trial and extubated on 08/11 however about 5 hours following extubation and required reintubation for hypoxic respiratory failure of unclear etiology. CT pulmonary angiogram negative for PE but possible right subclavian thrombus. Check upper extremity Dopplers today.. Consulted pulmonary for further evaluation of hypoxic respiratory failure Chest x-ray in a.m. 08/17 GI/liver: Elevated transaminases downward trending Hypoalbuminemia with moderate protein calorie malnutrition Continue tube feeds with Nepro goal 50 cc an hour and advance to goal as tolerated. Famotidine 20 mg daily for GI prophylaxis Docusate sodium/senna 1 tablet twice daily for bowel regimen. Added polyethylene glycol 17 g twice daily and lactulose 30 cc twice daily Negative hepatitis panel FEN/renal/: Acute kidney injury resolving Acute hypokalemia and hypomagnesia Hyperphosphatemia Urinary retention with mild bilateral hydronephrosis IV hydration, strict intake output, monitor and replete electrolytes, follow BUN /creatinine. Bicarbonate drip discontinued 08/13. Free water 200 cc every 8 hours Potassium chloride 25 mEq by tube x1 now. Recheck in a.m. Avoid nephrotoxic medications. Will Place Goff if needed for urinary retention. 700 cc last straight catheterization. ID: [id number] discontinued vancomycin, piperacillin/tazobactam and acyclovir. Watch for fever/leukocytosis Blood cultures x21 10/10 no growth to date Sputum 08/11 no growth to date Number puncture with IR today 08/15-negative HSV. Endocrine: Watch for hyperglycemia, SSI for glycemic control with aspart insulin/low regimen every 6 hours Normal TSH Heme: Macrocytic anemia Leukopenia Documentation of prior possible right subclavian occlusion -negative Doppler Bilateral cephalic occlusive and nonocclusive superficial venous thrombosis Follow CBC. No indication for transfusion of blood products at this time We will start subcu heparin 24 hours post lumbar puncture MSK: Elevated BMI Diffuse idiopathic skeletal hyperostosis Possible drug rash Weight loss encouraged PT evaluate and treat On IV famotidine, diphenhydramine. Received 1 dose of dexamethasone yesterday. Follow Prophylaxis: SCDs. heparin 5000 units subcutaneously every 8 hourly 24 hours post lumbar puncture, famotidine for GI prophylaxis Condition critical Time spent on critical care excluding procedures 30 minutes
[2018-08-16] MEDS: Aspirin 300 MG Supp RECTAL SCH (12:28)
[2018-08-16] MEDS: hydrALAZINE 25 MG Tablet PO SCH ×2 (15:16→19:37)
[2018-08-16 22:31] LABS: Enterovirus (PCR)Source CSF; Enterovirus RNA Qual (PCR) Negative (Negative)
[2018-08-16] MEDS ORDERED: Acetaminophen 325 MG Tablet PO PRN (23:23)
[2018-08-17 00:44] LABS: Bilirubin,Urine Negative (Negative); Clarity,Urine Clear (Clear); Color,Urine Yellow (Yellw/Straw); Glucose,Urine (UA) Negative (Negative); Leukocyte Esterase,Urine Negative (Negative); Mucus,Urine Few /lpf (Occasional); Nitrite,Urine Negative (Negative); Squamous Epithelial Cell,Urine <1 /hpf (0-5)
[2018-08-17] MEDS: Artificial Tears Opth Drops 15 ML Bottle EACH EYE SCH ×3 (01:07→18:03)
[2018-08-17] MEDS: Oral Hygiene Kit OROPHARYNG SCH ×4 (01:07→16:25)
[2018-08-17] MEDS: Propofol 1000 mg/100 ml Inj 1,000 MG/100 ML BOTTLE IV.CONT PRN ×2 (02:03→05:40)
[2018-08-17] MEDS: hydrALAZINE HCl Inj 20 MG/ML Vial IV.PUSH PRN ×3 (06:35→22:06)
[2018-08-17] MEDS ORDERED: Midazolam Inj 5 MG/ML 1 ML Vial ONE (09:37)
[2018-08-17] MEDS ORDERED: Vancomycin Consult Pharmacy OTHER PRN (09:54)
--- NOTE | 2018-08-17 09:56 | P.PCN ---
Date of procedure: 08/17/18 Pre-op diagnosis: Acute respiratory failure Post-op diagnosis: same Procedure: DATE: 08/17/2018 PROCEDURE: Orotracheal intubation INDICATION: Acute hypoxemic respiratory failure DETAILS OF PROCEDURE The patient was placed in optimal position and preoxygenated with 100% FiO2 via bag valve mask. At the start oxygen saturation was 83 %. The patient was administered 5 mg of midazolam IV and [address] Arshad held head in position with in-line stabilization pulling axially. C-collar was removed. I entered the oropharynx with a size 4 laryngoscope blade and obtained a grade 2 view of the airway. On single attempt a size 8.5 cuffed endotracheal tube was passed through the vocal cords. Correct tube location was confirmed with end tidal CO2 detector and by auscultating over bilateral lung villarreal. The endotracheal tube was secured with adhesive tape at a depth of 24 cm at the lips. The patient was connected to the ventilator. The patient tolerated the procedure well without any apparent complications. C-collar was replaced. Oxygen saturations were maintained greater than 92% all times. STAT chest x-ray pending at time of dictation.
[2018-08-17] MEDS ORDERED: Potassium Chloride 25 MEQ Effervescent Tablet PO ONE ×2 (10:00→14:28)
[2018-08-17] MEDS ORDERED: Midazolam Inj 5 MG/ML 1 ML Vial IV.PUSH ONE (10:00)
--- NOTE | 2018-08-17 10:00 | P.PNCC ---
Subjective Subjective Remarks/Hospital Course: 08/09: 58-year-old male who was found down in his friend's garage this morning. He has a history of alcohol abuse. He recently sold his house and was staying at a friend's home. Reportedly he was due to fly later today. Patient was brought to the ER by EMS and was noted to have involuntary movements with jerking movements involving upper and lower extremities as well as his head. He received Ativan 3 mg IV and was loaded with Keppra. Initially stroke alert was called. Head CT was negative for any bleed however there was question of C6 fracture. Neurology and neurosurgery were consulted. Patient was loaded with IV Cerebyx and Vimpat by neurology. He had a [place] J collar placed after placing hard cervical collar by neurosurgery. When I evaluated the patient in the ER he was still having involuntary movements which appeared to be episodic with occasional twitchings on his face and nystagmus. This did not appear to be generalized tonic-clonic convulsions however appeared more like an extrapyramidal reaction. I ordered a stat EEG. Patient moving around too much to obtain MRI at this time. His urine tox screen was negative. He was positive for alcohol. Patient nonverbal. His involuntary movements get exaggerated on stimulation. He was reportedly completely normal yesterday. 08/10: Patient had an episode of emesis last night followed by labored breathing. He continued to have involuntary movements. He was intubated and placed on mechanical ventilation. Currently sedated with propofol, orally intubated on mechanical ventilation. Awaiting MRI brain and C-spine. EEG done yesterday did not show any seizure activity. 08/11: Sedated, orally intubated on mechanical ventilation. MRI brain unremarkable. MRI C-spine with hairline C6 fracture with no displacement. 08/12: Remains sedated, orally intubated on mechanical ventilation. Reintubated yesterday for significant hypoxia and respiratory distress with O2 sats dropping to the 70s despite nonrebreather facemask. CT pulmonary angiogram was negative for PE and showed bilateral infiltrates at the bases. 08/13: Remains sedated, orally intubated on mechanical ventilation. On propofol /fentanyl GTT. Starting tube feeds 08/14: T-max 99.4. Currently 98.3. Scheduled for IR for lumbar puncture today. Patient acute injury. Patient is on vancomycin, acyclovir and did receive IV contrast recently. Renal ultrasound ordered. Urine eosinophils, sodium and creatinine ordered. Arousable and does follow commands on the ventilator. Breakthrough agitation/involuntary systemic movements noted 08/15: Plan for lumbar puncture today. Will likely try sedation vacation overnight. See 4 mg of midazolam overnight due to agitation. Appears comfortable. Intermittently follows commands. 08/16: Lumbar puncture from yesterday accomplished. We will try sedation vacation again today and tried on dexmedetomidine drip. Rash is much improved. Discontinued lacosamide possible source of rash. Remains leukopenic and elevated eosinophils. SUBJECTIVE: 08/17: Low-grade fevers overnight. Blood cultures x2, sputum performed. Will start on piperacillin/tazobactam vancomycin. Extubated today. Tolerated about 2 hours but became hypoxic on 100% nonrebreather and tachypneic. Intubated with axial traction. Will need tracheostomy has failed extubation x2 Objective Vital Signs / I&O: Vital Signs 08/16/18 10:00 08/16/18 10:02 08/16/18 10:22 Temperature Pulse Rate 62 63 62 Respiratory Rate 16 16 16 Blood Pressure 116/58 L 117/58 L Pulse Oximetry 98 98 99 08/16/18 10:42 08/16/18 11:00 08/16/18 11:02 Temperature Pulse Rate 127 H 125 H 81 Respiratory Rate 23 21 14 Blood Pressure 119/75 137/61 Pulse Oximetry 99 100 99 08/16/18 11:22 08/16/18 11:42 08/16/18 12:00 Temperature Pulse Rate 79 105 H 70 Respiratory Rate 16 16 16 Blood Pressure 142/64 H 134/60 Pulse Oximetry 100 100 100 08/16/18 12:02 08/16/18 12:09 08/16/18 12:22 Temperature 98.6 F Pulse Rate 69 100 H 67 Respiratory Rate 16 19 16 Blood Pressure 140/63 136/61 Pulse Oximetry 99 99 97 08/16/18 12:42 08/16/18 13:00 08/16/18 13:02 Temperature Pulse Rate 66 130 H 122 H Respiratory Rate 20 22 19 Blood Pressure 149/77 H 167/89 H Pulse Oximetry 98 100 99 08/16/18 13:19 08/16/18 13:22 08/16/18 13:42 Temperature Pulse Rate 134 H 73 65 Respiratory Rate 24 16 16 Blood Pressure 175/75 H 171/64 H 138/68 Pulse Oximetry 95 95 96 08/16/18 14:00 08/16/18 14:02 08/16/18 14:22 Temperature Pulse Rate 106 H 105 H 67 Respiratory Rate 19 16 16 Blood Pressure 131/82 142/66 H Pulse Oximetry 94 L 94 L 96 08/16/18 14:42 08/16/18 15:00 08/16/18 15:02 Temperature Pulse Rate 67 67 67 Respiratory Rate 16 16 16 Blood Pressure 143/67 H 151/63 H Pulse Oximetry 97 97 96 08/16/18 15:18 08/16/18 15:22 08/16/18 15:42 Temperature Pulse Rate 106 H 68 Respiratory Rate 21 17 16 Blood Pressure 143/63 H 141/63 H Pulse Oximetry 96 96 08/16/18 15:57 08/16/18 16:00 08/16/18 16:02 Temperature Pulse Rate 68 68 68 Respiratory Rate 16 17 17 Blood Pressure 144/63 H Pulse Oximetry 94 L 98 99 08/16/18 16:22 08/16/18 16:42 08/16/18 17:00 Temperature Pulse Rate 69 69 69 Respiratory Rate 17 17 17 Blood Pressure 139/60 129/61 Pulse Oximetry 95 95 95 08/16/18 17:02 08/16/18 17:22 08/16/18 17:42 Temperature Pulse Rate 69 69 69 Respiratory Rate 17 17 17 Blood Pressure 134/63 133/61 135/60 Pulse Oximetry 95 95 95 08/16/18 18:00 08/16/18 18:02 08/16/18 18:22 Temperature Pulse Rate 69 69 69 Respiratory Rate 17 17 17 Blood Pressure 136/61 135/63 Pulse Oximetry 95 95 96 08/16/18 18:42 08/16/18 19:00 08/16/18 19:02 Temperature Pulse Rate 69 117 H 112 H Respiratory Rate 17 19 18 Blood Pressure 133/62 134/60 Pulse Oximetry 96 95 97 08/16/18 19:22 08/16/18 19:42 08/16/18 20:00 Temperature 100.4 F H Pulse Rate 70 72 70 Respiratory Rate 17 17 17 Blood Pressure 131/58 L 127/58 L Pulse Oximetry 97 95 95 08/16/18 20:02 08/16/18 20:18 08/16/18 20:22 Temperature Pulse Rate 70 103 H 105 H Respiratory Rate 17 17 18 Blood Pressure 115/56 L 155/68 H Pulse Oximetry 95 95 95 08/16/18 20:42 08/16/18 21:00 08/16/18 21:02 Temperature Pulse Rate 69 68 68 Respiratory Rate 17 17 17 Blood Pressure 112/54 L 113/57 L Pulse Oximetry 95 95 95 08/16/18 21:22 08/16/18 21:42 08/16/18 22:00 Temperature Pulse Rate 69 71 68 Respiratory Rate 17 18 17 Blood Pressure 131/58 L 135/60 Pulse Oximetry 96 96 96 08/16/18 22:02 08/16/18 22:22 08/16/18 22:42 Temperature Pulse Rate 68 68 67 Respiratory Rate 17 17 17 Blood Pressure 122/56 L 124/57 L 131/60 Pulse Oximetry 96 96 96 08/16/18 23:00 08/16/18 23:02 08/16/18 23:22 Temperature 101.4 F H Pulse Rate 79 71 67 Respiratory Rate 20 16 16 Blood Pressure 139/67 142/62 H Pulse Oximetry 95 98 96 08/16/18 23:27 08/16/18 23:28 08/16/18 23:42 Temperature Pulse Rate 67 70 Respiratory Rate 16 16 18 Blood Pressure 138/60 Pulse Oximetry 96 97 08/17/18 00:00 08/17/18 00:02 08/17/18 00:22 Temperature Pulse Rate 71 70 67 Respiratory Rate 18 18 17 Blood Pressure 133/60 128/58 L Pulse Oximetry 96 96 96 08/17/18 00:42 08/17/18 01:00 08/17/18 01:02 Temperature Pulse Rate 73 67 73 Respiratory Rate 20 16 23 Blood Pressure 130/70 196/77 H Pulse Oximetry 98 97 97 08/17/18 01:22 08/17/18 01:42 08/17/18 02:00 Temperature Pulse Rate 65 64 63 Respiratory Rate 16 16 16 Blood Pressure 142/61 H 136/63 Pulse Oximetry 97 97 97 08/17/18 02:02 08/17/18 02:31 08/17/18 03:00 Temperature Pulse Rate 63 63 63 Respiratory Rate 16 16 16 Blood Pressure 136/62 138/63 Pulse Oximetry 97 97 97 08/17/18 03:01 08/17/18 03:31 08/17/18 03:59 Temperature Pulse Rate 63 61 60 Respiratory Rate 16 16 16 Blood Pressure 142/63 H 149/67 H Pulse Oximetry 97 97 97 08/17/18 04:00 08/17/18 04:01 08/17/18 04:31 Temperature Pulse Rate 60 60 60 Respiratory Rate 17 16 17 Blood Pressure 154/69 H 152/70 H Pulse Oximetry 97 97 97 08/17/18 05:00 08/17/18 05:01 08/17/18 05:31 Temperature Pulse Rate 60 60 61 Respiratory Rate 17 17 17 Blood Pressure 169/74 H 161/70 H Pulse Oximetry 97 97 97 08/17/18 06:00 08/17/18 06:01 08/17/18 07:38 Temperature Pulse Rate 61 60 82 Respiratory Rate 17 17 30 H Blood Pressure 156/70 H Pulse Oximetry 98 98 08/17/18 08:20 Temperature Pulse Rate Respiratory Rate Blood Pressure Pulse Oximetry 94 L Intake & Output 08/16/18 08/17/18 08/17/18 18:59 06:59 18:59 Intake Total 2847.2 / 2847.2 1399 / 1399 Output Total 1350 / 1350 950 / 950 Balance 1497.2 / 1497.2 449 / 449 Weight 101.1 kg Intake: IV 1961.2 / 1961.2 650 / 650 Precedex Inj 200 MCG In NS Inj 100 / 100 48 ML @ 0.2 MCG/KG/HR 5.13 mls/ hr IV.CONT TITRATE PRN Rx#: [id number] Diprivan 1000 mg/100 ml Inj 1, 100 / 100 400 / 400 000 mg In 100 ml @ 5 MCG/KG/MIN 2.634 mls/hr IV.CONT TITRATE PRN Rx#:[id number] NS Inj 1,000 ML @ 100 mls/hr IV 1000 / 1000 .CONT .Q10H SATYA Rx#:[id number] MVI-12 Inj 10 ML Thiamine Inj 511.2 / 511.2 100 MG Folvite Inj 1 MG In D5W- 1/2 NS Inj 500 ML @ 127.8 mls/ hr IV.SIG DAILY SATYA Rx#: [id number] fentaNYL 10 mcg/mL Premix Drip 250 / 250 250 / 250 2,500 mcg In 250 ml @ 50 MCG/HR 5 mls/hr IV.SIG TITRATE PRN Rx #:[id number] Tube Feeding 486 / 486 299 / 299 Water Bolus Amount 400 / 400 450 / 450 Output: Urine Amount (Catheter) 1350 / 1350 950 / 950 Straight 1350 / 1350 950 / 950 Other: Date of Last Bowel Movement 08/15/18 08/15/18 Result Diagrams: 08/16/18 06:10 08/16/18 06:10 Other Results: Microbiology 08/11/18 14:29 Blood - Peripheral Aerobic Blood Culture - Final No growth in 5 days 08/11/18 14:29 Blood - Peripheral Anaerobic Blood Culture - Final No growth in 5 days 08/11/18 14:24 Blood - Peripheral Aerobic Blood Culture - Final No growth in 5 days 08/11/18 14:24 Blood - Peripheral Anaerobic Blood Culture - Final No growth in 5 days 08/11/18 15:00 Sputum - Endotracheal Gram Stain - Final 08/11/18 15:00 Sputum - Endotracheal Sputum Culture - Final Heavy growth normal respiratory sherman 08/09/18 11:00 Catheterized Urine Urine Culture - Final No growth in 48 hours Imaging: Head CT 08/09/18 09:20 CONCLUSION: 1. No acute intracranial abnormality is seen. 2. Mild widening of the cortical sulci which could suggest some atrophy. Report was called by [Dr. Dutton to at 9:49 AM. ] Chest X-Ray 08/09/18 09:21 CONCLUSION: No acute cardiopulmonary process. Cervical Spine CT 08/09/18 09:23 CONCLUSION: 1. Fracturing through anterior flowing spurs at the anterior C6 level with the fracture extending into the anterior inferior left lateral aspect of the C6 vertebral body. Empty displacement is not seen. No other possible fractures are seen. 2. 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 3. Degenerative change. Head CTA 08/09/18 09:28 CONCLUSION: Negative CTA. Report was called by [Dr. Dutton to Dr. Faustin. A message was left on the voicemail. ] Neck CTA 08/09/18 09:28 CONCLUSION: Negative CTA of the neck. Cervical Spine MRI 08/10/18 00:00 CONCLUSION: 1. Fracturing through the prominent flowing spurs at the C6 level and extending into the anterior inferior aspect of C6 vertebral body without displacement. Minimal edema seen around the fracture site. 2. Prominent spurring extending from C4 to into the thoracic spine consistent with DISH. 3. Mild central disc protrusion at the C3-C4 level. 4. Mild disc protrusion with the apex at the left lateral recess region at the C5-C6 level. 5. Neural foraminal narrowing at the C3-C4 and C5-C6 levels. Chest X-Ray 08/10/18 00:00 CONCLUSION: ET tube in good position. Lungs are grossly clear. Head MRI 08/10/18 00:00 CONCLUSION: 1. No acute intracranial abnormality. 2. Mild atrophy. Lumbar Spine CT 08/10/18 00:00 CONCLUSION: 1. No acute abnormality seen. 2. Prominent spur seen throughout the thoracic and lumbar spine likely from DISH. 3. Mild disc bulges at the L3-L4 and L4-L5 levels. 4. Lower lumbar facet hypertrophy. Thoracic Spine CT 08/10/18 00:00 CONCLUSION: 1. No fracture is seen. 2. Prominent spurring seen throughout the thoracic spine but be secondary to DISH. 3. Subpleural areas of consolidation or atelectasis at the posterior lower lungs. Chest CTA 08/11/18 00:00 CONCLUSION: 1. No evidence of any pulmonary embolism. 2. There are bilateral infiltrates predominantly in the posterior mid to lower lung villarreal. 3. 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 Chest X-Ray 08/11/18 13:29 CONCLUSION: Increasing bibasal infiltrates. Venous Doppler Study 08/12/18 00:00 CONCLUSION: 1. The study is negative for bilateral lower extremity deep venous thrombosis. Chest X-Ray 08/13/18 10:17 CONCLUSION: Mild improvement in the bibasilar pulmonary infiltrates compared to the prior exam. Venous Doppler Study 08/14/18 00:00 CONCLUSION: 1. Occlusive and nonocclusive thrombus within the bilateral cephalic veins. Abdomen/Bladder Ultrasound 08/14/18 07:24 CONCLUSION: 1. Mild prominence of the right collecting system suggestive of some mild hydronephrosis. 2. The left kidney is unremarkable. 3. The urinary bladder appears to be distended with a volume of 1554 mL. Lumbar Puncture Fluoroscopy 08/15/18 12:27 CONCLUSION: 1. Uncomplicated fluoroscopically guided lumbar puncture. Chest X-Ray 08/16/18 06:00 CONCLUSION: Modest worsening parenchymal consolidation and small effusions at each base. Objective Remarks: GENERAL: 58-year-old male currently orotracheally intubated no acute distress SKIN: Warm and dry. Positive diffuse maculopapular rash blanchable. Involving face, thorax and lower extremities improved. No signs of blisters HEAD: Atraumatic. Normocephalic. EYES: Pupils equal and round. No scleral icterus. No injection or drainage. ENT: No nasal bleeding or discharge. Mucous membranes pink and moist. NECK: Trachea midline. No JVD. CARDIOVASCULAR: Regular rate and rhythm. S1, S2. No S4. No murmur RESPIRATORY: No accessory muscle use. Clear to auscultation. Breath sounds equal bilaterally. GASTROINTESTINAL: Abdomen soft, non-tender, nondistended. Hypoactive bowel sounds are appreciated MUSCULOSKELETAL: Extremities without significant peripheral edema. No obvious deformities. NEUROLOGICAL: Awake and alert.. Follows commands off sedation. Agitated post intubation. Remains confused.. Moves all 4 extremities spontaneously and to command. Positive cough and gag Assessment and Plan - Assessment and Plan Plan: Neuro/Psych: Acute toxic metabolic encephalopathy Involuntary movements -EEG 08/09- for epileptiform activity Anterior C6 fracture -[place] J collar times 6 weeks EtOH abuse/withdrawal. Level 114 admission Currently on propofol at 50 william grams per kilogram per minute/fentanyl drip at 250 william grams an hour for sedation/analgesia while intubated Dexmedetomidine drip added 08/14 for weaning Follow neuro checks. Neurology neurosurgery consulted. EEG done in ER did not reveal any seizure activity with ongoing involuntary movements. MRI brain unremarkable, MRI C-spine nondisplaced C6 fracture, continue [place] J collar for 6 weeks per neurosurgery. Aspirin placed on hold for lumbar puncture. Okay to resume dIscontinued lacosamide 100 mg IV twice daily secondary to rash Started thiamine/MVI/folic acid daily and history of EtOH abuse Currently on chlordiazepoxide 50 mg mg twice daily. 08/15 discontinued quetiapine 50 mg twice daily due to rash Started Latuda 40 mg daily and Depakene 250 mg twice daily 08/17 for mood stabilization Neurology started acyclovir IV while awaiting lumbar puncture. This discontinued 08/15 with negative HSV Cardiovascular: Hypertensive emergency Elevated cholesterol/total Elevated HDL Rhabdomyolysis downtrending CPK to 1000 Initially was hypertensive on arrival. Hydralazine and labetalol as needed. Continue carvedilol 6.25 mg p.o. twice daily Troponin 0.04 Pulmonary: Acute hypoxic hypercapnic respiratory failure Intubated for airway protection and placed on mechanical ventilation following episode of emesis with question of aspiration on 08/10 AM. Extubated 08/17 but reintubated same day PRVC ventilation /08/23/29 vent bundle, Albuterol/ipratropium aerosols every 4 hours with albuterol aerosols every 2 hours as needed dyspnea tolerated CPAP trial and extubated on 08/11 however about 5 hours following extubation and required reintubation for hypoxic respiratory failure of unclear etiology. CT pulmonary angiogram negative for PE but possible right subclavian thrombus. Check upper extremity Dopplers today.. Consulted pulmonary for further evaluation of hypoxic respiratory failure Chest x-ray in a.m. 08/18 GI/liver: Elevated transaminases downward trending Hypoalbuminemia with moderate protein calorie malnutrition Continue tube feeds with Nepro goal 50 cc an hour and advance to goal as tolerated. Famotidine 20 mg daily for GI prophylaxis Docusate sodium/senna 1 tablet twice daily for bowel regimen. Added polyethylene glycol 17 g twice daily and lactulose 30 cc twice daily Negative hepatitis panel FEN/renal/: Acute kidney injury resolving Acute hypernatremia Hypomagnesia Urinary retention with mild bilateral hydronephrosis IV hydration, strict intake output, monitor and replete electrolytes, follow BUN /creatinine. Bicarbonate drip discontinued 08/13. Free water 200 cc every 8 hours Potassium chloride 25 mEq by tube x1 now. Recheck in a.m. Avoid nephrotoxic medications. Will Place Goff if needed for urinary retention. ID: 08/15 discontinued vancomycin, piperacillin/tazobactam and acyclovir. Watch for fever/leukocytosis Blood cultures x21 10/10 no growth to date repeat blood cultures 08/17 and sputum pending Sputum 08/11 no growth to date Number puncture with IR today 08/15-negative HSV. Started vancomycin, piperacillin/tazobactam 08/17 Endocrine: Watch for hyperglycemia, SSI for glycemic control with aspart insulin/low regimen every 6 hours Normal TSH Heme: Macrocytic anemia Leukopenia Documentation of prior possible right subclavian occlusion -negative Doppler Bilateral cephalic occlusive and nonocclusive superficial venous thrombosis Follow CBC. No indication for transfusion of blood products at this time We will start subcu heparin 24 hours post lumbar puncture MSK: Elevated BMI Diffuse idiopathic skeletal hyperostosis Possible drug rash Weight loss encouraged PT evaluate and treat On IV famotidine, diphenhydramine. Received 1 dose of dexamethasone yesterday. Follow Prophylaxis: SCDs. heparin 5000 units subcutaneously every 8 hourly 24 hours post lumbar puncture, famotidine for GI prophylaxis Condition critical Time spent on critical care excluding procedures 30 minutes
[2018-08-17] MEDS: Famotidine PF Inj 20 MG/2 ML Vial IV.PUSH SCH ×2 (10:44→21:20)
[2018-08-17] MEDS: Multivitamin Inj 10 ML, Thiamine Inj 100 MG, Folic Acid Inj 1 MG in Dextrose 5%/NaCl 0.... IV.SIG SCH (10:44)
[2018-08-17] MEDS: Chlorhexidine 0.12% Oral Kit 15 ML UDC OROPHARYNG SCH ×2 (10:44→21:22)
[2018-08-17] MEDS: chlordiazePOXIDE 25 MG Capsule PO SCH ×2 (10:45→21:22)
[2018-08-17] MEDS: Carvedilol 6.25 MG Tablet PO SCH ×2 (10:45→21:21)
[2018-08-17] MEDS: Folic Acid 1 MG Tablet PO SCH (10:46)
[2018-08-17] MEDS: Piperacil/Tazo 4.5 GM Premix 4.5 GM/100 ML BAG IV.SIG SCH ×4 (10:46→22:11)
[2018-08-17] MEDS: hydrALAZINE 25 MG Tablet PO SCH ×3 (10:46→17:50)
--- NOTE | 2018-08-17 10:51 | XR ---
EXAM DATE: 08/17/2018 10:44 AM EST AGE/SEX: 58 years / Male INDICATIONS: Intubation. CLINICAL DATA: This is the patient's subsequent encounter. Patient reports that signs and symptoms h ave been present for 1 day and indicates a pain score of Nonresponsive. MEDICAL/SURGICAL HISTORY: . Hypertension. ETOH abuse None. COMPARISON: [facility] [place], CHEST 1V SINGLE AP, 08/16/2018. . FINDINGS: Endotracheal and nasogastric tubes are noted in position. Persistent bibasilar lung opacity characteristic of airspace disease and underlying pleural effusions is again noted and unchanged. There is no evidence of pneumothorax. Osseous structures are stable. CONCLUSION: Satisfactory position of endotracheal and nasogastric tubes Persistent significant mid lung and basilar opacity without significant improvement Electronically signed by: Sea Jama MD Board Certified Radiologist 08/17/2018 10:49 AM EST
[2018-08-17 10:53] LABS: ABG Base Excess -0.2 mmol/L (-2-2); ABG PCO2 45 mmHg (38-42); ABG PO2 124 mmHg (61-120)
[2018-08-17 11:01] LABS: Baso % (Auto) 0.4 % (0.0-2.0); Eos # (Auto) 0.1 th/mm3 (0.0-0.4); Hematocrit 31.7 % (39.0-51.0); Lymph # (Auto) 0.6 th/mm3 (1.0-4.8); Lymph % (Auto) 10.5 % (9.0-44.0); Mean Corpuscular HGB Conc 34.8 % (32.0-36.0); Mean Corpuscular Hemoglobin 32.5 pg (27.0-34.0); Mean Corpuscular Volume 93.3 fL (80.0-100.0); Mean Platelet Volume 7.6 fL (7.0-11.0); Mono # (Auto) 0.4 th/mm3 (0.0-0.9); Mono % (Auto) 7.2 % (0.0-8.0); Neut # (Auto) 4.4 th/mm3 (1.8-7.7); Neut % (Auto) 79.9 % (16.0-70.0); Platelet Count 299 th/mm3 (150-450); Red Blood Count 3.39 mil/mm3 (4.50-5.90); Red Cell Distribution Width 14.1 % (11.6-17.2); White Blood Count 5.5 th/mm3 (4.0-11.0)
[2018-08-17] MEDS: Midazolam 100 MG/100 ML Inj 100 MG/100 ML BAG IV.CONT PRN ×2 (11:13→18:29)
[2018-08-17 11:16] LABS: Calcium 8.3 mg/dL (8.5-10.1); Carbon Dioxide 25.9 meq/L (21.0-32.0); Potassium 3.2 meq/L (3.5-5.1)
[2018-08-17] MEDS: Aspirin 300 MG Supp RECTAL SCH (12:02)
[2018-08-17] MEDS: Heparin - SQ 10,000 UNITS/ML Vial SQ SCH ×2 (12:03→21:19)
[2018-08-17] MEDS: fentaNYL 10 mcg/mL Premix Drip 2,500 MCG/250 ML BAG IV.SIG PRN ×2 (12:06→21:49)
[2018-08-17] MEDS: Senna/Docusate Sodium 8.6/50 MG Tablet PO SCH (12:07)
[2018-08-17] MEDS: Polyethylene Glycol 3350 17 GM Packet PO SCH (12:07)
[2018-08-17] MEDS ORDERED: Vancomycin Inj 1,500 MG in Sodium Chlor 0.9% Inj 500 ML IV.SIG ONE (14:00)
--- NOTE | 2018-08-17 19:22 | P.PN ---
Subjective Interval history: was extubated and reintubated for resp failure . Now on versed for sedation. has edema of all limbs. output was Low. Physical Exam Vital signs: Vital Signs 08/16/18 19:22 08/16/18 19:42 08/16/18 20:00 Temperature 100.4 F H Pulse Rate 70 72 70 Respiratory Rate 17 17 17 Blood Pressure 131/58 L 127/58 L Pulse Oximetry 97 95 95 08/16/18 20:02 08/16/18 20:18 08/16/18 20:22 Temperature Pulse Rate 70 103 H 105 H Respiratory Rate 17 17 18 Blood Pressure 115/56 L 155/68 H Pulse Oximetry 95 95 95 08/16/18 20:42 08/16/18 21:00 08/16/18 21:02 Temperature Pulse Rate 69 68 68 Respiratory Rate 17 17 17 Blood Pressure 112/54 L 113/57 L Pulse Oximetry 95 95 95 08/16/18 21:22 08/16/18 21:42 08/16/18 22:00 Temperature Pulse Rate 69 71 68 Respiratory Rate 17 18 17 Blood Pressure 131/58 L 135/60 Pulse Oximetry 96 96 96 08/16/18 22:02 08/16/18 22:22 08/16/18 22:42 Temperature Pulse Rate 68 68 67 Respiratory Rate 17 17 17 Blood Pressure 122/56 L 124/57 L 131/60 Pulse Oximetry 96 96 96 08/16/18 23:00 08/16/18 23:02 08/16/18 23:22 Temperature 101.4 F H Pulse Rate 79 71 67 Respiratory Rate 20 16 16 Blood Pressure 139/67 142/62 H Pulse Oximetry 95 98 96 08/16/18 23:27 08/16/18 23:28 08/16/18 23:42 Temperature Pulse Rate 67 70 Respiratory Rate 16 16 18 Blood Pressure 138/60 Pulse Oximetry 96 97 08/17/18 00:00 08/17/18 00:02 08/17/18 00:22 Temperature Pulse Rate 71 70 67 Respiratory Rate 18 18 17 Blood Pressure 133/60 128/58 L Pulse Oximetry 96 96 96 08/17/18 00:42 08/17/18 01:00 08/17/18 01:02 Temperature Pulse Rate 73 67 73 Respiratory Rate 20 16 23 Blood Pressure 130/70 196/77 H Pulse Oximetry 98 97 97 08/17/18 01:22 12/30/18 01:42 08/17/18 02:00 Temperature Pulse Rate 65 64 63 Respiratory Rate 16 16 16 Blood Pressure 142/61 H 136/63 Pulse Oximetry 97 97 97 08/17/18 02:02 08/17/18 02:31 08/17/18 03:00 Temperature Pulse Rate 63 63 63 Respiratory Rate 16 16 16 Blood Pressure 136/62 138/63 Pulse Oximetry 97 97 97 08/17/18 03:01 08/17/18 03:31 08/17/18 03:59 Temperature Pulse Rate 63 61 60 Respiratory Rate 16 16 16 Blood Pressure 142/63 H 149/67 H Pulse Oximetry 97 97 97 08/17/18 04:00 08/17/18 04:01 08/17/18 04:31 Temperature Pulse Rate 60 60 60 Respiratory Rate 17 16 17 Blood Pressure 154/69 H 152/70 H Pulse Oximetry 97 97 97 08/17/18 05:00 08/17/18 05:01 08/17/18 05:31 Temperature Pulse Rate 60 60 61 Respiratory Rate 17 17 17 Blood Pressure 169/74 H 161/70 H Pulse Oximetry 97 97 97 08/17/18 06:00 08/17/18 06:01 08/17/18 07:38 Temperature Pulse Rate 61 60 82 Respiratory Rate 17 17 30 H Blood Pressure 156/70 H Pulse Oximetry 98 98 08/17/18 08:00 08/17/18 08:08 08/17/18 08:12 Temperature 98.3 F Pulse Rate 86 77 78 Respiratory Rate 25 H 26 H Blood Pressure 239/105 H 229/100 H Pulse Oximetry 94 L 97 95 08/17/18 08:20 08/17/18 08:21 08/17/18 08:28 Temperature Pulse Rate 81 86 Respiratory Rate 24 39 H Blood Pressure 236/104 H 166/76 H Pulse Oximetry 94 L 93 L 95 08/17/18 08:31 08/17/18 09:00 08/17/18 09:01 Temperature Pulse Rate 87 93 H 95 H Respiratory Rate 32 H 40 H 29 H Blood Pressure 169/77 H 161/85 H Pulse Oximetry 95 92 L 93 L 08/17/18 09:31 08/17/18 09:41 08/17/18 09:43 Temperature Pulse Rate 101 H 101 H 100 H Respiratory Rate 41 H 38 H 35 H Blood Pressure 200/94 H 204/97 H 202/96 H Pulse Oximetry 91 L 93 L 93 L 08/17/18 09:46 08/17/18 09:48 08/17/18 09:51 Temperature Pulse Rate 99 H 96 H 88 Respiratory Rate 32 H 17 18 Blood Pressure 226/119 H 188/86 H 189/84 H Pulse Oximetry 93 L 95 92 L 08/17/18 09:53 08/17/18 09:56 08/17/18 09:58 Temperature Pulse Rate 87 84 84 Respiratory Rate 20 19 19 Blood Pressure 168/73 H 164/71 H 176/76 H Pulse Oximetry 91 L 95 95 08/17/18 10:00 08/17/18 10:01 08/17/18 10:03 Temperature Pulse Rate 84 84 90 Respiratory Rate 19 19 19 Blood Pressure 174/79 H 226/105 H Pulse Oximetry 96 95 96 08/17/18 10:06 08/17/18 10:08 08/17/18 10:11 Temperature Pulse Rate 92 H 91 H 97 H Respiratory Rate 20 19 18 Blood Pressure 221/104 H 216/99 H 221/102 H Pulse Oximetry 96 96 96 08/17/18 10:30 08/17/18 11:00 08/17/18 11:03 Temperature Pulse Rate 90 85 85 Respiratory Rate 19 21 26 H Blood Pressure 188/81 H 172/136 H 169/72 H Pulse Oximetry 96 95 94 L 08/17/18 11:30 08/17/18 11:33 08/17/18 12:00 Temperature 98.6 F Pulse Rate 80 80 78 Respiratory Rate 18 18 18 Blood Pressure 163/72 H 162/70 H Pulse Oximetry 98 98 97 08/17/18 12:30 08/17/18 13:00 08/17/18 13:30 Temperature Pulse Rate 74 69 68 Respiratory Rate 19 17 19 Blood Pressure 166/71 H 171/76 H 177/80 H Pulse Oximetry 99 100 100 08/17/18 14:00 08/17/18 14:30 08/17/18 15:00 Temperature Pulse Rate 68 84 89 Respiratory Rate 20 18 22 Blood Pressure 190/88 H 180/81 H 193/86 H Pulse Oximetry 100 98 94 L 08/17/18 15:30 08/17/18 15:35 08/17/18 16:00 Temperature Pulse Rate 75 84 79 Respiratory Rate 19 24 22 Blood Pressure 133/60 167/76 H Pulse Oximetry 98 99 97 08/17/18 16:30 08/17/18 17:00 08/17/18 17:29 Temperature Pulse Rate 74 70 85 Respiratory Rate 19 18 30 H Blood Pressure 190/77 H 208/84 H 217/91 H Pulse Oximetry 98 99 96 08/17/18 17:30 08/17/18 18:00 Temperature Pulse Rate 83 88 Respiratory Rate 17 17 Blood Pressure 207/86 H Pulse Oximetry 95 93 L Intake & Output 08/17/18 08/17/18 08/18/18 06:59 18:59 06:59 Intake Total 1399 / 1399 2046.2 / 2046.2 Output Total 950 / 950 20 / 20 Balance 449 / 449 2026.2 / 2026.2 Weight 101.1 kg Intake: IV 650 / 650 1556.2 / 1556.2 Precedex Inj 200 MCG In NS Inj 50 / 50 48 ML @ 0.2 MCG/KG/HR 5.13 mls/ hr IV.CONT TITRATE PRN Rx#: [id number] Versed Inj 100 mg In 100 ml @ 2 100 / 100 MG/HR 2 mls/hr IV.CONT TITRATE PRN Rx#:[id number] Diprivan 1000 mg/100 ml Inj 1, 400 / 400 30 / 30 000 mg In 100 ml @ 5 MCG/KG/MIN 2.634 mls/hr IV.CONT TITRATE PRN Rx#:[id number] MVI-12 Inj 10 ML Thiamine Inj 511.2 / 511.2 100 MG Folvite Inj 1 MG In D5W- 1/2 NS Inj 500 ML @ 127.8 mls/ hr IV.SIG DAILY SATYA Rx#: [id number] Zosyn 4.5 GM Premix 4.5 gm In 100 / 100 100 ml @ 200 mls/hr IV.SIG Q6H SATYA Rx#:[id number] Vancomycin Inj 1,500 MG In NS 515 / 515 Inj 500 ML @ 257.5 mls/hr IV. SIG ONCE ONE Rx#:[id number] fentaNYL 10 mcg/mL Premix Drip 250 / 250 250 / 250 2,500 mcg In 250 ml @ 50 MCG/HR 5 mls/hr IV.SIG TITRATE PRN Rx #:[id number] Tube Feeding 299 / 299 290 / 290 Tube Irrigant 200 / 200 Water Bolus Amount 450 / 450 Output: Stool 20 / 20 Urine Amount (Catheter) 950 / 950 Straight 950 / 950 Other: Date of Last Bowel Movement 08/15/18 08/15/18 Narrative: GENERAL: Mid aged W/M intubated and sedated. SKIN: Warm and dry. HEAD: Atraumatic. Normocephalic. Face flushed EYES: Pupils equal and round. No scleral icterus. Mild injection no drainage. ENT: No nasal bleeding or discharge. Mucous membranes pink and moist. NECK: Trachea midline. No JVD. CARDIOVASCULAR: Regular rate and rhythm. RESPIRATORY: No accessory muscle use. Few basal crackles and wheeze. Breath sounds equal bilaterally. GASTROINTESTINAL: Abdomen soft, non-tender, nondistended. Hepatic and splenic margins not palpable. MUSCULOSKELETAL: Extremities without clubbing, cyanosis, or edema. No obvious deformities. NEUROLOGICAL:sedated. - Urinary Catheter Management Indwelling Urethral Catheter Cath placed during this visit: yes, but has since been removed by the nurse Reason for continuing: Hourly intake/output Insertion date: 08/09/18 Insertion time: 18:30 Removal date: 08/11/18 Removal time: 09:50 Condom Cath placed during this visit: no Reason for continuing: Not indwelling catheter Straight Cath placed during this visit: yes Reason for continuing: Acute urinary retention Insertion date: 08/17/18 Insertion time: 10:30 Results - Labs CBC & Chem 7: 08/17/18 10:22 08/17/18 10:22 Laboratory Results - last 24 hr 08/15/18 08/15/18 08/15/18 11:39 11:39 11:39 WBC RBC Hgb Hct MCV MCH MCHC RDW Plt Count MPV Neut % (Auto) Lymph % (Auto) Heard % (Auto) Eos % (Auto) Baso % (Auto) Neut # (Auto) Lymph # (Auto) Heard # (Auto) Eos # (Auto) Baso # (Auto) WBC Differential Differential Comment Puncture Site Patient Temperature O2 Saturation ABG pH ABG pCO2 ABG pO2 ABG HCO3 ABG O2 Content ABG Base Excess ABG Methemoglobin [place] Test Hemoglobin Carboxyhemoglobin O2 Delivery Device Vent Setting Inspired O2 Critical Value Sodium Potassium Chloride Carbon Dioxide Anion Gap BUN Creatinine Estimated GFR Random Glucose Calcium Urine Color Urine Clarity Urine pH Ur Specific [place] Urine Protein Urine Glucose (UA) Urine Ketones Urine Occult Blood Urine Nitrate Urine Bilirubin Urine Urobilinogen Ur Leukocyte Esterase Urine RBC Urine WBC Ur Squamous Epith Cells Urine Mucus Micro UA Comment Ur Microscopic Review Urine Culture Comments CSF VDRL Non-reactive CSF Cryptococcus Ag Not detected Stl C.difficile DNA Amp St C. diff Tox Epid 027 Random Vancomycin Enterovirus Source Csf Enterovirus RNA (PCR) Negative 08/17/18 08/17/18 08/17/18 00:30 10:22 10:22 WBC 5.5 RBC 3.39 L Hgb 11.0 L Hct 31.7 L MCV 93.3 MCH 32.5 MCHC 34.8 RDW 14.1 Plt Count 299 D MPV 7.6 Neut % (Auto) 79.9 H Lymph % (Auto) 10.5 Heard % (Auto) 7.2 Eos % (Auto) 2.0 Baso % (Auto) 0.4 Neut # (Auto) 4.4 Lymph # (Auto) 0.6 L Heard # (Auto) 0.4 Eos # (Auto) 0.1 Baso # (Auto) 0.0 WBC Differential . Differential Comment Auto diff final Puncture Site Patient Temperature O2 Saturation ABG pH ABG pCO2 ABG pO2 ABG HCO3 ABG O2 Content ABG Base Excess ABG Methemoglobin [place] Test Hemoglobin Carboxyhemoglobin O2 Delivery Device Vent Setting Inspired O2 Critical Value Sodium 146 H Potassium 3.2 L Chloride 112 H Carbon Dioxide 25.9 Anion Gap 8 BUN 15 Creatinine 1.06 Estimated GFR 72 L Random Glucose 103 Calcium 8.3 L Urine Color Yellow Urine Clarity Clear Urine pH 5.0 Ur Specific [place] 1.020 Urine Protein 30 H Urine Glucose (UA) Negative Urine Ketones Trace H Urine Occult Blood Negative Urine Nitrate Negative Urine Bilirubin Negative Urine Urobilinogen Less than 2 Ur Leukocyte Esterase Negative Urine RBC 17 H Urine WBC 3 Ur Squamous Epith Cells <1 Urine Mucus Few H Micro UA Comment Cath-culture not ind Ur Microscopic Review Not Reportable Urine Culture Comments Cath-cult not ind CSF VDRL CSF Cryptococcus Ag Stl C.difficile DNA Amp St C. diff Tox Epid 027 Random Vancomycin Enterovirus Source Enterovirus RNA (PCR) 08/17/18 08/17/18 08/17/18 10:22 10:42 11:20 WBC RBC Hgb Hct MCV MCH MCHC RDW Plt Count MPV Neut % (Auto) Lymph % (Auto) Heard % (Auto) Eos % (Auto) Baso % (Auto) Neut # (Auto) Lymph # (Auto) Heard # (Auto) Eos # (Auto) Baso # (Auto) WBC Differential Differential Comment Puncture Site Right radial Patient Temperature 98.6 O2 Saturation 96 ABG pH 7.36 L ABG pCO2 45 H ABG pO2 124 H ABG HCO3 25 ABG O2 Content 14.7 ABG Base Excess -0.2 ABG Methemoglobin 1.3 [place] Test Present Hemoglobin 10.7 L Carboxyhemoglobin 0.7 O2 Delivery Device Ventilator Vent Setting Prvc/ac Inspired O2 60 Critical Value No Sodium Potassium Chloride Carbon Dioxide Anion Gap BUN Creatinine Estimated GFR Random Glucose Calcium Urine Color Urine Clarity Urine pH Ur Specific [place] Urine Protein Urine Glucose (UA) Urine Ketones Urine Occult Blood Urine Nitrate Urine Bilirubin Urine Urobilinogen Ur Leukocyte Esterase Urine RBC Urine WBC Ur Squamous Epith Cells Urine Mucus Micro UA Comment Ur Microscopic Review Urine Culture Comments CSF VDRL CSF Cryptococcus Ag Stl C.difficile DNA Amp Negative St C. diff Tox Epid 027 Negative Random Vancomycin 4.5 Enterovirus Source Enterovirus RNA (PCR) Microbiology 08/17/18 00:30 Sputum - Endotracheal Gram Stain - Final - Imaging Impressions Chest X-Ray 08/17/18 09:51 CONCLUSION: Satisfactory position of endotracheal and nasogastric tubes Persistent significant mid lung and basilar opacity without significant improvement Assessment and Plan - Assessment (1) Respiratory failure requiring intubation Code(s): J96.90 - Respiratory failure, unspecified, unspecified whether with hypoxia or hypercapnia Status: Acute (2) Pneumonia Code(s): J18.9 - Pneumonia, unspecified organism Status: Acute (3) Seizure Code(s): R56.9 - Unspecified convulsions Status: Acute (4) Hypertensive urgency Code(s): I16.0 - Hypertensive urgency Status: Acute (5) Alcohol intoxication Code(s): F10.929 - Alcohol use, unspecified with intoxication, unspecified Status: Acute (6) Altered mental status Code(s): R41.82 - Altered mental status, unspecified Status: Acute (7) Delirium due to general medical condition Code(s): F05 - Delirium due to known physiological condition Status: Acute - Plan 1. Cont vent A/C 16 and PEEP +8, FIO2 50 % and check ABG 2. Reduce sedation. 3. Trach tomorrow. 4. Continue Duoneb nebs Q6H 5. CBC,CXR ,BMP in am 6. Tube feeds at 50 CC 7. Seizure precautions. 8. Antibiotics as ordered.
--- NOTE | 2018-08-17 20:52 | US ---
EXAM DATE: 08/17/2018 6:56 PM EST AGE/SEX: 58 years / Male INDICATIONS: Bilateral arm swelling. CLINICAL DATA: This is the patient's subsequent encounter. Patient reports that signs and symptoms h ave been present for 3 days and indicates a pain score of Nonresponsive. MEDICAL/SURGICAL HISTORY: Hypertension. ETOH abuse. None. COMPARISON: [facility] – [place], [place] VENOUS DOPPLER ARM BI, 08/14/2018. . FINDINGS: The cephalic veins are occluded bilaterally from proximal to distal. The other upper extremity veins are patent. Left internal jugular vein cannot be assessed due to neck brace. CONCLUSION: 1. Occlusive thrombus of the cephalic veins bilaterally. No other venous thrombosis. Electronically signed by: Nestor Tello MD Board Certified Radiologist 08/17/2018 8:51 PM EST
[2018-08-17] MEDS: Labetalol HCl Inj 100 MG/20 ML Vial IV.PUSH PRN (23:32)
[2018-08-18] MEDS: hydrALAZINE HCl Inj 20 MG/ML Vial IV.PUSH PRN ×2 (00:53→15:07)
[2018-08-18] MEDS: Oral Hygiene Kit OROPHARYNG SCH ×4 (00:54→15:08)
[2018-08-18] MEDS: Artificial Tears Opth Drops 15 ML Bottle EACH EYE SCH ×3 (00:54→16:15)
[2018-08-18] MEDS: Labetalol HCl Inj 100 MG/20 ML Vial IV.PUSH PRN (01:36)
[2018-08-18] MEDS: niCARdipine Inj 25 MG in Sodium Chlor 0.9% Inj 240 ML IV.CONT PRN ×7 (03:08→20:35)
[2018-08-18] MEDS: Heparin - SQ 10,000 UNITS/ML Vial SQ SCH ×4 (03:13→20:22)
[2018-08-18] MEDS: Midazolam 100 MG/100 ML Inj 100 MG/100 ML BAG IV.CONT PRN ×3 (03:33→22:12)
[2018-08-18 04:35] LABS: Baso # (Auto) 0.1 th/mm3 (0.0-0.2); Baso % (Auto) 0.8 % (0.0-2.0); Eos # (Auto) 0.2 th/mm3 (0.0-0.4); Hematocrit 29.6 % (39.0-51.0); Hemoglobin 9.6 gm/dL (13.0-17.0); Lymph # (Auto) 1.5 th/mm3 (1.0-4.8); Lymph % (Auto) 16.6 % (9.0-44.0); Mean Corpuscular HGB Conc 32.2 % (32.0-36.0); Mean Corpuscular Hemoglobin 30.7 pg (27.0-34.0); Mean Corpuscular Volume 95.1 fL (80.0-100.0); Mean Platelet Volume 8.6 fL (7.0-11.0); Mono # (Auto) 0.7 th/mm3 (0.0-0.9); Mono % (Auto) 8.3 % (0.0-8.0); Neut # (Auto) 6.4 th/mm3 (1.8-7.7); Neut % (Auto) 72.3 % (16.0-70.0); Platelet Count 332 th/mm3 (150-450); Red Blood Count 3.11 mil/mm3 (4.50-5.90); Red Cell Distribution Width 14.1 % (11.6-17.2); White Blood Count 8.8 th/mm3 (4.0-11.0)
[2018-08-18 04:43] LABS: Albumin 2.1 g/dL (3.4-5.0); Anion Gap 8 meq/L (5-15); Aspartate Aminotransferase 32 U/L (15-37); Blood Urea Nitrogen 14 mg/dL (7-18); Calcium 8.4 mg/dL (8.5-10.1); Carbon Dioxide 26.5 meq/L (21.0-32.0); Chloride 113 meq/L (98-107); Glomerular Filtration Rate 73 mL/min (>89); Glucose,Random 89 mg/dL (74-106); Magnesium 2.3 mg/dL (1.5-2.5); Potassium 3.7 meq/L (3.5-5.1); Sodium 147 meq/L (136-145)
[2018-08-18 04:49] LABS: Alanine Aminotransferase 41 U/L (12-78); Alkaline Phosphatase 128 U/L (45-117); Phosphorus 3.9 mg/dL (2.5-4.9); Total Protein 5.7 g/dL (6.4-8.2); Vancomycin,Random 10.2 Comment
[2018-08-18] MEDS: Piperacil/Tazo 4.5 GM Premix 4.5 GM/100 ML BAG IV.SIG SCH (05:07)
[2018-08-18 06:24] LABS: Activated Partial Thrombo Time 21.1 sec (23.4-31.7); INR 0.9 Ratio; Prothrombin Time 9.6 sec (9.8-11.6)
[2018-08-18 06:58] LABS: Platelet Estimate Normal (Normal); Platelet Morphology Normal (Normal)
[2018-08-18] MEDS: fentaNYL 10 mcg/mL Premix Drip 2,500 MCG/250 ML BAG IV.SIG PRN ×2 (07:59→17:53)
[2018-08-18] MEDS: chlordiazePOXIDE 25 MG Capsule PO SCH ×2 (08:00→20:21)
[2018-08-18] MEDS: hydrALAZINE 25 MG Tablet PO SCH ×3 (08:00→17:09)
[2018-08-18] MEDS: Carvedilol 6.25 MG Tablet PO SCH (08:00)
[2018-08-18] MEDS: Folic Acid 1 MG Tablet PO SCH (08:00)
[2018-08-18] MEDS: Famotidine PF Inj 20 MG/2 ML Vial IV.PUSH SCH ×2 (08:00→20:21)
[2018-08-18] MEDS: Aspirin 300 MG Supp RECTAL SCH (08:01)
[2018-08-18] MEDS: Propofol 1000 mg/100 ml Inj 1,000 MG/100 ML BOTTLE IV.CONT PRN ×2 (08:02→11:19)
--- NOTE | 2018-08-18 08:21 | P.PNCC ---
Subjective Subjective Remarks/Hospital Course: 08/09: 58-year-old male who was found down in his friend's garage this morning. He has a history of alcohol abuse. He recently sold his house and was staying at a friend's home. Reportedly he was due to fly later today. Patient was brought to the ER by EMS and was noted to have involuntary movements with jerking movements involving upper and lower extremities as well as his head. He received Ativan 3 mg IV and was loaded with Keppra. Initially stroke alert was called. Head CT was negative for any bleed however there was question of C6 fracture. Neurology and neurosurgery were consulted. Patient was loaded with IV Cerebyx and Vimpat by neurology. He had a [place] J collar placed after placing hard cervical collar by neurosurgery. When I evaluated the patient in the ER he was still having involuntary movements which appeared to be episodic with occasional twitchings on his face and nystagmus. This did not appear to be generalized tonic-clonic convulsions however appeared more like an extrapyramidal reaction. I ordered a stat EEG. Patient moving around too much to obtain MRI at this time. His urine tox screen was negative. He was positive for alcohol. Patient nonverbal. His involuntary movements get exaggerated on stimulation. He was reportedly completely normal yesterday. 08/10: Patient had an episode of emesis last night followed by labored breathing. He continued to have involuntary movements. He was intubated and placed on mechanical ventilation. Currently sedated with propofol, orally intubated on mechanical ventilation. Awaiting MRI brain and C-spine. EEG done yesterday did not show any seizure activity. 08/11: Sedated, orally intubated on mechanical ventilation. MRI brain unremarkable. MRI C-spine with hairline C6 fracture with no displacement. 08/12: Remains sedated, orally intubated on mechanical ventilation. Reintubated yesterday for significant hypoxia and respiratory distress with O2 sats dropping to the 70s despite nonrebreather facemask. CT pulmonary angiogram was negative for PE and showed bilateral infiltrates at the bases. 08/13: Remains sedated, orally intubated on mechanical ventilation. On propofol /fentanyl GTT. Starting tube feeds 08/14: T-max 99.4. Currently 98.3. Scheduled for IR for lumbar puncture today. Patient acute injury. Patient is on vancomycin, acyclovir and did receive IV contrast recently. Renal ultrasound ordered. Urine eosinophils, sodium and creatinine ordered. Arousable and does follow commands on the ventilator. Breakthrough agitation/involuntary systemic movements noted 08/15: Plan for lumbar puncture today. Will likely try sedation vacation overnight. See 4 mg of midazolam overnight due to agitation. Appears comfortable. Intermittently follows commands. 08/16: Lumbar puncture from yesterday accomplished. We will try sedation vacation again today and tried on dexmedetomidine drip. Rash is much improved. Discontinued lacosamide possible source of rash. Remains leukopenic and elevated eosinophils. 08/17: Low-grade fevers overnight. Blood cultures x2, sputum performed. Will start on piperacillin/tazobactam vancomycin. Extubated today. Tolerated about 2 hours but became hypoxic on 100% nonrebreather and tachypneic. Intubated with axial traction. Will need tracheostomy has failed extubation x2 SUBJECTIVE: 08/18: T-max 100.1. Failed extubation requiring reintubation. Tracheostomy planned for 10 AM today. Objective Vital Signs / I&O: Vital Signs 08/17/18 08:20 08/17/18 08:21 08/17/18 08:28 Temperature Pulse Rate 81 86 Respiratory Rate 24 39 H Blood Pressure 236/104 H 166/76 H Pulse Oximetry 94 L 93 L 95 08/17/18 08:31 08/17/18 09:00 08/17/18 09:01 Temperature Pulse Rate 87 93 H 95 H Respiratory Rate 32 H 40 H 29 H Blood Pressure 169/77 H 161/85 H Pulse Oximetry 95 92 L 93 L 08/17/18 09:31 08/17/18 09:41 08/17/18 09:43 Temperature Pulse Rate 101 H 101 H 100 H Respiratory Rate 41 H 38 H 35 H Blood Pressure 200/94 H 204/97 H 202/96 H Pulse Oximetry 91 L 93 L 93 L 08/17/18 09:46 08/17/18 09:48 08/17/18 09:51 Temperature Pulse Rate 99 H 96 H 88 Respiratory Rate 32 H 17 18 Blood Pressure 226/119 H 188/86 H 189/84 H Pulse Oximetry 93 L 95 92 L 08/17/18 09:53 08/17/18 09:56 08/17/18 09:58 Temperature Pulse Rate 87 84 84 Respiratory Rate 20 19 19 Blood Pressure 168/73 H 164/71 H 176/76 H Pulse Oximetry 91 L 95 95 08/17/18 10:00 08/17/18 10:01 08/17/18 10:03 Temperature Pulse Rate 84 84 90 Respiratory Rate 19 19 19 Blood Pressure 174/79 H 226/105 H Pulse Oximetry 96 95 96 08/17/18 10:06 08/17/18 10:08 08/17/18 10:11 Temperature Pulse Rate 92 H 91 H 97 H Respiratory Rate 20 19 18 Blood Pressure 221/104 H 216/99 H 221/102 H Pulse Oximetry 96 96 96 08/17/18 10:30 08/17/18 11:00 08/17/18 11:03 Temperature Pulse Rate 90 85 85 Respiratory Rate 19 21 26 H Blood Pressure 188/81 H 172/136 H 169/72 H Pulse Oximetry 96 95 94 L 08/17/18 11:30 08/17/18 11:33 08/17/18 12:00 Temperature 98.6 F Pulse Rate 80 80 78 Respiratory Rate 18 18 18 Blood Pressure 163/72 H 162/70 H Pulse Oximetry 98 98 97 08/17/18 12:30 08/17/18 13:00 08/17/18 13:30 Temperature Pulse Rate 74 69 68 Respiratory Rate 19 17 19 Blood Pressure 166/71 H 171/76 H 177/80 H Pulse Oximetry 99 100 100 08/17/18 14:00 08/17/18 14:30 08/17/18 15:00 Temperature Pulse Rate 68 84 89 Respiratory Rate 20 18 22 Blood Pressure 190/88 H 180/81 H 193/86 H Pulse Oximetry 100 98 94 L 08/17/18 15:30 08/17/18 15:35 08/17/18 16:00 Temperature Pulse Rate 75 84 79 Respiratory Rate 19 24 22 Blood Pressure 133/60 167/76 H Pulse Oximetry 98 99 97 08/17/18 16:30 08/17/18 17:00 08/17/18 17:29 Temperature Pulse Rate 74 70 85 Respiratory Rate 19 18 30 H Blood Pressure 190/77 H 208/84 H 217/91 H Pulse Oximetry 98 99 96 08/17/18 17:30 08/17/18 18:00 08/17/18 18:05 Temperature Pulse Rate 83 88 79 Respiratory Rate 17 17 16 Blood Pressure 207/86 H 197/83 H Pulse Oximetry 95 93 L 95 12/30/18 18:30 08/17/18 19:00 08/17/18 19:30 Temperature 100.1 F H Pulse Rate 86 72 80 Respiratory Rate 21 18 20 Blood Pressure 197/91 H 135/63 153/78 H Pulse Oximetry 96 98 97 08/17/18 20:00 08/17/18 20:30 08/17/18 21:00 Temperature Pulse Rate 72 72 75 Respiratory Rate 17 18 17 Blood Pressure 143/65 H 138/63 133/78 Pulse Oximetry 96 97 97 08/17/18 21:20 08/17/18 21:22 08/17/18 21:30 Temperature Pulse Rate 70 70 Respiratory Rate 16 16 18 Blood Pressure 148/69 H Pulse Oximetry 98 98 08/17/18 22:00 08/17/18 22:02 08/17/18 22:10 Temperature Pulse Rate 73 83 85 Respiratory Rate 18 24 21 Blood Pressure 185/80 H 210/88 H 178/84 H Pulse Oximetry 98 97 95 08/17/18 22:30 08/17/18 23:00 08/17/18 23:30 Temperature Pulse Rate 72 71 71 Respiratory Rate 18 18 19 Blood Pressure 179/72 H 180/74 H 189/76 H Pulse Oximetry 98 97 97 08/17/18 23:57 08/18/18 00:00 08/18/18 00:34 Temperature Pulse Rate 72 77 82 Respiratory Rate 18 20 21 Blood Pressure 200/149 H 175/79 H Pulse Oximetry 97 97 08/18/18 00:37 08/18/18 00:47 08/18/18 01:00 Temperature 98.3 F Pulse Rate 82 74 73 Respiratory Rate 19 18 18 Blood Pressure 207/92 H 209/77 H 201/81 H Pulse Oximetry 94 L 97 97 08/18/18 01:30 08/18/18 01:42 08/18/18 02:00 Temperature Pulse Rate 71 70 69 Respiratory Rate 18 19 18 Blood Pressure 181/70 H 176/74 H 171/71 H Pulse Oximetry 98 98 98 08/18/18 02:30 08/18/18 02:46 08/18/18 02:48 Temperature Pulse Rate 68 80 81 Respiratory Rate 19 26 H 23 Blood Pressure 190/85 H 175/79 H 186/80 H Pulse Oximetry 98 96 100 08/18/18 03:00 08/18/18 03:06 08/18/18 03:15 Temperature Pulse Rate 80 75 76 Respiratory Rate 17 18 20 Blood Pressure 205/88 H 203/86 H 197/81 H Pulse Oximetry 95 96 96 08/18/18 03:30 08/18/18 03:45 08/18/18 04:00 Temperature Pulse Rate 80 73 71 Respiratory Rate 18 16 17 Blood Pressure 205/86 H 175/73 H 166/70 H Pulse Oximetry 95 95 94 L 08/18/18 04:15 08/18/18 04:30 08/18/18 04:45 Temperature Pulse Rate 70 69 70 Respiratory Rate 18 17 18 Blood Pressure 144/68 H 150/65 H 147/65 H Pulse Oximetry 94 L 94 L 94 L 08/18/18 04:46 08/18/18 04:49 08/18/18 05:00 Temperature Pulse Rate 69 71 Respiratory Rate 17 17 18 Blood Pressure 157/66 H Pulse Oximetry 94 L 94 L 08/18/18 05:15 08/18/18 05:30 08/18/18 05:45 Temperature Pulse Rate 69 69 72 Respiratory Rate 19 20 19 Blood Pressure 162/67 H 162/67 H 166/68 H Pulse Oximetry 95 95 94 L 08/18/18 06:00 08/18/18 06:15 Temperature Pulse Rate 75 72 Respiratory Rate 19 18 Blood Pressure 174/72 H 176/74 H Pulse Oximetry 94 L 95 Intake & Output 08/17/18 08/18/18 08/18/18 18:59 06:59 18:59 Intake Total 2046.2 / 2046.2 1236 / 1236 250 / 250 Output Total 20 / 20 2049 / 2049 Balance 2026.2 / 2026.2 -814 / -814 250 / 250 Weight 103.6 kg Intake: IV 1556.2 / 1556.2 900 / 900 250 / 250 Precedex Inj 200 MCG In NS Inj 50 / 50 48 ML @ 0.2 MCG/KG/HR 5.13 mls/ hr IV.CONT TITRATE PRN Rx#: [id number] Versed Inj 100 mg In 100 ml @ 2 100 / 100 100 / 100 MG/HR 2 mls/hr IV.CONT TITRATE PRN Rx#:[id number] Diprivan 1000 mg/100 ml Inj 1, 30 / 30 000 mg In 100 ml @ 5 MCG/KG/MIN 2.634 mls/hr IV.CONT TITRATE PRN Rx#:[id number] Cardene Inj 25 MG In NS Inj 240 250 / 250 ML @ 5 MG/HR 50 mls/hr IV.CONT TITRATE PRN Rx#:[id number] MVI-12 Inj 10 ML Thiamine Inj 511.2 / 511.2 100 MG Folvite Inj 1 MG In D5W- 1/2 NS Inj 500 ML @ 127.8 mls/ hr IV.SIG DAILY [facility] Rx#: [id number] Zosyn 4.5 GM Premix 4.5 gm In 100 / 100 300 / 300 100 ml @ 200 mls/hr IV.SIG Q6H [facility] Rx#:[id number] Vancomycin Inj 1,500 MG In NS 515 / 515 Inj 500 ML @ 257.5 mls/hr IV. SIG ONCE ONE Rx#:[id number] fentaNYL 10 mcg/mL Premix Drip 250 / 250 250 / 250 250 / 250 2,500 mcg In 250 ml @ 50 MCG/HR 5 mls/hr IV.SIG TITRATE PRN Rx #:[id number] Tube Feeding 290 / 290 136 / 136 Tube Irrigant 200 / 200 200 / 200 Output: Stool 20 / 20 Urine Amount (Catheter) 2049 Indwelling Urethral Catheter 2049 Other: Date of Last Bowel Movement 08/15/18 08/18/18 # Incontinent Bowel Movements 3 Result Diagrams: 08/18/18 03:27 08/18/18 03:27 Other Results: Microbiology 08/17/18 00:30 Sputum - Endotracheal Gram Stain - Final 08/11/18 14:29 Blood - Peripheral Aerobic Blood Culture - Final No growth in 5 days 08/11/18 14:29 Blood - Peripheral Anaerobic Blood Culture - Final No growth in 5 days 08/11/18 14:24 Blood - Peripheral Aerobic Blood Culture - Final No growth in 5 days 08/11/18 14:24 Blood - Peripheral Anaerobic Blood Culture - Final No growth in 5 days 08/11/18 15:00 Sputum - Endotracheal Gram Stain - Final 08/11/18 15:00 Sputum - Endotracheal Sputum Culture - Final Heavy growth normal respiratory sherman 08/09/18 11:00 Catheterized Urine Urine Culture - Final No growth in 48 hours Imaging: Head CT 08/09/18 09:20 CONCLUSION: 1. No acute intracranial abnormality is seen. 2. Mild widening of the cortical sulci which could suggest some atrophy. Report was called by [Dr. Dutton to at 9:49 AM. ] Chest X-Ray 08/09/18 09:21 CONCLUSION: No acute cardiopulmonary process. Cervical Spine CT 08/09/18 09:23 CONCLUSION: 1. Fracturing through anterior flowing spurs at the anterior C6 level with the fracture extending into the anterior inferior left lateral aspect of the C6 vertebral body. Empty displacement is not seen. No other possible fractures are seen. 2. 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 3. Degenerative change. Head CTA 08/09/18 09:28 CONCLUSION: Negative CTA. Report was called by [Dr. Dutton to Dr. Faustin. A message was left on the voicemail. ] Neck CTA 08/09/18 09:28 CONCLUSION: Negative CTA of the neck. Cervical Spine MRI 08/10/18 00:00 CONCLUSION: 1. Fracturing through the prominent flowing spurs at the C6 level and extending into the anterior inferior aspect of C6 vertebral body without displacement. Minimal edema seen around the fracture site. 2. Prominent spurring extending from C4 to into the thoracic spine consistent with DISH. 3. Mild central disc protrusion at the C3-C4 level. 4. Mild disc protrusion with the apex at the left lateral recess region at the C5-C6 level. 5. Neural foraminal narrowing at the C3-C4 and C5-C6 levels. Chest X-Ray 08/10/18 00:00 CONCLUSION: ET tube in good position. Lungs are grossly clear. Head MRI 08/10/18 00:00 CONCLUSION: 1. No acute intracranial abnormality. 2. Mild atrophy. Lumbar Spine CT 08/10/18 00:00 CONCLUSION: 1. No acute abnormality seen. 2. Prominent spur seen throughout the thoracic and lumbar spine likely from DISH. 3. Mild disc bulges at the L3-L4 and L4-L5 levels. 4. Lower lumbar facet hypertrophy. Thoracic Spine CT 08/10/18 00:00 CONCLUSION: 1. No fracture is seen. 2. Prominent spurring seen throughout the thoracic spine but be secondary to DISH. 3. Subpleural areas of consolidation or atelectasis at the posterior lower lungs. Chest CTA 08/11/18 00:00 CONCLUSION: 1. No evidence of any pulmonary embolism. 2. There are bilateral infiltrates predominantly in the posterior mid to lower lung villarreal. 3. 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 Chest X-Ray 08/11/18 13:29 CONCLUSION: Increasing bibasal infiltrates. Venous Doppler Study 08/12/18 00:00 CONCLUSION: 1. The study is negative for bilateral lower extremity deep venous thrombosis. Chest X-Ray 08/13/18 10:17 CONCLUSION: Mild improvement in the bibasilar pulmonary infiltrates compared to the prior exam. Venous Doppler Study 08/14/18 00:00 CONCLUSION: 1. Occlusive and nonocclusive thrombus within the bilateral cephalic veins. Abdomen/Bladder Ultrasound 08/14/18 07:24 CONCLUSION: 1. Mild prominence of the right collecting system suggestive of some mild hydronephrosis. 2. The left kidney is unremarkable. 3. The urinary bladder appears to be distended with a volume of 1554 mL. Lumbar Puncture Fluoroscopy 08/15/18 12:27 CONCLUSION: 1. Uncomplicated fluoroscopically guided lumbar puncture. Chest X-Ray 08/16/18 06:00 CONCLUSION: Modest worsening parenchymal consolidation and small effusions at each base. Venous Doppler Study 08/17/18 00:00 CONCLUSION: 1. Occlusive thrombus of the cephalic veins bilaterally. No other venous thrombosis. Chest X-Ray 08/17/18 09:51 CONCLUSION: Satisfactory position of endotracheal and nasogastric tubes Persistent significant mid lung and basilar opacity without significant improvement Objective Remarks: GENERAL: 58-year-old male currently orotracheally intubated no acute distress SKIN: Warm and dry. Positive diffuse maculopapular rash blanchable. Involving face, thorax and lower extremities improved. New blisters today. HEAD: Atraumatic. Normocephalic. EYES: Pupils equal and round. No scleral icterus. No injection or drainage. ENT: No nasal bleeding or discharge. Mucous membranes pink and moist. NECK: Trachea midline. No JVD. CARDIOVASCULAR: Regular rate and rhythm. S1, S2. No S4. No murmur RESPIRATORY: No accessory muscle use. Few coarse crackles in the bases. GASTROINTESTINAL: Abdomen soft, non-tender, nondistended. Hypoactive bowel sounds are appreciated MUSCULOSKELETAL: Extremities without significant peripheral edema. No obvious deformities. NEUROLOGICAL: Arousable on the ventilator. Moving all 4 extremities spontaneously. Assessment and Plan - Assessment and Plan Plan: Neuro/Psych: Acute toxic metabolic encephalopathy Involuntary movements -EEG 08/09- for epileptiform activity Anterior C6 fracture -[place] J collar times 6 weeks EtOH abuse/withdrawal. Level 114 admission Currently on propofol at 50 william grams per kilogram per minute/fentanyl drip at 250 william grams an hour for sedation/analgesia while intubated Dexmedetomidine drip added 08/14 for weaning Follow neuro checks. Neurology neurosurgery consulted. EEG done in ER did not reveal any seizure activity with ongoing involuntary movements. MRI brain unremarkable, MRI C-spine nondisplaced C6 fracture, continue [place] J collar for 6 weeks per neurosurgery. Aspirin placed on hold for lumbar puncture. Okay to resume dIscontinued lacosamide 100 mg IV twice daily secondary to rash Started thiamine/MVI/folic acid daily and history of EtOH abuse Currently on chlordiazepoxide 50 mg mg twice daily. 08/15 discontinued quetiapine 50 mg twice daily due to rash Started Latuda 40 mg daily and Depakene 250 mg twice daily 08/17 for mood stabilization Neurology started acyclovir IV while awaiting lumbar puncture. This discontinued 08/15 with negative HSV Cardiovascular: Hypertensive emergency Elevated cholesterol/total Elevated HDL Rhabdomyolysis downtrending CPK to 1000 Initially was hypertensive on arrival. Hydralazine and labetalol and nicardipine drip as needed. Continue carvedilol 12.5 mg p.o. twice daily Troponin 0.04 Pulmonary: Acute hypoxic hypercapnic respiratory failure Intubated for airway protection and placed on mechanical ventilation following episode of emesis with question of aspiration on 08/10 AM. Extubated 08/17 but reintubated same day PRVC ventilation 16/550/1/5/40 vent bundle, Albuterol/ipratropium aerosols every 4 hours with albuterol aerosols every 2 hours as needed dyspnea tolerated CPAP trial and extubated on 08/11 however about 5 hours following extubation and required reintubation for hypoxic respiratory failure of unclear etiology. CT pulmonary angiogram negative for PE but possible right subclavian thrombus. Check upper extremity Dopplers today.. Consulted pulmonary for further evaluation of hypoxic respiratory failure Chest x-ray in a.m. post tracheostomy today GI/liver: Elevated transaminases downward trending Hypoalbuminemia with moderate protein calorie malnutrition Continue tube feeds with Nepro goal 50 cc an hour and advance to goal as tolerated. Hold due to tracheostomy planned for today Famotidine 20 mg daily for GI prophylaxis Docusate sodium/senna 1 tablet twice daily for bowel regimen. Added polyethylene glycol 17 g twice daily and lactulose 30 cc twice daily Negative hepatitis panel FEN/renal/: Acute kidney injury resolving Acute hypernatremia Hypomagnesia Urinary retention with mild bilateral hydronephrosis IV hydration, strict intake output, monitor and replete electrolytes, follow BUN /creatinine. Bicarbonate drip discontinued 08/13. Free water 200 cc every 8 hours Potassium chloride 25 mEq by tube x1 now. Recheck in a.m. We will received/start on furosemide 40 mg IV twice daily Avoid nephrotoxic medications. Will Place Goff if needed for urinary retention. ID: [id number] discontinued vancomycin, piperacillin/tazobactam and acyclovir. Watch for fever/leukocytosis Blood cultures x21 10/10 no growth to date repeat blood cultures 08/17 and sputum pending Sputum 08/11 no growth to date Number puncture with IR today 08/15-negative HSV. Started vancomycin, piperacillin/tazobactam 08/17 3 discontinued Zosyn 08/18 due to rash. Started aztreonam 2 g IV every 8 hours Endocrine: Watch for hyperglycemia, SSI for glycemic control with aspart insulin/low regimen every 6 hours Normal TSH Heme: Macrocytic anemia Documentation of prior possible right subclavian occlusion -negative Doppler Bilateral cephalic occlusive and nonocclusive superficial venous thrombosis Follow CBC. No indication for transfusion of blood products at this time Subcu heparin DVT prophylaxis MSK: Elevated BMI Diffuse idiopathic skeletal hyperostosis drug rash possible DR ESS Weight loss encouraged PT evaluate and treat On IV famotidine, diphenhydramine. Received 1 dose of dexamethasone today. Observe for Prophylaxis: SCDs. heparin 5000 units subcutaneously every 8 hourly 24 hours post lumbar puncture, famotidine for GI prophylaxis Condition critical Time spent on critical care excluding procedures 30 minutes Code Status: Full code Discussed Condition With: Daughter by phone yesterday for tracheostomy. Care plan discussed questions answered.
[2018-08-18] MEDS: Chlorhexidine 0.12% Oral Kit 15 ML UDC OROPHARYNG SCH ×2 (08:57→20:22)
[2018-08-18] MEDS: amLODIPine 5 MG Tablet PO SCH (09:22)
[2018-08-18] MEDS: Aztreonam Inj 2 GM in Sodium Chloride 0.9% Inj 100 ML IV.SIG SCH ×2 (09:27→16:15)
--- NOTE | 2018-08-18 09:54 | P.PNPL ---
Subjective Interval history: Patient remains sedated and intubated. NPO for trach today. T:100.1 yesterday. Physical Exam Vital signs: Vital Signs 08/17/18 09:51 08/17/18 09:53 08/17/18 09:56 Temperature Pulse Rate 88 87 84 Respiratory Rate 18 20 19 Blood Pressure 189/84 H 168/73 H 164/71 H Pulse Oximetry 92 L 91 L 95 08/17/18 09:58 08/17/18 10:00 08/17/18 10:01 Temperature Pulse Rate 84 84 84 Respiratory Rate 19 19 19 Blood Pressure 176/76 H 174/79 H Pulse Oximetry 95 96 95 08/17/18 10:03 08/17/18 10:06 08/17/18 10:08 Temperature Pulse Rate 90 92 H 91 H Respiratory Rate 19 20 19 Blood Pressure 226/105 H 221/104 H 216/99 H Pulse Oximetry 96 96 96 08/17/18 10:11 08/17/18 10:30 08/17/18 11:00 Temperature Pulse Rate 97 H 90 85 Respiratory Rate 18 19 21 Blood Pressure 221/102 H 188/81 H 172/136 H Pulse Oximetry 96 96 95 08/17/18 11:03 08/17/18 11:30 08/17/18 11:33 Temperature Pulse Rate 85 80 80 Respiratory Rate 26 H 18 18 Blood Pressure 169/72 H 163/72 H Pulse Oximetry 94 L 98 98 08/17/18 12:00 08/17/18 12:30 08/17/18 13:00 Temperature 98.6 F Pulse Rate 78 74 69 Respiratory Rate 18 19 17 Blood Pressure 162/70 H 166/71 H 171/76 H Pulse Oximetry 97 99 100 08/17/18 13:30 08/17/18 14:00 08/17/18 14:30 Temperature Pulse Rate 68 68 84 Respiratory Rate 19 20 18 Blood Pressure 177/80 H 190/88 H 180/81 H Pulse Oximetry 100 100 98 08/17/18 15:00 08/17/18 15:30 08/17/18 15:35 Temperature Pulse Rate 89 75 84 Respiratory Rate 22 19 24 Blood Pressure 193/86 H 133/60 Pulse Oximetry 94 L 98 99 08/17/18 16:00 08/17/18 16:30 08/17/18 17:00 Temperature Pulse Rate 79 74 70 Respiratory Rate 22 19 18 Blood Pressure 167/76 H 190/77 H 208/84 H Pulse Oximetry 97 98 99 08/17/18 17:29 08/17/18 17:30 08/17/18 18:00 Temperature Pulse Rate 85 83 88 Respiratory Rate 30 H 17 17 Blood Pressure 217/91 H 207/86 H Pulse Oximetry 96 95 93 L 08/17/18 18:05 08/17/18 18:30 08/17/18 19:00 Temperature 100.1 F H Pulse Rate 79 86 72 Respiratory Rate 16 21 18 Blood Pressure 197/83 H 197/91 H 135/63 Pulse Oximetry 95 96 98 08/17/18 19:30 08/17/18 20:00 08/17/18 20:30 Temperature Pulse Rate 80 72 72 Respiratory Rate 20 17 18 Blood Pressure 153/78 H 143/65 H 138/63 Pulse Oximetry 97 96 97 08/17/18 21:00 08/17/18 21:20 08/17/18 21:22 Temperature Pulse Rate 75 70 Respiratory Rate 17 16 16 Blood Pressure 133/78 Pulse Oximetry 97 98 08/17/18 21:30 08/17/18 22:00 08/17/18 22:02 Temperature Pulse Rate 70 73 83 Respiratory Rate 18 18 24 Blood Pressure 148/69 H 185/80 H 210/88 H Pulse Oximetry 98 98 97 08/17/18 22:10 08/17/18 22:30 08/17/18 23:00 Temperature Pulse Rate 85 72 71 Respiratory Rate 21 18 18 Blood Pressure 178/84 H 179/72 H 180/74 H Pulse Oximetry 95 98 97 08/17/18 23:30 08/17/18 23:57 08/18/18 00:00 Temperature Pulse Rate 71 72 77 Respiratory Rate 19 18 20 Blood Pressure 189/76 H 200/149 H 175/79 H Pulse Oximetry 97 97 97 08/18/18 00:34 08/18/18 00:37 08/18/18 00:47 Temperature 98.3 F Pulse Rate 82 82 74 Respiratory Rate 21 19 18 Blood Pressure 207/92 H 209/77 H Pulse Oximetry 94 L 97 08/18/18 01:00 08/18/18 01:30 08/18/18 01:42 Temperature Pulse Rate 73 71 70 Respiratory Rate 18 18 19 Blood Pressure 201/81 H 181/70 H 176/74 H Pulse Oximetry 97 98 98 08/18/18 02:00 08/18/18 02:30 08/18/18 02:46 Temperature Pulse Rate 69 68 80 Respiratory Rate 18 19 26 H Blood Pressure 171/71 H 190/85 H 175/79 H Pulse Oximetry 98 98 96 08/18/18 02:48 08/18/18 03:00 08/18/18 03:06 Temperature Pulse Rate 81 80 75 Respiratory Rate 23 17 18 Blood Pressure 186/80 H 205/88 H 203/86 H Pulse Oximetry 100 95 96 08/18/18 03:15 08/18/18 03:30 08/18/18 03:45 Temperature Pulse Rate 76 80 73 Respiratory Rate 20 18 16 Blood Pressure 197/81 H 205/86 H 175/73 H Pulse Oximetry 96 95 95 08/18/18 04:00 08/18/18 04:15 08/18/18 04:30 Temperature Pulse Rate 71 70 69 Respiratory Rate 17 18 17 Blood Pressure 166/70 H 144/68 H 150/65 H Pulse Oximetry 94 L 94 L 94 L 08/18/18 04:45 08/18/18 04:46 08/18/18 04:49 Temperature Pulse Rate 70 69 Respiratory Rate 18 17 17 Blood Pressure 147/65 H Pulse Oximetry 94 L 94 L 08/18/18 05:00 08/18/18 05:15 08/18/18 05:30 Temperature Pulse Rate 71 69 69 Respiratory Rate 18 19 20 Blood Pressure 157/66 H 162/67 H 162/67 H Pulse Oximetry 94 L 95 95 08/18/18 05:45 08/18/18 06:00 08/18/18 06:15 Temperature Pulse Rate 72 75 72 Respiratory Rate 19 19 18 Blood Pressure 166/68 H 174/72 H 176/74 H Pulse Oximetry 94 L 94 L 95 08/18/18 06:30 08/18/18 06:45 08/18/18 07:00 Temperature Pulse Rate 70 69 76 Respiratory Rate 18 17 22 Blood Pressure 170/72 H 164/70 H 168/71 H Pulse Oximetry 95 95 93 L 08/18/18 07:15 08/18/18 07:30 08/18/18 07:45 Temperature Pulse Rate 71 76 67 Respiratory Rate 20 17 17 Blood Pressure 162/69 H 178/78 H 167/60 H Pulse Oximetry 93 L 100 100 08/18/18 08:00 08/18/18 08:15 08/18/18 08:30 Temperature 99.0 F Pulse Rate 62 60 60 Respiratory Rate 16 16 16 Blood Pressure 149/67 H 145/65 H 145/62 H Pulse Oximetry 100 100 99 08/18/18 08:45 08/18/18 08:57 08/18/18 09:00 Temperature Pulse Rate 60 60 Respiratory Rate 16 16 16 Blood Pressure 144/63 H 143/63 H Pulse Oximetry 99 99 08/18/18 09:15 08/18/18 09:22 08/18/18 09:30 Temperature Pulse Rate 60 60 Respiratory Rate 16 16 16 Blood Pressure 146/64 H 152/67 H Pulse Oximetry 99 99 08/18/18 09:35 08/18/18 09:39 08/18/18 09:48 Temperature Pulse Rate Respiratory Rate 16 16 Blood Pressure Pulse Oximetry 99 Intake & Output 08/17/18 08/18/18 08/18/18 18:59 06:59 18:59 Intake Total 2046.2 / 2046.2 1236 / 1236 500 / 500 Output Total 20 2049 / 2049 Balance 2026.2 / 2026.2 -814 / -814 500 / 500 Weight 103.6 kg Intake: IV 1556.2 / 1556.2 900 / 900 500 / 500 Precedex Inj 200 MCG In NS Inj 50 / 50 48 ML @ 0.2 MCG/KG/HR 5.13 mls/ hr IV.CONT TITRATE PRN Rx#: [id number] Versed Inj 100 mg In 100 ml @ 2 100 / 100 100 / 100 MG/HR 2 mls/hr IV.CONT TITRATE PRN Rx#:[id number] Diprivan 1000 mg/100 ml Inj 1, 30 / 30 000 mg In 100 ml @ 5 MCG/KG/MIN 2.634 mls/hr IV.CONT TITRATE PRN Rx#:[id number] Cardene Inj 25 MG In NS Inj 240 250 / 250 250 / 250 ML @ 5 MG/HR 50 mls/hr IV.CONT TITRATE PRN Rx#:[id number] MVI-12 Inj 10 ML Thiamine Inj 511.2 / 511.2 100 MG Folvite Inj 1 MG In D5W- 1/2 NS Inj 500 ML @ 127.8 mls/ hr IV.SIG DAILY [facility] Rx#: [id number] Zosyn 4.5 GM Premix 4.5 gm In 100 / 100 300 / 300 100 ml @ 200 mls/hr IV.SIG Q6H [facility] Rx#:[id number] Vancomycin Inj 1,500 MG In NS 515 / 515 Inj 500 ML @ 257.5 mls/hr IV. SIG ONCE ONE Rx#:[id number] fentaNYL 10 mcg/mL Premix Drip 250 / 250 250 / 250 250 / 250 2,500 mcg In 250 ml @ 50 MCG/HR 5 mls/hr IV.SIG TITRATE PRN Rx #:[id number] Tube Feeding 290 / 290 136 / 136 Tube Irrigant 200 / 200 200 / 200 Output: Stool 20 / 20 Urine Amount (Catheter) 2049 Indwelling Urethral Catheter 2049 Other: Date of Last Bowel Movement 08/15/18 08/18/18 08/18/18 # Incontinent Bowel Movements 3 - Constitutional no acute distress, average body habitus - Routine HEENT Exam Head: Present: normocephalic, atraumatic Eye: Present: EOMI, PERRL, normal accommodation, conjunctivae pink ENT: Present: mucous membranes moist - Routine Neck Exam Present: supple, trachea midline - Routine Respiratory Exam Present: patient mechanically ventilated, CTA bilaterally - Routine Cardiovascular Exam Present: RRR, S1, S2 - Routine Abdominal Exam Present: soft, normoactive bowel sounds - Routine Neurological Exam Present: altered mental status - Urinary Catheter Management Indwelling Urethral Catheter Cath placed during this visit: yes, but has since been removed by the nurse Reason for continuing: Hourly intake/output Insertion date: 08/09/18 Insertion time: 18:30 Removal date: 08/11/18 Removal time: 09:50 Condom Cath placed during this visit: no Reason for continuing: Not indwelling catheter Straight Cath placed during this visit: yes Reason for continuing: Acute urinary retention Insertion date: 08/17/18 Insertion time: 10:30 Assessment and Plan - Plan 1. VDRF 2. Aspiration pneumonia. 3. Encephalopathy. 4. Rhabdomyolysis with elevated CK. 5. C6 fracture. 6. Ethanol intoxication. 7. Anemia and thrombocytopenia. 8 Occlusive thrombus of the cephalic veins bilaterally. Plan Continue with vent support and maintain sats >92%. Bronchodilators, ICU vent bundle. SBT daily as miko. On PRVC RR16, TV 550, IT:1.0 PEEP:5 and FIO2: 40%. CXR 08/17: mid lung and basilar opacity without significant improvement For trach today Monitor neuro status closely, daily sedation vacation. Neuro is following, Continue Thiamine. S/p LP HSV PCR negative Abx- Off vancomycin and Zosyn. Aztreonam started today, Monitor for signs of infection( fever and WBC). BC 08/22 bottles: GPC ? contaminant, recheck BC x 2 sets today 08/11 sputum culture: Normal resp sherman Monitor renal function and electrolyte replacement per protocol. Doppler US LE negative for DVT Doppler US UE: Occlusive thrombus of the cephalic veins bilaterally Echocardiogram showed EF of 50% to 55%. GI and DVT prophylaxis. Continue treatment plan.
[2018-08-18] MEDS ORDERED: Midazolam Inj 5 MG/ML 1 ML Vial ONE (10:14)
--- NOTE | 2018-08-18 10:51 | P.PCN ---
Date of procedure: 08/18/18 Pre-op diagnosis: Acute respiratory failure Post-op diagnosis: same Procedure: DATE: 08/18/2018 Percutaneous tracheostomy INDICATION: Acute on chronic respiratory failure/failed extubation x2 CONSENT Informed consent for procedure was obtained . DESCRIPTION OF THE PROCEDURE The patient was placed in supine position. The skin was cleansed with Chloraprep. Additional barrier precautions included large sterile drape, sterile gloves, sterile gown, face mask, and hat. 1 % lidocaine with epinephrine was used for local anesthesia. Patient was on ACV ventilation FiO2 100% PEEP of 5. Respiratory rate of 18. Tidal volume around 500. Patient was anesthetized using propofol drip at 15 mcg/kg/min, midazolam drip at 10 mg an hour and fentanyl drip at 50 william grams an hour. Patient received 5 mg of midazolam and 100 mg rocuronium. Please sees Dr. Cheema note for bronchoscopy portion. A small incision was made slightly above the sternal notch. Dissected down and palpated the first and second cricoid rings. Insertion needle was placed directly into the trachea on second attempt without complication. Guidewire was placed. Punctured and dilated x3. Over guidewire an 8.0 Shiley percutaneous rectus was placed without complication. Balloon was inflated. We connected the ventilator with adequate tidal volume. Place with very minimal bleeding. Saturations remained above 95% at all times. COMPLICATIONS: No apparent complications. STAT chest x-ray pending at time of dictation Anesthesia: local, other Surgeon: Candido Conn Irb Compliance Coordinator: Wilfred Cheema Estimated blood loss (mL): 2 Pathology: none sent Condition: stable Disposition: ICU
[2018-08-18] MEDS: Multivitamin Inj 10 ML, Thiamine Inj 100 MG, Folic Acid Inj 1 MG in Dextrose 5%/NaCl 0.... IV.SIG SCH (11:11)
--- NOTE | 2018-08-18 11:45 | XR ---
EXAM DATE: 08/18/2018 11:40 AM EST AGE/SEX: 58 years / Male INDICATIONS: Post tracheostomy. CLINICAL DATA: This is the patient's subsequent encounter. Patient reports that signs and symptoms h ave been present for 1 week and indicates a pain score of 0/10. MEDICAL/SURGICAL HISTORY: None. None. COMPARISON: [facility] – [place], [place], CHEST 1V SINGLE AP, 08/17/2018. . FINDINGS: Tracheostomy tube is in good position. Feeding tube across the GE junction. Moderate bibasilar parenc hymal changes are evident worse on the left stable in the interval. CONCLUSION: Trach tube in good position. There is no pneumothorax Electronically signed by: Devin Zaragoza MD Board Certified Radiologist 08/18/2018 11:44 AM EST
--- NOTE | 2018-08-18 12:24 | P.CONGI ---
History of Present Illness Consult date: 08/18/18 Consult reason: PEG tube placement Chief complaint: AMS, C6 Vertebral fx, alcohol abuse, History of Present Illness: This patient is a 58-year-old male with past medical history significant for EtOH abuse and hypertension. Surgical history unknown. Patient presented to [facility] emergency room on 08/09/2018 by EMS. Patient was found on the floor of a friend's garage. Upon arrival, head CT was negative for bleed however there will was a noted C6 fracture. Patient presently wearing hard cervical collar. Our service has been consulted to evaluate patient for PEG tube placement. 08/18/2018 tracheostomy placement completed. Patient currently mechanically ventilated, FiO2 70%. Fentanyl, Versed and nicardipine drip infusing as well as propofol. Patient has Dobbhoff in place as nasogastric tube. <Julienne Michael - Last Filed: 08/18/18 12:06> Review of Systems All other systems reviewed negative except as stated in HPI <Julienne Michael - Last Filed: 08/18/18 12:06> PMFSH - History History Provided By: Friend, Regional Account Manager / EMT - Medical / Surgical Hx Neg / Unobtainable Medical Problems Denied: Unable to Obtain - Medical History Medical History: Medical History (Last Reviewed 08/16/18 @ 14:11 by Cheri Bui) ETOH abuse HTN (hypertension) - Tobacco History Tobacco Use In Past 30 Days: Yes Smoking Status: Current every day smoker Tobacco Type: Cigarettes - Alcohol History How Often Do You Have a Drink Containing Alcohol: Unable to Obtain - Substance Use History Substance History: Unable to Obtain - Travel History Recent Travel in the [place] Within the Last 8 Weeks: No Recent Travel Out of the Country Within the Last 8 Weeks: No - Immunization History Tetanus Immunization: Unable to Assess <Julienne Michael - Last Filed: 08/18/18 12:06> - Medical History Medical History: Medical History (Last Reviewed 08/16/18 @ 14:11 by Cheri Bui) ETOH abuse HTN (hypertension) <Jaxon Jensen - Last Filed: 08/18/18 13:13> Medications and Allergies Active Medications: Active Medications Acetaminophen (Tylenol) 650 mg PO Q4H PRN PRN Reason: temp > 100F Last Admin: 08/17/18 00:33 Dose: 650 mg Albuterol (Duoneb Neb (Manuela)) 1 ampul NEB Q4HR NEB [facility] Last Admin: 08/18/18 09:00 Dose: 1 ampul Albuterol (Albuterol Neb (Prn)) 2.5 mg NEB Q2HR NEB PRN PRN Reason: DYSPNEA Amlodipine Besylate (Norvasc) 5 mg PO DAILY [facility] Last Admin: 08/18/18 09:22 Dose: 5 mg Artificial Tears (Tears Naturale Opth Drops) 1 drop EACH EYE Q8H [facility] Last Admin: 08/18/18 08:01 Dose: 1 drop Aspirin (Aspirin Supp) 300 mg RECTAL DAILY [facility] Last Admin: 08/18/18 08:01 Dose: Not Given Carvedilol (Coreg) 12.5 mg PO BID [facility] Chlordiazepoxide (Librium) 50 mg PO BID [facility] Last Admin: 08/18/18 08:00 Dose: 50 mg Chlorhexidine Gluconate (Peridex 0.12% Oral Kit) 15 ml OROPHARYNG BID@0800, 2000 [facility] Last Admin: 08/18/18 08:57 Dose: 15 ml Dextrose (D50w Vial) 50 ml IV.PUSH UNSCH PRN PRN Reason: PER HYPOGLYCEMIA PROTOCOL Diphenhydramine HCl (Benadryl Inj) 25 mg IV.PUSH Q6H [facility] Stop: 08/21/18 08:59 Last Admin: 08/18/18 09:27 Dose: 25 mg Famotidine (Pepcid Pf Inj) 20 mg IV.PUSH Q12HR [facility] Flumazenil (Romazecon Inj) 0.2 mg IV.PUSH Q1M PRN PRN Reason: OVERSEDATION Folic Acid (Folic Acid) 1 mg PO DAILY [facility] Last Admin: 08/18/18 08:00 Dose: 1 mg Furosemide (Lasix Inj) 40 mg IV.PUSH BID@0900,1800 [facility] Last Admin: 08/18/18 09:27 Dose: 40 mg Glucagon (Glucagon Inj) 1 mg OTHER UNSCH PRN PRN Reason: for Hypoglycemia Protocol Heparin Sodium (Porcine) (Heparin Inj) 5,000 units SQ Q8H [facility] Last Admin: 08/18/18 11:12 Dose: Not Given Hydralazine HCl (Apresoline Inj) 10 mg IV.PUSH Q1H PRN PRN Reason: SBP >165 Last Admin: 08/18/18 00:53 Dose: 10 mg Hydralazine HCl (Apresoline) 25 mg PO TID [facility] Last Admin: 08/18/18 08:00 Dose: 25 mg Nicardipine HCl 25 mg/ Sodium (Chloride) 250 mls @ 50 mls/hr IV.CONT TITRATE PRN; Protocol PRN Reason: Per Protocol Last Admin: 08/18/18 11:13 Dose: 10 mg/hr, 100 mls/hr Propofol (Diprivan 1000 Mg/100 Ml Inj) 1,000 mg in 100 mls @ 2.634 mls/hr IV.CONT TITRATE PRN; Protocol PRN Reason: Per Protocol Last Admin: 08/18/18 11:19 Dose: 50 mcg/kg/min, 26.34 mls/hr Multivitamins 10 ml/ Thiamine HCl 100 mg/ Folic Acid 1 mg/Dextrose/Sodium Chloride 511.2 mls @ 127.8 mls/hr IV.SIG DAILY [facility] Last Admin: 08/18/18 11:11 Dose: 128 mls/hr Fentanyl (Fentanyl 10 Mcg/Ml Premix Drip) 2,500 mcg in 250 mls @ 5 mls/hr IV.SIG TITRATE PRN; Protocol PRN Reason: Per Protocol Last Admin: 08/18/18 07:59 Dose: 250 mcg/hr, 25 mls/hr Dexmedetomidine HCl 200 mcg/ (Sodium Chloride) 50 mls @ 5.13 mls/hr IV.CONT TITRATE PRN; Protocol PRN Reason: Per Protocol Last Titration: 08/17/18 10:01 Dose: Infused Midazolam HCl (Versed Inj) 100 mg in 100 mls @ 2 mls/hr IV.CONT TITRATE PRN; Protocol PRN Reason: See protocol Last Admin: 08/18/18 03:33 Dose: 10 mg/hr, 10 mls/hr Aztreonam 2 gm/ Sodium (Chloride) 100 mls @ 200 mls/hr IV.SIG Q8H [facility] Last Infusion: 08/18/18 11:10 Dose: Infused Vancomycin HCl 1,500 mg/ (Sodium Chloride) 515 mls @ 250 mls/hr IV.SIG Q24H MANUELA Labetalol HCl (Trandate Inj) 10 mg IV.PUSH Q1H PRN PRN Reason: Sbp>160, Dbp>90 HR > 65 Last Admin: 08/18/18 01:36 Dose: 10 mg Lactulose (Lactulose Liq) 30 ml PO BID [facility] Last Admin: 08/18/18 08:01 Dose: Not Given Miscellaneous Information ([facility] Ordered Lab Info) 0 each OTHER ONCE ONE Stop: 08/21/18 11:46 Miscellaneous Medication () 1 each OROPHARYNG 0000,0400,1200,1600 [facility] Last Admin: 08/18/18 11:20 Dose: 1 each Oxycodone HCl (Roxicodone Intensol Liq) 5 mg PO Q6H [facility] Last Admin: 08/18/18 09:22 Dose: 5 mg Pharmacy Profile Note (Vancomycin Consult Pharmacy) 1 each OTHER UNSCH PRN PRN Reason: Pharmacy to dose Sodium Chloride (Ns Flush) 2 ml IV.FLUSH BID [facility] Last Admin: 08/18/18 08:01 Dose: 2 ml Sodium Chloride (Ns Flush) 2 ml IV.FLUSH PRN PRN PRN Reason: FLUSH AFTER USING IV ACCESS Sterile Water (Free Water) 200 ml G-TUBE Q8HR [facility] Last Admin: 08/18/18 05:07 Dose: Not Given Thiamine HCl (Vitamin B1) 100 mg PO BID [facility] Last Admin: 08/18/18 08:00 Dose: 100 mg Valproic Acid (Depakene) 250 mg PO BID [facility] Last Admin: 08/18/18 08:07 Dose: 250 mg <Julienne Michael - Last Filed: 08/18/18 12:06> Active Medications: Active Medications Acetaminophen (Tylenol) 650 mg PO Q4H PRN PRN Reason: temp > 100F Last Admin: 08/17/18 00:33 Dose: 650 mg Albuterol (Duoneb Neb (Manuela)) 1 ampul NEB Q4HR NEB [facility] Last Admin: 08/18/18 09:00 Dose: 1 ampul Albuterol (Albuterol Neb (Prn)) 2.5 mg NEB Q2HR NEB PRN PRN Reason: DYSPNEA Amlodipine Besylate (Norvasc) 5 mg PO DAILY [facility] Last Admin: 08/18/18 09:22 Dose: 5 mg Artificial Tears (Tears Naturale Opth Drops) 1 drop EACH EYE Q8H [facility] Last Admin: 08/18/18 08:01 Dose: 1 drop Aspirin (Aspirin Supp) 300 mg RECTAL DAILY [facility] Last Admin: 08/18/18 08:01 Dose: Not Given Carvedilol (Coreg) 12.5 mg PO BID [facility] Chlordiazepoxide (Librium) 50 mg PO BID [facility] Last Admin: 08/18/18 08:00 Dose: 50 mg Chlorhexidine Gluconate (Peridex 0.12% Oral Kit) 15 ml OROPHARYNG BID@0800, 2000 [facility] Last Admin: 08/18/18 08:57 Dose: 15 ml Dextrose (D50w Vial) 50 ml IV.PUSH UNSCH PRN PRN Reason: PER HYPOGLYCEMIA PROTOCOL Diphenhydramine HCl (Benadryl Inj) 25 mg IV.PUSH Q6H [facility] Stop: 08/21/18 08:59 Last Admin: 08/18/18 09:27 Dose: 25 mg Famotidine (Pepcid Pf Inj) 20 mg IV.PUSH Q12HR [facility] Flumazenil (Romazecon Inj) 0.2 mg IV.PUSH Q1M PRN PRN Reason: OVERSEDATION Folic Acid (Folic Acid) 1 mg PO DAILY [facility] Last Admin: 08/18/18 08:00 Dose: 1 mg Furosemide (Lasix Inj) 40 mg IV.PUSH BID@0900,1800 [facility] Last Admin: 08/18/18 09:27 Dose: 40 mg Glucagon (Glucagon Inj) 1 mg OTHER UNSCH PRN PRN Reason: for Hypoglycemia Protocol Heparin Sodium (Porcine) (Heparin Inj) 5,000 units SQ Q8H [facility] Last Admin: 08/18/18 11:12 Dose: Not Given Hydralazine HCl (Apresoline Inj) 10 mg IV.PUSH Q1H PRN PRN Reason: SBP >165 Last Admin: 08/18/18 00:53 Dose: 10 mg Hydralazine HCl (Apresoline) 25 mg PO TID [facility] Last Admin: 08/18/18 12:50 Dose: 25 mg Nicardipine HCl 25 mg/ Sodium (Chloride) 250 mls @ 50 mls/hr IV.CONT TITRATE PRN; Protocol PRN Reason: Per Protocol Last Admin: 08/18/18 11:13 Dose: 10 mg/hr, 100 mls/hr Propofol (Diprivan 1000 Mg/100 Ml Inj) 1,000 mg in 100 mls @ 2.634 mls/hr IV.CONT TITRATE PRN; Protocol PRN Reason: Per Protocol Last Admin: 08/18/18 11:19 Dose: 50 mcg/kg/min, 26.34 mls/hr Multivitamins 10 ml/ Thiamine HCl 100 mg/ Folic Acid 1 mg/Dextrose/Sodium Chloride 511.2 mls @ 127.8 mls/hr IV.SIG DAILY [facility] Last Admin: 08/18/18 11:11 Dose: 128 mls/hr Fentanyl (Fentanyl 10 Mcg/Ml Premix Drip) 2,500 mcg in 250 mls @ 5 mls/hr IV.SIG TITRATE PRN; Protocol PRN Reason: Per Protocol Last Admin: 08/18/18 07:59 Dose: 250 mcg/hr, 25 mls/hr Dexmedetomidine HCl 200 mcg/ (Sodium Chloride) 50 mls @ 5.13 mls/hr IV.CONT TITRATE PRN; Protocol PRN Reason: Per Protocol Last Titration: 08/17/18 10:01 Dose: Infused Midazolam HCl (Versed Inj) 100 mg in 100 mls @ 2 mls/hr IV.CONT TITRATE PRN; Protocol PRN Reason: See protocol Last Admin: 08/18/18 03:33 Dose: 10 mg/hr, 10 mls/hr Aztreonam 2 gm/ Sodium (Chloride) 100 mls @ 200 mls/hr IV.SIG Q8H [facility] Last Infusion: 08/18/18 11:10 Dose: Infused Vancomycin HCl 1,500 mg/ (Sodium Chloride) 515 mls @ 250 mls/hr IV.SIG Q24H [facility] Last Admin: 08/18/18 12:49 Dose: 250 mls/hr Cefazolin Sodium 1 gm/ Sodium (Chloride) 100 mls @ 100 mls/hr IV.SIG ONCE ONE Stop: 08/20/18 09:59 Labetalol HCl (Trandate Inj) 10 mg IV.PUSH Q1H PRN PRN Reason: Sbp>160, Dbp>90 HR > 65 Last Admin: 08/18/18 01:36 Dose: 10 mg Lactulose (Lactulose Liq) 30 ml PO BID [facility] Last Admin: 08/18/18 08:01 Dose: Not Given Miscellaneous Information ([facility] Ordered Lab Info) 0 each OTHER ONCE ONE Stop: 08/21/18 11:46 Miscellaneous Medication () 1 each OROPHARYNG 0000,0400,1200,1600 [facility] Last Admin: 08/18/18 11:20 Dose: 1 each Oxycodone HCl (Roxicodone Intensol Liq) 5 mg PO Q6H [facility] Last Admin: 08/18/18 09:22 Dose: 5 mg Pharmacy Profile Note (Vancomycin Consult Pharmacy) 1 each OTHER UNSCH PRN PRN Reason: Pharmacy to dose Sodium Chloride (Ns Flush) 2 ml IV.FLUSH BID [facility] Last Admin: 08/18/18 08:01 Dose: 2 ml Sodium Chloride (Ns Flush) 2 ml IV.FLUSH PRN PRN PRN Reason: FLUSH AFTER USING IV ACCESS Sterile Water (Free Water) 200 ml G-TUBE Q8HR [facility] Last Admin: 08/18/18 05:07 Dose: Not Given Thiamine HCl (Vitamin B1) 100 mg PO BID [facility] Last Admin: 08/18/18 08:00 Dose: 100 mg Valproic Acid (Depakene) 250 mg PO BID [facility] Last Admin: 08/18/18 08:07 Dose: 250 mg <Jaxon Jensen A - Last Filed: 08/18/18 13:13> Allergies Allergy/AdvReac Type Severity Reaction Status Date / Time No Known Allergies Allergy Verified 08/09/18 09:20 Home Medications Medication Instructions Recorded Confirmed Type Unable to Obtain Home Meds 08/09/18 08/09/18 History Exam Vital signs: Vital Signs 08/17/18 12:30 08/17/18 13:00 08/17/18 13:30 Temperature Pulse Rate 74 69 68 Respiratory Rate 19 17 19 Blood Pressure 166/71 H 171/76 H 177/80 H Pulse Oximetry 99 100 100 08/17/18 14:00 08/17/18 14:30 08/17/18 15:00 Temperature Pulse Rate 68 84 89 Respiratory Rate 20 18 22 Blood Pressure 190/88 H 180/81 H 193/86 H Pulse Oximetry 100 98 94 L 08/17/18 15:30 08/17/18 15:35 08/17/18 16:00 Temperature Pulse Rate 75 84 79 Respiratory Rate 19 24 22 Blood Pressure 133/60 167/76 H Pulse Oximetry 98 99 97 08/17/18 16:30 08/17/18 17:00 08/17/18 17:29 Temperature Pulse Rate 74 70 85 Respiratory Rate 19 18 30 H Blood Pressure 190/77 H 208/84 H 217/91 H Pulse Oximetry 98 99 96 08/17/18 17:30 08/17/18 18:00 08/17/18 18:05 Temperature Pulse Rate 83 88 79 Respiratory Rate 17 17 16 Blood Pressure 207/86 H 197/83 H Pulse Oximetry 95 93 L 95 08/17/18 18:30 08/17/18 19:00 08/17/18 19:30 Temperature 100.1 F H Pulse Rate 86 72 80 Respiratory Rate 21 18 20 Blood Pressure 197/91 H 135/63 153/78 H Pulse Oximetry 96 98 97 08/17/18 20:00 08/17/18 20:30 08/17/18 21:00 Temperature Pulse Rate 72 72 75 Respiratory Rate 17 18 17 Blood Pressure 143/65 H 138/63 133/78 Pulse Oximetry 96 97 97 08/17/18 21:20 08/17/18 21:22 08/17/18 21:30 Temperature Pulse Rate 70 70 Respiratory Rate 16 16 18 Blood Pressure 148/69 H Pulse Oximetry 98 98 08/17/18 22:00 08/17/18 22:02 08/17/18 22:10 Temperature Pulse Rate 73 83 85 Respiratory Rate 18 24 21 Blood Pressure 185/80 H 210/88 H 178/84 H Pulse Oximetry 98 97 95 08/17/18 22:30 08/17/18 23:00 08/17/18 23:30 Temperature Pulse Rate 72 71 71 Respiratory Rate 18 18 19 Blood Pressure 179/72 H 180/74 H 189/76 H Pulse Oximetry 98 97 97 08/17/18 23:57 08/18/18 00:00 08/18/18 00:34 Temperature Pulse Rate 72 77 82 Respiratory Rate 18 20 21 Blood Pressure 200/149 H 175/79 H Pulse Oximetry 97 97 08/18/18 00:37 08/18/18 00:47 08/18/18 01:00 Temperature 98.3 F Pulse Rate 82 74 73 Respiratory Rate 19 18 18 Blood Pressure 207/92 H 209/77 H 201/81 H Pulse Oximetry 94 L 97 97 08/18/18 01:30 08/18/18 01:42 08/18/18 02:00 Temperature Pulse Rate 71 70 69 Respiratory Rate 18 19 18 Blood Pressure 181/70 H 176/74 H 171/71 H Pulse Oximetry 98 98 98 08/18/18 02:30 08/18/18 02:46 08/18/18 02:48 Temperature Pulse Rate 68 80 81 Respiratory Rate 19 26 H 23 Blood Pressure 190/85 H 175/79 H 186/80 H Pulse Oximetry 98 96 100 08/18/18 03:00 08/18/18 03:06 08/18/18 03:15 Temperature Pulse Rate 80 75 76 Respiratory Rate 17 18 20 Blood Pressure 205/88 H 203/86 H 197/81 H Pulse Oximetry 95 96 96 08/18/18 03:30 08/18/18 03:45 08/18/18 04:00 Temperature Pulse Rate 80 73 71 Respiratory Rate 18 16 17 Blood Pressure 205/86 H 175/73 H 166/70 H Pulse Oximetry 95 95 94 L 08/18/18 04:15 08/18/18 04:30 08/18/18 04:45 Temperature Pulse Rate 70 69 70 Respiratory Rate 18 17 18 Blood Pressure 144/68 H 150/65 H 147/65 H Pulse Oximetry 94 L 94 L 94 L 08/18/18 04:46 08/18/18 04:49 08/18/18 05:00 Temperature Pulse Rate 69 71 Respiratory Rate 17 17 18 Blood Pressure 157/66 H Pulse Oximetry 94 L 94 L 08/18/18 05:15 08/18/18 05:30 08/18/18 05:45 Temperature Pulse Rate 69 69 72 Respiratory Rate 19 20 19 Blood Pressure 162/67 H 162/67 H 166/68 H Pulse Oximetry 95 95 94 L 08/18/18 06:00 08/18/18 06:15 08/18/18 06:30 Temperature Pulse Rate 75 72 70 Respiratory Rate 19 18 18 Blood Pressure 174/72 H 176/74 H 170/72 H Pulse Oximetry 94 L 95 95 08/18/18 06:45 08/18/18 07:00 08/18/18 07:15 Temperature Pulse Rate 69 76 71 Respiratory Rate 17 22 20 Blood Pressure 164/70 H 168/71 H 162/69 H Pulse Oximetry 95 93 L 93 L 08/18/18 07:30 08/18/18 07:45 08/18/18 08:00 Temperature Pulse Rate 76 67 62 Respiratory Rate 17 17 16 Blood Pressure 178/78 H 167/60 H 149/67 H Pulse Oximetry 100 100 100 08/18/18 08:15 08/18/18 08:30 08/18/18 08:45 Temperature 99.0 F Pulse Rate 60 60 60 Respiratory Rate 16 16 16 Blood Pressure 145/65 H 145/62 H 144/63 H Pulse Oximetry 100 99 99 08/18/18 08:57 08/18/18 09:00 08/18/18 09:15 Temperature Pulse Rate 60 60 Respiratory Rate 16 16 16 Blood Pressure 143/63 H 146/64 H Pulse Oximetry 99 99 08/18/18 09:22 08/18/18 09:30 08/18/18 09:35 Temperature Pulse Rate 60 Respiratory Rate 16 16 Blood Pressure 152/67 H Pulse Oximetry 99 99 08/18/18 09:39 08/18/18 09:45 08/18/18 09:48 Temperature Pulse Rate 61 Respiratory Rate 16 16 16 Blood Pressure 158/70 H Pulse Oximetry 100 08/18/18 10:00 08/18/18 10:15 08/18/18 10:18 Temperature Pulse Rate 62 61 60 Respiratory Rate 16 18 17 Blood Pressure 161/72 H 155/61 H 153/66 H Pulse Oximetry 100 100 100 08/18/18 10:20 08/18/18 10:23 08/18/18 10:25 Temperature Pulse Rate 60 62 63 Respiratory Rate 17 20 20 Blood Pressure 154/65 H 157/67 H 157/67 H Pulse Oximetry 100 100 100 08/18/18 10:28 08/18/18 10:30 08/18/18 10:33 Temperature Pulse Rate 63 68 70 Respiratory Rate 20 20 16 Blood Pressure 158/68 H 170/72 H 168/72 H Pulse Oximetry 100 100 100 08/18/18 10:35 08/18/18 10:38 08/18/18 10:40 Temperature Pulse Rate 67 66 66 Respiratory Rate 21 20 21 Blood Pressure 164/70 H 161/68 H 159/68 H Pulse Oximetry 100 99 99 08/18/18 10:43 08/18/18 10:45 08/18/18 10:48 Temperature Pulse Rate 66 66 65 Respiratory Rate 20 20 20 Blood Pressure 160/68 H 162/69 H 164/70 H Pulse Oximetry 99 98 98 08/18/18 11:00 08/18/18 11:15 Temperature Pulse Rate 64 63 Respiratory Rate 20 20 Blood Pressure 160/68 H 162/59 H Pulse Oximetry 96 96 Intake & Output 08/17/18 08/18/18 08/18/18 18:59 06:59 18:59 Intake Total 6.2 / 2046.2 1236 / 1236 950 / 950 Output Total 2049 Balance 2026.2 / 6.2 -814 / -814 950 / 950 Weight 103.6 kg Intake: IV 1556.2 / 1556.2 900 / 900 950 / 950 Precedex Inj 200 MCG In NS Inj 50 / 50 48 ML @ 0.2 MCG/KG/HR 5.13 mls/ hr IV.CONT TITRATE PRN Rx#: [id number] Versed Inj 100 mg In 100 ml @ 2 100 / 100 100 / 100 MG/HR 2 mls/hr IV.CONT TITRATE PRN Rx#:[id number] Diprivan 1000 mg/100 ml Inj 1, 30 / 30 100 / 100 000 mg In 100 ml @ 5 MCG/KG/MIN 2.634 mls/hr IV.CONT TITRATE PRN Rx#:[id number] Cardene Inj 25 MG In NS Inj 240 250 / 250 500 / 500 ML @ 5 MG/HR 50 mls/hr IV.CONT TITRATE PRN Rx#:[id number] Azactam Inj 2 GM In NS Inj 100 100 / 100 ML @ 200 mls/hr IV.SIG Q8H MANUELA Rx#:[id number] MVI-12 Inj 10 ML Thiamine Inj 511.2 / 511.2 100 MG Folvite Inj 1 MG In D5W- 1/2 NS Inj 500 ML @ 127.8 mls/ hr IV.SIG DAILY MANUELA Rx#: [id number] Zosyn 4.5 GM Premix 4.5 gm In 100 / 100 300 / 300 100 ml @ 200 mls/hr IV.SIG Q6H MANUELA Rx#:[id number] Vancomycin Inj 1,500 MG In NS 515 / 515 Inj 500 ML @ 257.5 mls/hr IV. SIG ONCE ONE Rx#:[id number] fentaNYL 10 mcg/mL Premix Drip 250 / 250 250 / 250 250 / 250 2,500 mcg In 250 ml @ 50 MCG/HR 5 mls/hr IV.SIG TITRATE PRN Rx #:[id number] Tube Feeding 290 / 290 136 / 136 Tube Irrigant 200 / 200 200 / 200 Output: Stool Urine Amount (Catheter) 2049 Indwelling Urethral Catheter 2049 Other: Date of Last Bowel Movement 08/15/18 08/18/18 08/18/18 # Incontinent Bowel Movements 3 - Constitutional average body habitus Comments: Acutely ill patient Tracheostomy-mechanically ventilated - Routine HEENT Exam Eye: Absent: conjunctival icterus - Routine Neck Exam Comments: Tracheostomy placed - Routine Respiratory Exam Present: patient mechanically ventilated, CTA bilaterally. Absent: wheezes, crackles - Routine Cardiovascular Exam Present: RRR, S1, S2 - Routine Abdominal Exam Present: soft, normoactive bowel sounds. Absent: tenderness, distended, guarding, firm - Routine Extremities Exam Present: pulses intact. Absent: cyanosis, clubbing, edema - Routine Skin Exam Present: dry, warm. Absent: jaundice <Michael,Julienne - Last Filed: 08/18/18 12:06> Vital signs: Vital Signs 08/17/18 13:30 08/17/18 14:00 08/17/18 14:30 Temperature Pulse Rate 68 68 84 Respiratory Rate 19 20 18 Blood Pressure 177/80 H 190/88 H 180/81 H Pulse Oximetry 100 100 98 08/17/18 15:00 08/17/18 15:30 08/17/18 15:35 Temperature Pulse Rate 89 75 84 Respiratory Rate 22 19 24 Blood Pressure 193/86 H 133/60 Pulse Oximetry 94 L 98 99 08/17/18 16:00 08/17/18 16:30 08/17/18 17:00 Temperature Pulse Rate 79 74 70 Respiratory Rate 22 19 18 Blood Pressure 167/76 H 190/77 H 208/84 H Pulse Oximetry 97 98 99 08/17/18 17:29 08/17/18 17:30 08/17/18 18:00 Temperature Pulse Rate 85 83 88 Respiratory Rate 30 H 17 17 Blood Pressure 217/91 H 207/86 H Pulse Oximetry 96 95 93 L 08/17/18 18:05 08/17/18 18:30 08/17/18 19:00 Temperature 100.1 F H Pulse Rate 79 86 72 Respiratory Rate 16 21 18 Blood Pressure 197/83 H 197/91 H 135/63 Pulse Oximetry 95 96 98 08/17/18 19:30 08/17/18 20:00 08/17/18 20:30 Temperature Pulse Rate 80 72 72 Respiratory Rate 20 17 18 Blood Pressure 153/78 H 143/65 H 138/63 Pulse Oximetry 97 96 97 08/17/18 21:00 08/17/18 21:20 08/17/18 21:22 Temperature Pulse Rate 75 70 Respiratory Rate 17 16 16 Blood Pressure 133/78 Pulse Oximetry 97 98 08/17/18 21:30 08/17/18 22:00 08/17/18 22:02 Temperature Pulse Rate 70 73 83 Respiratory Rate 18 18 24 Blood Pressure 148/69 H 185/80 H 210/88 H Pulse Oximetry 98 98 97 08/17/18 22:10 08/17/18 22:30 08/17/18 23:00 Temperature Pulse Rate 85 72 71 Respiratory Rate 21 18 18 Blood Pressure 178/84 H 179/72 H 180/74 H Pulse Oximetry 95 98 97 08/17/18 23:30 08/17/18 23:57 08/18/18 00:00 Temperature Pulse Rate 71 72 77 Respiratory Rate 19 18 20 Blood Pressure 189/76 H 200/149 H 175/79 H Pulse Oximetry 97 97 97 08/18/18 00:34 08/18/18 00:37 08/18/18 00:47 Temperature 98.3 F Pulse Rate 82 82 74 Respiratory Rate 21 19 18 Blood Pressure 207/92 H 209/77 H Pulse Oximetry 94 L 97 08/18/18 01:00 08/18/18 01:30 08/18/18 01:42 Temperature Pulse Rate 73 71 70 Respiratory Rate 18 18 19 Blood Pressure 201/81 H 181/70 H 176/74 H Pulse Oximetry 97 98 98 08/18/18 02:00 08/18/18 02:30 08/18/18 02:46 Temperature Pulse Rate 69 68 80 Respiratory Rate 18 19 26 H Blood Pressure 171/71 H 190/85 H 175/79 H Pulse Oximetry 98 98 96 08/18/18 02:48 08/18/18 03:00 08/18/18 03:06 Temperature Pulse Rate 81 80 75 Respiratory Rate 23 17 18 Blood Pressure 186/80 H 205/88 H 203/86 H Pulse Oximetry 100 95 96 08/18/18 03:15 08/18/18 03:30 08/18/18 03:45 Temperature Pulse Rate 76 80 73 Respiratory Rate 20 18 16 Blood Pressure 197/81 H 205/86 H 175/73 H Pulse Oximetry 96 95 95 08/18/18 04:00 08/18/18 04:15 08/18/18 04:30 Temperature Pulse Rate 71 70 69 Respiratory Rate 17 18 17 Blood Pressure 166/70 H 144/68 H 150/65 H Pulse Oximetry 94 L 94 L 94 L 08/18/18 04:45 08/18/18 04:46 08/18/18 04:49 Temperature Pulse Rate 70 69 Respiratory Rate 18 17 17 Blood Pressure 147/65 H Pulse Oximetry 94 L 94 L 08/18/18 05:00 08/18/18 05:15 08/18/18 05:30 Temperature Pulse Rate 71 69 69 Respiratory Rate 18 19 20 Blood Pressure 157/66 H 162/67 H 162/67 H Pulse Oximetry 94 L 95 95 08/18/18 05:45 08/18/18 06:00 08/18/18 06:15 Temperature Pulse Rate 72 75 72 Respiratory Rate 19 19 18 Blood Pressure 166/68 H 174/72 H 176/74 H Pulse Oximetry 94 L 94 L 95 08/18/18 06:30 08/18/18 06:45 08/18/18 07:00 Temperature Pulse Rate 70 69 76 Respiratory Rate 18 17 22 Blood Pressure 170/72 H 164/70 H 168/71 H Pulse Oximetry 95 95 93 L 08/18/18 07:15 08/18/18 07:30 08/18/18 07:45 Temperature Pulse Rate 71 76 67 Respiratory Rate 20 17 17 Blood Pressure 162/69 H 178/78 H 167/60 H Pulse Oximetry 93 L 100 100 08/18/18 08:00 08/18/18 08:15 08/18/18 08:30 Temperature 99.0 F Pulse Rate 62 60 60 Respiratory Rate 16 16 16 Blood Pressure 149/67 H 145/65 H 145/62 H Pulse Oximetry 100 100 99 08/18/18 08:45 08/18/18 08:57 08/18/18 09:00 Temperature Pulse Rate 60 60 Respiratory Rate 16 16 16 Blood Pressure 144/63 H 143/63 H Pulse Oximetry 99 99 08/18/18 09:15 08/18/18 09:22 08/18/18 09:30 Temperature Pulse Rate 60 60 Respiratory Rate 16 16 16 Blood Pressure 146/64 H 152/67 H Pulse Oximetry 99 99 08/18/18 09:35 08/18/18 09:39 08/18/18 09:45 Temperature Pulse Rate 61 Respiratory Rate 16 16 Blood Pressure 158/70 H Pulse Oximetry 99 100 08/18/18 09:48 08/18/18 10:00 08/18/18 10:15 Temperature Pulse Rate 62 61 Respiratory Rate 16 16 18 Blood Pressure 161/72 H 155/61 H Pulse Oximetry 100 100 08/18/18 10:18 08/18/18 10:20 08/18/18 10:23 Temperature Pulse Rate 60 60 62 Respiratory Rate 17 17 20 Blood Pressure 153/66 H 154/65 H 157/67 H Pulse Oximetry 100 100 100 08/18/18 10:25 08/18/18 10:28 08/18/18 10:30 Temperature Pulse Rate 63 63 68 Respiratory Rate 20 20 20 Blood Pressure 157/67 H 158/68 H 170/72 H Pulse Oximetry 100 100 100 08/18/18 10:33 08/18/18 10:35 08/18/18 10:38 Temperature Pulse Rate 70 67 66 Respiratory Rate 16 21 20 Blood Pressure 168/72 H 164/70 H 161/68 H Pulse Oximetry 100 100 99 08/18/18 10:40 08/18/18 10:43 08/18/18 10:45 Temperature Pulse Rate 66 66 66 Respiratory Rate 21 20 20 Blood Pressure 159/68 H 160/68 H 162/69 H Pulse Oximetry 99 99 98 08/18/18 10:48 08/18/18 11:00 08/18/18 11:15 Temperature Pulse Rate 65 64 63 Respiratory Rate 20 20 20 Blood Pressure 164/70 H 160/68 H 162/59 H Pulse Oximetry 98 96 96 08/18/18 11:30 08/18/18 11:45 08/18/18 12:00 Temperature 98.6 F Pulse Rate 63 62 61 Respiratory Rate 20 20 20 Blood Pressure 162/70 H 165/71 H 167/72 H Pulse Oximetry 96 97 97 08/18/18 12:15 08/18/18 12:22 08/18/18 12:57 Temperature Pulse Rate 61 60 Respiratory Rate 20 20 20 Blood Pressure 169/72 H Pulse Oximetry 98 08/18/18 12:58 Temperature Pulse Rate Respiratory Rate 20 Blood Pressure Pulse Oximetry 97 Intake & Output 08/17/18 08/18/1808/18/18 18:59 06:59 18:59 Intake Total 2046.2 / 2045.2 1236 / 1236 950 / 950 Output Total 2049 Balance 2026.2 / 6.2 -814 / -814 950 / 950 Weight 103.6 kg Intake: IV 1556.2 / 1556.2 900 / 900 950 / 950 Precedex Inj 200 MCG In NS Inj 50 / 50 48 ML @ 0.2 MCG/KG/HR 5.13 mls/ hr IV.CONT TITRATE PRN Rx#: [id number] Versed Inj 100 mg In 100 ml @ 2 100 / 100 100 / 100 MG/HR 2 mls/hr IV.CONT TITRATE PRN Rx#:[id number] Diprivan 1000 mg/100 ml Inj 1, 30 / 30 100 / 100 000 mg In 100 ml @ 5 MCG/KG/MIN 2.634 mls/hr IV.CONT TITRATE PRN Rx#:[id number] Cardene Inj 25 MG In NS Inj 240 250 / 250 500 / 500 ML @ 5 MG/HR 50 mls/hr IV.CONT TITRATE PRN Rx#:[id number] Azactam Inj 2 GM In NS Inj 100 100 / 100 ML @ 200 mls/hr IV.SIG Q8H MANUELA Rx#:[id number] MVI-12 Inj 10 ML Thiamine Inj 511.2 / 511.2 100 MG Folvite Inj 1 MG In D5W- 1/2 NS Inj 500 ML @ 127.8 mls/ hr IV.SIG DAILY MANUELA Rx#: [id number] Zosyn 4.5 GM Premix 4.5 gm In 100 / 100 300 / 300 100 ml @ 200 mls/hr IV.SIG Q6H MANUELA Rx#:[id number] Vancomycin Inj 1,500 MG In NS 515 / 515 Inj 500 ML @ 257.5 mls/hr IV. SIG ONCE ONE Rx#:[id number] fentaNYL 10 mcg/mL Premix Drip 250 / 250 250 / 250 250 / 250 2,500 mcg In 250 ml @ 50 MCG/HR 5 mls/hr IV.SIG TITRATE PRN Rx #:[id number] Tube Feeding 290 / 290 136 / 136 Tube Irrigant 200 / 200 200 / 200 Output: Stool / 20 Urine Amount (Catheter) 2049 Indwelling Urethral Catheter 2049 Other: Date of Last Bowel Movement 08/15/18 08/18/18 08/18/18 # Incontinent Bowel Movements 3 <Jaxon Jensen A - Last Filed: 08/18/18 13:13> Results - Labs CBC & Chem 7: 08/18/18 03:27 08/18/18 03:27 Labs: Laboratory Results - last 24 hr 08/15/18 08/17/18 08/18/18 11:39 11:20 03:27 WBC RBC Hgb Hct MCV MCH MCHC RDW Plt Count MPV Prelim Diff (Auto) Neut % (Auto) Lymph % (Auto) Blount % (Auto) Eos % (Auto) Baso % (Auto) Neut # (Auto) Lymph # (Auto) Blount # (Auto) Eos # (Auto) Baso # (Auto) WBC Differential Diff Scan Differential Comment Platelet Estimate Platelet Morphology PT INR APTT Sodium 147 H Potassium 3.7 Chloride 113 H Carbon Dioxide 26.5 Anion Gap 8 BUN 14 Creatinine 1.05 Estimated GFR 73 L Random Glucose 89 Calcium 8.4 L Phosphorus 3.9 Magnesium 2.3 Total Bilirubin 0.4 AST 32 ALT 41 Alkaline Phosphatase 128 H Total Protein 5.7 L Albumin 2.1 L CSF VDRL Non-reactive Stl C.difficile DNA Amp Negative St C. diff Tox Epid 027 Negative Random Vancomycin 10.2 08/18/18 08/18/18 03:27 05:53 WBC 8.8 D RBC 3.11 L Hgb 9.6 L Hct 29.6 L MCV 95.1 MCH 30.7 MCHC 32.2 RDW 14.1 Plt Count 332 MPV 8.6 Prelim Diff (Auto) Slide review pending Neut % (Auto) 72.3 H Lymph % (Auto) 16.6 Blount % (Auto) 8.3 H Eos % (Auto) 2.0 Baso % (Auto) 0.8 Neut # (Auto) 6.4 Lymph # (Auto) 1.5 Blount # (Auto) 0.7 Eos # (Auto) 0.2 Baso # (Auto) 0.1 WBC Differential . Diff Scan Auto diff confirmed Differential Comment . Platelet Estimate Normal Platelet Morphology Normal PT 9.6 L INR 0.9 APTT 21.1 L Sodium Potassium Chloride Carbon Dioxide Anion Gap BUN Creatinine Estimated GFR Random Glucose Calcium Phosphorus Magnesium Total Bilirubin AST ALT Alkaline Phosphatase Total Protein Albumin CSF VDRL Stl C.difficile DNA Amp St C. diff Tox Epid 027 Random Vancomycin - Imaging Impressions Venous Doppler Study 08/17/18 00:00 CONCLUSION: 1. Occlusive thrombus of the cephalic veins bilaterally. No other venous thrombosis. Chest X-Ray 08/18/18 10:46 CONCLUSION: Trach tube in good position. There is no pneumothorax <Julienne Michael - Last Filed: 08/18/18 12:06> - Labs CBC & Chem 7: 08/18/18 03:27 08/18/18 03:27 Labs: Laboratory Results - last 24 hr 08/15/18 08/17/18 08/18/18 11:39 11:20 03:27 WBC RBC Hgb Hct MCV MCH MCHC RDW Plt Count MPV Prelim Diff (Auto) Neut % (Auto) Lymph % (Auto) Blount % (Auto) Eos % (Auto) Baso % (Auto) Neut # (Auto) Lymph # (Auto) Blount # (Auto) Eos # (Auto) Baso # (Auto) WBC Differential Diff Scan Differential Comment Platelet Estimate Platelet Morphology PT INR APTT Sodium 147 H Potassium 3.7 Chloride 113 H Carbon Dioxide 26.5 Anion Gap 8 BUN 14 Creatinine 1.05 Estimated GFR 73 L Random Glucose 89 Calcium 8.4 L Phosphorus 3.9 Magnesium 2.3 Total Bilirubin 0.4 AST 32 ALT 41 Alkaline Phosphatase 128 H Total Protein 5.7 L Albumin 2.1 L CSF VDRL Non-reactive Stl C.difficile DNA Amp Negative St C. diff Tox Epid 027 Negative Random Vancomycin 10.2 08/18/18 08/18/18 03:27 05:53 WBC 8.8 D RBC 3.11 L Hgb 9.6 L Hct 29.6 L MCV 95.1 MCH 30.7 MCHC 32.2 RDW 14.1 Plt Count 332 MPV 8.6 Prelim Diff (Auto) Slide review pending Neut % (Auto) 72.3 H Lymph % (Auto) 16.6 Blount % (Auto) 8.3 H Eos % (Auto) 2.0 Baso % (Auto) 0.8 Neut # (Auto) 6.4 Lymph # (Auto) 1.5 Blount # (Auto) 0.7 Eos # (Auto) 0.2 Baso # (Auto) 0.1 WBC Differential . Diff Scan Auto diff confirmed Differential Comment . Platelet Estimate Normal Platelet Morphology Normal PT 9.6 L INR 0.9 APTT 21.1 L Sodium Potassium Chloride Carbon Dioxide Anion Gap BUN Creatinine Estimated GFR Random Glucose Calcium Phosphorus Magnesium Total Bilirubin AST ALT Alkaline Phosphatase Total Protein Albumin CSF VDRL Stl C.difficile DNA Amp St C. diff Tox Epid 027 Random Vancomycin - Imaging Impressions Venous Doppler Study 08/17/18 00:00 CONCLUSION: 1. Occlusive thrombus of the cephalic veins bilaterally. No other venous thrombosis. Chest X-Ray 08/18/18 10:46 CONCLUSION: Trach tube in good position. There is no pneumothorax <Jaxon Jensen - Last Filed: 08/18/18 13:13> Assessment and Plan (1) Encounter for PEG (percutaneous endoscopic gastrostomy) Status: Acute Code(s): Z43.1 - Encounter for attention to gastrostomy - Plan This patient is a 58-year-old male with past medical history significant for EtOH abuse and hypertension. Surgical history unknown. Patient presented to [facility] emergency room on 08/09/2018 by EMS. Patient was found on the floor of a friend's garage. Upon arrival, head CT was negative for bleed however there will was a noted C6 fracture. Patient presently wearing hard cervical collar. Our service has been consulted to evaluate patient for PEG tube placement. 08/18/2018 tracheostomy placement completed. Patient currently mechanically ventilated, FiO2 70%. Fentanyl, Versed and nicardipine drip infusing as well as propofol. Patient has Dobbhoff in place as nasogastric tube. PEG tube placement Patient admitted on 08/09/2018, found on floor friend's garage. History of EtOH use and hypertension Tracheostomy placed 08/18/2018-mechanically ventilated FiO2 70% Propofol, fentanyl and Versed for ventilator synchrony and sedation -WBC 8.8 hemoglobin 9.6 hematocrit 29.6 platelet count 332 INR 0.9 -Bilirubin 0.4 AST 32 ALT 41 alk phos 128 08/09/[address] No acute intracranial abnormality is seen. Mild widening of the cortical sulci which could suggest some atrophy. 08/09/[address] Fracturing through anterior flowing spurs at the anterior C6 level with the fracture extending into the anterior inferior left lateral aspect of the C6 vertebral body. Empty displacement is not seen. No other possible fractures are seen. 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 Degenerative change Plan Tube feedings as per dietary N.p.o. after midnight on 08/20/2017 for PEG tube placement Obtain consent for PEG tube placement Ancef 1 g IV on-call for procedure Supportive care Further recommendations to follow This patient has been seen by myself and Dr. Jensen and this note is written on his behalf - Attending Attestation Dr. Jensen <Julienne Michael - Last Filed: 08/18/18 12:06> (1) Encounter for PEG (percutaneous endoscopic gastrostomy) Status: Acute Code(s): Z43.1 - Encounter for attention to gastrostomy - Attending Attestation Seen and examined, plan as above.\ Will proceed with PEG placement Saturday Thank you for the consult <Jaxon Jensen - Last Filed: 08/18/18 13:13>
[2018-08-18] MEDS: Vancomycin Inj 1,500 MG in Sodium Chlor 0.9% Inj 500 ML IV.SIG SCH (12:49)
--- NOTE | 2018-08-18 14:22 | P.DIET ---
Nutritional Evaluation Type of nutrition evaluation: follow-up Nutrition consult regarding: Tube Feeding Objective - Diagnosis AMS, C6 Vertebral fx, alcohol abuse - Objective % IBW: 111 Body Weight Used for Calculations: Actual (89.6 kg ) Energy Needs - Lower Range (kCal/kg): 22 Energy Needs - Upper Range (kCal/kg): 27 Lower Limit kCal/kg (kCals): 1,971 Upper Limit kCal/kg (kCals): 2,419 Lower Limit Protein Factor (Grams per Kg): 1.0 Upper Limit Protein Factor (Grams per Kg): 1.2 Lower Protein Needs (Protein): 90 Upper Protein Needs (Protein): 108 Dietitian Reviewed in Medical Record: Curent medications, Intake & Output, Labs , Medical history, Tube feeding Diet Order: NPO Objective Comments: PMH includes: Alcohol Abuse, HTN Labs include: Creatinine 1.05, Glucose 87 Meds include: Coreg, Pepcid, IV Folic Acid, MV, Thiamine, Haldol, Seroquel, Ativan, Lactulose, Propofol Free Water Flushes 200ml Q 6hr Assessment Assessment: Pt. with multiple failed extubations, scheduled for tracheostomy placement. Wt. with significant wt. gain due to +I+Os, +UOP and +BM. Currently receiving propofol at 26.34mls/hr, this will provide extra kcals. Recommend current TFing of Nepro at 50mls/hr because it offers a lower fluid volume vs. alternative product. Continue to monitor TFing tolerance, labs and wt. Recommendations: 1. Recommend current TFing of Nepro at 50mls/hr because it offers a lower fluid volume vs. alternative product. 2. Continue to monitor TFing tolerance, labs and wt. Dietitian to Monitor: Lab values, Electrolytes, Renal labs, Glucose level, Intake & Output, Tube feeding tolerance, Weight change, Medical course
[2018-08-18] MEDS: Clevidipine Inj 25 MG/50 ML VIAL IV.CONT PRN ×3 (17:22→23:57)
[2018-08-18] MEDS: Carvedilol 12.5 MG Tablet PO SCH (20:21)
[2018-08-19] MEDS: Artificial Tears Opth Drops 15 ML Bottle EACH EYE SCH ×3 (00:02→16:41)
[2018-08-19] MEDS: Heparin - SQ 10,000 UNITS/ML Vial SQ SCH ×3 (03:01→20:16)
[2018-08-19] MEDS: Clevidipine Inj 25 MG/50 ML VIAL IV.CONT PRN ×13 (03:02→23:40)
[2018-08-19] MEDS: Oral Hygiene Kit OROPHARYNG SCH ×4 (03:03→16:36)
[2018-08-19] MEDS: fentaNYL 10 mcg/mL Premix Drip 2,500 MCG/250 ML BAG IV.SIG PRN ×2 (03:54→15:31)
[2018-08-19 06:22] LABS: Hematocrit 31.5 % (39.0-51.0); Hemoglobin 10.5 gm/dL (13.0-17.0); Mean Corpuscular HGB Conc 33.4 % (32.0-36.0); Mean Corpuscular Hemoglobin 31.8 pg (27.0-34.0); Mean Corpuscular Volume 95.4 fL (80.0-100.0); Mean Platelet Volume 8.4 fL (7.0-11.0); Platelet Count 333 th/mm3 (150-450); Red Blood Count 3.31 mil/mm3 (4.50-5.90); Red Cell Distribution Width 14.1 % (11.6-17.2); White Blood Count 9.3 th/mm3 (4.0-11.0)
[2018-08-19 06:37] LABS: Albumin 2.2 g/dL (3.4-5.0); Anion Gap 9 meq/L (5-15); Aspartate Aminotransferase 22 U/L (15-37); Blood Urea Nitrogen 19 mg/dL (7-18); Calcium 8.6 mg/dL (8.5-10.1); Carbon Dioxide 27.3 meq/L (21.0-32.0); Chloride 110 meq/L (98-107); Glomerular Filtration Rate 74 mL/min (>89); Glucose,Random 130 mg/dL (74-106); Magnesium 2.2 mg/dL (1.5-2.5); Potassium 3.8 meq/L (3.5-5.1); Sodium 146 meq/L (136-145)
[2018-08-19 06:38] LABS: Alanine Aminotransferase 34 U/L (12-78); Phosphorus 4.5 mg/dL (2.5-4.9)
[2018-08-19 06:41] LABS: Alkaline Phosphatase 124 U/L (45-117)
[2018-08-19 09:23] LABS: Lymphocytes 15 % (9-44); Monocytes 9 % (0-8); Myelocytes 1 % (0-0); Platelet Estimate Normal (Normal); Platelet Morphology Normal (Normal)
[2018-08-19] MEDS: chlordiazePOXIDE 25 MG Capsule PO SCH ×2 (09:37→20:15)
[2018-08-19] MEDS: Folic Acid 1 MG Tablet PO SCH (09:44)
[2018-08-19] MEDS: hydrALAZINE 25 MG Tablet PO SCH ×3 (09:45→17:12)
[2018-08-19] MEDS: Carvedilol 12.5 MG Tablet PO SCH ×2 (09:45→20:15)
[2018-08-19] MEDS: amLODIPine 5 MG Tablet PO SCH (09:45)
[2018-08-19] MEDS: Aztreonam Inj 2 GM in Sodium Chloride 0.9% Inj 100 ML IV.SIG SCH ×4 (09:46→16:38)
[2018-08-19] MEDS: Famotidine PF Inj 20 MG/2 ML Vial IV.PUSH SCH ×2 (09:47→20:15)
[2018-08-19] MEDS: Chlorhexidine 0.12% Oral Kit 15 ML UDC OROPHARYNG SCH ×2 (09:47→20:16)
[2018-08-19] MEDS: Aspirin 300 MG Supp RECTAL SCH (09:47)
--- NOTE | 2018-08-19 10:18 | P.PNPL ---
Subjective Interval history: Patient s/p trach eyesterday. Sdeated with Versed and Fentanyl infusion. On CPAP with PS 12, PEEP:5 and FIO2 35%. Afebrile. Physical Exam Vital signs: Vital Signs 08/18/18 10:15 08/18/18 10:18 08/18/18 10:20 Temperature Pulse Rate 61 60 60 Respiratory Rate 18 17 17 Blood Pressure 155/61 H 153/66 H 154/65 H Pulse Oximetry 98 100 100 08/18/18 10:23 08/18/18 10:25 08/18/18 10:28 Temperature Pulse Rate 62 63 63 Respiratory Rate 20 20 20 Blood Pressure 157/67 H 157/67 H 158/68 H Pulse Oximetry 100 100 100 08/18/18 10:30 08/18/18 10:33 08/18/18 10:35 Temperature Pulse Rate 68 70 67 Respiratory Rate 20 16 21 Blood Pressure 170/72 H 168/72 H 164/70 H Pulse Oximetry 100 100 100 08/18/18 10:38 08/18/18 10:40 08/18/18 10:43 Temperature Pulse Rate 66 66 66 Respiratory Rate 20 21 20 Blood Pressure 161/68 H 159/68 H 160/68 H Pulse Oximetry 99 99 99 08/18/18 10:45 08/18/18 10:48 08/18/18 11:00 Temperature Pulse Rate 66 65 64 Respiratory Rate 20 20 20 Blood Pressure 162/69 H 164/70 H 160/68 H Pulse Oximetry 98 98 96 08/18/18 11:15 08/18/18 11:30 08/18/18 11:45 Temperature Pulse Rate 63 63 62 Respiratory Rate 20 20 20 Blood Pressure 162/59 H 162/70 H 165/71 H Pulse Oximetry 96 96 97 08/18/18 12:00 08/18/18 12:15 08/18/18 12:22 Temperature 98.6 F Pulse Rate 61 61 Respiratory Rate 20 20 20 Blood Pressure 167/72 H 169/72 H Pulse Oximetry 97 98 08/18/18 12:30 08/18/18 12:45 08/18/18 12:57 Temperature Pulse Rate 61 61 60 Respiratory Rate 20 20 20 Blood Pressure 170/74 H 168/73 H Pulse Oximetry 98 98 08/18/18 12:58 08/18/18 13:00 08/18/18 13:15 Temperature Pulse Rate 61 62 Respiratory Rate 20 20 20 Blood Pressure 167/73 H 171/75 H Pulse Oximetry 97 96 96 08/18/18 13:30 08/18/18 13:45 08/18/18 14:00 Temperature Pulse Rate 62 62 62 Respiratory Rate 20 20 20 Blood Pressure 173/76 H 175/76 H 173/75 H Pulse Oximetry 97 97 97 08/18/18 14:15 08/18/18 14:30 08/18/18 14:45 Temperature Pulse Rate 62 63 62 Respiratory Rate 20 20 20 Blood Pressure 170/73 H 165/72 H 165/72 H Pulse Oximetry 97 97 97 08/18/18 15:00 08/18/18 15:07 08/18/18 15:15 Temperature Pulse Rate 62 63 Respiratory Rate 20 20 Blood Pressure 162/71 H 153/58 H Pulse Oximetry 97 97 08/18/18 15:30 08/18/18 15:45 08/18/18 16:00 Temperature 98.2 F Pulse Rate 63 62 63 Respiratory Rate 20 Blood Pressure 151/66 H 152/67 H 149/57 H Pulse Oximetry 97 97 97 08/18/18 16:14 08/18/18 16:15 08/18/18 16:30 Temperature Pulse Rate 62 63 Respiratory Rate 20 20 20 Blood Pressure 153/67 H 145/63 H Pulse Oximetry 97 96 08/18/18 16:42 08/18/18 16:45 08/18/18 17:00 Temperature Pulse Rate 62 62 61 Respiratory Rate 16 20 16 Blood Pressure 144/63 H 143/63 H Pulse Oximetry 96 96 95 08/18/18 17:15 08/18/18 17:21 08/18/18 17:30 Temperature Pulse Rate 60 60 60 Respiratory Rate 16 16 16 Blood Pressure 144/63 H 136/60 141/64 H Pulse Oximetry 96 96 96 08/18/18 17:45 08/18/18 18:00 08/18/18 18:15 Temperature Pulse Rate 61 60 61 Respiratory Rate 16 16 16 Blood Pressure 139/62 141/63 H 133/59 L Pulse Oximetry 96 96 96 08/18/18 18:30 08/18/18 18:34 08/18/18 18:38 Temperature Pulse Rate 66 63 Respiratory Rate 28 H 16 16 Blood Pressure 160/58 H 156/65 H Pulse Oximetry 90 L 95 08/18/18 18:45 08/18/18 19:00 08/18/18 19:15 Temperature Pulse Rate 61 60 60 Respiratory Rate 16 16 16 Blood Pressure 152/66 H 154/59 H 155/67 H Pulse Oximetry 96 97 97 08/18/18 19:30 08/18/18 19:45 08/18/18 20:00 Temperature 98.4 F Pulse Rate 60 61 62 Respiratory Rate 16 18 16 Blood Pressure 156/63 H 159/69 H 149/59 H Pulse Oximetry 97 97 97 08/18/18 20:11 08/18/18 20:15 08/18/18 20:30 Temperature Pulse Rate 62 62 62 Respiratory Rate 16 17 16 Blood Pressure 141/63 H 146/68 H Pulse Oximetry 97 97 97 08/18/18 20:45 08/18/18 21:00 08/18/18 21:15 Temperature Pulse Rate 63 62 61 Respiratory Rate 16 16 16 Blood Pressure 148/67 H 150/70 H 152/70 H Pulse Oximetry 97 97 97 08/18/18 21:30 08/18/18 21:45 08/18/18 22:00 Temperature Pulse Rate 61 61 61 Respiratory Rate 16 16 16 Blood Pressure 154/70 H 149/67 H 152/70 H Pulse Oximetry 97 97 97 08/18/18 22:15 08/18/18 22:30 08/18/18 22:45 Temperature Pulse Rate 60 61 60 Respiratory Rate 16 16 16 Blood Pressure 144/66 H 146/67 H 147/67 H Pulse Oximetry 97 97 97 08/18/18 23:00 08/18/18 23:15 08/18/18 23:30 Temperature Pulse Rate 60 60 60 Respiratory Rate 16 16 16 Blood Pressure 143/65 H 147/67 H 148/67 H Pulse Oximetry 97 97 97 08/18/18 23:45 08/19/18 00:00 08/19/18 00:04 Temperature 98.8 F Pulse Rate 59 L 60 61 Respiratory Rate 16 16 16 Blood Pressure 151/68 H 135/64 Pulse Oximetry 97 97 08/19/18 00:05 08/19/18 00:15 08/19/18 00:30 Temperature Pulse Rate 60 60 Respiratory Rate 16 16 16 Blood Pressure 141/68 H 141/67 H Pulse Oximetry 97 97 97 08/19/18 00:45 08/19/18 01:00 08/19/18 01:15 Temperature Pulse Rate 60 60 60 Respiratory Rate 16 16 16 Blood Pressure 141/62 H 142/65 H 141/67 H Pulse Oximetry 97 97 97 08/19/18 01:30 08/19/18 01:45 08/19/18 02:00 Temperature Pulse Rate 60 60 60 Respiratory Rate 16 16 17 Blood Pressure 143/66 H 143/67 H Pulse Oximetry 97 97 98 08/19/18 02:15 08/19/18 02:28 08/19/18 02:30 Temperature Pulse Rate 61 65 64 Respiratory Rate 16 17 Blood Pressure 140/67 Pulse Oximetry 98 96 94 L 08/19/18 02:44 08/19/18 02:45 08/19/18 03:00 Temperature Pulse Rate 62 63 63 Respiratory Rate 17 17 17 Blood Pressure 136/62 138/63 Pulse Oximetry 97 97 97 08/19/18 03:15 08/19/18 03:27 08/19/18 03:30 Temperature Pulse Rate 63 62 63 Respiratory Rate 17 17 17 Blood Pressure 140/60 142/65 H Pulse Oximetry 97 97 08/19/18 03:45 08/19/18 04:00 08/19/18 04:15 Temperature 98.1 F Pulse Rate 63 63 63 Respiratory Rate 17 17 16 Blood Pressure 142/64 H 143/63 H 143/63 H Pulse Oximetry 97 97 96 08/19/18 04:30 08/19/18 04:45 08/19/18 05:00 Temperature Pulse Rate 63 62 63 Respiratory Rate 17 17 17 Blood Pressure 148/65 H 150/65 H 149/64 H Pulse Oximetry 96 96 96 08/19/18 05:15 08/19/18 05:30 08/19/18 05:45 Temperature Pulse Rate 63 69 63 Respiratory Rate 16 18 18 Blood Pressure 152/66 H 159/71 H 155/63 H Pulse Oximetry 96 92 L 97 08/19/18 06:00 08/19/18 06:15 08/19/18 06:30 Temperature Pulse Rate 64 63 63 Respiratory Rate 17 18 17 Blood Pressure 156/68 H 156/67 H 159/70 H Pulse Oximetry 97 97 97 08/19/18 06:45 08/19/18 07:00 08/19/18 08:00 Temperature Pulse Rate 63 62 Respiratory Rate 17 16 17 Blood Pressure 159/69 H Pulse Oximetry 97 98 Intake & Output 08/18/18 08/19/18 08/19/18 18:59 06:59 18:59 Intake Total 3557.2 / 3557.2 1427 / 1427 50 / 50 Output Total 4100 / 4100 900 / 900 Balance -542.8 / -542.8 527 / 527 50 / 50 Weight 103.6 kg Intake: IV 3276.2 / 3276.2 600 / 600 50 / 50 Cleviprex Inj 25 mg In 50 ml @ 150 / 150 50 / 50 1 MG/HR 2 mls/hr IV.CONT TITRATE PRN Rx#:[id number] Versed Inj 100 mg In 100 ml @ 2 100 / 100 100 / 100 MG/HR 2 mls/hr IV.CONT TITRATE PRN Rx#:[id number] Diprivan 1000 mg/100 ml Inj 1, 200 / 200 000 mg In 100 ml @ 5 MCG/KG/MIN 2.634 mls/hr IV.CONT TITRATE PRN Rx#:[id number] Cardene Inj 25 MG In NS Inj 240 1250 / 1250 ML @ 5 MG/HR 50 mls/hr IV.CONT TITRATE PRN Rx#:[id number] Azactam Inj 2 GM In NS Inj 100 200 / 200 100 / 100 ML @ 200 mls/hr IV.SIG Q8H SATYA Rx#:[id number] MVI-12 Inj 10 ML Thiamine Inj 511.2 / 511.2 100 MG Folvite Inj 1 MG In D5W- 1/2 NS Inj 500 ML @ 127.8 mls/ hr IV.SIG DAILY SATYA Rx#: [id number] Vancomycin Inj 1,500 MG In NS 515 / 515 Inj 500 ML @ 250 mls/hr IV.SIG Q24H SATYA Rx#:[id number] fentaNYL 10 mcg/mL Premix Drip 500 / 500 250 / 250 2,500 mcg In 250 ml @ 50 MCG/HR 5 mls/hr IV.SIG TITRATE PRN Rx #:[id number] Oral 0 / 0 Tube Feeding 81 / 81 427 / 427 Tube Irrigant 200 / 200 200 / 200 Water Bolus Amount 200 / 200 Output: Urine Amount (Catheter) 4100 / 4100 900 / 900 Indwelling Urethral Catheter 4100 / 4100 900 / 900 Other: Date of Last Bowel Movement 08/18/18 08/18/18 # Incontinent Bowel Movements 2 - Constitutional no acute distress - Routine HEENT Exam Head: Present: normocephalic, atraumatic Eye: Present: EOMI, PERRL, normal accommodation, conjunctivae pink ENT: Present: mucous membranes moist - Routine Neck Exam Present: supple, full ROM, trachea midline - Routine Respiratory Exam Present: patient mechanically ventilated, CTA bilaterally - Routine Cardiovascular Exam Present: RRR, S1, S2 - Routine Abdominal Exam Present: soft, normoactive bowel sounds - Routine Extremities Exam Present: pulses intact - Routine Skin Exam Present: intact - Routine Neurological Exam Present: altered mental status - Urinary Catheter Management Indwelling Urethral Catheter Cath placed during this visit: yes, but has since been removed by the nurse Reason for continuing: Acute urinary retention Insertion date: 08/17/18 Insertion time: 18:30 Removal date: 08/11/18 Removal time: 09:50 Condom Cath placed during this visit: no Reason for continuing: Not indwelling catheter Straight Cath placed during this visit: yes Reason for continuing: Acute urinary retention Insertion date: 08/17/18 Insertion time: 10:30 Assessment and Plan - Plan 1. VDRF 2. Aspiration pneumonia. 3. Encephalopathy. 4. Rhabdomyolysis with elevated CK. 5. C6 fracture. 6. Ethanol intoxication. 7. Anemia and thrombocytopenia. 8 Occlusive thrombus of the cephalic veins bilaterally. Plan Continue with vent support and maintain sats >92%. Bronchodilators, ICU vent bundle. SBT daily as miko. s/p perc trach at bedside 08/18 Pulm toilet, trach care CXR 08/18: . Moderate bibasilar parenchymal changes Monitor neuro status closely, daily sedation vacation. Neuro is following, Continue Thiamine. S/p LP, HSV PCR negative Abx- Off Zosyn. On Aztreonam, vanco , Monitor for signs of infection( fever and WBC). BC 08/22 bottles: Staph Epi likely contaminant, follow up on BC 08/18: NGTD 08/11 sputum culture: Normal resp sherman Monitor renal function and electrolyte replacement per protocol. Doppler US LE negative for DVT Doppler US UE: Occlusive thrombus of the cephalic veins bilaterally Echocardiogram showed EF of 50% to 55%. GI and DVT prophylaxis. Continue treatment plan.
[2018-08-19] MEDS: Multivitamin Inj 10 ML, Thiamine Inj 100 MG, Folic Acid Inj 1 MG in Dextrose 5%/NaCl 0.... IV.SIG SCH (11:27)
[2018-08-19] MEDS: Vancomycin Inj 1,500 MG in Sodium Chlor 0.9% Inj 500 ML IV.SIG SCH (11:29)
--- NOTE | 2018-08-19 11:41 | P.PNCC ---
Subjective Subjective Remarks/Hospital Course: 08/09: 58-year-old male who was found down in his friend's garage this morning. He has a history of alcohol abuse. He recently sold his house and was staying at a friend's home. Reportedly he was due to fly later today. Patient was brought to the ER by EMS and was noted to have involuntary movements with jerking movements involving upper and lower extremities as well as his head. He received Ativan 3 mg IV and was loaded with Keppra. Initially stroke alert was called. Head CT was negative for any bleed however there was question of C6 fracture. Neurology and neurosurgery were consulted. Patient was loaded with IV Cerebyx and Vimpat by neurology. He had a [place] J collar placed after placing hard cervical collar by neurosurgery. When I evaluated the patient in the ER he was still having involuntary movements which appeared to be episodic with occasional twitchings on his face and nystagmus. This did not appear to be generalized tonic-clonic convulsions however appeared more like an extrapyramidal reaction. I ordered a stat EEG. Patient moving around too much to obtain MRI at this time. His urine tox screen was negative. He was positive for alcohol. Patient nonverbal. His involuntary movements get exaggerated on stimulation. He was reportedly completely normal yesterday. 08/10: Patient had an episode of emesis last night followed by labored breathing. He continued to have involuntary movements. He was intubated and placed on mechanical ventilation. Currently sedated with propofol, orally intubated on mechanical ventilation. Awaiting MRI brain and C-spine. EEG done yesterday did not show any seizure activity. 08/11: Sedated, orally intubated on mechanical ventilation. MRI brain unremarkable. MRI C-spine with hairline C6 fracture with no displacement. 08/12: Remains sedated, orally intubated on mechanical ventilation. Reintubated yesterday for significant hypoxia and respiratory distress with O2 sats dropping to the 70s despite nonrebreather facemask. CT pulmonary angiogram was negative for PE and showed bilateral infiltrates at the bases. 08/13: Remains sedated, orally intubated on mechanical ventilation. On propofol /fentanyl GTT. Starting tube feeds 08/14: T-max 99.4. Currently 98.3. Scheduled for IR for lumbar puncture today. Patient acute injury. Patient is on vancomycin, acyclovir and did receive IV contrast recently. Renal ultrasound ordered. Urine eosinophils, sodium and creatinine ordered. Arousable and does follow commands on the ventilator. Breakthrough agitation/involuntary systemic movements noted 08/15: Plan for lumbar puncture today. Will likely try sedation vacation overnight. See 4 mg of midazolam overnight due to agitation. Appears comfortable. Intermittently follows commands. 08/16: Lumbar puncture from yesterday accomplished. We will try sedation vacation again today and tried on dexmedetomidine drip. Rash is much improved. Discontinued lacosamide possible source of rash. Remains leukopenic and elevated eosinophils. 08/17: Low-grade fevers overnight. Blood cultures x2, sputum performed. Will start on piperacillin/tazobactam vancomycin. Extubated today. Tolerated about 2 hours but became hypoxic on 100% nonrebreather and tachypneic. Intubated with axial traction. Will need tracheostomy has failed extubation x2 SUBJECTIVE: 08/18: T-max 100.1. Failed extubation requiring reintubation. Tracheostomy planned for 10 AM today. 08/19: Afebrile overnight. Chest x-ray following tracheostomy demonstrates tube in good position safely above the tory. Basilar infiltrates persist but clearing. On spontaneous breathing trial earlier today he had apneic episodes. With no sedation he becomes extremely agitated however. Objective Vital Signs / I&O: Vital Signs 08/18/18 11:15 08/18/18 11:30 08/18/18 11:45 Temperature Pulse Rate 63 63 62 Respiratory Rate 20 20 20 Blood Pressure 162/59 H 162/70 H 165/71 H Pulse Oximetry 96 96 97 08/18/18 12:00 08/18/18 12:15 08/18/18 12:22 Temperature 98.6 F Pulse Rate 61 61 Respiratory Rate 20 20 20 Blood Pressure 167/72 H 169/72 H Pulse Oximetry 97 98 08/18/18 12:30 08/18/18 12:45 08/18/18 12:57 Temperature Pulse Rate 61 61 60 Respiratory Rate 20 20 20 Blood Pressure 170/74 H 168/73 H Pulse Oximetry 98 98 08/18/18 12:58 08/18/18 13:00 08/18/18 13:15 Temperature Pulse Rate 61 62 Respiratory Rate 20 20 20 Blood Pressure 167/73 H 171/75 H Pulse Oximetry 97 96 96 08/18/18 13:30 08/18/18 13:45 08/18/18 14:00 Temperature Pulse Rate 62 62 62 Respiratory Rate 20 20 20 Blood Pressure 173/76 H 175/76 H 173/75 H Pulse Oximetry 97 97 97 08/18/18 14:15 08/18/18 14:30 08/18/18 14:45 Temperature Pulse Rate 62 63 62 Respiratory Rate 20 20 20 Blood Pressure 170/73 H 165/72 H 165/72 H Pulse Oximetry 97 97 97 08/18/18 15:00 08/18/18 15:07 08/18/18 15:15 Temperature Pulse Rate 62 63 Respiratory Rate 20 20 Blood Pressure 162/71 H 153/58 H Pulse Oximetry 97 97 08/18/18 15:30 08/18/18 15:45 08/18/18 16:00 Temperature 98.2 F Pulse Rate 63 62 63 Respiratory Rate 20 Blood Pressure 151/66 H 152/67 H 149/57 H Pulse Oximetry 97 97 97 08/18/18 16:14 08/18/18 16:15 08/18/18 16:30 Temperature Pulse Rate 62 63 Respiratory Rate 20 20 20 Blood Pressure 153/67 H 145/63 H Pulse Oximetry 97 96 08/18/18 16:42 08/18/18 16:45 08/18/18 17:00 Temperature Pulse Rate 62 62 61 Respiratory Rate 16 20 16 Blood Pressure 144/63 H 143/63 H Pulse Oximetry 96 96 95 08/18/18 17:15 08/18/18 17:21 08/18/18 17:30 Temperature Pulse Rate 60 60 60 Respiratory Rate 16 16 16 Blood Pressure 144/63 H 136/60 141/64 H Pulse Oximetry 96 96 96 08/18/18 17:45 08/18/18 18:00 08/18/18 18:15 Temperature Pulse Rate 61 60 61 Respiratory Rate 16 16 16 Blood Pressure 139/62 141/63 H 133/59 L Pulse Oximetry 96 96 96 08/18/18 18:30 08/18/18 18:34 08/18/18 18:38 Temperature Pulse Rate 66 63 Respiratory Rate 28 H 16 16 Blood Pressure 160/58 H 156/65 H Pulse Oximetry 90 L 95 08/18/18 18:45 08/18/18 19:00 08/18/18 19:15 Temperature Pulse Rate 61 60 60 Respiratory Rate 16 16 16 Blood Pressure 152/66 H 154/59 H 155/67 H Pulse Oximetry 96 97 97 08/18/18 19:30 08/18/18 19:45 08/18/18 20:00 Temperature 98.4 F Pulse Rate 60 61 62 Respiratory Rate 16 18 16 Blood Pressure 156/63 H 159/69 H 149/59 H Pulse Oximetry 97 97 97 08/18/18 20:11 08/18/18 20:15 08/18/18 20:30 Temperature Pulse Rate 62 62 62 Respiratory Rate 16 17 16 Blood Pressure 141/63 H 146/68 H Pulse Oximetry 97 97 97 08/18/18 20:45 08/18/18 21:00 08/18/18 21:15 Temperature Pulse Rate 63 62 61 Respiratory Rate 16 16 16 Blood Pressure 148/67 H 150/70 H 152/70 H Pulse Oximetry 97 97 97 08/18/18 21:30 08/18/18 21:45 08/18/18 22:00 Temperature Pulse Rate 61 61 61 Respiratory Rate 16 16 16 Blood Pressure 154/70 H 149/67 H 152/70 H Pulse Oximetry 97 97 97 08/18/18 22:15 08/18/18 22:30 08/18/18 22:45 Temperature Pulse Rate 60 61 60 Respiratory Rate 16 16 16 Blood Pressure 144/66 H 146/67 H 147/67 H Pulse Oximetry 97 97 97 08/18/18 23:00 08/18/18 23:15 08/18/18 23:30 Temperature Pulse Rate 60 60 60 Respiratory Rate 16 16 16 Blood Pressure 143/65 H 147/67 H 148/67 H Pulse Oximetry 97 97 97 08/18/18 23:45 08/19/18 00:00 08/19/18 00:04 Temperature 98.8 F Pulse Rate 59 L 60 61 Respiratory Rate 16 16 16 Blood Pressure 151/68 H 135/64 Pulse Oximetry 97 97 08/19/18 00:05 08/19/18 00:15 08/19/18 00:30 Temperature Pulse Rate 60 60 Respiratory Rate 16 16 16 Blood Pressure 141/68 H 141/67 H Pulse Oximetry 97 97 97 08/19/18 00:45 08/19/18 01:00 08/19/18 01:15 Temperature Pulse Rate 60 60 60 Respiratory Rate 16 16 16 Blood Pressure 141/62 H 142/65 H 141/67 H Pulse Oximetry 97 97 97 08/19/18 01:30 08/19/18 01:45 08/19/18 02:00 Temperature Pulse Rate 60 60 60 Respiratory Rate 16 16 17 Blood Pressure 143/66 H 143/67 H Pulse Oximetry 97 97 98 08/19/18 02:15 08/19/18 02:28 08/19/18 02:30 Temperature Pulse Rate 61 65 64 Respiratory Rate 16 17 Blood Pressure 140/67 Pulse Oximetry 98 96 94 L 08/19/18 02:44 08/19/18 02:45 08/19/18 03:00 Temperature Pulse Rate 62 63 63 Respiratory Rate 17 17 17 Blood Pressure 136/62 138/63 Pulse Oximetry 97 97 97 08/19/18 03:15 08/19/18 03:27 08/19/18 03:30 Temperature Pulse Rate 63 62 63 Respiratory Rate 17 17 17 Blood Pressure 140/60 142/65 H Pulse Oximetry 97 97 08/19/18 03:45 08/19/18 04:00 08/19/18 04:15 Temperature 98.1 F Pulse Rate 63 63 63 Respiratory Rate 17 17 16 Blood Pressure 142/64 H 143/63 H 143/63 H Pulse Oximetry 97 97 96 08/19/18 04:30 08/19/18 04:45 08/19/18 05:00 Temperature Pulse Rate 63 62 63 Respiratory Rate 17 17 17 Blood Pressure 148/65 H 150/65 H 149/64 H Pulse Oximetry 96 96 96 08/19/18 05:15 08/19/18 05:30 08/19/18 05:45 Temperature Pulse Rate 63 69 63 Respiratory Rate 16 18 18 Blood Pressure 152/66 H 159/71 H 155/63 H Pulse Oximetry 96 92 L 97 08/19/18 06:00 08/19/18 06:15 08/19/18 06:30 Temperature Pulse Rate 64 63 63 Respiratory Rate 17 18 17 Blood Pressure 156/68 H 156/67 H 159/70 H Pulse Oximetry 97 97 97 08/19/18 06:45 08/19/18 07:00 08/19/18 08:00 Temperature Pulse Rate 63 62 Respiratory Rate 17 16 17 Blood Pressure 159/69 H Pulse Oximetry 97 98 Intake & Output 08/18/18 08/19/18 08/19/18 18:59 06:59 18:59 Intake Total 3557.2 / 3557.2 1427 / 1427 200 / 200 Output Total 4100 / 4100 900 / 900 Balance -542.8 / -542.8 527 / 527 200 / 200 Weight 103.6 kg Intake: IV 3276.2 / 3276.2 600 / 600 200 / 200 Cleviprex Inj 25 mg In 50 ml @ 150 / 150 100 / 100 1 MG/HR 2 mls/hr IV.CONT TITRATE PRN Rx#:[id number] Versed Inj 100 mg In 100 ml @ 2 100 / 100 100 / 100 MG/HR 2 mls/hr IV.CONT TITRATE PRN Rx#:[id number] Diprivan 1000 mg/100 ml Inj 1, 200 / 200 000 mg In 100 ml @ 5 MCG/KG/MIN 2.634 mls/hr IV.CONT TITRATE PRN Rx#:[id number] Cardene Inj 25 MG In NS Inj 240 1250 / 1250 ML @ 5 MG/HR 50 mls/hr IV.CONT TITRATE PRN Rx#:[id number] Azactam Inj 2 GM In NS Inj 100 200 / 200 100 / 100 100 / 100 ML @ 200 mls/hr IV.SIG Q8H SATYA Rx#:[id number] MVI-12 Inj 10 ML Thiamine Inj 511.2 / 511.2 100 MG Folvite Inj 1 MG In D5W- 1/2 NS Inj 500 ML @ 127.8 mls/ hr IV.SIG DAILY SATYA Rx#: [id number] Vancomycin Inj 1,500 MG In NS 515 / 515 Inj 500 ML @ 250 mls/hr IV.SIG Q24H SATYA Rx#:[id number] fentaNYL 10 mcg/mL Premix Drip 500 / 500 250 / 250 2,500 mcg In 250 ml @ 50 MCG/HR 5 mls/hr IV.SIG TITRATE PRN Rx #:[id number] Oral 0 / 0 Tube Feeding 81 / 81 427 / 427 Tube Irrigant 200 / 200 200 / 200 Water Bolus Amount 200 / 200 Output: Urine Amount (Catheter) 4100 / 4100 900 / 900 Indwelling Urethral Catheter 4100 / 4100 900 / 900 Other: Date of Last Bowel Movement 08/18/18 08/18/18 # Incontinent Bowel Movements 2 Result Diagrams: 08/19/18 05:42 08/19/18 05:42 Objective Remarks: GENERAL: 58-year-old male on mechanical ventilation via tracheostomy SKIN: Warm and dry. Continued diffuse maculopapular rash blanchable. Involving face, thorax and lower extremities improved. HEAD: Atraumatic. Normocephalic. EYES: Pupils equal and round. No scleral icterus. No injection or drainage. ENT: No nasal bleeding or discharge. Mucous membranes pink and moist. NECK: Trachea midline. Tracheostomy site clean and dry, tube well secured. CARDIOVASCULAR: Regular rate and rhythm. S1, S2. No S4. No murmur, rub. No JVD. RESPIRATORY: No accessory muscle use. Persistent coarse crackles in the bases. Plentiful mobile secretions. GASTROINTESTINAL: Abdomen soft, non-tender, nondistended. Hypoactive bowel sounds are appreciated MUSCULOSKELETAL: Extremities without significant peripheral edema. No obvious deformities. NEUROLOGICAL: Remains arousable on the ventilator, opens eyes but does not track. Moving all 4 extremities spontaneously. Breathes over the ventilator rate but suffers apnea spells. Assessment and Plan - Assessment and Plan Plan: Neuro/Psych: Acute toxic metabolic encephalopathy Involuntary movements -EEG 08/09- for epileptiform activity Anterior C6 fracture -[place] J collar times 6 weeks EtOH abuse/withdrawal. Level 114 admission Currently on propofol at 50 william grams per kilogram per minute/fentanyl drip at 250 william grams an hour for sedation/analgesia while intubated Dexmedetomidine drip added 08/14 for weaning Follow neuro checks. Neurology neurosurgery consulted. EEG done in ER did not reveal any seizure activity with ongoing involuntary movements. MRI brain unremarkable, MRI C-spine nondisplaced C6 fracture, continue [place] J collar for 6 weeks per neurosurgery. Aspirin placed on hold for lumbar puncture. Okay to resume dIscontinued lacosamide 100 mg IV twice daily secondary to rash Started thiamine/MVI/folic acid daily and history of EtOH abuse Currently on chlordiazepoxide 50 mg mg twice daily. 08/15 discontinued quetiapine 50 mg twice daily due to rash Started Latuda 40 mg daily and Depakene 250 mg twice daily 08/17 for mood stabilization Neurology started acyclovir IV while awaiting lumbar puncture. This discontinued 08/15 with negative HSV Attempts by me to wean ventilator with Versed unsuccessful, try to substitute Precedex. Cardiovascular: Hypertensive emergency Elevated cholesterol/total Elevated HDL Rhabdomyolysis downtrending CPK to 1000 Initially was hypertensive on arrival. Hydralazine and labetalol and nicardipine drip as needed. Continue carvedilol 12.5 mg p.o. twice daily Troponin 0.04 Pulmonary: Acute hypoxic hypercapnic respiratory failure Intubated for airway protection and placed on mechanical ventilation following episode of emesis with question of aspiration on 08/10 AM. Extubated 08/17 but reintubated same day PRVC ventilation 16/550///40 vent bundle, Albuterol/ipratropium aerosols every 4 hours with albuterol aerosols every 2 hours as needed dyspnea tolerated CPAP trial and extubated on 08/11 however about 5 hours following extubation and required reintubation for hypoxic respiratory failure of unclear etiology. CT pulmonary angiogram negative for PE but possible right subclavian thrombus. Check upper extremity Dopplers today.. Consulted pulmonary for further evaluation of hypoxic respiratory failure Basilar villarreal staring to clear. GI/liver: Elevated transaminases downward trending Hypoalbuminemia with moderate protein calorie malnutrition Continue tube feeds with Nepro goal 50 cc an hour and advance to goal as tolerated. Hold due to tracheostomy planned for today Famotidine 20 mg daily for GI prophylaxis Docusate sodium/senna 1 tablet twice daily for bowel regimen. Added polyethylene glycol 17 g twice daily and lactulose 30 cc twice daily Negative hepatitis panel FEN/renal/: Acute kidney injury resolving Acute hypernatremia Hypomagnesia Urinary retention with mild bilateral hydronephrosis IV hydration, strict intake output, monitor and replete electrolytes, follow BUN /creatinine. Bicarbonate drip discontinued 08/13. Free water 200 cc every 8 hours Potassium chloride 25 mEq by tube x1 now. Recheck in a.m. We will received/start on furosemide 40 mg IV twice daily Avoid nephrotoxic medications. Will Place Goff if needed for urinary retention. ID: 08/15 discontinued vancomycin, piperacillin/tazobactam and acyclovir. Watch for fever/leukocytosis Blood cultures x21 10/10 no growth to date repeat blood cultures 08/17 and sputum pending Sputum 08/11 no growth to date Number puncture with IR today 08/15-negative HSV. Started vancomycin, piperacillin/tazobactam 08/17 3 discontinued Zosyn 08/18 due to rash. Started aztreonam 2 g IV every 8 hours Endocrine: Watch for hyperglycemia, SSI for glycemic control with aspart insulin/low regimen every 6 hours Normal TSH Heme: Macrocytic anemia Documentation of prior possible right subclavian occlusion -negative Doppler Bilateral cephalic occlusive and nonocclusive superficial venous thrombosis Follow CBC. No indication for transfusion of blood products at this time Subcu heparin DVT prophylaxis MSK: Elevated BMI Diffuse idiopathic skeletal hyperostosis drug rash possible DR VANDA Weight loss encouraged PT evaluate and treat On IV famotidine, diphenhydramine. Prophylaxis: SCDs. heparin 5000 units subcutaneously every 8 hourly 24 hours post lumbar puncture, famotidine for GI prophylaxis Overall impression: Patient remains critically ill with prolonged acute hypoxemic respiratory failure requiring tracheostomy. Efforts to wean from the ventilator are complicated by severe agitation. Efforts to quell severe agitation have been complicated by apnea episodes. Critical care 36 minutes
[2018-08-19] MEDS: Midazolam 100 MG/100 ML Inj 100 MG/100 ML BAG IV.CONT PRN (13:21)
--- NOTE | 2018-08-19 13:49 | P.PNGI ---
Subjective Interval history: Pt intubated via tracheostomy and sedated. <Aileen Jack - Last Filed: 08/19/18 13:43> Physical Exam Vital signs: Vital Signs 08/18/18 13:45 08/18/18 14:00 08/18/18 14:15 Temperature Pulse Rate 62 62 62 Respiratory Rate 20 20 20 Blood Pressure 175/76 H 173/75 H 170/73 H Pulse Oximetry 97 97 97 08/18/18 14:30 08/18/18 14:45 08/18/18 15:00 Temperature Pulse Rate 63 62 62 Respiratory Rate 20 20 20 Blood Pressure 165/72 H 165/72 H 162/71 H Pulse Oximetry 97 97 97 08/18/18 15:07 08/18/18 15:15 08/18/18 15:30 Temperature Pulse Rate 63 63 Respiratory Rate 20 Blood Pressure 153/58 H 151/66 H Pulse Oximetry 97 97 08/18/18 15:45 08/18/18 16:00 08/18/18 16:14 Temperature 98.2 F Pulse Rate 62 63 Respiratory Rate 20 20 Blood Pressure 152/67 H 149/57 H Pulse Oximetry 97 97 08/18/18 16:15 08/18/18 16:30 08/18/18 16:42 Temperature Pulse Rate 62 63 62 Respiratory Rate 20 20 16 Blood Pressure 153/67 H 145/63 H Pulse Oximetry 97 96 96 08/18/18 16:45 08/18/18 17:00 08/18/18 17:15 Temperature Pulse Rate 62 61 60 Respiratory Rate 20 16 16 Blood Pressure 144/63 H 143/63 H 144/63 H Pulse Oximetry 96 95 96 08/18/18 17:21 08/18/18 17:30 08/18/18 17:45 Temperature Pulse Rate 60 60 61 Respiratory Rate 16 16 16 Blood Pressure 136/60 141/64 H 139/62 Pulse Oximetry 96 96 96 08/18/18 18:00 08/18/18 18:15 08/18/18 18:30 Temperature Pulse Rate 60 61 66 Respiratory Rate 16 16 28 H Blood Pressure 141/63 H 133/59 L 160/58 H Pulse Oximetry 96 96 90 L 08/18/18 18:34 08/18/18 18:38 08/18/18 18:45 Temperature Pulse Rate 63 61 Respiratory Rate 16 16 16 Blood Pressure 156/65 H 152/66 H Pulse Oximetry 95 96 08/18/18 19:00 08/18/18 19:15 08/18/18 19:30 Temperature 98.4 F Pulse Rate 60 60 60 Respiratory Rate 16 16 16 Blood Pressure 154/59 H 155/67 H 156/63 H Pulse Oximetry 97 97 97 08/18/18 19:45 08/18/18 20:00 08/18/18 20:11 Temperature Pulse Rate 61 62 62 Respiratory Rate 18 16 16 Blood Pressure 159/69 H 149/59 H Pulse Oximetry 97 97 97 08/18/18 20:15 08/18/18 20:30 08/18/18 20:45 Temperature Pulse Rate 62 62 63 Respiratory Rate 17 16 16 Blood Pressure 141/63 H 146/68 H 148/67 H Pulse Oximetry 97 97 97 08/18/18 21:00 08/18/18 21:15 08/18/18 21:30 Temperature Pulse Rate 62 61 61 Respiratory Rate 16 16 16 Blood Pressure 150/70 H 152/70 H 154/70 H Pulse Oximetry 97 97 97 08/18/18 21:45 08/18/18 22:00 08/18/18 22:15 Temperature Pulse Rate 61 61 60 Respiratory Rate 16 16 16 Blood Pressure 149/67 H 152/70 H 144/66 H Pulse Oximetry 97 97 97 08/18/18 22:30 08/18/18 22:45 08/18/18 23:00 Temperature Pulse Rate 61 60 60 Respiratory Rate 16 16 16 Blood Pressure 146/67 H 147/67 H 143/65 H Pulse Oximetry 97 97 97 08/18/18 23:15 08/18/18 23:30 08/18/18 23:45 Temperature Pulse Rate 60 60 59 L Respiratory Rate 16 16 16 Blood Pressure 147/67 H 148/67 H 151/68 H Pulse Oximetry 97 97 97 08/19/18 00:00 08/19/18 00:04 08/19/18 00:05 Temperature 98.8 F Pulse Rate 60 61 Respiratory Rate 16 16 16 Blood Pressure 135/64 Pulse Oximetry 97 97 08/19/18 00:15 08/19/18 00:30 08/19/18 00:45 Temperature Pulse Rate 60 60 60 Respiratory Rate 16 16 16 Blood Pressure 141/68 H 141/67 H 141/62 H Pulse Oximetry 97 97 97 08/19/18 01:00 08/19/18 01:15 08/19/18 01:30 Temperature Pulse Rate 60 60 60 Respiratory Rate 16 16 16 Blood Pressure 142/65 H 141/67 H 143/66 H Pulse Oximetry 97 97 97 08/19/18 01:45 08/19/18 02:00 08/19/18 02:15 Temperature Pulse Rate 60 60 61 Respiratory Rate 16 17 Blood Pressure 143/67 H Pulse Oximetry 97 98 98 08/19/18 02:28 08/19/18 02:30 08/19/18 02:44 Temperature Pulse Rate 65 64 62 Respiratory Rate 16 17 17 Blood Pressure 140/67 136/62 Pulse Oximetry 96 94 L 97 08/19/18 02:45 08/19/18 03:00 08/19/18 03:15 Temperature Pulse Rate 63 63 63 Respiratory Rate 17 17 17 Blood Pressure 138/63 140/60 Pulse Oximetry 97 97 97 08/19/18 03:27 08/19/18 03:30 08/19/18 03:45 Temperature Pulse Rate 62 63 63 Respiratory Rate 17 17 17 Blood Pressure 142/65 H 142/64 H Pulse Oximetry 97 97 08/19/18 04:00 08/19/18 04:15 08/19/18 04:30 Temperature 98.1 F Pulse Rate 63 63 63 Respiratory Rate 17 16 17 Blood Pressure 143/63 H 143/63 H 148/65 H Pulse Oximetry 97 96 96 08/19/18 04:45 08/19/18 05:00 08/19/18 05:15 Temperature Pulse Rate 62 63 63 Respiratory Rate 17 17 16 Blood Pressure 150/65 H 149/64 H 152/66 H Pulse Oximetry 96 96 96 08/19/18 05:30 08/19/18 05:45 08/19/18 06:00 Temperature Pulse Rate 69 63 64 Respiratory Rate 18 18 17 Blood Pressure 159/71 H 155/63 H 156/68 H Pulse Oximetry 92 L 97 97 08/19/18 06:15 08/19/18 06:30 08/19/18 06:45 Temperature Pulse Rate 63 63 63 Respiratory Rate 18 17 17 Blood Pressure 156/67 H 159/70 H 159/69 H Pulse Oximetry 97 97 97 08/19/18 07:00 08/19/18 07:15 08/19/18 07:30 Temperature Pulse Rate 63 63 63 Respiratory Rate 18 17 17 Blood Pressure 160/58 H 163/70 H 161/70 H Pulse Oximetry 97 97 96 08/19/18 07:45 08/19/18 07:48 08/19/18 08:00 Temperature 98.4 F Pulse Rate 62 62 62 Respiratory Rate 17 18 17 Blood Pressure 163/70 H 164/72 H 163/70 H Pulse Oximetry 97 97 97 08/19/18 08:15 08/19/18 08:30 08/19/18 08:45 Temperature Pulse Rate 62 63 62 Respiratory Rate 17 16 17 Blood Pressure 161/69 H 162/59 H 162/71 H Pulse Oximetry 97 98 98 08/19/18 09:00 08/19/18 09:15 08/19/18 09:30 Temperature Pulse Rate 63 62 62 Respiratory Rate 17 17 17 Blood Pressure 156/68 H 157/69 H 156/68 H Pulse Oximetry 98 99 99 08/19/18 09:45 08/19/18 10:00 08/19/18 10:15 Temperature Pulse Rate 63 79 79 Respiratory Rate 17 24 15 Blood Pressure 161/81 H 155/79 H 169/96 H Pulse Oximetry 96 92 L 95 08/19/18 10:30 08/19/18 10:45 08/19/18 11:00 Temperature Pulse Rate 68 69 71 Respiratory Rate 21 18 18 Blood Pressure 152/67 H 155/73 H 146/66 H Pulse Oximetry 97 99 98 08/19/18 11:15 08/19/18 11:30 08/19/18 11:45 Temperature Pulse Rate 63 63 83 Respiratory Rate 17 17 26 H Blood Pressure 149/67 H 150/67 H 161/73 H Pulse Oximetry 98 99 92 L 08/19/18 12:00 08/19/18 12:37 08/19/18 12:40 Temperature 98.5 F Pulse Rate 70 69 Respiratory Rate 16 16 16 Blood Pressure 158/72 H Pulse Oximetry 94 L 100 Intake & Output 08/18/18 08/19/18 08/19/18 18:59 06:59 18:59 Intake Total 3557.2 / 3557.2 1427 / 1427 400 / 400 Output Total 4100 / 4100 900 / 900 Balance -542.8 / -542.8 527 / 527 400 / 400 Weight 103.6 kg Intake: IV 3276.2 / 3276.2 600 / 600 400 / 400 Cleviprex Inj 25 mg In 50 ml @ 150 / 150 200 / 200 1 MG/HR 2 mls/hr IV.CONT TITRATE PRN Rx#:[id number] Versed Inj 100 mg In 100 ml @ 2 100 / 100 100 / 100 100 / 100 MG/HR 2 mls/hr IV.CONT TITRATE PRN Rx#:[id number] Diprivan 1000 mg/100 ml Inj 1, 200 / 200 000 mg In 100 ml @ 5 MCG/KG/MIN 2.634 mls/hr IV.CONT TITRATE PRN Rx#:[id number] Cardene Inj 25 MG In NS Inj 240 1250 / 1250 ML @ 5 MG/HR 50 mls/hr IV.CONT TITRATE PRN Rx#:[id number] Azactam Inj 2 GM In NS Inj 100 200 / 200 100 / 100 100 / 100 ML @ 200 mls/hr IV.SIG Q8H [facility] Rx#:[id number] MVI-12 Inj 10 ML Thiamine Inj 511.2 / 511.2 100 MG Folvite Inj 1 MG In D5W- 1/2 NS Inj 500 ML @ 127.8 mls/ hr IV.SIG DAILY [facility] Rx#: [id number] Vancomycin Inj 1,500 MG In NS 515 / 515 Inj 500 ML @ 250 mls/hr IV.SIG Q24H [facility] Rx#:[id number] fentaNYL 10 mcg/mL Premix Drip 500 / 500 250 / 250 2,500 mcg In 250 ml @ 50 MCG/HR 5 mls/hr IV.SIG TITRATE PRN Rx #:[id number] Oral 0 / 0 Tube Feeding 81 / 81 427 / 427 Tube Irrigant 200 / 200 200 / 200 Water Bolus Amount 200 / 200 Output: Urine Amount (Catheter) 4100 / 4100 900 / 900 Indwelling Urethral Catheter 4100 / 4100 900 / 900 Other: Date of Last Bowel Movement 08/18/18 08/18/18 # Incontinent Bowel Movements 2 - Constitutional no acute distress - Routine HEENT Exam Head: Present: normocephalic, atraumatic - Routine Respiratory Exam Present: patient mechanically ventilated - Routine Abdominal Exam Present: soft, normoactive bowel sounds. Absent: distended - Routine Skin Exam Present: dry, warm - Urinary Catheter Management Indwelling Urethral Catheter Cath placed during this visit: yes, but has since been removed by the nurse Reason for continuing: Acute urinary retention Insertion date: 08/17/18 Insertion time: 18:30 Removal date: 08/11/18 Removal time: 09:50 Condom Cath placed during this visit: no Reason for continuing: Not indwelling catheter Straight Cath placed during this visit: yes Reason for continuing: Acute urinary retention Insertion date: 08/17/18 Insertion time: 10:30 <Aileen Jack - Last Filed: 08/19/18 13:43> Vital signs: Vital Signs 08/18/18 17:45 08/18/18 18:00 08/18/18 18:15 Temperature Pulse Rate 61 60 61 Respiratory Rate 16 16 16 Blood Pressure 139/62 141/63 H 133/59 L Pulse Oximetry 96 96 96 08/18/18 18:30 08/18/18 18:34 08/18/18 18:38 Temperature Pulse Rate 66 63 Respiratory Rate 28 H 16 16 Blood Pressure 160/58 H 156/65 H Pulse Oximetry 90 L 95 08/18/18 18:45 08/18/18 19:00 08/18/18 19:15 Temperature Pulse Rate 61 60 60 Respiratory Rate 16 16 16 Blood Pressure 152/66 H 154/59 H 155/67 H Pulse Oximetry 96 97 97 08/18/18 19:30 08/18/18 19:45 08/18/18 20:00 Temperature 98.4 F Pulse Rate 60 61 62 Respiratory Rate 16 18 16 Blood Pressure 156/63 H 159/69 H 149/59 H Pulse Oximetry 97 97 97 08/18/18 20:11 08/18/18 20:15 08/18/18 20:30 Temperature Pulse Rate 62 62 62 Respiratory Rate 16 17 16 Blood Pressure 141/63 H 146/68 H Pulse Oximetry 97 97 97 08/18/18 20:45 08/18/18 21:00 08/18/18 21:15 Temperature Pulse Rate 63 62 61 Respiratory Rate 16 16 16 Blood Pressure 148/67 H 150/70 H 152/70 H Pulse Oximetry 97 97 97 08/18/18 21:30 08/18/18 21:45 08/18/18 22:00 Temperature Pulse Rate 61 61 61 Respiratory Rate 16 16 16 Blood Pressure 154/70 H 149/67 H 152/70 H Pulse Oximetry 97 97 97 08/18/18 22:15 08/18/18 22:30 08/18/18 22:45 Temperature Pulse Rate 60 61 60 Respiratory Rate 16 16 16 Blood Pressure 144/66 H 146/67 H 147/67 H Pulse Oximetry 97 97 97 08/18/18 23:00 08/18/18 23:15 08/18/18 23:30 Temperature Pulse Rate 60 60 60 Respiratory Rate 16 16 16 Blood Pressure 143/65 H 147/67 H 148/67 H Pulse Oximetry 97 97 97 08/18/18 23:45 08/19/18 00:00 08/19/18 00:04 Temperature 98.8 F Pulse Rate 59 L 60 61 Respiratory Rate 16 16 16 Blood Pressure 151/68 H 135/64 Pulse Oximetry 97 97 08/19/18 00:05 08/19/18 00:15 08/19/18 00:30 Temperature Pulse Rate 60 60 Respiratory Rate 16 16 16 Blood Pressure 141/68 H 141/67 H Pulse Oximetry 97 97 97 08/19/18 00:45 08/19/18 01:00 08/19/18 01:15 Temperature Pulse Rate 60 60 60 Respiratory Rate 16 16 16 Blood Pressure 141/62 H 142/65 H 141/67 H Pulse Oximetry 97 97 97 08/19/18 01:30 08/19/18 01:45 08/19/18 02:00 Temperature Pulse Rate 60 60 60 Respiratory Rate 16 16 17 Blood Pressure 143/66 H 143/67 H Pulse Oximetry 97 97 98 08/19/18 02:15 08/19/18 02:28 08/19/18 02:30 Temperature Pulse Rate 61 65 64 Respiratory Rate 16 17 Blood Pressure 140/67 Pulse Oximetry 98 96 94 L 08/19/18 02:44 08/19/18 02:45 08/19/18 03:00 Temperature Pulse Rate 62 63 63 Respiratory Rate 17 17 17 Blood Pressure 136/62 138/63 Pulse Oximetry 97 97 97 08/19/18 03:15 08/19/18 03:27 08/19/18 03:30 Temperature Pulse Rate 63 62 63 Respiratory Rate 17 17 17 Blood Pressure 140/60 142/65 H Pulse Oximetry 97 97 08/19/18 03:45 08/19/18 04:00 08/19/18 04:15 Temperature 98.1 F Pulse Rate 63 63 63 Respiratory Rate 17 17 16 Blood Pressure 142/64 H 143/63 H 143/63 H Pulse Oximetry 97 97 96 08/19/18 04:30 08/19/18 04:45 08/19/18 05:00 Temperature Pulse Rate 63 62 63 Respiratory Rate 17 17 17 Blood Pressure 148/65 H 150/65 H 149/64 H Pulse Oximetry 96 96 96 08/19/18 05:15 08/19/18 05:30 08/19/18 05:45 Temperature Pulse Rate 63 69 63 Respiratory Rate 16 18 18 Blood Pressure 152/66 H 159/71 H 155/63 H Pulse Oximetry 96 92 L 97 08/19/18 06:00 08/19/18 06:15 08/19/18 06:30 Temperature Pulse Rate 64 63 63 Respiratory Rate 17 18 17 Blood Pressure 156/68 H 156/67 H 159/70 H Pulse Oximetry 97 97 97 08/19/18 06:45 08/19/18 07:00 08/19/18 07:15 Temperature Pulse Rate 63 63 63 Respiratory Rate 17 18 17 Blood Pressure 159/69 H 160/58 H 163/70 H Pulse Oximetry 97 97 97 08/19/18 07:30 08/19/18 07:45 08/19/18 07:48 Temperature Pulse Rate 63 62 62 Respiratory Rate 17 17 18 Blood Pressure 161/70 H 163/70 H 164/72 H Pulse Oximetry 96 97 97 08/19/18 08:00 08/19/18 08:15 08/19/18 08:30 Temperature 98.4 F Pulse Rate 66 62 63 Respiratory Rate 17 17 16 Blood Pressure 163/70 H 161/69 H 162/59 H Pulse Oximetry 97 97 98 08/19/18 08:45 08/19/18 09:00 08/19/18 09:15 Temperature Pulse Rate 62 63 62 Respiratory Rate 17 17 17 Blood Pressure 162/71 H 156/68 H 157/69 H Pulse Oximetry 98 98 99 08/19/18 09:30 08/19/18 09:45 08/19/18 10:00 Temperature Pulse Rate 62 63 79 Respiratory Rate 17 17 24 Blood Pressure 156/68 H 161/81 H 155/79 H Pulse Oximetry 99 96 92 L 08/19/18 10:15 08/19/18 10:30 08/19/18 10:45 Temperature Pulse Rate 79 68 69 Respiratory Rate 15 21 18 Blood Pressure 169/96 H 152/67 H 155/73 H Pulse Oximetry 95 97 99 08/19/18 11:00 08/19/18 11:15 08/19/18 11:30 Temperature Pulse Rate 71 63 63 Respiratory Rate 18 17 17 Blood Pressure 146/66 H 149/67 H 150/67 H Pulse Oximetry 98 98 99 08/19/18 11:45 08/19/18 12:00 08/19/18 12:37 Temperature 98.5 F Pulse Rate 83 70 Respiratory Rate 26 H 16 16 Blood Pressure 161/73 H 158/72 H Pulse Oximetry 92 L 94 L 100 08/19/18 12:40 08/19/18 16:02 Temperature Pulse Rate 69 69 Respiratory Rate 16 14 Blood Pressure Pulse Oximetry 96 Intake & Output 08/18/18 08/19/18 08/19/18 18:59 06:59 18:59 Intake Total 3557.2 / 3557.2 1427 / 1427 1876.2 / 1876.2 Output Total 4100 / 4100 900 / 900 Balance -542.8 / -542.8 527 / 527 1876.2 / 1876.2 Weight 103.6 kg Intake: IV 3276.2 / 3276.2 600 / 600 1876.2 / 1876.2 Cleviprex Inj 25 mg In 50 ml @ 150 / 150 300 / 300 1 MG/HR 2 mls/hr IV.CONT TITRATE PRN Rx#:[id number] Versed Inj 100 mg In 100 ml @ 2 100 / 100 100 / 100 100 / 100 MG/HR 2 mls/hr IV.CONT TITRATE PRN Rx#:[id number] Diprivan 1000 mg/100 ml Inj 1, 200 / 200 000 mg In 100 ml @ 5 MCG/KG/MIN 2.634 mls/hr IV.CONT TITRATE PRN Rx#:[id number] Cardene Inj 25 MG In NS Inj 240 1250 / 1250 ML @ 5 MG/HR 50 mls/hr IV.CONT TITRATE PRN Rx#:[id number] Azactam Inj 2 GM In NS Inj 100 200 / 200 100 / 100 200 / 200 ML @ 200 mls/hr IV.SIG Q8H [facility] Rx#:[id number] MVI-12 Inj 10 ML Thiamine Inj 511.2 / 511.2 511.2 / 511.2 100 MG Folvite Inj 1 MG In D5W- 1/2 NS Inj 500 ML @ 127.8 mls/ hr IV.SIG DAILY [facility] Rx#: [id number] Vancomycin Inj 1,500 MG In NS 515 / 515 515 / 515 Inj 500 ML @ 250 mls/hr IV.SIG Q24H [facility] Rx#:[id number] fentaNYL 10 mcg/mL Premix Drip 500 / 500 250 / 250 250 / 250 2,500 mcg In 250 ml @ 50 MCG/HR 5 mls/hr IV.SIG TITRATE PRN Rx #:[id number] Oral 0 / 0 Tube Feeding 81 / 81 427 / 427 Tube Irrigant 200 / 200 200 / 200 Water Bolus Amount 200 / 200 Output: Urine Amount (Catheter) 4100 / 4100 900 / 900 Indwelling Urethral Catheter 4100 / 4100 900 / 900 Other: Date of Last Bowel Movement 08/18/18 08/18/18 # Incontinent Bowel Movements 2 - Urinary Catheter Management Indwelling Urethral Catheter Cath placed during this visit: no Condom Cath placed during this visit: no Straight Cath placed during this visit: no <Jaxon Jensen A - Last Filed: 08/19/18 17:30> Results - Labs CBC & Chem 7: 08/19/18 05:42 08/19/18 05:42 Laboratory Results - last 24 hr 08/15/18 08/19/18 08/19/18 11:39 05:42 05:42 WBC 9.3 RBC 3.31 L Hgb 10.5 L Hct 31.5 L MCV 95.4 MCH 31.8 MCHC 33.4 RDW 14.1 Plt Count 333 MPV 8.4 Prelim Diff (Auto) Manual diff required WBC Differential Manual diff final Seg Neuts % (Manual) 73 H Band Neuts % (Manual) 1 Lymphocytes % (Manual) 15 Monocytes % (Manual) 9 H Basophils % (Manual) 1 Myelocytes % (Man) 1 H Abs Neuts (Manual) 7.0 Differential Comment . Platelet Estimate Normal Platelet Morphology Normal Sodium 146 H Potassium 3.8 Chloride 110 H Carbon Dioxide 27.3 Anion Gap 9 BUN 19 H Creatinine 1.03 Estimated GFR 74 L Random Glucose 130 H Calcium 8.6 Phosphorus 4.5 Magnesium 2.2 Total Bilirubin 0.3 AST 22 ALT 34 Alkaline Phosphatase 124 H Total Protein 6.0 L Albumin 2.2 L CSF Myelin Basic Protein Less than 2.0 L CSF Oligoclonal Bands No bands Microbiology 08/17/18 00:30 Sputum - Endotracheal Gram Stain - Final 08/17/18 00:30 Sputum - Endotracheal Sputum Culture - Final No growth in 48 hours 08/18/18 11:45 Blood - Peripheral Aerobic Blood Culture - Preliminary No growth in 1 day 08/18/18 11:45 Blood - Peripheral Anaerobic Blood Culture - Preliminary No growth in 1 day 08/18/18 11:52 Blood - Peripheral Aerobic Blood Culture - Preliminary No growth in 1 day 08/18/18 11:52 Blood - Peripheral Anaerobic Blood Culture - Preliminary No growth in 1 day 08/17/18 03:20 Blood - Peripheral Aerobic Blood Culture - Preliminary No growth in 2 days 08/17/18 03:20 Blood - Peripheral Anaerobic Blood Culture - Preliminary No growth in 2 days 08/17/18 01:15 Blood - Peripheral Aerobic Blood Culture - Preliminary Staphylococcus epidermidis 08/17/18 01:15 Blood - Peripheral Anaerobic Blood Culture - Preliminary No growth in 2 days <Aileen Jack - Last Filed: 08/19/18 13:43> - Labs CBC & Chem 7: 08/19/18 05:42 08/19/18 05:42 Laboratory Results - last 24 hr 08/15/18 08/19/18 08/19/18 11:39 05:42 05:42 WBC 9.3 RBC 3.31 L Hgb 10.5 L Hct 31.5 L MCV 95.4 MCH 31.8 MCHC 33.4 RDW 14.1 Plt Count 333 MPV 8.4 Prelim Diff (Auto) Manual diff required WBC Differential Manual diff final Seg Neuts % (Manual) 73 H Band Neuts % (Manual) 1 Lymphocytes % (Manual) 15 Monocytes % (Manual) 9 H Basophils % (Manual) 1 Myelocytes % (Man) 1 H Abs Neuts (Manual) 7.0 Differential Comment . Platelet Estimate Normal Platelet Morphology Normal Sodium 146 H Potassium 3.8 Chloride 110 H Carbon Dioxide 27.3 Anion Gap 9 BUN 19 H Creatinine 1.03 Estimated GFR 74 L Random Glucose 130 H Calcium 8.6 Phosphorus 4.5 Magnesium 2.2 Total Bilirubin 0.3 AST 22 ALT 34 Alkaline Phosphatase 124 H Total Protein 6.0 L Albumin 2.2 L CSF Myelin Basic Protein Less than 2.0 L CSF Oligoclonal Bands No bands Microbiology 08/17/18 00:30 Sputum - Endotracheal Gram Stain - Final 08/17/18 00:30 Sputum - Endotracheal Sputum Culture - Final No growth in 48 hours 08/18/18 11:45 Blood - Peripheral Aerobic Blood Culture - Preliminary No growth in 1 day 08/18/18 11:45 Blood - Peripheral Anaerobic Blood Culture - Preliminary No growth in 1 day 08/18/18 11:52 Blood - Peripheral Aerobic Blood Culture - Preliminary No growth in 1 day 08/18/18 11:52 Blood - Peripheral Anaerobic Blood Culture - Preliminary No growth in 1 day 08/17/18 03:20 Blood - Peripheral Aerobic Blood Culture - Preliminary No growth in 2 days 08/17/18 03:20 Blood - Peripheral Anaerobic Blood Culture - Preliminary No growth in 2 days 08/17/18 01:15 Blood - Peripheral Aerobic Blood Culture - Preliminary Staphylococcus epidermidis 08/17/18 01:15 Blood - Peripheral Anaerobic Blood Culture - Preliminary No growth in 2 days <Jaxon Jensen - Last Filed: 08/19/18 17:30> Assessment and Plan (1) Encounter for PEG (percutaneous endoscopic gastrostomy) Status: Acute Code(s): Z43.1 - Encounter for attention to gastrostomy - Plan Assessment Dysphagiapatient brought to the hospital after being found down in the garage, undergoing work up for etiology. MRI cervical spine consistent for hairline C6 fracture with no displacement. Patient has had witnessed jerking movements, EEG negative for any seizure activity. Unfortunately, he has been unable to be weaned from the vent. He underwent tracheostomy yesterday. Our service has been consulted for PEG tube placement. 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 Jensen and this note is written on his behalf <Aileen Jack - Last Filed: 08/19/18 13:43> (1) Encounter for PEG (percutaneous endoscopic gastrostomy) Status: Acute Code(s): Z43.1 - Encounter for attention to gastrostomy - Attending Attestation Agree with above assessment and plan. <Jaxon Jensen - Last Filed: 08/19/18 17:30>
[2018-08-19] MEDS ORDERED: RASS Change Order OTHER ONE (14:00)
--- NOTE | 2018-08-19 14:21 | P.PCN ---
Date of procedure: 08/18/18 Procedure: Diagnosis: Hypoxemic respiratory failure Procedure: Flexible fiberoptic bronchoscopy Narrative: Timeout performed and patient suitably identified. Patient on mechanical ventilation through orotracheal tube with usual ICU monitoring devices in place. Sedation administered by the operative team. Using a side port and the ventilatory circuit the flexible bronchoscope was delivered down the endotracheal tube. The left and right bronchial segments branched normally. Numerous amounts of secretions in both secondary and tertiary bronchial segments. All suctioned clean for pale white sputum. Mucosa of the tracheobronchial tree is normal. At this time the scope and endotracheal tube were withdrawn to the level of the cricoid cartilage. This position was used to assist with visualization for the percutaneous tracheostomy. Following the tracheostomy the bronchoscope was delivered down the new trach tube and confirmed that the tracheostomy tube was in good position safely above the tory. The bronchoscope was removed, and inner cannula placed, and ventilation was rapidly restored through the new tracheostomy. Oxygen sats were maintained at greater than 95% throughout the procedure.
[2018-08-19] MEDS: Dexmedetomidine Inj 200 MCG in Sodium Chlor 0.9% Inj 48 ML IV.CONT PRN ×3 (14:48→22:53)
[2018-08-20] MEDS: Oral Hygiene Kit OROPHARYNG SCH ×5 (00:12→23:48)
[2018-08-20] MEDS: Aztreonam Inj 2 GM in Sodium Chloride 0.9% Inj 100 ML IV.SIG SCH ×3 (00:40→16:56)
[2018-08-20] MEDS: Artificial Tears Opth Drops 15 ML Bottle EACH EYE SCH ×3 (01:00→16:57)
[2018-08-20] MEDS: Dexmedetomidine Inj 200 MCG in Sodium Chlor 0.9% Inj 48 ML IV.CONT PRN ×5 (01:00→09:25)
[2018-08-20] MEDS: Clevidipine Inj 25 MG/50 ML VIAL IV.CONT PRN ×14 (01:01→23:47)
[2018-08-20] MEDS: hydrALAZINE HCl Inj 20 MG/ML Vial IV.PUSH PRN (02:03)
[2018-08-20 03:53] LABS: Baso # (Auto) 0.1 th/mm3 (0.0-0.2); Baso % (Auto) 0.8 % (0.0-2.0); Eos # (Auto) 0.1 th/mm3 (0.0-0.4); Eos % (Auto) 1.5 % (0.0-4.0); Hematocrit 30.4 % (39.0-51.0); Hemoglobin 10.7 gm/dL (13.0-17.0); Lymph # (Auto) 1.8 th/mm3 (1.0-4.8); Lymph % (Auto) 20.5 % (9.0-44.0); Mean Corpuscular HGB Conc 35.3 % (32.0-36.0); Mean Corpuscular Hemoglobin 32.6 pg (27.0-34.0); Mean Corpuscular Volume 92.3 fL (80.0-100.0); Mean Platelet Volume 7.7 fL (7.0-11.0); Mono # (Auto) 0.5 th/mm3 (0.0-0.9); Mono % (Auto) 5.4 % (0.0-8.0); Neut # (Auto) 6.2 th/mm3 (1.8-7.7); Neut % (Auto) 71.8 % (16.0-70.0); Platelet Count 441 th/mm3 (150-450); Red Blood Count 3.29 mil/mm3 (4.50-5.90); White Blood Count 8.6 th/mm3 (4.0-11.0)
[2018-08-20 04:13] LABS: Calcium 8.7 mg/dL (8.5-10.1); Carbon Dioxide 28.7 meq/L (21.0-32.0); Potassium 3.1 meq/L (3.5-5.1)
[2018-08-20] MEDS: fentaNYL 10 mcg/mL Premix Drip 2,500 MCG/250 ML BAG IV.SIG PRN ×2 (05:12→18:28)
[2018-08-20] MEDS: Famotidine PF Inj 20 MG/2 ML Vial IV.PUSH SCH ×2 (08:59→20:51)
[2018-08-20] MEDS ORDERED: ceFAZolin Inj 1 GM in Sodium Chlor 0.9% Inj 100 ML IV.SIG ONE (09:00)
[2018-08-20] MEDS: Aspirin 300 MG Supp RECTAL SCH ×2 (09:02→16:00)
--- NOTE | 2018-08-20 09:02 | P.PNPL ---
Subjective Interval history: Patient remains sedated with versed, fentanyl and Precedex drip on CPAP with PS 10, PEEP:5 and FIO2 40%. Afebrile. Did not tolerate CPAP trials yesterday as he became apneic. NPO for PEG tube placement today. Physical Exam Vital signs: Vital Signs 08/19/18 09:00 08/19/18 09:15 08/19/18 09:30 Temperature Pulse Rate 63 62 62 Respiratory Rate 17 17 17 Blood Pressure 156/68 H 157/69 H 156/68 H Pulse Oximetry 98 99 99 08/19/18 09:45 08/19/18 10:00 08/19/18 10:15 Temperature Pulse Rate 63 79 79 Respiratory Rate 17 24 15 Blood Pressure 161/81 H 155/79 H 169/96 H Pulse Oximetry 96 92 L 95 08/19/18 10:30 08/19/18 10:45 08/19/18 11:00 Temperature Pulse Rate 68 69 71 Respiratory Rate 21 18 18 Blood Pressure 152/67 H 155/73 H 146/66 H Pulse Oximetry 97 99 98 08/19/18 11:15 08/19/18 11:30 08/19/18 11:45 Temperature Pulse Rate 63 63 83 Respiratory Rate 17 17 26 H Blood Pressure 149/67 H 150/67 H 161/73 H Pulse Oximetry 98 99 92 L 08/19/18 12:00 08/19/18 12:37 08/19/18 12:40 Temperature 98.5 F Pulse Rate 70 69 Respiratory Rate 16 16 16 Blood Pressure 158/72 H Pulse Oximetry 94 L 100 08/19/18 13:00 08/19/18 13:15 08/19/18 13:30 Temperature Pulse Rate 67 79 70 Respiratory Rate 13 18 13 Blood Pressure 148/67 H 158/70 H 144/63 H Pulse Oximetry 96 94 L 92 L 08/19/18 13:45 08/19/18 14:00 08/19/18 14:15 Temperature Pulse Rate 68 67 67 Respiratory Rate 14 12 14 Blood Pressure 145/63 H 140/64 143/68 H Pulse Oximetry 94 L 94 L 93 L 08/19/18 14:30 08/19/18 14:45 08/19/18 15:00 Temperature Pulse Rate 67 89 70 Respiratory Rate 14 26 H 15 Blood Pressure 141/70 H 177/81 H 157/70 H Pulse Oximetry 93 L 93 L 96 08/19/18 15:15 08/19/18 15:30 08/19/18 15:45 Temperature Pulse Rate 65 64 62 Respiratory Rate 13 13 14 Blood Pressure 148/60 H 137/61 136/60 Pulse Oximetry 93 L 93 L 95 08/19/18 16:00 08/19/18 16:02 08/19/18 16:15 Temperature 98.8 F Pulse Rate 69 69 64 Respiratory Rate 14 14 13 Blood Pressure 152/70 H 140/60 Pulse Oximetry 95 96 93 L 08/19/18 16:30 08/19/18 16:45 08/19/18 17:00 Temperature Pulse Rate 63 63 61 Respiratory Rate 16 13 13 Blood Pressure 134/61 134/62 134/62 Pulse Oximetry 91 L 94 L 94 L 08/19/18 17:15 08/19/18 17:30 08/19/18 17:45 Temperature Pulse Rate 60 64 61 Respiratory Rate 12 13 13 Blood Pressure 133/63 142/67 H 141/64 H Pulse Oximetry 94 L 94 L 95 08/19/18 18:00 08/19/18 18:15 08/19/18 18:30 Temperature Pulse Rate 76 65 63 Respiratory Rate 27 H 12 12 Blood Pressure 147/73 H 144/66 H 146/72 H Pulse Oximetry 94 L 94 L 92 L 08/19/18 18:45 08/19/18 19:00 08/19/18 19:15 Temperature Pulse Rate 68 64 69 Respiratory Rate 12 14 13 Blood Pressure 139/68 144/65 H 142/67 H Pulse Oximetry 94 L 94 L 94 L 08/19/18 19:30 08/19/18 19:45 08/19/18 20:00 Temperature 99.0 F Pulse Rate 85 79 66 Respiratory Rate 26 H 31 H 12 Blood Pressure 178/83 H 157/71 H 148/66 H Pulse Oximetry 96 96 94 L 08/19/18 20:05 08/19/18 20:15 08/19/18 20:30 Temperature Pulse Rate 66 68 68 Respiratory Rate 21 12 12 Blood Pressure 144/65 H 152/69 H Pulse Oximetry 95 93 L 92 L 08/19/18 20:45 08/19/18 21:00 08/19/18 21:15 Temperature Pulse Rate 66 65 65 Respiratory Rate 12 12 12 Blood Pressure 150/68 H 149/67 H 153/69 H Pulse Oximetry 93 L 93 L 93 L 08/19/18 21:30 08/19/18 21:45 08/19/18 22:00 Temperature Pulse Rate 65 71 67 Respiratory Rate 11 L 27 H 14 Blood Pressure 155/70 H 156/71 H 157/72 H Pulse Oximetry 93 L 94 L 93 L 08/19/18 22:15 08/19/18 22:30 08/19/18 22:45 Temperature Pulse Rate 65 65 70 Respiratory Rate 12 12 18 Blood Pressure 159/71 H 156/72 H 159/72 H Pulse Oximetry 93 L 93 L 93 L 08/19/18 23:00 08/19/18 23:15 08/19/18 23:30 Temperature Pulse Rate 65 71 68 Respiratory Rate 12 15 22 Blood Pressure 164/75 H 155/72 H 155/72 H Pulse Oximetry 95 96 96 08/19/18 23:45 08/20/18 00:00 08/20/18 00:08 Temperature Pulse Rate 66 65 67 Respiratory Rate 13 13 15 Blood Pressure 161/81 H 156/66 H Pulse Oximetry 94 L 93 L 94 L 08/20/18 00:15 08/20/18 00:30 08/20/18 00:45 Temperature Pulse Rate 66 67 67 Respiratory Rate 14 18 12 Blood Pressure 161/72 H 166/76 H 154/78 H Pulse Oximetry 94 L 93 L 100 08/20/18 01:00 08/20/18 01:15 08/20/18 01:30 Temperature Pulse Rate 70 70 68 Respiratory Rate 18 13 16 Blood Pressure 166/74 H 169/77 H 166/78 H Pulse Oximetry 95 95 94 L 08/20/18 01:45 08/20/18 02:00 08/20/18 02:15 Temperature Pulse Rate 68 66 68 Respiratory Rate 12 12 18 Blood Pressure 162/69 H 170/77 H 158/70 H Pulse Oximetry 92 L 94 L 93 L 08/20/18 02:30 08/20/18 02:45 08/20/18 03:00 Temperature Pulse Rate 67 73 71 Respiratory Rate 14 28 H 17 Blood Pressure 144/62 H 182/74 H Pulse Oximetry 94 L 93 L 91 L 08/20/18 03:15 08/20/18 03:30 08/20/18 03:45 Temperature Pulse Rate 74 72 75 Respiratory Rate 22 14 25 H Blood Pressure 147/63 H 155/72 H 163/72 H Pulse Oximetry 95 94 L 94 L 08/20/18 04:00 08/20/18 04:07 08/20/18 04:15 Temperature 98.8 F Pulse Rate 73 74 78 Respiratory Rate 18 16 41 H Blood Pressure 141/92 H 162/77 H Pulse Oximetry 95 95 93 L 08/20/18 04:30 08/20/18 04:45 08/20/18 05:00 Temperature Pulse Rate 75 69 70 Respiratory Rate 33 H 15 16 Blood Pressure 172/83 H 168/72 H 159/70 H Pulse Oximetry 93 L 92 L 94 L 08/20/18 05:15 08/20/18 05:30 08/20/18 05:45 Temperature Pulse Rate 70 69 68 Respiratory Rate 21 18 20 Blood Pressure 170/80 H 175/83 H 181/86 H Pulse Oximetry 93 L 93 L 94 L 08/20/18 06:00 08/20/18 06:15 08/20/18 06:30 Temperature Pulse Rate 74 78 68 Respiratory Rate 29 H 40 H 15 Blood Pressure 177/79 H 173/91 H 171/80 H Pulse Oximetry 95 93 L 94 L 08/20/18 06:45 08/20/18 07:00 08/20/18 07:15 Temperature Pulse Rate 69 70 71 Respiratory Rate 17 18 21 Blood Pressure 167/74 H 160/70 H 170/78 H Pulse Oximetry 95 95 93 L 08/20/18 07:30 08/20/18 07:45 08/20/18 08:24 Temperature Pulse Rate 70 83 67 Respiratory Rate 22 36 H 15 Blood Pressure 175/79 H 189/74 H Pulse Oximetry 94 L 92 L 96 Intake & Output 08/19/18 08/20/18 08/20/18 18:59 06:59 18:59 Intake Total 2686.2 / 2686.2 1050 / 1050 50 / 50 Output Total 700 / 700 2300 / 2300 Balance 1986.2 / 1985.2 -1250 / -1250 50 / 50 Weight 99.8 kg Intake: IV 6.2 / 1926.2 1050 / 1050 50 / 50 Cleviprex Inj 25 mg In 50 ml @ 350 / 350 400 / 400 50 / 50 1 MG/HR 2 mls/hr IV.CONT TITRATE PRN Rx#:[id number] Precedex Inj 200 MCG In NS Inj 300 / 300 48 ML @ 0.2 MCG/KG/HR 5.18 mls/ hr IV.CONT TITRATE PRN Rx#: [id number] Versed Inj 100 mg In 100 ml @ 2 100 / 100 MG/HR 2 mls/hr IV.CONT TITRATE PRN Rx#:[id number] Azactam Inj 2 GM In NS Inj 100 200 / 200 100 / 100 ML @ 200 mls/hr IV.SIG Q8H SATYA Rx#:[id number] MVI-12 Inj 10 ML Thiamine Inj 511.2 / 511.2 100 MG Folvite Inj 1 MG In D5W- 1/2 NS Inj 500 ML @ 127.8 mls/ hr IV.SIG DAILY SATYA Rx#: [id number] Vancomycin Inj 1,500 MG In NS 515 / 515 Inj 500 ML @ 250 mls/hr IV.SIG Q24H SATYA Rx#:[id number] fentaNYL 10 mcg/mL Premix Drip 250 / 250 250 / 250 2,500 mcg In 250 ml @ 50 MCG/HR 5 mls/hr IV.SIG TITRATE PRN Rx #:[id number] Tube Feeding 320 / 320 Tube Irrigant 240 / 240 Water Bolus Amount 200 / 200 Output: Urine Amount (Catheter) 700 / 700 2300 / 2300 Indwelling Urethral Catheter 700 / 700 2300 / 2300 Other: Date of Last Bowel Movement 08/19/18 08/20/18 # Bowel Movements 1 # Incontinent Bowel Movements 1 - Constitutional no acute distress - Routine HEENT Exam Head: Present: normocephalic, atraumatic Eye: Present: EOMI, PERRL, normal accommodation, conjunctivae pink ENT: Present: mucous membranes moist - Routine Neck Exam Present: supple, full ROM, trachea midline - Routine Respiratory Exam Present: patient mechanically ventilated, CTA bilaterally - Routine Cardiovascular Exam Present: RRR, S1, S2 - Routine Abdominal Exam Present: soft, normoactive bowel sounds - Routine Neurological Exam Present: altered mental status - Urinary Catheter Management Indwelling Urethral Catheter Cath placed during this visit: yes, but has since been removed by the nurse Reason for continuing: Acute urinary retention Insertion date: 08/17/18 Insertion time: 18:30 Removal date: 08/11/18 Removal time: 09:50 Condom Cath placed during this visit: no Reason for continuing: Not indwelling catheter Straight Cath placed during this visit: yes Reason for continuing: Acute urinary retention Insertion date: 08/17/18 Insertion time: 10:30 Assessment and Plan - Plan 1. VDRF 2. Aspiration pneumonia. 3. Encephalopathy. 4. Rhabdomyolysis with elevated CK. 5. C6 fracture. 6. Ethanol intoxication. 7. Anemia and thrombocytopenia. 8 Occlusive thrombus of the cephalic veins bilaterally. Plan Continue with vent support and maintain sats >92%. Bronchodilators, ICU vent bundle. SBT daily as miko. s/p perc trach at bedside 08/18 Pulm toilet,trach care CXR 08/18: . Moderate bibasilar parenchymal changes Monitor neuro status closely, daily sedation vacation. Neuro is following, Continue Thiamine. S/p LP, HSV PCR negative. Daily sedation vacation as miko. Abx- Off Zosyn. On Aztreonam, vanco , Monitor for signs of infection( fever and WBC). 08/22 bottles: Staph Epi likely contaminant, follow up on 08/18: NGTD 08/11 sputum culture: Normal resp sherman Monitor renal function and electrolyte replacement per protocol. on Lasix 40mg BID NPO for trach today. Doppler US LE negative for DVT Doppler US UE: Occlusive thrombus of the cephalic veins bilaterally Echocardiogram showed EF of 50% to 55%. GI and DVT prophylaxis. Continue treatment plan.
[2018-08-20] MEDS: chlordiazePOXIDE 25 MG Capsule PO SCH ×2 (09:04→20:51)
[2018-08-20] MEDS: Folic Acid 1 MG Tablet PO SCH (09:04)
[2018-08-20] MEDS: Carvedilol 12.5 MG Tablet PO SCH ×2 (09:04→20:51)
[2018-08-20] MEDS: hydrALAZINE 25 MG Tablet PO SCH ×4 (09:04→18:27)
[2018-08-20] MEDS: amLODIPine 5 MG Tablet PO SCH ×2 (09:05→11:30)
[2018-08-20] MEDS: Chlorhexidine 0.12% Oral Kit 15 ML UDC OROPHARYNG SCH ×2 (09:06→19:50)
--- NOTE | 2018-08-20 09:30 | P.PNCC ---
Subjective Subjective Remarks/Hospital Course: 08/09: 58-year-old male who was found down in his friend's garage this morning. He has a history of alcohol abuse. He recently sold his house and was staying at a friend's home. Reportedly he was due to fly later today. Patient was brought to the ER by EMS and was noted to have involuntary movements with jerking movements involving upper and lower extremities as well as his head. He received Ativan 3 mg IV and was loaded with Keppra. Initially stroke alert was called. Head CT was negative for any bleed however there was question of C6 fracture. Neurology and neurosurgery were consulted. Patient was loaded with IV Cerebyx and Vimpat by neurology. He had a [place] J collar placed after placing hard cervical collar by neurosurgery. When I evaluated the patient in the ER he was still having involuntary movements which appeared to be episodic with occasional twitchings on his face and nystagmus. This did not appear to be generalized tonic-clonic convulsions however appeared more like an extrapyramidal reaction. I ordered a stat EEG. Patient moving around too much to obtain MRI at this time. His urine tox screen was negative. He was positive for alcohol. Patient nonverbal. His involuntary movements get exaggerated on stimulation. He was reportedly completely normal yesterday. 08/10: Patient had an episode of emesis last night followed by labored breathing. He continued to have involuntary movements. He was intubated and placed on mechanical ventilation. Currently sedated with propofol, orally intubated on mechanical ventilation. Awaiting MRI brain and C-spine. EEG done yesterday did not show any seizure activity. 08/11: Sedated, orally intubated on mechanical ventilation. MRI brain unremarkable. MRI C-spine with hairline C6 fracture with no displacement. 08/12: Remains sedated, orally intubated on mechanical ventilation. Reintubated yesterday for significant hypoxia and respiratory distress with O2 sats dropping to the 70s despite nonrebreather facemask. CT pulmonary angiogram was negative for PE and showed bilateral infiltrates at the bases. 08/13: Remains sedated, orally intubated on mechanical ventilation. On propofol /fentanyl GTT. Starting tube feeds 08/14: T-max 99.4. Currently 98.3. Scheduled for IR for lumbar puncture today. Patient acute injury. Patient is on vancomycin, acyclovir and did receive IV contrast recently. Renal ultrasound ordered. Urine eosinophils, sodium and creatinine ordered. Arousable and does follow commands on the ventilator. Breakthrough agitation/involuntary systemic movements noted 08/15: Plan for lumbar puncture today. Will likely try sedation vacation overnight. See 4 mg of midazolam overnight due to agitation. Appears comfortable. Intermittently follows commands. 08/16: Lumbar puncture from yesterday accomplished. We will try sedation vacation again today and tried on dexmedetomidine drip. Rash is much improved. Discontinued lacosamide possible source of rash. Remains leukopenic and elevated eosinophils. 08/17: Low-grade fevers overnight. Blood cultures x2, sputum performed. Will start on piperacillin/tazobactam vancomycin. Extubated today. Tolerated about 2 hours but became hypoxic on 100% nonrebreather and tachypneic. Intubated with axial traction. Will need tracheostomy has failed extubation x2 08/18: T-max 100.1. Failed extubation requiring reintubation. Tracheostomy planned for 10 AM today. 08/19: Afebrile overnight. Chest x-ray following tracheostomy demonstrates tube in good position safely above the tory. Basilar infiltrates persist but clearing. On spontaneous breathing trial earlier today he had apneic episodes. With no sedation he becomes extremely agitated however. SUBJECTIVE: 08/20: Percutaneous gastrostomy tube plan for today. Very agitated. Remains on clevidipine drip. Objective Vital Signs / I&O: Vital Signs 08/19/18 09:30 08/19/18 09:45 08/19/18 10:00 Temperature Pulse Rate 62 63 79 Respiratory Rate 17 17 24 Blood Pressure 156/68 H 161/81 H 155/79 H Pulse Oximetry 99 96 92 L 08/19/18 10:15 08/19/18 10:30 08/19/18 10:45 Temperature Pulse Rate 79 68 69 Respiratory Rate 15 21 18 Blood Pressure 169/96 H 152/67 H 155/73 H Pulse Oximetry 95 97 99 08/19/18 11:00 08/19/18 11:15 08/19/18 11:30 Temperature Pulse Rate 71 63 63 Respiratory Rate 18 17 17 Blood Pressure 146/66 H 149/67 H 150/67 H Pulse Oximetry 98 98 99 08/19/18 11:45 08/19/18 12:00 08/19/18 12:37 Temperature 98.5 F Pulse Rate 83 70 Respiratory Rate 26 H 16 16 Blood Pressure 161/73 H 158/72 H Pulse Oximetry 92 L 94 L 100 08/19/18 12:40 08/19/18 13:00 08/19/18 13:15 Temperature Pulse Rate 69 67 79 Respiratory Rate 16 13 18 Blood Pressure 148/67 H 158/70 H Pulse Oximetry 96 94 L 08/19/18 13:30 08/19/18 13:45 08/19/18 14:00 Temperature Pulse Rate 70 68 67 Respiratory Rate 13 14 12 Blood Pressure 144/63 H 145/63 H 140/64 Pulse Oximetry 92 L 94 L 94 L 08/19/18 14:15 08/19/18 14:30 08/19/18 14:45 Temperature Pulse Rate 67 67 89 Respiratory Rate 14 14 26 H Blood Pressure 143/68 H 141/70 H 177/81 H Pulse Oximetry 93 L 93 L 93 L 08/19/18 15:00 08/19/18 15:15 08/19/18 15:30 Temperature Pulse Rate 70 65 64 Respiratory Rate 15 13 13 Blood Pressure 157/70 H 148/60 H 137/61 Pulse Oximetry 96 93 L 93 L 08/19/18 15:45 08/19/18 16:00 08/19/18 16:02 Temperature 98.8 F Pulse Rate 62 69 69 Respiratory Rate 14 14 14 Blood Pressure 136/60 152/70 H Pulse Oximetry 95 95 96 08/19/18 16:15 08/19/18 16:30 08/19/18 16:45 Temperature Pulse Rate 64 63 63 Respiratory Rate 13 16 13 Blood Pressure 140/60 134/61 134/62 Pulse Oximetry 93 L 91 L 94 L 08/19/18 17:00 08/19/18 17:15 08/19/18 17:30 Temperature Pulse Rate 61 60 64 Respiratory Rate 13 12 13 Blood Pressure 134/62 133/63 142/67 H Pulse Oximetry 94 L 94 L 94 L 08/19/18 17:45 08/19/18 18:00 08/19/18 18:15 Temperature Pulse Rate 61 76 65 Respiratory Rate 13 27 H 12 Blood Pressure 141/64 H 147/73 H 144/66 H Pulse Oximetry 95 94 L 94 L 08/19/18 18:30 08/19/18 18:45 08/19/18 19:00 Temperature Pulse Rate 63 68 64 Respiratory Rate 12 12 14 Blood Pressure 146/72 H 139/68 144/65 H Pulse Oximetry 92 L 94 L 94 L 08/19/18 19:15 08/19/18 19:30 08/19/18 19:45 Temperature Pulse Rate 69 85 79 Respiratory Rate 13 26 H 31 H Blood Pressure 142/67 H 178/83 H 157/71 H Pulse Oximetry 94 L 96 96 08/19/18 20:00 08/19/18 20:05 08/19/18 20:15 Temperature 99.0 F Pulse Rate 66 66 68 Respiratory Rate 12 21 12 Blood Pressure 148/66 H 144/65 H Pulse Oximetry 94 L 95 93 L 08/19/18 20:30 08/19/18 20:45 08/19/18 21:00 Temperature Pulse Rate 68 66 65 Respiratory Rate 12 12 12 Blood Pressure 152/69 H 150/68 H 149/67 H Pulse Oximetry 92 L 93 L 93 L 08/19/18 21:15 08/19/18 21:30 08/19/18 21:45 Temperature Pulse Rate 65 65 71 Respiratory Rate 12 11 L 27 H Blood Pressure 153/69 H 155/70 H 156/71 H Pulse Oximetry 93 L 93 L 94 L 08/19/18 22:00 08/19/18 22:15 08/19/18 22:30 Temperature Pulse Rate 67 65 65 Respiratory Rate 14 12 12 Blood Pressure 157/72 H 159/71 H 156/72 H Pulse Oximetry 93 L 93 L 93 L 08/19/18 22:45 08/19/18 23:00 08/19/18 23:15 Temperature Pulse Rate 70 65 71 Respiratory Rate 18 12 15 Blood Pressure 159/72 H 164/75 H 155/72 H Pulse Oximetry 93 L 95 96 08/19/18 23:30 08/19/18 23:45 08/20/18 00:00 Temperature Pulse Rate 68 66 65 Respiratory Rate 22 13 13 Blood Pressure 155/72 H 161/81 H 156/66 H Pulse Oximetry 96 94 L 93 L 08/20/18 00:08 08/20/18 00:15 08/20/18 00:30 Temperature Pulse Rate 67 66 67 Respiratory Rate 15 14 18 Blood Pressure 161/72 H 166/76 H Pulse Oximetry 94 L 94 L 93 L 08/20/18 00:45 08/20/18 01:00 08/20/18 01:15 Temperature Pulse Rate 67 70 70 Respiratory Rate 12 18 13 Blood Pressure 154/78 H 166/74 H 169/77 H Pulse Oximetry 100 95 95 08/20/18 01:30 08/20/18 01:45 08/20/18 02:00 Temperature Pulse Rate 68 68 66 Respiratory Rate 16 12 12 Blood Pressure 166/78 H 162/69 H 170/77 H Pulse Oximetry 94 L 92 L 94 L 08/20/18 02:15 08/20/18 02:30 08/20/18 02:45 Temperature Pulse Rate 68 67 73 Respiratory Rate 18 14 28 H Blood Pressure 158/70 H 144/62 H 182/74 H Pulse Oximetry 93 L 94 L 93 L 08/20/18 03:00 08/20/18 03:15 08/20/18 03:30 Temperature Pulse Rate 71 74 72 Respiratory Rate 17 22 14 Blood Pressure 147/63 H 155/72 H Pulse Oximetry 91 L 95 94 L 08/20/18 03:45 08/20/18 04:00 08/20/18 04:07 Temperature 98.8 F Pulse Rate 75 73 74 Respiratory Rate 25 H 18 16 Blood Pressure 163/72 H 141/92 H Pulse Oximetry 94 L 95 95 08/20/18 04:15 08/20/18 04:30 08/20/18 04:45 Temperature Pulse Rate 78 75 69 Respiratory Rate 41 H 33 H 15 Blood Pressure 162/77 H 172/83 H 168/72 H Pulse Oximetry 93 L 93 L 92 L 08/20/18 05:00 08/20/18 05:15 08/20/18 05:30 Temperature Pulse Rate 70 70 69 Respiratory Rate 16 21 18 Blood Pressure 159/70 H 170/80 H 175/83 H Pulse Oximetry 94 L 93 L 93 L 08/20/18 05:45 08/20/18 06:00 08/20/18 06:15 Temperature Pulse Rate 68 74 78 Respiratory Rate 20 29 H 40 H Blood Pressure 181/86 H 177/79 H 173/91 H Pulse Oximetry 94 L 95 93 L 08/20/18 06:30 08/20/18 06:45 08/20/18 07:00 Temperature Pulse Rate 68 69 70 Respiratory Rate 15 17 18 Blood Pressure 171/80 H 167/74 H 160/70 H Pulse Oximetry 94 L 95 95 08/20/18 07:15 08/20/18 07:30 08/20/18 07:45 Temperature Pulse Rate 71 70 83 Respiratory Rate 21 22 36 H Blood Pressure 170/78 H 175/79 H 189/74 H Pulse Oximetry 93 L 94 L 92 L 08/20/18 08:24 Temperature Pulse Rate 67 Respiratory Rate 15 Blood Pressure Pulse Oximetry 96 Intake & Output 08/19/18 08/20/18 08/20/18 18:59 06:59 18:59 Intake Total 2686.2 / 2686.2 1050 / 1050 100 / 100 Output Total 700 / 700 2300 / 2300 Balance 1986.2 / 1986.2 -1250 / -1250 100 / 100 Weight 99.8 kg Intake: IV 1926.2 / 1926.2 1050 / 1050 100 / 100 Cleviprex Inj 25 mg In 50 ml @ 350 / 350 400 / 400 50 / 50 1 MG/HR 2 mls/hr IV.CONT TITRATE PRN Rx#:[id number] Precedex Inj 200 MCG In NS Inj 300 / 300 50 / 50 48 ML @ 0.2 MCG/KG/HR 5.18 mls/ hr IV.CONT TITRATE PRN Rx#: [id number] Versed Inj 100 mg In 100 ml @ 2 100 / 100 MG/HR 2 mls/hr IV.CONT TITRATE PRN Rx#:[id number] Azactam Inj 2 GM In NS Inj 100 200 / 200 100 / 100 ML @ 200 mls/hr IV.SIG Q8H SATYA Rx#:[id number] MVI-12 Inj 10 ML Thiamine Inj 511.2 / 511.2 100 MG Folvite Inj 1 MG In D5W- 1/2 NS Inj 500 ML @ 127.8 mls/ hr IV.SIG DAILY SATYA Rx#: [id number] Vancomycin Inj 1,500 MG In NS 515 / 515 Inj 500 ML @ 250 mls/hr IV.SIG Q24H SATYA Rx#:[id number] fentaNYL 10 mcg/mL Premix Drip 250 / 250 250 / 250 2,500 mcg In 250 ml @ 50 MCG/HR 5 mls/hr IV.SIG TITRATE PRN Rx #:[id number] Tube Feeding 320 / 320 Tube Irrigant 240 / 240 Water Bolus Amount 200 / 200 Output: Urine Amount (Catheter) 700 / 700 2300 / 2300 Indwelling Urethral Catheter 700 / 700 2300 / 2300 Other: Date of Last Bowel Movement 08/19/18 08/20/18 # Bowel Movements 1 # Incontinent Bowel Movements 1 Result Diagrams: 08/20/18 03:30 08/20/18 03:30 Other Results: Microbiology 08/17/18 00:30 Sputum - Endotracheal Gram Stain - Final 08/17/18 00:30 Sputum - Endotracheal Sputum Culture - Final No growth in 48 hours 08/18/18 11:45 Blood - Peripheral Aerobic Blood Culture - Preliminary No growth in 1 day 08/18/18 11:45 Blood - Peripheral Anaerobic Blood Culture - Preliminary No growth in 1 day 08/18/18 11:52 Blood - Peripheral Aerobic Blood Culture - Preliminary No growth in 1 day 08/18/18 11:52 Blood - Peripheral Anaerobic Blood Culture - Preliminary No growth in 1 day 08/17/18 03:20 Blood - Peripheral Aerobic Blood Culture - Preliminary No growth in 2 days 08/17/18 03:20 Blood - Peripheral Anaerobic Blood Culture - Preliminary No growth in 2 days 08/17/18 01:15 Blood - Peripheral Aerobic Blood Culture - Preliminary Staphylococcus epidermidis 08/17/18 01:15 Blood - Peripheral Anaerobic Blood Culture - Preliminary No growth in 2 days 08/11/18 14:29 Blood - Peripheral Aerobic Blood Culture - Final No growth in 5 days 08/11/18 14:29 Blood - Peripheral Anaerobic Blood Culture - Final No growth in 5 days 08/11/18 14:24 Blood - Peripheral Aerobic Blood Culture - Final No growth in 5 days 08/11/18 14:24 Blood - Peripheral Anaerobic Blood Culture - Final No growth in 5 days 08/11/18 15:00 Sputum - Endotracheal Gram Stain - Final 08/11/18 15:00 Sputum - Endotracheal Sputum Culture - Final Heavy growth normal respiratory sherman 08/09/18 11:00 Catheterized Urine Urine Culture - Final No growth in 48 hours Imaging: Head CT 08/09/18 09:20 CONCLUSION: 1. No acute intracranial abnormality is seen. 2. Mild widening of the cortical sulci which could suggest some atrophy. Report was called by [Dr. Dutton to at 9:49 AM. ] Chest X-Ray 08/09/18 09:21 CONCLUSION: No acute cardiopulmonary process. Cervical Spine CT 08/09/18 09:23 CONCLUSION: 1. Fracturing through anterior flowing spurs at the anterior C6 level with the fracture extending into the anterior inferior left lateral aspect of the C6 vertebral body. Empty displacement is not seen. No other possible fractures are seen. 2. 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 3. Degenerative change. Head CTA 08/09/18 09:28 CONCLUSION: Negative CTA. Report was called by [Dr. Dutton to Dr. Faustin. A message was left on the voicemail. ] Neck CTA 08/09/18 09:28 CONCLUSION: Negative CTA of the neck. Cervical Spine MRI 08/10/18 00:00 CONCLUSION: 1. Fracturing through the prominent flowing spurs at the C6 level and extending into the anterior inferior aspect of C6 vertebral body without displacement. Minimal edema seen around the fracture site. 2. Prominent spurring extending from C4 to into the thoracic spine consistent with DISH. 3. Mild central disc protrusion at the C3-C4 level. 4. Mild disc protrusion with the apex at the left lateral recess region at the C5-C6 level. 5. Neural foraminal narrowing at the C3-C4 and C5-C6 levels. Chest X-Ray 08/10/18 00:00 CONCLUSION: ET tube in good position. Lungs are grossly clear. Head MRI 08/10/18 00:00 CONCLUSION: 1. No acute intracranial abnormality. 2. Mild atrophy. Lumbar Spine CT 08/10/18 00:00 CONCLUSION: 1. No acute abnormality seen. 2. Prominent spur seen throughout the thoracic and lumbar spine likely from DISH. 3. Mild disc bulges at the L3-L4 and L4-L5 levels. 4. Lower lumbar facet hypertrophy. Thoracic Spine CT 08/10/18 00:00 CONCLUSION: 1. No fracture is seen. 2. Prominent spurring seen throughout the thoracic spine but be secondary to DISH. 3. Subpleural areas of consolidation or atelectasis at the posterior lower lungs. Chest CTA 08/11/18 00:00 CONCLUSION: 1. No evidence of any pulmonary embolism. 2. There are bilateral infiltrates predominantly in the posterior mid to lower lung villarreal. 3. 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 Chest X-Ray 08/11/18 13:29 CONCLUSION: Increasing bibasal infiltrates. Venous Doppler Study 08/12/18 00:00 CONCLUSION: 1. The study is negative for bilateral lower extremity deep venous thrombosis. Chest X-Ray 08/13/18 10:17 CONCLUSION: Mild improvement in the bibasilar pulmonary infiltrates compared to the prior exam. Venous Doppler Study 08/14/18 00:00 CONCLUSION: 1. Occlusive and nonocclusive thrombus within the bilateral cephalic veins. Abdomen/Bladder Ultrasound 08/14/18 07:24 CONCLUSION: 1. Mild prominence of the right collecting system suggestive of some mild hydronephrosis. 2. The left kidney is unremarkable. 3. The urinary bladder appears to be distended with a volume of 1554 mL. Lumbar Puncture Fluoroscopy 08/15/18 12:27 CONCLUSION: 1. Uncomplicated fluoroscopically guided lumbar puncture. Chest X-Ray 08/16/18 06:00 CONCLUSION: Modest worsening parenchymal consolidation and small effusions at each base. Venous Doppler Study 08/17/18 00:00 CONCLUSION: 1. Occlusive thrombus of the cephalic veins bilaterally. No other venous thrombosis. Chest X-Ray 08/17/18 09:51 CONCLUSION: Satisfactory position of endotracheal and nasogastric tubes Persistent significant mid lung and basilar opacity without significant improvement Chest X-Ray 08/18/18 10:46 CONCLUSION: Trach tube in good position. There is no pneumothorax Objective Remarks: GENERAL: 58-year-old male on mechanical ventilation via tracheostomy SKIN: Warm and dry. Continued diffuse maculopapular rash blanchable. Involving face, thorax and lower extremities improved. HEAD: Atraumatic. Normocephalic. EYES: Pupils equal and round. No scleral icterus. No injection or drainage. ENT: No nasal bleeding or discharge. Mucous membranes pink and moist. NECK: Trachea midline. Tracheostomy site clean and dry, tube well secured. CARDIOVASCULAR: Regular rate and rhythm. S1, S2. No S4. No murmur, rub. No JVD. RESPIRATORY: No accessory muscle use. Persistent coarse crackles in the bases. Plentiful mobile secretions. GASTROINTESTINAL: Abdomen soft, non-tender, nondistended. Hypoactive bowel sounds are appreciated MUSCULOSKELETAL: Extremities without significant peripheral edema. No obvious deformities. NEUROLOGICAL: Remains arousable on the ventilator, opens eyes but does not track. Moving all 4 extremities spontaneously. Assessment and Plan - Assessment and Plan Plan: Neuro/Psych: Acute toxic metabolic encephalopathy Involuntary movements -EEG 08/09- for epileptiform activity Anterior C6 fracture -[place] J collar times 6 weeks EtOH abuse/withdrawal. Level 114 admission Currently on fentanyl drip at 250 william grams an hour and midazolam drip for sedation/analgesia while intubated Dexmedetomidine drip added 08/14 for weaning Follow neuro checks. Neurology neurosurgery consulted. EEG done in ER did not reveal any seizure activity with ongoing involuntary movements. MRI brain unremarkable, MRI C-spine nondisplaced C6 fracture, continue [place] J collar for 6 weeks per neurosurgery. Aspirin placed on hold for lumbar puncture. Okay to resume dIscontinued lacosamide 100 mg IV twice daily secondary to rash Started thiamine/MVI/folic acid daily and history of EtOH abuse Currently on chlordiazepoxide 50 mg mg twice daily. Restart quetiapine 50 mg twice daily Depakene 250 mg twice daily 08/17 for mood stabilization daily Oxycodone 5 mg every 6 hours Neurology started acyclovir IV while awaiting lumbar puncture. This discontinued 08/15 with negative HSV Cardiovascular: Hypertensive emergency Elevated cholesterol/total Elevated HDL Rhabdomyolysis downtrending CPK to 1000 Initially was hypertensive on arrival. Hydralazine and labetalol and clevidipine drip as needed. Continue carvedilol 12.5 mg p.o. twice daily. Added hydralazine 50 mg 3 times daily, isoSorbide dinitrate 10 mg 3 times daily Troponin 0.04 Pulmonary: Acute hypoxic hypercapnic respiratory failure Status post percutaneous tracheostomy 08/[address] Conn Intubated for airway protection and placed on mechanical ventilation following episode of emesis with question of aspiration on 08/10 AM. Extubated 08/17 but reintubated same day [facility] ventilation 16////40 vent bundle, Albuterol/ipratropium aerosols every 4 hours with albuterol aerosols every 2 hours as needed dyspnea tolerated CPAP trial and extubated on 08/11 however about 5 hours following extubation and required reintubation for hypoxic respiratory failure of unclear etiology. CT pulmonary angiogram negative for PE but possible right subclavian thrombus. Check upper extremity Dopplers revealed superficial thrombus Consulted pulmonary for further evaluation of hypoxic respiratory failure X-ray chest in a.m. 08/21 GI/liver: Elevated transaminases downward trending Hypoalbuminemia with moderate protein calorie malnutrition Continue tube feeds with Nepro goal 50 cc an hour and advance to goal as tolerated. Hold due to PEG tube planned for today Famotidine 20 mg daily for GI prophylaxis Docusate sodium/senna 1 tablet twice daily for bowel regimen. Added polyethylene glycol 17 g twice daily and lactulose 30 cc twice daily Negative hepatitis panel FEN/renal/: Acute kidney injury resolving Acute hypernatremia Hypomagnesia Urinary retention with mild bilateral hydronephrosis IV hydration, strict intake output, monitor and replete electrolytes, follow BUN /creatinine. Bicarbonate drip discontinued 08/13. Free water 200 cc every 8 hours Avoid nephrotoxic medications. Continue Goff as needed for urinary retention. ID: 08/15 discontinued vancomycin, piperacillin/tazobactam and acyclovir. Watch for fever/leukocytosis Blood cultures x21 10/10 no growth to date repeat blood cultures 08/17 and sputum pending Sputum 08/11 no growth to date Number puncture with IR today 08/15-negative HSV. Started vancomycin, piperacillin/tazobactam 08/17 3 discontinued Zosyn 08/18 due to rash. Started aztreonam 2 g IV every 8 hours Endocrine: Watch for hyperglycemia, SSI for glycemic control with aspart insulin/low regimen every 6 hours Normal TSH Heme: Macrocytic anemia Documentation of prior possible right subclavian occlusion -negative Doppler Bilateral cephalic occlusive and nonocclusive superficial venous thrombosis Follow CBC. No indication for transfusion of blood products at this time Subcu heparin DVT prophylaxis MSK: Elevated BMI Diffuse idiopathic skeletal hyperostosis drug rash possible DR ESS Weight loss encouraged PT evaluate and treat On IV famotidine, diphenhydramine. Prophylaxis: SCDs. heparin 5000 units subcutaneously every 8 hourly 24 hours post lumbar puncture, famotidine for GI prophylaxis Level 3 follow-up
[2018-08-20] MEDS: Multivitamin Inj 10 ML, Thiamine Inj 100 MG, Folic Acid Inj 1 MG in Dextrose 5%/NaCl 0.... IV.SIG SCH (10:51)
[2018-08-20] MEDS: Dexmedetomidine Inj 1,000 MCG in Sodium Chlor 0.9% Inj 240 ML IV.CONT PRN ×2 (11:20→19:49)
[2018-08-20] MEDS: Vancomycin Inj 1,500 MG in Sodium Chlor 0.9% Inj 500 ML IV.SIG SCH (11:48)
[2018-08-20] MEDS ORDERED: Sodium Phosphate Inj 30 MMOL in Sodium Chlor 0.9% Inj 250 ML IV.SIG PRN ×2 (13:00→13:17)
[2018-08-20] MEDS ORDERED: Potassium Chlor 20 mEq Premix 20 MEQ/100 ML PIGGYBACK IV.SIG PRN ×3 (13:00→13:17)
[2018-08-20] MEDS ORDERED: Potassium Phosphate 500 MG Soluble Tablet PO PRN ×4 (13:00→13:17)
[2018-08-20] MEDS ORDERED: Potassium Chlor 40 mEq Premix 40 MEQ/100 ML PIGGYBACK IV.SIG PRN ×4 (13:00→13:17)
[2018-08-20] MEDS ORDERED: Potassium Chloride 25 MEQ Effervescent Tablet PO PRN (13:00)
[2018-08-20] MEDS ORDERED: Magnesium Sulfate Inj 4 GM in Sodium Chlor 0.9% Inj 92 ML IV.SIG PRN ×2 (13:00→13:17)
[2018-08-20] MEDS ORDERED: Magnesium Sulfate Inj 2 GM in Sodium Chlor 0.9% Inj 96 ML IV.SIG PRN ×2 (13:00→13:17)
[2018-08-20] MEDS ORDERED: Magnesium Oxide 400 MG Tablet PO PRN ×2 (13:00→13:17)
[2018-08-20] MEDS ORDERED: Potassium Phosphate Inj 30 MMOL in Sodium Chlor 0.9% Inj 250 ML IV.SIG PRN ×2 (13:00→13:17)
--- NOTE | 2018-08-20 14:28 | GIPROC ---
[facility] [address] [facility]. 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 TOPICAL ANESTHETIC: CONSENT: The patient understands the risks and benefits of the procedure and understands that these risks include, but are not limited to: sedation, allergic reaction, infection, perforation and/or bleeding. Alternative means of evaluation and treatment include, among others: physical exam, x-rays, and/or surgical intervention. The patient elects to proceed with this endoscopic procedure. medical equipment was checked for proper function. Hand hygiene and appropriate measures for infection prevention was taken. After the risks, benefits and alternatives of the procedure were thoroughly explained, Informed consent was verified, confirmed and timeout was successfully executed by the treatment team. The patient was anesthetized with topical anesthesia and the Pentax EG-[id number] endoscope was introduced through the mouth and advanced to the second portion of the duodenum. Retroflexed views revealed no abnormalities The gastroscope was then slowly withdrawn and removed. ESOPHAGUS: There was LA Class B esophagitis noted. STOMACH: The mucosa of the stomach appeared normal. DUODENUM: The duodenal mucosa appeared normal in the entire duodenum. Stomach distended with air. Spot marked in th LUQ .Site injected with l2% lidocaine. 1 cm incision made . Trocar passed through the incision into gastric lumen.GW passed through the trocar. Snare passed through the scope .GW grabbed with the snare and scope pulled out . 20 F PEG attached to the scope and pulled out of the anterior abdominal wall. Proper placement confirmed with endoscopic view. ADVERSE EVENTS: There were no complications. IMPRESSIONS: 1. There was LA Class B esophagitis noted 2. The mucosa of the stomach appeared normal 3. Normal duodenal mucosa in the entire duodenum 4. Retroflexed views revealed no abnormalities 5. S/P PEG placement RECOMMENDATIONS: Start using PEG tube after 4 hrs PATIENT CONDITION: stable DISPOSITION: Inpatient REPEAT EXAM: Return as needed for EGD Nehemias Sheldon MD eSigned: Nehemias Sheldon MD 08/20/2018 2:28 PM cc: PATIENT NAME: Miah Jamaal E MR#: [id number]
[2018-08-20] MEDS: Gabapentin 100 MG Capsule PO SCH ×2 (14:29→18:27)
[2018-08-20 16:38] LABS: Calcium 8.6 mg/dL (8.5-10.1); Magnesium 1.7 mg/dL (1.5-2.5); Phosphorus 4.2 mg/dL (2.5-4.9); Potassium 3.1 meq/L (3.5-5.1)
[2018-08-20] MEDS: Potassium Chlor 20 mEq Premix 20 MEQ/100 ML PIGGYBACK IV.SIG PRN ×3 (16:58→22:49)
[2018-08-20] MEDS ORDERED: Midazolam Inj 5 MG/ML 1 ML Vial IV.PUSH ONE (18:11)
--- NOTE | 2018-08-20 19:34 | P.CONREH ---
History of Present Illness Service: Physical medicine and rehabilitation Consult date: 08/20/18 Reason for Consult: Comprehensive rehabilitation evaluation Primary Care Provider: UNKNOWN History of Present Illness: Jamaal Dooley is a 58-year-old [id number] male admitted to [facility] 08/09/18 after found down in a friend's garage. Patient was noted to have involuntary jerking movements of both upper and lower extremities as well as his head. He received Ativan IV and was loaded with Keppra. Patient was intubated. Head CT 08/09/18 was negative. Brain MRI 08/10/18 was negative. Neurology consult noted severe hypertension with seizure activity. He was started on IV Vimpat and Cerebyx. EEG was negative for seizure activity. He was evaluated by neurosurgery and found to have C6 anterior fracture. [place] J collar was recommended for 6 weeks. He was extubated 08/17/18 but failed extubation and was reintubated 08/18/18. Tracheostomy was subsequently placed . PEG is planned. Review of Systems unobtainable due to mental status PMFSH - History History Provided By: Friend, Concrete Mason / EMT - Medical / Surgical Hx Neg / Unobtainable Medical Problems Denied: Unable to Obtain - Medical History Medical History: Medical History (Last Reviewed 08/21/18 @ 16:20 by Ketty Foss MD) ETOH abuse HTN (hypertension) - Tobacco History Tobacco Use In Past 30 Days: Yes Smoking Status: Current every day smoker Tobacco Type: Cigarettes - Alcohol History How Often Do You Have a Drink Containing Alcohol: Unable to Obtain - Substance Use History Substance History: Unable to Obtain - Travel History Recent Travel in the [facility] Within the Last 8 Weeks: No Recent Travel Out of the Country Within the Last 8 Weeks: No - Immunization History Tetanus Immunization: Unable to Assess Medications and Allergies Active Medications: Active Medications Acetaminophen (Tylenol) 650 mg PO Q4H PRN PRN Reason: temp > 100F Last Admin: 08/17/18 00:33 Dose: 650 mg Albuterol (Duoneb Neb (Manuela)) 1 ampul NEB Q4HR NEB MANUELA Last Admin: 08/20/18 15:35 Dose: 1 ampul Albuterol (Albuterol Neb (Prn)) 2.5 mg NEB Q2HR NEB PRN PRN Reason: DYSPNEA Amlodipine Besylate (Norvasc) 10 mg PO DAILY MANUELA Last Admin: 08/20/18 11:30 Dose: 5 mg Artificial Tears (Tears Naturale Opth Drops) 1 drop EACH EYE Q8H [facility] Last Admin: 08/20/18 16:57 Dose: 1 drop Aspirin (Aspirin Supp) 300 mg RECTAL DAILY [facility] Last Admin: 08/20/18 16:00 Dose: 300 mg Carvedilol (Coreg) 12.5 mg PO BID [facility] Last Admin: 08/20/18 09:04 Dose: 12.5 mg Chlordiazepoxide (Librium) 50 mg PO BID [facility] Last Admin: 08/20/18 09:04 Dose: 50 mg Chlorhexidine Gluconate (Peridex 0.12% Oral Kit) 15 ml OROPHARYNG BID@0800, 2000 [facility] Last Admin: 08/20/18 09:06 Dose: 15 ml Dextrose (D50w Vial) 50 ml IV.PUSH UNSCH PRN PRN Reason: PER HYPOGLYCEMIA PROTOCOL Diphenhydramine HCl (Benadryl Inj) 25 mg IV.PUSH Q6H [facility] Stop: 08/21/18 08:59 Last Admin: 08/20/18 16:21 Dose: 25 mg Famotidine (Pepcid Pf Inj) 20 mg IV.PUSH Q12HR [facility] Last Admin: 08/20/18 08:59 Dose: 20 mg Flumazenil (Romazecon Inj) 0.2 mg IV.PUSH Q1M PRN PRN Reason: OVERSEDATION Folic Acid (Folic Acid) 1 mg PO DAILY [facility] Last Admin: 08/20/18 09:04 Dose: 1 mg Furosemide (Lasix Inj) 40 mg IV.PUSH BID@0900,1800 [facility] Last Admin: 08/20/18 18:27 Dose: 40 mg Gabapentin (Neurontin) 100 mg PO TID [facility] Last Admin: 08/20/18 18:27 Dose: 100 mg Glucagon (Glucagon Inj) 1 mg OTHER UNSCH PRN PRN Reason: for Hypoglycemia Protocol Heparin Sodium (Porcine) (Heparin Inj) 5,000 units SQ Q8H [facility] Last Admin: 08/19/18 20:16 Dose: 5,000 units Hydralazine HCl (Apresoline Inj) 10 mg IV.PUSH Q1H PRN PRN Reason: SBP >165 Last Admin: 08/20/18 02:03 Dose: 10 mg Hydralazine HCl (Apresoline) 50 mg PO TID [facility] Last Admin: 08/20/18 18:27 Dose: 50 mg Nicardipine HCl 25 mg/ Sodium (Chloride) 250 mls @ 50 mls/hr IV.CONT TITRATE PRN; Protocol PRN Reason: Per Protocol Last Titration: 08/18/18 18:37 Dose: Infused Propofol (Diprivan 1000 Mg/100 Ml Inj) 1,000 mg in 100 mls @ 2.634 mls/hr IV.CONT TITRATE PRN; Protocol PRN Reason: Per Protocol Last Titration: 08/18/18 15:13 Dose: Infused Multivitamins 10 ml/ Thiamine HCl 100 mg/ Folic Acid 1 mg/Dextrose/Sodium Chloride 511.2 mls @ 127.8 mls/hr IV.SIG DAILY [facility] Last Infusion: 08/20/18 15:20 Dose: Infused Fentanyl (Fentanyl 10 Mcg/Ml Premix Drip) 2,500 mcg in 250 mls @ 5 mls/hr IV.SIG TITRATE PRN; Protocol PRN Reason: Per Protocol Last Admin: 08/20/18 18:28 Dose: 200 mcg/hr, 20 mls/hr Midazolam HCl (Versed Inj) 100 mg in 100 mls @ 2 mls/hr IV.CONT TITRATE PRN; Protocol PRN Reason: See protocol Last Titration: 08/20/18 17:59 Dose: 5 mg/hr, 5 mls/hr Aztreonam 2 gm/ Sodium (Chloride) 100 mls @ 200 mls/hr IV.SIG Q8H [facility] Last Infusion: 08/20/18 17:30 Dose: Infused Vancomycin HCl 1,500 mg/ (Sodium Chloride) 515 mls @ 250 mls/hr IV.SIG Q24H [facility] Last Infusion: 08/20/18 14:30 Dose: Infused Clevidipine (Cleviprex Inj) 25 mg in 50 mls @ 2 mls/hr IV.CONT TITRATE PRN; Protocol PRN Reason: Per protocol Last Admin: 08/20/18 18:59 Dose: 15 mg/hr, 30 mls/hr Dexmedetomidine HCl 1,000 mcg/ (Sodium Chloride) 250 mls @ 5.18 mls/hr IV.CONT TITRATE PRN; Protocol PRN Reason: Per Protocol Last Titration: 08/20/18 14:55 Dose: 1.4 mcg/kg/hr, 36.26 mls/hr Magnesium Sulfate 4 gm/ Sodium (Chloride) 100 mls @ 50 mls/hr IV.SIG UNSCH PRN PRN Reason: For Magnesium 0.9 - 1.1 mg/dL Magnesium Sulfate 2 gm/ Sodium (Chloride) 100 mls @ 50 mls/hr IV.SIG UNSCH PRN PRN Reason: For Magnesium 1.2 - 1.6 mg/dL Potassium Chloride (Kcl 40 Meq Premix Inj) 40 meq in 100 mls @ 25 mls/hr IV.SIG Q2H PRN PRN Reason: For Potassium 2.8 - 3.2 mEq/L Potassium Chloride (Kcl 20 Meq Premix Inj) 20 meq in 100 mls @ 50 mls/hr IV.SIG Q2H PRN PRN Reason: For Potassium 3.3 - 3.5 mEq/L Potassium Chloride (Kcl 20 Meq Premix Inj) 20 meq in 100 mls @ 50 mls/hr IV.SIG Q2H PRN PRN Reason: For Potassium 2.8 - 3.2 mEq/L Last Admin: 08/20/18 16:58 Dose: 50 mls/hr Potassium Phosphate 30 mmol/ (Sodium Chloride) 260 mls @ 42 mls/hr IV.SIG UNSCH PRN PRN Reason: SEE LABEL COMMENTS Sodium Phosphate 30 mmol/ (Sodium Chloride) 260 mls @ 42 mls/hr IV.SIG UNSCH PRN PRN Reason: For Phosphorus < 2.5 mg/dL Potassium Chloride (Kcl 40 Meq Premix Inj) 40 meq in 100 mls @ 25 mls/hr IV.SIG UNSCH PRN PRN Reason: For Potassium 3.3 - 3.5 mEq/L Isosorbide Dinitrate (Isordil) 10 mg PO Q8HR [facility] Last Admin: 08/20/18 14:29 Dose: Not Given Labetalol HCl (Trandate Inj) 10 mg IV.PUSH Q1H PRN PRN Reason: Sbp>160, Dbp>90 HR > 65 Last Admin: 08/18/18 01:36 Dose: 10 mg Lactulose (Lactulose Liq) 30 ml PO BID [facility] Last Admin: 08/20/18 09:08 Dose: Not Given Magnesium Oxide (Mag-Ox) 800 mg PO UNSCH PRN PRN Reason: For Magnesium 1.2 - 1.6 mg/dL Miscellaneous Information ([facility] Ordered Lab Info) 0 each OTHER ONCE ONE Stop: 08/21/18 11:46 Miscellaneous Medication () 1 each OROPHARYNG 0000,0400,1200,1600 [facility] Last Admin: 08/20/18 16:57 Dose: 1 each Oxycodone HCl (Roxicodone Intensol Liq) 5 mg PO Q6H [facility] Last Admin: 08/20/18 16:57 Dose: 5 mg Pharmacy Profile Note (Vancomycin Consult Pharmacy) 1 each OTHER UNSCH PRN PRN Reason: Pharmacy to dose Potassium Bicarb/Potassium Chloride (K-Lyte Cl Eff) 50 meq PO UNSCH PRN PRN Reason: For Potassium 3.3 - 3.5 mEq/L Potassium Phosphate (K-Phos Original) 2,000 mg PO Q4H PRN PRN Reason: Phosphorus Less Than 2.5 mg/dL Potassium Phosphate (K-Phos Original) 2,000 mg PO UNSCH PRN PRN Reason: SEE LABEL COMMENTS Quetiapine Fumarate (Seroquel) 50 mg PO BID [facility] Sodium Chloride (Ns Flush) 2 ml IV.FLUSH BID [facility] Last Admin: 08/20/18 09:09 Dose: 2 ml Sodium Chloride (Ns Flush) 2 ml IV.FLUSH PRN PRN PRN Reason: FLUSH AFTER USING IV ACCESS Sterile Water (Free Water) 200 ml G-TUBE Q8HR [facility] Last Admin: 08/20/18 14:29 Dose: Not Given Thiamine HCl (Vitamin B1) 100 mg PO BID [facility] Last Admin: 08/20/18 09:05 Dose: 100 mg Valproic Acid (Depakene) 250 mg PO BID [facility] Last Admin: 08/20/18 09:08 Dose: Not Given Allergies Allergy/AdvReac Type Severity Reaction Status Date / Time No Known Allergies Allergy Verified 08/09/18 09:20 Home Medications Medication Instructions Recorded Confirmed Type Unable to Obtain Home Meds 08/09/18 08/09/18 History Exam - Physical Examination Vital Signs / I&O: Vital Signs 08/19/18 19:30 08/19/18 19:45 08/19/18 20:00 Temperature 99.0 F Pulse Rate 85 79 66 Respiratory Rate 26 H 31 H 12 Blood Pressure 178/83 H 157/71 H 148/66 H Pulse Oximetry 96 96 94 L 08/19/18 20:05 08/19/18 20:15 08/19/18 20:30 Temperature Pulse Rate 66 68 68 Respiratory Rate 21 12 12 Blood Pressure 144/65 H 152/69 H Pulse Oximetry 95 93 L 92 L 08/19/18 20:45 08/19/18 21:00 08/19/18 21:15 Temperature Pulse Rate 66 65 65 Respiratory Rate 12 12 12 Blood Pressure 150/68 H 149/67 H 153/69 H Pulse Oximetry 93 L 93 L 93 L 08/19/18 21:30 08/19/18 21:45 08/19/18 22:00 Temperature Pulse Rate 65 71 67 Respiratory Rate 11 L 27 H 14 Blood Pressure 155/70 H 156/71 H 157/72 H Pulse Oximetry 93 L 94 L 93 L 08/19/18 22:15 08/19/18 22:30 08/19/18 22:45 Temperature Pulse Rate 65 65 70 Respiratory Rate 12 12 18 Blood Pressure 159/71 H 156/72 H 159/72 H Pulse Oximetry 93 L 93 L 93 L 08/19/18 23:00 08/19/18 23:15 08/19/18 23:30 Temperature Pulse Rate 65 71 68 Respiratory Rate 12 15 22 Blood Pressure 164/75 H 155/72 H 155/72 H Pulse Oximetry 95 96 96 08/19/18 23:45 08/20/18 00:00 08/20/18 00:08 Temperature Pulse Rate 66 65 67 Respiratory Rate 13 13 15 Blood Pressure 161/81 H 156/66 H Pulse Oximetry 94 L 93 L 94 L 08/20/18 00:15 08/20/18 00:30 08/20/18 00:45 Temperature Pulse Rate 66 67 67 Respiratory Rate 14 18 12 Blood Pressure 161/72 H 166/76 H 154/78 H Pulse Oximetry 94 L 93 L 100 08/20/18 01:00 08/20/18 01:15 08/20/18 01:30 Temperature Pulse Rate 70 70 68 Respiratory Rate 18 13 16 Blood Pressure 166/74 H 169/77 H 166/78 H Pulse Oximetry 95 95 94 L 08/20/18 01:45 08/20/18 02:00 08/20/18 02:15 Temperature Pulse Rate 68 66 68 Respiratory Rate 12 12 18 Blood Pressure 162/69 H 170/77 H 158/70 H Pulse Oximetry 92 L 94 L 93 L 08/20/18 02:30 08/20/18 02:45 08/20/18 03:00 Temperature Pulse Rate 67 73 71 Respiratory Rate 14 28 H 17 Blood Pressure 144/62 H 182/74 H Pulse Oximetry 94 L 93 L 91 L 08/20/18 03:15 08/20/18 03:30 08/20/18 03:45 Temperature Pulse Rate 74 72 75 Respiratory Rate 22 14 25 H Blood Pressure 147/63 H 155/72 H 163/72 H Pulse Oximetry 95 94 L 94 L 08/20/18 04:00 08/20/18 04:07 08/20/18 04:15 Temperature 98.8 F Pulse Rate 73 74 78 Respiratory Rate 18 16 41 H Blood Pressure 141/92 H 162/77 H Pulse Oximetry 95 95 93 L 08/20/18 04:30 08/20/18 04:45 08/20/18 05:00 Temperature Pulse Rate 75 69 70 Respiratory Rate 33 H 15 16 Blood Pressure 172/83 H 168/72 H 159/70 H Pulse Oximetry 93 L 92 L 94 L 08/20/18 05:15 08/20/18 05:30 08/20/18 05:45 Temperature Pulse Rate 70 69 68 Respiratory Rate 21 18 20 Blood Pressure 170/80 H 175/83 H 181/86 H Pulse Oximetry 93 L 93 L 94 L 08/20/18 06:00 08/20/18 06:15 08/20/18 06:30 Temperature Pulse Rate 74 78 68 Respiratory Rate 29 H 40 H 15 Blood Pressure 177/79 H 173/91 H 171/80 H Pulse Oximetry 95 93 L 94 L 08/20/18 06:45 08/20/18 07:00 08/20/18 07:15 Temperature Pulse Rate 69 70 71 Respiratory Rate 17 18 21 Blood Pressure 167/74 H 160/70 H 170/78 H Pulse Oximetry 95 95 93 L 08/20/18 07:30 08/20/18 07:45 08/20/18 08:00 Temperature 98.6 F Pulse Rate 70 83 66 Respiratory Rate 22 36 H 16 Blood Pressure 175/79 H 189/74 H 184/81 H Pulse Oximetry 94 L 92 L 92 L 08/20/18 08:15 08/20/18 08:24 08/20/18 08:27 Temperature Pulse Rate 68 67 70 Respiratory Rate 17 15 36 H Blood Pressure 206/93 H 182/82 H Pulse Oximetry 94 L 96 95 08/20/18 08:30 08/20/18 08:45 08/20/18 09:00 Temperature Pulse Rate 69 69 80 Respiratory Rate 19 17 28 H Blood Pressure 173/90 H 175/92 H 143/70 H Pulse Oximetry 96 97 94 L 08/20/18 09:15 08/20/18 09:30 08/20/18 09:45 Temperature Pulse Rate 73 71 69 Respiratory Rate 22 27 H 16 Blood Pressure 145/73 H 144/70 H 126/60 Pulse Oximetry 94 L 95 95 08/20/18 10:00 08/20/18 10:15 08/20/18 10:30 Temperature Pulse Rate 95 H 67 66 Respiratory Rate 32 H 12 16 Blood Pressure 165/82 H 159/77 H 162/81 H Pulse Oximetry 94 L 98 97 08/20/18 10:45 08/20/18 11:00 08/20/18 11:21 Temperature Pulse Rate 65 68 Respiratory Rate 11 L 19 14 Blood Pressure 169/88 H 125/56 L Pulse Oximetry 98 94 L 08/20/18 11:58 08/20/18 15:35 Temperature Pulse Rate 66 64 Respiratory Rate 14 24 Blood Pressure Pulse Oximetry 94 L 98 Intake & Output 08/20/18 08/20/18 08/21/18 06:59 18:59 06:59 Intake Total 1050 / 1050 2076.2 / 2076.2 Output Total 2300 / 2300 6300 / 6300 Balance -1250 / -1250 -4223.8 / -4223.8 Weight 99.8 kg Intake: IV 1050 / 1050 2026.2 / 2026.2 Cleviprex Inj 25 mg In 50 ml @ 400 / 400 350 / 350 1 MG/HR 2 mls/hr IV.CONT TITRATE PRN Rx#:[id number] Precedex Inj 200 MCG In NS Inj 300 / 300 100 / 100 48 ML @ 0.2 MCG/KG/HR 5.18 mls/ hr IV.CONT TITRATE PRN Rx#: [id number] Azactam Inj 2 GM In NS Inj 100 100 / 100 200 / 200 ML @ 200 mls/hr IV.SIG Q8H [facility] Rx#:[id number] MVI-12 Inj 10 ML Thiamine Inj 511.2 / 511.2 100 MG Folvite Inj 1 MG In D5W- 1/2 NS Inj 500 ML @ 127.8 mls/ hr IV.SIG DAILY [facility] Rx#: [id number] Vancomycin Inj 1,500 MG In NS 515 / 515 Inj 500 ML @ 250 mls/hr IV.SIG Q24H [facility] Rx#:[id number] Ancef Inj 1 GM In NS Inj 100 ML 100 / 100 @ 200 mls/hr IV.SIG ONCE ONE Rx#:[id number] fentaNYL 10 mcg/mL Premix Drip 250 / 250 250 / 250 2,500 mcg In 250 ml @ 50 MCG/HR 5 mls/hr IV.SIG TITRATE PRN Rx #:[id number] Anesthesia Amount 50 / 50 Output: Urine Amount (Catheter) 2300 / 2300 6300 / 6300 Indwelling Urethral Catheter 2300 / 2300 6300 / 6300 Gastric Drainage 0 / 0 Left Upper Quadrant 0 / 0 Other: Date of Last Bowel Movement 08/20/18 08/20/18 # Bowel Movements 1 6 Intake & Output 08/18/18 08/19/18 08/20/18 08/21/18 06:59 06:59 06:59 06:59 Intake Total 3282.2 / 3282.2 4984.2 / 4984.2 3736.2 / 3736.2 2076.2 / 2076.2 Output Total 2069 / 2070 5000 / 5000 3000 / 3000 6300 / 6300 Balance 1212.2 / 1212.2 -15.8 / -15.8 736.2 / 736.2 -4223.8 / -4223.8 Weight 103.6 kg 103.6 kg 99.8 kg General: Sedated, No acute distress, Other (Trach in place on vent) Respiratory: Non-labored respirations, BS equal, Coarse breath sounds Gastrointestinal: Positive bowel sounds, Non-distended, Non-tender Date of Last Bowel Movement: 08/20/18 Cardiovascular: Normal rate Skin: No rash Musculoskeletal: ROM (Within functional limits) - Neurologic Orientation: unable to assess: Self, Place, Time, Situation Neurologic: Pupils (PERRLA), EOM (Not focusing or tracking to voice), Other ( Per nursing off sedation patient moves upper and lower extremities with some upper extremity weakness noted) Sensory: Unable to assess DTRs: Abnormal (1+ upper extremities; 2+ lower extremities) Babinski: Negative Clonus: Negative Results - Labs CBC & Chem 7: 08/21/18 03:14 08/21/18 11:53 Labs: Laboratory Results - last 24 hr 08/20/18 08/20/18 08/20/18 03:30 03:30 03:30 WBC 8.6 RBC 3.29 L Hgb 10.7 L Hct 30.4 L MCV 92.3 MCH 32.6 MCHC 35.3 RDW 14.0 Plt Count 441 D MPV 7.7 Neut % (Auto) 71.8 H Lymph % (Auto) 20.5 [place] % (Auto) 5.4 Eos % (Auto) 1.5 Baso % (Auto) 0.8 Neut # (Auto) 6.2 Lymph # (Auto) 1.8 [place] # (Auto) 0.5 Eos # (Auto) 0.1 Baso # (Auto) 0.1 WBC Differential . Differential Comment Auto diff final Sodium 146 H Potassium 3.1 L Chloride 109 H Carbon Dioxide 28.7 Anion Gap 8 BUN 18 Creatinine 0.97 Estimated GFR 80 L Random Glucose 99 Calcium 8.7 Phosphorus Magnesium Ammonia 11 08/20/18 15:42 WBC RBC Hgb Hct MCV MCH MCHC RDW Plt Count MPV Neut % (Auto) Lymph % (Auto) [place] % (Auto) Eos % (Auto) Baso % (Auto) Neut # (Auto) Lymph # (Auto) [place] # (Auto) Eos # (Auto) Baso # (Auto) WBC Differential Differential Comment Sodium 144 Potassium 3.1 L Chloride 107 Carbon Dioxide 29.0 Anion Gap 8 BUN 15 Creatinine 0.94 Estimated GFR 83 L Random Glucose 98 Calcium 8.6 Phosphorus 4.2 Magnesium 1.7 Ammonia Assessment and Plan (1) Closed C6 fracture Status: Acute Code(s): S12.500A - Unspecified displaced fracture of sixth cervical vertebra, initial encounter for closed fracture (2) Altered mental status Status: Acute Code(s): R41.82 - Altered mental status, unspecified - Plan Assessment: 1. Encephalopathy/change in mental status 2. C6 fracture currently maintained in cervical collar Recommendations: 1. PT providing ROM and max assist for bed mobility. Continue to mobilize as tolerated 2. OT addressing ROM and progress to ADL's 3. PEG planned 4. Continue to reposition q 2 hours and monitor skin 5. On SQ Heparin for VTE prophylaxis 6. Case management addressing discharge planning. Will follow regarding level of care 7. Will follow while hospitalized and at discharge as appropriate Thank you for this consult.
[2018-08-20] MEDS: QUEtiapine 25 MG Tablet PO SCH (20:51)
[2018-08-20] MEDS: Midazolam 100 MG/100 ML Inj 100 MG/100 ML BAG IV.CONT PRN (23:55)
[2018-08-21] MEDS: Potassium Chlor 20 mEq Premix 20 MEQ/100 ML PIGGYBACK IV.SIG PRN ×5 (01:03→20:12)
[2018-08-21] MEDS: Artificial Tears Opth Drops 15 ML Bottle EACH EYE SCH ×4 (01:07→16:59)
[2018-08-21] MEDS: Aztreonam Inj 2 GM in Sodium Chloride 0.9% Inj 100 ML IV.SIG SCH ×3 (01:07→17:57)
[2018-08-21] MEDS: Clevidipine Inj 25 MG/50 ML VIAL IV.CONT PRN ×10 (01:28→22:28)
[2018-08-21] MEDS: Dexmedetomidine Inj 1,000 MCG in Sodium Chlor 0.9% Inj 240 ML IV.CONT PRN ×3 (02:36→22:29)
[2018-08-21] MEDS: Oral Hygiene Kit OROPHARYNG SCH ×3 (03:17→16:59)
[2018-08-21 03:44] LABS: Baso % (Auto) 0.7 % (0.0-2.0); Eos # (Auto) 0.1 th/mm3 (0.0-0.4); Eos % (Auto) 2.3 % (0.0-4.0); Hematocrit 30.2 % (39.0-51.0); Hemoglobin 10.5 gm/dL (13.0-17.0); Lymph # (Auto) 1.1 th/mm3 (1.0-4.8); Lymph % (Auto) 16.4 % (9.0-44.0); Mean Corpuscular HGB Conc 34.6 % (32.0-36.0); Mean Corpuscular Hemoglobin 32.1 pg (27.0-34.0); Mean Platelet Volume 7.4 fL (7.0-11.0); Mono # (Auto) 0.4 th/mm3 (0.0-0.9); Mono % (Auto) 5.9 % (0.0-8.0); Neut # (Auto) 4.8 th/mm3 (1.8-7.7); Neut % (Auto) 74.7 % (16.0-70.0); Platelet Count 459 th/mm3 (150-450); Red Blood Count 3.25 mil/mm3 (4.50-5.90); Red Cell Distribution Width 14.2 % (11.6-17.2); White Blood Count 6.5 th/mm3 (4.0-11.0)
--- NOTE | 2018-08-21 04:22 | XR ---
EXAM DATE: 08/21/2018 4:17 AM EST AGE/SEX: 58 years / Male INDICATIONS: Shortness of breath. CLINICAL DATA: This is the patient's subsequent encounter. Patient reports that signs and symptoms h ave been present for 2 weeks and indicates a pain score of Nonresponsive. MEDICAL/SURGICAL HISTORY: None. None. COMPARISON: [facility] [place] 1[place] SINGLE AP, 08/18/2018. . FINDINGS: This tracheostomy tube in place. The heart size is normal. This increased density at the bases with s ilhouetting the hemidiaphragms. The upper lungs are relatively clear. CONCLUSION: Bibasilar areas of consolidation or atelectasis. Some degree of effusions may be present. Electronically signed by: Azam Dutton MD Board Certified Radiologist 08/21/2018 4:21 AM EST
[2018-08-21] MEDS: fentaNYL 10 mcg/mL Premix Drip 2,500 MCG/250 ML BAG IV.SIG PRN ×2 (07:02→20:24)
[2018-08-21] MEDS: Chlorhexidine 0.12% Oral Kit 15 ML UDC OROPHARYNG SCH ×2 (08:00→20:10)
[2018-08-21] MEDS: Gabapentin 100 MG Capsule PO SCH ×2 (09:59→12:24)
[2018-08-21] MEDS: hydrALAZINE 25 MG Tablet PO SCH (09:59)
[2018-08-21] MEDS: QUEtiapine 25 MG Tablet PO SCH ×2 (09:59→17:42)
[2018-08-21] MEDS: chlordiazePOXIDE 25 MG Capsule PO SCH ×2 (09:59→20:10)
[2018-08-21] MEDS: Carvedilol 12.5 MG Tablet PO SCH ×2 (09:59→20:10)
[2018-08-21] MEDS: Famotidine PF Inj 20 MG/2 ML Vial IV.PUSH SCH ×2 (09:59→20:11)
[2018-08-21] MEDS: amLODIPine 5 MG Tablet PO SCH (09:59)
[2018-08-21] MEDS: Folic Acid 1 MG Tablet PO SCH (09:59)
[2018-08-21] MEDS: Aspirin 300 MG Supp RECTAL SCH (10:00)
--- NOTE | 2018-08-21 10:27 | P.PNCC ---
Subjective Subjective Remarks/Hospital Course: 08/09: 58-year-old male who was found down in his friend's garage this morning. He has a history of alcohol abuse. He recently sold his house and was staying at a friend's home. Reportedly he was due to fly later today. Patient was brought to the ER by EMS and was noted to have involuntary movements with jerking movements involving upper and lower extremities as well as his head. He received Ativan 3 mg IV and was loaded with Keppra. Initially stroke alert was called. Head CT was negative for any bleed however there was question of C6 fracture. Neurology and neurosurgery were consulted. Patient was loaded with IV Cerebyx and Vimpat by neurology. He had a [place] J collar placed after placing hard cervical collar by neurosurgery. When I evaluated the patient in the ER he was still having involuntary movements which appeared to be episodic with occasional twitchings on his face and nystagmus. This did not appear to be generalized tonic-clonic convulsions however appeared more like an extrapyramidal reaction. I ordered a stat EEG. Patient moving around too much to obtain MRI at this time. His urine tox screen was negative. He was positive for alcohol. Patient nonverbal. His involuntary movements get exaggerated on stimulation. He was reportedly completely normal yesterday. 08/10: Patient had an episode of emesis last night followed by labored breathing. He continued to have involuntary movements. He was intubated and placed on mechanical ventilation. Currently sedated with propofol, orally intubated on mechanical ventilation. Awaiting MRI brain and C-spine. EEG done yesterday did not show any seizure activity. 08/11: Sedated, orally intubated on mechanical ventilation. MRI brain unremarkable. MRI C-spine with hairline C6 fracture with no displacement. 08/12: Remains sedated, orally intubated on mechanical ventilation. Reintubated yesterday for significant hypoxia and respiratory distress with O2 sats dropping to the 70s despite nonrebreather facemask. CT pulmonary angiogram was negative for PE and showed bilateral infiltrates at the bases. 08/13: Remains sedated, orally intubated on mechanical ventilation. On propofol /fentanyl GTT. Starting tube feeds 08/14: T-max 99.4. Currently 98.3. Scheduled for IR for lumbar puncture today. Patient acute injury. Patient is on vancomycin, acyclovir and did receive IV contrast recently. Renal ultrasound ordered. Urine eosinophils, sodium and creatinine ordered. Arousable and does follow commands on the ventilator. Breakthrough agitation/involuntary systemic movements noted 08/15: Plan for lumbar puncture today. Will likely try sedation vacation overnight. See 4 mg of midazolam overnight due to agitation. Appears comfortable. Intermittently follows commands. 08/16: Lumbar puncture from yesterday accomplished. We will try sedation vacation again today and tried on dexmedetomidine drip. Rash is much improved. Discontinued lacosamide possible source of rash. Remains leukopenic and elevated eosinophils. 08/17: Low-grade fevers overnight. Blood cultures x2, sputum performed. Will start on piperacillin/tazobactam vancomycin. Extubated today. Tolerated about 2 hours but became hypoxic on 100% nonrebreather and tachypneic. Intubated with axial traction. Will need tracheostomy has failed extubation x2 08/18: T-max 100.1. Failed extubation requiring reintubation. Tracheostomy planned for 10 AM today. 08/19: Afebrile overnight. Chest x-ray following tracheostomy demonstrates tube in good position safely above the tory. Basilar infiltrates persist but clearing. On spontaneous breathing trial earlier today he had apneic episodes. With no sedation he becomes extremely agitated however. 08/20: Percutaneous gastrostomy tube plan for today. Very agitated. Remains on clevidipine drip. SUBJECTIVE: 08/21: Status post percutaneous gastrostomy tube 08/20. Some distention. Currently drainage. Will check KUB. Very agitated requiring midazolam drip. We will consult neuropsychology for assistance. Objective Vital Signs / I&O: Vital Signs 08/20/18 10:30 08/20/18 10:45 08/20/18 11:00 Temperature Pulse Rate 66 65 68 Respiratory Rate 16 11 L 19 Blood Pressure 162/81 H 169/88 H 125/56 L Pulse Oximetry 97 98 94 L 08/20/18 11:15 08/20/18 11:21 08/20/18 11:30 Temperature Pulse Rate 68 68 Respiratory Rate 19 14 19 Blood Pressure 132/63 135/67 Pulse Oximetry 95 94 L 08/20/18 11:45 08/20/18 11:58 08/20/18 12:00 Temperature 98.7 F Pulse Rate 66 66 64 Respiratory Rate 16 14 15 Blood Pressure 130/61 130/61 Pulse Oximetry 95 94 L 95 08/20/18 12:15 08/20/18 12:30 08/20/18 12:45 Temperature Pulse Rate 65 66 67 Respiratory Rate 13 19 32 H Blood Pressure 131/66 130/64 131/69 Pulse Oximetry 95 95 94 L 08/20/18 13:00 08/20/18 13:15 08/20/18 13:30 Temperature Pulse Rate 65 66 69 Respiratory Rate 12 25 H 36 H Blood Pressure 133/68 136/73 135/72 Pulse Oximetry 100 100 99 08/20/18 13:37 08/20/18 13:39 08/20/18 13:43 Temperature Pulse Rate 66 63 61 Respiratory Rate 17 16 16 Blood Pressure 130/70 134/68 128/69 Pulse Oximetry 100 99 99 08/20/18 13:45 08/20/18 13:48 08/20/18 14:00 Temperature Pulse Rate 61 62 62 Respiratory Rate 20 18 16 Blood Pressure 128/66 131/68 131/67 Pulse Oximetry 98 99 95 08/20/18 14:15 08/20/18 14:30 08/20/18 14:45 Temperature Pulse Rate 62 62 72 Respiratory Rate 16 17 37 H Blood Pressure 134/66 129/65 135/69 Pulse Oximetry 94 L 94 L 94 L 08/20/18 15:00 08/20/18 15:15 08/20/18 15:30 Temperature Pulse Rate 67 65 65 Respiratory Rate 20 16 17 Blood Pressure 135/69 135/70 139/76 Pulse Oximetry 96 96 97 08/20/18 15:35 08/20/18 15:45 08/20/18 16:00 Temperature 98.9 F Pulse Rate 64 65 64 Respiratory Rate 24 18 16 Blood Pressure 135/77 135/72 Pulse Oximetry 98 96 97 08/20/18 16:15 08/20/18 16:30 08/20/18 16:45 Temperature Pulse Rate 65 68 76 Respiratory Rate 17 25 H 13 Blood Pressure 138/77 142/78 H 186/100 H Pulse Oximetry 96 96 95 08/20/18 17:00 08/20/18 17:15 08/20/18 17:30 Temperature Pulse Rate 67 72 81 Respiratory Rate 16 18 21 Blood Pressure 181/91 H 144/73 H 149/74 H Pulse Oximetry 98 100 99 08/20/18 17:45 08/20/18 17:59 08/20/18 18:00 Temperature Pulse Rate 68 76 74 Respiratory Rate 16 18 19 Blood Pressure 144/71 H 153/76 H 148/75 H Pulse Oximetry 97 96 97 08/20/18 18:15 08/20/18 18:30 08/20/18 18:45 Temperature Pulse Rate 69 67 70 Respiratory Rate 18 16 22 Blood Pressure 147/72 H 144/77 H 137/71 Pulse Oximetry 98 96 94 L 08/20/18 19:00 08/20/18 19:43 08/20/18 20:00 Temperature Pulse Rate 69 64 68 Respiratory Rate 17 16 Blood Pressure 148/75 H Pulse Oximetry 100 99 99 08/20/18 21:15 08/20/18 21:30 08/20/18 21:45 Temperature Pulse Rate 73 70 68 Respiratory Rate 17 16 16 Blood Pressure 152/71 H 145/67 H 144/66 H Pulse Oximetry 100 100 100 08/20/18 22:00 08/20/18 22:15 08/20/18 22:30 Temperature 99.1 F Pulse Rate 67 67 67 Respiratory Rate 16 16 16 Blood Pressure 144/65 H 144/64 H 141/65 H Pulse Oximetry 99 99 99 08/20/18 22:45 08/20/18 23:00 08/20/18 23:15 Temperature Pulse Rate 66 65 64 Respiratory Rate 16 16 16 Blood Pressure 142/65 H 134/60 135/60 Pulse Oximetry 99 99 98 08/20/18 23:30 08/20/18 23:31 08/20/18 23:45 Temperature Pulse Rate 64 64 64 Respiratory Rate 16 16 16 Blood Pressure 136/60 137/60 Pulse Oximetry 99 99 99 08/21/18 00:00 08/21/18 00:15 08/21/18 00:30 Temperature 99.0 F Pulse Rate 64 64 64 Respiratory Rate 16 16 16 Blood Pressure 137/61 139/62 139/62 Pulse Oximetry 99 99 99 08/21/18 00:45 08/21/18 01:00 08/21/18 01:15 Temperature Pulse Rate 64 64 64 Respiratory Rate 16 16 16 Blood Pressure 136/64 138/65 138/66 Pulse Oximetry 99 99 99 08/21/18 01:30 08/21/18 01:45 08/21/18 02:00 Temperature Pulse Rate 63 65 65 Respiratory Rate 16 16 16 Blood Pressure 137/67 144/70 H 138/68 Pulse Oximetry 99 98 98 08/21/18 02:15 08/21/18 02:30 08/21/18 02:45 Temperature Pulse Rate 63 62 62 Respiratory Rate 16 16 16 Blood Pressure 138/65 137/66 137/66 Pulse Oximetry 98 98 98 08/21/18 03:00 08/21/18 03:15 08/21/18 03:30 Temperature Pulse Rate 62 62 61 Respiratory Rate 16 16 16 Blood Pressure 140/67 145/70 H 138/67 Pulse Oximetry 98 98 98 08/21/18 03:45 08/21/18 03:46 08/21/18 04:00 Temperature 97.7 F Pulse Rate 61 61 61 Respiratory Rate 16 16 16 Blood Pressure 141/69 H 141/67 H Pulse Oximetry 98 100 98 08/21/18 04:15 08/21/18 04:30 08/21/18 04:45 Temperature Pulse Rate 61 61 61 Respiratory Rate 18 16 16 Blood Pressure 134/71 131/65 133/66 Pulse Oximetry 98 99 99 08/21/18 05:00 08/21/18 05:15 08/21/18 05:30 Temperature Pulse Rate 61 61 61 Respiratory Rate 16 16 16 Blood Pressure 137/67 137/68 140/71 Pulse Oximetry 99 99 99 08/21/18 05:45 08/21/18 06:00 08/21/18 06:15 Temperature Pulse Rate 61 60 62 Respiratory Rate 16 16 16 Blood Pressure 139/72 140/73 145/81 H Pulse Oximetry 99 99 100 08/21/18 07:00 08/21/18 07:15 08/21/18 07:30 Temperature Pulse Rate 61 61 77 Respiratory Rate 16 16 30 H Blood Pressure 142/73 H 145/76 H 166/92 H Pulse Oximetry 100 100 100 08/21/18 07:45 08/21/18 07:59 08/21/18 08:00 Temperature 98.6 F Pulse Rate 68 72 71 Respiratory Rate 17 25 H 13 Blood Pressure 149/77 H 155/80 H Pulse Oximetry 100 99 100 08/21/18 08:15 08/21/18 08:30 08/21/18 08:45 Temperature Pulse Rate 67 64 72 Respiratory Rate 13 10 L 28 H Blood Pressure 151/75 H 154/75 H 152/76 H Pulse Oximetry 100 100 100 08/21/18 09:00 Temperature Pulse Rate 70 Respiratory Rate 11 L Blood Pressure 155/79 H Pulse Oximetry 100 Intake & Output 08/20/18 08/21/18 08/21/18 18:59 06:59 18:59 Intake Total 2426.2 / 2426.2 1620 / 1620 50 / 50 Output Total 6300 / 6300 4500 / 4500 Balance -3873.8 / -3873.8 -2880 / -2880 50 / 50 Weight 93.1 kg Intake: IV 2376.2 / 2376.2 1100 / 1100 50 / 50 Cleviprex Inj 25 mg In 50 ml @ 350 / 350 300 / 300 50 / 50 1 MG/HR 2 mls/hr IV.CONT TITRATE PRN Rx#:[id number] Precedex Inj 1,000 MCG In NS 350 / 350 250 / 250 Inj 240 ML @ 0.2 MCG/KG/HR 5.18 mls/hr IV.CONT TITRATE PRN Rx# :[id number] Azactam Inj 2 GM In NS Inj 100 200 / 200 100 / 100 ML @ 200 mls/hr IV.SIG Q8H SATYA Rx#:[id number] MVI-12 Inj 10 ML Thiamine Inj 511.2 / 511.2 100 MG Folvite Inj 1 MG In D5W- 1/2 NS Inj 500 ML @ 127.8 mls/ hr IV.SIG DAILY SATYA Rx#: [id number] KCl 20 mEq Premix Inj 20 meq In 100 / 100 200 / 200 100 ml @ 50 mls/hr IV.SIG Q2H PRN Rx#:[id number] Vancomycin Inj 1,500 MG In NS 515 / 515 Inj 500 ML @ 250 mls/hr IV.SIG Q24H SATYA Rx#:[id number] Ancef Inj 1 GM In NS Inj 100 ML 100 / 100 @ 200 mls/hr IV.SIG ONCE ONE Rx#:[id number] fentaNYL 10 mcg/mL Premix Drip 250 / 250 250 / 250 2,500 mcg In 250 ml @ 50 MCG/HR 5 mls/hr IV.SIG TITRATE PRN Rx #:[id number] Tube Irrigant 120 / 120 Water Bolus Amount 400 / 400 Anesthesia Amount 50 / 50 Output: Urine Amount (Catheter) 6300 / 6300 4500 / 4500 Indwelling Urethral Catheter 6300 / 6300 4500 / 4500 Gastric Drainage 0 / 0 0 / 0 Left Upper Quadrant 0 / 0 0 / 0 Other: Date of Last Bowel Movement 08/20/18 08/21/18 08/21/18 # Bowel Movements 6 2 Result Diagrams: 08/21/18 03:14 08/20/18 15:42 Other Results: Microbiology 08/17/18 01:15 Blood - Peripheral Aerobic Blood Culture - Final Staphylococcus epidermidis 08/17/18 01:15 Blood - Peripheral Anaerobic Blood Culture - Preliminary No growth in 3 days 08/18/18 11:45 Blood - Peripheral Aerobic Blood Culture - Preliminary No growth in 2 days 08/18/18 11:45 Blood - Peripheral Anaerobic Blood Culture - Preliminary No growth in 2 days 08/18/18 11:52 Blood - Peripheral Aerobic Blood Culture - Preliminary No growth in 2 days 08/18/18 11:52 Blood - Peripheral Anaerobic Blood Culture - Preliminary No growth in 2 days 08/17/18 03:20 Blood - Peripheral Aerobic Blood Culture - Preliminary No growth in 3 days 08/17/18 03:20 Blood - Peripheral Anaerobic Blood Culture - Preliminary No growth in 3 days Imaging: Head CT 08/09/18 09:20 CONCLUSION: 1. No acute intracranial abnormality is seen. 2. Mild widening of the cortical sulci which could suggest some atrophy. Report was called by [Dr. Dutton to at 9:49 AM. ] Chest X-Ray 08/09/18 09:21 CONCLUSION: No acute cardiopulmonary process. Cervical Spine CT 08/09/18 09:23 CONCLUSION: 1. Fracturing through anterior flowing spurs at the anterior C6 level with the fracture extending into the anterior inferior left lateral aspect of the C6 vertebral body. Empty displacement is not seen. No other possible fractures are seen. 2. 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 3. Degenerative change. Head CTA 08/09/18 09:28 CONCLUSION: Negative CTA. Report was called by [Dr. Dutton to Dr. Faustin. A message was left on the voicemail. ] Neck CTA 08/09/18 09:28 CONCLUSION: Negative CTA of the neck. Cervical Spine MRI 08/10/18 00:00 CONCLUSION: 1. Fracturing through the prominent flowing spurs at the C6 level and extending into the anterior inferior aspect of C6 vertebral body without displacement. Minimal edema seen around the fracture site. 2. Prominent spurring extending from C4 to into the thoracic spine consistent with DISH. 3. Mild central disc protrusion at the C3-C4 level. 4. Mild disc protrusion with the apex at the left lateral recess region at the C5-C6 level. 5. Neural foraminal narrowing at the C3-C4 and C5-C6 levels. Chest X-Ray 08/10/18 00:00 CONCLUSION: ET tube in good position. Lungs are grossly clear. Head MRI 08/10/18 00:00 CONCLUSION: 1. No acute intracranial abnormality. 2. Mild atrophy. Lumbar Spine CT 08/10/18 00:00 CONCLUSION: 1. No acute abnormality seen. 2. Prominent spur seen throughout the thoracic and lumbar spine likely from DISH. 3. Mild disc bulges at the L3-L4 and L4-L5 levels. 4. Lower lumbar facet hypertrophy. Thoracic Spine CT 08/10/18 00:00 CONCLUSION: 1. No fracture is seen. 2. Prominent spurring seen throughout the thoracic spine but be secondary to DISH. 3. Subpleural areas of consolidation or atelectasis at the posterior lower lungs. Chest CTA 08/11/18 00:00 CONCLUSION: 1. No evidence of any pulmonary embolism. 2. There are bilateral infiltrates predominantly in the posterior mid to lower lung villarreal. 3. 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 Chest X-Ray 08/11/18 13:29 CONCLUSION: Increasing bibasal infiltrates. Venous Doppler Study 08/12/18 00:00 CONCLUSION: 1. The study is negative for bilateral lower extremity deep venous thrombosis. Chest X-Ray 08/13/18 10:17 CONCLUSION: Mild improvement in the bibasilar pulmonary infiltrates compared to the prior exam. Venous Doppler Study 08/14/18 00:00 CONCLUSION: 1. Occlusive and nonocclusive thrombus within the bilateral cephalic veins. Abdomen/Bladder Ultrasound 08/14/18 07:24 CONCLUSION: 1. Mild prominence of the right collecting system suggestive of some mild hydronephrosis. 2. The left kidney is unremarkable. 3. The urinary bladder appears to be distended with a volume of 1554 mL. Lumbar Puncture Fluoroscopy 08/15/18 12:27 CONCLUSION: 1. Uncomplicated fluoroscopically guided lumbar puncture. Chest X-Ray 08/16/18 06:00 CONCLUSION: Modest worsening parenchymal consolidation and small effusions at each base. Venous Doppler Study 08/17/18 00:00 CONCLUSION: 1. Occlusive thrombus of the cephalic veins bilaterally. No other venous thrombosis. Chest X-Ray 08/17/18 09:51 CONCLUSION: Satisfactory position of endotracheal and nasogastric tubes Persistent significant mid lung and basilar opacity without significant improvement Chest X-Ray 08/18/18 10:46 CONCLUSION: Trach tube in good position. There is no pneumothorax Chest X-Ray 08/21/18 06:00 CONCLUSION: Bibasilar areas of consolidation or atelectasis. Some degree of effusions may be present. Objective Remarks: GENERAL: 58-year-old male on mechanical ventilation via tracheostomy SKIN: Warm and dry. Continued diffuse maculopapular rash blanchable. Involving face, thorax and lower extremities improved. HEAD: Atraumatic. Normocephalic. EYES: Pupils equal and round. No scleral icterus. No injection or drainage. ENT: No nasal bleeding or discharge. Mucous membranes pink and moist. NECK: Trachea midline. Tracheostomy site clean and dry, tube well secured. CARDIOVASCULAR: Regular rate and rhythm. S1, S2. No S4. No murmur, rub. No JVD. RESPIRATORY: No accessory muscle use. Persistent coarse crackles in the bases. Plentiful mobile secretions. GASTROINTESTINAL: Abdomen soft, non-tender, slightly distended. Hypoactive bowel sounds are appreciated. PEG tube site is clean dry and intact. MUSCULOSKELETAL: Extremities without significant peripheral edema. No obvious deformities. NEUROLOGICAL: Remains arousable on the ventilator, opens eyes but does not track. Moving all 4 extremities spontaneously. Assessment and Plan - Assessment and Plan Plan: Neuro/Psych: Acute toxic metabolic encephalopathy Involuntary movements -EEG 08/09- for epileptiform activity Anterior C6 fracture -[place] J collar times 6 weeks EtOH abuse/withdrawal. Level 114 admission Currently on fentanyl drip at 00 william grams an hour and midazolam drip at 5 mg an hour for sedation/analgesia while intubated Dexmedetomidine drip added 08/14 for weaning currently 1.0 m/kg/h Follow neuro checks. Neurology neurosurgery consulted. EEG done in ER did not reveal any seizure activity with ongoing involuntary movements. MRI brain unremarkable, MRI C-spine nondisplaced C6 fracture, continue [place] J collar for 6 weeks per neurosurgery. Aspirin placed on hold for lumbar puncture. Okay to resume dIscontinued lacosamide 100 mg IV twice daily secondary to rash Started thiamine/MVI/folic acid daily and history of EtOH abuse Currently on chlordiazepoxide 50 mg mg twice daily. Restart quetiapine 50 mg twice daily Depakene 250 mg twice daily 08/17 for mood stabilization daily Oxycodone 5 mg every 6 hours Neurology started acyclovir IV while awaiting lumbar puncture. This discontinued 08/15 with negative HSV Neuropsychiatric consult for assistance weaning Cardiovascular: Hypertensive emergency Elevated cholesterol/total Elevated HDL Rhabdomyolysis downtrending CPK to 1000 Initially was hypertensive on arrival. Hydralazine and labetalol and clevidipine drip as needed. Continue carvedilol 12.5 mg p.o. twice daily. Added hydralazine 50 mg 3 times daily, isoSorbide dinitrate 10 mg 3 times daily and increase to 100 mg 3 times daily and 20 mg 3 times daily Troponin 0.04 Pulmonary: Acute hypoxic hypercapnic respiratory failure Status post percutaneous tracheostomy 08/[address] Conn Intubated for airway protection and placed on mechanical ventilation following episode of emesis with question of aspiration on 08/10 AM. Extubated 08/17 but reintubated same day PRVC ventilation 16/550///40 vent bundle, Albuterol/ipratropium aerosols every 4 hours with albuterol aerosols every 2 hours as needed dyspnea tolerated CPAP trial and extubated on 08/11 however about 5 hours following extubation and required reintubation for hypoxic respiratory failure of unclear etiology. CT pulmonary angiogram negative for PE but possible right subclavian thrombus. Check upper extremity Dopplers revealed superficial thrombus Consulted pulmonary for further evaluation of hypoxic respiratory failure X-ray chest in a.m. 08/22 GI/liver: Elevated transaminases downward trending Hypoalbuminemia with moderate protein calorie malnutrition Nutrition recommends tube feeds with Nepro goal 50 cc an hour and advance to goal as tolerated. Hold due to PEG tube resume when okay with GI Famotidine 20 mg daily for GI prophylaxis Docusate sodium/senna 1 tablet twice daily for bowel regimen. Added polyethylene glycol 17 g twice daily and lactulose 30 cc twice daily Negative hepatitis panel FEN/renal/: Acute kidney injury resolving Hypokalemia Hypomagnesia Urinary retention with mild bilateral hydronephrosis IV hydration, strict intake output, monitor and replete electrolytes, follow BUN /creatinine. Bicarbonate drip discontinued 08/13. Free water 200 cc every 8 hours Avoid nephrotoxic medications. Continue Ogff as needed for urinary retention. ID: [id number] discontinued vancomycin, piperacillin/tazobactam and acyclovir. Watch for fever/leukocytosis Blood cultures x21 10/10 no growth to date repeat blood cultures 08/17 and sputum pending Sputum 08/11 no growth to date Number puncture with IR today 08/15-negative HSV. Started vancomycin, piperacillin/tazobactam 08/17 3 discontinued Zosyn 08/18 due to rash. Started aztreonam 2 g IV every 8 hours Endocrine: Watch for hyperglycemia, SSI for glycemic control with aspart insulin/low regimen every 6 hours Normal TSH Heme: Macrocytic anemia Documentation of prior possible right subclavian occlusion -negative Doppler Bilateral cephalic occlusive and nonocclusive superficial venous thrombosis Follow CBC. No indication for transfusion of blood products at this time Subcu heparin DVT prophylaxis MSK: Diffuse idiopathic skeletal hyperostosis drug rash possible DR ESS Weight loss encouraged PT evaluate and treat On IV famotidine, diphenhydramine. Prophylaxis: SCDs. heparin 5000 units subcutaneously every 8 hourly 24 hours post lumbar puncture, famotidine for GI prophylaxis Level 3 follow-up Code Status: Full code
--- NOTE | 2018-08-21 10:33 | P.PNPL ---
Subjective Interval history: Patient is on ventilator via trach. On CPAP with PS 12, PEEP:5 and FIO2 40%. Afebrile. Physical Exam Vital signs: Vital Signs 08/20/18 10:45 08/20/18 11:00 08/20/18 11:15 Temperature Pulse Rate 65 68 68 Respiratory Rate 11 L 19 19 Blood Pressure 169/88 H 125/56 L 132/63 Pulse Oximetry 98 94 L 95 08/20/18 11:21 08/20/18 11:30 08/20/18 11:45 Temperature Pulse Rate 68 66 Respiratory Rate 14 19 16 Blood Pressure 135/67 130/61 Pulse Oximetry 94 L 95 08/20/18 11:58 08/20/18 12:00 08/20/18 12:15 Temperature 98.7 F Pulse Rate 66 64 65 Respiratory Rate 14 15 13 Blood Pressure 130/61 131/66 Pulse Oximetry 94 L 95 95 08/20/18 12:30 08/20/18 12:45 08/20/18 13:00 Temperature Pulse Rate 66 67 65 Respiratory Rate 19 32 H 12 Blood Pressure 130/64 131/69 133/68 Pulse Oximetry 95 94 L 100 08/20/18 13:15 08/20/18 13:30 08/20/18 13:37 Temperature Pulse Rate 66 69 66 Respiratory Rate 25 H 36 H 17 Blood Pressure 136/73 135/72 130/70 Pulse Oximetry 100 99 100 08/20/18 13:39 08/20/18 13:43 08/20/18 13:45 Temperature Pulse Rate 63 61 61 Respiratory Rate 16 16 20 Blood Pressure 134/68 128/69 128/66 Pulse Oximetry 99 99 98 08/20/18 13:48 08/20/18 14:00 08/20/18 14:15 Temperature Pulse Rate 62 62 62 Respiratory Rate 18 16 16 Blood Pressure 131/68 131/67 134/66 Pulse Oximetry 99 95 94 L 08/20/18 14:30 08/20/18 14:45 08/20/18 15:00 Temperature Pulse Rate 62 72 67 Respiratory Rate 17 37 H 20 Blood Pressure 129/65 135/69 135/69 Pulse Oximetry 94 L 94 L 96 08/20/18 15:15 08/20/18 15:30 08/20/18 15:35 Temperature Pulse Rate 65 65 64 Respiratory Rate 16 17 24 Blood Pressure 135/70 139/76 Pulse Oximetry 96 97 98 08/20/18 15:45 08/20/18 16:00 08/20/18 16:15 Temperature 98.9 F Pulse Rate 65 64 65 Respiratory Rate 18 16 17 Blood Pressure 135/77 135/72 138/77 Pulse Oximetry 96 97 96 08/20/18 16:30 08/20/18 16:45 08/20/18 17:00 Temperature Pulse Rate 68 76 67 Respiratory Rate 25 H 13 16 Blood Pressure 142/78 H 186/100 H 181/91 H Pulse Oximetry 96 95 98 08/20/18 17:15 08/20/18 17:30 08/20/18 17:45 Temperature Pulse Rate 72 81 68 Respiratory Rate 18 21 16 Blood Pressure 144/73 H 149/74 H 144/71 H Pulse Oximetry 100 99 97 08/20/18 17:59 08/20/18 18:00 08/20/18 18:15 Temperature Pulse Rate 76 74 69 Respiratory Rate 18 19 18 Blood Pressure 153/76 H 148/75 H 147/72 H Pulse Oximetry 96 97 98 08/20/18 18:30 08/20/18 18:45 08/20/18 19:00 Temperature Pulse Rate 67 70 69 Respiratory Rate 16 22 17 Blood Pressure 144/77 H 137/71 148/75 H Pulse Oximetry 96 94 L 100 08/20/18 19:43 08/20/18 20:00 08/20/18 21:15 Temperature Pulse Rate 64 68 73 Respiratory Rate 16 17 Blood Pressure 152/71 H Pulse Oximetry 99 99 100 08/20/18 21:30 08/20/18 21:45 08/20/18 22:00 Temperature 99.1 F Pulse Rate 70 68 67 Respiratory Rate 16 16 16 Blood Pressure 145/67 H 144/66 H 144/65 H Pulse Oximetry 100 100 99 08/20/18 22:15 08/20/18 22:30 08/20/18 22:45 Temperature Pulse Rate 67 67 66 Respiratory Rate 16 16 16 Blood Pressure 144/64 H 141/65 H 142/65 H Pulse Oximetry 99 99 99 08/20/18 23:00 08/20/18 23:15 08/20/18 23:30 Temperature Pulse Rate 65 64 64 Respiratory Rate 16 16 16 Blood Pressure 134/60 135/60 136/60 Pulse Oximetry 99 98 99 08/20/18 23:31 08/20/18 23:45 08/21/18 00:00 Temperature 99.0 F Pulse Rate 64 64 64 Respiratory Rate 16 16 16 Blood Pressure 137/60 137/61 Pulse Oximetry 99 99 99 08/21/18 00:15 08/21/18 00:30 08/21/18 00:45 Temperature Pulse Rate 64 64 64 Respiratory Rate 16 16 16 Blood Pressure 139/62 139/62 136/64 Pulse Oximetry 99 99 99 08/21/18 01:00 08/21/18 01:15 08/21/18 01:30 Temperature Pulse Rate 64 64 63 Respiratory Rate 16 16 16 Blood Pressure 138/65 138/66 137/67 Pulse Oximetry 99 99 99 08/21/18 01:45 08/21/18 02:00 08/21/18 02:15 Temperature Pulse Rate 65 65 63 Respiratory Rate 16 16 16 Blood Pressure 144/70 H 138/68 138/65 Pulse Oximetry 98 98 98 08/21/18 02:30 08/21/18 02:45 08/21/18 03:00 Temperature Pulse Rate 62 62 62 Respiratory Rate 16 16 16 Blood Pressure 137/66 137/66 140/67 Pulse Oximetry 98 98 98 08/21/18 03:15 08/21/18 03:30 08/21/18 03:45 Temperature Pulse Rate 62 61 61 Respiratory Rate 16 16 16 Blood Pressure 145/70 H 138/67 141/69 H Pulse Oximetry 98 98 98 08/21/18 03:46 08/21/18 04:00 08/21/18 04:15 Temperature 97.7 F Pulse Rate 61 61 61 Respiratory Rate 16 16 18 Blood Pressure 141/67 H 134/71 Pulse Oximetry 100 98 98 08/21/18 04:30 08/21/18 04:45 08/21/18 05:00 Temperature Pulse Rate 61 61 61 Respiratory Rate 16 16 16 Blood Pressure 131/65 133/66 137/67 Pulse Oximetry 99 99 99 08/21/18 05:15 08/21/18 05:30 08/21/18 05:45 Temperature Pulse Rate 61 61 61 Respiratory Rate 16 16 16 Blood Pressure 137/68 140/71 139/72 Pulse Oximetry 99 99 99 08/21/18 06:00 08/21/18 06:15 08/21/18 07:00 Temperature Pulse Rate 60 62 61 Respiratory Rate 16 16 16 Blood Pressure 140/73 145/81 H 142/73 H Pulse Oximetry 99 100 100 08/21/18 07:15 08/21/18 07:30 08/21/18 07:45 Temperature Pulse Rate 61 77 68 Respiratory Rate 16 30 H 17 Blood Pressure 145/76 H 166/92 H 149/77 H Pulse Oximetry 100 100 100 08/21/18 07:59 08/21/18 08:00 08/21/18 08:15 Temperature 98.6 F Pulse Rate 72 71 67 Respiratory Rate 25 H 13 13 Blood Pressure 155/80 H 151/75 H Pulse Oximetry 99 100 100 08/21/18 08:30 08/21/18 08:45 08/21/18 09:00 Temperature Pulse Rate 64 72 70 Respiratory Rate 10 L 28 H 11 L Blood Pressure 154/75 H 152/76 H 155/79 H Pulse Oximetry 100 100 100 Intake & Output 08/20/18 08/21/18 08/21/18 18:59 06:59 18:59 Intake Total 2426.2 / 2426.2 1620 / 1620 50 / 50 Output Total 6300 / 6300 4500 / 4500 Balance -3873.8 / -3873.8 -2880 / -2880 50 / 50 Weight 93.1 kg Intake: IV 2376.2 / 2376.2 1100 / 1100 50 / 50 Cleviprex Inj 25 mg In 50 ml @ 350 / 350 300 / 300 50 / 50 1 MG/HR 2 mls/hr IV.CONT TITRATE PRN Rx#:[id number] Precedex Inj 1,000 MCG In NS 350 / 350 250 / 250 Inj 240 ML @ 0.2 MCG/KG/HR 5.18 mls/hr IV.CONT TITRATE PRN Rx# :[id number] Azactam Inj 2 GM In NS Inj 100 200 / 200 100 / 100 ML @ 200 mls/hr IV.SIG Q8H SATYA Rx#:[id number] MVI-12 Inj 10 ML Thiamine Inj 511.2 / 511.2 100 MG Folvite Inj 1 MG In D5W- 1/2 NS Inj 500 ML @ 127.8 mls/ hr IV.SIG DAILY SATYA Rx#: [id number] KCl 20 mEq Premix Inj 20 meq In 100 / 100 200 / 200 100 ml @ 50 mls/hr IV.SIG Q2H PRN Rx#:[id number] Vancomycin Inj 1,500 MG In NS 515 / 515 Inj 500 ML @ 250 mls/hr IV.SIG Q24H SATYA Rx#:[id number] Ancef Inj 1 GM In NS Inj 100 ML 100 / 100 @ 200 mls/hr IV.SIG ONCE ONE Rx#:[id number] fentaNYL 10 mcg/mL Premix Drip 250 / 250 250 / 250 2,500 mcg In 250 ml @ 50 MCG/HR 5 mls/hr IV.SIG TITRATE PRN Rx #:[id number] Tube Irrigant 120 / 120 Water Bolus Amount 400 / 400 Anesthesia Amount 50 / 50 Output: Urine Amount (Catheter) 6300 / 6300 4500 / 4500 Indwelling Urethral Catheter 6300 / 6300 4500 / 4500 Gastric Drainage 0 / 0 0 / 0 Left Upper Quadrant 0 / 0 0 / 0 Other: Date of Last Bowel Movement 08/20/18 08/21/18 08/21/18 # Bowel Movements 6 2 - Constitutional no acute distress - Routine HEENT Exam Head: Present: normocephalic, atraumatic Eye: Present: EOMI, PERRL, normal accommodation, conjunctivae pink ENT: Present: mucous membranes moist - Routine Neck Exam Present: supple, full ROM, trachea midline - Routine Respiratory Exam Present: CTA bilaterally - Routine Cardiovascular Exam Present: RRR, S1, S2 - Routine Abdominal Exam Present: soft, normoactive bowel sounds - Routine Skin Exam Present: intact, dry - Routine Neurological Exam Present: altered mental status - Urinary Catheter Management Indwelling Urethral Catheter Cath placed during this visit: yes, but has since been removed by the nurse Reason for continuing: Hourly intake/output Insertion date: 08/17/18 Insertion time: 18:30 Removal date: 08/11/18 Removal time: 09:50 Condom Cath placed during this visit: no Reason for continuing: Not indwelling catheter Straight Cath placed during this visit: yes Reason for continuing: Acute urinary retention Insertion date: 08/17/18 Insertion time: 10:30 Assessment and Plan - Plan 1. VDRF 2. Aspiration pneumonia. 3. Encephalopathy. 4. Rhabdomyolysis with elevated CK. 5. C6 fracture. 6. Ethanol intoxication. 7. Anemia and thrombocytopenia. 8 Occlusive thrombus of the cephalic veins bilaterally. Plan Continue with vent support and maintain sats >92%. Bronchodilators, ICU vent bundle. SBT daily as miko. s/p perc trach at bedside 08/18 Pulm toilet,trach care CXR today: Bibasilar areas of consolidation or atelectasis. Monitor neuro status closely, daily sedation vacation. Neuro is following, Continue Thiamine. S/p LP, HSV PCR negative. Daily sedation vacation as miko. Abx- On Aztreonam, vanco , Monitor for signs of infection( fever and WBC). 08/22 bottles: Staph Epi likely contaminant, follow up on 08/18: NGTD 08/11 sputum culture: Normal resp sherman Monitor renal function and electrolyte replacement per protocol. on Lasix 40mg BID Doppler US LE negative for DVT Doppler US UE: Occlusive thrombus of the cephalic veins bilaterally Echocardiogram showed EF of 50% to 55%. GI and DVT prophylaxis.
[2018-08-21] MEDS ORDERED: Magnesium Sulfate Inj 4 GM in Sodium Chlor 0.9% Inj 92 ML IV.SIG ONE (11:00)
[2018-08-21] MEDS ORDERED: Pharmacy Ordered Lab Info OTHER ONE (11:45)
--- NOTE | 2018-08-21 12:04 | XR ---
EXAM DATE: 08/21/2018 11:54 AM EST AGE/SEX: 58 years / Male INDICATIONS: Distention. CLINICAL DATA: This is the patient's initial encounter. Patient reports that signs and symptoms have been present for 1 week and indicates a pain score of Nonresponsive. MEDICAL/SURGICAL HISTORY: Hypertension. None. COMPARISON: No prior exams available for comparison. FINDINGS: There is seen throughout colon which is marginally dilated. No dilated loops of small bowel. No free air is identified. No organomegaly is evident. Osseous structures are intact. CONCLUSION: 1. Nonspecific marginally dilated air-filled colon. Differential considerations include mild colonic ileus. Electronically signed by: Clay Alexis MD Board Certified Radiologist 08/21/2018 12:03 PM EST
[2018-08-21] MEDS: Multivitamin Inj 10 ML, Thiamine Inj 100 MG, Folic Acid Inj 1 MG in Dextrose 5%/NaCl 0.... IV.SIG SCH (12:08)
[2018-08-21] MEDS: Heparin - SQ 10,000 UNITS/ML Vial SQ SCH ×2 (12:23→20:10)
[2018-08-21] MEDS: Vancomycin Inj 1,500 MG in Sodium Chlor 0.9% Inj 500 ML IV.SIG SCH (12:24)
[2018-08-21 12:34] LABS: Alanine Aminotransferase 34 U/L (12-78); Albumin 2.4 g/dL (3.4-5.0); Anion Gap 10 meq/L (5-15); Aspartate Aminotransferase 27 U/L (15-37); Blood Urea Nitrogen 12 mg/dL (7-18); Calcium 8.5 mg/dL (8.5-10.1); Carbon Dioxide 28.7 meq/L (21.0-32.0); Chloride 104 meq/L (98-107); Glomerular Filtration Rate Greater Than 89 mL/min (>89); Glucose,Random 85 mg/dL (74-106); Magnesium 1.5 mg/dL (1.5-2.5); Phosphorus 5.2 mg/dL (2.5-4.9); Sodium 143 meq/L (136-145)
[2018-08-21 12:36] LABS: Alkaline Phosphatase 133 U/L (45-117); Total Protein 6.6 g/dL (6.4-8.2); Vancomycin,Trough 10.1 mcg/mL (5.0-10.0)
--- NOTE | 2018-08-21 12:53 | P.NPEVAL ---
Patient History - Record/History Review Reason for Referral: The patient is a 58 year old presumed right handed man who was admitted to [facility] on 08/09/2018 after being found down at a friend's home. Head CT was negative, but there was a question of C6 fracture. This patient is known to have a history of alcohol abuse. He has undergone trach. He has had significant agitation off sedation with Versed drip, and was diagnosed with acute toxic metabolic encephalopathy. His EEG was unremarkable. He is presently managed on Librium, Versed, Seroquel 50 BID and VPA 250 BID. Recent ABS scores are 20 (24.5,14,14). He is referred for baseline neurobehavioral status examination per trauma protocol to assess cognitive, behavioral and emotional aspects of the injury and to provide treatment recommendations. [facility] - History History Provided By: Friend, Commercial Subcontractor / EMT - Medical / Surgical Hx Neg / Unobtainable Medical Problems Denied: Unable to Obtain - Medical History Medical History: Medical History (Last Reviewed 08/16/18 @ 14:11 by Cheri Bui) ETOH abuse HTN (hypertension) - Tobacco History Tobacco Use In Past 30 Days: Yes Smoking Status: Current every day smoker Tobacco Type: Cigarettes - Alcohol History How Often Do You Have a Drink Containing Alcohol: Unable to Obtain - Substance Use History Substance History: Unable to Obtain - Travel History Recent Travel in the [place] Within the Last 8 Weeks: No Recent Travel Out of the Country Within the Last 8 Weeks: No - Immunization History Tetanus Immunization: Unable to Assess Medications Active Medications Acetaminophen (Tylenol) 650 mg PO Q4H PRN PRN Reason: temp > 100F Last Admin: 08/17/18 00:33 Dose: 650 mg Albuterol (Duoneb Neb (Manuela)) 1 ampul NEB Q4HR NEB [facility] Last Admin: 08/21/18 11:55 Dose: 1 ampul Albuterol (Albuterol Neb (Prn)) 2.5 mg NEB Q2HR NEB PRN PRN Reason: DYSPNEA Amlodipine Besylate (Norvasc) 10 mg PO DAILY [facility] Last Admin: 08/21/18 09:59 Dose: 10 mg Artificial Tears (Tears Naturale Opth Drops) 1 drop EACH EYE Q8H [facility] Last Admin: 08/21/18 10:51 Dose: 1 drop Aspirin (Aspirin Supp) 300 mg RECTAL DAILY [facility] Last Admin: 08/21/18 10:00 Dose: 300 mg Carvedilol (Coreg) 12.5 mg PO BID [facility] Last Admin: 08/21/18 09:59 Dose: 12.5 mg Chlordiazepoxide (Librium) 50 mg PO BID [facility] Last Admin: 08/21/18 09:59 Dose: 50 mg Chlorhexidine Gluconate (Peridex 0.12% Oral Kit) 15 ml OROPHARYNG BID@0800, 2000 [facility] Last Admin: 08/21/18 08:00 Dose: 15 ml Dextrose (D50w Vial) 50 ml IV.PUSH UNSCH PRN PRN Reason: PER HYPOGLYCEMIA PROTOCOL Famotidine (Pepcid Pf Inj) 20 mg IV.PUSH Q12HR [facility] Last Admin: 08/21/18 09:59 Dose: 20 mg Flumazenil (Romazecon Inj) 0.2 mg IV.PUSH Q1M PRN PRN Reason: OVERSEDATION Folic Acid (Folic Acid) 1 mg PO DAILY [facility] Last Admin: 08/21/18 09:59 Dose: 1 mg Furosemide (Lasix Inj) 40 mg IV.PUSH BID@0900,1800 [facility] Last Admin: 08/21/18 09:59 Dose: 40 mg Gabapentin (Neurontin) 100 mg PO TID [facility] Last Admin: 08/21/18 12:24 Dose: 100 mg Glucagon (Glucagon Inj) 1 mg OTHER UNSCH PRN PRN Reason: for Hypoglycemia Protocol Heparin Sodium (Porcine) (Heparin Inj) 5,000 units SQ Q8H [facility] Last Admin: 08/21/18 12:23 Dose: 5,000 units Hydralazine HCl (Apresoline Inj) 10 mg IV.PUSH Q1H PRN PRN Reason: SBP >165 Last Admin: 08/20/18 02:03 Dose: 10 mg Hydralazine HCl (Apresoline) 100 mg PO TID [facility] Last Admin: 08/21/18 12:24 Dose: 100 mg Nicardipine HCl 25 mg/ Sodium (Chloride) 250 mls @ 50 mls/hr IV.CONT TITRATE PRN; Protocol PRN Reason: Per Protocol Last Titration: 08/18/18 18:37 Dose: Infused Propofol (Diprivan 1000 Mg/100 Ml Inj) 1,000 mg in 100 mls @ 2.634 mls/hr IV.CONT TITRATE PRN; Protocol PRN Reason: Per Protocol Last Titration: 08/18/18 15:13 Dose: Infused Multivitamins 10 ml/ Thiamine HCl 100 mg/ Folic Acid 1 mg/Dextrose/Sodium Chloride 511.2 mls @ 127.8 mls/hr IV.SIG DAILY [facility] Last Admin: 08/21/18 12:08 Dose: 127 mls/hr Fentanyl (Fentanyl 10 Mcg/Ml Premix Drip) 2,500 mcg in 250 mls @ 5 mls/hr IV.SIG TITRATE PRN; Protocol PRN Reason: Per Protocol Last Admin: 08/21/18 07:02 Dose: 200 mcg/hr, 20 mls/hr Midazolam HCl (Versed Inj) 100 mg in 100 mls @ 2 mls/hr IV.CONT TITRATE PRN; Protocol PRN Reason: See protocol Last Admin: 08/20/18 23:55 Dose: 5 mg/hr, 5 mls/hr Aztreonam 2 gm/ Sodium (Chloride) 100 mls @ 200 mls/hr IV.SIG Q8H [facility] Last Infusion: 08/21/18 10:30 Dose: Infused Vancomycin HCl 1,500 mg/ (Sodium Chloride) 515 mls @ 250 mls/hr IV.SIG Q24H [facility] Last Admin: 08/21/18 12:24 Dose: 250 mls/hr Clevidipine (Cleviprex Inj) 25 mg in 50 mls @ 2 mls/hr IV.CONT TITRATE PRN; Protocol PRN Reason: Per protocol Last Admin: 08/21/18 11:06 Dose: 10 mg/hr, 20 mls/hr Magnesium Sulfate 4 gm/ Sodium (Chloride) 100 mls @ 50 mls/hr IV.SIG UNSCH PRN PRN Reason: For Magnesium 0.9 - 1.1 mg/dL Magnesium Sulfate 2 gm/ Sodium (Chloride) 100 mls @ 50 mls/hr IV.SIG UNSCH PRN PRN Reason: For Magnesium 1.2 - 1.6 mg/dL Potassium Chloride (Kcl 40 Meq Premix Inj) 40 meq in 100 mls @ 25 mls/hr IV.SIG Q2H PRN PRN Reason: For Potassium 2.8 - 3.2 mEq/L Potassium Chloride (Kcl 20 Meq Premix Inj) 20 meq in 100 mls @ 50 mls/hr IV.SIG Q2H PRN PRN Reason: For Potassium 3.3 - 3.5 mEq/L Potassium Chloride (Kcl 20 Meq Premix Inj) 20 meq in 100 mls @ 50 mls/hr IV.SIG Q2H PRN PRN Reason: For Potassium 2.8 - 3.2 mEq/L Last Infusion: 08/21/18 03:03 Dose: Infused Potassium Phosphate 30 mmol/ (Sodium Chloride) 260 mls @ 42 mls/hr IV.SIG UNSCH PRN PRN Reason: SEE LABEL COMMENTS Sodium Phosphate 30 mmol/ (Sodium Chloride) 260 mls @ 42 mls/hr IV.SIG UNSCH PRN PRN Reason: For Phosphorus < 2.5 mg/dL Potassium Chloride (Kcl 40 Meq Premix Inj) 40 meq in 100 mls @ 25 mls/hr IV.SIG UNSCH PRN PRN Reason: For Potassium 3.3 - 3.5 mEq/L Dexmedetomidine HCl 1,000 mcg/ (Sodium Chloride) 250 mls @ 5.18 mls/hr IV.CONT TITRATE PRN; Protocol PRN Reason: Per Protocol Last Admin: 08/21/18 02:36 Dose: 1.1 mcg/kg/hr, 28.49 mls/hr Magnesium Sulfate 4 gm/ Sodium (Chloride) 100 mls @ 25 mls/hr IV.SIG ONCE ONE Stop: 08/21/18 14:59 Last Admin: 08/21/18 12:09 Dose: 25 mls/hr Isosorbide Dinitrate (Isordil) 20 mg PO Q8HR [facility] Labetalol HCl (Trandate Inj) 10 mg IV.PUSH Q1H PRN PRN Reason: Sbp>160, Dbp>90 HR > 65 Last Admin: 08/18/18 01:36 Dose: 10 mg Lactulose (Lactulose Liq) 30 ml PO BID [facility] Last Admin: 08/21/18 10:10 Dose: Not Given Magnesium Oxide (Mag-Ox) 800 mg PO UNSCH PRN PRN Reason: For Magnesium 1.2 - 1.6 mg/dL Miscellaneous Medication () 1 each OROPHARYNG 0000,0400,1200,1600 [facility] Last Admin: 08/21/18 12:11 Dose: 1 each Oxycodone HCl (Roxicodone Intensol Liq) 5 mg PO Q6H [facility] Last Admin: 08/21/18 10:00 Dose: 5 mg Pharmacy Profile Note (Vancomycin Consult Pharmacy) 1 each OTHER UNSCH PRN PRN Reason: Pharmacy to dose Potassium Bicarb/Potassium Chloride (K-Lyte Cl Eff) 50 meq PO UNSCH PRN PRN Reason: For Potassium 3.3 - 3.5 mEq/L Potassium Phosphate (K-Phos Original) 2,000 mg PO Q4H PRN PRN Reason: Phosphorus Less Than 2.5 mg/dL Potassium Phosphate (K-Phos Original) 2,000 mg PO UNSCH PRN PRN Reason: SEE LABEL COMMENTS Quetiapine Fumarate (Seroquel) 50 mg PO BID [facility] Last Admin: 08/21/18 09:59 Dose: 50 mg Sodium Chloride (Ns Flush) 2 ml IV.FLUSH BID [facility] Last Admin: 08/21/18 10:10 Dose: 2 ml Sodium Chloride (Ns Flush) 2 ml IV.FLUSH PRN PRN PRN Reason: FLUSH AFTER USING IV ACCESS Sterile Water (Free Water) 200 ml G-TUBE Q8HR [facility] Last Admin: 08/21/18 06:00 Dose: 200 ml Thiamine HCl (Vitamin B1) 100 mg PO BID [facility] Last Admin: 08/21/18 09:59 Dose: 100 mg Valproate Sodium (Depakene Liq) 250 mg PO BID [facility] Mental Status Assessment - Mental Status Orientation: oriented to: Self, disoriented to: Place, Time, Situation Mental Status: Impaired: Thought processing, Language/interactions, Attention, Learning/memory, Problem-solving Absent: Hallucinations, Delusions Adjustment/Coping Assessment - Adjustment/Coping Adjustment/Coping: Severe: Awareness, Insight - Observation In terms of emotional functioning, the patient demonstrated [challenges / normal adjustment]. This patient demonstrated no signs of agitation, impulsivity or disinhibition, nor was there remarkable evidence of a formal thought disorder or psychosis. There was [evidence/no evidence] of depression or anxiety. The Geriatric Depression Scale-Short Form was administered given the ease to which it is administered to persons with known neurological pathology, and the patient endorsed [] of 15 symptoms, which falls within the [ ] depressed range. Thought content was free from suicidal, homicidal or paranoid ideation, and thought processes were logical and [goal-directed / blunted / tangential / concrete]. The patients mood was [dysthymic / euthymic / passive-aggressive / anxious / demanding / guarded / tearful / apathetic / angry], and her affect was stable and [appropriate / sad / worrisome / expansive / intense / apathetic / blunted / labile / flat / constricted]. The patient appears to possess [poor / adequate] insight and awareness into their situation and within the limits of this brief evaluation, [poor / adequate] judgment. - Goals/Team Members LTG Status: Deferred STG Status: Deferred Team Members: Neuropsychologist Behavior - Behavior Agitation: Mild Treatment Engagement: Minimal - Observation Behaviorally, the patient demonstrated signs of agitation, impulsivity or disinhibition. There was no remarkable evidence of a formal thought disorder or psychosis. 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 Disinhibition Score: 24.50 Aggression Score: 14.00 Lability Score: 14.00 Agitated Behavior Total Score: 20 Maximizing Acute Care Outcome: The patient is presently managed on Seroquel 50 BID and VPA 250 BID and Librium and Versed. Consider increasing Seroquel to 75/75/100 and VPA to 250 TID, with a PRN Haldol, with goal of bringing agitation/restlessness down to below a total score of 21 on all subscores of the ABS, and so we can d/c benzo's which may be contributing to his agitation/confusion. Presently he is at 24.5 on the disinhibition subscore. He is generally past BEREKET at this point, successfully managed throughout his critical care treatment thus far. Promote as normal as possible sleep wake cycle, and 100 HS of Seroquel may assist in this endeavor. At this point in the recovery process, the patient does not have cognitive capacity as the patient is unable to understand a situation and its likely consequences, nor is the patient able to manipulate information rationally. Cognitive capacity will be assessed throughout the recovery process. - Discharge Planning Anticipated Problems: Ongoing areas of concern will include behavioral impulsivity, lack of insight and judgment, which is expected to improve with time and treatment. Treatment Plan: This clinician will continue to follow with you throughout the course of this patients critical care treatment, and I will be available to meet with the patients family/support system to facilitate their understanding and the ongoing care of their family member. The goals of neuropsychological intervention shall be both educational and supportive to the family/support system as is deemed clinically appropriate. Thank you for the opportunity to assist in this patients care. Tom Sawant, Ph.D., ABPP Board Certified in Clinical Neuropsychology [facility] Board of Professional Psychology [place] Licensed Psychologist #[id number]
--- NOTE | 2018-08-21 13:40 | P.PNGI ---
Subjective Interval history: Patient remains intubated and sedated. RN at bedside, states that patient has been having stool. This morning his abdomen was distended, PEG tube was placed to gravity and patient has had approximately 500 mL's of green colored output. KUB was done which is consistent with findings of an ileus. Patient's abdomen is no longer distended, bowel sounds are active and it is soft at present. <Aileen Jack - Last Filed: 08/21/18 13:35> Physical Exam Vital signs: Vital Signs 08/20/18 13:37 08/20/18 13:39 08/20/18 13:43 Temperature Pulse Rate 66 63 61 Respiratory Rate 17 16 16 Blood Pressure 130/70 134/68 128/69 Pulse Oximetry 100 99 99 08/20/18 13:45 08/20/18 13:48 08/20/18 14:00 Temperature Pulse Rate 61 62 62 Respiratory Rate 20 18 16 Blood Pressure 128/66 131/68 131/67 Pulse Oximetry 98 99 95 08/20/18 14:15 08/20/18 14:30 08/20/18 14:45 Temperature Pulse Rate 62 62 72 Respiratory Rate 16 17 37 H Blood Pressure 134/66 129/65 135/69 Pulse Oximetry 94 L 94 L 94 L 08/20/18 15:00 08/20/18 15:15 08/20/18 15:30 Temperature Pulse Rate 67 65 65 Respiratory Rate 20 16 17 Blood Pressure 135/69 135/70 139/76 Pulse Oximetry 96 96 97 08/20/18 15:35 08/20/18 15:45 08/20/18 16:00 Temperature 98.9 F Pulse Rate 64 65 64 Respiratory Rate 24 18 16 Blood Pressure 135/77 135/72 Pulse Oximetry 98 96 97 08/20/18 16:15 08/20/18 16:30 08/20/18 16:45 Temperature Pulse Rate 65 68 76 Respiratory Rate 17 25 H 13 Blood Pressure 138/77 142/78 H 186/100 H Pulse Oximetry 96 96 95 08/20/18 17:00 08/20/18 17:15 08/20/18 17:30 Temperature Pulse Rate 67 72 81 Respiratory Rate 16 18 21 Blood Pressure 181/91 H 144/73 H 149/74 H Pulse Oximetry 98 100 99 08/20/18 17:45 08/20/18 17:59 08/20/18 18:00 Temperature Pulse Rate 68 76 74 Respiratory Rate 16 18 19 Blood Pressure 144/71 H 153/76 H 148/75 H Pulse Oximetry 97 96 97 08/20/18 18:15 08/20/18 18:30 08/20/18 18:45 Temperature Pulse Rate 69 67 70 Respiratory Rate 18 16 22 Blood Pressure 147/72 H 144/77 H 137/71 Pulse Oximetry 98 96 94 L 08/20/18 19:00 08/20/18 19:43 08/20/18 20:00 Temperature Pulse Rate 69 64 68 Respiratory Rate 17 16 Blood Pressure 148/75 H Pulse Oximetry 100 99 99 08/20/18 21:15 08/20/18 21:30 08/20/18 21:45 Temperature Pulse Rate 73 70 68 Respiratory Rate 17 16 16 Blood Pressure 152/71 H 145/67 H 144/66 H Pulse Oximetry 100 100 100 08/20/18 22:00 08/20/18 22:15 08/20/18 22:30 Temperature 99.1 F Pulse Rate 67 67 67 Respiratory Rate 16 16 16 Blood Pressure 144/65 H 144/64 H 141/65 H Pulse Oximetry 99 99 99 08/20/18 22:45 08/20/18 23:00 08/20/18 23:15 Temperature Pulse Rate 66 65 64 Respiratory Rate 16 16 16 Blood Pressure 142/65 H 134/60 135/60 Pulse Oximetry 99 99 98 08/20/18 23:30 08/20/18 23:31 08/20/18 23:45 Temperature Pulse Rate 64 64 64 Respiratory Rate 16 16 16 Blood Pressure 136/60 137/60 Pulse Oximetry 99 99 99 08/21/18 00:00 08/21/18 00:15 08/21/18 00:30 Temperature 99.0 F Pulse Rate 64 64 64 Respiratory Rate 16 16 16 Blood Pressure 137/61 139/62 139/62 Pulse Oximetry 99 99 99 08/21/18 00:45 08/21/18 01:00 08/21/18 01:15 Temperature Pulse Rate 64 64 64 Respiratory Rate 16 16 16 Blood Pressure 136/64 138/65 138/66 Pulse Oximetry 99 99 99 08/21/18 01:30 08/21/18 01:45 08/21/18 02:00 Temperature Pulse Rate 63 65 65 Respiratory Rate 16 16 16 Blood Pressure 137/67 144/70 H 138/68 Pulse Oximetry 99 98 98 08/21/18 02:15 08/21/18 02:30 08/21/18 02:45 Temperature Pulse Rate 63 62 62 Respiratory Rate 16 16 16 Blood Pressure 138/65 137/66 137/66 Pulse Oximetry 98 98 98 08/21/18 03:00 08/21/18 03:15 08/21/18 03:30 Temperature Pulse Rate 62 62 61 Respiratory Rate 16 16 16 Blood Pressure 140/67 145/70 H 138/67 Pulse Oximetry 98 98 98 08/21/18 03:45 08/21/18 03:46 08/21/18 04:00 Temperature 97.7 F Pulse Rate 61 61 61 Respiratory Rate 16 16 16 Blood Pressure 141/69 H 141/67 H Pulse Oximetry 98 100 98 08/21/18 04:15 08/21/18 04:30 08/21/18 04:45 Temperature Pulse Rate 61 61 61 Respiratory Rate 18 16 16 Blood Pressure 134/71 131/65 133/66 Pulse Oximetry 98 99 99 08/21/18 05:00 08/21/18 05:15 08/21/18 05:30 Temperature Pulse Rate 61 61 61 Respiratory Rate 16 16 16 Blood Pressure 137/67 137/68 140/71 Pulse Oximetry 99 99 99 08/21/18 05:45 08/21/18 06:00 08/21/18 06:15 Temperature Pulse Rate 61 60 62 Respiratory Rate 16 16 16 Blood Pressure 139/72 140/73 145/81 H Pulse Oximetry 99 99 100 08/21/18 07:00 08/21/18 07:15 08/21/18 07:30 Temperature Pulse Rate 61 61 77 Respiratory Rate 16 16 30 H Blood Pressure 142/73 H 145/76 H 166/92 H Pulse Oximetry 100 100 100 08/21/18 07:45 08/21/18 07:59 08/21/18 08:00 Temperature 98.6 F Pulse Rate 68 72 71 Respiratory Rate 17 25 H 13 Blood Pressure 149/77 H 155/80 H Pulse Oximetry 100 99 100 08/21/18 08:15 08/21/18 08:30 08/21/18 08:45 Temperature Pulse Rate 67 64 72 Respiratory Rate 13 10 L 28 H Blood Pressure 151/75 H 154/75 H 152/76 H Pulse Oximetry 100 100 100 08/21/18 09:00 08/21/18 10:52 08/21/18 11:55 Temperature Pulse Rate 70 69 Respiratory Rate 11 L 16 10 L Blood Pressure 155/79 H Pulse Oximetry 100 98 Intake & Output 08/20/18 08/21/18 08/21/18 18:59 06:59 18:59 Intake Total 2426.2 / 2426.2 1620 / 1620 250 / 250 Output Total 6300 / 6300 4500 / 4500 Balance -3873.8 / -3873.8 -2880 / -2880 250 / 250 Weight 93.1 kg Intake: IV 2376.2 / 2376.2 1100 / 1100 250 / 250 Cleviprex Inj 25 mg In 50 ml @ 350 / 350 300 / 300 150 / 150 1 MG/HR 2 mls/hr IV.CONT TITRATE PRN Rx#:[id number] Precedex Inj 1,000 MCG In NS 350 / 350 250 / 250 Inj 240 ML @ 0.2 MCG/KG/HR 5.18 mls/hr IV.CONT TITRATE PRN Rx# :[id number] Azactam Inj 2 GM In NS Inj 100 200 / 200 100 / 100 100 / 100 ML @ 200 mls/hr IV.SIG Q8H SATYA Rx#:[id number] MVI-12 Inj 10 ML Thiamine Inj 511.2 / 511.2 100 MG Folvite Inj 1 MG In D5W- 1/2 NS Inj 500 ML @ 127.8 mls/ hr IV.SIG DAILY SATYA Rx#: [id number] KCl 20 mEq Premix Inj 20 meq In 100 / 100 200 / 200 100 ml @ 50 mls/hr IV.SIG Q2H PRN Rx#:[id number] Vancomycin Inj 1,500 MG In NS 515 / 515 Inj 500 ML @ 250 mls/hr IV.SIG Q24H SATYA Rx#:[id number] Ancef Inj 1 GM In NS Inj 100 ML 100 / 100 @ 200 mls/hr IV.SIG ONCE ONE Rx#:[id number] fentaNYL 10 mcg/mL Premix Drip 250 / 250 250 / 250 2,500 mcg In 250 ml @ 50 MCG/HR 5 mls/hr IV.SIG TITRATE PRN Rx #:[id number] Tube Irrigant 120 / 120 Water Bolus Amount 400 / 400 Anesthesia Amount 50 / 50 Output: Urine Amount (Catheter) 6300 / 6300 4500 / 4500 Indwelling Urethral Catheter 6300 / 6300 4500 / 4500 Gastric Drainage 0 / 0 0 / 0 Left Upper Quadrant 0 / 0 0 / 0 Other: Date of Last Bowel Movement 08/20/18 08/21/18 08/21/18 # Bowel Movements 6 2 - Constitutional no acute distress - Routine HEENT Exam Head: Present: normocephalic, atraumatic - Routine Respiratory Exam Present: patient mechanically ventilated - Routine Abdominal Exam Present: soft, normoactive bowel sounds Comments: Mildly distended - Routine Skin Exam Present: dry, warm - Urinary Catheter Management Indwelling Urethral Catheter Cath placed during this visit: yes, but has since been removed by the nurse Reason for continuing: Hourly intake/output Insertion date: 08/17/18 Insertion time: 18:30 Removal date: 08/11/18 Removal time: 09:50 Condom Cath placed during this visit: no Reason for continuing: Not indwelling catheter Straight Cath placed during this visit: yes Reason for continuing: Acute urinary retention Insertion date: 08/17/18 Insertion time: 10:30 <Aileen Jack - Last Filed: 08/21/18 13:35> Vital signs: Vital Signs 08/21/18 14:00 08/21/18 14:15 08/21/18 14:30 Temperature Pulse Rate 51 L 76 76 Respiratory Rate 14 33 H 36 H Blood Pressure 106/51 L 119/57 L 129/58 L Pulse Oximetry 94 L 95 95 08/21/18 14:45 08/21/18 15:00 08/21/18 15:15 Temperature Pulse Rate 70 68 69 Respiratory Rate 17 17 18 Blood Pressure 121/58 L 126/56 L 126/57 L Pulse Oximetry 95 96 95 08/21/18 15:30 08/21/18 15:35 08/21/18 15:45 Temperature Pulse Rate 72 75 71 Respiratory Rate 27 H 17 14 Blood Pressure 131/60 133/61 Pulse Oximetry 95 94 L 98 08/21/18 16:00 08/21/18 16:15 08/21/18 16:30 Temperature 98.8 F Pulse Rate 60 69 66 Respiratory Rate 27 H 18 17 Blood Pressure 134/60 123/59 L 110/55 L Pulse Oximetry 97 95 97 08/21/18 16:45 08/21/18 17:00 08/21/18 17:15 Temperature Pulse Rate 63 62 62 Respiratory Rate 16 16 16 Blood Pressure 112/53 L 109/55 L 113/55 L Pulse Oximetry 97 97 97 08/21/18 17:30 08/21/18 17:45 08/21/18 18:00 Temperature Pulse Rate 61 61 53 L Respiratory Rate 15 15 15 Blood Pressure 113/56 L 114/58 L 112/53 L Pulse Oximetry 97 97 96 08/21/18 18:15 08/21/18 18:30 08/21/18 18:45 Temperature Pulse Rate 72 68 75 Respiratory Rate 34 H 25 H 27 H Blood Pressure 124/59 L 119/55 L 130/60 Pulse Oximetry 99 91 L 91 L 08/21/18 19:54 08/21/18 19:55 08/21/18 20:00 Temperature Pulse Rate 74 80 Respiratory Rate 20 16 Blood Pressure Pulse Oximetry 96 99 08/21/18 22:28 08/22/18 00:30 08/22/18 00:45 Temperature 99.6 F Pulse Rate 88 94 H Respiratory Rate 18 16 22 Blood Pressure 171/78 H 175/69 H Pulse Oximetry 94 L 96 95 08/22/18 00:52 08/22/18 00:54 08/22/18 01:00 Temperature Pulse Rate 82 81 Respiratory Rate 19 17 20 Blood Pressure 156/65 H Pulse Oximetry 97 97 08/22/18 01:15 08/22/18 01:30 08/22/18 01:45 Temperature Pulse Rate 83 83 93 H Respiratory Rate 19 19 22 Blood Pressure 149/65 H 152/58 H 173/78 H Pulse Oximetry 95 95 95 08/22/18 02:00 08/22/18 02:15 08/22/18 02:30 Temperature Pulse Rate 92 H 81 80 Respiratory Rate 16 20 19 Blood Pressure 175/79 H 150/65 H 148/65 H Pulse Oximetry 95 96 97 08/22/18 02:45 08/22/18 03:00 08/22/18 03:15 Temperature Pulse Rate 96 H 91 H 91 H Respiratory Rate 16 16 24 Blood Pressure 164/74 H 153/67 H 153/74 H Pulse Oximetry 96 96 97 08/22/18 03:30 08/22/18 03:45 08/22/18 04:00 Temperature 99.2 F Pulse Rate 78 81 78 Respiratory Rate 17 19 18 Blood Pressure 133/64 136/75 138/63 Pulse Oximetry 96 96 97 08/22/18 04:15 08/22/18 04:30 08/22/18 04:36 Temperature Pulse Rate 74 72 Respiratory Rate 17 17 17 Blood Pressure 130/58 L 130/61 Pulse Oximetry 97 97 96 08/22/18 04:39 08/22/18 04:45 08/22/18 05:00 Temperature Pulse Rate 73 77 77 Respiratory Rate 12 17 19 Blood Pressure 139/63 144/65 H Pulse Oximetry 97 97 08/22/18 05:15 08/22/18 05:30 08/22/18 05:45 Temperature Pulse Rate 78 76 76 Respiratory Rate 19 17 18 Blood Pressure 142/61 H 140/61 127/59 L Pulse Oximetry 95 96 95 08/22/18 06:00 08/22/18 06:15 08/22/18 06:29 Temperature Pulse Rate 70 70 70 Respiratory Rate 17 17 17 Blood Pressure 123/56 L 123/57 L Pulse Oximetry 95 95 95 08/22/18 06:30 08/22/18 06:45 08/22/18 07:00 Temperature Pulse Rate 70 70 71 Respiratory Rate 17 17 16 Blood Pressure 126/58 L 127/59 L 131/60 Pulse Oximetry 95 96 96 08/22/18 07:15 08/22/18 07:30 08/22/18 07:45 Temperature Pulse Rate 71 71 71 Respiratory Rate 17 17 17 Blood Pressure 131/60 132/61 136/63 Pulse Oximetry 96 96 96 08/22/18 08:00 08/22/18 08:15 08/22/18 08:22 Temperature 98.8 F Pulse Rate 71 71 74 Respiratory Rate 17 16 21 Blood Pressure 137/62 133/61 Pulse Oximetry 96 96 99 08/22/18 08:30 08/22/18 08:34 08/22/18 08:45 Temperature Pulse Rate 82 74 88 Respiratory Rate 34 H 37 H Blood Pressure 144/64 H Pulse Oximetry 98 91 L 08/22/18 09:00 08/22/18 09:15 08/22/18 09:30 Temperature Pulse Rate 76 84 83 Respiratory Rate 19 21 18 Blood Pressure 134/61 140/66 141/61 H Pulse Oximetry 93 L 97 97 08/22/18 09:45 08/22/18 10:00 08/22/18 10:06 Temperature Pulse Rate 85 85 79 Respiratory Rate 24 40 H 15 Blood Pressure 146/65 H 138/65 128/56 L Pulse Oximetry 95 95 95 08/22/18 10:15 08/22/18 10:30 08/22/18 10:45 Temperature Pulse Rate 73 93 H 78 Respiratory Rate 12 35 H 20 Blood Pressure 129/61 151/70 H 136/60 Pulse Oximetry 95 94 L 95 08/22/18 11:00 08/22/18 11:15 08/22/18 11:30 Temperature Pulse Rate 74 73 72 Respiratory Rate 19 21 24 Blood Pressure 140/62 137/55 L 139/65 Pulse Oximetry 95 94 L 94 L 08/22/18 11:35 08/22/18 11:45 08/22/18 12:00 Temperature 99.8 F H Pulse Rate 72 72 75 Respiratory Rate 24 24 14 Blood Pressure 139/62 148/67 H Pulse Oximetry 94 L 93 L 95 08/22/18 12:15 08/22/18 12:30 08/22/18 12:45 Temperature Pulse Rate 83 80 79 Respiratory Rate 32 H 31 H 23 Blood Pressure 152/71 H 147/70 H 146/69 H Pulse Oximetry 92 L 93 L 93 L 08/22/18 13:00 Temperature Pulse Rate 76 Respiratory Rate 21 Blood Pressure 133/60 Pulse Oximetry 93 L Intake & Output 08/21/18 08/22/18 08/22/18 18:59 06:59 18:59 Intake Total 2366.2 / 2366.2 1689 / 1689 1065 / 1065 Output Total 3200 / 3200 1800 / 1800 1400 / 1400 Balance -833.8 / -833.8 -111 / -111 -335 / -335 Weight 91.8 kg Intake: IV 2026.2 / 2026.2 1200 / 1200 1065 / 1065 Cleviprex Inj 25 mg In 50 ml @ 250 / 250 300 / 300 100 / 100 1 MG/HR 2 mls/hr IV.CONT TITRATE PRN Rx#:[id number] Precedex Inj 1,000 MCG In NS 250 / 250 500 / 500 Inj 240 ML @ 0.2 MCG/KG/HR 5.18 mls/hr IV.CONT TITRATE PRN Rx# :[id number] Versed Inj 100 mg In 100 ml @ 2 100 / 100 MG/HR 2 mls/hr IV.CONT TITRATE PRN Rx#:[id number] Azactam Inj 2 GM In NS Inj 100 200 / 200 100 / 100 100 / 100 ML @ 200 mls/hr IV.SIG Q8H SATYA Rx#:[id number] Magnesium Sulfate Inj 4 GM In 100 / 100 NS Inj 92 ML @ 25 mls/hr IV.SIG ONCE ONE Rx#:[id number] MVI-12 Inj 10 ML Thiamine Inj 511.2 / 511.2 100 MG Folvite Inj 1 MG In D5W- 1/2 NS Inj 500 ML @ 127.8 mls/ hr IV.SIG DAILY SATYA Rx#: [id number] KCl 20 mEq Premix Inj 20 meq In 200 / 200 200 / 200 100 / 100 100 ml @ 50 mls/hr IV.SIG Q2H PRN Rx#:[id number] Vancomycin Inj 1,500 MG In NS 515 / 515 515 / 515 Inj 500 ML @ 250 mls/hr IV.SIG Q18H SATYA Rx#:[id number] fentaNYL 10 mcg/mL Premix Drip 250 / 250 2,500 mcg In 250 ml @ 50 MCG/HR 5 mls/hr IV.SIG TITRATE PRN Rx #:[id number] Tube Feeding 40 / 40 89 / 89 Tube Irrigant 100 / 100 100 / 100 Water Bolus Amount 200 / 200 300 / 300 Output: Urine Amount (Catheter) 2800 / 2800 1800 / 1800 1400 / 1400 Indwelling Urethral Catheter 2800 / 2800 1800 / 1800 1400 / 1400 Gastric Drainage 400 / 400 Left Upper Quadrant 400 / 400 Other: Date of Last Bowel Movement 08/21/18 08/21/18 08/21/18 # Bowel Movements 2 0 - Urinary Catheter Management Indwelling Urethral Catheter Cath placed during this visit: no Condom Cath placed during this visit: no Straight Cath placed during this visit: no <Jaxon Jensen - Last Filed: 08/22/18 13:48> Results - Labs CBC & Chem 7: 08/21/18 03:14 08/21/18 11:53 Laboratory Results - last 24 hr 08/20/18 08/21/18 08/21/18 15:42 03:14 11:53 WBC 6.5 RBC 3.25 L Hgb 10.5 L Hct 30.2 L MCV 93.0 MCH 32.1 MCHC 34.6 RDW 14.2 Plt Count 459 H MPV 7.4 Neut % (Auto) 74.7 H Lymph % (Auto) 16.4 [place] % (Auto) 5.9 Eos % (Auto) 2.3 Baso % (Auto) 0.7 Neut # (Auto) 4.8 Lymph # (Auto) 1.1 [place] # (Auto) 0.4 Eos # (Auto) 0.1 Baso # (Auto) 0.0 WBC Differential . Differential Comment Auto diff final Sodium 144 143 Potassium 3.1 L 3.0 L Chloride 107 104 Carbon Dioxide 29.0 28.7 Anion Gap 8 10 BUN 15 12 Creatinine 0.94 0.85 Estimated GFR 83 L Greater than 89 Random Glucose 98 85 Calcium 8.6 8.5 Phosphorus 4.2 5.2 H D Magnesium 1.7 1.5 Total Bilirubin 0.4 AST 27 ALT 34 Alkaline Phosphatase 133 H Total Protein 6.6 D Albumin 2.4 L Vancomycin Trough 10.1 H Microbiology 08/18/18 11:45 Blood - Peripheral Aerobic Blood Culture - Preliminary No growth in 3 days 08/18/18 11:45 Blood - Peripheral Anaerobic Blood Culture - Preliminary No growth in 3 days 08/18/18 11:52 Blood - Peripheral Aerobic Blood Culture - Preliminary No growth in 3 days 08/18/18 11:52 Blood - Peripheral Anaerobic Blood Culture - Preliminary No growth in 3 days 08/17/18 03:20 Blood - Peripheral Aerobic Blood Culture - Preliminary No growth in 4 days 08/17/18 03:20 Blood - Peripheral Anaerobic Blood Culture - Preliminary No growth in 4 days 08/17/18 01:15 Blood - Peripheral Aerobic Blood Culture - Final Staphylococcus epidermidis 08/17/18 01:15 Blood - Peripheral Anaerobic Blood Culture - Preliminary No growth in 4 days - Imaging Impressions Chest X-Ray 08/21/18 06:00 CONCLUSION: Bibasilar areas of consolidation or atelectasis. Some degree of effusions may be present. Abdomen X-Ray 08/21/18 10:22 CONCLUSION: 1. Nonspecific marginally dilated air-filled colon. Differential considerations include mild colonic ileus. <Aileen Jack - Last Filed: 08/21/18 13:35> - Labs CBC & Chem 7: 08/22/18 04:05 08/22/18 04:05 Laboratory Results - last 24 hr 08/15/18 08/22/18 08/22/18 11:39 04:05 04:05 WBC 7.6 RBC 3.23 L Hgb 10.6 L Hct 29.6 L MCV 91.6 MCH 32.8 MCHC 35.8 RDW 14.0 Plt Count 510 H MPV 7.9 Neut % (Auto) 79.6 H Lymph % (Auto) 11.8 [place] % (Auto) 5.6 Eos % (Auto) 2.2 Baso % (Auto) 0.8 Neut # (Auto) 6.1 Lymph # (Auto) 0.9 L [place] # (Auto) 0.4 Eos # (Auto) 0.2 Baso # (Auto) 0.1 WBC Differential . Differential Comment Auto diff final Sodium 140 Potassium 3.1 L Chloride 105 Carbon Dioxide 27.3 Anion Gap 8 BUN 14 Creatinine 0.91 Estimated GFR 86 L Random Glucose 88 Calcium 8.7 Phosphorus 3.9 D Magnesium 2.0 Total Bilirubin 0.5 AST 29 ALT 32 Alkaline Phosphatase 118 H Total Protein 6.4 Albumin 2.5 L CSF Albumin 19.6 CSF IgG 2.2 Serum IgG 336 L Serum Albumin 2.0 L CSF IgG Index 0.67 H CSF IgG Synthesis Rate +2.6 Valproic Acid 13 L Microbiology 08/18/18 11:45 Blood - Peripheral Aerobic Blood Culture - Preliminary No growth in 4 days 08/18/18 11:45 Blood - Peripheral Anaerobic Blood Culture - Preliminary No growth in 4 days 08/18/18 11:52 Blood - Peripheral Aerobic Blood Culture - Preliminary No growth in 4 days 08/18/18 11:52 Blood - Peripheral Anaerobic Blood Culture - Preliminary No growth in 4 days 08/17/18 03:20 Blood - Peripheral Aerobic Blood Culture - Final No growth in 5 days 08/17/18 03:20 Blood - Peripheral Anaerobic Blood Culture - Final No growth in 5 days 08/17/18 01:15 Blood - Peripheral Aerobic Blood Culture - Final Staphylococcus epidermidis 08/17/18 01:15 Blood - Peripheral Anaerobic Blood Culture - Final No growth in 5 days - Imaging Impressions Abdomen X-Ray 08/22/18 06:00 CONCLUSION: No significant change. Chest X-Ray 08/22/18 06:00 CONCLUSION: Interval improvement in bibasilar opacity with mild residual left greater than right. There is a probable left effusion. Abdomen X-Ray 08/22/18 08:14 CONCLUSION: Interval improvement. Gastrostomy tube in good position. I see no significant distention. <Jaxon Jensen - Last Filed: 08/22/18 13:48> Assessment and Plan (1) Encounter for PEG (percutaneous endoscopic gastrostomy) Status: Acute Code(s): Z43.1 - Encounter for attention to gastrostomy - Plan Assessment Dysphagiapatient brought to the hospital after being found down in the garage, undergoing work up for etiology. MRI cervical spine consistent for hairline C6 fracture with no displacement. Patient has had witnessed jerking movements, EEG negative for any seizure activity. Unfortunately, he has been unable to be weaned from the vent. He underwent tracheostomy yesterday. Our service has been consulted for PEG tube placement. EGD with PEG (08/20/18) class B esophagitis, stomach appeared normal, duodenal mucosa normal in the entire examined duodenum, and PEG placed successfully. Patient does have noted 1 cm incision above where PEG tube is currently placed, consistent with unsuccessful first attempt. This incision is well approximated with no active drainage. (08/21/18) Abdominal distention status post PEG placement yesterdaydiscussed with pediatric cns who states that patient's abdomen was distended this morning. His PEG tube was placed to gravity, he has had approximately 500 cc of green gastric fluid drained. KUB done this morning shows nonspecific marginally dilated air-filled colon, differentials include mild colonic ileus. According to nursing staff patient has been having stool, states that it is loose. Abdomen is currently soft and bowel sounds are active. Discussed with nursing staff, will trial trickle tube feedings and see how patient tolerates. Can consider Reglan if needed, will hold off on this time given patient is having good stool output. Follow-up KUB in a.m. Plan Start trickle tube feeds Discussed with RN if patient becomes distended then stop tube feedings and place PEG tube back to gravity Follow-up KUB in a.m. Consider Reglan if no improvement Further recommendations to follow This patient has been seen and examined by myself and Dr. Jensen and this note is written on his behalf <Aileen Jack - Last Filed: 08/21/18 13:35> (1) Encounter for PEG (percutaneous endoscopic gastrostomy) Status: Acute Code(s): Z43.1 - Encounter for attention to gastrostomy - Attending Attestation Agree with above assessment and plan. Will recheck KUB in AM. Further recommendations to follow. <Jaxon Jensen - Last Filed: 08/22/18 13:48>
[2018-08-21] MEDS: Midazolam 100 MG/100 ML Inj 100 MG/100 ML BAG IV.CONT PRN (20:24)
[2018-08-21] MEDS: Haloperidol Inj 5 MG/ML Ampul IV.PUSH PRN (22:10)
[2018-08-22] MEDS: Oral Hygiene Kit OROPHARYNG SCH ×4 (00:43→16:05)
[2018-08-22] MEDS: Aztreonam Inj 2 GM in Sodium Chloride 0.9% Inj 100 ML IV.SIG SCH ×3 (00:43→16:09)
[2018-08-22] MEDS: Artificial Tears Opth Drops 15 ML Bottle EACH EYE SCH ×3 (00:44→16:05)
[2018-08-22] MEDS: Clevidipine Inj 25 MG/50 ML VIAL IV.CONT PRN ×6 (01:11→12:33)
[2018-08-22] MEDS: Heparin - SQ 10,000 UNITS/ML Vial SQ SCH ×3 (03:25→20:49)
--- NOTE | 2018-08-22 04:33 | XR ---
EXAM DATE: 08/22/2018 4:28 AM EST AGE/SEX: 58 years / Male INDICATIONS: Respiratory failure. CLINICAL DATA: This is the patient's subsequent encounter. Patient reports that signs and symptoms h ave been present for 3 weeks and indicates a pain score of Nonresponsive. MEDICAL/SURGICAL HISTORY: Hypertension. None. COMPARISON: C, CHEST 1V SINGLE AP, 08/21/2018. . FINDINGS: A single AP semierect portable view of the chest was obtained and again demonstrates a tracheostomy t ube in place. There has been an interval decrease in the hazy opacity at the right lung bases with mi ld residual. The costophrenic angle on the right is no longer blunted in appearance. The left costoph renic angle appears mildly blunted. The heart size is at the upper limits of normal. CONCLUSION: Interval improvement in bibasilar opacity with mild residual left greater than right. There is a prob able left effusion. Electronically signed by: Abel Jerez MD Board Certified Radiologist 08/22/2018 4:32 AM EST
--- NOTE | 2018-08-22 04:35 | XR ---
EXAM DATE: 08/22/2018 4:28 AM EST AGE/SEX: 58 years / Male INDICATIONS: Ileus. CLINICAL DATA: This is the patient's subsequent encounter. Patient reports that signs and symptoms h ave been present for 1 week and indicates a pain score of Nonresponsive. MEDICAL/SURGICAL HISTORY: Hypertension. None. COMPARISON: 08/21/2017 abdomen plain film. . FINDINGS: 2 AP supine views of the abdomen and pelvis were obtained. Gas and stool remains segmentally in the colon with mild gaseous dilatation. There is no evidence of free air or mass effect on the supine ginna dy. No abnormal masses, calcifications, or organomegaly is seen. The osseous structures are unremark able. CONCLUSION: No significant change. Electronically signed by: Abel Jerez MD Board Certified Radiologist 08/22/2018 4:33 AM EST
[2018-08-22] MEDS: Haloperidol Inj 5 MG/ML Ampul IV.PUSH PRN ×2 (05:15→10:46)
[2018-08-22] MEDS: Vancomycin Inj 1,500 MG in Sodium Chlor 0.9% Inj 500 ML IV.SIG SCH (05:15)
[2018-08-22 05:24] LABS: Baso # (Auto) 0.1 th/mm3 (0.0-0.2); Baso % (Auto) 0.8 % (0.0-2.0); Eos # (Auto) 0.2 th/mm3 (0.0-0.4); Eos % (Auto) 2.2 % (0.0-4.0); Hematocrit 29.6 % (39.0-51.0); Hemoglobin 10.6 gm/dL (13.0-17.0); Lymph # (Auto) 0.9 th/mm3 (1.0-4.8); Lymph % (Auto) 11.8 % (9.0-44.0); Mean Corpuscular HGB Conc 35.8 % (32.0-36.0); Mean Corpuscular Hemoglobin 32.8 pg (27.0-34.0); Mean Corpuscular Volume 91.6 fL (80.0-100.0); Mean Platelet Volume 7.9 fL (7.0-11.0); Mono # (Auto) 0.4 th/mm3 (0.0-0.9); Mono % (Auto) 5.6 % (0.0-8.0); Neut # (Auto) 6.1 th/mm3 (1.8-7.7); Neut % (Auto) 79.6 % (16.0-70.0); Platelet Count 510 th/mm3 (150-450); Red Blood Count 3.23 mil/mm3 (4.50-5.90); White Blood Count 7.6 th/mm3 (4.0-11.0)
[2018-08-22 05:48] LABS: Albumin 2.5 g/dL (3.4-5.0); Anion Gap 8 meq/L (5-15); Aspartate Aminotransferase 29 U/L (15-37); Blood Urea Nitrogen 14 mg/dL (7-18); Calcium 8.7 mg/dL (8.5-10.1); Carbon Dioxide 27.3 meq/L (21.0-32.0); Chloride 105 meq/L (98-107); Glomerular Filtration Rate 86 mL/min (>89); Glucose,Random 88 mg/dL (74-106); Potassium 3.1 meq/L (3.5-5.1); Sodium 140 meq/L (136-145)
[2018-08-22 05:49] LABS: Alanine Aminotransferase 32 U/L (12-78); Phosphorus 3.9 mg/dL (2.5-4.9)
[2018-08-22 05:52] LABS: Alkaline Phosphatase 118 U/L (45-117); Total Protein 6.4 g/dL (6.4-8.2); Valproic Acid 13 mcg/mL (50-100)
[2018-08-22] MEDS: Dexmedetomidine Inj 1,000 MCG in Sodium Chlor 0.9% Inj 240 ML IV.CONT PRN ×2 (06:58→15:43)
--- NOTE | 2018-08-22 08:20 | P.PNCC ---
Subjective Subjective Remarks/Hospital Course: 08/09: 58-year-old male who was found down in his friend's garage this morning. He has a history of alcohol abuse. He recently sold his house and was staying at a friend's home. Reportedly he was due to fly later today. Patient was brought to the ER by EMS and was noted to have involuntary movements with jerking movements involving upper and lower extremities as well as his head. He received Ativan 3 mg IV and was loaded with Keppra. Initially stroke alert was called. Head CT was negative for any bleed however there was question of C6 fracture. Neurology and neurosurgery were consulted. Patient was loaded with IV Cerebyx and Vimpat by neurology. He had a [place] J collar placed after placing hard cervical collar by neurosurgery. When I evaluated the patient in the ER he was still having involuntary movements which appeared to be episodic with occasional twitchings on his face and nystagmus. This did not appear to be generalized tonic-clonic convulsions however appeared more like an extrapyramidal reaction. I ordered a stat EEG. Patient moving around too much to obtain MRI at this time. His urine tox screen was negative. He was positive for alcohol. Patient nonverbal. His involuntary movements get exaggerated on stimulation. He was reportedly completely normal yesterday. 08/10: Patient had an episode of emesis last night followed by labored breathing. He continued to have involuntary movements. He was intubated and placed on mechanical ventilation. Currently sedated with propofol, orally intubated on mechanical ventilation. Awaiting MRI brain and C-spine. EEG done yesterday did not show any seizure activity. 08/11: Sedated, orally intubated on mechanical ventilation. MRI brain unremarkable. MRI C-spine with hairline C6 fracture with no displacement. 08/12: Remains sedated, orally intubated on mechanical ventilation. Reintubated yesterday for significant hypoxia and respiratory distress with O2 sats dropping to the 70s despite nonrebreather facemask. CT pulmonary angiogram was negative for PE and showed bilateral infiltrates at the bases. 08/13: Remains sedated, orally intubated on mechanical ventilation. On propofol /fentanyl GTT. Starting tube feeds 08/14: T-max 99.4. Currently 98.3. Scheduled for IR for lumbar puncture today. Patient acute injury. Patient is on vancomycin, acyclovir and did receive IV contrast recently. Renal ultrasound ordered. Urine eosinophils, sodium and creatinine ordered. Arousable and does follow commands on the ventilator. Breakthrough agitation/involuntary systemic movements noted 08/15: Plan for lumbar puncture today. Will likely try sedation vacation overnight. See 4 mg of midazolam overnight due to agitation. Appears comfortable. Intermittently follows commands. 08/16: Lumbar puncture from yesterday accomplished. We will try sedation vacation again today and tried on dexmedetomidine drip. Rash is much improved. Discontinued lacosamide possible source of rash. Remains leukopenic and elevated eosinophils. 08/17: Low-grade fevers overnight. Blood cultures x2, sputum performed. Will start on piperacillin/tazobactam vancomycin. Extubated today. Tolerated about 2 hours but became hypoxic on 100% nonrebreather and tachypneic. Intubated with axial traction. Will need tracheostomy has failed extubation x2 08/18: T-max 100.1. Failed extubation requiring reintubation. Tracheostomy planned for 10 AM today. 08/19: Afebrile overnight. Chest x-ray following tracheostomy demonstrates tube in good position safely above the tory. Basilar infiltrates persist but clearing. On spontaneous breathing trial earlier today he had apneic episodes. With no sedation he becomes extremely agitated however. 08/20: Percutaneous gastrostomy tube plan for today. Very agitated. Remains on clevidipine drip. 08/21: Status post percutaneous gastrostomy tube 08/20. Some distention. Currently drainage. Will check KUB. Very agitated requiring midazolam drip. We will consult neuropsychology for assistance. SUBJECTIVE: 08/22: Low-grade fevers overnight. Remains on multiple sedatives. Adjusted increased valproic acid and quetiapine yesterday per neuropsychiatrist rec. On trickle feeds. Objective Vital Signs / I&O: Vital Signs 08/21/18 08:30 08/21/18 08:45 08/21/18 09:00 Temperature Pulse Rate 64 72 70 Respiratory Rate 10 L 28 H 11 L Blood Pressure 154/75 H 152/76 H 155/79 H Pulse Oximetry 100 100 100 08/21/18 09:15 08/21/18 09:30 08/21/18 09:45 Temperature Pulse Rate 75 70 78 Respiratory Rate 37 H 15 23 Blood Pressure 156/80 H 153/76 H 162/81 H Pulse Oximetry 100 98 96 08/21/18 10:00 08/21/18 10:15 08/21/18 10:30 Temperature Pulse Rate 79 73 67 Respiratory Rate 12 17 17 Blood Pressure 146/79 H 154/76 H 146/70 H Pulse Oximetry 99 100 99 08/21/18 10:45 08/21/18 10:52 08/21/18 11:00 Temperature Pulse Rate 66 63 Respiratory Rate 17 16 13 Blood Pressure 146/68 H 176/84 H Pulse Oximetry 99 99 08/21/18 11:15 08/21/18 11:30 08/21/18 11:45 Temperature Pulse Rate 64 72 75 Respiratory Rate 16 25 H 13 Blood Pressure 137/60 164/83 H 155/73 H Pulse Oximetry 98 98 98 08/21/18 11:55 08/21/18 12:00 08/21/18 12:15 Temperature 98.6 F Pulse Rate 69 74 70 Respiratory Rate 10 L 15 19 Blood Pressure 157/74 H 163/77 H Pulse Oximetry 98 99 97 08/21/18 12:30 08/21/18 12:45 08/21/18 13:00 Temperature Pulse Rate 72 74 71 Respiratory Rate 17 16 17 Blood Pressure 161/75 H 163/76 H 164/73 H Pulse Oximetry 97 96 96 08/21/18 13:15 08/21/18 13:30 08/21/18 13:45 Temperature Pulse Rate 70 77 74 Respiratory Rate 16 20 16 Blood Pressure 151/69 H 168/76 H 152/68 H Pulse Oximetry 97 97 98 08/21/18 14:00 08/21/18 14:15 08/21/18 14:30 Temperature Pulse Rate 51 L 76 76 Respiratory Rate 14 33 H 36 H Blood Pressure 106/51 L 119/57 L 129/58 L Pulse Oximetry 94 L 95 95 08/21/18 14:45 08/21/18 15:00 08/21/18 15:15 Temperature Pulse Rate 70 68 69 Respiratory Rate 17 17 18 Blood Pressure 121/58 L 126/56 L 126/57 L Pulse Oximetry 95 96 95 08/21/18 15:30 08/21/18 15:35 08/21/18 15:45 Temperature Pulse Rate 72 75 71 Respiratory Rate 27 H 17 14 Blood Pressure 131/60 133/61 Pulse Oximetry 95 94 L 98 08/21/18 16:00 08/21/18 16:15 08/21/18 16:30 Temperature 98.8 F Pulse Rate 60 69 66 Respiratory Rate 27 H 18 17 Blood Pressure 134/60 123/59 L 110/55 L Pulse Oximetry 97 95 97 08/21/18 16:45 08/21/18 17:00 08/21/18 17:15 Temperature Pulse Rate 63 62 62 Respiratory Rate 16 16 16 Blood Pressure 112/53 L 109/55 L 113/55 L Pulse Oximetry 97 97 97 08/21/18 17:30 08/21/18 17:45 08/21/18 18:00 Temperature Pulse Rate 61 61 53 L Respiratory Rate 15 15 15 Blood Pressure 113/56 L 114/58 L 112/53 L Pulse Oximetry 97 97 96 08/21/18 18:15 08/21/18 18:30 08/21/18 18:45 Temperature Pulse Rate 72 68 75 Respiratory Rate 34 H 25 H 27 H Blood Pressure 124/59 L 119/55 L 130/60 Pulse Oximetry 99 91 L 91 L 08/21/18 19:54 08/21/18 19:55 08/21/18 20:00 Temperature Pulse Rate 74 80 Respiratory Rate 20 16 Blood Pressure Pulse Oximetry 96 99 08/21/18 22:28 08/22/18 00:30 08/22/18 00:45 Temperature 99.6 F Pulse Rate 88 94 H Respiratory Rate 18 16 22 Blood Pressure 171/78 H 175/69 H Pulse Oximetry 94 L 96 95 08/22/18 00:52 08/22/18 00:54 08/22/18 01:00 Temperature Pulse Rate 82 81 Respiratory Rate 19 17 20 Blood Pressure 156/65 H Pulse Oximetry 97 97 08/22/18 01:15 08/22/18 01:30 08/22/18 01:45 Temperature Pulse Rate 83 83 93 H Respiratory Rate 19 19 22 Blood Pressure 149/65 H 152/58 H 173/78 H Pulse Oximetry 95 95 95 08/22/18 02:00 08/22/18 02:15 08/22/18 02:30 Temperature Pulse Rate 92 H 81 80 Respiratory Rate 16 20 19 Blood Pressure 175/79 H 150/65 H 148/65 H Pulse Oximetry 95 96 97 08/22/18 02:45 08/22/18 03:00 08/22/18 03:15 Temperature Pulse Rate 96 H 91 H 91 H Respiratory Rate 16 16 24 Blood Pressure 164/74 H 153/67 H 153/74 H Pulse Oximetry 96 96 97 08/22/18 03:30 08/22/18 03:45 08/22/18 04:00 Temperature 99.2 F Pulse Rate 78 81 78 Respiratory Rate 17 19 18 Blood Pressure 133/64 136/75 138/63 Pulse Oximetry 96 96 97 08/22/18 04:15 08/22/18 04:30 08/22/18 04:36 Temperature Pulse Rate 74 72 Respiratory Rate 17 17 17 Blood Pressure 130/58 L 130/61 Pulse Oximetry 97 97 96 08/22/18 04:39 08/22/18 04:45 08/22/18 05:00 Temperature Pulse Rate 73 77 77 Respiratory Rate 12 17 19 Blood Pressure 139/63 144/65 H Pulse Oximetry 97 97 08/22/18 05:15 08/22/18 05:30 08/22/18 05:45 Temperature Pulse Rate 78 76 76 Respiratory Rate 19 17 18 Blood Pressure 142/61 H 140/61 127/59 L Pulse Oximetry 95 96 95 08/22/18 06:00 08/22/18 06:15 08/22/18 06:29 Temperature Pulse Rate 70 70 70 Respiratory Rate 17 17 17 Blood Pressure 123/56 L 123/57 L Pulse Oximetry 95 95 95 08/22/18 06:30 08/22/18 06:45 08/22/18 07:00 Temperature Pulse Rate 70 70 71 Respiratory Rate 17 17 16 Blood Pressure 126/58 L 127/59 L 131/60 Pulse Oximetry 95 96 96 08/22/18 07:15 08/22/18 07:30 Temperature Pulse Rate 71 71 Respiratory Rate 17 17 Blood Pressure 131/60 132/61 Pulse Oximetry 96 96 Intake & Output 08/21/18 08/22/18 08/22/18 18:59 06:59 18:59 Intake Total 2366.2 / 2366.2 1689 / 1689 515 / 515 Output Total 3200 / 3200 1800 / 1800 Balance -833.8 / -833.8 -111 / -111 515 / 515 Weight 91.8 kg Intake: IV 2026.2 / 2026.2 1200 / 1200 515 / 515 Cleviprex Inj 25 mg In 50 ml @ 250 / 250 300 / 300 1 MG/HR 2 mls/hr IV.CONT TITRATE PRN Rx#:[id number] Precedex Inj 1,000 MCG In NS 250 / 250 500 / 500 Inj 240 ML @ 0.2 MCG/KG/HR 5.18 mls/hr IV.CONT TITRATE PRN Rx# :[id number] Versed Inj 100 mg In 100 ml @ 2 100 / 100 MG/HR 2 mls/hr IV.CONT TITRATE PRN Rx#:[id number] Azactam Inj 2 GM In NS Inj 100 200 / 200 100 / 100 ML @ 200 mls/hr IV.SIG Q8H SATYA Rx#:[id number] Magnesium Sulfate Inj 4 GM In 100 / 100 NS Inj 92 ML @ 25 mls/hr IV.SIG ONCE ONE Rx#:[id number] MVI-12 Inj 10 ML Thiamine Inj 511.2 / 511.2 100 MG Folvite Inj 1 MG In D5W- 1/2 NS Inj 500 ML @ 127.8 mls/ hr IV.SIG DAILY SATYA Rx#: [id number] KCl 20 mEq Premix Inj 20 meq In 200 / 200 200 / 200 100 ml @ 50 mls/hr IV.SIG Q2H PRN Rx#:[id number] Vancomycin Inj 1,500 MG In NS 515 / 515 515 / 515 Inj 500 ML @ 250 mls/hr IV.SIG Q18H SATYA Rx#:[id number] Tube Feeding 40 / 40 89 / 89 Tube Irrigant 100 / 100 100 / 100 Water Bolus Amount 200 / 200 300 / 300 Output: Urine Amount (Catheter) 2800 / 2800 1800 / 1800 Indwelling Urethral Catheter 2800 / 2800 1800 / 1800 Gastric Drainage 400 / 400 Left Upper Quadrant 400 / 400 Other: Date of Last Bowel Movement 08/21/18 08/21/18 # Bowel Movements 2 0 Result Diagrams: 08/22/18 04:05 08/22/18 04:05 Other Results: Microbiology 08/18/18 11:45 Blood - Peripheral Aerobic Blood Culture - Preliminary No growth in 3 days 08/18/18 11:45 Blood - Peripheral Anaerobic Blood Culture - Preliminary No growth in 3 days 08/18/18 11:52 Blood - Peripheral Aerobic Blood Culture - Preliminary No growth in 3 days 08/18/18 11:52 Blood - Peripheral Anaerobic Blood Culture - Preliminary No growth in 3 days 08/17/18 03:20 Blood - Peripheral Aerobic Blood Culture - Preliminary No growth in 4 days 08/17/18 03:20 Blood - Peripheral Anaerobic Blood Culture - Preliminary No growth in 4 days 08/17/18 01:15 Blood - Peripheral Aerobic Blood Culture - Final Staphylococcus epidermidis 08/17/18 01:15 Blood - Peripheral Anaerobic Blood Culture - Preliminary No growth in 4 days 08/17/18 00:30 Sputum - Endotracheal Gram Stain - Final 08/17/18 00:30 Sputum - Endotracheal Sputum Culture - Final No growth in 48 hours 08/11/18 14:29 Blood - Peripheral Aerobic Blood Culture - Final No growth in 5 days 08/11/18 14:29 Blood - Peripheral Anaerobic Blood Culture - Final No growth in 5 days 08/11/18 14:24 Blood - Peripheral Aerobic Blood Culture - Final No growth in 5 days 08/11/18 14:24 Blood - Peripheral Anaerobic Blood Culture - Final No growth in 5 days 08/11/18 15:00 Sputum - Endotracheal Gram Stain - Final 08/11/18 15:00 Sputum - Endotracheal Sputum Culture - Final Heavy growth normal respiratory sherman 08/09/18 11:00 Catheterized Urine Urine Culture - Final No growth in 48 hours Imaging: Head CT 08/09/18 09:20 CONCLUSION: 1. No acute intracranial abnormality is seen. 2. Mild widening of the cortical sulci which could suggest some atrophy. Report was called by [Dr. Dutton to at 9:49 AM. ] Chest X-Ray 08/09/18 09:21 CONCLUSION: No acute cardiopulmonary process. Cervical Spine CT 08/09/18 09:23 CONCLUSION: 1. Fracturing through anterior flowing spurs at the anterior C6 level with the fracture extending into the anterior inferior left lateral aspect of the C6 vertebral body. Empty displacement is not seen. No other possible fractures are seen. 2. 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 3. Degenerative change. Head CTA 08/09/18 09:28 CONCLUSION: Negative CTA. Report was called by [Dr. Dutton to Dr. Faustin. A message was left on the voicemail. ] Neck CTA 08/09/18 09:28 CONCLUSION: Negative CTA of the neck. Cervical Spine MRI 08/10/18 00:00 CONCLUSION: 1. Fracturing through the prominent flowing spurs at the C6 level and extending into the anterior inferior aspect of C6 vertebral body without displacement. Minimal edema seen around the fracture site. 2. Prominent spurring extending from C4 to into the thoracic spine consistent with DISH. 3. Mild central disc protrusion at the C3-C4 level. 4. Mild disc protrusion with the apex at the left lateral recess region at the C5-C6 level. 5. Neural foraminal narrowing at the C3-C4 and C5-C6 levels. Chest X-Ray 08/10/18 00:00 CONCLUSION: ET tube in good position. Lungs are grossly clear. Head MRI 08/10/18 00:00 CONCLUSION: 1. No acute intracranial abnormality. 2. Mild atrophy. Lumbar Spine CT 08/10/18 00:00 CONCLUSION: 1. No acute abnormality seen. 2. Prominent spur seen throughout the thoracic and lumbar spine likely from DISH. 3. Mild disc bulges at the L3-L4 and L4-L5 levels. 4. Lower lumbar facet hypertrophy. Thoracic Spine CT 08/10/18 00:00 CONCLUSION: 1. No fracture is seen. 2. Prominent spurring seen throughout the thoracic spine but be secondary to DISH. 3. Subpleural areas of consolidation or atelectasis at the posterior lower lungs. Chest CTA 08/11/18 00:00 CONCLUSION: 1. No evidence of any pulmonary embolism. 2. There are bilateral infiltrates predominantly in the posterior mid to lower lung villarreal. 3. 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 Chest X-Ray 08/11/18 13:29 CONCLUSION: Increasing bibasal infiltrates. Venous Doppler Study 08/12/18 00:00 CONCLUSION: 1. The study is negative for bilateral lower extremity deep venous thrombosis. Chest X-Ray 08/13/18 10:17 CONCLUSION: Mild improvement in the bibasilar pulmonary infiltrates compared to the prior exam. Venous Doppler Study 08/14/18 00:00 CONCLUSION: 1. Occlusive and nonocclusive thrombus within the bilateral cephalic veins. Abdomen/Bladder Ultrasound 08/14/18 07:24 CONCLUSION: 1. Mild prominence of the right collecting system suggestive of some mild hydronephrosis. 2. The left kidney is unremarkable. 3. The urinary bladder appears to be distended with a volume of 1554 mL. Lumbar Puncture Fluoroscopy 08/15/18 12:27 CONCLUSION: 1. Uncomplicated fluoroscopically guided lumbar puncture. Chest X-Ray 08/16/18 06:00 CONCLUSION: Modest worsening parenchymal consolidation and small effusions at each base. Venous Doppler Study 08/17/18 00:00 CONCLUSION: 1. Occlusive thrombus of the cephalic veins bilaterally. No other venous thrombosis. Chest X-Ray 08/17/18 09:51 CONCLUSION: Satisfactory position of endotracheal and nasogastric tubes Persistent significant mid lung and basilar opacity without significant improvement Chest X-Ray 08/18/18 10:46 CONCLUSION: Trach tube in good position. There is no pneumothorax Chest X-Ray 08/21/18 06:00 CONCLUSION: Bibasilar areas of consolidation or atelectasis. Some degree of effusions may be present. Abdomen X-Ray 08/21/18 10:22 CONCLUSION: 1. Nonspecific marginally dilated air-filled colon. Differential considerations include mild colonic ileus. Abdomen X-Ray 08/22/18 06:00 CONCLUSION: No significant change. Chest X-Ray 08/22/18 06:00 CONCLUSION: Interval improvement in bibasilar opacity with mild residual left greater than right. There is a probable left effusion. Objective Remarks: GENERAL: 58-year-old male on mechanical ventilation via tracheostomy arousable no acute distress SKIN: Warm and dry. Continued diffuse maculopapular rash blanchable. Involving face, thorax and lower extremities improved. HEAD: Atraumatic. Normocephalic. EYES: Pupils equal and round. No scleral icterus. No injection or drainage. ENT: No nasal bleeding or discharge. Mucous membranes pink and moist. NECK: Trachea midline. Tracheostomy site clean and dry, tube well secured. CARDIOVASCULAR: Regular rate and rhythm. S1, S2. No S4. No murmur, rub. No JVD. RESPIRATORY: No accessory muscle use. Persistent coarse crackles in the bases. Plentiful mobile secretions. GASTROINTESTINAL: Abdomen soft, non-tender, slightly distended. Hypoactive bowel sounds are appreciated. PEG tube site is clean dry and intact. MUSCULOSKELETAL: Extremities with trace lower extremity peripheral edema. No obvious deformities. NEUROLOGICAL: Remains arousable on the ventilator, nods head to simple questions.. Moving all 4 extremities spontaneously. Assessment and Plan - Assessment and Plan Plan: Neuro/Psych: Acute toxic metabolic encephalopathy Involuntary movements -EEG 08/09- for epileptiform activity Anterior C6 fracture -[place] J collar times 6 weeks EtOH abuse/withdrawal. Level 114 admission Currently on fentanyl drip at 00 william grams an hour and midazolam drip at 5 mg an hour for sedation/analgesia while intubated Dexmedetomidine drip added 08/14 for weaning currently 1.0 m/kg/h Follow neuro checks. Neurology neurosurgery consulted. EEG done in ER did not reveal any seizure activity with ongoing involuntary movements. MRI brain unremarkable, MRI C-spine nondisplaced C6 fracture, continue [place] J collar for 6 weeks per neurosurgery. Aspirin placed on hold for lumbar puncture. Okay to resume dIscontinued lacosamide 100 mg IV twice daily secondary to rash Started thiamine/MVI/folic acid daily and history of EtOH abuse Currently on chlordiazepoxide 50 mg mg 3 times daily. Currently on quetiapine 75 mg 3 times daily Currently on Depakene 250 mg 3 times daily Oxycodone 5 mg every 6 hours Neurology started acyclovir IV while awaiting lumbar puncture. This discontinued 08/15 with negative HSV Neuropsychiatric consult for assistance weaning Cardiovascular: Hypertensive emergency Elevated cholesterol/total Elevated HDL Rhabdomyolysis downtrending CPK to 1000 Initially was hypertensive on arrival. Hydralazine and labetalol and clevidipine drip as needed. Continue carvedilol 12.5 mg p.o. twice daily. Currently on hydralazine 100 mg 3 times daily, isoSorbide dinitrate 20 mg 3 times daily Add lisinopril 5 mg mg twice daily amlodipine 10 mg daily Troponin 0.04 Pulmonary: Acute hypoxic hypercapnic respiratory failure Status post percutaneous tracheostomy 08/[address] Conn Intubated for airway protection and placed on mechanical ventilation following episode of emesis with question of aspiration on 08/10 AM. Extubated 08/17 but reintubated same day PRVC ventilation 16/08/23/39 vent bundle, Albuterol/ipratropium aerosols every 4 hours with albuterol aerosols every 2 hours as needed dyspnea tolerated CPAP trial and extubated on 08/11 however about 5 hours following extubation and required reintubation for hypoxic respiratory failure of unclear etiology. CT pulmonary angiogram negative for PE but possible right subclavian thrombus. Check upper extremity Dopplers revealed superficial thrombus Consulted pulmonary for further evaluation of hypoxic respiratory failure X-ray chest in a.m. 08/23 GI/liver: Elevated transaminases downward trending Hypoalbuminemia with moderate protein calorie malnutrition Status post PEG by Dr. Jensen 08/20 Ileus Nutrition recommends tube feeds with Nepro goal 50 cc an hour and advance to goal as tolerated. Currently at 20 cc an hour. Check KUB now Famotidine 20 mg daily for GI prophylaxis Docusate sodium/senna 1 tablet twice daily for bowel regimen. Added polyethylene glycol 17 g twice daily and lactulose 30 cc twice daily Negative hepatitis panel Started metoclopramide 5 every 8 FEN/renal/: Acute kidney injury resolving Hypokalemia Urinary retention with mild bilateral hydronephrosis IV hydration, strict intake output, monitor and replete electrolytes, follow BUN /creatinine. Bicarbonate drip discontinued 08/13. Free water 200 cc every 8 hours Avoid nephrotoxic medications. Continue Goff as needed for urinary retention. Recheck potassium this evening replace per protocol. ID: [id number] discontinued vancomycin, piperacillin/tazobactam and acyclovir. Watch for fever/leukocytosis Blood cultures x21 10/10 no growth to date repeat blood cultures 08/17 and sputum pending Sputum 08/11 no growth to date Number puncture with IR today 08/15-negative HSV. Started vancomycin, piperacillin/tazobactam 08/17 3 discontinued Zosyn 08/18 due to rash. Started aztreonam 2 g IV every 8 hours Endocrine: Watch for hyperglycemia, SSI for glycemic control with aspart insulin/low regimen every 6 hours Normal TSH Heme: Normocytic anemia Thrombocytosis Documentation of prior possible right subclavian occlusion -negative Doppler Bilateral cephalic occlusive and nonocclusive superficial venous thrombosis Follow CBC. No indication for transfusion of blood products at this time Subcu heparin DVT prophylaxis MSK: Diffuse idiopathic skeletal hyperostosis drug rash possible DR VANDA Weight loss encouraged PT evaluate and treat On IV famotidine, diphenhydramine. Prophylaxis: SCDs. heparin 5000 units subcutaneously every 8 hourly 24 hours post lumbar puncture, famotidine for GI prophylaxis Level 3 follow-up
--- NOTE | 2018-08-22 08:41 | P.PNNPSY ---
- Behavior Mild: Impulsive/agitated - Cognitive Moderate: Cognitive, Attention/concentration, Confused/orientation, Insight/ awareness, Judgment/problem solving, Memory - Progress Notes/Response to Treatment Contents of Sessions: Adjustment, Level of consciousness Time with Patient: 30 minutes Premorbid Psychological Status: Premorbid Cognitive, Emotional and Behavioral Status: Tenuous. The patient has high school years of education and a sporadic work history prior to this injury. The patient has possible prior psychiatric difficulties, as described above. Substance abuse history includes ETOH. Behavioral Reactions of Patient and Family/Support System: Tenuous. The patients family is experiencing ongoing issues of adjustment given the nature of the injury, and this aspect of recovery will require ongoing monitoring. Emotional/Behavioral Status of Patient and Family/Support System: Tenuous. Pertinent issues, if appropriate to this patients clinical care, are described in detail above. Maximizing Acute Care Outcome: The patient is presently managed on Seroquel 50 BID and VPA 250 BID and Librium and Versed. Consider increasing Seroquel to 75/75/100 and VPA to 250 TID, with a PRN Haldol, with goal of bringing agitation/restlessness down to below a total score of 21 on all subscores of the ABS, and so we can d/c benzo's which may be contributing to his agitation/confusion. Presently he is at 24.5 on the disinhibition subscore. He is generally past BEREKET at this point, successfully managed throughout his critical care treatment thus far. Promote as normal as possible sleep wake cycle, and 100 HS of Seroquel may assist in this endeavor. At this point in the recovery process, the patient does not have cognitive capacity as the patient is unable to understand a situation and its likely consequences, nor is the patient able to manipulate information rationally. Cognitive capacity will be assessed throughout the recovery process. Anticipated Problems: Ongoing areas of concern will include behavioral impulsivity, lack of insight and judgment, which is expected to improve with time and treatment. Treatment Plan: This clinician will continue to follow with you throughout the course of this patients critical care treatment, and I will be available to meet with the patients family/support system to facilitate their understanding and the ongoing care of their family member. The goals of neuropsychological intervention shall be both educational and supportive to the family/support system as is deemed clinically appropriate. Disinhibition Score: 29.75 Aggression Score: 14.00 Lability Score: 14.00 Agitated Behavior Total Score: 23 Impression: 58 year old male with toxic metabolic encephalopathy and fluctuating agitation level, with main driver license agent being disinhibition (less so for aggression or lability) . Progress Note Narrative: Day 13 of hospitalization. The patient agitation remains as he recuperates. Recent ABS scores are 23 (29.8, 14,14) with goal of below 21 on all scores, main driver license agent remains disinhibition. He required PRN Haldol this am at 0515. Neurobehavioral medications adjusted to Seroquel 75/75/75 and VPA 250 TID. This will likely take a couple days to get full control. Suggest keeping Haldol PRN (which will serve as a flag that we are not there yet), and maintain normal sleep wake cycles, and as such suggest increasing HS Seroquel dose to 100HS. Over the weekend, please feel free to call on my cell to help ensure an optimal therapeutic outcome. I will follow closely. - Diagnosis (1) Delirium due to general medical condition Status: Acute
[2018-08-22] MEDS: Famotidine PF Inj 20 MG/2 ML Vial IV.PUSH SCH ×2 (08:58→20:50)
[2018-08-22] MEDS: Aspirin 300 MG Supp RECTAL SCH (09:03)
[2018-08-22] MEDS: QUEtiapine 25 MG Tablet PO SCH ×3 (09:04→17:24)
[2018-08-22] MEDS: Chlorhexidine 0.12% Oral Kit 15 ML UDC OROPHARYNG SCH ×2 (09:04→20:51)
[2018-08-22] MEDS: Folic Acid 1 MG Tablet PO SCH (09:04)
[2018-08-22] MEDS: chlordiazePOXIDE 25 MG Capsule PO SCH ×2 (09:05→20:49)
[2018-08-22] MEDS: Carvedilol 12.5 MG Tablet PO SCH ×2 (09:05→20:49)
[2018-08-22] MEDS: amLODIPine 5 MG Tablet PO SCH (09:05)
[2018-08-22] MEDS: Docusate Sodium Liq 100 MG/10 ML UDC G-TUBE SCH ×2 (09:07→20:49)
[2018-08-22] MEDS: Polyethylene Glycol 3350 17 GM Packet PO SCH (09:07)
[2018-08-22] MEDS: Lisinopril 5 MG Tablet PO SCH ×2 (09:14→20:50)
[2018-08-22] MEDS: Multivitamin Inj 10 ML, Thiamine Inj 100 MG, Folic Acid Inj 1 MG in Dextrose 5%/NaCl 0.... IV.SIG SCH (09:20)
[2018-08-22] MEDS: Potassium Chlor 20 mEq Premix 20 MEQ/100 ML PIGGYBACK IV.SIG PRN ×4 (09:32→16:11)
--- NOTE | 2018-08-22 09:40 | XR ---
EXAM DATE: 08/22/2018 9:38 AM EST AGE/SEX: 58 years / Male INDICATIONS: Distention. CLINICAL DATA: This is the patient's initial encounter. Patient reports that signs and symptoms have been present for 1 week and indicates a pain score of Nonresponsive. MEDICAL/SURGICAL HISTORY: Hypertension. None. COMPARISON: C, ABDOMEN 1V KUB, 08/22/2018. . FINDINGS: Gastrostomy tube in good position. No significant distention of either large or small bowel. Minimal gas is seen in the transverse and descending colon. There is no definite free air CONCLUSION: Interval improvement. Gastrostomy tube in good position. I see no significant distention. Electronically signed by: Devin Zaragoza MD Board Certified Radiologist 08/22/2018 9:39 AM EST
--- NOTE | 2018-08-22 10:18 | P.PNPL ---
Subjective Interval history: Patient is on ventilator via trach, on CPAP with PS 10, PEEP:5 and FIO2: 30%. CXR today improvement in bibasilar opacity. On Versed, Fentanyl and Precedex for sedation. Afebrile. Physical Exam Vital signs: Vital Signs 08/21/18 10:15 08/21/18 10:30 08/21/18 10:45 Temperature Pulse Rate 73 67 66 Respiratory Rate 17 17 17 Blood Pressure 154/76 H 146/70 H 146/68 H Pulse Oximetry 100 99 99 08/21/18 10:52 08/21/18 11:00 08/21/18 11:15 Temperature Pulse Rate 63 64 Respiratory Rate 16 13 16 Blood Pressure 176/84 H 137/60 Pulse Oximetry 99 98 08/21/18 11:30 08/21/18 11:45 08/21/18 11:55 Temperature Pulse Rate 72 75 69 Respiratory Rate 25 H 13 10 L Blood Pressure 164/83 H 155/73 H Pulse Oximetry 98 98 98 08/21/18 12:00 08/21/18 12:15 08/21/18 12:30 Temperature 98.6 F Pulse Rate 74 70 72 Respiratory Rate 15 19 17 Blood Pressure 157/74 H 163/77 H 161/75 H Pulse Oximetry 99 97 97 08/21/18 12:45 08/21/18 13:00 08/21/18 13:15 Temperature Pulse Rate 74 71 70 Respiratory Rate 16 17 16 Blood Pressure 163/76 H 164/73 H 151/69 H Pulse Oximetry 96 96 97 08/21/18 13:30 08/21/18 13:45 08/21/18 14:00 Temperature Pulse Rate 77 74 51 L Respiratory Rate 20 16 14 Blood Pressure 168/76 H 152/68 H 106/51 L Pulse Oximetry 97 98 94 L 08/21/18 14:15 08/21/18 14:30 08/21/18 14:45 Temperature Pulse Rate 76 76 70 Respiratory Rate 33 H 36 H 17 Blood Pressure 119/57 L 129/58 L 121/58 L Pulse Oximetry 95 95 95 08/21/18 15:00 08/21/18 15:15 08/21/18 15:30 Temperature Pulse Rate 68 69 72 Respiratory Rate 17 18 27 H Blood Pressure 126/56 L 126/57 L 131/60 Pulse Oximetry 96 95 95 08/21/18 15:35 08/21/18 15:45 08/21/18 16:00 Temperature 98.8 F Pulse Rate 75 71 60 Respiratory Rate 17 14 27 H Blood Pressure 133/61 134/60 Pulse Oximetry 94 L 98 97 08/21/18 16:15 08/21/18 16:30 08/21/18 16:45 Temperature Pulse Rate 69 66 63 Respiratory Rate 18 17 16 Blood Pressure 123/59 L 110/55 L 112/53 L Pulse Oximetry 95 97 97 08/21/18 17:00 08/21/18 17:15 08/21/18 17:30 Temperature Pulse Rate 62 62 61 Respiratory Rate 16 16 15 Blood Pressure 109/55 L 113/55 L 113/56 L Pulse Oximetry 97 97 97 08/21/18 17:45 08/21/18 18:00 08/21/18 18:15 Temperature Pulse Rate 61 53 L 72 Respiratory Rate 15 15 34 H Blood Pressure 114/58 L 112/53 L 124/59 L Pulse Oximetry 97 96 99 08/21/18 18:30 08/21/18 18:45 08/21/18 19:54 Temperature Pulse Rate 68 75 74 Respiratory Rate 25 H 27 H 20 Blood Pressure 119/55 L 130/60 Pulse Oximetry 91 L 91 L 08/21/18 19:55 08/21/18 20:00 08/21/18 22:28 Temperature Pulse Rate 80 Respiratory Rate 16 18 Blood Pressure Pulse Oximetry 96 99 94 L 08/22/18 00:30 08/22/18 00:45 08/22/18 00:52 Temperature 99.6 F Pulse Rate 88 94 H Respiratory Rate 16 22 19 Blood Pressure 171/78 H 175/69 H Pulse Oximetry 96 95 97 08/22/18 00:54 08/22/18 01:00 08/22/18 01:15 Temperature Pulse Rate 82 81 83 Respiratory Rate 17 20 19 Blood Pressure 156/65 H 149/65 H Pulse Oximetry 97 95 08/22/18 01:30 08/22/18 01:45 08/22/18 02:00 Temperature Pulse Rate 83 93 H 92 H Respiratory Rate 19 22 16 Blood Pressure 152/58 H 173/78 H 175/79 H Pulse Oximetry 95 95 95 08/22/18 02:15 08/22/18 02:30 08/22/18 02:45 Temperature Pulse Rate 81 80 96 H Respiratory Rate 20 19 16 Blood Pressure 150/65 H 148/65 H 164/74 H Pulse Oximetry 96 97 96 08/22/18 03:00 08/22/18 03:15 08/22/18 03:30 Temperature Pulse Rate 91 H 91 H 78 Respiratory Rate 16 24 17 Blood Pressure 153/67 H 153/74 H 133/64 Pulse Oximetry 96 97 96 08/22/18 03:45 08/22/18 04:00 08/22/18 04:15 Temperature 99.2 F Pulse Rate 81 78 74 Respiratory Rate 19 18 17 Blood Pressure 136/75 138/63 130/58 L Pulse Oximetry 96 97 97 08/22/18 04:30 08/22/18 04:36 08/22/18 04:39 Temperature Pulse Rate 72 73 Respiratory Rate 17 17 12 Blood Pressure 130/61 Pulse Oximetry 97 96 08/22/18 04:45 08/22/18 05:00 08/22/18 05:15 Temperature Pulse Rate 77 77 78 Respiratory Rate 17 19 19 Blood Pressure 139/63 144/65 H 142/61 H Pulse Oximetry 97 97 95 08/22/18 05:30 08/22/18 05:45 08/22/18 06:00 Temperature Pulse Rate 76 76 70 Respiratory Rate 17 18 17 Blood Pressure 140/61 127/59 L 123/56 L Pulse Oximetry 96 95 95 08/22/18 06:15 08/22/18 06:29 08/22/18 06:30 Temperature Pulse Rate 70 70 70 Respiratory Rate 17 17 17 Blood Pressure 123/57 L 126/58 L Pulse Oximetry 95 95 95 08/22/18 06:45 08/22/18 07:00 08/22/18 07:15 Temperature Pulse Rate 70 71 71 Respiratory Rate 17 16 17 Blood Pressure 127/59 L 131/60 131/60 Pulse Oximetry 96 96 96 08/22/18 07:30 08/22/18 07:45 08/22/18 08:00 Temperature 98.8 F Pulse Rate 71 71 71 Respiratory Rate 17 17 17 Blood Pressure 132/61 136/63 137/62 Pulse Oximetry 96 96 96 08/22/18 08:15 08/22/18 08:22 08/22/18 08:30 Temperature Pulse Rate 71 74 82 Respiratory Rate 16 21 34 H Blood Pressure 133/61 144/64 H Pulse Oximetry 96 99 98 08/22/18 08:34 08/22/18 08:45 08/22/18 09:00 Temperature Pulse Rate 74 88 76 Respiratory Rate 37 H 19 Blood Pressure 134/61 Pulse Oximetry 91 L 93 L 08/22/18 09:15 08/22/18 09:30 Temperature Pulse Rate 84 83 Respiratory Rate 21 18 Blood Pressure 140/66 141/61 H Pulse Oximetry 97 97 Intake & Output 08/21/18 08/22/18 08/22/18 18:59 06:59 18:59 Intake Total 2366.2 / 2366.2 1689 / 1689 665 / 665 Output Total 3200 / 3200 1800 / 1800 Balance -833.8 / -833.8 -111 / -111 665 / 665 Weight 91.8 kg Intake: IV 6.2 / 2026.2 1200 / 1200 665 / 665 Cleviprex Inj 25 mg In 50 ml @ 250 / 250 300 / 300 50 / 50 1 MG/HR 2 mls/hr IV.CONT TITRATE PRN Rx#:[id number] Precedex Inj 1,000 MCG In NS 250 / 250 500 / 500 Inj 240 ML @ 0.2 MCG/KG/HR 5.18 mls/hr IV.CONT TITRATE PRN Rx# :[id number] Versed Inj 100 mg In 100 ml @ 2 100 / 100 MG/HR 2 mls/hr IV.CONT TITRATE PRN Rx#:[id number] Azactam Inj 2 GM In NS Inj 100 200 / 200 100 / 100 100 / 100 ML @ 200 mls/hr IV.SIG Q8H SATYA Rx#:[id number] Magnesium Sulfate Inj 4 GM In 100 / 100 NS Inj 92 ML @ 25 mls/hr IV.SIG ONCE ONE Rx#:[id number] MVI-12 Inj 10 ML Thiamine Inj 511.2 / 511.2 100 MG Folvite Inj 1 MG In D5W- 1/2 NS Inj 500 ML @ 127.8 mls/ hr IV.SIG DAILY SATYA Rx#: [id number] KCl 20 mEq Premix Inj 20 meq In 200 / 200 200 / 200 100 ml @ 50 mls/hr IV.SIG Q2H PRN Rx#:[id number] Vancomycin Inj 1,500 MG In NS 515 / 515 515 / 515 Inj 500 ML @ 250 mls/hr IV.SIG Q18H SATYA Rx#:[id number] Tube Feeding 40 / 40 89 / 89 Tube Irrigant 100 / 100 100 / 100 Water Bolus Amount 200 / 200 300 / 300 Output: Urine Amount (Catheter) 2800 / 2800 1800 / 1800 Indwelling Urethral Catheter 2800 / 2800 1800 / 1800 Gastric Drainage 400 / 400 Left Upper Quadrant 400 / 400 Other: Date of Last Bowel Movement 08/21/18 08/21/18 08/21/18 # Bowel Movements 2 0 - Constitutional no acute distress - Routine HEENT Exam Head: Present: normocephalic, atraumatic Eye: Present: EOMI, PERRL, normal accommodation, conjunctivae pink ENT: Present: mucous membranes moist - Routine Neck Exam Present: supple, full ROM, trachea midline - Routine Respiratory Exam Present: patient mechanically ventilated, CTA bilaterally - Routine Cardiovascular Exam Present: RRR, S1, S2 - Routine Abdominal Exam Present: soft, normoactive bowel sounds - Routine Extremities Exam Present: pulses intact - Routine Skin Exam Present: intact, dry - Routine Neurological Exam Present: altered mental status - Urinary Catheter Management Indwelling Urethral Catheter Cath placed during this visit: yes, but has since been removed by the nurse Reason for continuing: Hourly intake/output Insertion date: 08/17/18 Insertion time: 18:30 Removal date: 08/11/18 Removal time: 09:50 Condom Cath placed during this visit: no Reason for continuing: Not indwelling catheter Straight Cath placed during this visit: yes Reason for continuing: Acute urinary retention Insertion date: 08/17/18 Insertion time: 10:30 Assessment and Plan - Plan 1. VDRF 2. Aspiration pneumonia. 3. Encephalopathy. 4. Rhabdomyolysis with elevated CK. 5. C6 fracture. 6. Ethanol intoxication. 7. Anemia and thrombocytopenia. 8 Occlusive thrombus of the cephalic veins bilaterally. Plan Continue with vent support and maintain sats >92%. Bronchodilators, ICU vent bundle. SBT daily as miko. s/p perc trach at bedside 08/18 Pulm toilet,trach care CXR today: Interval improvement in bibasilar opacity with mild residual left greater than right Monitor neuro status closely, daily sedation vacation. Neuro is following, Continue Thiamine. S/p LP, HSV PCR negative. Daily sedation vacation as miko. Abx- On Aztreonam, vanco , Monitor for signs of infection( fever and WBC). BC 08/22 bottles: Staph Epi likely contaminant, follow up on BC 08/18: NGTD 08/11 sputum culture: Normal resp sherman Monitor renal function and electrolyte replacement per protocol. on Lasix 40mg BID 08/12 Doppler US LE negative for DVT 08/14 Doppler US UE: Occlusive and non occlusive thrombus of the cephalic veins bilaterally Echocardiogram showed EF of 50% to 55%. GI and DVT prophylaxis. On Pepcid/Heparin SQ respectively.
[2018-08-22] MEDS: Labetalol HCl Inj 100 MG/20 ML Vial IV.PUSH PRN (12:20)
[2018-08-22] MEDS: fentaNYL 10 mcg/mL Premix Drip 2,500 MCG/250 ML BAG IV.SIG PRN (12:52)
--- NOTE | 2018-08-22 14:27 | P.PNGI ---
Subjective Interval history: Trach to T piece Versed, fentanyl and Precedex for sedation Post PEG tube placement <Julienne Michael - Last Filed: 08/22/18 14:19> Physical Exam Vital signs: Vital Signs 08/21/18 14:30 08/21/18 14:45 08/21/18 15:00 Temperature Pulse Rate 76 70 68 Respiratory Rate 36 H 17 17 Blood Pressure 129/58 L 121/58 L 126/56 L Pulse Oximetry 95 95 96 08/21/18 15:15 08/21/18 15:30 08/21/18 15:35 Temperature Pulse Rate 69 72 75 Respiratory Rate 18 27 H 17 Blood Pressure 126/57 L 131/60 Pulse Oximetry 95 95 94 L 08/21/18 15:45 08/21/18 16:00 08/21/18 16:15 Temperature 98.8 F Pulse Rate 71 60 69 Respiratory Rate 14 27 H 18 Blood Pressure 133/61 134/60 123/59 L Pulse Oximetry 98 97 95 08/21/18 16:30 08/21/18 16:45 08/21/18 17:00 Temperature Pulse Rate 66 63 62 Respiratory Rate 17 16 16 Blood Pressure 110/55 L 112/53 L 109/55 L Pulse Oximetry 97 97 97 08/21/18 17:15 08/21/18 17:30 08/21/18 17:45 Temperature Pulse Rate 62 61 61 Respiratory Rate 16 15 15 Blood Pressure 113/55 L 113/56 L 114/58 L Pulse Oximetry 97 97 97 08/21/18 18:00 08/21/18 18:15 08/21/18 18:30 Temperature Pulse Rate 53 L 72 68 Respiratory Rate 15 34 H 25 H Blood Pressure 112/53 L 124/59 L 119/55 L Pulse Oximetry 96 99 91 L 08/21/18 18:45 08/21/18 19:54 08/21/18 19:55 Temperature Pulse Rate 75 74 Respiratory Rate 27 H 20 16 Blood Pressure 130/60 Pulse Oximetry 91 L 96 08/21/18 20:00 08/21/18 22:28 08/22/18 00:30 Temperature 99.6 F Pulse Rate 80 88 Respiratory Rate 18 16 Blood Pressure 171/78 H Pulse Oximetry 99 94 L 96 08/22/18 00:45 08/22/18 00:52 01/04/19 00:54 Temperature Pulse Rate 94 H 82 Respiratory Rate 22 19 17 Blood Pressure 175/69 H Pulse Oximetry 95 97 08/22/18 01:00 08/22/18 01:15 08/22/18 01:30 Temperature Pulse Rate 81 83 83 Respiratory Rate 20 19 19 Blood Pressure 156/65 H 149/65 H 152/58 H Pulse Oximetry 97 95 95 08/22/18 01:45 08/22/18 02:00 08/22/18 02:15 Temperature Pulse Rate 93 H 92 H 81 Respiratory Rate 22 16 20 Blood Pressure 173/78 H 175/79 H 150/65 H Pulse Oximetry 95 95 96 08/22/18 02:30 08/22/18 02:45 08/22/18 03:00 Temperature Pulse Rate 80 96 H 91 H Respiratory Rate 19 16 16 Blood Pressure 148/65 H 164/74 H 153/67 H Pulse Oximetry 97 96 96 08/22/18 03:15 08/22/18 03:30 08/22/18 03:45 Temperature Pulse Rate 91 H 78 81 Respiratory Rate 24 17 19 Blood Pressure 153/74 H 133/64 136/75 Pulse Oximetry 97 96 96 08/22/18 04:00 08/22/18 04:15 08/22/18 04:30 Temperature 99.2 F Pulse Rate 78 74 72 Respiratory Rate 18 17 17 Blood Pressure 138/63 130/58 L 130/61 Pulse Oximetry 97 97 97 08/22/18 04:36 08/22/18 04:39 08/22/18 04:45 Temperature Pulse Rate 73 77 Respiratory Rate 17 12 17 Blood Pressure 139/63 Pulse Oximetry 96 97 08/22/18 05:00 08/22/18 05:15 08/22/18 05:30 Temperature Pulse Rate 77 78 76 Respiratory Rate 19 19 17 Blood Pressure 144/65 H 142/61 H 140/61 Pulse Oximetry 97 95 96 08/22/18 05:45 08/22/18 06:00 08/22/18 06:15 Temperature Pulse Rate 76 70 70 Respiratory Rate 18 17 17 Blood Pressure 127/59 L 123/56 L 123/57 L Pulse Oximetry 95 95 95 08/22/18 06:29 08/22/18 06:30 08/22/18 06:45 Temperature Pulse Rate 70 70 70 Respiratory Rate 17 17 17 Blood Pressure 126/58 L 127/59 L Pulse Oximetry 95 95 96 08/22/18 07:00 08/22/18 07:15 08/22/18 07:30 Temperature Pulse Rate 71 71 71 Respiratory Rate 16 17 17 Blood Pressure 131/60 131/60 132/61 Pulse Oximetry 96 96 96 08/22/18 07:45 08/22/18 08:00 08/22/18 08:15 Temperature 98.8 F Pulse Rate 71 71 71 Respiratory Rate 17 17 16 Blood Pressure 136/63 137/62 133/61 Pulse Oximetry 96 96 96 08/22/18 08:22 08/22/18 08:30 08/22/18 08:34 Temperature Pulse Rate 74 82 74 Respiratory Rate 21 34 H Blood Pressure 144/64 H Pulse Oximetry 99 98 08/22/18 08:45 08/22/18 09:00 08/22/18 09:15 Temperature Pulse Rate 88 76 84 Respiratory Rate 37 H 19 21 Blood Pressure 134/61 140/66 Pulse Oximetry 91 L 93 L 97 08/22/18 09:30 08/22/18 09:45 08/22/18 10:00 Temperature Pulse Rate 83 85 85 Respiratory Rate 18 24 40 H Blood Pressure 141/61 H 146/65 H 138/65 Pulse Oximetry 97 95 95 08/22/18 10:06 08/22/18 10:15 08/22/18 10:30 Temperature Pulse Rate 79 73 93 H Respiratory Rate 15 12 35 H Blood Pressure 128/56 L 129/61 151/70 H Pulse Oximetry 95 95 94 L 08/22/18 10:45 08/22/18 11:00 08/22/18 11:15 Temperature Pulse Rate 78 74 73 Respiratory Rate 20 19 21 Blood Pressure 136/60 140/62 137/55 L Pulse Oximetry 95 95 94 L 08/22/18 11:30 08/22/18 11:35 08/22/18 11:45 Temperature Pulse Rate 72 72 72 Respiratory Rate 24 24 24 Blood Pressure 139/65 139/62 Pulse Oximetry 94 L 94 L 93 L 08/22/18 12:00 08/22/18 12:15 08/22/18 12:30 Temperature 99.8 F H Pulse Rate 75 83 80 Respiratory Rate 14 32 H 31 H Blood Pressure 148/67 H 152/71 H 147/70 H Pulse Oximetry 95 92 L 93 L 08/22/18 12:45 08/22/18 13:00 08/22/18 13:15 Temperature Pulse Rate 79 76 75 Respiratory Rate 23 21 22 Blood Pressure 146/69 H 133/60 134/62 Pulse Oximetry 93 L 93 L 94 L 08/22/18 13:30 08/22/18 13:45 08/22/18 14:00 Temperature Pulse Rate 74 73 72 Respiratory Rate 21 20 19 Blood Pressure 129/57 L 131/60 134/61 Pulse Oximetry 94 L 95 95 Intake & Output 08/21/18 08/22/18 08/22/18 18:59 06:59 18:59 Intake Total 2366.2 / 2366.2 1689 / 1689 1676.2 / 1676.2 Output Total 3200 / 3200 1800 / 1800 1400 / 1400 Balance -833.8 / -833.8 -111 / -111 276.2 / 276.2 Weight 91.8 kg Intake: IV 2026.2 / 2026.2 1200 / 1200 1676.2 / 1676.2 Cleviprex Inj 25 mg In 50 ml @ 250 / 250 300 / 300 100 / 100 1 MG/HR 2 mls/hr IV.CONT TITRATE PRN Rx#:[id number] Precedex Inj 1,000 MCG In NS 250 / 250 500 / 500 Inj 240 ML @ 0.2 MCG/KG/HR 5.18 mls/hr IV.CONT TITRATE PRN Rx# :[id number] Versed Inj 100 mg In 100 ml @ 2 100 / 100 MG/HR 2 mls/hr IV.CONT TITRATE PRN Rx#:[id number] Azactam Inj 2 GM In NS Inj 100 200 / 200 100 / 100 100 / 100 ML @ 200 mls/hr IV.SIG Q8H SATYA Rx#:[id number] Magnesium Sulfate Inj 4 GM In 100 / 100 NS Inj 92 ML @ 25 mls/hr IV.SIG ONCE ONE Rx#:[id number] MVI-12 Inj 10 ML Thiamine Inj 511.2 / 511.2 511.2 / 511.2 100 MG Folvite Inj 1 MG In D5W- 1/2 NS Inj 500 ML @ 127.8 mls/ hr IV.SIG DAILY SATYA Rx#: [id number] KCl 20 mEq Premix Inj 20 meq In 200 / 200 200 / 200 200 / 200 100 ml @ 50 mls/hr IV.SIG Q2H PRN Rx#:[id number] Vancomycin Inj 1,500 MG In NS 515 / 515 515 / 515 Inj 500 ML @ 250 mls/hr IV.SIG Q18H SATYA Rx#:[id number] fentaNYL 10 mcg/mL Premix Drip 250 / 250 2,500 mcg In 250 ml @ 50 MCG/HR 5 mls/hr IV.SIG TITRATE PRN Rx #:[id number] Tube Feeding 40 / 40 89 / 89 Tube Irrigant 100 / 100 100 / 100 Water Bolus Amount 200 / 200 300 / 300 Output: Urine Amount (Catheter) 2800 / 2800 1800 / 1800 1400 / 1400 Indwelling Urethral Catheter 2800 / 2800 1800 / 1800 1400 / 1400 Gastric Drainage 400 / 400 Left Upper Quadrant 400 / 400 Other: Date of Last Bowel Movement 08/21/18 08/21/18 08/21/18 # Bowel Movements 2 0 - Constitutional chronically ill appearing - Routine HEENT Exam Head: Present: normocephalic Comments: Tracheostomy - Routine Respiratory Exam Present: CTA bilaterally. Absent: patient mechanically ventilated - Routine Cardiovascular Exam Present: RRR, S1, S2 - Routine Abdominal Exam Present: soft, normoactive bowel sounds, ostomy. Absent: distended, firm Comments: PEG tube in place Tube feedings with no reported abnormal residuals Dressing clean dry and intact No redness or signs of infection present - Routine Extremities Exam Present: pulses intact. Absent: edema - Routine Skin Exam Present: dry, warm - Urinary Catheter Management Indwelling Urethral Catheter Cath placed during this visit: yes, but has since been removed by the nurse Reason for continuing: Hourly intake/output Insertion date: 08/17/18 Insertion time: 18:30 Removal date: 08/11/18 Removal time: 09:50 Condom Cath placed during this visit: no Reason for continuing: Not indwelling catheter Straight Cath placed during this visit: yes Reason for continuing: Acute urinary retention Insertion date: 08/17/18 Insertion time: 10:30 <Julienne Michael - Last Filed: 08/22/18 14:19> Vital signs: Vital Signs 08/24/18 12:00 08/24/18 12:19 08/24/18 12:30 Temperature 99.5 F Pulse Rate 74 Respiratory Rate 36 H 12 Blood Pressure 137/66 Pulse Oximetry 97 97 96 08/24/18 13:00 08/24/18 14:00 08/24/18 15:00 Temperature Pulse Rate 79 88 77 Respiratory Rate 30 H 26 H 36 H Blood Pressure 172/88 H 165/78 H 98/51 L Pulse Oximetry 98 98 97 08/24/18 16:00 08/24/18 17:00 08/24/18 17:39 Temperature 99.5 F Pulse Rate 70 77 75 Respiratory Rate 22 26 H 14 Blood Pressure 121/58 L 122/60 Pulse Oximetry 98 97 08/24/18 18:00 08/24/18 18:15 08/24/18 18:30 Temperature Pulse Rate 80 76 72 Respiratory Rate 26 H Blood Pressure 155/83 H Pulse Oximetry 98 98 96 08/24/18 18:45 08/24/18 19:00 08/24/18 19:15 Temperature Pulse Rate 70 88 72 Respiratory Rate 14 107 H Blood Pressure 157/74 H Pulse Oximetry 96 97 96 08/24/18 19:30 08/24/18 19:45 08/24/18 20:00 Temperature Pulse Rate 70 68 67 Respiratory Rate 118 H Blood Pressure 117/59 L Pulse Oximetry 97 97 93 L 08/24/18 20:15 08/24/18 20:30 08/24/18 20:33 Temperature 97.7 F Pulse Rate 67 67 Respiratory Rate 21 25 H Blood Pressure Pulse Oximetry 97 98 98 08/24/18 20:39 08/24/18 20:45 08/24/18 21:00 Temperature Pulse Rate 72 84 78 Respiratory Rate 25 H 22 23 Blood Pressure 180/97 H Pulse Oximetry 96 96 98 08/24/18 21:15 08/24/18 21:30 08/24/18 21:45 Temperature Pulse Rate 75 69 66 Respiratory Rate 21 15 17 Blood Pressure Pulse Oximetry 98 95 95 08/24/18 22:00 08/24/18 22:15 08/24/18 22:30 Temperature Pulse Rate 65 65 64 Respiratory Rate 17 Blood Pressure 106/55 L Pulse Oximetry 96 96 96 08/24/18 22:45 08/24/18 23:00 08/24/18 23:15 Temperature Pulse Rate 64 62 66 Respiratory Rate Blood Pressure 104/56 L Pulse Oximetry 96 96 94 L 08/24/18 23:30 08/24/18 23:45 08/25/18 00:00 Temperature Pulse Rate 63 62 62 Respiratory Rate Blood Pressure 109/57 L Pulse Oximetry 92 L 92 L 93 L 08/25/18 00:13 08/25/18 00:15 08/25/18 00:30 Temperature 98.6 F Pulse Rate 63 64 77 Respiratory Rate 13 15 17 Blood Pressure Pulse Oximetry 95 97 98 08/25/18 00:45 08/25/18 01:00 08/25/18 01:15 Temperature Pulse Rate 85 70 68 Respiratory Rate 17 15 11 L Blood Pressure 150/76 H Pulse Oximetry 93 L 95 94 L 08/25/18 01:30 08/25/18 01:45 08/25/18 02:00 Temperature Pulse Rate 67 66 65 Respiratory Rate Blood Pressure 121/57 L Pulse Oximetry 95 96 97 08/25/18 02:15 08/25/18 02:30 08/25/18 02:45 Temperature Pulse Rate 64 64 64 Respiratory Rate Blood Pressure Pulse Oximetry 97 97 97 08/25/18 03:00 08/25/18 03:15 08/25/18 03:21 Temperature Pulse Rate 63 62 66 Respiratory Rate 14 Blood Pressure 149/79 H Pulse Oximetry 98 97 08/25/18 03:30 08/25/18 03:45 08/25/18 03:55 Temperature Pulse Rate 63 62 Respiratory Rate 10 L 11 L Blood Pressure Pulse Oximetry 97 97 97 08/25/18 04:00 08/25/18 04:15 08/25/18 04:30 Temperature 97.6 F Pulse Rate 62 64 63 Respiratory Rate 9 L Blood Pressure 125/66 Pulse Oximetry 97 98 98 08/25/18 04:45 08/25/18 05:00 08/25/18 05:15 Temperature Pulse Rate 61 61 61 Respiratory Rate 9 L Blood Pressure 123/64 Pulse Oximetry 97 97 97 08/25/18 05:30 08/25/18 05:45 08/25/18 06:00 Temperature Pulse Rate 61 60 60 Respiratory Rate 9 L Blood Pressure 100/53 L Pulse Oximetry 97 100 96 08/25/18 06:15 08/25/18 06:30 08/25/18 08:26 Temperature Pulse Rate 59 L 59 L 61 Respiratory Rate 129 H 129 H 17 Blood Pressure Pulse Oximetry 96 97 100 Intake & Output 08/24/18 08/25/18 08/25/18 18:59 06:59 18:59 Intake Total 2116.2 / 2116.2 274 / 274 700 / 700 Output Total 1900 / 1900 2475 / 2475 Balance 216.2 / 216.2 -2201 / -2201 700 / 700 Weight 87.4 kg Intake: IV 1111.2 / 1111.2 250 / 250 700 / 700 Precedex Inj 1,000 MCG In NS 250 / 250 250 / 250 250 / 250 Inj 240 ML @ 0.2 MCG/KG/HR 5.18 mls/hr IV.CONT TITRATE PRN Rx# :[id number] Versed Inj 100 mg In 100 ml @ 2 100 / 100 MG/HR 2 mls/hr IV.CONT TITRATE PRN Rx#:[id number] MVI-12 Inj 10 ML Thiamine Inj 511.2 / 511.2 100 MG Folvite Inj 1 MG In D5W- 1/2 NS Inj 500 ML @ 127.8 mls/ hr IV.SIG DAILY SATYA Rx#: [id number] KCl 20 mEq Premix Inj 20 meq In 200 / 200 100 ml @ 50 mls/hr IV.SIG Q2H PRN Rx#:[id number] fentaNYL 10 mcg/mL Premix Drip 250 / 250 250 / 250 2,500 mcg In 250 ml @ 50 MCG/HR 5 mls/hr IV.SIG TITRATE PRN Rx #:[id number] Tube Feeding 505 / 505 24 / 24 Tube Irrigant 300 / 300 Water Bolus Amount 200 / 200 Output: Urine Amount (Catheter) 1900 / 1900 2475 / 2475 Indwelling Urethral Catheter 1899 / 190 2475 / 2475 Other: Date of Last Bowel Movement 08/24/18 08/25/18 # Bowel Movements 2 - Urinary Catheter Management Indwelling Urethral Catheter Cath placed during this visit: no Condom Cath placed during this visit: no Straight Cath placed during this visit: no <Jaxon Jensen - Last Filed: 08/25/18 11:15> Results - Labs CBC & Chem 7: 08/22/18 04:05 08/22/18 04:05 Laboratory Results - last 24 hr 08/15/18 08/22/18 08/22/18 11:39 04:05 04:05 WBC 7.6 RBC 3.23 L Hgb 10.6 L Hct 29.6 L MCV 91.6 MCH 32.8 MCHC 35.8 RDW 14.0 Plt Count 510 H MPV 7.9 Neut % (Auto) 79.6 H Lymph % (Auto) 11.8 [place] % (Auto) 5.6 Eos % (Auto) 2.2 Baso % (Auto) 0.8 Neut # (Auto) 6.1 Lymph # (Auto) 0.9 L [place] # (Auto) 0.4 Eos # (Auto) 0.2 Baso # (Auto) 0.1 WBC Differential . Differential Comment Auto diff final Sodium 140 Potassium 3.1 L Chloride 105 Carbon Dioxide 27.3 Anion Gap 8 BUN 14 Creatinine 0.91 Estimated GFR 86 L Random Glucose 88 Calcium 8.7 Phosphorus 3.9 D Magnesium 2.0 Total Bilirubin 0.5 AST 29 ALT 32 Alkaline Phosphatase 118 H Total Protein 6.4 Albumin 2.5 L CSF Albumin 19.6 CSF IgG 2.2 Serum IgG 336 L Serum Albumin 2.0 L CSF IgG Index 0.67 H CSF IgG Synthesis Rate +2.6 Valproic Acid 13 L Microbiology 08/18/18 11:45 Blood - Peripheral Aerobic Blood Culture - Preliminary No growth in 4 days 08/18/18 11:45 Blood - Peripheral Anaerobic Blood Culture - Preliminary No growth in 4 days 08/18/18 11:52 Blood - Peripheral Aerobic Blood Culture - Preliminary No growth in 4 days 08/18/18 11:52 Blood - Peripheral Anaerobic Blood Culture - Preliminary No growth in 4 days 08/17/18 03:20 Blood - Peripheral Aerobic Blood Culture - Final No growth in 5 days 08/17/18 03:20 Blood - Peripheral Anaerobic Blood Culture - Final No growth in 5 days 08/17/18 01:15 Blood - Peripheral Aerobic Blood Culture - Final Staphylococcus epidermidis 08/17/18 01:15 Blood - Peripheral Anaerobic Blood Culture - Final No growth in 5 days - Imaging Impressions Abdomen X-Ray 08/22/18 06:00 CONCLUSION: No significant change. Chest X-Ray 08/22/18 06:00 CONCLUSION: Interval improvement in bibasilar opacity with mild residual left greater than right. There is a probable left effusion. Abdomen X-Ray 08/22/18 08:14 CONCLUSION: Interval improvement. Gastrostomy tube in good position. I see no significant distention. <Julienne Michael - Last Filed: 08/22/18 14:19> - Labs CBC & Chem 7: 08/24/18 03:41 08/25/18 04:31 Laboratory Results - last 24 hr 08/24/18 08/25/18 11:34 04:31 Sodium 143 141 Potassium 3.2 L 3.1 L Chloride 110 H 105 Carbon Dioxide 29.5 29.9 Anion Gap 4 L 6 BUN 14 14 Creatinine 1.00 0.82 Estimated GFR 77 L Greater than 89 Random Glucose 104 102 Calcium 8.9 9.1 Phosphorus 4.4 Magnesium 2.0 Total Bilirubin 0.2 AST 17 ALT 22 Alkaline Phosphatase 116 Total Protein 6.4 Albumin 2.2 L <CamilaDavidjose alfredo Rivera - Last Filed: 08/25/18 11:15> Assessment and Plan (1) Encounter for PEG (percutaneous endoscopic gastrostomy) Status: Acute Code(s): Z43.1 - Encounter for attention to gastrostomy - Plan Assessment Dysphagiapatient brought to the hospital after being found down in the garage, undergoing work up for etiology. MRI cervical spine consistent for hairline C6 fracture with no displacement. Patient has had witnessed jerking movements, EEG negative for any seizure activity. Unfortunately, he has been unable to be weaned from the vent. He underwent tracheostomy yesterday. Our service has been consulted for PEG tube placement. EGD with PEG (08/20/18) class B esophagitis, stomach appeared normal, duodenal mucosa normal in the entire examined duodenum, and PEG placed successfully. Patient does have noted 1 cm incision above where PEG tube is currently placed, consistent with unsuccessful first attempt. This incision is well approximated with no active drainage. (08/21/18) Abdominal distention status post PEG placement yesterdaydiscussed with paper cone machine operator who states that patient's abdomen was distended this morning. His PEG tube was placed to gravity, he has had approximately 500 cc of green gastric fluid drained. KUB done this morning shows nonspecific marginally dilated air-filled colon, differentials include mild colonic ileus. According to nursing staff patient has been having stool, states that it is loose. Abdomen is currently soft and bowel sounds are active. Discussed with nursing staff, will trial trickle tube feedings and see how patient tolerates. Can consider Reglan if needed, will hold off on this time given patient is having good stool output. Follow-up KUB in a.m. 08/22/2018 Post EGD with PEG placement Abdomen soft with positive bowel sounds present; no noted distention Tube feeding infusing without reported abnormal residuals 08/22/2018 abdominal KUB: Gastrostomy tube in good position. No significant distention of either large or small bowel. Minimal gas is seen in the transverse and descending colon. There is no definite free air Plan -Tube feeding as per dietary recommendation-titrate for tolerance -Supportive care -PEG tube site dressing daily and as needed -Bowel regimen -Free water flushes and residual checks as ordered -GI will sign off at this time, please notify for any further assistance This patient has been seen and examined by myself and Dr. Jensen and this note is written on his behalf - Attending Attestation Dr. Jensen <Julienne Michael - Last Filed: 08/22/18 14:19> (1) Encounter for PEG (percutaneous endoscopic gastrostomy) Status: Acute Code(s): Z43.1 - Encounter for attention to gastrostomy - Attending Attestation Plan as above. <Jaxon Jensen - Last Filed: 08/25/18 11:15>
[2018-08-22] MEDS: Midazolam 100 MG/100 ML Inj 100 MG/100 ML BAG IV.CONT PRN (17:28)
[2018-08-22] MEDS: Potassium Chloride 25 MEQ Effervescent Tablet PO PRN (21:44)
[2018-08-23] MEDS: Vancomycin Inj 1,500 MG in Sodium Chlor 0.9% Inj 500 ML IV.SIG SCH (00:53)
[2018-08-23] MEDS: Oral Hygiene Kit OROPHARYNG SCH ×4 (00:54→15:21)
[2018-08-23] MEDS: Artificial Tears Opth Drops 15 ML Bottle EACH EYE SCH ×3 (00:55→17:28)
[2018-08-23] MEDS: Dexmedetomidine Inj 1,000 MCG in Sodium Chlor 0.9% Inj 240 ML IV.CONT PRN ×3 (01:47→23:19)
[2018-08-23] MEDS: Aztreonam Inj 2 GM in Sodium Chloride 0.9% Inj 100 ML IV.SIG SCH (01:48)
[2018-08-23] MEDS: Heparin - SQ 10,000 UNITS/ML Vial SQ SCH ×3 (03:18→20:14)
[2018-08-23 05:33] LABS: Baso # (Auto) 0.1 th/mm3 (0.0-0.2); Baso % (Auto) 1.2 % (0.0-2.0); Eos # (Auto) 0.3 th/mm3 (0.0-0.4); Eos % (Auto) 5.9 % (0.0-4.0); Hematocrit 29.5 % (39.0-51.0); Hemoglobin 10.2 gm/dL (13.0-17.0); Lymph # (Auto) 0.7 th/mm3 (1.0-4.8); Lymph % (Auto) 13.3 % (9.0-44.0); Mean Corpuscular HGB Conc 34.7 % (32.0-36.0); Mean Corpuscular Hemoglobin 32.5 pg (27.0-34.0); Mean Corpuscular Volume 93.7 fL (80.0-100.0); Mean Platelet Volume 7.8 fL (7.0-11.0); Mono # (Auto) 0.4 th/mm3 (0.0-0.9); Mono % (Auto) 8.3 % (0.0-8.0); Neut # (Auto) 3.7 th/mm3 (1.8-7.7); Neut % (Auto) 71.3 % (16.0-70.0); Platelet Count 460 th/mm3 (150-450); Red Blood Count 3.15 mil/mm3 (4.50-5.90); Red Cell Distribution Width 14.2 % (11.6-17.2); White Blood Count 5.2 th/mm3 (4.0-11.0)
[2018-08-23 05:59] LABS: Alanine Aminotransferase 23 U/L (12-78); Albumin 2.1 g/dL (3.4-5.0); Anion Gap 8 meq/L (5-15); Aspartate Aminotransferase 18 U/L (15-37); Blood Urea Nitrogen 13 mg/dL (7-18); Calcium 8.4 mg/dL (8.5-10.1); Carbon Dioxide 26.9 meq/L (21.0-32.0); Chloride 109 meq/L (98-107); Glomerular Filtration Rate Greater Than 89 mL/min (>89); Glucose,Random 99 mg/dL (74-106); Phosphorus 4.1 mg/dL (2.5-4.9); Potassium 3.6 meq/L (3.5-5.1); Sodium 144 meq/L (136-145)
[2018-08-23 06:01] LABS: Alkaline Phosphatase 108 U/L (45-117)
--- NOTE | 2018-08-23 06:15 | XR ---
EXAM DATE: 08/23/2018 5:36 AM EST AGE/SEX: 58 years / Male INDICATIONS: Respiratory failure. CLINICAL DATA: This is the patient's subsequent encounter. Patient reports that signs and symptoms h ave been present for 3 weeks and indicates a pain score of Nonresponsive. MEDICAL/SURGICAL HISTORY: Hypertension. None. COMPARISON: [facility] – [place], CHEST 1V SINGLE AP, 08/22/2018. . FINDINGS: A single AP semierect portable view of the chest was obtained and again demonstrates the tracheostomy tube in place. Hazy perihilar and bibasilar opacities remain with no focal solid lesion. Left costop hrenic angle appears blunted. The bony thorax remains intact in appearance. CONCLUSION: No significant change. Electronically signed by: Abel Jerez MD Board Certified Radiologist 08/23/2018 6:13 AM EST
[2018-08-23] MEDS: fentaNYL 10 mcg/mL Premix Drip 2,500 MCG/250 ML BAG IV.SIG PRN ×2 (06:23→23:03)
[2018-08-23] MEDS ORDERED: Potassium Chloride 25 MEQ Effervescent Tablet PO ONE (07:46)
[2018-08-23] MEDS: Famotidine PF Inj 20 MG/2 ML Vial IV.PUSH SCH ×2 (08:01→20:13)
[2018-08-23] MEDS: Aspirin 300 MG Supp RECTAL SCH (08:01)
[2018-08-23] MEDS: Folic Acid 1 MG Tablet PO SCH (08:01)
[2018-08-23] MEDS: chlordiazePOXIDE 25 MG Capsule PO SCH ×2 (08:01→20:13)
[2018-08-23] MEDS: amLODIPine 5 MG Tablet PO SCH (08:01)
[2018-08-23] MEDS: Carvedilol 12.5 MG Tablet PO SCH ×2 (08:02→20:14)
[2018-08-23] MEDS: Docusate Sodium Liq 100 MG/10 ML UDC G-TUBE SCH ×2 (08:02→20:13)
[2018-08-23] MEDS: Chlorhexidine 0.12% Oral Kit 15 ML UDC OROPHARYNG SCH ×2 (08:02→20:15)
[2018-08-23] MEDS: Polyethylene Glycol 3350 17 GM Packet PO SCH (08:03)
[2018-08-23] MEDS: Lisinopril 10 MG Tablet PO SCH ×2 (08:10→20:17)
[2018-08-23] MEDS: QUEtiapine 25 MG Tablet PO SCH ×3 (08:10→17:48)
[2018-08-23] MEDS: Multivitamin Inj 10 ML, Thiamine Inj 100 MG, Folic Acid Inj 1 MG in Dextrose 5%/NaCl 0.... IV.SIG SCH (08:44)
--- NOTE | 2018-08-23 08:57 | P.PNCC ---
Subjective Subjective Remarks/Hospital Course: 08/09: 58-year-old male who was found down in his friend's garage this morning. He has a history of alcohol abuse. He recently sold his house and was staying at a friend's home. Reportedly he was due to fly later today. Patient was brought to the ER by EMS and was noted to have involuntary movements with jerking movements involving upper and lower extremities as well as his head. He received Ativan 3 mg IV and was loaded with Keppra. Initially stroke alert was called. Head CT was negative for any bleed however there was question of C6 fracture. Neurology and neurosurgery were consulted. Patient was loaded with IV Cerebyx and Vimpat by neurology. He had a [place] J collar placed after placing hard cervical collar by neurosurgery. When I evaluated the patient in the ER he was still having involuntary movements which appeared to be episodic with occasional twitchings on his face and nystagmus. This did not appear to be generalized tonic-clonic convulsions however appeared more like an extrapyramidal reaction. I ordered a stat EEG. Patient moving around too much to obtain MRI at this time. His urine tox screen was negative. He was positive for alcohol. Patient nonverbal. His involuntary movements get exaggerated on stimulation. He was reportedly completely normal yesterday. 08/10: Patient had an episode of emesis last night followed by labored breathing. He continued to have involuntary movements. He was intubated and placed on mechanical ventilation. Currently sedated with propofol, orally intubated on mechanical ventilation. Awaiting MRI brain and C-spine. EEG done yesterday did not show any seizure activity. 08/11: Sedated, orally intubated on mechanical ventilation. MRI brain unremarkable. MRI C-spine with hairline C6 fracture with no displacement. 08/12: Remains sedated, orally intubated on mechanical ventilation. Reintubated yesterday for significant hypoxia and respiratory distress with O2 sats dropping to the 70s despite nonrebreather facemask. CT pulmonary angiogram was negative for PE and showed bilateral infiltrates at the bases. 08/13: Remains sedated, orally intubated on mechanical ventilation. On propofol /fentanyl GTT. Starting tube feeds 08/14: T-max 99.4. Currently 98.3. Scheduled for IR for lumbar puncture today. Patient acute injury. Patient is on vancomycin, acyclovir and did receive IV contrast recently. Renal ultrasound ordered. Urine eosinophils, sodium and creatinine ordered. Arousable and does follow commands on the ventilator. Breakthrough agitation/involuntary systemic movements noted 08/15: Plan for lumbar puncture today. Will likely try sedation vacation overnight. See 4 mg of midazolam overnight due to agitation. Appears comfortable. Intermittently follows commands. 08/16: Lumbar puncture from yesterday accomplished. We will try sedation vacation again today and tried on dexmedetomidine drip. Rash is much improved. Discontinued lacosamide possible source of rash. Remains leukopenic and elevated eosinophils. 08/17: Low-grade fevers overnight. Blood cultures x2, sputum performed. Will start on piperacillin/tazobactam vancomycin. Extubated today. Tolerated about 2 hours but became hypoxic on 100% nonrebreather and tachypneic. Intubated with axial traction. Will need tracheostomy has failed extubation x2 08/18: T-max 100.1. Failed extubation requiring reintubation. Tracheostomy planned for 10 AM today. 08/19: Afebrile overnight. Chest x-ray following tracheostomy demonstrates tube in good position safely above the tory. Basilar infiltrates persist but clearing. On spontaneous breathing trial earlier today he had apneic episodes. With no sedation he becomes extremely agitated however. 08/20: Percutaneous gastrostomy tube plan for today. Very agitated. Remains on clevidipine drip. 08/21: Status post percutaneous gastrostomy tube 08/20. Some distention. Currently drainage. Will check KUB. Very agitated requiring midazolam drip. We will consult neuropsychology for assistance. 08/22: Low-grade fevers overnight. Remains on multiple sedatives. Adjusted increased valproic acid and quetiapine yesterday per neuropsychiatrist rec. On trickle feeds. Subjective 08/23: T-max 99.8. Currently afebrile. We will discontinue antibiotics today. Did not require held overnight. We will advance tube feeds to goal. Positive BM. Interactive weekly. Objective Vital Signs / I&O: Vital Signs 08/22/18 09:00 08/22/18 09:15 08/22/18 09:30 Temperature Pulse Rate 76 84 83 Respiratory Rate 19 21 18 Blood Pressure 134/61 140/66 141/61 H Pulse Oximetry 93 L 97 97 08/22/18 09:45 08/22/18 10:00 08/22/18 10:06 Temperature Pulse Rate 85 85 79 Respiratory Rate 24 40 H 15 Blood Pressure 146/65 H 138/65 128/56 L Pulse Oximetry 95 95 95 08/22/18 10:15 08/22/18 10:30 08/22/18 10:45 Temperature Pulse Rate 73 93 H 78 Respiratory Rate 12 35 H 20 Blood Pressure 129/61 151/70 H 136/60 Pulse Oximetry 95 94 L 95 08/22/18 11:00 08/22/18 11:15 08/22/18 11:30 Temperature Pulse Rate 74 73 72 Respiratory Rate 19 21 24 Blood Pressure 140/62 137/55 L 139/65 Pulse Oximetry 95 94 L 94 L 08/22/18 11:35 08/22/18 11:45 08/22/18 12:00 Temperature 99.8 F H Pulse Rate 72 72 75 Respiratory Rate 24 24 14 Blood Pressure 139/62 148/67 H Pulse Oximetry 94 L 93 L 95 08/22/18 12:15 08/22/18 12:30 08/22/18 12:45 Temperature Pulse Rate 83 80 79 Respiratory Rate 32 H 31 H 23 Blood Pressure 152/71 H 147/70 H 146/69 H Pulse Oximetry 92 L 93 L 93 L 08/22/18 13:00 08/22/18 13:15 08/22/18 13:30 Temperature Pulse Rate 76 75 74 Respiratory Rate 21 22 21 Blood Pressure 133/60 134/62 129/57 L Pulse Oximetry 93 L 94 L 94 L 08/22/18 13:45 08/22/18 14:00 08/22/18 14:15 Temperature Pulse Rate 73 72 70 Respiratory Rate 20 19 20 Blood Pressure 131/60 134/61 131/58 L Pulse Oximetry 95 95 96 08/22/18 14:30 08/22/18 14:45 08/22/18 15:00 Temperature Pulse Rate 69 69 68 Respiratory Rate 18 18 17 Blood Pressure 128/60 133/60 130/62 Pulse Oximetry 96 95 95 08/22/18 15:15 08/22/18 15:30 08/22/18 15:45 Temperature Pulse Rate 68 67 67 Respiratory Rate 16 18 17 Blood Pressure 132/62 136/57 L 139/62 Pulse Oximetry 95 95 95 08/22/18 16:00 08/22/18 16:15 08/22/18 16:30 Temperature 98.5 F Pulse Rate 67 77 73 Respiratory Rate 17 26 H 20 Blood Pressure 143/73 H 143/73 H 146/70 H Pulse Oximetry 95 95 96 08/22/18 16:43 08/22/18 16:45 08/22/18 17:00 Temperature Pulse Rate 72 75 69 Respiratory Rate 18 21 16 Blood Pressure 140/70 130/60 Pulse Oximetry 96 99 08/22/18 17:15 08/22/18 17:30 08/22/18 17:45 Temperature Pulse Rate 68 70 67 Respiratory Rate 16 21 15 Blood Pressure 129/60 138/67 129/60 Pulse Oximetry 99 99 100 08/22/18 18:00 08/22/18 18:15 08/22/18 18:30 Temperature Pulse Rate 66 65 70 Respiratory Rate 16 15 17 Blood Pressure 134/65 Pulse Oximetry 98 98 98 08/22/18 18:45 08/22/18 19:00 08/22/18 19:14 Temperature Pulse Rate 78 73 69 Respiratory Rate 22 19 14 Blood Pressure 144/75 H Pulse Oximetry 97 98 98 08/22/18 19:15 08/22/18 19:30 08/22/18 19:45 Temperature Pulse Rate 69 68 69 Respiratory Rate 15 13 16 Blood Pressure Pulse Oximetry 98 98 99 08/22/18 20:00 08/22/18 20:14 08/22/18 20:15 Temperature Pulse Rate 79 75 75 Respiratory Rate 21 17 20 Blood Pressure 164/83 H Pulse Oximetry 99 98 97 08/22/18 20:21 08/22/18 20:30 08/22/18 20:45 Temperature Pulse Rate 80 77 80 Respiratory Rate 24 23 25 H Blood Pressure Pulse Oximetry 97 97 08/22/18 21:00 08/22/18 21:14 08/22/18 21:15 Temperature 97.9 F Pulse Rate 81 76 77 Respiratory Rate 20 18 22 Blood Pressure 156/75 H Pulse Oximetry 95 98 98 08/22/18 21:30 08/22/18 21:36 08/22/18 21:45 Temperature Pulse Rate 71 70 Respiratory Rate 14 18 28 H Blood Pressure Pulse Oximetry 99 97 97 08/22/18 22:00 08/22/18 22:14 08/22/18 22:15 Temperature Pulse Rate 69 68 69 Respiratory Rate 29 H 19 20 Blood Pressure 113/57 L Pulse Oximetry 97 96 96 08/22/18 22:30 08/22/18 22:45 08/22/18 23:00 Temperature Pulse Rate 69 65 63 Respiratory Rate 14 21 15 Blood Pressure Pulse Oximetry 96 96 97 08/22/18 23:14 08/22/18 23:15 08/22/18 23:30 Temperature Pulse Rate 61 61 60 Respiratory Rate 19 17 16 Blood Pressure 108/55 L Pulse Oximetry 97 95 97 08/22/18 23:34 08/22/18 23:45 08/23/18 00:00 Temperature Pulse Rate 60 60 60 Respiratory Rate 12 15 13 Blood Pressure Pulse Oximetry 97 97 97 08/23/18 00:14 08/23/18 00:15 08/23/18 00:30 Temperature Pulse Rate 60 60 59 L Respiratory Rate 13 14 14 Blood Pressure 124/64 Pulse Oximetry 97 96 97 08/23/18 00:45 08/23/18 01:00 08/23/18 01:14 Temperature 97.7 F Pulse Rate 59 L 65 65 Respiratory Rate 13 18 16 Blood Pressure 138/66 Pulse Oximetry 97 97 95 08/23/18 01:15 08/23/18 01:30 08/23/18 01:45 Temperature Pulse Rate 65 64 61 Respiratory Rate 15 14 15 Blood Pressure Pulse Oximetry 95 96 97 08/23/18 02:00 08/23/18 02:14 08/23/18 02:15 Temperature Pulse Rate 59 L 59 L 59 L Respiratory Rate 15 18 15 Blood Pressure 129/61 Pulse Oximetry 97 98 98 08/23/18 02:30 08/23/18 02:45 08/23/18 03:00 Temperature Pulse Rate 58 L 58 L 58 L Respiratory Rate 15 20 18 Blood Pressure Pulse Oximetry 98 98 98 08/23/18 03:14 08/23/18 03:15 08/23/18 03:30 Temperature Pulse Rate 57 L 57 L 75 Respiratory Rate 15 15 27 H Blood Pressure 130/62 Pulse Oximetry 98 97 100 08/23/18 03:33 08/23/18 03:45 08/23/18 04:00 Temperature Pulse Rate 77 79 67 Respiratory Rate 27 H 29 H 16 Blood Pressure Pulse Oximetry 96 94 L 95 08/23/18 04:14 08/23/18 04:15 08/23/18 04:30 Temperature Pulse Rate 67 68 68 Respiratory Rate 21 18 13 Blood Pressure 134/66 Pulse Oximetry 96 96 96 08/23/18 04:45 08/23/18 05:00 08/23/18 05:14 Temperature Pulse Rate 65 63 62 Respiratory Rate 17 16 16 Blood Pressure 110/57 L Pulse Oximetry 96 97 96 08/23/18 05:15 08/23/18 05:30 08/23/18 05:45 Temperature Pulse Rate 62 61 61 Respiratory Rate 20 15 22 Blood Pressure Pulse Oximetry 97 96 96 08/23/18 06:00 08/23/18 06:14 08/23/18 06:15 Temperature Pulse Rate 60 60 60 Respiratory Rate 13 17 11 L Blood Pressure 116/57 L Pulse Oximetry 97 97 96 08/23/18 06:30 08/23/18 06:45 08/23/18 07:00 Temperature Pulse Rate 60 60 60 Respiratory Rate 14 12 16 Blood Pressure 126/62 Pulse Oximetry 97 97 97 08/23/18 07:14 08/23/18 07:15 08/23/18 07:30 Temperature Pulse Rate 60 60 60 Respiratory Rate 21 20 16 Blood Pressure 126/62 Pulse Oximetry 97 96 96 08/23/18 07:45 08/23/18 08:00 08/23/18 08:15 Temperature 99.0 F Pulse Rate 60 60 60 Respiratory Rate 17 24 18 Blood Pressure 121/59 L Pulse Oximetry 96 96 96 08/23/18 08:30 08/23/18 08:37 08/23/18 08:40 Temperature Pulse Rate 61 60 Respiratory Rate 14 Blood Pressure Pulse Oximetry 96 99 Intake & Output 08/22/18 08/23/18 08/23/18 18:59 06:59 18:59 Intake Total 2836.2 / 2836.2 1692 / 1692 Output Total 4050 / 4050 1100 / 1100 Balance -1213.8 / -1213.8 592 / 592 Weight 92.1 kg Intake: IV 2376.2 / 2376.2 1095 / 1095 Cleviprex Inj 25 mg In 50 ml @ 150 / 150 1 MG/HR 2 mls/hr IV.CONT TITRATE PRN Rx#:[id number] Precedex Inj 1,000 MCG In NS 250 / 250 240 / 240 Inj 240 ML @ 0.2 MCG/KG/HR 5.18 mls/hr IV.CONT TITRATE PRN Rx# :[id number] Versed Inj 100 mg In 100 ml @ 2 100 / 100 MG/HR 2 mls/hr IV.CONT TITRATE PRN Rx#:[id number] Azactam Inj 2 GM In NS Inj 100 200 / 200 100 / 100 ML @ 200 mls/hr IV.SIG Q8H SATYA Rx#:[id number] MVI-12 Inj 10 ML Thiamine Inj 511.2 / 511.2 100 MG Folvite Inj 1 MG In D5W- 1/2 NS Inj 500 ML @ 127.8 mls/ hr IV.SIG DAILY SATYA Rx#: [id number] KCl 20 mEq Premix Inj 20 meq In 400 / 400 100 ml @ 50 mls/hr IV.SIG Q2H PRN Rx#:[id number] Vancomycin Inj 1,500 MG In NS 515 / 515 515 / 515 Inj 500 ML @ 250 mls/hr IV.SIG Q18H SATYA Rx#:[id number] fentaNYL 10 mcg/mL Premix Drip 250 / 250 240 / 240 2,500 mcg In 250 ml @ 50 MCG/HR 5 mls/hr IV.SIG TITRATE PRN Rx #:[id number] Tube Feeding 210 / 210 197 / 197 Tube Irrigant 50 / 50 Water Bolus Amount 200 / 200 400 / 400 Output: Urine 900 / 900 Urine Amount (Catheter) 3150 / 3150 1100 / 1100 Indwelling Urethral Catheter 3150 / 3150 1100 / 1100 Other: Date of Last Bowel Movement 08/22/18 08/22/18 08/23/18 Result Diagrams: 08/23/18 05:01 08/23/18 05:01 Other Results: Microbiology 08/18/18 11:45 Blood - Peripheral Aerobic Blood Culture - Preliminary No growth in 4 days 08/18/18 11:45 Blood - Peripheral Anaerobic Blood Culture - Preliminary No growth in 4 days 08/18/18 11:52 Blood - Peripheral Aerobic Blood Culture - Preliminary No growth in 4 days 08/18/18 11:52 Blood - Peripheral Anaerobic Blood Culture - Preliminary No growth in 4 days 08/17/18 03:20 Blood - Peripheral Aerobic Blood Culture - Final No growth in 5 days 08/17/18 03:20 Blood - Peripheral Anaerobic Blood Culture - Final No growth in 5 days 08/17/18 01:15 Blood - Peripheral Aerobic Blood Culture - Final Staphylococcus epidermidis 12/30/18 01:15 Blood - Peripheral Anaerobic Blood Culture - Final No growth in 5 days 08/17/18 00:30 Sputum - Endotracheal Gram Stain - Final 08/17/18 00:30 Sputum - Endotracheal Sputum Culture - Final No growth in 48 hours 08/11/18 14:29 Blood - Peripheral Aerobic Blood Culture - Final No growth in 5 days 08/11/18 14:29 Blood - Peripheral Anaerobic Blood Culture - Final No growth in 5 days 08/11/18 14:24 Blood - Peripheral Aerobic Blood Culture - Final No growth in 5 days 08/11/18 14:24 Blood - Peripheral Anaerobic Blood Culture - Final No growth in 5 days 08/11/18 15:00 Sputum - Endotracheal Gram Stain - Final 08/11/18 15:00 Sputum - Endotracheal Sputum Culture - Final Heavy growth normal respiratory sherman 08/09/18 11:00 Catheterized Urine Urine Culture - Final No growth in 48 hours Imaging: Laboratory Results - last 72 hr 08/15/18 08/20/18 08/21/18 11:39 15:42 03:14 WBC 6.5 RBC 3.25 L Hgb 10.5 L Hct 30.2 L MCV 93.0 MCH 32.1 MCHC 34.6 RDW 14.2 Plt Count 459 H MPV 7.4 Neut % (Auto) 74.7 H Lymph % (Auto) 16.4 [place] % (Auto) 5.9 Eos % (Auto) 2.3 Baso % (Auto) 0.7 Neut # (Auto) 4.8 Lymph # (Auto) 1.1 [place] # (Auto) 0.4 Eos # (Auto) 0.1 Baso # (Auto) 0.0 WBC Differential . Differential Comment Auto diff final Sodium 144 Potassium 3.1 L Chloride 107 Carbon Dioxide 29.0 Anion Gap 8 BUN 15 Creatinine 0.94 Estimated GFR 83 L Random Glucose 98 Calcium 8.6 Phosphorus 4.2 Magnesium 1.7 Total Bilirubin AST ALT Alkaline Phosphatase Total Protein Albumin CSF Albumin 19.6 CSF IgG 2.2 Serum IgG 336 L Serum Albumin 2.0 L CSF IgG Index 0.67 H CSF IgG Synthesis Rate +2.6 Vancomycin Trough Valproic Acid 08/21/18 08/22/18 08/22/18 11:53 04:05 04:05 WBC 7.6 RBC 3.23 L Hgb 10.6 L Hct 29.6 L MCV 91.6 MCH 32.8 MCHC 35.8 RDW 14.0 Plt Count 510 H MPV 7.9 Neut % (Auto) 79.6 H Lymph % (Auto) 11.8 [place] % (Auto) 5.6 Eos % (Auto) 2.2 Baso % (Auto) 0.8 Neut # (Auto) 6.1 Lymph # (Auto) 0.[address] # (Auto) 0.4 Eos # (Auto) 0.2 Baso # (Auto) 0.1 WBC Differential . Differential Comment Auto diff final Sodium 143 140 Potassium 3.0 L 3.1 L Chloride 104 105 Carbon Dioxide 28.7 27.3 Anion Gap 10 8 BUN 12 14 Creatinine 0.85 0.91 Estimated GFR Greater than 89 86 L Random Glucose 85 88 Calcium 8.5 8.7 Phosphorus 5.2 H D 3.9 D Magnesium 1.5 2.0 Total Bilirubin 0.4 0.5 AST 27 29 ALT 34 32 Alkaline Phosphatase 133 H 118 H Total Protein 6.6 D 6.4 Albumin 2.4 L 2.5 L CSF Albumin CSF IgG Serum IgG Serum Albumin CSF IgG Index CSF IgG Synthesis Rate Vancomycin Trough 10.1 H Valproic Acid 13 L 08/22/18 08/23/18 08/23/18 19:20 05:01 05:01 WBC 5.2 RBC 3.15 L Hgb 10.2 L Hct 29.5 L MCV 93.7 MCH 32.5 MCHC 34.7 RDW 14.2 Plt Count 460 H MPV 7.8 Neut % (Auto) 71.3 H Lymph % (Auto) 13.3 [place] % (Auto) 8.3 H Eos % (Auto) 5.9 H Baso % (Auto) 1.2 Neut # (Auto) 3.7 Lymph # (Auto) 0.[address] [place] # (Auto) 0.4 Eos # (Auto) 0.3 Baso # (Auto) 0.1 WBC Differential . Differential Comment Auto diff final Sodium 144 Potassium 3.4 L 3.6 Chloride 109 H Carbon Dioxide 26.9 Anion Gap 8 BUN 13 Creatinine 0.76 Estimated GFR Greater than 89 Random Glucose 99 Calcium 8.4 L Phosphorus 4.1 Magnesium 2.0 Total Bilirubin 0.4 AST 18 ALT 23 Alkaline Phosphatase 108 Total Protein 6.0 L Albumin 2.1 L CSF Albumin CSF IgG Serum IgG Serum Albumin CSF IgG Index CSF IgG Synthesis Rate Vancomycin Trough Valproic Acid Head CT 08/09/18 09:20 CONCLUSION: 1. No acute intracranial abnormality is seen. 2. Mild widening of the cortical sulci which could suggest some atrophy. Report was called by [Dr. Dutton to at 9:49 AM. ] Chest X-Ray 08/09/18 09:21 CONCLUSION: No acute cardiopulmonary process. Cervical Spine CT 08/09/18 09:23 CONCLUSION: 1. Fracturing through anterior flowing spurs at the anterior C6 level with the fracture extending into the anterior inferior left lateral aspect of the C6 vertebral body. Empty displacement is not seen. No other possible fractures are seen. 2. 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 3. Degenerative change. Head CTA 08/09/18 09:28 CONCLUSION: Negative CTA. Report was called by [Dr. Dutton to Dr. Faustin. A message was left on the voicemail. ] Neck CTA 08/09/18 09:28 CONCLUSION: Negative CTA of the neck. Cervical Spine MRI 08/10/18 00:00 CONCLUSION: 1. Fracturing through the prominent flowing spurs at the C6 level and extending into the anterior inferior aspect of C6 vertebral body without displacement. Minimal edema seen around the fracture site. 2. Prominent spurring extending from C4 to into the thoracic spine consistent with DISH. 3. Mild central disc protrusion at the C3-C4 level. 4. Mild disc protrusion with the apex at the left lateral recess region at the C5-C6 level. 5. Neural foraminal narrowing at the C3-C4 and C5-C6 levels. Chest X-Ray 08/10/18 00:00 CONCLUSION: ET tube in good position. Lungs are grossly clear. Head MRI 08/10/18 00:00 CONCLUSION: 1. No acute intracranial abnormality. 2. Mild atrophy. Lumbar Spine CT 08/10/18 00:00 CONCLUSION: 1. No acute abnormality seen. 2. Prominent spur seen throughout the thoracic and lumbar spine likely from DISH. 3. Mild disc bulges at the L3-L4 and L4-L5 levels. 4. Lower lumbar facet hypertrophy. Thoracic Spine CT 08/10/18 00:00 CONCLUSION: 1. No fracture is seen. 2. Prominent spurring seen throughout the thoracic spine but be secondary to DISH. 3. Subpleural areas of consolidation or atelectasis at the posterior lower lungs. Chest CTA 08/11/18 00:00 CONCLUSION: 1. No evidence of any pulmonary embolism. 2. There are bilateral infiltrates predominantly in the posterior mid to lower lung ivllarreal. 3. 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 Chest X-Ray 08/11/18 13:29 CONCLUSION: Increasing bibasal infiltrates. Venous Doppler Study 08/12/18 00:00 CONCLUSION: 1. The study is negative for bilateral lower extremity deep venous thrombosis. Chest X-Ray 08/13/18 10:17 CONCLUSION: Mild improvement in the bibasilar pulmonary infiltrates compared to the prior exam. Venous Doppler Study 08/14/18 00:00 CONCLUSION: 1. Occlusive and nonocclusive thrombus within the bilateral cephalic veins. Abdomen/Bladder Ultrasound 08/14/18 07:24 CONCLUSION: 1. Mild prominence of the right collecting system suggestive of some mild hydronephrosis. 2. The left kidney is unremarkable. 3. The urinary bladder appears to be distended with a volume of 1554 mL. Lumbar Puncture Fluoroscopy 08/15/18 12:27 CONCLUSION: 1. Uncomplicated fluoroscopically guided lumbar puncture. Chest X-Ray 08/16/18 06:00 CONCLUSION: Modest worsening parenchymal consolidation and small effusions at each base. Venous Doppler Study 08/17/18 00:00 CONCLUSION: 1. Occlusive thrombus of the cephalic veins bilaterally. No other venous thrombosis. Chest X-Ray 08/17/18 09:51 CONCLUSION: Satisfactory position of endotracheal and nasogastric tubes Persistent significant mid lung and basilar opacity without significant improvement Chest X-Ray 08/18/18 10:46 CONCLUSION: Trach tube in good position. There is no pneumothorax Chest X-Ray 08/21/18 06:00 CONCLUSION: Bibasilar areas of consolidation or atelectasis. Some degree of effusions may be present. Abdomen X-Ray 08/21/18 10:22 CONCLUSION: 1. Nonspecific marginally dilated air-filled colon. Differential considerations include mild colonic ileus. Abdomen X-Ray 08/22/18 06:00 CONCLUSION: No significant change. Chest X-Ray 08/22/18 06:00 CONCLUSION: Interval improvement in bibasilar opacity with mild residual left greater than right. There is a probable left effusion. Abdomen X-Ray 08/22/18 08:14 CONCLUSION: Interval improvement. Gastrostomy tube in good position. I see no significant distention. Chest X-Ray 08/23/18 06:00 CONCLUSION: No significant change. Objective Remarks: GENERAL: 58-year-old male on mechanical ventilation via tracheostomy arousable no acute distress. Currently on CPAP trial SKIN: Warm and dry. Continued diffuse maculopapular rash blanchable. Involving face, thorax and lower extremities improved. HEAD: Atraumatic. Normocephalic. EYES: Pupils equal and round. No scleral icterus. No injection or drainage. ENT: No nasal bleeding or discharge. Mucous membranes pink and moist. NECK: Trachea midline. Tracheostomy site clean and dry, tube well secured. CARDIOVASCULAR: Regular rate and rhythm. S1, S2. No S4. No murmur, rub. No JVD. RESPIRATORY: No accessory muscle use. Persistent coarse crackles in the bases. Plentiful mobile secretions. GASTROINTESTINAL: Abdomen soft, non-tender, slightly distended. Hypoactive bowel sounds are appreciated. PEG tube site is clean dry and intact. MUSCULOSKELETAL: Extremities with trace lower extremity peripheral edema. No obvious deformities. NEUROLOGICAL: Remains arousable on the ventilator, nods head to simple questions.. Moving all 4 extremities spontaneously. Assessment and Plan - Assessment and Plan Plan: Neuro/Psych: Acute toxic metabolic encephalopathy Involuntary movements -EEG 08/09- for epileptiform activity Anterior C6 fracture -[place] J collar times 6 weeks EtOH abuse/withdrawal. Level 114 admission Currently on fentanyl drip at 00 william grams an hour and midazolam drip at 5 mg an hour for sedation/analgesia while intubated Dexmedetomidine drip added 08/14 for weaning currently 1.0 m/kg/h Follow neuro checks. Neurology neurosurgery consulted. EEG done in ER did not reveal any seizure activity with ongoing involuntary movements. MRI brain unremarkable, MRI C-spine nondisplaced C6 fracture, continue [place] J collar for 6 weeks per neurosurgery. Aspirin placed on hold for lumbar puncture. Okay to resume discontinued lacosamide 100 mg IV twice daily secondary to rash Started thiamine/MVI/folic acid daily and history of EtOH abuse Currently on chlordiazepoxide 50 mg mg twice daily Currently on quetiapine 75 mg twice daily with 100 mg at night. Currently on Depakene 250 mg 3 times daily Oxycodone 5 mg every 6 hours Neurology started acyclovir IV while awaiting lumbar puncture. This discontinued 08/15 with negative HSV Neuropsychiatric consult for assistance weaning Cardiovascular: Hypertensive emergency Elevated cholesterol/total Elevated HDL Rhabdomyolysis downtrending Initially was hypertensive on arrival. Hydralazine and labetalol and clevidipine drip as needed. Continue carvedilol 12.5 mg p.o. twice daily. Increase to 25 mg twice daily Currently on hydralazine 100 mg 3 times daily, isoSorbide dinitrate 20 mg 3 times daily Add lisinopril 10mg mg twice daily amlodipine 10 mg daily Troponin 0.04 Pulmonary: Acute hypoxic hypercapnic respiratory failure Status post percutaneous tracheostomy 08/[address] Conn Intubated for airway protection and placed on mechanical ventilation following episode of emesis with question of aspiration on 08/10 AM. Extubated 08/17 but reintubated same day PRVC ventilation 16/550/08/23/39 Currently on CPAP 10/5 at 30%. T-piece daytime. CPAP at night. vent bundle, Albuterol/ipratropium aerosols every 4 hours with albuterol aerosols every 2 hours as needed dyspnea tolerated CPAP trial and extubated on 08/11 however about 5 hours following extubation and required reintubation for hypoxic respiratory failure of unclear etiology. CT pulmonary angiogram negative for PE but possible right subclavian thrombus. Check upper extremity Dopplers revealed superficial thrombus Consulted pulmonary for further evaluation of hypoxic respiratory failure X-ray chest in a.m. 08/24 GI/liver: Elevated transaminases downward trending Hypoalbuminemia with moderate protein calorie malnutrition Status post PEG by Dr. Jensen 08/20 [facility] recommends tube feeds with Nepro goal 50 cc an hour and advance to goal as tolerated. Currently at 20 cc an hour. We will advance to goal at 50 cc today. Famotidine 20 mg daily for GI prophylaxis Docusate sodium/senna 1 tablet twice daily for bowel regimen. Added polyethylene glycol 17 g twice daily and lactulose 30 cc twice daily Negative hepatitis panel Started metoclopramide 5 grams IV every 8 FEN/renal/: Acute kidney injury resolving Hypokalemia Urinary retention with mild bilateral hydronephrosis IV hydration, strict intake output, monitor and replete electrolytes, follow BUN /creatinine. Bicarbonate drip discontinued 08/13. Free water 200 cc every 8 hours Avoid nephrotoxic medications. Continue Goff as needed for urinary retention. Recheck potassium this evening replace per protocol. ID: [id number] discontinued vancomycin, piperacillin/tazobactam and acyclovir. Watch for fever/leukocytosis Blood cultures x21 10/10 no growth to date repeat blood cultures 08/17 and sputum pending Sputum 08/11 no growth to date Number puncture with IR today 08/15-negative HSV. Started vancomycin, piperacillin/tazobactam 08/17 3 discontinued Zosyn 08/18 due to rash. Started aztreonam 2 g IV every 8 hours discontinued all antibiotics 08/23 Endocrine: Watch for hyperglycemia, SSI for glycemic control with aspart insulin/low regimen every 6 hours Normal TSH Heme: Normocytic anemia Thrombocytosis Documentation of prior possible right subclavian occlusion -negative Doppler Bilateral cephalic occlusive and nonocclusive superficial venous thrombosis Follow CBC. No indication for transfusion of blood products at this time Subcu heparin DVT prophylaxis MSK: Diffuse idiopathic skeletal hyperostosis drug rash possible DR ESS Weight loss encouraged PT evaluate and treat On IV famotidine, Prophylaxis: SCDs. heparin subcu. Level 3 follow-up Code Status: Full code
[2018-08-23] MEDS ORDERED: Carvedilol 12.5 MG Tablet PO SCH (09:00)
[2018-08-23] MEDS: Midazolam 100 MG/100 ML Inj 100 MG/100 ML BAG IV.CONT PRN (13:30)
[2018-08-24] MEDS: Artificial Tears Opth Drops 15 ML Bottle EACH EYE SCH ×3 (02:02→16:14)
[2018-08-24] MEDS: Oral Hygiene Kit OROPHARYNG SCH ×4 (02:02→16:13)
[2018-08-24] MEDS: Heparin - SQ 10,000 UNITS/ML Vial SQ SCH ×3 (05:00→20:22)
[2018-08-24 05:03] LABS: Baso # (Auto) 0.1 th/mm3 (0.0-0.2); Baso % (Auto) 0.8 % (0.0-2.0); Eos # (Auto) 0.5 th/mm3 (0.0-0.4); Eos % (Auto) 6.1 % (0.0-4.0); Hematocrit 32.4 % (39.0-51.0); Hemoglobin 11.3 gm/dL (13.0-17.0); Lymph # (Auto) 1.2 th/mm3 (1.0-4.8); Lymph % (Auto) 16.7 % (9.0-44.0); Mean Corpuscular HGB Conc 34.8 % (32.0-36.0); Mean Corpuscular Hemoglobin 32.1 pg (27.0-34.0); Mean Corpuscular Volume 92.1 fL (80.0-100.0); Mean Platelet Volume 7.8 fL (7.0-11.0); Mono # (Auto) 0.8 th/mm3 (0.0-0.9); Mono % (Auto) 10.5 % (0.0-8.0); Neut # (Auto) 4.9 th/mm3 (1.8-7.7); Neut % (Auto) 65.9 % (16.0-70.0); Platelet Count 518 th/mm3 (150-450); Red Blood Count 3.51 mil/mm3 (4.50-5.90); Red Cell Distribution Width 14.2 % (11.6-17.2); White Blood Count 7.5 th/mm3 (4.0-11.0)
--- NOTE | 2018-08-24 05:35 | XR ---
EXAM DATE: 08/24/2018 4:49 AM EST AGE/SEX: 58 years / Male INDICATIONS: Respiratory failure. CLINICAL DATA: This is the patient's subsequent encounter. Patient reports that signs and symptoms h ave been present for 3 days and indicates a pain score of Nonresponsive. MEDICAL/SURGICAL HISTORY: Hypertension. Smoker. None. COMPARISON: [facility] [place], CHEST 1V SINGLE AP, 08/23/2018. . FINDINGS: A single AP semierect portable view of the chest was obtained and again demonstrates a tracheostomy t ube in place. The heart size is mildly prominent and there are mild hazy perihilar and bibasilar opac ities again noted. The left costophrenic angle remains blunted in appearance. The patient is mildly r otated to the left. The bony thorax is unremarkable. CONCLUSION: No significant change. Electronically signed by: Abel Jerez MD Board Certified Radiologist 08/24/2018 5:33 AM EST
[2018-08-24] MEDS: Chlorhexidine 0.12% Oral Kit 15 ML UDC OROPHARYNG SCH ×2 (08:00→20:22)
--- NOTE | 2018-08-24 09:31 | P.PNCC ---
Subjective Subjective Remarks/Hospital Course: 08/09: 58-year-old male who was found down in his friend's garage this morning. He has a history of alcohol abuse. He recently sold his house and was staying at a friend's home. Reportedly he was due to fly later today. Patient was brought to the ER by EMS and was noted to have involuntary movements with jerking movements involving upper and lower extremities as well as his head. He received Ativan 3 mg IV and was loaded with Keppra. Initially stroke alert was called. Head CT was negative for any bleed however there was question of C6 fracture. Neurology and neurosurgery were consulted. Patient was loaded with IV Cerebyx and Vimpat by neurology. He had a [place] J collar placed after placing hard cervical collar by neurosurgery. When I evaluated the patient in the ER he was still having involuntary movements which appeared to be episodic with occasional twitchings on his face and nystagmus. This did not appear to be generalized tonic-clonic convulsions however appeared more like an extrapyramidal reaction. I ordered a stat EEG. Patient moving around too much to obtain MRI at this time. His urine tox screen was negative. He was positive for alcohol. Patient nonverbal. His involuntary movements get exaggerated on stimulation. He was reportedly completely normal yesterday. 08/10: Patient had an episode of emesis last night followed by labored breathing. He continued to have involuntary movements. He was intubated and placed on mechanical ventilation. Currently sedated with propofol, orally intubated on mechanical ventilation. Awaiting MRI brain and C-spine. EEG done yesterday did not show any seizure activity. 08/11: Sedated, orally intubated on mechanical ventilation. MRI brain unremarkable. MRI C-spine with hairline C6 fracture with no displacement. 08/12: Remains sedated, orally intubated on mechanical ventilation. Reintubated yesterday for significant hypoxia and respiratory distress with O2 sats dropping to the 70s despite nonrebreather facemask. CT pulmonary angiogram was negative for PE and showed bilateral infiltrates at the bases. 08/13: Remains sedated, orally intubated on mechanical ventilation. On propofol /fentanyl GTT. Starting tube feeds 08/14: T-max 99.4. Currently 98.3. Scheduled for IR for lumbar puncture today. Patient acute injury. Patient is on vancomycin, acyclovir and did receive IV contrast recently. Renal ultrasound ordered. Urine eosinophils, sodium and creatinine ordered. Arousable and does follow commands on the ventilator. Breakthrough agitation/involuntary systemic movements noted 08/15: Plan for lumbar puncture today. Will likely try sedation vacation overnight. See 4 mg of midazolam overnight due to agitation. Appears comfortable. Intermittently follows commands. 08/16: Lumbar puncture from yesterday accomplished. We will try sedation vacation again today and tried on dexmedetomidine drip. Rash is much improved. Discontinued lacosamide possible source of rash. Remains leukopenic and elevated eosinophils. 08/17: Low-grade fevers overnight. Blood cultures x2, sputum performed. Will start on piperacillin/tazobactam vancomycin. Extubated today. Tolerated about 2 hours but became hypoxic on 100% nonrebreather and tachypneic. Intubated with axial traction. Will need tracheostomy has failed extubation x2 08/18: T-max 100.1. Failed extubation requiring reintubation. Tracheostomy planned for 10 AM today. 08/19: Afebrile overnight. Chest x-ray following tracheostomy demonstrates tube in good position safely above the tory. Basilar infiltrates persist but clearing. On spontaneous breathing trial earlier today he had apneic episodes. With no sedation he becomes extremely agitated however. 08/20: Percutaneous gastrostomy tube plan for today. Very agitated. Remains on clevidipine drip. 08/21: Status post percutaneous gastrostomy tube 08/20. Some distention. Currently drainage. Will check KUB. Very agitated requiring midazolam drip. We will consult neuropsychology for assistance. 08/22: Low-grade fevers overnight. Remains on multiple sedatives. Adjusted increased valproic acid and quetiapine yesterday per neuropsychiatrist rec. On trickle feeds. Subjective 08/23: T-max 99.8. Currently afebrile. We will discontinue antibiotics today. Did not require held overnight. We will advance tube feeds to goal. Positive BM. Interactive weekly. 08/24: Patient continues to follow commands but appears to be confused at times. He lifts his right leg when asked to move the left leg. He can internally rotate his right arm but does not lift against gravity. Analgesia and Versed sedation required for vent synchrony and to remain calm during T- piece trials. Objective Vital Signs / I&O: Vital Signs 08/23/18:30 08/23/18 09:45 08/23/18 10:00 Temperature Pulse Rate 81 75 76 Respiratory Rate 26 H 20 20 Blood Pressure Pulse Oximetry 93 L 95 95 08/23/18 10:10 08/23/18 10:14 08/23/18 10:15 Temperature Pulse Rate 72 72 Respiratory Rate 13 13 Blood Pressure 112/57 L Pulse Oximetry 97 97 97 08/23/18 10:30 08/23/18 11:00 08/23/18 11:15 Temperature Pulse Rate 72 86 87 Respiratory Rate 12 23 20 Blood Pressure 157/80 H Pulse Oximetry 97 93 L 96 08/23/18 11:30 08/23/18 11:45 08/23/18 12:00 Temperature 99.1 F Pulse Rate 76 75 74 Respiratory Rate 16 16 22 Blood Pressure 129/67 Pulse Oximetry 96 96 96 08/23/18 12:07 08/23/18 12:15 08/23/18 12:30 Temperature Pulse Rate 73 74 73 Respiratory Rate 24 20 23 Blood Pressure Pulse Oximetry 96 95 08/23/18 12:45 08/23/18 13:00 08/23/18 13:15 Temperature Pulse Rate 73 73 73 Respiratory Rate 24 22 25 H Blood Pressure 136/68 Pulse Oximetry 95 94 L 94 L 08/23/18 13:30 08/23/18 13:45 08/23/18 14:00 Temperature Pulse Rate 73 73 73 Respiratory Rate 23 28 H 27 H Blood Pressure 126/61 Pulse Oximetry 93 L 93 L 94 L 08/23/18 14:15 08/23/18 14:30 08/23/18 14:45 Temperature Pulse Rate 73 73 73 Respiratory Rate 32 H 30 H 36 H Blood Pressure Pulse Oximetry 93 L 93 L 94 L 08/23/18 15:00 08/23/18 15:15 08/23/18 15:30 Temperature Pulse Rate 73 74 73 Respiratory Rate 24 25 H 23 Blood Pressure 129/61 Pulse Oximetry 94 L 94 L 94 L 08/23/18 15:45 08/23/18 15:59 08/23/18 16:00 Temperature Pulse Rate 73 71 73 Respiratory Rate 22 21 34 H Blood Pressure 132/64 Pulse Oximetry 94 L 96 08/23/18 16:09 08/23/18 16:15 01/05/19 16:30 Temperature Pulse Rate 74 75 Respiratory Rate 20 27 H 30 H Blood Pressure Pulse Oximetry 97 94 L 08/23/18 16:45 08/23/18 17:00 08/23/18 17:15 Temperature Pulse Rate 83 87 90 Respiratory Rate 34 H 29 H 31 H Blood Pressure 133/64 Pulse Oximetry 95 97 96 08/23/18 17:30 08/23/18 17:45 08/23/18 18:00 Temperature Pulse Rate 82 83 83 Respiratory Rate 12 13 15 Blood Pressure 150/75 H Pulse Oximetry 96 97 97 08/23/18 18:15 08/23/18 18:30 08/23/18 18:45 Temperature Pulse Rate 81 86 82 Respiratory Rate 14 12 13 Blood Pressure Pulse Oximetry 97 97 97 08/23/18 19:00 08/23/18 19:15 08/23/18 19:30 Temperature Pulse Rate 82 82 79 Respiratory Rate 11 L 12 13 Blood Pressure 125/57 L Pulse Oximetry 97 98 98 08/23/18 19:45 08/23/18 20:00 08/23/18 20:15 Temperature Pulse Rate 82 91 H 82 Respiratory Rate 13 12 13 Blood Pressure 144/70 H Pulse Oximetry 98 97 97 08/23/18 20:30 08/23/18 20:45 08/23/18 21:00 Temperature Pulse Rate 90 81 83 Respiratory Rate 11 L 12 13 Blood Pressure 111/53 L Pulse Oximetry 96 96 96 08/23/18 21:15 08/23/18 21:30 08/23/18 21:45 Temperature Pulse Rate 80 79 79 Respiratory Rate 13 13 15 Blood Pressure Pulse Oximetry 97 97 97 08/23/18 22:00 08/23/18 22:15 08/23/18 22:30 Temperature Pulse Rate 77 77 77 Respiratory Rate 10 L 12 13 Blood Pressure 118/58 L Pulse Oximetry 96 96 96 08/23/18 22:45 08/23/18 23:00 08/23/18 23:15 Temperature Pulse Rate 76 76 76 Respiratory Rate 15 13 14 Blood Pressure 117/58 L Pulse Oximetry 96 95 95 08/23/18 23:30 08/23/18 23:42 08/23/18 23:45 Temperature Pulse Rate 78 85 84 Respiratory Rate 10 L 20 14 Blood Pressure Pulse Oximetry 96 95 08/24/18 00:00 08/24/18 00:15 08/24/18 00:30 Temperature Pulse Rate 78 76 74 Respiratory Rate 12 13 12 Blood Pressure 109/55 L Pulse Oximetry 95 95 95 08/24/18 00:45 08/24/18 01:00 08/24/18 01:15 Temperature Pulse Rate 73 73 73 Respiratory Rate 10 L 12 10 L Blood Pressure 115/56 L Pulse Oximetry 95 95 97 08/24/18 01:30 08/24/18 01:45 08/24/18 02:00 Temperature Pulse Rate 76 74 73 Respiratory Rate 14 13 12 Blood Pressure 135/63 Pulse Oximetry 95 95 96 08/24/18 02:15 08/24/18 02:30 08/24/18 02:45 Temperature Pulse Rate 74 73 73 Respiratory Rate 11 L 10 L 10 L Blood Pressure Pulse Oximetry 96 96 96 08/24/18 03:00 08/24/18 03:15 08/24/18 03:30 Temperature Pulse Rate 73 72 71 Respiratory Rate 10 L 12 10 L Blood Pressure 135/60 Pulse Oximetry 96 96 96 08/24/18 03:45 08/24/18 03:57 08/24/18 04:00 Temperature Pulse Rate 73 80 79 Respiratory Rate 11 L 14 12 Blood Pressure 151/70 H Pulse Oximetry 97 98 99 08/24/18 04:15 08/24/18 04:30 08/24/18 04:45 Temperature Pulse Rate 75 73 72 Respiratory Rate 12 12 10 L Blood Pressure Pulse Oximetry 100 97 96 08/24/18 05:00 08/24/18 05:15 08/24/18 05:30 Temperature Pulse Rate 71 76 72 Respiratory Rate 114 H 11 L 12 Blood Pressure 132/62 Pulse Oximetry 97 97 96 08/24/18 05:45 08/24/18 06:00 08/24/18 08:00 Temperature Pulse Rate 71 70 Respiratory Rate 12 11 L 10 L Blood Pressure 110/55 L Pulse Oximetry 96 96 96 08/24/18 09:09 Temperature Pulse Rate 76 Respiratory Rate 20 Blood Pressure Pulse Oximetry Intake & Output 08/23/18 08/24/18 08/24/18 18:59 06:59 18:59 Intake Total 1558.2 / 1558.2 965 / 965 Output Total 6120 / 6120 1620 / 1620 Balance -4561.8 / -4561.8 -655 / -655 Weight 90.6 kg Intake: IV 861.2 / 861.2 240 / 240 Precedex Inj 1,000 MCG In NS 250 / 250 Inj 240 ML @ 0.2 MCG/KG/HR 5.18 mls/hr IV.CONT TITRATE PRN Rx# :[id number] Versed Inj 100 mg In 100 ml @ 2 100 / 100 MG/HR 2 mls/hr IV.CONT TITRATE PRN Rx#:[id number] MVI-12 Inj 10 ML Thiamine Inj 511.2 / 511.2 100 MG Folvite Inj 1 MG In D5W- 1/2 NS Inj 500 ML @ 127.8 mls/ hr IV.SIG DAILY SATYA Rx#: [id number] fentaNYL 10 mcg/mL Premix Drip 240 / 240 2,500 mcg In 250 ml @ 50 MCG/HR 5 mls/hr IV.SIG TITRATE PRN Rx #:[id number] Oral 0 / 0 0 / 0 Tube Feeding 197 / 197 425 / 425 Tube Irrigant 50 / 50 Water Bolus Amount 400 / 400 300 / 300 Anesthesia Amount 50 / 50 Output: Urine 900 / 900 Stool 20 / 20 Urine Amount (Catheter) 4800 / 4800 1620 / 1620 Indwelling Urethral Catheter 4800 / 4800 1620 / 1620 Gastric Drainage 400 / 400 Left Upper Quadrant 400 / 400 Other: # Incontinent Voids 2 Date of Last Bowel Movement 08/23/18 08/23/18 # Bowel Movements 0 0 # Incontinent Bowel Movements 1 Result Diagrams: 08/24/18 03:41 08/23/18 05:01 Objective Remarks: GENERAL: 58-year-old male on mechanical ventilation via tracheostomy. SKIN: Warm and dry. HEAD: Atraumatic. Normocephalic. EYES: Pupils equal and round. No scleral icterus. No injection or drainage. ENT: No nasal bleeding or discharge. Mucous membranes pink and moist. NECK: Trachea midline. Tracheostomy site clean and dry, tube well secured. CARDIOVASCULAR: Regular rate and rhythm. S1, S2. No S4. No murmur, rub. No JVD. RESPIRATORY: No accessory muscle use. Persistent coarse crackles in the bases. Plentiful mobile secretions. GASTROINTESTINAL: Abdomen soft, non-tender, slightly distended. Hypoactive bowel sounds are appreciated. PEG tube site is clean dry and intact. MUSCULOSKELETAL: Extremities with trace lower extremity peripheral edema. No obvious deformities. NEUROLOGICAL: Remains arousable on the ventilator, nods head to simple questions.. Moving all 4 extremities spontaneously, but right arm does not raise against gravity and left leg is not moved as well as right. Assessment and Plan - Assessment and Plan Plan: Neuro/Psych: Acute toxic metabolic encephalopathy Involuntary movements -EEG 08/09- for epileptiform activity Anterior C6 fracture -[place] J collar times 6 weeks EtOH abuse/withdrawal. Level 114 admission Currently on fentanyl drip at 00 william grams an hour and midazolam drip at 5 mg an hour for sedation/analgesia while intubated Dexmedetomidine drip added 08/14 for weaning currently 1.0 m/kg/h Follow neuro checks. Neurology neurosurgery consulted. EEG done in ER did not reveal any seizure activity with ongoing involuntary movements. MRI brain unremarkable, MRI C-spine nondisplaced C6 fracture, continue [place] J collar for 6 weeks per neurosurgery. Aspirin placed on hold for lumbar puncture. Okay to resume discontinued lacosamide 100 mg IV twice daily secondary to rash Started thiamine/MVI/folic acid daily and history of EtOH abuse Currently on chlordiazepoxide 50 mg mg twice daily Currently on quetiapine 75 mg twice daily with 100 mg at night. Currently on Depakene 250 mg 3 times daily Oxycodone 5 mg every 6 hours Neurology started acyclovir IV while awaiting lumbar puncture. This discontinued 08/15 with negative HSV Neuropsychiatric consult for assistance weaning Cardiovascular: Hypertensive emergency Elevated cholesterol/total Elevated HDL Rhabdomyolysis downtrending Initially was hypertensive on arrival. Hydralazine and labetalol and clevidipine drip as needed. Continue carvedilol 12.5 mg p.o. twice daily. Increase to 25 mg twice daily Currently on hydralazine 100 mg 3 times daily, isoSorbide dinitrate 20 mg 3 times daily Add lisinopril 10mg mg twice daily amlodipine 10 mg daily Troponin 0.04 Blood pressure control acceptable 9 Pulmonary: Acute hypoxic hypercapnic respiratory failure Status post percutaneous tracheostomy 08/[address] Conn Intubated for airway protection and placed on mechanical ventilation following episode of emesis with question of aspiration on 08/10 AM. Extubated 08/17 but reintubated same day PRVC ventilation // Currently on CPAP 05/23 at 30%. T-piece daytime. CPAP at night. Tolerating T-piece during the day. vent bundle, Albuterol/ipratropium aerosols every 4 hours with albuterol aerosols every 2 hours as needed dyspnea tolerated CPAP trial and extubated on 08/11 however about 5 hours following extubation and required reintubation for hypoxic respiratory failure of unclear etiology. CT pulmonary angiogram negative for PE but possible right subclavian thrombus. Check upper extremity Dopplers revealed superficial thrombus Consulted pulmonary for further evaluation of hypoxic respiratory failure X-ray chest in a.m. 08/24. Reviewed. GI/liver: Elevated transaminases downward trending Hypoalbuminemia with moderate protein calorie malnutrition Status post PEG by Dr. Jensen 08/20 [facility] recommends tube feeds with Nepro goal 50 cc an hour and advance to goal as tolerated. Currently at 20 cc an hour. We will advance to goal at 50 cc today. Famotidine 20 mg daily for GI prophylaxis Docusate sodium/senna 1 tablet twice daily for bowel regimen. Added polyethylene glycol 17 g twice daily and lactulose 30 cc twice daily Negative hepatitis panel Started metoclopramide 5 grams IV every 8 Moderate abdominal distention today. FEN/renal/: Acute kidney injury resolving Hypokalemia Urinary retention with mild bilateral hydronephrosis IV hydration, strict intake output, monitor and replete electrolytes, follow BUN /creatinine. Bicarbonate drip discontinued 08/13. Free water 200 cc every 8 hours Avoid nephrotoxic medications. Continue Goff as needed for urinary retention. ID: [id number] discontinued vancomycin, piperacillin/tazobactam and acyclovir. Watch for fever/leukocytosis Blood cultures x21 10/10 no growth to date repeat blood cultures 08/17 and sputum pending Sputum 08/11 no growth to date Number puncture with IR today 08/15-negative HSV. Started vancomycin, piperacillin/tazobactam 08/17 3 discontinued Zosyn 08/18 due to rash. Started aztreonam 2 g IV every 8 hours discontinued all antibiotics 08/23 Endocrine: Watch for hyperglycemia, SSI for glycemic control with aspart insulin/low regimen every 6 hours Normal TSH Heme: Normocytic anemia Thrombocytosis Documentation of prior possible right subclavian occlusion -negative Doppler Bilateral cephalic occlusive and nonocclusive superficial venous thrombosis Follow CBC. No indication for transfusion of blood products at this time Subcu heparin DVT prophylaxis MSK: Diffuse idiopathic skeletal hyperostosis drug rash possible DR DC Resolving Weight loss encouraged PT evaluate and treat On IV famotidine, Prophylaxis: SCDs. heparin subcu. Overall impression: New weakness right arm and left leg, does not fit with any specific location in the brain. Will follow clinical exam closely today. Continue to promote T-piece trials.
[2018-08-24] MEDS: Aspirin 300 MG Supp RECTAL SCH (09:57)
[2018-08-24] MEDS: Polyethylene Glycol 3350 17 GM Packet PO SCH (09:57)
[2018-08-24] MEDS: Docusate Sodium Liq 100 MG/10 ML UDC G-TUBE SCH ×2 (09:57→20:22)
[2018-08-24] MEDS: Famotidine PF Inj 20 MG/2 ML Vial IV.PUSH SCH ×2 (09:57→20:23)
[2018-08-24] MEDS: Lisinopril 10 MG Tablet PO SCH ×2 (09:59→20:24)
[2018-08-24] MEDS: chlordiazePOXIDE 25 MG Capsule PO SCH ×2 (09:59→20:22)
[2018-08-24] MEDS: Folic Acid 1 MG Tablet PO SCH (09:59)
[2018-08-24] MEDS: Carvedilol 12.5 MG Tablet PO SCH ×2 (10:00→20:22)
[2018-08-24] MEDS: amLODIPine 5 MG Tablet PO SCH (10:00)
[2018-08-24] MEDS: QUEtiapine 25 MG Tablet PO SCH ×3 (10:00→18:11)
[2018-08-24] MEDS: Dexmedetomidine Inj 1,000 MCG in Sodium Chlor 0.9% Inj 240 ML IV.CONT PRN ×2 (10:59→22:06)
[2018-08-24] MEDS ORDERED: Pharmacy Ordered Lab Info OTHER ONE (11:45)
[2018-08-24 12:13] LABS: Alanine Aminotransferase 22 U/L (12-78); Albumin 2.2 g/dL (3.4-5.0); Anion Gap 4 meq/L (5-15); Aspartate Aminotransferase 17 U/L (15-37); Blood Urea Nitrogen 14 mg/dL (7-18); Calcium 8.9 mg/dL (8.5-10.1); Carbon Dioxide 29.5 meq/L (21.0-32.0); Chloride 110 meq/L (98-107); Glomerular Filtration Rate 77 mL/min (>89); Glucose,Random 104 mg/dL (74-106); Phosphorus 4.4 mg/dL (2.5-4.9); Potassium 3.2 meq/L (3.5-5.1); Sodium 143 meq/L (136-145)
[2018-08-24 12:16] LABS: Alkaline Phosphatase 116 U/L (45-117); Total Protein 6.4 g/dL (6.4-8.2)
[2018-08-24] MEDS: Multivitamin Inj 10 ML, Thiamine Inj 100 MG, Folic Acid Inj 1 MG in Dextrose 5%/NaCl 0.... IV.SIG SCH (12:16)
[2018-08-24] MEDS: Midazolam 100 MG/100 ML Inj 100 MG/100 ML BAG IV.CONT PRN (16:13)
[2018-08-24] MEDS: fentaNYL 10 mcg/mL Premix Drip 2,500 MCG/250 ML BAG IV.SIG PRN (16:16)
[2018-08-25] MEDS: Artificial Tears Opth Drops 15 ML Bottle EACH EYE SCH ×2 (00:22→09:17)
[2018-08-25] MEDS: Oral Hygiene Kit OROPHARYNG SCH ×5 (00:22→22:59)
[2018-08-25] MEDS: Heparin - SQ 10,000 UNITS/ML Vial SQ SCH ×2 (03:57→11:07)
[2018-08-25 05:03] LABS: Anion Gap 6 meq/L (5-15); Blood Urea Nitrogen 14 mg/dL (7-18); Calcium 9.1 mg/dL (8.5-10.1); Carbon Dioxide 29.9 meq/L (21.0-32.0); Chloride 105 meq/L (98-107); Glomerular Filtration Rate Greater Than 89 mL/min (>89); Glucose,Random 102 mg/dL (74-106); Potassium 3.1 meq/L (3.5-5.1); Sodium 141 meq/L (136-145)
[2018-08-25] MEDS: Potassium Chlor 20 mEq Premix 20 MEQ/100 ML PIGGYBACK IV.SIG PRN ×4 (05:29→12:34)
[2018-08-25] MEDS: Chlorhexidine 0.12% Oral Kit 15 ML UDC OROPHARYNG SCH ×2 (09:13→21:54)
[2018-08-25] MEDS: fentaNYL 10 mcg/mL Premix Drip 2,500 MCG/250 ML BAG IV.SIG PRN (09:13)
[2018-08-25] MEDS: Dexmedetomidine Inj 1,000 MCG in Sodium Chlor 0.9% Inj 240 ML IV.CONT PRN ×2 (09:14→21:54)
[2018-08-25] MEDS: Carvedilol 12.5 MG Tablet PO SCH ×2 (09:16→21:53)
[2018-08-25] MEDS: chlordiazePOXIDE 25 MG Capsule PO SCH ×3 (09:16→18:33)
[2018-08-25] MEDS: QUEtiapine 25 MG Tablet PO SCH (09:16)
[2018-08-25] MEDS: amLODIPine 5 MG Tablet PO SCH (09:16)
[2018-08-25] MEDS: Lisinopril 10 MG Tablet PO SCH (09:17)
[2018-08-25] MEDS: Folic Acid 1 MG Tablet PO SCH (09:17)
[2018-08-25] MEDS: Aspirin 300 MG Supp RECTAL SCH (09:17)
[2018-08-25] MEDS: Famotidine PF Inj 20 MG/2 ML Vial IV.PUSH SCH ×2 (09:24→21:53)
[2018-08-25] MEDS: Docusate Sodium Liq 100 MG/10 ML UDC G-TUBE SCH ×2 (09:25→21:53)
[2018-08-25] MEDS: Polyethylene Glycol 3350 17 GM Packet PO SCH (09:25)
[2018-08-25] MEDS: Labetalol HCl Inj 100 MG/20 ML Vial IV.PUSH PRN (10:35)
--- NOTE | 2018-08-25 10:40 | P.PNCC ---
Subjective Subjective Remarks/Hospital Course: 08/09: 58-year-old male who was found down in his friend's garage this morning. He has a history of alcohol abuse. He recently sold his house and was staying at a friend's home. Reportedly he was due to fly later today. Patient was brought to the ER by EMS and was noted to have involuntary movements with jerking movements involving upper and lower extremities as well as his head. He received Ativan 3 mg IV and was loaded with Keppra. Initially stroke alert was called. Head CT was negative for any bleed however there was question of C6 fracture. Neurology and neurosurgery were consulted. Patient was loaded with IV Cerebyx and Vimpat by neurology. He had a [place] J collar placed after placing hard cervical collar by neurosurgery. When I evaluated the patient in the ER he was still having involuntary movements which appeared to be episodic with occasional twitchings on his face and nystagmus. This did not appear to be generalized tonic-clonic convulsions however appeared more like an extrapyramidal reaction. I ordered a stat EEG. Patient moving around too much to obtain MRI at this time. His urine tox screen was negative. He was positive for alcohol. Patient nonverbal. His involuntary movements get exaggerated on stimulation. He was reportedly completely normal yesterday. 08/10: Patient had an episode of emesis last night followed by labored breathing. He continued to have involuntary movements. He was intubated and placed on mechanical ventilation. Currently sedated with propofol, orally intubated on mechanical ventilation. Awaiting MRI brain and C-spine. EEG done yesterday did not show any seizure activity. 08/11: Sedated, orally intubated on mechanical ventilation. MRI brain unremarkable. MRI C-spine with hairline C6 fracture with no displacement. 08/12: Remains sedated, orally intubated on mechanical ventilation. Reintubated yesterday for significant hypoxia and respiratory distress with O2 sats dropping to the 70s despite nonrebreather facemask. CT pulmonary angiogram was negative for PE and showed bilateral infiltrates at the bases. 08/13: Remains sedated, orally intubated on mechanical ventilation. On propofol /fentanyl GTT. Starting tube feeds 08/14: T-max 99.4. Currently 98.3. Scheduled for IR for lumbar puncture today. Patient acute injury. Patient is on vancomycin, acyclovir and did receive IV contrast recently. Renal ultrasound ordered. Urine eosinophils, sodium and creatinine ordered. Arousable and does follow commands on the ventilator. Breakthrough agitation/involuntary systemic movements noted 08/15: Plan for lumbar puncture today. Will likely try sedation vacation overnight. See 4 mg of midazolam overnight due to agitation. Appears comfortable. Intermittently follows commands. 08/16: Lumbar puncture from yesterday accomplished. We will try sedation vacation again today and tried on dexmedetomidine drip. Rash is much improved. Discontinued lacosamide possible source of rash. Remains leukopenic and elevated eosinophils. 08/17: Low-grade fevers overnight. Blood cultures x2, sputum performed. Will start on piperacillin/tazobactam vancomycin. Extubated today. Tolerated about 2 hours but became hypoxic on 100% nonrebreather and tachypneic. Intubated with axial traction. Will need tracheostomy has failed extubation x2 08/18: T-max 100.1. Failed extubation requiring reintubation. Tracheostomy planned for 10 AM today. 08/19: Afebrile overnight. Chest x-ray following tracheostomy demonstrates tube in good position safely above the tory. Basilar infiltrates persist but clearing. On spontaneous breathing trial earlier today he had apneic episodes. With no sedation he becomes extremely agitated however. 08/20: Percutaneous gastrostomy tube plan for today. Very agitated. Remains on clevidipine drip. 08/21: Status post percutaneous gastrostomy tube 08/20. Some distention. Currently drainage. Will check KUB. Very agitated requiring midazolam drip. We will consult neuropsychology for assistance. 08/22: Low-grade fevers overnight. Remains on multiple sedatives. Adjusted increased valproic acid and quetiapine yesterday per neuropsychiatrist rec. On trickle feeds. 08/23: T-max 99.8. Currently afebrile. We will discontinue antibiotics today. Did not require held overnight. We will advance tube feeds to goal. Positive BM. Interactive weakly. 08/24: Patient continues to follow commands but appears to be confused at times. He lifts his right leg when asked to move the left leg. He can internally rotate his right arm but does not lift against gravity. Analgesia and Versed sedation required for vent synchrony and to remain calm during T- piece trials. 08/25: Patient tolerating T piece trials, remains agitated while stimulated. Follows commands. No acute distress. Objective Vital Signs / I&O: Vital Signs 08/24/18 11:00 08/24/18 12:00 08/24/18 12:19 Temperature 99.5 F Pulse Rate 70 74 Respiratory Rate 26 H 36 H 12 Blood Pressure 111/55 L 137/66 Pulse Oximetry 97 97 97 08/24/18 12:30 08/24/18 13:00 08/24/18 14:00 Temperature Pulse Rate 79 88 Respiratory Rate 30 H 26 H Blood Pressure 172/88 H 165/78 H Pulse Oximetry 96 98 98 08/24/18 15:00 08/24/18 16:00 08/24/18 17:00 Temperature 99.5 F Pulse Rate 77 70 77 Respiratory Rate 36 H 22 26 H Blood Pressure 98/51 L 121/58 L 122/60 Pulse Oximetry 97 98 97 08/24/18 17:39 08/24/18 18:00 08/24/18 18:15 Temperature Pulse Rate 75 80 76 Respiratory Rate 14 26 H Blood Pressure 155/83 H Pulse Oximetry 98 98 08/24/18 18:30 08/24/18 18:45 08/24/18 19:00 Temperature Pulse Rate 72 70 88 Respiratory Rate 14 Blood Pressure 157/74 H Pulse Oximetry 96 96 97 08/24/18 19:15 08/24/18 19:30 08/24/18 19:45 Temperature Pulse Rate 72 70 68 Respiratory Rate 107 H 118 H Blood Pressure Pulse Oximetry 96 97 97 08/24/18 20:00 08/24/18 20:15 08/24/18 20:30 Temperature 97.7 F Pulse Rate 67 67 67 Respiratory Rate 21 25 H Blood Pressure 117/59 L Pulse Oximetry 93 L 97 98 08/24/18 20:33 08/24/18 20:39 08/24/18 20:45 Temperature Pulse Rate 72 84 Respiratory Rate 25 H 22 Blood Pressure Pulse Oximetry 98 96 96 08/24/18 21:00 08/24/18 21:15 08/24/18 21:30 Temperature Pulse Rate 78 75 69 Respiratory Rate 23 21 15 Blood Pressure 180/97 H Pulse Oximetry 98 98 95 08/24/18 21:45 08/24/18 22:00 08/24/18 22:15 Temperature Pulse Rate 66 65 65 Respiratory Rate 17 17 Blood Pressure 106/55 L Pulse Oximetry 95 96 96 08/24/18 22:30 08/24/18 22:45 08/24/18 23:00 Temperature Pulse Rate 64 64 62 Respiratory Rate Blood Pressure 104/56 L Pulse Oximetry 96 96 96 08/24/18 23:15 08/24/18 23:30 08/24/18 23:45 Temperature Pulse Rate 66 63 62 Respiratory Rate Blood Pressure Pulse Oximetry 94 L 92 L 92 L 08/25/18 00:00 08/25/18 00:13 08/25/18 00:15 Temperature 98.6 F Pulse Rate 62 63 64 Respiratory Rate 13 15 Blood Pressure 109/57 L Pulse Oximetry 93 L 95 97 08/25/18 00:30 08/25/18 00:45 08/25/18 01:00 Temperature Pulse Rate 77 85 70 Respiratory Rate 17 17 15 Blood Pressure 150/76 H Pulse Oximetry 98 93 L 95 08/25/18 01:15 08/25/18 01:30 08/25/18 01:45 Temperature Pulse Rate 68 67 66 Respiratory Rate 11 L Blood Pressure Pulse Oximetry 94 L 95 96 08/25/18 02:00 08/25/18 02:15 08/25/18 02:30 Temperature Pulse Rate 65 64 64 Respiratory Rate Blood Pressure 121/57 L Pulse Oximetry 97 97 97 08/25/18 02:45 08/25/18 03:00 08/25/18 03:15 Temperature Pulse Rate 64 63 62 Respiratory Rate Blood Pressure 149/79 H Pulse Oximetry 97 98 97 08/25/18 03:21 08/25/18 03:30 08/25/18 03:45 Temperature Pulse Rate 66 63 62 Respiratory Rate 14 10 L Blood Pressure Pulse Oximetry 97 97 08/25/18 03:55 08/25/18 04:00 08/25/18 04:15 Temperature 97.6 F Pulse Rate 62 64 Respiratory Rate 11 L 9 L Blood Pressure 125/66 Pulse Oximetry 97 97 98 08/25/18 04:30 08/25/18 04:45 08/25/18 05:00 Temperature Pulse Rate 63 61 61 Respiratory Rate 9 L Blood Pressure 123/64 Pulse Oximetry 98 97 97 08/25/18 05:15 08/25/18 05:30 08/25/18 05:45 Temperature Pulse Rate 61 61 60 Respiratory Rate Blood Pressure Pulse Oximetry 97 97 100 01/07/19 06:00 08/25/18 06:15 08/25/18 06:30 Temperature Pulse Rate 60 59 L 59 L Respiratory Rate 9 L 129 H 129 H Blood Pressure 100/53 L Pulse Oximetry 96 96 97 08/25/18 08:26 Temperature Pulse Rate 61 Respiratory Rate 17 Blood Pressure Pulse Oximetry 100 Intake & Output 08/24/18 08/25/18 08/25/18 18:59 06:59 18:59 Intake Total 2116.2 / 2116.2 274 / 274 700 / 700 Output Total 1900 / 190 2475 / 2475 Balance 216.2 / 216.2 -2201 / -2201 700 / 700 Weight 87.4 kg Intake: IV 1111.2 / 1111.2 250 / 250 700 / 700 Precedex Inj 1,000 MCG In NS 250 / 250 250 / 250 250 / 250 Inj 240 ML @ 0.2 MCG/KG/HR 5.18 mls/hr IV.CONT TITRATE PRN Rx# :[id number] Versed Inj 100 mg In 100 ml @ 2 100 / 100 MG/HR 2 mls/hr IV.CONT TITRATE PRN Rx#:[id number] MVI-12 Inj 10 ML Thiamine Inj 511.2 / 511.2 100 MG Folvite Inj 1 MG In D5W- 1/2 NS Inj 500 ML @ 127.8 mls/ hr IV.SIG DAILY SATYA Rx#: [id number] KCl 20 mEq Premix Inj 20 meq In 200 / 200 100 ml @ 50 mls/hr IV.SIG Q2H PRN Rx#:[id number] fentaNYL 10 mcg/mL Premix Drip 250 / 250 250 / 250 2,500 mcg In 250 ml @ 50 MCG/HR 5 mls/hr IV.SIG TITRATE PRN Rx #:[id number] Tube Feeding 505 / 505 24 / 24 Tube Irrigant 300 / 300 Water Bolus Amount 200 / 200 Output: Urine Amount (Catheter) 1899 2475 / 2475 Indwelling Urethral Catheter 1899 2475 / 2475 Other: Date of Last Bowel Movement 08/24/18 08/25/18 # Bowel Movements 2 Result Diagrams: 08/24/18 03:41 08/25/18 04:31 Objective Remarks: GEN: Well-appearing, no acute distress HEENT: Mucosa moist and pink NECK: Tracheostomy present, clean/ dry/ intact CARDIO: Regular rate and rhythm PULM: Minimally coarse breath sounds at bases bilaterally, tolerating T piece without difficulty ABD/GI: PEG present, clean/ dry/ intact, non-tender in all quadrants EXT/MSK: No peripheral edema SKIN: Warm and well-perfused, no rashes or lesions NEURO: RASS 0, follows commands with all 4 extremities PSYCH: Calm, no current agitation Assessment and Plan - Assessment and Plan Plan: 58yM with C6 fracture, encephalopathy, vent-dependent respiratory failure Neuro/Psych: Acute toxic metabolic encephalopathy Involuntary movements -EEG 08/09- for epileptiform activity Anterior C6 fracture -[place] J collar times 6 weeks EtOH abuse/withdrawal Currently requiring fentanyl/ versed/ precedex drips for persistent agitation Also on librium, seroquel, depakene, oxycodone via PEG-- will increase these meds in order to decrease drips MRI C-spine nondisplaced C6 fracture, continue [place] J collar for 6 weeks per neurosurgery, moving all extremities spontaneously Discontinued lacosamide 100 mg IV twice daily secondary to rash-- allergies updated Continue vitamin supplementation Neuropsychiatry recommendations appreciated Cardiovascular: Hypertensive emergency Dyslipidemia Continues to have profound hypertension despite multiple meds via IV and PEG, increase lisinopril. Already on max doses of Coreg, hydralazine, amlodipine. If he continues to be hypertensive, will increase isosorbide tomorrow. Abdominal US on 08/14 showed mild hydronephrosis but no other obvious renal cause of HTN Start statin Continue ASA and lasix Pulmonary: Acute hypoxic hypercapnic respiratory failure Status post percutaneous tracheostomy 08/[address] Conn T-piece trials, allow to stay on T piece as long as he tolerates and rest on CPAP PRN Vent bundle Albuterol/ipratropium nebs PRN Bilateral cephalic DVTs, no PE on CTA chest Pulm recs appreciated GI/liver: Elevated transaminases downward trending Hypoalbuminemia with moderate protein calorie malnutrition Status post PEG by Dr. Jensen 08/20 Ileus Change Nepro to Jevity 1.5 as XIMENA is now resolved, advance to goal Famotidine 20 mg daily for GI prophylaxis Bowel regimen, scheduled Reglan Negative hepatitis panel FEN/renal/: Acute kidney injury- resolved Hypokalemia Urinary retention with mild bilateral hydronephrosis IV hydration, strict intake output, monitor and replete electrolytes, follow BUN /creatinine. Attempt trial of void with scheduled straight cath PRN ID: All cultures negative thus far with the exception of 1 blood culture on 08/17 growing staph epidermidis (contaminant); continue to observe off antibiotics Endocrine: SSI as needed Heme: Normocytic anemia Thrombocytosis Documentation of prior possible right subclavian occlusion -negative Doppler Bilateral cephalic occlusive and nonocclusive superficial venous thrombosis Change SQH to therapeutic lovenox given bilateral cephalic DVTs MSK: Diffuse idiopathic skeletal hyperostosis drug rash possible DR ESS Resolving PT/OT Prophylaxis: -PPI -SCDs, therapeutic Lovenox Overall impression: Continue T piece trials; once patient has tolerated for >24 hrs, can move to chronic vent unit. Dispo planning. Level 2 follow up To help prompt me to consider important information that might be impacting today's encounter and assessment, information from prior notes written by myself or my colleagues may have been "brought forward" into today's note. My signature on this note, however, is an attestation that I personally performed the exam, history, and/or decision-making noted today, and, unless otherwise indicated, the interactions with patient, family, and staff as well as the review of records all occurred today. I also attest that the listed assessment and stated plan reflect my best clinical judgment today based on the combination of historical information, prior notes, and today's exam/ interactions. Code Status: Full
[2018-08-25] MEDS: Multivitamin Inj 10 ML, Thiamine Inj 100 MG, Folic Acid Inj 1 MG in Dextrose 5%/NaCl 0.... IV.SIG SCH (11:01)
[2018-08-25] MEDS ORDERED: QUEtiapine 25 MG Tablet PO SCH (11:31)
--- NOTE | 2018-08-25 11:42 | P.PNNPSY ---
- Behavior Intact: Impulsive/agitated - Cognitive Moderate: Cognitive, Attention/concentration, Confused/orientation, Insight/ awareness, Judgment/problem solving, Memory - Progress Notes/Response to Treatment Contents of Sessions: Adjustment, Level of consciousness Time with Patient: 30 minutes Premorbid Psychological Status: Premorbid Cognitive, Emotional and Behavioral Status: Tenuous. The patient has high school years of education and a sporadic work history prior to this injury. The patient has possible prior psychiatric difficulties, as described above. Substance abuse history includes ETOH. Behavioral Reactions of Patient and Family/Support System: Tenuous. The patients family is experiencing ongoing issues of adjustment given the nature of the injury, and this aspect of recovery will require ongoing monitoring. Emotional/Behavioral Status of Patient and Family/Support System: Tenuous. Pertinent issues, if appropriate to this patients clinical care, are described in detail above. Maximizing Acute Care Outcome: The patient is presently managed on Seroquel 50 BID and VPA 250 BID and Librium and Versed. Consider increasing Seroquel to 75/75/100 and VPA to 250 TID, with a PRN Haldol, with goal of bringing agitation/restlessness down to below a total score of 21 on all subscores of the ABS, and so we can d/c benzo's which may be contributing to his agitation/confusion. Presently he is at 24.5 on the disinhibition subscore. He is generally past BEREKET at this point, successfully managed throughout his critical care treatment thus far. Promote as normal as possible sleep wake cycle, and 100 HS of Seroquel may assist in this endeavor. At this point in the recovery process, the patient does not have cognitive capacity as the patient is unable to understand a situation and its likely consequences, nor is the patient able to manipulate information rationally. Cognitive capacity will be assessed throughout the recovery process. Anticipated Problems: Ongoing areas of concern will include behavioral impulsivity, lack of insight and judgment, which is expected to improve with time and treatment. Treatment Plan: This clinician will continue to follow with you throughout the course of this patients critical care treatment, and I will be available to meet with the patients family/support system to facilitate their understanding and the ongoing care of their family member. The goals of neuropsychological intervention shall be both educational and supportive to the family/support system as is deemed clinically appropriate. 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 Progress Note Narrative: Day 16. The patient's neurobehavioral issues are managed. Recent ABS is 16 ( 17.5,14,14). He is managed on VPA 250 TID and Seroquel 100 TID. He is confused but cooperative. I will follow. - Diagnosis (1) Delirium due to general medical condition Status: Acute
[2018-08-25] MEDS ORDERED: Lisinopril 10 MG Tablet PO ONE (12:15)
[2018-08-25] MEDS: QUEtiapine 100 MG Tablet PO SCH ×2 (13:34→18:33)
[2018-08-25] MEDS: Beneprotein Powder Packet G-TUBE SCH ×2 (14:28→18:33)
--- NOTE | 2018-08-25 15:41 | P.DIET ---
Nutritional Evaluation Type of nutrition evaluation: follow-up Nutrition consult regarding: Tube Feeding Objective - Diagnosis AMS, C6 Vertebral fx, alcohol abuse - Objective % IBW: 111 (IBW = 178#) Body Weight Used for Calculations: Actual (87.4) Energy Needs - Lower Range (kCal/kg): 25 Energy Needs - Upper Range (kCal/kg): 30 Lower Limit kCal/kg (kCals): 2,185 Upper Limit kCal/kg (kCals): 2,622 Lower Limit Protein Factor (Grams per Kg): 1.0 Upper Limit Protein Factor (Grams per Kg): 1.5 Lower Protein Needs (Protein): 87 Upper Protein Needs (Protein): 131 Dietitian Reviewed in Medical Record: Curent medications, Intake & Output, Labs , Medical history, Tube feeding Diet Order: NPO Objective Comments: PMH includes: Alcohol Abuse, HTN Meds include: Coreg, Pepcid, IV Folic Acid, MV, Thiamine, Haldol, Seroquel, Ativan, Lactulose Assessment Assessment: Pt remains at high nutrition risk 2' to his need for TFing. TF is currently on hold. Recommend change TF to Jevity 1.5 @ 60 mls/hr to provide 2160 kcals, 92 gms of protein and 1094 mls of free water. Beneprotein has been ordered; 1 pack tid which will provide an additional 18 gms protein and 75 kcals. Labs, wts and clinical course reviewed. Recommendations: Change TF to Jevity 1.5 @ 60 mls/hr goal Beneprotein 1 pack tid as ordered Dietitian to Monitor: Lab values, Intake & Output, Tube feeding tolerance, Weight change, Medical course
[2018-08-25] MEDS: Midazolam 100 MG/100 ML Inj 100 MG/100 ML BAG IV.CONT PRN (18:32)
--- NOTE | 2018-08-25 19:26 | P.PN ---
Subjective Interval history: He is on a T bar and is awake . FIo2 at 35 %. Trach site is clear. No fever Physical Exam Vital signs: Vital Signs 08/24/18 19:30 08/24/18 19:45 08/24/18 20:00 Temperature Pulse Rate 70 68 67 Respiratory Rate 118 H Blood Pressure 117/59 L Pulse Oximetry 97 97 93 L 08/24/18 20:15 08/24/18 20:30 08/24/18 20:33 Temperature 97.7 F Pulse Rate 67 67 Respiratory Rate 21 25 H Blood Pressure Pulse Oximetry 97 98 98 08/24/18 20:39 08/24/18 20:45 08/24/18 21:00 Temperature Pulse Rate 72 84 78 Respiratory Rate 25 H 22 23 Blood Pressure 180/97 H Pulse Oximetry 96 96 98 08/24/18 21:15 08/24/18 21:30 08/24/18 21:45 Temperature Pulse Rate 75 69 66 Respiratory Rate 21 15 17 Blood Pressure Pulse Oximetry 98 95 95 08/24/18 22:00 08/24/18 22:15 08/24/18 22:30 Temperature Pulse Rate 65 65 64 Respiratory Rate 17 Blood Pressure 106/55 L Pulse Oximetry 96 96 96 08/24/18 22:45 08/24/18 23:00 08/24/18 23:15 Temperature Pulse Rate 64 62 66 Respiratory Rate Blood Pressure 104/56 L Pulse Oximetry 96 96 94 L 08/24/18 23:30 08/24/18 23:45 08/25/18 00:00 Temperature Pulse Rate 63 62 62 Respiratory Rate Blood Pressure 109/57 L Pulse Oximetry 92 L 92 L 93 L 08/25/18 00:13 08/25/18 00:15 08/25/18 00:30 Temperature 98.6 F Pulse Rate 63 64 77 Respiratory Rate 13 15 17 Blood Pressure Pulse Oximetry 95 97 98 08/25/18 00:45 08/25/18 01:00 08/25/18 01:15 Temperature Pulse Rate 85 70 68 Respiratory Rate 17 15 11 L Blood Pressure 150/76 H Pulse Oximetry 93 L 95 94 L 08/25/18 01:30 08/25/18 01:45 08/25/18 02:00 Temperature Pulse Rate 67 66 65 Respiratory Rate Blood Pressure 121/57 L Pulse Oximetry 95 96 97 08/25/18 02:15 08/25/18 02:30 08/25/18 02:45 Temperature Pulse Rate 64 64 64 Respiratory Rate Blood Pressure Pulse Oximetry 97 97 97 08/25/18 03:00 08/25/18 03:15 08/25/18 03:21 Temperature Pulse Rate 63 62 66 Respiratory Rate 14 Blood Pressure 149/79 H Pulse Oximetry 98 97 08/25/18 03:30 08/25/18 03:45 08/25/18 03:55 Temperature Pulse Rate 63 62 Respiratory Rate 10 L 11 L Blood Pressure Pulse Oximetry 97 97 97 08/25/18 04:00 08/25/18 04:15 08/25/18 04:30 Temperature 97.6 F Pulse Rate 62 64 63 Respiratory Rate 9 L Blood Pressure 125/66 Pulse Oximetry 97 98 98 08/25/18 04:45 08/25/18 05:00 08/25/18 05:15 Temperature Pulse Rate 61 61 61 Respiratory Rate 9 L Blood Pressure 123/64 Pulse Oximetry 97 97 97 08/25/18 05:30 08/25/18 05:45 08/25/18 06:00 Temperature Pulse Rate 61 60 60 Respiratory Rate 9 L Blood Pressure 100/53 L Pulse Oximetry 97 100 96 08/25/18 06:15 08/25/18 06:30 08/25/18 07:00 Temperature Pulse Rate 59 L 59 L 59 L Respiratory Rate 129 H 129 H 8 L Blood Pressure 106/60 Pulse Oximetry 96 97 98 08/25/18 08:00 08/25/18 08:26 08/25/18 09:00 Temperature 98.4 F Pulse Rate 59 L 61 65 Respiratory Rate 8 L 17 14 Blood Pressure 111/60 134/72 Pulse Oximetry 98 100 95 08/25/18 10:00 08/25/18 11:00 08/25/18 11:38 Temperature Pulse Rate 92 H 78 81 Respiratory Rate 20 71 H 17 Blood Pressure 209/91 H 183/81 H Pulse Oximetry 95 96 08/25/18 12:00 08/25/18 13:00 08/25/18 13:41 Temperature 98.6 F Pulse Rate 78 80 85 Respiratory Rate 20 21 22 Blood Pressure 198/83 H 216/95 H 147/63 H Pulse Oximetry 99 98 97 08/25/18 14:00 08/25/18 15:00 08/25/18 16:00 Temperature Pulse Rate 82 79 76 Respiratory Rate 22 17 15 Blood Pressure 137/63 128/58 L 140/64 Pulse Oximetry 96 98 98 Intake & Output 08/25/18 08/25/18 08/26/18 06:59 18:59 06:59 Intake Total 274 / 274 1000 / 1000 Output Total 2475 / 2475 Balance -2201 / -2201 1000 / 1000 Weight 87.4 kg Intake: IV 250 / 250 1000 / 1000 Precedex Inj 1,000 MCG In NS 250 / 250 250 / 250 Inj 240 ML @ 0.2 MCG/KG/HR 5.18 mls/hr IV.CONT TITRATE PRN Rx# :[id number] Versed Inj 100 mg In 100 ml @ 2 100 / 100 MG/HR 2 mls/hr IV.CONT TITRATE PRN Rx#:[id number] KCl 20 mEq Premix Inj 20 meq In 400 / 400 100 ml @ 50 mls/hr IV.SIG Q2H PRN Rx#:[id number] fentaNYL 10 mcg/mL Premix Drip 250 / 250 2,500 mcg In 250 ml @ 50 MCG/HR 5 mls/hr IV.SIG TITRATE PRN Rx #:[id number] Tube Feeding Output: Urine Amount (Catheter) 2474 / 2475 Indwelling Urethral Catheter 2474 / 247 Other: Date of Last Bowel Movement 08/25/18 08/25/18 Narrative: GENERAL: Mid aged W/M on a T Collar with trach in place SKIN: Warm and dry. HEAD: Atraumatic. Normocephalic. EYES: Pupils equal and round. No scleral icterus. Mild injection no drainage. ENT: No nasal bleeding or discharge. Mucous membranes pink and moist. NECK: Trachea midline. No JVD. C Collar noted. CARDIOVASCULAR: Regular rate and rhythm. RESPIRATORY: No accessory muscle use. Few basal crackles and Expiratory wheeze. Breath sounds equal bilaterally. GASTROINTESTINAL: Abdomen soft, non-tender, nondistended. Hepatic and splenic margins not palpable. MUSCULOSKELETAL: Extremities without clubbing, cyanosis, or edema. No obvious deformities. NEUROLOGICAL: Lethargic. Moves legs but weak. - Urinary Catheter Management Indwelling Urethral Catheter Cath placed during this visit: yes, but has since been removed by the nurse Reason for continuing: Acute urinary retention Insertion date: 08/17/18 Insertion time: 18:30 Removal date: 08/11/18 Removal time: 09:50 Condom Cath placed during this visit: no Reason for continuing: Not indwelling catheter Straight Cath placed during this visit: yes Reason for continuing: Acute urinary retention Insertion date: 08/17/18 Insertion time: 10:30 Results - Labs CBC & Chem 7: 08/24/18 03:41 08/25/18 04:31 Laboratory Results - last 24 hr 08/25/18 04:31 Sodium 141 Potassium 3.1 L Chloride 105 Carbon Dioxide 29.9 Anion Gap 6 BUN 14 Creatinine 0.82 Estimated GFR Greater than 89 Random Glucose 102 Calcium 9.1 Assessment and Plan - Assessment (1) Respiratory failure requiring intubation Code(s): J96.90 - Respiratory failure, unspecified, unspecified whether with hypoxia or hypercapnia Status: Acute (2) Pneumonia Code(s): J18.9 - Pneumonia, unspecified organism Status: Acute (3) Seizure Code(s): R56.9 - Unspecified convulsions Status: Acute (4) Hypertensive urgency Code(s): I16.0 - Hypertensive urgency Status: Acute (5) Alcohol intoxication Code(s): F10.929 - Alcohol use, unspecified with intoxication, unspecified Status: Acute (6) Altered mental status Code(s): R41.82 - Altered mental status, unspecified Status: Acute (7) Delirium due to general medical condition Code(s): F05 - Delirium due to known physiological condition Status: Acute - Plan 1. Cont T bar as tolerated FIO2 30 % 2. Reduce sedation. 3. Trach lavage and Suction.PRN 4. Continue Duoneb nebs Q6H 5. CBC, ,BMP in am 6. Tube feeds at 60 CC 7. Seizure precautions. 8. Antibiotics as ordered. 9. Transfer to [facility]
[2018-08-25] MEDS: Lisinopril 20 MG Tablet PO SCH (21:53)
[2018-08-25] MEDS: Enoxaparin Inj 100 MG/ML Syringe SQ SCH (21:53)
[2018-08-26 04:55] LABS: Baso # (Auto) 0.1 th/mm3 (0.0-0.2); Baso % (Auto) 0.9 % (0.0-2.0); Eos # (Auto) 0.7 th/mm3 (0.0-0.4); Eos % (Auto) 7.4 % (0.0-4.0); Hematocrit 35.2 % (39.0-51.0); Lymph # (Auto) 1.5 th/mm3 (1.0-4.8); Lymph % (Auto) 15.9 % (9.0-44.0); Mean Corpuscular HGB Conc 34.1 % (32.0-36.0); Mean Corpuscular Hemoglobin 31.7 pg (27.0-34.0); Mean Corpuscular Volume 92.9 fL (80.0-100.0); Mean Platelet Volume 7.3 fL (7.0-11.0); Mono # (Auto) 0.9 th/mm3 (0.0-0.9); Mono % (Auto) 9.5 % (0.0-8.0); Neut # (Auto) 6.2 th/mm3 (1.8-7.7); Neut % (Auto) 66.3 % (16.0-70.0); Platelet Count 552 th/mm3 (150-450); Red Blood Count 3.78 mil/mm3 (4.50-5.90); Red Cell Distribution Width 14.2 % (11.6-17.2); White Blood Count 9.4 th/mm3 (4.0-11.0)
[2018-08-26 05:14] LABS: Alanine Aminotransferase 22 U/L (12-78); Albumin 2.5 g/dL (3.4-5.0); Anion Gap 6 meq/L (5-15); Aspartate Aminotransferase 17 U/L (15-37); Blood Urea Nitrogen 13 mg/dL (7-18); Calcium 9.4 mg/dL (8.5-10.1); Carbon Dioxide 31.2 meq/L (21.0-32.0); Chloride 106 meq/L (98-107); Glomerular Filtration Rate 68 mL/min (>89); Glucose,Random 97 mg/dL (74-106); Potassium 3.7 meq/L (3.5-5.1); Sodium 143 meq/L (136-145)
[2018-08-26 05:17] LABS: Alkaline Phosphatase 127 U/L (45-117); Total Protein 7.3 g/dL (6.4-8.2)
[2018-08-26] MEDS: Oral Hygiene Kit OROPHARYNG SCH ×3 (06:25→16:00)
[2018-08-26] MEDS: fentaNYL 10 mcg/mL Premix Drip 2,500 MCG/250 ML BAG IV.SIG PRN (06:29)
--- NOTE | 2018-08-26 08:15 | P.PNNPSY ---
- Behavior Intact: Impulsive/agitated - Cognitive Moderate: Cognitive, Attention/concentration, Confused/orientation, Insight/ awareness, Judgment/problem solving, Memory - Progress Notes/Response to Treatment Contents of Sessions: Adjustment, Level of consciousness Time with Patient: 30 minutes Premorbid Psychological Status: Premorbid Cognitive, Emotional and Behavioral Status: Tenuous. The patient has high school years of education and a sporadic work history prior to this injury. The patient has possible prior psychiatric difficulties, as described above. Substance abuse history includes ETOH. Behavioral Reactions of Patient and Family/Support System: Tenuous. The patients family is experiencing ongoing issues of adjustment given the nature of the injury, and this aspect of recovery will require ongoing monitoring. Emotional/Behavioral Status of Patient and Family/Support System: Tenuous. Pertinent issues, if appropriate to this patients clinical care, are described in detail above. Maximizing Acute Care Outcome: The patient is presently managed on Seroquel 50 BID and VPA 250 BID and Librium and Versed. Consider increasing Seroquel to 75/75/100 and VPA to 250 TID, with a PRN Haldol, with goal of bringing agitation/restlessness down to below a total score of 21 on all subscores of the ABS, and so we can d/c benzo's which may be contributing to his agitation/confusion. Presently he is at 24.5 on the disinhibition subscore. He is generally past BEREKET at this point, successfully managed throughout his critical care treatment thus far. Promote as normal as possible sleep wake cycle, and 100 HS of Seroquel may assist in this endeavor. At this point in the recovery process, the patient does not have cognitive capacity as the patient is unable to understand a situation and its likely consequences, nor is the patient able to manipulate information rationally. Cognitive capacity will be assessed throughout the recovery process. Anticipated Problems: Ongoing areas of concern will include behavioral impulsivity, lack of insight and judgment, which is expected to improve with time and treatment. Treatment Plan: This clinician will continue to follow with you throughout the course of this patients critical care treatment, and I will be available to meet with the patients family/support system to facilitate their understanding and the ongoing care of their family member. The goals of neuropsychological intervention shall be both educational and supportive to the family/support system as is deemed clinically appropriate. 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 Progress Note Narrative: PTD 17. Critical care states that the patient becomes agitated when stimulated , and in fact he received a dose of Librium on 08/25 at 2154. He also has a PRN Haldol that has not been needed. However, nursing does not indicate that he is not terribly agitated, with last ABS scores of 15 (15.8,14,14), essentially the same as yesterday of 16T. He is managed on Seroquel 100 TID and VPA 250 TID. Benzo's can cause delirium in an ICU population, and suggest titration of one of the neurobehavioral medications instead. I will follow. - Diagnosis (1) Delirium due to general medical condition Status: Acute
[2018-08-26] MEDS: Chlorhexidine 0.12% Oral Kit 15 ML UDC OROPHARYNG SCH ×2 (09:24→20:51)
[2018-08-26] MEDS: amLODIPine 5 MG Tablet PO SCH (09:24)
[2018-08-26] MEDS: Carvedilol 12.5 MG Tablet PO SCH ×2 (09:25→21:11)
[2018-08-26] MEDS: Folic Acid 1 MG Tablet PO SCH (09:25)
[2018-08-26] MEDS: chlordiazePOXIDE 25 MG Capsule PO SCH ×3 (09:25→20:53)
[2018-08-26] MEDS: Lisinopril 20 MG Tablet PO SCH (09:25)
[2018-08-26] MEDS: QUEtiapine 100 MG Tablet PO SCH ×3 (09:25→18:46)
[2018-08-26] MEDS: Famotidine PF Inj 20 MG/2 ML Vial IV.PUSH SCH ×2 (09:26→20:54)
[2018-08-26] MEDS: Docusate Sodium Liq 100 MG/10 ML UDC G-TUBE SCH ×2 (09:27→20:52)
[2018-08-26] MEDS: Polyethylene Glycol 3350 17 GM Packet PO SCH (09:27)
[2018-08-26] MEDS: Enoxaparin Inj 100 MG/ML Syringe SQ SCH ×2 (09:27→11:03)
[2018-08-26] MEDS ORDERED: Acetaminophen 325 MG Tablet PO PRN (09:44)
--- NOTE | 2018-08-26 09:49 | P.PNCC ---
Subjective Subjective Remarks/Hospital Course: 08/09: 58-year-old male who was found down in his friend's garage this morning. He has a history of alcohol abuse. He recently sold his house and was staying at a friend's home. Reportedly he was due to fly later today. Patient was brought to the ER by EMS and was noted to have involuntary movements with jerking movements involving upper and lower extremities as well as his head. He received Ativan 3 mg IV and was loaded with Keppra. Initially stroke alert was called. Head CT was negative for any bleed however there was question of C6 fracture. Neurology and neurosurgery were consulted. Patient was loaded with IV Cerebyx and Vimpat by neurology. He had a [place] J collar placed after placing hard cervical collar by neurosurgery. When I evaluated the patient in the ER he was still having involuntary movements which appeared to be episodic with occasional twitchings on his face and nystagmus. This did not appear to be generalized tonic-clonic convulsions however appeared more like an extrapyramidal reaction. I ordered a stat EEG. Patient moving around too much to obtain MRI at this time. His urine tox screen was negative. He was positive for alcohol. Patient nonverbal. His involuntary movements get exaggerated on stimulation. He was reportedly completely normal yesterday. 08/10: Patient had an episode of emesis last night followed by labored breathing. He continued to have involuntary movements. He was intubated and placed on mechanical ventilation. Currently sedated with propofol, orally intubated on mechanical ventilation. Awaiting MRI brain and C-spine. EEG done yesterday did not show any seizure activity. 08/11: Sedated, orally intubated on mechanical ventilation. MRI brain unremarkable. MRI C-spine with hairline C6 fracture with no displacement. 08/12: Remains sedated, orally intubated on mechanical ventilation. Reintubated yesterday for significant hypoxia and respiratory distress with O2 sats dropping to the 70s despite nonrebreather facemask. CT pulmonary angiogram was negative for PE and showed bilateral infiltrates at the bases. 08/13: Remains sedated, orally intubated on mechanical ventilation. On propofol /fentanyl GTT. Starting tube feeds 08/14: T-max 99.4. Currently 98.3. Scheduled for IR for lumbar puncture today. Patient acute injury. Patient is on vancomycin, acyclovir and did receive IV contrast recently. Renal ultrasound ordered. Urine eosinophils, sodium and creatinine ordered. Arousable and does follow commands on the ventilator. Breakthrough agitation/involuntary systemic movements noted 08/15: Plan for lumbar puncture today. Will likely try sedation vacation overnight. See 4 mg of midazolam overnight due to agitation. Appears comfortable. Intermittently follows commands. 08/16: Lumbar puncture from yesterday accomplished. We will try sedation vacation again today and tried on dexmedetomidine drip. Rash is much improved. Discontinued lacosamide possible source of rash. Remains leukopenic and elevated eosinophils. 08/17: Low-grade fevers overnight. Blood cultures x2, sputum performed. Will start on piperacillin/tazobactam vancomycin. Extubated today. Tolerated about 2 hours but became hypoxic on 100% nonrebreather and tachypneic. Intubated with axial traction. Will need tracheostomy has failed extubation x2 08/18: T-max 100.1. Failed extubation requiring reintubation. Tracheostomy planned for 10 AM today. 08/19: Afebrile overnight. Chest x-ray following tracheostomy demonstrates tube in good position safely above the tory. Basilar infiltrates persist but clearing. On spontaneous breathing trial earlier today he had apneic episodes. With no sedation he becomes extremely agitated however. 08/20: Percutaneous gastrostomy tube plan for today. Very agitated. Remains on clevidipine drip. 08/21: Status post percutaneous gastrostomy tube 08/20. Some distention. Currently drainage. Will check KUB. Very agitated requiring midazolam drip. We will consult neuropsychology for assistance. 08/22: Low-grade fevers overnight. Remains on multiple sedatives. Adjusted increased valproic acid and quetiapine yesterday per neuropsychiatrist rec. On trickle feeds. 08/23: T-max 99.8. Currently afebrile. We will discontinue antibiotics today. Did not require held overnight. We will advance tube feeds to goal. Positive BM. Interactive weakly. 08/24: Patient continues to follow commands but appears to be confused at times. He lifts his right leg when asked to move the left leg. He can internally rotate his right arm but does not lift against gravity. Analgesia and Versed sedation required for vent synchrony and to remain calm during T- piece trials. 08/25: Patient tolerating T piece trials, remains agitated while stimulated. Follows commands. No acute distress. Subjective 08/26: Afebrile. Tolerating tube feeds times 24 hours. Remains on midazolam, fentanyl and dexmedetomidine drips. Positive BM. 700 cc residuals. Currently metoclopramide will add erythromycin base. KUB ordered. Positive diarrhea. Objective Vital Signs / I&O: Vital Signs 08/25/18 10:00 08/25/18 11:00 08/25/18 11:38 Temperature Pulse Rate 92 H 78 81 Respiratory Rate 20 20 17 Blood Pressure 209/91 H 183/81 H Pulse Oximetry 95 96 08/25/18 12:00 08/25/18 13:00 08/25/18 13:41 Temperature 98.6 F Pulse Rate 78 80 85 Respiratory Rate 20 21 22 Blood Pressure 198/83 H 216/95 H 147/63 H Pulse Oximetry 99 98 97 08/25/18 14:00 08/25/18 15:00 08/25/18 16:00 Temperature 98.4 F Pulse Rate 82 79 76 Respiratory Rate 22 17 15 Blood Pressure 137/63 128/58 L 140/64 Pulse Oximetry 96 98 98 08/25/18 17:00 08/25/18 18:00 08/25/18 19:00 Temperature Pulse Rate 76 75 73 Respiratory Rate 16 18 15 Blood Pressure 148/67 H 150/66 H 142/63 H Pulse Oximetry 98 98 98 08/25/18 19:45 08/25/18 19:59 08/25/18 20:00 Temperature Pulse Rate 72 75 Respiratory Rate 28 H 35 H Blood Pressure 130/70 Pulse Oximetry 98 97 97 08/25/18 20:15 08/25/18 20:30 08/25/18 20:45 Temperature Pulse Rate 75 77 78 Respiratory Rate 24 31 H 26 H Blood Pressure Pulse Oximetry 96 97 97 08/25/18 21:00 08/25/18 21:15 08/25/18 21:30 Temperature Pulse Rate 75 79 77 Respiratory Rate 26 H 29 H 30 H Blood Pressure 174/80 H Pulse Oximetry 98 99 98 08/25/18 21:45 08/25/18 22:00 08/25/18 22:15 Temperature Pulse Rate 81 82 78 Respiratory Rate 28 H 24 29 H Blood Pressure 201/93 H Pulse Oximetry 99 99 99 08/25/18 22:30 08/25/18 22:45 08/25/18 23:00 Temperature 98.5 F Pulse Rate 82 78 89 Respiratory Rate 28 H 22 25 H Blood Pressure 200/78 H Pulse Oximetry 100 99 99 08/25/18 23:15 08/25/18 23:30 08/25/18 23:35 Temperature Pulse Rate 84 78 77 Respiratory Rate 27 H 24 28 H Blood Pressure 136/58 L Pulse Oximetry 97 97 97 08/25/18 23:45 08/26/18 00:00 08/26/18 00:05 Temperature Pulse Rate 75 73 72 Respiratory Rate 30 H 20 21 Blood Pressure 121/58 L Pulse Oximetry 97 98 97 08/26/18 00:15 08/26/18 00:30 08/26/18 00:35 Temperature Pulse Rate 71 70 70 Respiratory Rate 32 H 21 20 Blood Pressure 122/58 L Pulse Oximetry 98 98 98 08/26/18 00:45 08/26/18 01:00 08/26/18 01:05 Temperature Pulse Rate 70 70 70 Respiratory Rate 19 20 27 H Blood Pressure 133/65 Pulse Oximetry 98 98 98 08/26/18 01:15 08/26/18 01:30 08/26/18 01:35 Temperature Pulse Rate 70 72 71 Respiratory Rate 25 H 20 23 Blood Pressure 146/69 H Pulse Oximetry 98 99 99 08/26/18 01:45 08/26/18 02:00 08/26/18 02:05 Temperature Pulse Rate 70 70 72 Respiratory Rate 23 26 H 26 H Blood Pressure 163/77 H Pulse Oximetry 99 99 99 08/26/18 02:15 08/26/18 02:30 08/26/18 02:35 Temperature Pulse Rate 74 73 80 Respiratory Rate 20 17 16 Blood Pressure 217/98 H Pulse Oximetry 99 99 99 08/26/18 02:41 08/26/18 02:45 08/26/18 03:00 Temperature Pulse Rate 86 85 78 Respiratory Rate 30 H 21 20 Blood Pressure 141/67 H Pulse Oximetry 99 99 99 08/26/18 03:05 08/26/18 03:15 08/26/18 03:30 Temperature Pulse Rate 77 85 82 Respiratory Rate 24 31 H 28 H Blood Pressure 156/74 H Pulse Oximetry 99 99 100 08/26/18 03:35 08/26/18 03:45 08/26/18 03:50 Temperature Pulse Rate 80 81 Respiratory Rate 19 23 Blood Pressure 138/62 Pulse Oximetry 99 99 97 08/26/18 04:00 08/26/18 04:05 08/26/18 04:15 Temperature Pulse Rate 84 82 79 Respiratory Rate 38 H 37 H 30 H Blood Pressure 142/72 H Pulse Oximetry 97 97 97 08/26/18 04:30 08/26/18 04:35 08/26/18 04:45 Temperature 98.3 F Pulse Rate 75 74 72 Respiratory Rate 31 H 32 H 23 Blood Pressure 109/55 L Pulse Oximetry 96 95 96 08/26/18 05:00 08/26/18 05:05 08/26/18 05:15 Temperature Pulse Rate 87 86 77 Respiratory Rate 28 H 34 H 25 H Blood Pressure 154/85 H Pulse Oximetry 98 97 98 08/26/18 05:30 08/26/18 05:35 08/26/18 05:45 Temperature Pulse Rate 71 75 73 Respiratory Rate 25 H 27 H 25 H Blood Pressure 142/74 H Pulse Oximetry 97 98 98 08/26/18 06:00 08/26/18 06:05 08/26/18 06:15 Temperature Pulse Rate 69 68 66 Respiratory Rate 27 H 25 H 23 Blood Pressure 99/50 L Pulse Oximetry 97 97 97 08/26/18 06:30 08/26/18 06:35 08/26/18 07:00 Temperature Pulse Rate 66 65 66 Respiratory Rate 26 H 25 H 17 Blood Pressure 92/55 L 102/55 L Pulse Oximetry 97 97 97 08/26/18 07:58 08/26/18 08:00 Temperature Pulse Rate 64 Respiratory Rate 18 Blood Pressure 101/54 L Pulse Oximetry 96 97 Intake & Output 08/25/18 08/26/18 08/26/18 18:59 06:59 18:59 Intake Total 1631.2 / 1631.2 512 / 512 Output Total 3200 / 3200 1875 / 1875 Balance -1568.8 / -1568.8 -1363 / -1363 Weight 82 kg Intake: IV 1511.2 / 1511.2 485 / 485 Precedex Inj 1,000 MCG In NS 250 / 250 235 / 235 Inj 240 ML @ 0.2 MCG/KG/HR 5.18 mls/hr IV.CONT TITRATE PRN Rx# :[id number] Versed Inj 100 mg In 100 ml @ 2 100 / 100 MG/HR 2 mls/hr IV.CONT TITRATE PRN Rx#:[id number] MVI-12 Inj 10 ML Thiamine Inj 511.2 / 511.2 100 MG Folvite Inj 1 MG In D5W- 1/2 NS Inj 500 ML @ 127.8 mls/ hr IV.SIG DAILY SATYA Rx#: [id number] KCl 20 mEq Premix Inj 20 meq In 400 / 400 100 ml @ 50 mls/hr IV.SIG Q2H PRN Rx#:[id number] fentaNYL 10 mcg/mL Premix Drip 250 / 250 250 / 250 2,500 mcg In 250 ml @ 50 MCG/HR 5 mls/hr IV.SIG TITRATE PRN Rx #:[id number] Tube Feeding Other 120 / 120 Output: Urine Amount (Catheter) 3200 / 3200 1875 / 1875 Indwelling Urethral Catheter 3200 / 3200 1875 / 1875 Other: Date of Last Bowel Movement 08/25/18 08/25/18 Result Diagrams: 08/26/18 04:01 08/26/18 04:01 Other Results: Microbiology 08/18/18 11:45 Blood - Peripheral Aerobic Blood Culture - Final No growth in 5 days 08/18/18 11:45 Blood - Peripheral Anaerobic Blood Culture - Final No growth in 5 days 08/18/18 11:52 Blood - Peripheral Aerobic Blood Culture - Final No growth in 5 days 08/18/18 11:52 Blood - Peripheral Anaerobic Blood Culture - Final No growth in 5 days 08/17/18 03:20 Blood - Peripheral Aerobic Blood Culture - Final No growth in 5 days 08/17/18 03:20 Blood - Peripheral Anaerobic Blood Culture - Final No growth in 5 days 08/17/18 01:15 Blood - Peripheral Aerobic Blood Culture - Final Staphylococcus epidermidis 08/17/18 01:15 Blood - Peripheral Anaerobic Blood Culture - Final No growth in 5 days 08/17/18 00:30 Sputum - Endotracheal Gram Stain - Final 08/17/18 00:30 Sputum - Endotracheal Sputum Culture - Final No growth in 48 hours 08/11/18 14:29 Blood - Peripheral Aerobic Blood Culture - Final No growth in 5 days 08/11/18 14:29 Blood - Peripheral Anaerobic Blood Culture - Final No growth in 5 days 08/11/18 14:24 Blood - Peripheral Aerobic Blood Culture - Final No growth in 5 days 08/11/18 14:24 Blood - Peripheral Anaerobic Blood Culture - Final No growth in 5 days 08/11/18 15:00 Sputum - Endotracheal Gram Stain - Final 08/11/18 15:00 Sputum - Endotracheal Sputum Culture - Final Heavy growth normal respiratory sherman 08/09/18 11:00 Catheterized Urine Urine Culture - Final No growth in 48 hours Imaging: Head CT 08/09/18 09:20 CONCLUSION: 1. No acute intracranial abnormality is seen. 2. Mild widening of the cortical sulci which could suggest some atrophy. Report was called by [Dr. Dutton to at 9:49 AM. ] Chest X-Ray 08/09/18 09:21 CONCLUSION: No acute cardiopulmonary process. Cervical Spine CT 08/09/18 09:23 CONCLUSION: 1. Fracturing through anterior flowing spurs at the anterior C6 level with the fracture extending into the anterior inferior left lateral aspect of the C6 vertebral body. Empty displacement is not seen. No other possible fractures are seen. 2. 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 3. Degenerative change. Head CTA 08/09/18 09:28 CONCLUSION: Negative CTA. Report was called by [Dr. Dutton to Dr. Faustin. A message was left on the voicemail. ] Neck CTA 08/09/18 09:28 CONCLUSION: Negative CTA of the neck. Cervical Spine MRI 08/10/18 00:00 CONCLUSION: 1. Fracturing through the prominent flowing spurs at the C6 level and extending into the anterior inferior aspect of C6 vertebral body without displacement. Minimal edema seen around the fracture site. 2. Prominent spurring extending from C4 to into the thoracic spine consistent with DISH. 3. Mild central disc protrusion at the C3-C4 level. 4. Mild disc protrusion with the apex at the left lateral recess region at the C5-C6 level. 5. Neural foraminal narrowing at the C3-C4 and C5-C6 levels. Chest X-Ray 08/10/18 00:00 CONCLUSION: ET tube in good position. Lungs are grossly clear. Head MRI 08/10/18 00:00 CONCLUSION: 1. No acute intracranial abnormality. 2. Mild atrophy. Lumbar Spine CT 08/10/18 00:00 CONCLUSION: 1. No acute abnormality seen. 2. Prominent spur seen throughout the thoracic and lumbar spine likely from DISH. 3. Mild disc bulges at the L3-L4 and L4-L5 levels. 4. Lower lumbar facet hypertrophy. Thoracic Spine CT 08/10/18 00:00 CONCLUSION: 1. No fracture is seen. 2. Prominent spurring seen throughout the thoracic spine but be secondary to DISH. 3. Subpleural areas of consolidation or atelectasis at the posterior lower lungs. Chest CTA 08/11/18 00:00 CONCLUSION: 1. No evidence of any pulmonary embolism. 2. There are bilateral infiltrates predominantly in the posterior mid to lower lung villarreal. 3. 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 Chest X-Ray 08/11/18 13:29 CONCLUSION: Increasing bibasal infiltrates. Venous Doppler Study 08/12/18 00:00 CONCLUSION: 1. The study is negative for bilateral lower extremity deep venous thrombosis. Chest X-Ray 08/13/18 10:17 CONCLUSION: Mild improvement in the bibasilar pulmonary infiltrates compared to the prior exam. Venous Doppler Study 08/14/18 00:00 CONCLUSION: 1. Occlusive and nonocclusive thrombus within the bilateral cephalic veins. Abdomen/Bladder Ultrasound 08/14/18 07:24 CONCLUSION: 1. Mild prominence of the right collecting system suggestive of some mild hydronephrosis. 2. The left kidney is unremarkable. 3. The urinary bladder appears to be distended with a volume of 1554 mL. Lumbar Puncture Fluoroscopy 08/15/18 12:27 CONCLUSION: 1. Uncomplicated fluoroscopically guided lumbar puncture. Chest X-Ray 08/16/18 06:00 CONCLUSION: Modest worsening parenchymal consolidation and small effusions at each base. Venous Doppler Study 08/17/18 00:00 CONCLUSION: 1. Occlusive thrombus of the cephalic veins bilaterally. No other venous thrombosis. Chest X-Ray 08/17/18 09:51 CONCLUSION: Satisfactory position of endotracheal and nasogastric tubes Persistent significant mid lung and basilar opacity without significant improvement Chest X-Ray 08/18/18 10:46 CONCLUSION: Trach tube in good position. There is no pneumothorax Chest X-Ray 08/21/18 06:00 CONCLUSION: Bibasilar areas of consolidation or atelectasis. Some degree of effusions may be present. Abdomen X-Ray 08/21/18 10:22 CONCLUSION: 1. Nonspecific marginally dilated air-filled colon. Differential considerations include mild colonic ileus. Abdomen X-Ray 08/22/18 06:00 CONCLUSION: No significant change. Chest X-Ray 08/22/18 06:00 CONCLUSION: Interval improvement in bibasilar opacity with mild residual left greater than right. There is a probable left effusion. Abdomen X-Ray 08/22/18 08:14 CONCLUSION: Interval improvement. Gastrostomy tube in good position. I see no significant distention. Chest X-Ray 08/23/18 06:00 CONCLUSION: No significant change. Chest X-Ray 08/24/18 06:00 CONCLUSION: No significant change. Objective Remarks: GEN: 58-year-old male currently on ventilator via tracheostomy HEENT: Mucosa moist and pink NECK: Tracheostomy present, clean/ dry/ intact. [place] J collar in place. CARDIO: Regular rate and rhythm. S1, S2. No S4. PULM: Remains on T-piece. Few crackles in the bases. No wheezing. ABD/GI: PEG present, clean/ dry/ intact, non-tender in all quadrants EXT/MSK: No peripheral edema SKIN: Warm and well-perfused, no rashes or lesions NEURO: RASS 0, follows commands with all 4 extremities PSYCH: Calm, no current agitation Assessment and Plan - Assessment and Plan Plan: Neuro/Psych: Acute toxic metabolic encephalopathy Involuntary movements -EEG 08/09- for epileptiform activity Anterior C6 fracture -[place] J collar times 6 weeks EtOH abuse/withdrawal Currently requiring fentanyl drip at 150 william grams an hour/potassium drip at 4 mg an hour/dexmedetomidine drips at 0.8 mcg/kg/h for persistent agitation Currently on chlordiazepoxide 50 mg 3 times daily, Quetiapine 100 mg 3 times daily, valproic acid 500 mg 3 times daily and oxycodone 10 mg every 4 hours and attempt to wean Start baclofen 10 mg 3 times daily As needed haloperidol 5 mg every 6 hours for breakthrough agitation MRI C-spine nondisplaced C6 fracture, continue [place] collar for 6 weeks per neurosurgery, moving all extremities spontaneously Discontinued lacosamide 100 mg IV twice daily secondary to rash-- allergies updated Continue supplementation with thiamine, folic acid and multivitamin Neuropsychiatry recommendations appreciated Acetaminophen 650 by tube every 6 hours as needed fever Cardiovascular: Hypertensive emergency Dyslipidemia Continues to have profound hypertension despite multiple meds via IV and PEG Currently on carvedilol 25 mg 3 times daily, amlodipine 10 mg daily isosorbide dinitrate 20 mg 3 times daily and hydralazine 100 mg 3 times daily. Decrease lisinopril to 10 mg twice daily As needed clevidipine drip for breakthrough hypertension Abdominal US on 08/14 showed mild hydronephrosis but no other obvious renal cause of HTN Currently on pravastatin 40 mg at night Continue ASA 81 mg daily Pulmonary: Acute hypoxic hypercapnic respiratory failure Status post percutaneous tracheostomy 08/[address] Conn T-piece trials, allow to stay on T piece as long as he tolerates and rest on CPAP PRN Vent bundle Albuterol/ipratropium every 4 hours scheduled with albuterol aerosols every 2 hours as needed dyspnea Bilateral cephalic DVTs, no PE on CTA chest Pulm recs appreciated GI/liver: Elevated transaminases downward trending Hypoalbuminemia with moderate protein calorie malnutrition Status post PEG by Dr. Jensen 08/20 Ileus Tube feeding with Jevity 1.5 goal 60 cc an hour Famotidine 20 mg IV twice daily for GI prophylaxis Bowel regimen with docusate sodium 100 mg twice daily, polythene glycol centigrams and lactulose 30 cc twice daily Metoclopramide 5 mg 3 times daily and erythromycin base to 50 mg 3 times daily prokinetic high residuals methylnaltrexone x1 Check KUB. Negative hepatitis panel FEN/renal/: Acute kidney injury- resolved Hypokalemia Urinary retention with mild bilateral hydronephrosis IV hydration, strict intake output, monitor and replete electrolytes, follow BUN /creatinine. Attempt trial of void with scheduled straight cath PRN ID: All cultures negative thus far with the exception of 1 blood culture on 08/17 growing staph epidermidis (contaminant); continue to observe off antibiotics Endocrine: SSI as needed to maintain euglycemia Heme: Normocytic anemia Thrombocytosis Documentation of prior possible right subclavian occlusion -negative Doppler Bilateral cephalic occlusive and nonocclusive superficial venous thrombosis Currently on enoxaparin 40 mg subcu daily for. Consider reimaging in 1 week to see if basilic vein affected MSK: Diffuse idiopathic skeletal hyperostosis drug rash possible DRESS Resolving PT/OT Prophylaxis: -Famotidine -SCDs, enoxaparin Level 2 follow-up Code Status: Full code Discussed Condition With: ISC RN. CARE plan discussed and all questions answered. No family available.
--- NOTE | 2018-08-26 10:02 | XR ---
EXAM DATE: 08/26/2018 9:57 AM EST AGE/SEX: 58 years / Male INDICATIONS: Ileus CLINICAL DATA: This is the patient's initial encounter. Patient reports that signs and symptoms have been present for 2 weeks and indicates a pain score of Nonresponsive. MEDICAL/SURGICAL HISTORY: Hypertension. None. COMPARISON: [facility] – [place] [facility], 08/22/2018. . FINDINGS: A gastric tube is noted in the stomach. There is no small or large bowel dilatation. Degenerative ch anges are noted throughout the thoracolumbar spine. No free intraperitoneal air is noted. No abnormal calcifications are noted. Left basilar streakiness is noted consistent with atelectasis and/or mild infiltrate. Degenerative changes are noted involving the hip joints bilaterally. CONCLUSION: 1. No evidence of small or large bowel dilatation. 2. Left basilar streakiness is noted consistent with atelectasis and/or mild infiltrate. 3. Degenerative changes are noted throughout the thoracolumbar spine and bilateral hips. Electronically signed by: Lenny Davis MD Board Certified Radiologist 08/26/2018 10:01 AM EST
[2018-08-26] MEDS: Beneprotein Powder Packet G-TUBE SCH ×3 (11:00→18:47)
[2018-08-26] MEDS: Dexmedetomidine Inj 1,000 MCG in Sodium Chlor 0.9% Inj 240 ML IV.CONT PRN (11:02)
[2018-08-26] MEDS: Lisinopril 10 MG Tablet PO SCH ×2 (12:52→21:06)
[2018-08-26] MEDS ORDERED: Methylnaltrexone Inj 12 MG/0.6 ML Vial SQ ONE (13:00)
[2018-08-26] MEDS: Baclofen 10 MG Tablet PO SCH ×2 (13:03→21:12)
--- NOTE | 2018-08-26 18:16 | P.PN ---
Subjective Interval history: He is awake and seems somewhat agitated. On a T-bar at 30% FiO2 with saturations at 98%. Still on fentanyl midazolam and Precedex drips. CT shows mild basilar atelectasis. Physical Exam Vital signs: Vital Signs 08/25/18 19:00 08/25/18 19:45 08/25/18 19:59 Temperature Pulse Rate 73 72 Respiratory Rate 15 28 H Blood Pressure 142/63 H Pulse Oximetry 98 98 97 08/25/18 20:00 08/25/18 20:15 08/25/18 20:30 Temperature Pulse Rate 75 75 77 Respiratory Rate 35 H 24 31 H Blood Pressure 130/70 Pulse Oximetry 97 96 97 08/25/18 20:45 08/25/18 21:00 08/25/18 21:15 Temperature Pulse Rate 78 75 79 Respiratory Rate 26 H 26 H 29 H Blood Pressure 174/80 H Pulse Oximetry 97 98 99 08/25/18 21:30 08/25/18 21:45 08/25/18 22:00 Temperature Pulse Rate 77 81 82 Respiratory Rate 30 H 28 H 24 Blood Pressure 201/93 H Pulse Oximetry 98 99 99 08/25/18 22:15 08/25/18 22:30 08/25/18 22:45 Temperature Pulse Rate 78 82 78 Respiratory Rate 29 H 28 H 22 Blood Pressure Pulse Oximetry 99 100 99 08/25/18 23:00 08/25/18 23:15 08/25/18 23:30 Temperature 98.5 F Pulse Rate 89 84 78 Respiratory Rate 25 H 27 H 24 Blood Pressure 200/78 H Pulse Oximetry 99 97 97 08/25/18 23:35 08/25/18 23:45 08/26/18 00:00 Temperature Pulse Rate 77 75 73 Respiratory Rate 28 H 30 H 20 Blood Pressure 136/58 L Pulse Oximetry 97 97 98 08/26/18 00:05 08/26/18 00:15 08/26/18 00:30 Temperature Pulse Rate 72 71 70 Respiratory Rate 21 32 H 21 Blood Pressure 121/58 L Pulse Oximetry 97 98 98 08/26/18 00:35 08/26/18 00:45 08/26/18 01:00 Temperature Pulse Rate 70 70 70 Respiratory Rate 20 19 20 Blood Pressure 122/58 L Pulse Oximetry 98 98 98 08/26/18 01:05 08/26/18 01:15 08/26/18 01:30 Temperature Pulse Rate 70 70 72 Respiratory Rate 27 H 25 H 20 Blood Pressure 133/65 Pulse Oximetry 98 98 99 08/26/18 01:35 08/26/18 01:45 08/26/18 02:00 Temperature Pulse Rate 71 70 70 Respiratory Rate 23 23 26 H Blood Pressure 146/69 H Pulse Oximetry 99 99 99 08/26/18 02:05 08/26/18 02:15 08/26/18 02:30 Temperature Pulse Rate 72 74 73 Respiratory Rate 26 H 20 17 Blood Pressure 163/77 H Pulse Oximetry 99 99 99 08/26/18 02:35 08/26/18 02:41 08/26/18 02:45 Temperature Pulse Rate 80 86 85 Respiratory Rate 16 30 H 21 Blood Pressure 217/98 H 141/67 H Pulse Oximetry 99 99 99 08/26/18 03:00 08/26/18 03:05 08/26/18 03:15 Temperature Pulse Rate 78 77 85 Respiratory Rate 20 24 31 H Blood Pressure 156/74 H Pulse Oximetry 99 99 99 08/26/18 03:30 08/26/18 03:35 08/26/18 03:45 Temperature Pulse Rate 82 80 81 Respiratory Rate 28 H 19 23 Blood Pressure 138/62 Pulse Oximetry 100 99 99 08/26/18 03:50 08/26/18 04:00 08/26/18 04:05 Temperature Pulse Rate 84 82 Respiratory Rate 38 H 37 H Blood Pressure 142/72 H Pulse Oximetry 97 97 97 08/26/18 04:15 08/26/18 04:30 08/26/18 04:35 Temperature 98.3 F Pulse Rate 79 75 74 Respiratory Rate 30 H 31 H 32 H Blood Pressure 109/55 L Pulse Oximetry 97 96 95 08/26/18 04:45 08/26/18 05:00 08/26/18 05:05 Temperature Pulse Rate 72 87 86 Respiratory Rate 23 28 H 34 H Blood Pressure 154/85 H Pulse Oximetry 96 98 97 08/26/18 05:15 08/26/18 05:30 08/26/18 05:35 Temperature Pulse Rate 77 71 75 Respiratory Rate 25 H 25 H 27 H Blood Pressure 142/74 H Pulse Oximetry 98 97 98 08/26/18 05:45 08/26/18 06:00 08/26/18 06:05 Temperature Pulse Rate 73 69 68 Respiratory Rate 25 H 27 H 25 H Blood Pressure 99/50 L Pulse Oximetry 98 97 97 08/26/18 06:15 08/26/18 06:30 08/26/18 06:35 Temperature Pulse Rate 66 66 65 Respiratory Rate 23 26 H 25 H Blood Pressure 92/55 L Pulse Oximetry 97 97 97 08/26/18 07:00 08/26/18 07:58 08/26/18 08:00 Temperature Pulse Rate 66 64 Respiratory Rate 17 18 Blood Pressure 102/55 L 101/54 L Pulse Oximetry 97 96 97 08/26/18 09:00 08/26/18 10:00 08/26/18 11:00 Temperature Pulse Rate 64 71 73 Respiratory Rate 12 12 11 L Blood Pressure 120/59 L 167/87 H 163/70 H Pulse Oximetry 98 99 98 08/26/18 12:00 08/26/18 13:00 08/26/18 14:00 Temperature 98 F Pulse Rate 80 72 75 Respiratory Rate 24 22 16 Blood Pressure 170/86 H 118/64 118/60 Pulse Oximetry 98 95 96 08/26/18 15:00 08/26/18 15:24 08/26/18 16:00 Temperature 97.5 F L Pulse Rate 68 64 63 Respiratory Rate 14 14 15 Blood Pressure 93/51 L 90/52 L Pulse Oximetry 97 95 Intake & Output 08/25/18 08/26/18 08/26/18 18:59 06:59 18:59 Intake Total 1631.2 / 1631.2 512 / 512 250 / 250 Output Total 3200 / 3200 1875 / 1875 Balance -1568.8 / -1568.8 -1363 / -1363 250 / 250 Weight 82 kg Intake: IV 1511.2 / 1511.2 485 / 485 250 / 250 Precedex Inj 1,000 MCG In NS 250 / 250 235 / 235 250 / 250 Inj 240 ML @ 0.2 MCG/KG/HR 5.18 mls/hr IV.CONT TITRATE PRN Rx# :[id number] Versed Inj 100 mg In 100 ml @ 2 100 / 100 MG/HR 2 mls/hr IV.CONT TITRATE PRN Rx#:[id number] MVI-12 Inj 10 ML Thiamine Inj 511.2 / 511.2 100 MG Folvite Inj 1 MG In D5W- 1/2 NS Inj 500 ML @ 127.8 mls/ hr IV.SIG DAILY SATYA Rx#: [id number] KCl 20 mEq Premix Inj 20 meq In 400 / 400 100 ml @ 50 mls/hr IV.SIG Q2H PRN Rx#:[id number] fentaNYL 10 mcg/mL Premix Drip 250 / 250 250 / 250 2,500 mcg In 250 ml @ 50 MCG/HR 5 mls/hr IV.SIG TITRATE PRN Rx #:[id number] Tube Feeding Other 120 / 120 Output: Urine Amount (Catheter) 3200 / 3200 1875 / 1875 Indwelling Urethral Catheter 3200 / 3200 1875 / 1875 Other: Date of Last Bowel Movement 08/25/18 08/25/18 08/25/18 Narrative: GENERAL: Mid aged W/M on a T Tube with trach in place SKIN: Warm and dry. HEAD: Atraumatic. Normocephalic. EYES: Pupils equal and round. No scleral icterus. Mild injection no drainage. ENT: No nasal bleeding or discharge. Mucous membranes pink and moist. NECK: Trachea midline. No JVD. Trach tube in place CARDIOVASCULAR: Regular rate and rhythm. RESPIRATORY: No accessory muscle use. Breath sounds equal bilaterally. GASTROINTESTINAL: Abdomen soft, non-tender, nondistended. Hepatic and splenic margins not palpable. MUSCULOSKELETAL: Extremities without clubbing, cyanosis, or edema. No obvious deformities. NEUROLOGICAL: Lethargic. Moves legs but weak. - Urinary Catheter Management Indwelling Urethral Catheter Cath placed during this visit: yes, but has since been removed by the nurse Reason for continuing: Decision to DC catheter Insertion date: 08/17/18 Insertion time: 18:30 Removal date: 08/26/18 Removal time: 06:30 Condom Cath placed during this visit: no Reason for continuing: Not indwelling catheter Straight Cath placed during this visit: yes Reason for continuing: Acute urinary retention Insertion date: 08/17/18 Insertion time: 10:30 Results - Labs CBC & Chem 7: 08/26/18 04:01 08/26/18 04:01 Laboratory Results - last 24 hr 08/25/18 08/26/18 08/26/18 19:22 04:01 04:01 WBC 9.4 RBC 3.78 L Hgb 12.0 L Hct 35.2 L MCV 92.9 MCH 31.7 MCHC 34.1 RDW 14.2 Plt Count 552 H MPV 7.3 Neut % (Auto) 66.3 Lymph % (Auto) 15.9 [place] % (Auto) 9.5 H Eos % (Auto) 7.4 H Baso % (Auto) 0.9 Neut # (Auto) 6.2 Lymph # (Auto) 1.5 [place] # (Auto) 0.9 Eos # (Auto) 0.7 H Baso # (Auto) 0.1 WBC Differential . Differential Comment Auto diff final Sodium 143 Potassium 3.7 3.7 Chloride 106 Carbon Dioxide 31.2 Anion Gap 6 BUN 13 Creatinine 1.12 Estimated GFR 68 L Random Glucose 97 Calcium 9.4 Total Bilirubin 0.3 AST 17 ALT 22 Alkaline Phosphatase 127 H Total Protein 7.3 D Albumin 2.5 L - Imaging Impressions Abdomen X-Ray 08/26/18 00:00 CONCLUSION: 1. No evidence of small or large bowel dilatation. 2. Left basilar streakiness is noted consistent with atelectasis and/or mild infiltrate. 3. Degenerative changes are noted throughout the thoracolumbar spine and bilateral hips. Assessment and Plan - Assessment (1) Respiratory failure requiring intubation Code(s): J96.90 - Respiratory failure, unspecified, unspecified whether with hypoxia or hypercapnia Status: Acute (2) Pneumonia Code(s): J18.9 - Pneumonia, unspecified organism Status: Acute (3) Seizure Code(s): R56.9 - Unspecified convulsions Status: Acute (4) Hypertensive urgency Code(s): I16.0 - Hypertensive urgency Status: Acute (5) Alcohol intoxication Code(s): F10.929 - Alcohol use, unspecified with intoxication, unspecified Status: Acute (6) Altered mental status Code(s): R41.82 - Altered mental status, unspecified Status: Acute (7) Delirium due to general medical condition Code(s): F05 - Delirium due to known physiological condition Status: Acute - Plan 1. Cont T bar as tolerated FIO2 28 % 2. Reduce sedation. 3. Trach lavage and Suction.PRN 4. Continue Duoneb nebs Q6H 5. CBC, BMP in am 6. Tube feeds at 60 CC 7. Seizure precautions. 8. Antibiotics as ordered. 9. Wean off drips
[2018-08-26] MEDS: Midazolam 100 MG/100 ML Inj 100 MG/100 ML BAG IV.CONT PRN (21:02)
[2018-08-27] MEDS: Dexmedetomidine Inj 1,000 MCG in Sodium Chlor 0.9% Inj 240 ML IV.CONT PRN ×3 (00:34→22:09)
[2018-08-27] MEDS: Oral Hygiene Kit OROPHARYNG SCH ×4 (01:30→16:21)
[2018-08-27] MEDS: Labetalol HCl Inj 100 MG/20 ML Vial IV.PUSH PRN (03:23)
[2018-08-27 03:58] LABS: Baso # (Auto) 0.1 th/mm3 (0.0-0.2); Baso % (Auto) 0.9 % (0.0-2.0); Eos # (Auto) 0.5 th/mm3 (0.0-0.4); Eos % (Auto) 7.1 % (0.0-4.0); Hemoglobin 11.4 gm/dL (13.0-17.0); Lymph % (Auto) 13.1 % (9.0-44.0); Mean Corpuscular HGB Conc 34.5 % (32.0-36.0); Mean Corpuscular Hemoglobin 31.8 pg (27.0-34.0); Mean Platelet Volume 7.2 fL (7.0-11.0); Mono # (Auto) 0.7 th/mm3 (0.0-0.9); Mono % (Auto) 9.8 % (0.0-8.0); Neut # (Auto) 5.2 th/mm3 (1.8-7.7); Neut % (Auto) 69.1 % (16.0-70.0); Platelet Count 507 th/mm3 (150-450); Red Blood Count 3.59 mil/mm3 (4.50-5.90); Red Cell Distribution Width 13.7 % (11.6-17.2); White Blood Count 7.5 th/mm3 (4.0-11.0)
[2018-08-27 04:19] LABS: Alanine Aminotransferase 18 U/L (12-78); Albumin 2.3 g/dL (3.4-5.0); Anion Gap 8 meq/L (5-15); Aspartate Aminotransferase 16 U/L (15-37); Blood Urea Nitrogen 12 mg/dL (7-18); Calcium 9.5 mg/dL (8.5-10.1); Carbon Dioxide 28.3 meq/L (21.0-32.0); Chloride 106 meq/L (98-107); Glomerular Filtration Rate Greater Than 89 mL/min (>89); Glucose,Random 100 mg/dL (74-106); Magnesium 2.1 mg/dL (1.5-2.5); Potassium 3.4 meq/L (3.5-5.1); Sodium 142 meq/L (136-145)
[2018-08-27 04:22] LABS: Alkaline Phosphatase 107 U/L (45-117); Total Protein 6.7 g/dL (6.4-8.2)
[2018-08-27] MEDS: Baclofen 10 MG Tablet PO SCH ×3 (05:21→22:08)
[2018-08-27] MEDS: chlordiazePOXIDE 25 MG Capsule PO SCH ×3 (05:21→20:32)
--- NOTE | 2018-08-27 05:37 | XR ---
EXAM DATE: 08/27/2018 4:44 AM EST AGE/SEX: 58 years / Male INDICATIONS: Shortness of breath. CLINICAL DATA: This is the patient's subsequent encounter. Patient reports that signs and symptoms h ave been present for 4 - 6 days and indicates a pain score of Nonresponsive. MEDICAL/SURGICAL HISTORY: Hypertension. None. COMPARISON: [facility] [place], CHEST 1V SINGLE AP, 08/24/2018. . FINDINGS: A single AP view of the chest demonstrates no interval change. Bibasilar consolidations with tiny lef t effusion. Heart is normal in size. Degenerative spine. Tracheostomy tube. CONCLUSION: Unchanged bibasilar infiltrates with tiny left effusion. Electronically signed by: Bhavik Mcdonald MD Board Certified Radiologist 08/27/2018 5:36 AM EST
[2018-08-27] MEDS: Polyethylene Glycol 3350 17 GM Packet PO SCH (08:01)
[2018-08-27] MEDS: Enoxaparin Inj 40 MG/0.4 ML Syringe SQ SCH (08:01)
[2018-08-27] MEDS: Famotidine PF Inj 20 MG/2 ML Vial IV.PUSH SCH ×2 (08:01→20:32)
[2018-08-27] MEDS: Docusate Sodium Liq 100 MG/10 ML UDC G-TUBE SCH ×2 (08:01→20:38)
[2018-08-27] MEDS: amLODIPine 5 MG Tablet PO SCH (08:02)
[2018-08-27] MEDS: QUEtiapine 100 MG Tablet PO SCH ×3 (08:02→17:42)
[2018-08-27] MEDS: Folic Acid 1 MG Tablet PO SCH (08:02)
[2018-08-27] MEDS: Beneprotein Powder Packet G-TUBE SCH ×3 (08:03→17:43)
[2018-08-27] MEDS: Chlorhexidine 0.12% Oral Kit 15 ML UDC OROPHARYNG SCH ×2 (08:03→20:30)
[2018-08-27] MEDS: Carvedilol 12.5 MG Tablet PO SCH ×2 (08:03→20:31)
--- NOTE | 2018-08-27 08:17 | P.PNNPSY ---
- Cognitive Moderate: Cognitive, Attention/concentration, Confused/orientation, Insight/ awareness, Judgment/problem solving, Memory - Progress Notes/Response to Treatment Contents of Sessions: Adjustment, Level of consciousness Time with Patient: 30 minutes Premorbid Psychological Status: Premorbid Cognitive, Emotional and Behavioral Status: Tenuous. The patient has high school years of education and a sporadic work history prior to this injury. The patient has possible prior psychiatric difficulties, as described above. Substance abuse history includes ETOH. Behavioral Reactions of Patient and Family/Support System: Tenuous. The patients family is experiencing ongoing issues of adjustment given the nature of the injury, and this aspect of recovery will require ongoing monitoring. Emotional/Behavioral Status of Patient and Family/Support System: Tenuous. Pertinent issues, if appropriate to this patients clinical care, are described in detail above. Maximizing Acute Care Outcome: The patient is presently managed on Seroquel 50 BID and VPA 250 BID and Librium and Versed. Consider increasing Seroquel to 75/75/100 and VPA to 250 TID, with a PRN Haldol, with goal of bringing agitation/restlessness down to below a total score of 21 on all subscores of the ABS, and so we can d/c benzo's which may be contributing to his agitation/confusion. Presently he is at 24.5 on the disinhibition subscore. He is generally past BEREKET at this point, successfully managed throughout his critical care treatment thus far. Promote as normal as possible sleep wake cycle, and 100 HS of Seroquel may assist in this endeavor. At this point in the recovery process, the patient does not have cognitive capacity as the patient is unable to understand a situation and its likely consequences, nor is the patient able to manipulate information rationally. Cognitive capacity will be assessed throughout the recovery process. Anticipated Problems: Ongoing areas of concern will include behavioral impulsivity, lack of insight and judgment, which is expected to improve with time and treatment. Treatment Plan: This clinician will continue to follow with you throughout the course of this patients critical care treatment, and I will be available to meet with the patients family/support system to facilitate their understanding and the ongoing care of their family member. The goals of neuropsychological intervention shall be both educational and supportive to the family/support system as is deemed clinically appropriate. 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 Progress Note Narrative: Day 18. Agitation/restlessness remains an issue, particularly when repositioned. Recent ABS is 19 (22.8,17.5,14). He is managed on Seroquel 100 TID, VPA 250 TID and Librium 50 q8H. This patient continues to have medical challenges as he works towards recovery. I will follow. - Diagnosis (1) Delirium due to general medical condition Status: Acute
[2018-08-27] MEDS ORDERED: Potassium Chloride 25 MEQ Effervescent Tablet PO ONE (09:52)
--- NOTE | 2018-08-27 09:59 | P.PNCC ---
Subjective Subjective Remarks/Hospital Course: 08/09: 58-year-old male who was found down in his friend's garage this morning. He has a history of alcohol abuse. He recently sold his house and was staying at a friend's home. Reportedly he was due to fly later today. Patient was brought to the ER by EMS and was noted to have involuntary movements with jerking movements involving upper and lower extremities as well as his head. He received Ativan 3 mg IV and was loaded with Keppra. Initially stroke alert was called. Head CT was negative for any bleed however there was question of C6 fracture. Neurology and neurosurgery were consulted. Patient was loaded with IV Cerebyx and Vimpat by neurology. He had a [place] J collar placed after placing hard cervical collar by neurosurgery. When I evaluated the patient in the ER he was still having involuntary movements which appeared to be episodic with occasional twitchings on his face and nystagmus. This did not appear to be generalized tonic-clonic convulsions however appeared more like an extrapyramidal reaction. I ordered a stat EEG. Patient moving around too much to obtain MRI at this time. His urine tox screen was negative. He was positive for alcohol. Patient nonverbal. His involuntary movements get exaggerated on stimulation. He was reportedly completely normal yesterday. 08/10: Patient had an episode of emesis last night followed by labored breathing. He continued to have involuntary movements. He was intubated and placed on mechanical ventilation. Currently sedated with propofol, orally intubated on mechanical ventilation. Awaiting MRI brain and C-spine. EEG done yesterday did not show any seizure activity. 08/11: Sedated, orally intubated on mechanical ventilation. MRI brain unremarkable. MRI C-spine with hairline C6 fracture with no displacement. 08/12: Remains sedated, orally intubated on mechanical ventilation. Reintubated yesterday for significant hypoxia and respiratory distress with O2 sats dropping to the 70s despite nonrebreather facemask. CT pulmonary angiogram was negative for PE and showed bilateral infiltrates at the bases. 08/13: Remains sedated, orally intubated on mechanical ventilation. On propofol /fentanyl GTT. Starting tube feeds 08/14: T-max 99.4. Currently 98.3. Scheduled for IR for lumbar puncture today. Patient acute injury. Patient is on vancomycin, acyclovir and did receive IV contrast recently. Renal ultrasound ordered. Urine eosinophils, sodium and creatinine ordered. Arousable and does follow commands on the ventilator. Breakthrough agitation/involuntary systemic movements noted 08/15: Plan for lumbar puncture today. Will likely try sedation vacation overnight. See 4 mg of midazolam overnight due to agitation. Appears comfortable. Intermittently follows commands. 08/16: Lumbar puncture from yesterday accomplished. We will try sedation vacation again today and tried on dexmedetomidine drip. Rash is much improved. Discontinued lacosamide possible source of rash. Remains leukopenic and elevated eosinophils. 08/17: Low-grade fevers overnight. Blood cultures x2, sputum performed. Will start on piperacillin/tazobactam vancomycin. Extubated today. Tolerated about 2 hours but became hypoxic on 100% nonrebreather and tachypneic. Intubated with axial traction. Will need tracheostomy has failed extubation x2 08/18: T-max 100.1. Failed extubation requiring reintubation. Tracheostomy planned for 10 AM today. 08/19: Afebrile overnight. Chest x-ray following tracheostomy demonstrates tube in good position safely above the tory. Basilar infiltrates persist but clearing. On spontaneous breathing trial earlier today he had apneic episodes. With no sedation he becomes extremely agitated however. 08/20: Percutaneous gastrostomy tube plan for today. Very agitated. Remains on clevidipine drip. 08/21: Status post percutaneous gastrostomy tube 08/20. Some distention. Currently drainage. Will check KUB. Very agitated requiring midazolam drip. We will consult neuropsychology for assistance. 08/22: Low-grade fevers overnight. Remains on multiple sedatives. Adjusted increased valproic acid and quetiapine yesterday per neuropsychiatrist rec. On trickle feeds. 08/23: T-max 99.8. Currently afebrile. We will discontinue antibiotics today. Did not require held overnight. We will advance tube feeds to goal. Positive BM. Interactive weakly. 08/24: Patient continues to follow commands but appears to be confused at times. He lifts his right leg when asked to move the left leg. He can internally rotate his right arm but does not lift against gravity. Analgesia and Versed sedation required for vent synchrony and to remain calm during T- piece trials. 08/25: Patient tolerating T piece trials, remains agitated while stimulated. Follows commands. No acute distress. 08/26: Afebrile. Tolerating tube feeds times 24 hours. Remains on midazolam, fentanyl and dexmedetomidine drips. Positive BM. 700 cc residuals. Currently metoclopramide will add erythromycin base. KUB ordered. Positive diarrhea. Subjective 08/27: Afebrile. Afebrile. Currently on fentanyl drip at 50 william grams an hour and dexmedetomidine drip at 1.3 mcg/kg/h. Midazolam drip is off. Positive BM . Tube feeds at 30 cc an hour Objective Vital Signs / I&O: Vital Signs 08/26/18 10:00 08/26/18 11:00 08/26/18 12:00 Temperature 98 F Pulse Rate 71 73 80 Respiratory Rate 12 11 L 24 Blood Pressure 167/87 H 163/70 H 170/86 H Pulse Oximetry 99 98 98 08/26/18 13:00 08/26/18 14:00 08/26/18 15:00 Temperature Pulse Rate 72 75 68 Respiratory Rate 22 16 14 Blood Pressure 118/64 118/60 93/51 L Pulse Oximetry 95 96 97 08/26/18 15:24 08/26/18 16:00 08/26/18 17:00 Temperature 97.5 F L Pulse Rate 64 63 69 Respiratory Rate 14 15 13 Blood Pressure 90/52 L 148/75 H Pulse Oximetry 95 98 08/26/18 18:00 08/26/18 18:35 08/26/18 19:00 Temperature Pulse Rate 66 66 66 Respiratory Rate 15 14 12 Blood Pressure 127/70 121/66 Pulse Oximetry 97 99 98 08/26/18 19:05 08/26/18 19:35 08/26/18 20:00 Temperature 98 F Pulse Rate 65 60 58 L Respiratory Rate 12 12 12 Blood Pressure 125/70 99/55 L Pulse Oximetry 97 97 97 08/26/18 20:05 08/26/18 20:35 08/26/18 21:00 Temperature Pulse Rate 58 L 57 L 56 L Respiratory Rate 12 11 L 11 L Blood Pressure 103/58 L 106/60 Pulse Oximetry 97 97 97 08/26/18 21:05 08/26/18 21:16 08/26/18 21:17 Temperature Pulse Rate 56 L 56 L Respiratory Rate 11 L 16 Blood Pressure 117/64 Pulse Oximetry 97 98 08/26/18 21:35 08/26/18 22:00 08/26/18 22:05 Temperature Pulse Rate 60 57 L 56 L Respiratory Rate 11 L 12 12 Blood Pressure 94/50 L 85/50 L Pulse Oximetry 95 94 L 94 L 08/26/18 22:35 08/26/18 23:00 08/26/18 23:04 Temperature Pulse Rate 56 L 63 63 Respiratory Rate 13 12 12 Blood Pressure 93/52 L 135/76 135/76 Pulse Oximetry 97 98 98 08/26/18 23:05 08/26/18 23:35 08/26/18 23:40 Temperature Pulse Rate 61 55 L 54 L Respiratory Rate 12 12 13 Blood Pressure 140/80 114/67 Pulse Oximetry 98 98 08/27/18 00:00 08/27/18 00:05 08/27/18 00:35 Temperature 97.8 F Pulse Rate 70 74 69 Respiratory Rate 21 31 H 18 Blood Pressure 142/81 H 152/82 H Pulse Oximetry 99 100 100 08/27/18 01:00 08/27/18 02:00 08/27/18 03:00 Temperature Pulse Rate 72 68 75 Respiratory Rate 14 16 19 Blood Pressure 153/80 H 166/90 H 174/95 H Pulse Oximetry 99 100 97 08/27/18 03:53 08/27/18 04:00 08/27/18 04:24 Temperature 97.5 F L Pulse Rate 74 73 72 Respiratory Rate 22 14 14 Blood Pressure 167/93 H 148/78 H Pulse Oximetry 100 97 08/27/18 05:00 08/27/18 06:00 08/27/18 07:00 Temperature Pulse Rate 69 68 66 Respiratory Rate 16 17 16 Blood Pressure 137/68 109/57 L 127/67 Pulse Oximetry 96 95 96 08/27/18 08:00 08/27/18 08:05 08/27/18 08:08 Temperature 98.9 F Pulse Rate 68 68 Respiratory Rate 17 20 Blood Pressure 145/77 H Pulse Oximetry 97 08/27/18 08:10 08/27/18 08:52 08/27/18 08:53 Temperature Pulse Rate 66 Respiratory Rate 16 Blood Pressure Pulse Oximetry 99 97 08/27/18 09:00 Temperature Pulse Rate 66 Respiratory Rate 17 Blood Pressure 149/80 H Pulse Oximetry 97 Intake & Output 01/04/0608/27/18 08/27/18 18:59 06:59 18:59 Intake Total 1095 / 1095 1011 / 1011 Output Total 0 / 0 900 / 900 Balance 1095 / 1095 111 / 111 Weight 86.9 kg Intake: IV 645 / 645 350 / 350 Precedex Inj 1,000 MCG In NS 408 / 408 250 / 250 Inj 240 ML @ 0.2 MCG/KG/HR 5.18 mls/hr IV.CONT TITRATE PRN Rx# :[id number] Versed Inj 100 mg In 100 ml @ 2 90 / 90 100 / 100 MG/HR 2 mls/hr IV.CONT TITRATE PRN Rx#:[id number] fentaNYL 10 mcg/mL Premix Drip 147 / 147 2,500 mcg In 250 ml @ 50 MCG/HR 5 mls/hr IV.SIG TITRATE PRN Rx #:[id number] Tube Feeding 181 / 181 Water Bolus Amount 200 / 200 480 / 480 Other 240 / 240 Output: Urine Amount (Catheter) 0 / 0 900 / 900 Indwelling Urethral Catheter 0 / 0 Straight 900 / 900 Other: Date of Last Bowel Movement 08/26/18 08/25/18 08/25/18 Result Diagrams: 08/27/18 03:32 08/27/18 03:22 Other Results: Microbiology 08/18/18 11:45 Blood - Peripheral Aerobic Blood Culture - Final No growth in 5 days 08/18/18 11:45 Blood - Peripheral Anaerobic Blood Culture - Final No growth in 5 days 08/18/18 11:52 Blood - Peripheral Aerobic Blood Culture - Final No growth in 5 days 08/18/18 11:52 Blood - Peripheral Anaerobic Blood Culture - Final No growth in 5 days 08/17/18 03:20 Blood - Peripheral Aerobic Blood Culture - Final No growth in 5 days 08/17/18 03:20 Blood - Peripheral Anaerobic Blood Culture - Final No growth in 5 days 08/17/18 01:15 Blood - Peripheral Aerobic Blood Culture - Final Staphylococcus epidermidis 08/17/18 01:15 Blood - Peripheral Anaerobic Blood Culture - Final No growth in 5 days 08/17/18 00:30 Sputum - Endotracheal Gram Stain - Final 08/17/18 00:30 Sputum - Endotracheal Sputum Culture - Final No growth in 48 hours 08/11/18 14:29 Blood - Peripheral Aerobic Blood Culture - Final No growth in 5 days 08/11/18 14:29 Blood - Peripheral Anaerobic Blood Culture - Final No growth in 5 days 08/11/18 14:24 Blood - Peripheral Aerobic Blood Culture - Final No growth in 5 days 08/11/18 14:24 Blood - Peripheral Anaerobic Blood Culture - Final No growth in 5 days 08/11/18 15:00 Sputum - Endotracheal Gram Stain - Final 08/11/18 15:00 Sputum - Endotracheal Sputum Culture - Final Heavy growth normal respiratory sherman 08/09/18 11:00 Catheterized Urine Urine Culture - Final No growth in 48 hours Imaging: Head CT 08/09/18 09:20 CONCLUSION: 1. No acute intracranial abnormality is seen. 2. Mild widening of the cortical sulci which could suggest some atrophy. Report was called by [Dr. Dutton to at 9:49 AM. ] Chest X-Ray 08/09/18 09:21 CONCLUSION: No acute cardiopulmonary process. Cervical Spine CT 08/09/18 09:23 CONCLUSION: 1. Fracturing through anterior flowing spurs at the anterior C6 level with the fracture extending into the anterior inferior left lateral aspect of the C6 vertebral body. Empty displacement is not seen. No other possible fractures are seen. 2. 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 3. Degenerative change. Head CTA 08/09/18 09:28 CONCLUSION: Negative CTA. Report was called by [Dr. Dutton to Dr. Faustin. A message was left on the voicemail. ] Neck CTA 08/09/18 09:28 CONCLUSION: Negative CTA of the neck. Cervical Spine MRI 08/10/18 00:00 CONCLUSION: 1. Fracturing through the prominent flowing spurs at the C6 level and extending into the anterior inferior aspect of C6 vertebral body without displacement. Minimal edema seen around the fracture site. 2. Prominent spurring extending from C4 to into the thoracic spine consistent with DISH. 3. Mild central disc protrusion at the C3-C4 level. 4. Mild disc protrusion with the apex at the left lateral recess region at the C5-C6 level. 5. Neural foraminal narrowing at the C3-C4 and C5-C6 levels. Chest X-Ray 08/10/18 00:00 CONCLUSION: ET tube in good position. Lungs are grossly clear. Head MRI 08/10/18 00:00 CONCLUSION: 1. No acute intracranial abnormality. 2. Mild atrophy. Lumbar Spine CT 08/10/18 00:00 CONCLUSION: 1. No acute abnormality seen. 2. Prominent spur seen throughout the thoracic and lumbar spine likely from DISH. 3. Mild disc bulges at the L3-L4 and L4-L5 levels. 4. Lower lumbar facet hypertrophy. Thoracic Spine CT 08/10/18 00:00 CONCLUSION: 1. No fracture is seen. 2. Prominent spurring seen throughout the thoracic spine but be secondary to DISH. 3. Subpleural areas of consolidation or atelectasis at the posterior lower lungs. Chest CTA 08/11/18 00:00 CONCLUSION: 1. No evidence of any pulmonary embolism. 2. There are bilateral infiltrates predominantly in the posterior mid to lower lung villarreal. 3. 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 Chest X-Ray 08/11/18 13:29 CONCLUSION: Increasing bibasal infiltrates. Venous Doppler Study 08/12/18 00:00 CONCLUSION: 1. The study is negative for bilateral lower extremity deep venous thrombosis. Chest X-Ray 08/13/18 10:17 CONCLUSION: Mild improvement in the bibasilar pulmonary infiltrates compared to the prior exam. Venous Doppler Study 08/14/18 00:00 CONCLUSION: 1. Occlusive and nonocclusive thrombus within the bilateral cephalic veins. Abdomen/Bladder Ultrasound 08/14/18 07:24 CONCLUSION: 1. Mild prominence of the right collecting system suggestive of some mild hydronephrosis. 2. The left kidney is unremarkable. 3. The urinary bladder appears to be distended with a volume of 1554 mL. Lumbar Puncture Fluoroscopy 08/15/18 12:27 CONCLUSION: 1. Uncomplicated fluoroscopically guided lumbar puncture. Chest X-Ray 08/16/18 06:00 CONCLUSION: Modest worsening parenchymal consolidation and small effusions at each base. Venous Doppler Study 08/17/18 00:00 CONCLUSION: 1. Occlusive thrombus of the cephalic veins bilaterally. No other venous thrombosis. Chest X-Ray 08/17/18 09:51 CONCLUSION: Satisfactory position of endotracheal and nasogastric tubes Persistent significant mid lung and basilar opacity without significant improvement Chest X-Ray 08/18/18 10:46 CONCLUSION: Trach tube in good position. There is no pneumothorax Chest X-Ray 08/21/18 06:00 CONCLUSION: Bibasilar areas of consolidation or atelectasis. Some degree of effusions may be present. Abdomen X-Ray 08/21/18 10:22 CONCLUSION: 1. Nonspecific marginally dilated air-filled colon. Differential considerations include mild colonic ileus. Abdomen X-Ray 08/22/18 06:00 CONCLUSION: No significant change. Chest X-Ray 08/22/18 06:00 CONCLUSION: Interval improvement in bibasilar opacity with mild residual left greater than right. There is a probable left effusion. Abdomen X-Ray 08/22/18 08:14 CONCLUSION: Interval improvement. Gastrostomy tube in good position. I see no significant distention. Chest X-Ray 08/23/18 06:00 CONCLUSION: No significant change. Chest X-Ray 08/24/18 06:00 CONCLUSION: No significant change. Abdomen X-Ray 08/26/18 00:00 CONCLUSION: 1. No evidence of small or large bowel dilatation. 2. Left basilar streakiness is noted consistent with atelectasis and/or mild infiltrate. 3. Degenerative changes are noted throughout the thoracolumbar spine and bilateral hips. Chest X-Ray 08/27/18 06:00 CONCLUSION: Unchanged bibasilar infiltrates with tiny left effusion. Objective Remarks: GEN: 58-year-old male currently on ventilator via tracheostomy HEENT: Mucosa moist and pink NECK: Tracheostomy present, clean/ dry/ intact. [place] J collar in place. CARDIO: Regular rate and rhythm. S1, S2. No S4. PULM: Remains on T-piece. Few crackles in the bases. No wheezing. ABD/GI: PEG present, clean/ dry/ intact, non-tender in all quadrants EXT/MSK: No peripheral edema SKIN: Warm and well-perfused, no rashes or lesions NEURO: Cranial nerves II through XII grossly intact. Moves all 4 extremities spontaneously. PSYCH: Calm, no current agitation Assessment and Plan - Assessment and Plan Plan: Neuro/Psych: Acute toxic metabolic encephalopathy Involuntary movements -EEG 08/09- for epileptiform activity Anterior C6 fracture -[place] J collar times 6 weeks EtOH abuse/withdrawal Currently requiring fentanyl drip at 150 william grams an hour/potassium drip at 4 mg an hour/dexmedetomidine drips at 0.8 mcg/kg/h for persistent agitation Currently on chlordiazepoxide 50 mg 3 times daily, Quetiapine 150 mg 3 times daily, valproic acid 250 mg 3 times daily and oxycodone 10 mg every 4 hours and attempt to wean Start baclofen 10 mg 3 times daily As needed haloperidol 5 mg every 6 hours for breakthrough agitation MRI C-spine nondisplaced C6 fracture, continue [place] J collar for 6 weeks per neurosurgery, moving all extremities spontaneously Discontinued lacosamide 100 mg IV twice daily secondary to rash-- allergies updated Continue supplementation with thiamine, folic acid and multivitamin Neuropsychiatry recommendations appreciated Acetaminophen 650 by tube every 6 hours as needed fever Cardiovascular: Hypertensive emergency Dyslipidemia Continues to have profound hypertension despite multiple meds via IV and PEG Currently on carvedilol 25 mg 3 times daily, amlodipine 10 mg daily isosorbide dinitrate 20 mg 3 times daily and hydralazine 100 mg 3 times daily. Decrease lisinopril to 10 mg twice daily As needed clevidipine drip for breakthrough hypertension Abdominal US on 08/14 showed mild hydronephrosis but no other obvious renal cause of HTN Currently on pravastatin 40 mg at night Continue ASA 81 mg daily Pulmonary: Acute hypoxic hypercapnic respiratory failure Status post percutaneous tracheostomy 08/[address] Conn T-piece trials, allow to stay on T piece as long as he tolerates and rest on CPAP PRN Vent bundle Albuterol/ipratropium every 4 hours scheduled with albuterol aerosols every 2 hours as needed dyspnea Bilateral cephalic DVTs, no PE on CTA chest Pulm recs appreciated GI/liver: Elevated transaminases downward trending Hypoalbuminemia with moderate protein calorie malnutrition Status post PEG by Dr. Jensen 08/20 Ileus Tube feeding with Jevity 1.5 goal 60 cc an hour Famotidine 20 mg IV twice daily for GI prophylaxis Bowel regimen with docusate sodium 100 mg twice daily, polythene glycol centigrams and lactulose 30 cc twice daily Metoclopramide 5 mg 3 times daily stop date 08/27 and erythromycin base 250 mg 3 times daily until 08/31 as prokinetic high residuals methylnaltrexone x1 DB revealed no large and small bowel ileus. Negative hepatitis panel FEN/renal/: Acute kidney injury- resolved Hypokalemia Urinary retention with mild bilateral hydronephrosis IV hydration, strict intake output, monitor and replete electrolytes, follow BUN /creatinine. Attempt trial of void with scheduled straight cath PRN 50 mg potassium chloride Effient x1 now. Recheck potassium in a.m. ID: All cultures negative thus far with the exception of 1 blood culture on 08/17 growing staph epidermidis (contaminant); continue to observe off antibiotics Endocrine: SSI as needed to maintain euglycemia Heme: Normocytic anemia Thrombocytosis Documentation of prior possible right subclavian occlusion -negative Doppler Bilateral cephalic occlusive and nonocclusive superficial venous thrombosis Currently on enoxaparin 40 mg subcu daily for. Consider reimaging in 1 week to see if basilic vein affected MSK: Diffuse idiopathic skeletal hyperostosis drug rash possible DRESS Resolving PT/OT Prophylaxis: -Famotidine -SCDs, enoxaparin Level 2 follow-up Code Status: Full code
[2018-08-27] MEDS: Potassium Chloride 25 MEQ Effervescent Tablet PO PRN (10:00)
[2018-08-27] MEDS: Lisinopril 10 MG Tablet PO SCH ×2 (10:14→20:33)
--- NOTE | 2018-08-27 12:52 | P.PNREH ---
Subjective Interval history: Resting comfortably in bed. Trach with T-piece. Sedated. Review of Systems unobtainable due to mental status, other (Trach with T-piece) Exam - Physical Examination Vital Signs / I&O: Vital Signs 08/26/18 13:00 08/26/18 14:00 08/26/18 15:00 Temperature Pulse Rate 72 75 68 Respiratory Rate 22 16 14 Blood Pressure 118/64 118/60 93/51 L Pulse Oximetry 95 96 97 08/26/18 15:24 08/26/18 16:00 08/26/18 17:00 Temperature 97.5 F L Pulse Rate 64 63 69 Respiratory Rate 14 15 13 Blood Pressure 90/52 L 148/75 H Pulse Oximetry 95 98 08/26/18 18:00 08/26/18 18:35 08/26/18 19:00 Temperature Pulse Rate 66 66 66 Respiratory Rate 15 14 12 Blood Pressure 127/70 121/66 Pulse Oximetry 97 99 98 08/26/18 19:05 08/26/18 19:35 08/26/18 20:00 Temperature 98 F Pulse Rate 65 60 58 L Respiratory Rate 12 12 12 Blood Pressure 125/70 99/55 L Pulse Oximetry 97 97 97 08/26/18 20:05 08/26/18 20:35 08/26/18 21:00 Temperature Pulse Rate 58 L 57 L 56 L Respiratory Rate 12 11 L 11 L Blood Pressure 103/58 L 106/60 Pulse Oximetry 97 97 97 08/26/18 21:05 08/26/18 21:16 08/26/18 21:17 Temperature Pulse Rate 56 L 56 L Respiratory Rate 11 L 16 Blood Pressure 117/64 Pulse Oximetry 97 98 08/26/18 21:35 08/26/18 22:00 08/26/18 22:05 Temperature Pulse Rate 60 57 L 56 L Respiratory Rate 11 L 12 12 Blood Pressure 94/50 L 85/50 L Pulse Oximetry 95 94 L 94 L 08/26/18 22:35 08/26/18 23:00 08/26/18 23:04 Temperature Pulse Rate 56 L 63 63 Respiratory Rate 13 12 12 Blood Pressure 93/52 L 135/76 135/76 Pulse Oximetry 97 98 98 08/26/18 23:05 08/26/18 23:35 08/26/18 23:40 Temperature Pulse Rate 61 55 L 54 L Respiratory Rate 12 12 13 Blood Pressure 140/80 114/67 Pulse Oximetry 98 98 08/27/18 00:00 08/27/18 00:05 08/27/18 00:35 Temperature 97.8 F Pulse Rate 70 74 69 Respiratory Rate 21 31 H 18 Blood Pressure 142/81 H 152/82 H Pulse Oximetry 99 100 100 08/27/18 01:00 08/27/18 02:00 08/27/18 03:00 Temperature Pulse Rate 72 68 75 Respiratory Rate 14 16 19 Blood Pressure 153/80 H 166/90 H 174/95 H Pulse Oximetry 99 100 97 08/27/18 03:53 08/27/18 04:00 08/27/18 04:24 Temperature 97.5 F L Pulse Rate 74 73 72 Respiratory Rate 22 14 14 Blood Pressure 167/93 H 148/78 H Pulse Oximetry 100 97 08/27/18 05:00 08/27/18 06:00 08/27/18 07:00 Temperature Pulse Rate 69 68 66 Respiratory Rate 16 17 16 Blood Pressure 137/68 109/57 L 127/67 Pulse Oximetry 96 95 96 08/27/18 08:00 08/27/18 08:05 08/27/18 08:08 Temperature 98.9 F Pulse Rate 68 68 Respiratory Rate 17 20 Blood Pressure 145/77 H Pulse Oximetry 97 08/27/18 08:10 08/27/18 08:52 08/27/18 08:53 Temperature Pulse Rate 66 Respiratory Rate 16 Blood Pressure Pulse Oximetry 99 97 08/27/18 09:00 08/27/18 10:00 08/27/18 11:00 Temperature Pulse Rate 66 66 72 Respiratory Rate 17 17 16 Blood Pressure 149/80 H 153/84 H 170/89 H Pulse Oximetry 97 97 97 08/27/18 11:47 08/27/18 12:00 08/27/18 12:25 Temperature 99.0 F Pulse Rate 76 71 Respiratory Rate 16 14 20 Blood Pressure 171/84 H Pulse Oximetry 99 Intake & Output 08/26/18 08/27/18 08/27/18 18:59 06:59 18:59 Intake Total 1095 / 1095 1011 / 1011 Output Total 0 / 0 900 / 900 Balance 1095 / 1095 111 / 111 Weight 86.9 kg Intake: IV 645 / 645 350 / 350 Precedex Inj 1,000 MCG In NS 408 / 408 250 / 250 Inj 240 ML @ 0.2 MCG/KG/HR 5.18 mls/hr IV.CONT TITRATE PRN Rx# :[id number] Versed Inj 100 mg In 100 ml @ 2 90 / 90 100 / 100 MG/HR 2 mls/hr IV.CONT TITRATE PRN Rx#:[id number] fentaNYL 10 mcg/mL Premix Drip 147 / 147 2,500 mcg In 250 ml @ 50 MCG/HR 5 mls/hr IV.SIG TITRATE PRN Rx #:[id number] Tube Feeding 181 / 181 Water Bolus Amount 200 / 200 480 / 480 Other 240 / 240 Output: Urine Amount (Catheter) 0 / 0 900 / 900 Indwelling Urethral Catheter 0 / 0 Straight 900 / 900 Other: Date of Last Bowel Movement 08/26/18 08/25/18 08/25/18 Intake & Output 08/25/18 08/26/18 08/27/18 08/28/18 06:59 06:59 06:59 06:59 Intake Total 2390.2 / 2390.2 2343.2 / 2343.2 2106 / 2106 Output Total 4375 / 4375 5075 / 5075 900 / 900 Balance -1984.8 / -1984.8 -2731.8 / -2731.8 1206 / 1206 Weight 87.4 kg 82 kg 86.9 kg General: Sedated, No acute distress, Other (Trach in place on T-piece) Date of Last Bowel Movement: 08/25/18 Cardiovascular: Normal rate Skin: No rash Musculoskeletal: ROM (Within functional limits) - Neurologic Orientation: unable to assess: Self, Place, Time, Situation Neurologic: Pupils (2 mm and symmetric) Clonus: Negative Objective Laboratory Results - last 24 hr 08/27/18 08/27/18 08/27/18 03:22 03:32 03:32 WBC 7.5 RBC 3.59 L Hgb 11.4 L Hct 33.0 L MCV 92.0 MCH 31.8 MCHC 34.5 RDW 13.7 Plt Count 507 H MPV 7.2 Neut % (Auto) 69.1 Lymph % (Auto) 13.1 [place] % (Auto) 9.8 H Eos % (Auto) 7.1 H Baso % (Auto) 0.9 Neut # (Auto) 5.2 Lymph # (Auto) 1.0 [place] # (Auto) 0.7 Eos # (Auto) 0.5 H Baso # (Auto) 0.1 WBC Differential . Differential Comment Auto diff final Sodium 142 Potassium 3.4 L Chloride 106 Carbon Dioxide 28.3 Anion Gap 8 BUN 12 Creatinine 0.78 Estimated GFR Greater than 89 Random Glucose 100 Calcium 9.5 Phosphorus 4.0 Magnesium 2.1 Total Bilirubin 0.3 AST 16 ALT 18 Alkaline Phosphatase 107 Ammonia Less than 10 L Total Protein 6.7 D Albumin 2.3 L Assessment and Plan (1) Closed C6 fracture Status: Acute Code(s): S12.500A - Unspecified displaced fracture of sixth cervical vertebra, initial encounter for closed fracture Qualifiers: Encounter type: subsequent encounter (2) Altered mental status Status: Acute Code(s): R41.82 - Altered mental status, unspecified - Plan Assessment: 1. Toxic metabolic encephalopathy/change in mental status 2. C6 fracture currently maintained in cervical collar for 6 weeks 3. Status post trach 08/19/18 4. Status post PEG 08/20/18 4. Hypertension Recommendations: 1. PT providing ROM and max assist for bed mobility. Continue to mobilize as tolerated 2. OT addressing ROM and progress to ADL's 3. Continue to reposition q 2 hours and monitor skin 4. On SQ Heparin for VTE prophylaxis 5. Case management addressing discharge planning. Applying for payor source through [employer]. Will follow regarding level of care 6. Will continue to follow while hospitalized and at discharge as appropriate
--- NOTE | 2018-08-27 19:16 | P.PN ---
Subjective Interval history: Presently awake but lethargic. On T-bar at 28% FiO2. Trach secretions are brownish. Still on IV sedation including Precedex and fentanyl. Urine output remains good. Physical Exam Vital signs: Vital Signs 08/26/18 19:35 08/26/18 20:00 08/26/18 20:05 Temperature 98 F Pulse Rate 60 58 L 58 L Respiratory Rate 12 12 12 Blood Pressure 99/55 L 103/58 L Pulse Oximetry 97 97 97 08/26/18 20:35 08/26/18 21:00 08/26/18 21:05 Temperature Pulse Rate 57 L 56 L 56 L Respiratory Rate 11 L 11 L 11 L Blood Pressure 106/60 117/64 Pulse Oximetry 97 97 97 08/26/18 21:16 08/26/18 21:17 08/26/18 21:35 Temperature Pulse Rate 56 L 60 Respiratory Rate 16 11 L Blood Pressure 94/50 L Pulse Oximetry 98 95 08/26/18 22:00 08/26/18 22:05 08/26/18 22:35 Temperature Pulse Rate 57 L 56 L 56 L Respiratory Rate 12 12 13 Blood Pressure 85/50 L 93/52 L Pulse Oximetry 94 L 94 L 97 08/26/18 23:00 08/26/18 23:04 08/26/18 23:05 Temperature Pulse Rate 63 63 61 Respiratory Rate 12 12 12 Blood Pressure 135/76 135/76 140/80 Pulse Oximetry 98 98 98 08/26/18 23:35 08/26/18 23:40 08/27/18 00:00 Temperature 97.8 F Pulse Rate 55 L 54 L 70 Respiratory Rate 12 13 21 Blood Pressure 114/67 Pulse Oximetry 98 99 08/27/18 00:05 08/27/18 00:35 08/27/18 01:00 Temperature Pulse Rate 74 69 72 Respiratory Rate 31 H 18 14 Blood Pressure 142/81 H 152/82 H 153/80 H Pulse Oximetry 100 100 99 08/27/18 02:00 08/27/18 03:00 08/27/18 03:53 Temperature Pulse Rate 68 75 74 Respiratory Rate 16 19 22 Blood Pressure 166/90 H 174/95 H Pulse Oximetry 100 97 08/27/18 04:00 08/27/18 04:24 08/27/18 05:00 Temperature 97.5 F L Pulse Rate 73 72 69 Respiratory Rate 14 14 16 Blood Pressure 167/93 H 148/78 H 137/68 Pulse Oximetry 100 97 96 08/27/18 06:00 08/27/18 07:00 08/27/18 08:00 Temperature 98.9 F Pulse Rate 68 66 68 Respiratory Rate 17 16 17 Blood Pressure 109/57 L 127/67 145/77 H Pulse Oximetry 95 96 97 08/27/18 08:05 08/27/18 08:08 08/27/18 08:10 Temperature Pulse Rate 68 Respiratory Rate 20 Blood Pressure Pulse Oximetry 99 08/27/18 08:52 08/27/18 08:53 08/27/18 09:00 Temperature Pulse Rate 66 66 Respiratory Rate 16 17 Blood Pressure 149/80 H Pulse Oximetry 97 97 08/27/18 10:00 08/27/18 11:00 08/27/18 11:47 Temperature Pulse Rate 66 72 76 Respiratory Rate 17 16 16 Blood Pressure 153/84 H 170/89 H Pulse Oximetry 97 97 08/27/18 12:00 08/27/18 12:25 08/27/18 13:00 Temperature 99.0 F Pulse Rate 71 64 Respiratory Rate 14 20 15 Blood Pressure 171/84 H 146/79 H Pulse Oximetry 99 97 08/27/18 14:00 08/27/18 15:00 08/27/18 16:00 Temperature 98.9 F Pulse Rate 61 60 60 Respiratory Rate 16 13 15 Blood Pressure 108/62 131/68 114/70 Pulse Oximetry 97 98 98 08/27/18 16:09 08/27/18 17:00 08/27/18 18:00 Temperature Pulse Rate 61 60 Respiratory Rate 21 15 17 Blood Pressure 144/78 H 125/72 Pulse Oximetry 99 98 Intake & Output 08/27/18 08/27/18 08/28/18 06:59 18:59 06:59 Intake Total 1011 / 1011 647 / 647 Output Total 900 / 900 1150 / 1150 Balance 111 / 111 -503 / -503 Weight 86.9 kg Intake: IV 350 / 350 Precedex Inj 1,000 MCG In NS 250 / 250 Inj 240 ML @ 0.2 MCG/KG/HR 5.18 mls/hr IV.CONT TITRATE PRN Rx# :[id number] Versed Inj 100 mg In 100 ml @ 2 100 / 100 MG/HR 2 mls/hr IV.CONT TITRATE PRN Rx#:[id number] Tube Feeding 181 / 181 347 / 347 Tube Irrigant 100 / 100 Water Bolus Amount 480 / 480 200 / 200 Output: Urine Amount (Catheter) 900 / 900 1150 / 1150 Straight 900 / 900 1150 / 1150 Other: Date of Last Bowel Movement 08/25/18 08/25/18 Narrative: GENERAL: Mid aged W/M on a T Tube with trach in place SKIN: Warm and dry. HEAD: Atraumatic. Normocephalic. EYES: Pupils equal and round. No scleral icterus. Mild injection no drainage. ENT: No nasal bleeding or discharge. Mucous membranes pink and moist. NECK: Trachea midline. No JVD. Trach tube in place CARDIOVASCULAR: Regular rate and rhythm. RESPIRATORY: No accessory muscle use. Occasional wheezes anteriorly. Breath sounds equal bilaterally. GASTROINTESTINAL: Abdomen soft, non-tender, nondistended. Hepatic and splenic margins not palpable. MUSCULOSKELETAL: Extremities without clubbing, cyanosis, or edema. No obvious deformities. NEUROLOGICAL: Lethargic. Restless at times. - Urinary Catheter Management Indwelling Urethral Catheter Cath placed during this visit: yes, but has since been removed by the nurse Reason for continuing: Decision to DC catheter Insertion date: 08/17/18 Insertion time: 18:30 Removal date: 08/26/18 Removal time: 06:30 Condom Cath placed during this visit: no Reason for continuing: Not indwelling catheter Straight Cath placed during this visit: yes Reason for continuing: Acute urinary retention Insertion date: 08/17/18 Insertion time: 10:30 Results - Labs CBC & Chem 7: 08/27/18 03:32 08/27/18 03:22 Laboratory Results - last 24 hr 08/27/18 08/27/18 08/27/18 03:22 03:32 03:32 WBC 7.5 RBC 3.59 L Hgb 11.4 L Hct 33.0 L MCV 92.0 MCH 31.8 MCHC 34.5 RDW 13.7 Plt Count 507 H MPV 7.2 Neut % (Auto) 69.1 Lymph % (Auto) 13.1 [place] % (Auto) 9.8 H Eos % (Auto) 7.1 H Baso % (Auto) 0.9 Neut # (Auto) 5.2 Lymph # (Auto) 1.0 [place] # (Auto) 0.7 Eos # (Auto) 0.5 H Baso # (Auto) 0.1 WBC Differential . Differential Comment Auto diff final Sodium 142 Potassium 3.4 L Chloride 106 Carbon Dioxide 28.3 Anion Gap 8 BUN 12 Creatinine 0.78 Estimated GFR Greater than 89 Random Glucose 100 Calcium 9.5 Phosphorus 4.0 Magnesium 2.1 Total Bilirubin 0.3 AST 16 ALT 18 Alkaline Phosphatase 107 Ammonia Less than 10 L Total Protein 6.7 D Albumin 2.3 L - Imaging Impressions Chest X-Ray 08/27/18 06:00 CONCLUSION: Unchanged bibasilar infiltrates with tiny left effusion. Assessment and Plan - Assessment (1) Respiratory failure requiring intubation Code(s): J96.90 - Respiratory failure, unspecified, unspecified whether with hypoxia or hypercapnia Status: Acute (2) Pneumonia Code(s): J18.9 - Pneumonia, unspecified organism Status: Acute (3) Seizure Code(s): R56.9 - Unspecified convulsions Status: Acute (4) Hypertensive urgency Code(s): I16.0 - Hypertensive urgency Status: Acute (5) Alcohol intoxication Code(s): F10.929 - Alcohol use, unspecified with intoxication, unspecified Status: Acute (6) Altered mental status Code(s): R41.82 - Altered mental status, unspecified Status: Acute (7) Delirium due to general medical condition Code(s): F05 - Delirium due to known physiological condition Status: Acute - Plan 1. Cont T bar as tolerated FIO2 28 % 2. Reduce sedation. 3. Trach lavage and Suction.PRN 4. Continue Duoneb nebs Q6H 5. CBC, BMP in am 6. Tube feeds at 40 CC 7. Continue Seroquel 150 mg 3 times daily 8. Antibiotics as ordered. 9. Wean off drips
[2018-08-28] MEDS: Oral Hygiene Kit OROPHARYNG SCH ×5 (00:19→23:27)
[2018-08-28] MEDS: chlordiazePOXIDE 25 MG Capsule PO SCH ×3 (03:59→21:26)
[2018-08-28 04:00] LABS: Baso % (Auto) 0.6 % (0.0-2.0); Eos # (Auto) 0.6 th/mm3 (0.0-0.4); Eos % (Auto) 7.6 % (0.0-4.0); Hematocrit 33.7 % (39.0-51.0); Hemoglobin 11.2 gm/dL (13.0-17.0); Lymph # (Auto) 1.1 th/mm3 (1.0-4.8); Lymph % (Auto) 14.7 % (9.0-44.0); Mean Corpuscular HGB Conc 33.2 % (32.0-36.0); Mean Corpuscular Hemoglobin 30.3 pg (27.0-34.0); Mean Corpuscular Volume 91.2 fL (80.0-100.0); Mean Platelet Volume 7.2 fL (7.0-11.0); Mono # (Auto) 0.7 th/mm3 (0.0-0.9); Mono % (Auto) 9.2 % (0.0-8.0); Neut # (Auto) 5.2 th/mm3 (1.8-7.7); Neut % (Auto) 67.9 % (16.0-70.0); Platelet Count 536 th/mm3 (150-450); Red Cell Distribution Width 13.6 % (11.6-17.2); White Blood Count 7.7 th/mm3 (4.0-11.0)
[2018-08-28 04:26] LABS: Anion Gap 6 meq/L (5-15); Blood Urea Nitrogen 11 mg/dL (7-18); Calcium 9.2 mg/dL (8.5-10.1); Carbon Dioxide 28.6 meq/L (21.0-32.0); Chloride 110 meq/L (98-107); Glomerular Filtration Rate Greater Than 89 mL/min (>89); Glucose,Random 94 mg/dL (74-106); Magnesium 2.1 mg/dL (1.5-2.5); Phosphorus 3.8 mg/dL (2.5-4.9); Potassium 3.6 meq/L (3.5-5.1); Sodium 145 meq/L (136-145); Valproic Acid 39 mcg/mL (50-100)
[2018-08-28] MEDS: Baclofen 10 MG Tablet PO SCH ×3 (05:39→21:26)
--- NOTE | 2018-08-28 08:14 | P.PNNPSY ---
- Progress Notes/Response to Treatment Contents of Sessions: Adjustment, Level of consciousness Time with Patient: 30 minutes Premorbid Psychological Status: Premorbid Cognitive, Emotional and Behavioral Status: Tenuous. The patient has high school years of education and a sporadic work history prior to this injury. The patient has possible prior psychiatric difficulties, as described above. Substance abuse history includes ETOH. Behavioral Reactions of Patient and Family/Support System: Tenuous. The patients family is experiencing ongoing issues of adjustment given the nature of the injury, and this aspect of recovery will require ongoing monitoring. Emotional/Behavioral Status of Patient and Family/Support System: Tenuous. Pertinent issues, if appropriate to this patients clinical care, are described in detail above. Maximizing Acute Care Outcome: The patient is presently managed on Seroquel 50 BID and VPA 250 BID and Librium and Versed. Consider increasing Seroquel to 75/75/100 and VPA to 250 TID, with a PRN Haldol, with goal of bringing agitation/restlessness down to below a total score of 21 on all subscores of the ABS, and so we can d/c benzo's which may be contributing to his agitation/confusion. Presently he is at 24.5 on the disinhibition subscore. He is generally past BEREKET at this point, successfully managed throughout his critical care treatment thus far. Promote as normal as possible sleep wake cycle, and 100 HS of Seroquel may assist in this endeavor. At this point in the recovery process, the patient does not have cognitive capacity as the patient is unable to understand a situation and its likely consequences, nor is the patient able to manipulate information rationally. Cognitive capacity will be assessed throughout the recovery process. Anticipated Problems: Ongoing areas of concern will include behavioral impulsivity, lack of insight and judgment, which is expected to improve with time and treatment. Treatment Plan: This clinician will continue to follow with you throughout the course of this patients critical care treatment, and I will be available to meet with the patients family/support system to facilitate their understanding and the ongoing care of their family member. The goals of neuropsychological intervention shall be both educational and supportive to the family/support system as is deemed clinically appropriate. 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 Progress Note Narrative: PTD 19. The patient is resting comfortably. Agitation/restlessness has diminished greatly. Critical intensivisits increased Seroquel to 150 TID and additionally has VPA 250 TID. Librium is d/c'ed and he has a PRN Haldol that has not bee needed. ABS = 14 (14,14,14), down from 19T yesterday. I will follow. - Diagnosis (1) Delirium due to general medical condition Status: Acute
[2018-08-28] MEDS: Chlorhexidine 0.12% Oral Kit 15 ML UDC OROPHARYNG SCH ×2 (08:32→21:25)
--- NOTE | 2018-08-28 09:09 | P.PNCC ---
Subjective Subjective Remarks/Hospital Course: 08/09: 58-year-old male who was found down in his friend's garage this morning. He has a history of alcohol abuse. He recently sold his house and was staying at a friend's home. Reportedly he was due to fly later today. Patient was brought to the ER by EMS and was noted to have involuntary movements with jerking movements involving upper and lower extremities as well as his head. He received Ativan 3 mg IV and was loaded with Keppra. Initially stroke alert was called. Head CT was negative for any bleed however there was question of C6 fracture. Neurology and neurosurgery were consulted. Patient was loaded with IV Cerebyx and Vimpat by neurology. He had a [place] J collar placed after placing hard cervical collar by neurosurgery. When I evaluated the patient in the ER he was still having involuntary movements which appeared to be episodic with occasional twitchings on his face and nystagmus. This did not appear to be generalized tonic-clonic convulsions however appeared more like an extrapyramidal reaction. I ordered a stat EEG. Patient moving around too much to obtain MRI at this time. His urine tox screen was negative. He was positive for alcohol. Patient nonverbal. His involuntary movements get exaggerated on stimulation. He was reportedly completely normal yesterday. 08/10: Patient had an episode of emesis last night followed by labored breathing. He continued to have involuntary movements. He was intubated and placed on mechanical ventilation. Currently sedated with propofol, orally intubated on mechanical ventilation. Awaiting MRI brain and C-spine. EEG done yesterday did not show any seizure activity. 08/11: Sedated, orally intubated on mechanical ventilation. MRI brain unremarkable. MRI C-spine with hairline C6 fracture with no displacement. 08/12: Remains sedated, orally intubated on mechanical ventilation. Reintubated yesterday for significant hypoxia and respiratory distress with O2 sats dropping to the 70s despite nonrebreather facemask. CT pulmonary angiogram was negative for PE and showed bilateral infiltrates at the bases. 08/13: Remains sedated, orally intubated on mechanical ventilation. On propofol /fentanyl GTT. Starting tube feeds 08/14: T-max 99.4. Currently 98.3. Scheduled for IR for lumbar puncture today. Patient acute injury. Patient is on vancomycin, acyclovir and did receive IV contrast recently. Renal ultrasound ordered. Urine eosinophils, sodium and creatinine ordered. Arousable and does follow commands on the ventilator. Breakthrough agitation/involuntary systemic movements noted 08/15: Plan for lumbar puncture today. Will likely try sedation vacation overnight. See 4 mg of midazolam overnight due to agitation. Appears comfortable. Intermittently follows commands. 08/16: Lumbar puncture from yesterday accomplished. We will try sedation vacation again today and tried on dexmedetomidine drip. Rash is much improved. Discontinued lacosamide possible source of rash. Remains leukopenic and elevated eosinophils. 08/17: Low-grade fevers overnight. Blood cultures x2, sputum performed. Will start on piperacillin/tazobactam vancomycin. Extubated today. Tolerated about 2 hours but became hypoxic on 100% nonrebreather and tachypneic. Intubated with axial traction. Will need tracheostomy has failed extubation x2 08/18: T-max 100.1. Failed extubation requiring reintubation. Tracheostomy planned for 10 AM today. 08/19: Afebrile overnight. Chest x-ray following tracheostomy demonstrates tube in good position safely above the tory. Basilar infiltrates persist but clearing. On spontaneous breathing trial earlier today he had apneic episodes. With no sedation he becomes extremely agitated however. 08/20: Percutaneous gastrostomy tube plan for today. Very agitated. Remains on clevidipine drip. 08/21: Status post percutaneous gastrostomy tube 08/20. Some distention. Currently drainage. Will check KUB. Very agitated requiring midazolam drip. We will consult neuropsychology for assistance. 08/22: Low-grade fevers overnight. Remains on multiple sedatives. Adjusted increased valproic acid and quetiapine yesterday per neuropsychiatrist rec. On trickle feeds. 08/23: T-max 99.8. Currently afebrile. We will discontinue antibiotics today. Did not require held overnight. We will advance tube feeds to goal. Positive BM. Interactive weakly. 08/24: Patient continues to follow commands but appears to be confused at times. He lifts his right leg when asked to move the left leg. He can internally rotate his right arm but does not lift against gravity. Analgesia and Versed sedation required for vent synchrony and to remain calm during T- piece trials. 08/25: Patient tolerating T piece trials, remains agitated while stimulated. Follows commands. No acute distress. 08/26: Afebrile. Tolerating tube feeds times 24 hours. Remains on midazolam, fentanyl and dexmedetomidine drips. Positive BM. 700 cc residuals. Currently metoclopramide will add erythromycin base. KUB ordered. Positive diarrhea. Subjective 08/27: Afebrile. Afebrile. Currently on fentanyl drip at 50 william grams an hour and dexmedetomidine drip at 1.3 mcg/kg/h. Midazolam drip is off. Positive BM . Tube feeds at 30 cc an hour 08/28: Resting comfortably. On T-piece. On Precedex 0.3, fentanyl 20 mics per hour. Tolerating tube feeds via PEG Objective Vital Signs / I&O: Vital Signs 08/27/18 10:00 08/27/18 11:00 08/27/18 11:47 Temperature Pulse Rate 66 72 76 Respiratory Rate 17 16 16 Blood Pressure 153/84 H 170/89 H Pulse Oximetry 97 97 08/27/18 12:00 08/27/18 12:25 08/27/18 13:00 Temperature 99.0 F Pulse Rate 71 64 Respiratory Rate 14 20 15 Blood Pressure 171/84 H 146/79 H Pulse Oximetry 99 97 08/27/18 14:00 08/27/18 15:00 08/27/18 16:00 Temperature 98.9 F Pulse Rate 61 60 60 Respiratory Rate 16 13 15 Blood Pressure 108/62 131/68 114/70 Pulse Oximetry 97 98 98 08/27/18 16:09 08/27/18 17:00 08/27/18 18:00 Temperature Pulse Rate 61 60 Respiratory Rate 21 15 17 Blood Pressure 144/78 H 125/72 Pulse Oximetry 99 98 08/27/18 19:00 08/27/18 20:00 08/27/18 21:00 Temperature 98 F Pulse Rate 69 68 63 Respiratory Rate 21 19 13 Blood Pressure 146/76 H 103/58 L 109/62 Pulse Oximetry 99 99 100 08/27/18 22:00 08/27/18 23:00 08/28/18 00:00 Temperature 98.2 F Pulse Rate 62 70 65 Respiratory Rate 14 18 19 Blood Pressure 123/70 150/76 H 110/61 Pulse Oximetry 100 98 97 08/28/18 00:31 08/28/18 01:00 08/28/18 02:00 Temperature Pulse Rate 65 64 65 Respiratory Rate 24 16 13 Blood Pressure 117/62 136/70 Pulse Oximetry 98 99 08/28/18 03:00 08/28/18 04:00 08/28/18 05:00 Temperature 98.9 F Pulse Rate 65 65 64 Respiratory Rate 21 25 H 23 Blood Pressure 115/60 117/60 118/63 Pulse Oximetry 99 98 97 08/28/18 06:00 08/28/18 07:00 08/28/18 08:00 Temperature 98.8 F Pulse Rate 75 72 69 Respiratory Rate 36 H 18 20 Blood Pressure 156/88 H 109/56 L 107/56 L Pulse Oximetry 95 100 99 08/28/18 08:25 08/28/18 08:51 08/28/18 08:57 Temperature Pulse Rate 68 67 Respiratory Rate 17 Blood Pressure Pulse Oximetry 100 100 Intake & Output 08/27/18 08/28/18 08/28/18 18:59 06:59 18:59 Intake Total 897 / 897 1114 / 1114 Output Total 1150 / 1150 950 / 950 Balance -253 / -253 164 / 164 Weight 83.8 kg Intake: IV 250 / 250 176 / 176 Precedex Inj 1,000 MCG In NS 250 / 250 126 / 126 Inj 240 ML @ 0.2 MCG/KG/HR 5.18 mls/hr IV.CONT TITRATE PRN Rx# :[id number] fentaNYL 10 mcg/mL Premix Drip 50 / 50 2,500 mcg In 250 ml @ 50 MCG/HR 5 mls/hr IV.SIG TITRATE PRN Rx #:[id number] Tube Feeding 347 / 347 438 / 438 Tube Irrigant 100 / 100 Water Bolus Amount 200 / 200 500 / 500 Output: Urine Amount (Catheter) 1150 / 1150 950 / 950 Straight 1150 / 1150 950 / 950 Other: Date of Last Bowel Movement 08/25/18 08/28/18 08/28/18 # Bowel Movements 1 # Incontinent Bowel Movements 1 Result Diagrams: 08/28/18 02:59 08/28/18 02:59 Objective Remarks: GEN: 58-year-old male currently on T-piece HEENT: Mucosa moist and pink NECK: Tracheostomy present, clean/ dry/ intact. [place] J collar in place. CARDIO: Regular rate and rhythm. S1, S2. No S4. PULM: Remains on T-piece. Few crackles in the bases. No wheezing. ABD/GI: PEG present, clean/ dry/ intact, non-tender in all quadrants EXT/MSK: No peripheral edema SKIN: Warm and well-perfused, no rashes or lesions NEURO: Drowsy, sedated, easily arousable, moves all 4 extremities spontaneously. PSYCH: Calm, no current agitation Assessment and Plan - Assessment and Plan Plan: Neuro/Psych: Acute toxic metabolic encephalopathy Involuntary movements -EEG 08/09- for epileptiform activity Anterior C6 fracture -[place] J collar times 6 weeks EtOH abuse/withdrawal On Precedex 0.3 mics per KG per hour, fentanyl 20 mics per hr. plan on titrating off today using Haldol as needed for agitation Currently on chlordiazepoxide 50 mg 3 times daily, Quetiapine 150 mg 3 times daily, valproic acid 250 mg 3 times daily and oxycodone 10 mg every 4 hours and attempt to wean Start baclofen 10 mg 3 times daily As needed haloperidol 5 mg every 6 hours for breakthrough agitation MRI C-spine nondisplaced C6 fracture, continue [place] J collar for 6 weeks per neurosurgery, moving all extremities spontaneously Discontinued lacosamide 100 mg IV twice daily secondary to rash-- allergies updated Continue supplementation with thiamine, folic acid and multivitamin Neuropsychiatry recommendations appreciated Acetaminophen 650 by tube every 6 hours as needed fever Cardiovascular: Hypertensive emergency Dyslipidemia Continues to have profound hypertension despite multiple meds via IV and PEG Currently on carvedilol 25 mg 3 times daily, amlodipine 10 mg daily isosorbide dinitrate 20 mg 3 times daily and hydralazine 100 mg 3 times daily. Decrease lisinopril to 10 mg twice daily As needed clevidipine drip for breakthrough hypertension Abdominal US on 08/14 showed mild hydronephrosis but no other obvious renal cause of HTN Currently on pravastatin 40 mg at night Continue ASA 81 mg daily Pulmonary: Acute hypoxic hypercapnic respiratory failure Status post percutaneous tracheostomy 08/[address] Senia Kim trials, allow to stay on T piece as long as he tolerates and rest on CPAP PRN Vent bundle Albuterol/ipratropium every 4 hours scheduled with albuterol aerosols every 2 hours as needed dyspnea Bilateral cephalic DVTs, no PE on CTA chest Pulm recs appreciated GI/liver: Elevated transaminases downward trending Hypoalbuminemia with moderate protein calorie malnutrition Status post PEG by Dr. Jensen 1/2 Ileus Tube feeding with Jevity 1.5 goal 60 cc an hour Famotidine 20 mg IV twice daily for GI prophylaxis Bowel regimen with docusate sodium 100 mg twice daily, polythene glycol centigrams and lactulose 30 cc twice daily Metoclopramide 5 mg 3 times daily stop date 08/27 and erythromycin base 250 mg 3 times daily until 08/31 as prokinetic high residuals methylnaltrexone x1 DB revealed no large and small bowel ileus. Negative hepatitis panel FEN/renal/: Acute kidney injury- resolved Hypokalemia Urinary retention with mild bilateral hydronephrosis IV hydration, strict intake output, monitor and replete electrolytes, follow BUN /creatinine. Attempt trial of void with scheduled straight cath PRN 50 mg potassium chloride Effient x1 now. Recheck potassium in a.m. ID: All cultures negative thus far with the exception of 1 blood culture on 08/17 growing staph epidermidis (contaminant); continue to observe off antibiotics Endocrine: SSI as needed to maintain euglycemia Heme: Normocytic anemia Thrombocytosis Documentation of prior possible right subclavian occlusion -negative Doppler Bilateral cephalic occlusive and nonocclusive superficial venous thrombosis Currently on enoxaparin 40 mg subcu daily for. Consider reimaging in 1 week to see if basilic vein affected MSK: Diffuse idiopathic skeletal hyperostosis drug rash possible DRESS Resolving PT/OT Prophylaxis: -Famotidine -SCDs, enoxaparin Level 2 follow-up
[2018-08-28] MEDS: Docusate Sodium Liq 100 MG/10 ML UDC G-TUBE SCH ×2 (09:32→21:26)
[2018-08-28] MEDS: Lisinopril 10 MG Tablet PO SCH ×2 (09:33→21:27)
[2018-08-28] MEDS: Folic Acid 1 MG Tablet PO SCH (09:34)
[2018-08-28] MEDS: Carvedilol 12.5 MG Tablet PO SCH ×2 (09:34→21:26)
[2018-08-28] MEDS: QUEtiapine 100 MG Tablet PO SCH ×3 (09:34→19:03)
[2018-08-28] MEDS: amLODIPine 5 MG Tablet PO SCH (09:34)
[2018-08-28] MEDS: Enoxaparin Inj 40 MG/0.4 ML Syringe SQ SCH (09:35)
[2018-08-28] MEDS: Famotidine PF Inj 20 MG/2 ML Vial IV.PUSH SCH ×2 (09:35→21:26)
[2018-08-28] MEDS: Beneprotein Powder Packet G-TUBE SCH ×3 (09:35→19:04)
[2018-08-28] MEDS: Polyethylene Glycol 3350 17 GM Packet PO SCH (09:35)
--- NOTE | 2018-08-28 19:25 | P.PN ---
Subjective Interval history: He is calmer and on a T bar.FIo2 at 30% Trach site clear. On seroquel and on Precedex drip. Physical Exam Vital signs: Vital Signs 08/27/18 20:00 08/27/18 21:00 08/27/18 22:00 Temperature 98 F Pulse Rate 68 63 62 Respiratory Rate 19 13 14 Blood Pressure 103/58 L 109/62 123/70 Pulse Oximetry 99 100 100 08/27/18 23:00 08/28/18 00:00 08/28/18 00:31 Temperature 98.2 F Pulse Rate 70 65 65 Respiratory Rate 18 19 24 Blood Pressure 150/76 H 110/61 Pulse Oximetry 98 97 08/28/18 01:00 08/28/18 02:00 08/28/18 03:00 Temperature Pulse Rate 64 65 65 Respiratory Rate 16 13 21 Blood Pressure 117/62 136/70 115/60 Pulse Oximetry 98 99 99 08/28/18 04:00 08/28/18 05:00 08/28/18 06:00 Temperature 98.9 F Pulse Rate 65 64 75 Respiratory Rate 25 H 23 36 H Blood Pressure 117/60 118/63 156/88 H Pulse Oximetry 98 97 95 08/28/18 07:00 08/28/18 08:00 08/28/18 08:25 Temperature 98.8 F Pulse Rate 72 69 68 Respiratory Rate 18 20 17 Blood Pressure 109/56 L 107/56 L Pulse Oximetry 100 99 100 08/28/18 08:51 08/28/18 08:57 08/28/18 09:00 Temperature Pulse Rate 67 68 Respiratory Rate 23 Blood Pressure 118/59 L Pulse Oximetry 100 98 08/28/18 10:00 08/28/18 10:20 08/28/18 11:00 Temperature Pulse Rate 68 75 74 Respiratory Rate 22 24 15 Blood Pressure 150/71 H 101/55 L Pulse Oximetry 97 99 98 08/28/18 11:16 08/28/18 12:00 08/28/18 13:00 Temperature Pulse Rate 73 73 78 Respiratory Rate 17 15 18 Blood Pressure 100/54 L 129/60 Pulse Oximetry 99 98 08/28/18 14:00 08/28/18 15:00 08/28/18 15:48 Temperature Pulse Rate 82 82 88 Respiratory Rate 26 H 24 17 Blood Pressure 146/74 H 154/74 H Pulse Oximetry 100 100 01/10/19 16:00 08/28/18 17:00 08/28/18 18:00 Temperature 98.7 F Pulse Rate 88 85 85 Respiratory Rate 24 23 22 Blood Pressure 143/67 H 151/71 H 158/77 H Pulse Oximetry 100 100 96 Intake & Output 08/28/18 08/28/18 08/29/18 06:59 18:59 06:59 Intake Total 1114 / 1114 821 / 821 Output Total 950 / 950 700 / 700 Balance 164 / 164 121 / 121 Weight 83.8 kg Intake: IV 176 / 176 124 / 124 Precedex Inj 1,000 MCG In NS 126 / 126 124 / 124 Inj 240 ML @ 0.2 MCG/KG/HR 5.18 mls/hr IV.CONT TITRATE PRN Rx# :[id number] fentaNYL 10 mcg/mL Premix Drip 50 / 50 2,500 mcg In 250 ml @ 50 MCG/HR 5 mls/hr IV.SIG TITRATE PRN Rx #:[id number] Tube Feeding 438 / 438 447 / 447 Tube Irrigant 50 / 50 Water Bolus Amount 500 / 500 200 / 200 Output: Urine Amount (Catheter) 950 / 950 700 / 700 Indwelling Urethral Catheter 700 / 700 Straight 950 / 950 Other: Date of Last Bowel Movement 08/28/18 08/28/18 # Bowel Movements 1 1 # Incontinent Bowel Movements 1 Narrative: GENERAL: Mid aged W/M on a T Tube with trach in place SKIN: Warm and dry. HEAD: Atraumatic. Normocephalic. EYES: Pupils equal and round. No scleral icterus. no drainage. ENT: No nasal bleeding or discharge. Mucous membranes pink and moist. NECK: Trachea midline. No JVD. Trach tube in place CARDIOVASCULAR: Regular rate and rhythm. RESPIRATORY: No accessory muscle use. Occasional wheezes anteriorly. Breath sounds equal bilaterally. GASTROINTESTINAL: Abdomen soft, non-tender, nondistended. Hepatic and splenic margins not palpable. MUSCULOSKELETAL: Extremities without clubbing, cyanosis, or edema. No obvious deformities. NEUROLOGICAL: Lethargic. moves all. - Urinary Catheter Management Indwelling Urethral Catheter Cath placed during this visit: yes, but has since been removed by the nurse Reason for continuing: Decision to DC catheter Insertion date: 08/17/18 Insertion time: 18:30 Removal date: 08/26/18 Removal time: 06:30 Condom Cath placed during this visit: no Reason for continuing: Not indwelling catheter Straight Cath placed during this visit: yes Reason for continuing: Chronic Urinary Retention Insertion date: 08/28/18 Insertion time: 08:00 Results - Labs CBC & Chem 7: 08/28/18 02:59 08/28/18 02:59 Laboratory Results - last 24 hr 08/28/18 08/28/18 02:59 02:59 WBC 7.7 RBC 3.70 L Hgb 11.2 L Hct 33.7 L MCV 91.2 MCH 30.3 MCHC 33.2 RDW 13.6 Plt Count 536 H MPV 7.2 Neut % (Auto) 67.9 Lymph % (Auto) 14.7 [place] % (Auto) 9.2 H Eos % (Auto) 7.6 H Baso % (Auto) 0.6 Neut # (Auto) 5.2 Lymph # (Auto) 1.1 [place] # (Auto) 0.7 Eos # (Auto) 0.6 H Baso # (Auto) 0.0 WBC Differential . Differential Comment Auto diff final Sodium 145 Potassium 3.6 Chloride 110 H Carbon Dioxide 28.6 Anion Gap 6 BUN 11 Creatinine 0.79 Estimated GFR Greater than 89 Random Glucose 94 Calcium 9.2 Phosphorus 3.8 Magnesium 2.1 Valproic Acid 39 L Assessment and Plan - Assessment (1) Respiratory failure requiring intubation Code(s): J96.90 - Respiratory failure, unspecified, unspecified whether with hypoxia or hypercapnia Status: Acute (2) Pneumonia Code(s): J18.9 - Pneumonia, unspecified organism Status: Acute (3) Seizure Code(s): R56.9 - Unspecified convulsions Status: Acute (4) Hypertensive urgency Code(s): I16.0 - Hypertensive urgency Status: Acute (5) Alcohol intoxication Code(s): F10.929 - Alcohol use, unspecified with intoxication, unspecified Status: Acute (6) Altered mental status Code(s): R41.82 - Altered mental status, unspecified Status: Acute (7) Delirium due to general medical condition Code(s): F05 - Delirium due to known physiological condition Status: Acute - Plan 1. Cont T bar as tolerated FIO2 28 % 2. Reduce sedation. 3. Trach lavage and Suction.PRN 4. Continue Duoneb nebs Q6H 5. CXR BMP in am 6. Tube feeds at 50 CC 7. Continue Seroquel 100 mg 3 times daily 8. Antibiotics as ordered. 9. Wean off drips
[2018-08-29] MEDS: chlordiazePOXIDE 25 MG Capsule PO SCH ×3 (04:01→20:56)
[2018-08-29] MEDS: Oral Hygiene Kit OROPHARYNG SCH ×3 (04:02→16:07)
--- NOTE | 2018-08-29 04:10 | XR ---
EXAM DATE: 08/29/2018 3:54 AM EST AGE/SEX: 58 years / Male INDICATIONS: Infiltrate. CLINICAL DATA: This is the patient's subsequent encounter. Patient reports that signs and symptoms h ave been present for 2 weeks and indicates a pain score of Nonresponsive. MEDICAL/SURGICAL HISTORY: Hypertension. None. COMPARISON: [facility] – [place]ST 1V SINGLE AP, 08/27/2018. . FINDINGS: Portable AP view of the chest demonstrates a normal-sized cardiac silhouette. Tracheostomy overlies t he tracheal air shadow. EKG lines overlie the patient. Lungs are underinflated. There are bibasilar o pacities with obscuration the left hemidiaphragm. No pneumothorax is identified. Bones and soft tissu es demonstrate no acute finding. CONCLUSION: Stable chest x-ray with bibasilar airspace opacity, left greater than right. Electronically signed by: Azam Guerrero MD Board Certified Radiologist 08/29/2018 4:09 AM EST
[2018-08-29] MEDS: Baclofen 10 MG Tablet PO SCH ×3 (04:59→21:32)
[2018-08-29] MEDS: Labetalol HCl Inj 100 MG/20 ML Vial IV.PUSH PRN (05:08)
[2018-08-29] MEDS: QUEtiapine 100 MG Tablet PO SCH ×2 (08:11→20:57)
[2018-08-29] MEDS: Docusate Sodium Liq 100 MG/10 ML UDC G-TUBE SCH ×2 (08:11→20:55)
[2018-08-29] MEDS: Carvedilol 12.5 MG Tablet PO SCH ×2 (08:11→20:56)
[2018-08-29] MEDS: Lisinopril 10 MG Tablet PO SCH ×2 (08:11→20:57)
[2018-08-29] MEDS: amLODIPine 5 MG Tablet PO SCH (08:11)
[2018-08-29] MEDS: Enoxaparin Inj 40 MG/0.4 ML Syringe SQ SCH (08:12)
[2018-08-29] MEDS: Polyethylene Glycol 3350 17 GM Packet PO SCH (08:12)
[2018-08-29] MEDS: Famotidine PF Inj 20 MG/2 ML Vial IV.PUSH SCH ×2 (08:12→20:56)
[2018-08-29] MEDS: Beneprotein Powder Packet G-TUBE SCH ×3 (08:13→19:24)
[2018-08-29] MEDS: Chlorhexidine 0.12% Oral Kit 15 ML UDC OROPHARYNG SCH (08:13)
[2018-08-29] MEDS: Folic Acid 1 MG Tablet PO SCH (08:13)
--- NOTE | 2018-08-29 10:16 | P.PNCC ---
Subjective Subjective Remarks/Hospital Course: 08/09: 58-year-old male who was found down in his friend's garage this morning. He has a history of alcohol abuse. He recently sold his house and was staying at a friend's home. Reportedly he was due to fly later today. Patient was brought to the ER by EMS and was noted to have involuntary movements with jerking movements involving upper and lower extremities as well as his head. He received Ativan 3 mg IV and was loaded with Keppra. Initially stroke alert was called. Head CT was negative for any bleed however there was question of C6 fracture. Neurology and neurosurgery were consulted. Patient was loaded with IV Cerebyx and Vimpat by neurology. He had a Soboba J collar placed after placing hard cervical collar by neurosurgery. When I evaluated the patient in the ER he was still having involuntary movements which appeared to be episodic with occasional twitchings on his face and nystagmus. This did not appear to be generalized tonic-clonic convulsions however appeared more like an extrapyramidal reaction. I ordered a stat EEG. Patient moving around too much to obtain MRI at this time. His urine tox screen was negative. He was positive for alcohol. Patient nonverbal. His involuntary movements get exaggerated on stimulation. He was reportedly completely normal yesterday. 08/10: Patient had an episode of emesis last night followed by labored breathing. He continued to have involuntary movements. He was intubated and placed on mechanical ventilation. Currently sedated with propofol, orally intubated on mechanical ventilation. Awaiting MRI brain and C-spine. EEG done yesterday did not show any seizure activity. 08/11: Sedated, orally intubated on mechanical ventilation. MRI brain unremarkable. MRI C-spine with hairline C6 fracture with no displacement. 08/12: Remains sedated, orally intubated on mechanical ventilation. Reintubated yesterday for significant hypoxia and respiratory distress with O2 sats dropping to the 70s despite nonrebreather facemask. CT pulmonary angiogram was negative for PE and showed bilateral infiltrates at the bases. 08/13: Remains sedated, orally intubated on mechanical ventilation. On propofol /fentanyl GTT. Starting tube feeds 08/14: T-max 99.4. Currently 98.3. Scheduled for IR for lumbar puncture today. Patient acute injury. Patient is on vancomycin, acyclovir and did receive IV contrast recently. Renal ultrasound ordered. Urine eosinophils, sodium and creatinine ordered. Arousable and does follow commands on the ventilator. Breakthrough agitation/involuntary systemic movements noted 08/15: Plan for lumbar puncture today. Will likely try sedation vacation overnight. See 4 mg of midazolam overnight due to agitation. Appears comfortable. Intermittently follows commands. 08/16: Lumbar puncture from yesterday accomplished. We will try sedation vacation again today and tried on dexmedetomidine drip. Rash is much improved. Discontinued lacosamide possible source of rash. Remains leukopenic and elevated eosinophils. 08/17: Low-grade fevers overnight. Blood cultures x2, sputum performed. Will start on piperacillin/tazobactam vancomycin. Extubated today. Tolerated about 2 hours but became hypoxic on 100% nonrebreather and tachypneic. Intubated with axial traction. Will need tracheostomy has failed extubation x2 08/18: T-max 100.1. Failed extubation requiring reintubation. Tracheostomy planned for 10 AM today. 08/19: Afebrile overnight. Chest x-ray following tracheostomy demonstrates tube in good position safely above the tory. Basilar infiltrates persist but clearing. On spontaneous breathing trial earlier today he had apneic episodes. With no sedation he becomes extremely agitated however. 08/20: Percutaneous gastrostomy tube plan for today. Very agitated. Remains on clevidipine drip. 08/21: Status post percutaneous gastrostomy tube 08/20. Some distention. Currently drainage. Will check KUB. Very agitated requiring midazolam drip. We will consult neuropsychology for assistance. 08/22: Low-grade fevers overnight. Remains on multiple sedatives. Adjusted increased valproic acid and quetiapine yesterday per neuropsychiatrist rec. On trickle feeds. 08/23: T-max 99.8. Currently afebrile. We will discontinue antibiotics today. Did not require held overnight. We will advance tube feeds to goal. Positive BM. Interactive weakly. 08/24: Patient continues to follow commands but appears to be confused at times. He lifts his right leg when asked to move the left leg. He can internally rotate his right arm but does not lift against gravity. Analgesia and Versed sedation required for vent synchrony and to remain calm during T- piece trials. 08/25: Patient tolerating T piece trials, remains agitated while stimulated. Follows commands. No acute distress. 08/26: Afebrile. Tolerating tube feeds times 24 hours. Remains on midazolam, fentanyl and dexmedetomidine drips. Positive BM. 700 cc residuals. Currently metoclopramide will add erythromycin base. KUB ordered. Positive diarrhea. Subjective 08/27: Afebrile. Afebrile. Currently on fentanyl drip at 50 william grams an hour and dexmedetomidine drip at 1.3 mcg/kg/h. Midazolam drip is off. Positive BM . Tube feeds at 30 cc an hour 08/28: Resting comfortably. On T-piece. On Precedex 0.3, fentanyl 20 mics per hour. Tolerating tube feeds via PEG 08/29: Resting comfortably on T-piece. Off Precedex and fentanyl since yesterday. Tolerating tube feeds via PEG. Drowsy, arousable, not following commands. Objective Vital Signs / I&O: Vital Signs 08/28/18 10:20 08/28/18 11:00 08/28/18 11:16 Temperature Pulse Rate 75 74 73 Respiratory Rate 24 15 17 Blood Pressure 101/55 L Pulse Oximetry 99 98 08/28/18 12:00 08/28/18 13:00 08/28/18 14:00 Temperature Pulse Rate 73 78 82 Respiratory Rate 15 18 26 H Blood Pressure 100/54 L 129/60 146/74 H Pulse Oximetry 99 98 100 08/28/18 15:00 08/28/18 15:48 08/28/18 16:00 Temperature 98.7 F Pulse Rate 82 88 88 Respiratory Rate 24 17 24 Blood Pressure 154/74 H 143/67 H Pulse Oximetry 100 100 08/28/18 17:00 08/28/18 18:00 08/28/18 19:00 Temperature Pulse Rate 85 85 88 Respiratory Rate 23 22 26 H Blood Pressure 151/71 H 158/77 H 169/93 H Pulse Oximetry 100 96 95 08/28/18 20:00 08/28/18 20:04 08/28/18 21:00 Temperature 98.4 F Pulse Rate 92 H 93 H 92 H Respiratory Rate 22 21 26 H Blood Pressure 153/69 H 163/74 H Pulse Oximetry 96 98 08/28/18 22:00 08/28/18 23:00 08/28/18 23:34 Temperature Pulse Rate 98 H 100 H 98 H Respiratory Rate 25 H 23 18 Blood Pressure 144/70 H 147/73 H Pulse Oximetry 98 98 08/29/18 00:00 08/29/18 01:00 08/29/18 02:00 Temperature 99.9 F H Pulse Rate 97 H 98 H 100 H Respiratory Rate 28 H 25 H 26 H Blood Pressure 154/73 H 160/80 H 164/77 H Pulse Oximetry 97 98 96 08/29/18 03:00 08/29/18 03:36 08/29/18 04:00 Temperature 100.8 F H Pulse Rate 100 H 101 H 103 H Respiratory Rate 27 H 18 27 H Blood Pressure 161/81 H 164/77 H Pulse Oximetry 97 97 96 08/29/18 05:00 08/29/18 05:15 08/29/18 05:30 Temperature Pulse Rate 104 H 93 H 97 H Respiratory Rate 25 H 25 H 27 H Blood Pressure 181/85 H 147/77 H 152/74 H Pulse Oximetry 99 98 98 08/29/18 05:45 08/29/18 06:00 08/29/18 07:00 Temperature Pulse Rate 98 H 99 H 103 H Respiratory Rate 26 H 30 H 29 H Blood Pressure 150/74 H 142/72 H 156/85 H Pulse Oximetry 98 96 97 08/29/18 07:57 08/29/18 07:58 08/29/18 08:00 Temperature 100.3 F H Pulse Rate 92 H 107 H Respiratory Rate 18 35 H Blood Pressure 155/78 H Pulse Oximetry 97 93 L 08/29/18 09:00 08/29/18 09:55 Temperature Pulse Rate 101 H 101 H Respiratory Rate 20 20 Blood Pressure 145/68 H Pulse Oximetry 98 98 Intake & Output 08/28/18 08/29/18 08/29/18 18:59 06:59 18:59 Intake Total 821 / 821 409 / 409 Output Total 700 / 700 650 / 650 Balance 121 / 121 -241 / -241 Weight 87 kg Intake: IV 124 / 124 Precedex Inj 1,000 MCG In NS 124 / 124 Inj 240 ML @ 0.2 MCG/KG/HR 5.18 mls/hr IV.CONT TITRATE PRN Rx# :[id number] Tube Feeding 447 / 447 409 / 409 Tube Irrigant 50 / 50 Water Bolus Amount 200 / 200 Output: Urine Amount (Catheter) 700 / 700 650 / 650 Indwelling Urethral Catheter 700 / 700 650 / 650 Other: Date of Last Bowel Movement 08/28/18 08/28/18 08/28/18 # Bowel Movements 1 Result Diagrams: 08/28/18 02:59 08/28/18 02:59 Objective Remarks: GEN: 58-year-old male currently on T-piece HEENT: Mucosa moist and pink NECK: Tracheostomy present, clean/ dry/ intact. Soboba J collar in place. CARDIO: Regular rate and rhythm. S1, S2. No S4. PULM: Remains on T-piece. Few crackles in the bases. No wheezing. ABD/GI: PEG present, clean/ dry/ intact, non-tender in all quadrants EXT/MSK: No peripheral edema SKIN: Warm and well-perfused, no rashes or lesions NEURO: Drowsy, arousable, moves all 4 extremities spontaneously. PSYCH: Calm, no current agitation Assessment and Plan - Assessment and Plan Plan: Neuro/Psych: Acute toxic metabolic encephalopathy Involuntary movements -EEG 08/09- for epileptiform activity Anterior C6 fracture -Soboba J collar times 6 weeks EtOH abuse/withdrawal Off Precedex/ fentanyl gtt since 08/28. Haldol as needed for agitation Currently on chlordiazepoxide 50 mg 3 times daily, Quetiapine 150 mg 3 times daily, valproic acid 250 mg 3 times daily and oxycodone 10 mg every 4 hours and attempt to wean baclofen 10 mg 3 times daily As needed haloperidol 5 mg every 6 hours for breakthrough agitation MRI C-spine nondisplaced C6 fracture, continue Soboba J collar for 6 weeks per neurosurgery, moving all extremities spontaneously Discontinued lacosamide 100 mg IV twice daily secondary to rash-- allergies updated Continue supplementation with thiamine, folic acid and multivitamin Neuropsychiatry recommendations appreciated Acetaminophen 650 by tube every 6 hours as needed fever Cardiovascular: Hypertensive emergency Dyslipidemia Continues to have profound hypertension despite multiple meds via IV and PEG Currently on carvedilol 25 mg 3 times daily, amlodipine 10 mg daily isosorbide dinitrate 20 mg 3 times daily and hydralazine 100 mg 3 times daily. Decrease lisinopril to 10 mg twice daily Off clevidipine drip Abdominal US on 08/14 showed mild hydronephrosis but no other obvious renal cause of HTN Currently on pravastatin 40 mg at night Continue ASA 81 mg daily Pulmonary: Acute hypoxic hypercapnic respiratory failure Status post percutaneous tracheostomy 08/[address] Conn Tolerating T-piece Vent bundle Albuterol/ipratropium every 4 hours scheduled with albuterol aerosols every 2 hours as needed dyspnea Bilateral cephalic DVTs, no PE on CTA chest Pulm recs appreciated GI/liver: Elevated transaminases downward trending Hypoalbuminemia with moderate protein calorie malnutrition Status post PEG by Dr. Jensen 08/20 Ileus Tube feeding with Jevity 1.5 goal 60 cc an hour Famotidine 20 mg IV twice daily for GI prophylaxis Bowel regimen with docusate sodium 100 mg twice daily, polythene glycol centigrams and lactulose 30 cc twice daily Metoclopramide 5 mg 3 times daily stop date 08/27 and erythromycin base 250 mg 3 times daily until 08/31 as prokinetic high residuals methylnaltrexone x1 DB revealed no large and small bowel ileus. Negative hepatitis panel FEN/renal/: Acute kidney injury- resolved Hypokalemia Urinary retention with mild bilateral hydronephrosis IV hydration, strict intake output, monitor and replete electrolytes, follow BUN /creatinine. Attempt trial of void with scheduled straight cath PRN 50 mg potassium chloride Effient x1 now. Recheck potassium in a.m. ID: All cultures negative thus far with the exception of 1 blood culture on 08/17 growing staph epidermidis (contaminant); continue to observe off antibiotics Endocrine: SSI as needed to maintain euglycemia Heme: Normocytic anemia Thrombocytosis Documentation of prior possible right subclavian occlusion -negative Doppler Bilateral cephalic occlusive and nonocclusive superficial venous thrombosis Currently on enoxaparin 40 mg subcu daily for. MSK: Diffuse idiopathic skeletal hyperostosis drug rash possible DRESS Resolving PT/OT Prophylaxis: -Famotidine -SCDs, enoxaparin Consult and transfer to hospitalist service for further medical management, critical care will be signing off, please reconsult if needed.
--- NOTE | 2018-08-29 12:34 | P.PN ---
Subjective Interval history: On a T bar, 28 %. Drowsy and on Seroquel. Trach site is clear. Tolerates feeds. Physical Exam Vital signs: Vital Signs 08/28/18 13:00 08/28/18 14:00 08/28/18 15:00 Temperature Pulse Rate 78 82 82 Respiratory Rate 18 26 H 24 Blood Pressure 129/60 146/74 H 154/74 H Pulse Oximetry 98 100 100 08/28/18 15:48 08/28/18 16:00 08/28/18 17:00 Temperature 98.7 F Pulse Rate 88 88 85 Respiratory Rate 17 24 23 Blood Pressure 143/67 H 151/71 H Pulse Oximetry 100 100 08/28/18 18:00 08/28/18 19:00 08/28/18 20:00 Temperature 98.4 F Pulse Rate 85 88 92 H Respiratory Rate 22 26 H 22 Blood Pressure 158/77 H 169/93 H 153/69 H Pulse Oximetry 96 95 96 08/28/18 20:04 08/28/18 21:00 08/28/18 22:00 Temperature Pulse Rate 93 H 92 H 98 H Respiratory Rate 21 26 H 25 H Blood Pressure 163/74 H 144/70 H Pulse Oximetry 98 98 08/28/18 23:00 08/28/18 23:34 08/29/18 00:00 Temperature Pulse Rate 100 H 98 H 97 H Respiratory Rate 23 18 28 H Blood Pressure 147/73 H 154/73 H Pulse Oximetry 98 97 08/29/18 01:00 08/29/18 02:00 08/29/18 03:00 Temperature 99.9 F H Pulse Rate 98 H 100 H 100 H Respiratory Rate 25 H 26 H 27 H Blood Pressure 160/80 H 164/77 H 161/81 H Pulse Oximetry 98 96 97 08/29/18 03:36 08/29/18 04:00 08/29/18 05:00 Temperature 100.8 F H Pulse Rate 101 H 103 H 104 H Respiratory Rate 18 27 H 25 H Blood Pressure 164/77 H 181/85 H Pulse Oximetry 97 96 99 08/29/18 05:15 08/29/18 05:30 08/29/18 05:45 Temperature Pulse Rate 93 H 97 H 98 H Respiratory Rate 25 H 27 H 26 H Blood Pressure 147/77 H 152/74 H 150/74 H Pulse Oximetry 98 98 98 08/29/18 06:00 08/29/18 07:00 08/29/18 07:57 Temperature Pulse Rate 99 H 103 H 92 H Respiratory Rate 30 H 29 H 18 Blood Pressure 142/72 H 156/85 H Pulse Oximetry 96 97 08/29/18 07:58 08/29/18 08:00 08/29/18 09:00 Temperature 100.3 F H Pulse Rate 107 H 101 H Respiratory Rate 35 H 20 Blood Pressure 155/78 H 145/68 H Pulse Oximetry 97 93 L 98 08/29/18 09:55 08/29/18 10:00 08/29/18 11:00 Temperature Pulse Rate 101 H 92 H 93 H Respiratory Rate 20 29 H 23 Blood Pressure 134/64 140/66 Pulse Oximetry 98 100 99 08/29/18 11:17 08/29/18 12:00 Temperature 98.9 F Pulse Rate 90 92 H Respiratory Rate 18 84 H Blood Pressure 155/74 H Pulse Oximetry 98 Intake & Output 08/28/18 08/29/18 08/29/18 18:59 06:59 18:59 Intake Total 821 / 821 409 / 409 Output Total 700 / 700 650 / 650 Balance 121 / 121 -241 / -241 Weight 87 kg Intake: IV 124 / 124 Precedex Inj 1,000 MCG In NS 124 / 124 Inj 240 ML @ 0.2 MCG/KG/HR 5.18 mls/hr IV.CONT TITRATE PRN Rx# :[id number] Tube Feeding 447 / 447 409 / 409 Tube Irrigant 50 / 50 Water Bolus Amount 200 / 200 Output: Urine Amount (Catheter) 700 / 700 650 / 650 Indwelling Urethral Catheter 700 / 700 650 / 650 Other: Date of Last Bowel Movement 08/28/18 08/28/18 08/28/18 # Bowel Movements 1 Narrative: GENERAL: Mid aged W/M on a T Tube with trach in place SKIN: Warm and dry. HEAD: Atraumatic. Normocephalic. EYES: Pupils equal and round. No scleral icterus. no drainage. ENT: No nasal bleeding or discharge. Mucous membranes pink and moist. NECK: Trachea midline. No JVD. Trach tube in place. C Collar + CARDIOVASCULAR: Regular rate and rhythm. RESPIRATORY: No accessory muscle use. Occasional wheezes anteriorly. Breath sounds equal bilaterally. GASTROINTESTINAL: Abdomen soft, non-tender, nondistended. Hepatic and splenic margins not palpable. MUSCULOSKELETAL: Extremities without clubbing, cyanosis, or edema. No obvious deformities. NEUROLOGICAL: Lethargic. Will open eyes to command. moves all. - Urinary Catheter Management Indwelling Urethral Catheter Cath placed during this visit: yes, but has since been removed by the nurse Reason for continuing: Acute urinary retention Insertion date: 08/28/18 Insertion time: 08:00 Removal date: 08/26/18 Removal time: 06:30 Condom Cath placed during this visit: no Reason for continuing: Not indwelling catheter Straight Cath placed during this visit: yes Reason for continuing: Chronic Urinary Retention Insertion date: 08/28/18 Insertion time: 08:00 Results - Labs CBC & Chem 7: 08/28/18 02:59 08/28/18 02:59 - Imaging Impressions Chest X-Ray 08/29/18 00:00 CONCLUSION: Stable chest x-ray with bibasilar airspace opacity, left greater than right. Assessment and Plan - Assessment (1) Respiratory failure requiring intubation Code(s): J96.90 - Respiratory failure, unspecified, unspecified whether with hypoxia or hypercapnia Status: Acute (2) Pneumonia Code(s): J18.9 - Pneumonia, unspecified organism Status: Acute (3) Seizure Code(s): R56.9 - Unspecified convulsions Status: Acute (4) Hypertensive urgency Code(s): I16.0 - Hypertensive urgency Status: Acute (5) Alcohol intoxication Code(s): F10.929 - Alcohol use, unspecified with intoxication, unspecified Status: Acute (6) Altered mental status Code(s): R41.82 - Altered mental status, unspecified Status: Acute (7) Delirium due to general medical condition Code(s): F05 - Delirium due to known physiological condition Status: Acute - Plan 1. Cont T bar as tolerated FIO2 28 % 2. Reduce sedation. 3. Trach lavage and Suction.PRN 4. Continue Duoneb nebs Q6H 5. CBC BMP in am 6. Tube feeds at 50 CC 7. Continue Seroquel 100 mg 2 times daily 8. Antibiotics as ordered. 9. PT and OT when awake
[2018-08-30] MEDS: chlordiazePOXIDE 25 MG Capsule PO SCH (05:27)
[2018-08-30] MEDS: Baclofen 10 MG Tablet PO SCH ×3 (05:27→22:27)
[2018-08-30] MEDS: Polyethylene Glycol 3350 17 GM Packet PO SCH (08:40)
[2018-08-30] MEDS: Lisinopril 10 MG Tablet PO SCH (08:40)
[2018-08-30] MEDS: amLODIPine 5 MG Tablet PO SCH ×2 (08:41→11:42)
[2018-08-30] MEDS: Folic Acid 1 MG Tablet PO SCH (08:41)
[2018-08-30] MEDS: Docusate Sodium Liq 100 MG/10 ML UDC G-TUBE SCH ×2 (08:41→22:28)
[2018-08-30] MEDS: QUEtiapine 100 MG Tablet PO SCH (08:41)
[2018-08-30] MEDS: Carvedilol 12.5 MG Tablet PO SCH ×3 (08:42→22:27)
[2018-08-30] MEDS: Famotidine PF Inj 20 MG/2 ML Vial IV.PUSH SCH ×2 (08:44→22:28)
[2018-08-30] MEDS: Enoxaparin Inj 40 MG/0.4 ML Syringe SQ SCH (08:44)
[2018-08-30] MEDS: Beneprotein Powder Packet G-TUBE SCH ×3 (08:45→17:00)
--- NOTE | 2018-08-30 11:24 | P.PNIM ---
Subjective Interval history: Follow-up for acute toxic metabolic encephalopathy, EtOH abuse /withdrawal, acute-hypoxic respiratory failure with trach, C6 fracture, hypertensive emergency, anemia and urinary retention with mild bilateral hydronephrosis. Patient seen and examined laying in bed, nurse in the room, addressed patient's concern, hard to arouse. Nurse reported patient needs to be suctioned often for increased secretions. Patient was up four-point restraint will wean the restraint of. Discussed with nursing to wean sedative medication down also. Nurse reported patient has been respond at all, or no vision tracking. Patient laying in bed, looks comfortable with no acute distress or any respiratory distress. Patient hard to arouse, needed sternal rub in the beginning to open eyes. Trach in place, and PEG tube in place with feeding. Physical Exam Vital signs: Vital Signs 08/29/18 11:17 08/29/18 12:00 08/29/18 13:00 Temperature 98.9 F Pulse Rate 90 92 H 91 H Respiratory Rate 18 84 H Blood Pressure 155/74 H 150/72 H Pulse Oximetry 98 100 08/29/18 14:00 08/29/18 15:00 08/29/18 16:00 Temperature 99.0 F Pulse Rate 91 H 93 H 90 Respiratory Rate 0 L 22 22 Blood Pressure 125/62 143/73 H 147/70 H Pulse Oximetry 96 98 97 08/29/18 17:59 08/29/18 19:05 08/29/18 19:59 Temperature 98.4 F 98.6 F Pulse Rate 93 H 88 95 H Respiratory Rate 19 18 16 Blood Pressure 150/75 H 136/60 Pulse Oximetry 97 97 96 08/29/18 22:00 08/29/18 23:57 08/30/18 00:26 Temperature 98.5 F Pulse Rate 100 H 94 H Respiratory Rate 16 16 Blood Pressure 123/62 Pulse Oximetry 96 96 94 L 08/30/18 03:44 08/30/18 04:05 08/30/18 08:00 Temperature 99.1 F 99.2 F Pulse Rate 95 H 95 H 90 Respiratory Rate 16 16 24 Blood Pressure 118/58 L 104/52 L Pulse Oximetry 95 97 08/30/18 08:27 Temperature Pulse Rate 85 Respiratory Rate 16 Blood Pressure Pulse Oximetry 95 Intake & Output 08/29/18 08/30/18 08/30/18 18:59 06:59 18:59 Intake Total 756 / 756 Output Total 1320 / 1320 325 / 325 Balance -564 / -564 -325 / -325 Weight 86.4 kg Intake: Oral 0 / 0 Tube Feeding 556 / 556 Water Bolus Amount 200 / 200 Output: Urine 650 / 650 Stool 20 / 20 Urine Amount (Catheter) 650 / 650 325 / 325 Indwelling Urethral Catheter 650 / 650 325 / 325 Other: Date of Last Bowel Movement 08/28/18 08/28/18 # Bowel Movements 1 # Incontinent Bowel Movements 1 Narrative: GENERAL: Well-developed, ill-appearing -[place] male on T- piece, in no acute distress SKIN: Warm and dry. HEAD: Atraumatic. Normocephalic. EYES: Pupils equal and round. No scleral icterus. No injection or drainage. ENT: No nasal bleeding or discharge. Mucous membranes pink and moist. NECK: Tracheostomy present, clean dry and intact. [place] collar in place CARDIOVASCULAR: Regular rate and rhythm. RESPIRATORY: No accessory muscle use. Fine crackles in the bases, no wheezing. Breath sounds equal bilaterally. GASTROINTESTINAL: Abdomen soft, non-tender, nondistended. Hepatic and splenic margins not palpable. MUSCULOSKELETAL: Extremities without clubbing, cyanosis. Bilateral lower extremity with trace edema, bilateral hands/forearms with trace edema NEUROLOGICAL: Drowsy, opens eyes for extensive stimulus. PSYCHIATRIC: Calm, no current agitation. Urinary Catheter Management Indwelling Urethral Catheter: Cath placed during this visit: yes, but has since been removed by the nurse Reason for continuing: Chronic Urinary Retention Insertion date: 08/28/18 Insertion time: 08:00 Removal date: 08/26/18 Removal time: 06:30 Condom: Cath placed during this visit: no Reason for continuing: Not indwelling catheter Straight: Cath placed during this visit: yes Reason for continuing: Chronic Urinary Retention Insertion date: 08/28/18 Insertion time: 08:00 Results Labs CBC & Chem 7: 08/28/18 02:59 08/28/18 02:59 Assessment and Plan (1) Delirium due to general medical condition: Code(s): F05 - Delirium due to known physiological condition Status: Acute Plan This is a 58-year-old -[place] male with who was found in the garage, with history of alcohol abuse, was brought to the ER for involuntary movements with jerking movements involving upper and lower extremities as well as his head Metabolic encephalopathy Involuntary movements Anterior C6 fracture on [place] J collar for 6 weeks EtOH abuse/withdrawal -On trach collar -On PEG tube -MRI C-spine nondisplaced C6 fracture, continue [place] J collar for 6 weeks per neurosurgery, moving all extremities spontaneously -Continue supplementation with thiamine, folic acid and multivitamin -Neuropsychiatry recommendations appreciated -Acetaminophen 650 by tube every 6 hours as needed fever -Haldol as needed for agitation - wean chlordiazepoxide 50 mg 3 times daily, -wean Quetiapine 100 mg bid, continue valproic acid 250 mg 3 times daily -wean oxycodone 10 mg every8 hours -continue baclofen 10 mg 3 times daily -As needed haloperidol 5 mg every 6 hours for breakthrough agitation Hypertensive emergency Hyperlipidemia -Blood pressure improving, in the low side drainage -Continue current medication Coreg and pravastatin -Hold Norvasc, lisinopril for low blood pressure -Decrease hydralazine dose with hold parameters -Monitor blood pressure adjust medication as needed Acute hypoxic hypercapnic respiratory failure Status post percutaneous tracheostomy 08/[address] Conn -Tolerating T-piece -continue Albuterol/ipratropium every 4 hours scheduled with albuterol aerosols every 2 hours as needed dyspnea -Bilateral cephalic DVTs, no PE on CTA chest -Pulmonology is following: Appreciate recommendation Severe protein calorie malnutrition Elevated transaminases downward trending Hypoalbuminemia Status post PEG by Dr. Jensen 08/20 Ileus, improved -Tube feeding with Jevity 1.5 goal 60 cc an hour -Continue famotidine 20 mg IV twice daily for GI prophylaxis -Bowel regimen with docusate sodium, polythene glycol and lactulose -s/p Metoclopramide until 08/27 -Continue erythromycin base 250 mg 3 times daily until 08/31 -KUB on 08/26/18: No evidence of small or large bowel dilatation. Left basilar streakiness is noted consistent with atelectasis and/or mild infiltrate. -LFT improving, monitor Acute kidney injury Hypokalemia, Urinary retention with mild bilateral hydronephrosis -IV hydration, strict intake output - monitor and replete electrolytes - follow BUN/creatinine. 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
[2018-08-30] MEDS ORDERED: hydrALAZINE 25 MG Tablet PO SCH (13:00)
[2018-08-30] MEDS: hydrALAZINE 50 MG Tablet PO SCH ×2 (13:09→17:00)
[2018-08-30] MEDS ORDERED: Naloxone Inj 0.4 MG/ML Vial IV.PUSH ONE (17:10)
[2018-08-30] MEDS ORDERED: Naloxone Inj 0.4 MG/ML Vial IV.PUSH PRN (17:26)
--- NOTE | 2018-08-30 18:24 | XR ---
EXAM DATE: 08/30/2018 6:13 PM EST AGE/SEX: 58 years / Male INDICATIONS: Shortness of breath, possible respiratory disease. CLINICAL DATA: This is the patient's subsequent encounter. Patient reports that signs and symptoms h ave been present for 2 weeks and indicates a pain score of Nonresponsive. MEDICAL/SURGICAL HISTORY: . Hypertension. Leukemia. Non-responsive. COMPARISON: [facility] [place] 1[place] SINGLE AP, 08/29/2018. . FINDINGS: A single AP view of the chest demonstrates lungs to be symmetrically aerated. Persistent left basilar consolidation/effusion. Minimal airspace disease in the right base which actually shows some interva l improvement. Heart size is normal. Tracheostomy tube is stable in position. Osseous structures are intact with some degenerative spurring of the dorsal spine. CONCLUSION: 1. There may be some improving aeration in the right lung base with only minimal airspace disease re maining. 2. Persistent left basilar consolidation/effusion. Electronically signed by: Pedro Pablo De Santiago MD Board Certified Radiologist 08/30/2018 6:22 PM EST
[2018-08-30 19:20] LABS: Baso # (Auto) 0.2 th/mm3 (0.0-0.2); Baso % (Auto) 1.4 % (0.0-2.0); Eos # (Auto) 0.7 th/mm3 (0.0-0.4); Eos % (Auto) 6.2 % (0.0-4.0); Hematocrit 33.3 % (39.0-51.0); Hemoglobin 11.8 gm/dL (13.0-17.0); Lymph # (Auto) 1.5 th/mm3 (1.0-4.8); Lymph % (Auto) 13.4 % (9.0-44.0); Mean Corpuscular HGB Conc 35.5 % (32.0-36.0); Mean Corpuscular Hemoglobin 32.9 pg (27.0-34.0); Mean Corpuscular Volume 92.7 fL (80.0-100.0); Mono # (Auto) 0.9 th/mm3 (0.0-0.9); Mono % (Auto) 7.9 % (0.0-8.0); Neut # (Auto) 7.8 th/mm3 (1.8-7.7); Neut % (Auto) 71.1 % (16.0-70.0); Platelet Count 540 th/mm3 (150-450); Red Blood Count 3.59 mil/mm3 (4.50-5.90); Red Cell Distribution Width 14.5 % (11.6-17.2); White Blood Count 10.9 th/mm3 (4.0-11.0)
[2018-08-30 19:26] LABS: ABG PCO2 34 mmHg (38-42); ABG PO2 93 mmHg (61-120)
--- NOTE | 2018-08-30 22:03 | CT ---
EXAM DATE: 08/30/2018 9:34 PM EST AGE/SEX: 58 years / Male INDICATIONS: Altered mental status. CLINICAL DATA: This is the patient's initial encounter. Patient reports that signs and symptoms have been present for 1 day and indicates a pain score of 0/10. MEDICAL/SURGICAL HISTORY: Hypertension. Alcohol abuse None. RADIATION DOSE: 40.67 CTDI (mGy) COMPARISON: [facility] – [place], [place] HEAD W/O CONTRAST, 08/09/2018. . TECHNIQUE: CT of the head without contrast. Using automated exposure control and adjustment of the mA and/or kV according to patient size, radiation dose was kept as low as reasonably achievable to ob tain optimal diagnostic quality images. DICOM format image data is available electronically for revi ew and comparison. FINDINGS: Cerebrum: The ventricles are normal for age. There is mild prominence of the sulci suggesting mild c ortical atrophy, stable on July 2018. No evidence of midline shift, mass lesion, hemorrhage or ac [place] infarction. No extraaxial fluid collections are seen. Posterior Fossa: The cerebellum and brainstem are intact. The 4th ventricle is midline. The cerebe llopontine angle is unremarkable. Extracranial: The visualized portion of the orbits is intact. There are air-fluid levels in the sphe noid sinus, a new finding from prior. Skull: The calvaria is intact. No evidence of skull fracture. CONCLUSION: 1. No acute findings in the brain. 2. Air-fluid levels in the sphenoid sinuses. . Electronically signed by: Bhavik Combs MD Board Certified Radiologist 08/30/2018 10:02 PM EST
[2018-08-30] MEDS ORDERED: hydrALAZINE HCl Inj 20 MG/ML Vial IV.PUSH PRN (22:55)
[2018-08-31 01:58] LABS: ABG Base Excess 2.7 mmol/L (-2-2); ABG PCO2 40 mmHg (38-42); ABG PO2 67 mmHg (61-120)
--- NOTE | 2018-08-31 02:08 | P.PN ---
Subjective Interval history: ON O2 S/P TRACH Physical Exam Vital signs: Vital Signs 08/30/18 03:44 08/30/18 04:05 08/30/18 08:00 Temperature 99.1 F 99.2 F Pulse Rate 95 H 95 H 90 Respiratory Rate 16 16 24 Blood Pressure 118/58 L 104/52 L Pulse Oximetry 95 97 08/30/18 08:27 08/30/18 12:00 08/30/18 12:16 Temperature 98.6 F Pulse Rate 85 89 85 Respiratory Rate 16 22 16 Blood Pressure 114/54 L Pulse Oximetry 95 94 L 08/30/18 16:00 08/30/18 18:47 08/30/18 18:49 Temperature 99.3 F Pulse Rate 97 H 99 H 99 H Respiratory Rate 22 97 H 88 H Blood Pressure 124/57 L 181/91 H Pulse Oximetry 97 97 08/30/18 18:54 08/30/18 23:00 08/31/18 01:34 Temperature Pulse Rate 100 H 101 H Respiratory Rate 44 H 16 Blood Pressure 179/88 H Pulse Oximetry 97 94 L Intake & Output 08/30/18 08/30/18 08/31/18 06:59 18:59 06:59 Output Total 325 / 325 Balance -325 / -325 Weight 86.4 kg Output: Urine Amount (Catheter) 325 / 325 Indwelling Urethral Catheter 325 / 325 Other: Date of Last Bowel Movement 08/28/18 08/30/18 Narrative: GENERAL: Mid aged W/M on a T Tube with trach in place SKIN: Warm and dry. HEAD: Atraumatic. Normocephalic. EYES: Pupils equal and round. No scleral icterus. no drainage. ENT: No nasal bleeding or discharge. Mucous membranes pink and moist. NECK: Trachea midline. No JVD. Trach tube in place. C Collar + CARDIOVASCULAR: Regular rate and rhythm. RESPIRATORY: No accessory muscle use. Occasional wheezes anteriorly. Breath sounds equal bilaterally. GASTROINTESTINAL: Abdomen soft, non-tender, nondistended. Hepatic and splenic margins not palpable. MUSCULOSKELETAL: Extremities without clubbing, cyanosis, or edema. No obvious deformities. NEUROLOGICAL: Lethargic. Will open eyes to command. moves all. - Urinary Catheter Management Indwelling Urethral Catheter Cath placed during this visit: yes, but has since been removed by the nurse Reason for continuing: Chronic Urinary Retention Insertion date: 08/28/18 Insertion time: 08:00 Removal date: 08/26/18 Removal time: 06:30 Condom Cath placed during this visit: no Reason for continuing: Not indwelling catheter Straight Cath placed during this visit: yes Reason for continuing: Chronic Urinary Retention Insertion date: 08/28/18 Insertion time: 08:00 Results - Labs CBC & Chem 7: 08/30/18 19:03 08/28/18 02:59 Laboratory Results - last 24 hr 08/30/18 08/30/18 08/30/18 13:27 19:03 19:03 WBC 10.9 RBC 3.59 L Hgb 11.8 L Hct 33.3 L MCV 92.7 MCH 32.9 MCHC 35.5 RDW 14.5 Plt Count 540 H MPV 7.0 Neut % (Auto) 71.1 H Lymph % (Auto) 13.4 Lake % (Auto) 7.9 Eos % (Auto) 6.2 H Baso % (Auto) 1.4 Neut # (Auto) 7.8 H Lymph # (Auto) 1.5 Lake # (Auto) 0.9 Eos # (Auto) 0.7 H Baso # (Auto) 0.2 WBC Differential . Differential Comment Auto diff final Puncture Site Patient Temperature O2 Saturation ABG pH ABG pCO2 ABG pO2 ABG HCO3 ABG O2 Content ABG Base Excess ABG Methemoglobin [place] Test Hemoglobin Carboxyhemoglobin O2 Delivery Device Liter Flow Inspired O2 Critical Value Lactic Acid 1.8 Ammonia 15 08/30/18 08/30/18 08/31/18 19:03 19:15 01:45 WBC RBC Hgb Hct MCV MCH MCHC RDW Plt Count MPV Neut % (Auto) Lymph % (Auto) Lake % (Auto) Eos % (Auto) Baso % (Auto) Neut # (Auto) Lymph # (Auto) Lake # (Auto) Eos # (Auto) Baso # (Auto) WBC Differential Differential Comment Puncture Site Left radial Right radial Patient Temperature 98.6 98.6 O2 Saturation 96 91 ABG pH 7.49 H 7.44 H ABG pCO2 34 L 40 ABG pO2 93 67 ABG HCO3 25 27 H ABG O2 Content 15.3 14.7 ABG Base Excess 2.0 2.7 H ABG Methemoglobin 1.1 1.2 [place] Test Present Present Hemoglobin 11.3 L 11.4 L Carboxyhemoglobin 1.1 0.9 O2 Delivery Device T-piece T-piece Liter Flow 5.00 10.00 Inspired O2 28 98 Critical Value No No Lactic Acid Ammonia 12 - Imaging Impressions Chest X-Ray 08/30/18 00:00 CONCLUSION: 1. There may be some improving aeration in the right lung base with only minimal airspace disease remaining. 2. Persistent left basilar consolidation/effusion. Head CT 08/30/18 00:00 CONCLUSION: 1. No acute findings in the brain. 2. Air-fluid levels in the sphenoid sinuses. . Assessment and Plan - Plan RESPIRATORY FAILURE S/P TRACH C SPINE FX PLAN O2 PUM TOILET
--- NOTE | 2018-08-31 02:11 | XR ---
EXAM DATE: 08/31/2018 2:07 AM EST AGE/SEX: 58 years / Male INDICATIONS: Congestion. CLINICAL DATA: This is the patient's subsequent encounter. Patient reports that signs and symptoms h ave been present for 3 weeks and indicates a pain score of Nonresponsive. MEDICAL/SURGICAL HISTORY: Hypertension. Smoker. None. COMPARISON: [facility] [place] 1[place] SINGLE AP, 08/30/2018. . FINDINGS: Portable AP view of the chest demonstrates a normal-sized cardiac silhouette. Tracheostomy overlies t he tracheal air shadow. EKG lines overlie the patient. Lungs are underinflated and there is mild atel ectasis at the right lung base. There is persistent opacity in the left lower lobe/retrocardiac regio n. However, this has improved. No pleural effusion or pneumothorax is visualized. Bones and soft tiss ues demonstrate no acute abnormality. CONCLUSION: Persistent but improved airspace opacity in the left lower lobe which could represent atelectasis or airspace consolidation. Electronically signed by: Azam Guerrero MD Board Certified Radiologist 08/31/2018 2:09 AM EST
[2018-08-31] MEDS: Baclofen 10 MG Tablet PO SCH ×3 (06:42→22:00)
[2018-08-31 07:26] LABS: Baso # (Auto) 0.1 th/mm3 (0.0-0.2); Baso % (Auto) 0.9 % (0.0-2.0); Eos # (Auto) 0.5 th/mm3 (0.0-0.4); Eos % (Auto) 3.1 % (0.0-4.0); Hematocrit 35.3 % (39.0-51.0); Hemoglobin 11.9 gm/dL (13.0-17.0); Lymph # (Auto) 1.2 th/mm3 (1.0-4.8); Mean Corpuscular HGB Conc 33.7 % (32.0-36.0); Mean Corpuscular Hemoglobin 30.5 pg (27.0-34.0); Mean Corpuscular Volume 90.6 fL (80.0-100.0); Mean Platelet Volume 6.9 fL (7.0-11.0); Mono # (Auto) 1.1 th/mm3 (0.0-0.9); Mono % (Auto) 7.3 % (0.0-8.0); Neut # (Auto) 12.4 th/mm3 (1.8-7.7); Neut % (Auto) 80.7 % (16.0-70.0); Platelet Count 587 th/mm3 (150-450); Red Cell Distribution Width 14.3 % (11.6-17.2); White Blood Count 15.3 th/mm3 (4.0-11.0)
[2018-08-31 08:00] LABS: Alanine Aminotransferase 20 U/L (12-78); Albumin 2.8 g/dL (3.4-5.0); Alkaline Phosphatase 117 U/L (45-117); Anion Gap 8 meq/L (5-15); Aspartate Aminotransferase 15 U/L (15-37); Blood Urea Nitrogen 16 mg/dL (7-18); Calcium 9.7 mg/dL (8.5-10.1); Carbon Dioxide 27.1 meq/L (21.0-32.0); Chloride 110 meq/L (98-107); Chol/HDL Ratio 3.92 Ratio; Cholesterol 183 mg/dL (120-200); Glomerular Filtration Rate 73 mL/min (>89); Glucose,Random 106 mg/dL (74-106); HDL Cholesterol 46.6 mg/dL (40.0-60.0); LDL Cholesterol,Calculated 118 mg/dL (0-99); Potassium 4.4 meq/L (3.5-5.1); Sodium 145 meq/L (136-145); Total Protein 7.6 g/dL (6.4-8.2); Triglycerides 93 mg/dL (42-150)
--- NOTE | 2018-08-31 08:41 | P.PN ---
Subjective Interval history: reastless, encephalopathic telemetry- sinus- tachy rate around 100s- restless patient on t piece now at 40 %, copious secretions prior to transfer was on 25% last evening- desaturated and required 100%- - lots of secretious- copious now at bedside suctioned out think yellowish sputum through trach patient on TF Jevity 1.5 at 60 cc/hr- we will restart today seen with PT who knows him - this is near baseline - encephalopathic examined at bedside- motor - inconsistent- appears flaccid but with have spontaenousl movement with resistant - just very inconsistent Physical Exam Vital signs: Vital Signs 08/30/18 12:00 08/30/18 12:16 08/30/18 16:00 Temperature 98.6 F 99.3 F Pulse Rate 89 85 97 H Respiratory Rate 22 16 22 Blood Pressure 114/54 L 124/57 L Pulse Oximetry 94 L 97 08/30/18 18:47 08/30/18 18:49 08/30/18 18:54 Temperature Pulse Rate 99 H 99 H 100 H Respiratory Rate 97 H 88 H 44 H Blood Pressure 181/91 H 179/88 H Pulse Oximetry 97 97 08/30/18 19:00 08/30/18 20:00 08/30/18 20:10 Temperature 99.8 F H Pulse Rate 98 H 96 H 98 H Respiratory Rate 36 H 44 H 32 H Blood Pressure 169/89 H 184/86 H Pulse Oximetry 98 97 97 08/30/18 21:00 08/30/18 22:00 08/30/18 23:00 Temperature Pulse Rate 101 H 105 H 105 H Respiratory Rate 29 H 32 H 34 H Blood Pressure 170/83 H 180/88 H 162/123 H Pulse Oximetry 99 93 L 96 08/31/18 00:00 08/31/18 01:00 08/31/18 01:34 Temperature Pulse Rate 104 H 107 H 101 H Respiratory Rate 44 H 33 H 16 Blood Pressure 156/77 H 168/102 H Pulse Oximetry 82 L 90 L 08/31/18 02:00 08/31/18 03:00 08/31/18 04:00 Temperature 99.7 F H Pulse Rate 97 H 96 H 100 H Respiratory Rate 40 H 35 H 36 H Blood Pressure 163/91 H 197/108 H 173/93 H Pulse Oximetry 95 98 95 08/31/18 05:00 08/31/18 06:00 08/31/18 07:42 Temperature Pulse Rate 101 H 101 H Respiratory Rate 34 H 38 H Blood Pressure 176/121 H 179/87 H Pulse Oximetry 93 L 98 97 Intake & Output 08/30/18 08/31/18 08/31/18 18:59 06:59 18:59 Output Total 3325 / 3325 Balance -3325 / -3325 Weight 82.5 kg Output: Urine Amount (Catheter) 5 / 3325 Indwelling Urethral Catheter 5 / 3325 Other: Date of Last Bowel Movement 08/30/18 # Incontinent Bowel Movements 3 Narrative: restless, and fidgety, eyes opened, aphasic, not ff commands on tracheostomy - t piece- currently at 40% anicteric, pupils equal neck with Trach tube in place. C Collar + Regular rhythm, tachycardic No accessory muscle use. bialteral breath sounds equal, no rales, or wheezes Abdomen soft, non-tender, nondistended. 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 Right sided - on report flaccid- but noted right leg to flex at one time on exam - Urinary Catheter Management Indwelling Urethral Catheter Cath placed during this visit: yes, but has since been removed by the nurse Reason for continuing: Chronic Urinary Retention Insertion date: 08/28/18 Insertion time: 08:00 Removal date: 08/26/18 Removal time: 06:30 Condom Cath placed during this visit: no Reason for continuing: Not indwelling catheter Straight Cath placed during this visit: yes Reason for continuing: Chronic Urinary Retention Insertion date: 08/28/18 Insertion time: 08:00 Results - Labs CBC & Chem 7: 08/31/18 07:09 08/31/18 07:09 Laboratory Results - last 24 hr 08/30/18 08/30/18 08/30/18 13:27 19:03 19:03 WBC 10.9 RBC 3.59 L Hgb 11.8 L Hct 33.3 L MCV 92.7 MCH 32.9 MCHC 35.5 RDW 14.5 Plt Count 540 H MPV 7.0 Neut % (Auto) 71.1 H Lymph % (Auto) 13.4 [place] % (Auto) 7.9 Eos % (Auto) 6.2 H Baso % (Auto) 1.4 Neut # (Auto) 7.8 H Lymph # (Auto) 1.5 [place] # (Auto) 0.9 Eos # (Auto) 0.7 H Baso # (Auto) 0.2 WBC Differential . Differential Comment Auto diff final Puncture Site Patient Temperature O2 Saturation ABG pH ABG pCO2 ABG pO2 ABG HCO3 ABG O2 Content ABG Base Excess ABG Methemoglobin [place] Test Hemoglobin Carboxyhemoglobin O2 Delivery Device Liter Flow Inspired O2 Critical Value Sodium Potassium Chloride Carbon Dioxide Anion Gap BUN Creatinine Estimated GFR Random Glucose Lactic Acid 1.8 Calcium Total Bilirubin AST ALT Alkaline Phosphatase Ammonia 15 Total Protein Albumin Triglycerides Cholesterol LDL Cholesterol, Calc HDL Cholesterol Cholesterol/HDL Ratio 08/30/18 08/30/18 08/31/18 19:03 19:15 01:45 WBC RBC Hgb Hct MCV MCH MCHC RDW Plt Count MPV Neut % (Auto) Lymph % (Auto) [place] % (Auto) Eos % (Auto) Baso % (Auto) Neut # (Auto) Lymph # (Auto) [place] # (Auto) Eos # (Auto) Baso # (Auto) WBC Differential Differential Comment Puncture Site Left radial Right radial Patient Temperature 98.6 98.6 O2 Saturation 96 91 ABG pH 7.49 H 7.44 H ABG pCO2 34 L 40 ABG pO2 93 67 ABG HCO3 25 27 H ABG O2 Content 15.3 14.7 ABG Base Excess 2.0 2.7 H ABG Methemoglobin 1.1 1.2 [place] Test Present Present Hemoglobin 11.3 L 11.4 L Carboxyhemoglobin 1.1 0.9 O2 Delivery Device T-piece T-piece Liter Flow 5.00 10.00 Inspired O2 28 98 Critical Value No No Sodium Potassium Chloride Carbon Dioxide Anion Gap BUN Creatinine Estimated GFR Random Glucose Lactic Acid Calcium Total Bilirubin AST ALT Alkaline Phosphatase Ammonia 12 Total Protein Albumin Triglycerides Cholesterol LDL Cholesterol, Calc HDL Cholesterol Cholesterol/HDL Ratio 08/31/18 08/31/18 07:09 07:09 WBC 15.3 H RBC 3.90 L Hgb 11.9 L Hct 35.3 L MCV 90.6 MCH 30.5 MCHC 33.7 RDW 14.3 Plt Count 587 H MPV 6.9 L Neut % (Auto) 80.7 H Lymph % (Auto) 8.0 L [place] % (Auto) 7.3 Eos % (Auto) 3.1 Baso % (Auto) 0.9 Neut # (Auto) 12.4 H Lymph # (Auto) 1.2 [place] # (Auto) 1.1 H Eos # (Auto) 0.5 H Baso # (Auto) 0.1 WBC Differential . Differential Comment Auto diff final Puncture Site Patient Temperature O2 Saturation ABG pH ABG pCO2 ABG pO2 ABG HCO3 ABG O2 Content ABG Base Excess ABG Methemoglobin [place] Test Hemoglobin Carboxyhemoglobin O2 Delivery Device Liter Flow Inspired O2 Critical Value Sodium 145 Potassium 4.4 Chloride 110 H Carbon Dioxide 27.1 Anion Gap 8 BUN 16 Creatinine 1.05 Estimated GFR 73 L Random Glucose 106 Lactic Acid Calcium 9.7 Total Bilirubin 0.3 AST 15 ALT 20 Alkaline Phosphatase 117 Ammonia Total Protein 7.6 D Albumin 2.8 L Triglycerides 93 Cholesterol 183 LDL Cholesterol, Calc 118 H HDL Cholesterol 46.6 Cholesterol/HDL Ratio 3.92 - Imaging Impressions Chest X-Ray 08/30/18 00:00 CONCLUSION: 1. There may be some improving aeration in the right lung base with only minimal airspace disease remaining. 2. Persistent left basilar consolidation/effusion. Head CT 08/30/18 00:00 CONCLUSION: 1. No acute findings in the brain. 2. Air-fluid levels in the sphenoid sinuses. . Chest X-Ray 08/31/18 00:00 CONCLUSION: Persistent but improved airspace opacity in the left lower lobe which could represent atelectasis or airspace consolidation. Assessment and Plan - Assessment (1) Delirium due to general medical condition Code(s): F05 - Delirium due to known physiological condition Status: Acute - Plan 58-year-old -Japanese male with who was found in the garage, with history of alcohol abuse, was brought to the ER for involuntary movements with jerking movements involving upper and lower extremities as well as his head Metabolic encephalopathy- possibly Wernickes Anterior C6 fracture on [place] collar for 6 weeks with flaccid right sided extremtiies EtOH abuse/withdrawal -On trach - piece curretnly at 40%- need vigorous frequent suctioning. trial of levsin -On PEG tube- restart tube feedings today - was on jevity 1.5 goal rate of 60 cc /hr -MRI C-spine nondisplaced C6 fracture, continue [place] collar for 6 weeks per neurosurgery, moving all extremities spontaneously -Continue supplementation with thiamine, folic acid and multivitamin -Neuropsychiatry recommendations appreciated -Acetaminophen 650 by tube every 6 hours as needed fever -Haldol as needed for agitation- DC Librium -continue on Seroquel for now at 50 mg bid continue valproic acid 250 mg 3 times daily -wean oxycodone 10 mg every8 hours -continue baclofen 10 mg 3 times daily -As needed haloperidol 5 mg every 6 hours for breakthrough agitation -d/w PT daily - they know him very well - motor inconsistent - with some spasticity and resistance and one can observe some spontaenousl movements Hypertensive emergency- readings elevated Tachycardia- due to agitation Hyperlipidemia -Blood pressure elevated - DC Coreg- will change to Lopressor 50 mg po q8 - restart Amlodipine 10 mg daily - was also on Lisinopril - was held- monitor and restart if needed -Decrease hydralazine dose with hold parameters -Monitor blood pressure adjust medication as needed Acute hypoxic hypercapnic respiratory failure Status post percutaneous tracheostomy 08/[address] Conn -Tolerating T-piece- now on 40 %- RT ff- wean down as toelrated - prior to this was alredy down to 28% -continue Albuterol/ipratropium every 4 hours scheduled with albuterol aerosols every 2 hours as needed dyspnea -Bilateral cephalic DVTs, no PE on CTA chest -needs vigorous pulmonary toilette - Pulmonary ff Severe protein calorie malnutrition Elevated transaminases downward trending Hypoalbuminemia Status post PEG by Dr. Jensen 08/20 Ileus, improved -Tube feeding with Jevity 1.5 goal 60 cc an hour- restart TF -Continue famotidine 20 mg IV twice daily for GI prophylaxis -Bowel regimen with docusate sodium, polythene glycol and lactulose -s/p Metoclopramide until 08/27 -Continue erythromycin base 250 mg 3 times daily until 08/31 -KUB on 08/26/18: No evidence of small or large bowel dilatation. Left basilar streakiness is noted consistent with atelectasis and/or mild infiltrate. 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
[2018-08-31] MEDS ORDERED: Hyoscyamine Liq Drops 0.125 MG/ML 15 ML Bottle SL PRN (09:05)
[2018-08-31] MEDS: Folic Acid 1 MG Tablet PO SCH (10:25)
[2018-08-31] MEDS: hydrALAZINE 50 MG Tablet PO SCH ×3 (10:25→21:58)
[2018-08-31] MEDS: Metoprolol Tartrate 50 MG Tablet PO SCH ×3 (10:25→21:59)
[2018-08-31] MEDS: Polyethylene Glycol 3350 17 GM Packet PO SCH (10:26)
[2018-08-31] MEDS: Docusate Sodium Liq 100 MG/10 ML UDC G-TUBE SCH ×2 (10:26→21:59)
[2018-08-31] MEDS: Beneprotein Powder Packet G-TUBE SCH ×3 (10:26→21:58)
[2018-08-31 12:25] LABS: Bacteria,Urine Rare /hpf; Bilirubin,Urine Negative (Negative); Clarity,Urine Clear (Clear); Color,Urine Yellow (Yellw/Straw); Glucose,Urine (UA) Negative (Negative); Hyaline Casts,Urine 4 /lpf (0-3); Leukocyte Esterase,Urine Small (Negative); Nitrite,Urine Negative (Negative); Specific Gravity,Urine 1.017 (1.002-1.035)
[2018-08-31 13:12] LABS: Hemoglobin A1c 5.8 % (4.3-6.0)
--- NOTE | 2018-08-31 18:45 | P.PN ---
Subjective Interval history: ALERT LESS SOB Physical Exam Vital signs: Vital Signs 08/30/18 18:47 08/30/18 18:49 08/30/18 18:54 Temperature Pulse Rate 99 H 99 H 100 H Respiratory Rate 97 H 88 H 44 H Blood Pressure 181/91 H 179/88 H Pulse Oximetry 97 97 08/30/18 19:00 08/30/18 20:00 08/30/18 20:10 Temperature 99.8 F H Pulse Rate 98 H 96 H 98 H Respiratory Rate 36 H 44 H 32 H Blood Pressure 169/89 H 184/86 H Pulse Oximetry 98 97 97 08/30/18 21:00 08/30/18 22:00 08/30/18 23:00 Temperature Pulse Rate 101 H 105 H 105 H Respiratory Rate 29 H 32 H 34 H Blood Pressure 170/83 H 180/88 H 162/123 H Pulse Oximetry 99 93 L 96 08/31/18 00:00 08/31/18 01:00 08/31/18 01:34 Temperature Pulse Rate 104 H 107 H 101 H Respiratory Rate 44 H 33 H 16 Blood Pressure 156/77 H 168/102 H Pulse Oximetry 82 L 90 L 08/31/18 02:00 08/31/18 03:00 08/31/18 04:00 Temperature 99.7 F H Pulse Rate 97 H 96 H 100 H Respiratory Rate 40 H 35 H 36 H Blood Pressure 163/91 H 197/108 H 173/93 H Pulse Oximetry 95 98 95 08/31/18 05:00 08/31/18 06:00 08/31/18 06:36 Temperature Pulse Rate 101 H 101 H 98 H Respiratory Rate 34 H 38 H 32 H Blood Pressure 176/121 H 179/87 H 177/90 H Pulse Oximetry 93 L 98 100 08/31/18 07:00 08/31/18 07:06 08/31/18 07:36 Temperature Pulse Rate 105 H 104 H 109 H Respiratory Rate 38 H 36 H 36 H Blood Pressure 168/85 H 148/86 H Pulse Oximetry 97 96 97 08/31/18 07:42 08/31/18 08:00 08/31/18 08:06 Temperature Pulse Rate 109 H 116 H Respiratory Rate 34 H 47 H Blood Pressure 185/94 H Pulse Oximetry 97 100 95 08/31/18 08:36 08/31/18 09:00 08/31/18 09:10 Temperature 98.6 F Pulse Rate 111 H 110 H 110 H Respiratory Rate 37 H 46 H 44 H Blood Pressure 178/95 H 139/94 H Pulse Oximetry 98 98 98 08/31/18 09:36 08/31/18 10:00 08/31/18 10:06 Temperature Pulse Rate 112 H 111 H 108 H Respiratory Rate 44 H 42 H 53 H Blood Pressure 189/101 H 180/89 H Pulse Oximetry 95 94 L 92 L 08/31/18 10:36 08/31/18 11:00 08/31/18 11:06 Temperature Pulse Rate 111 H 107 H 107 H Respiratory Rate 47 H 40 H 41 H Blood Pressure 195/101 H 189/91 H Pulse Oximetry 95 95 95 08/31/18 11:36 08/31/18 12:00 08/31/18 12:06 Temperature 98.3 F Pulse Rate 107 H 101 H 100 H Respiratory Rate 31 H 36 H 35 H Blood Pressure 188/97 H 179/92 H Pulse Oximetry 97 98 99 08/31/18 12:36 08/31/18 13:00 08/31/18 13:06 Temperature Pulse Rate 95 H 91 H 92 H Respiratory Rate 37 H 22 33 H Blood Pressure 167/90 H 170/86 H Pulse Oximetry 98 100 100 08/31/18 13:36 08/31/18 14:00 08/31/18 14:06 Temperature Pulse Rate 91 H 89 91 H Respiratory Rate 34 H 37 H 33 H Blood Pressure 166/89 H 150/83 H Pulse Oximetry 99 98 97 08/31/18 14:36 08/31/18 15:00 08/31/18 15:06 Temperature Pulse Rate 92 H 88 88 Respiratory Rate 28 H 32 H 30 H Blood Pressure 142/77 H 140/75 Pulse Oximetry 98 98 98 08/31/18 15:36 08/31/18 16:00 08/31/18 16:06 Temperature Pulse Rate 87 89 90 Respiratory Rate 29 H 33 H 32 H Blood Pressure 144/77 H 157/80 H Pulse Oximetry 99 100 99 08/31/18 16:36 08/31/18 17:00 08/31/18 17:05 Temperature 99.4 F Pulse Rate 92 H 92 H Respiratory Rate 35 H 38 H Blood Pressure 167/82 H Pulse Oximetry 99 97 99 08/31/18 17:06 08/31/18 17:36 08/31/18 18:00 Temperature Pulse Rate 96 H 98 H Respiratory Rate 38 H 11 L Blood Pressure 174/99 H 164/86 H Pulse Oximetry 98 96 08/31/18 18:06 Temperature Pulse Rate 98 H Respiratory Rate 18 Blood Pressure 161/88 H Pulse Oximetry 96 Intake & Output 08/30/18 08/31/18 08/31/18 18:59 06:59 18:59 Intake Total 187 / 187 Output Total 3325 / 3325 650 / 650 Balance -3325 / -3325 -463 / -463 Weight 82.5 kg Intake: Tube Feeding Output: Urine Amount (Catheter) 3325 / 3325 650 / 650 Indwelling Urethral Catheter 3325 / 3325 650 / 650 Other: Date of Last Bowel Movement 08/30/18 # Incontinent Bowel Movements 3 Narrative: restless, and fidgety, eyes opened, aphasic, not ff commands on tracheostomy - t piece- currently at 40% anicteric, pupils equal neck with Trach tube in place. C Collar + Regular rhythm, tachycardic No accessory muscle use. bialteral breath sounds equal, no rales, or wheezes Abdomen soft, non-tender, nondistended. 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 Right sided - on report flaccid- but noted right leg to flex at one time on exam - Urinary Catheter Management Indwelling Urethral Catheter Cath placed during this visit: yes, but has since been removed by the nurse Reason for continuing: Chronic Urinary Retention Insertion date: 08/28/18 Insertion time: 08:00 Removal date: 08/26/18 Removal time: 06:30 Condom Cath placed during this visit: no Reason for continuing: Not indwelling catheter Straight Cath placed during this visit: yes Reason for continuing: Chronic Urinary Retention Insertion date: 08/28/18 Insertion time: 08:00 Results - Labs CBC & Chem 7: 08/31/18 07:09 08/31/18 07:09 Laboratory Results - last 24 hr 08/30/18 08/30/18 08/30/18 19:03 19:03 19:03 WBC 10.9 RBC 3.59 L Hgb 11.8 L Hct 33.3 L MCV 92.7 MCH 32.9 MCHC 35.5 RDW 14.5 Plt Count 540 H MPV 7.0 Neut % (Auto) 71.1 H Lymph % (Auto) 13.4 [place] % (Auto) 7.9 Eos % (Auto) 6.2 H Baso % (Auto) 1.4 Neut # (Auto) 7.8 H Lymph # (Auto) 1.5 [place] # (Auto) 0.9 Eos # (Auto) 0.7 H Baso # (Auto) 0.2 WBC Differential . Differential Comment Auto diff final Puncture Site Patient Temperature O2 Saturation ABG pH ABG pCO2 ABG pO2 ABG HCO3 ABG O2 Content ABG Base Excess ABG Methemoglobin [place] Test Hemoglobin Carboxyhemoglobin O2 Delivery Device Liter Flow Inspired O2 Critical Value Sodium Potassium Chloride Carbon Dioxide Anion Gap BUN Creatinine Estimated GFR Random Glucose Hemoglobin A1c Lactic Acid 1.8 Calcium Total Bilirubin AST ALT Alkaline Phosphatase Ammonia 12 Total Protein Albumin Triglycerides Cholesterol LDL Cholesterol, Calc HDL Cholesterol Cholesterol/HDL Ratio Urine Color Urine Clarity Urine pH Ur Specific [place] Urine Protein Urine Glucose (UA) Urine Ketones Urine Occult Blood Urine Nitrate Urine Bilirubin Urine Urobilinogen Ur Leukocyte Esterase Urine RBC Urine WBC Urine Bacteria Hyaline Casts Micro UA Comment Ur Microscopic Review Urine Culture Comments 08/30/18 08/31/18 08/31/18 19:15 01:45 07:09 WBC 15.3 H RBC 3.90 L Hgb 11.9 L Hct 35.3 L MCV 90.6 MCH 30.5 MCHC 33.7 RDW 14.3 Plt Count 587 H MPV 6.9 L Neut % (Auto) 80.7 H Lymph % (Auto) 8.0 L [place] % (Auto) 7.3 Eos % (Auto) 3.1 Baso % (Auto) 0.9 Neut # (Auto) 12.4 H Lymph # (Auto) 1.2 [place] # (Auto) 1.1 H Eos # (Auto) 0.5 H Baso # (Auto) 0.1 WBC Differential . Differential Comment Auto diff final Puncture Site Left radial Right radial Patient Temperature 98.6 98.6 O2 Saturation 96 91 ABG pH 7.49 H 7.44 H ABG pCO2 34 L 40 ABG pO2 93 67 ABG HCO3 25 27 H ABG O2 Content 15.3 14.7 ABG Base Excess 2.0 2.7 H ABG Methemoglobin 1.1 1.2 [place] Test Present Present Hemoglobin 11.3 L 11.4 L Carboxyhemoglobin 1.1 0.9 O2 Delivery Device T-piece T-piece Liter Flow 5.00 10.00 Inspired O2 28 98 Critical Value No No Sodium Potassium Chloride Carbon Dioxide Anion Gap BUN Creatinine Estimated GFR Random Glucose Hemoglobin A1c Lactic Acid Calcium Total Bilirubin AST ALT Alkaline Phosphatase Ammonia Total Protein Albumin Triglycerides Cholesterol LDL Cholesterol, Calc HDL Cholesterol Cholesterol/HDL Ratio Urine Color Urine Clarity Urine pH Ur Specific [place] Urine Protein Urine Glucose (UA) Urine Ketones Urine Occult Blood Urine Nitrate Urine Bilirubin Urine Urobilinogen Ur Leukocyte Esterase Urine RBC Urine WBC Urine Bacteria Hyaline Casts Micro UA Comment Ur Microscopic Review Urine Culture Comments 08/31/18 08/31/18 08/31/18 07:09 07:09 11:00 WBC RBC Hgb Hct MCV MCH MCHC RDW Plt Count MPV Neut % (Auto) Lymph % (Auto) [place] % (Auto) Eos % (Auto) Baso % (Auto) Neut # (Auto) Lymph # (Auto) [place] # (Auto) Eos # (Auto) Baso # (Auto) WBC Differential Differential Comment Puncture Site Patient Temperature O2 Saturation ABG pH ABG pCO2 ABG pO2 ABG HCO3 ABG O2 Content ABG Base Excess ABG Methemoglobin [place] Test Hemoglobin Carboxyhemoglobin O2 Delivery Device Liter Flow Inspired O2 Critical Value Sodium 145 Potassium 4.4 Chloride 110 H Carbon Dioxide 27.1 Anion Gap 8 BUN 16 Creatinine 1.05 Estimated GFR 73 L Random Glucose 106 Hemoglobin A1c 5.8 Lactic Acid Calcium 9.7 Total Bilirubin 0.3 AST 15 ALT 20 Alkaline Phosphatase 117 Ammonia Total Protein 7.6 D Albumin 2.8 L Triglycerides 93 Cholesterol 183 LDL Cholesterol, Calc 118 H HDL Cholesterol 46.6 Cholesterol/HDL Ratio 3.92 Urine Color Yellow Urine Clarity Clear Urine pH 7.0 Ur Specific [place] 1.017 Urine Protein 30 H Urine Glucose (UA) Negative Urine Ketones Negative Urine Occult Blood Negative Urine Nitrate Negative Urine Bilirubin Negative Urine Urobilinogen Less than 2 Ur Leukocyte Esterase Small H Urine RBC 21 H Urine WBC 17 H Urine Bacteria Rare H Hyaline Casts 4 Micro UA Comment Cath-culture ind Ur Microscopic Review Not Reportable Urine Culture Comments Cath-cult indicated - Imaging Impressions Head CT 08/30/18 00:00 CONCLUSION: 1. No acute findings in the brain. 2. Air-fluid levels in the sphenoid sinuses. . Chest X-Ray 08/31/18 00:00 CONCLUSION: Persistent but improved airspace opacity in the left lower lobe which could represent atelectasis or airspace consolidation. Assessment and Plan - Plan RESPIRATORY FAILURE S/P TRACH C SPINE FX PLAN O2 PUM TOILET INCREASE ACTIVITY
[2018-08-31] MEDS: Famotidine 20 MG Tablet G-TUBE SCH (21:59)
[2018-08-31] MEDS: QUEtiapine 100 MG Tablet PO SCH (22:01)
--- NOTE | 2018-08-31 22:11 | MG ---
cc: Jett Tapia MD DATE OF STUDY: 08/31/2018 ELECTROENCEPHALOGRAM RECORD NUMBER: [id number] DESCRIPTION: Appearance of stage II sleep with generalized delta activity 1-3 Hz, followed by spindles. Limited driving with photic stimulation. Single-lead EKG showing sinus rhythm. INTERPRETATION: Appearance of stage II sleep. Clinical correlation. MD TEA Ruiz/jose , 09:10 PM , 09:15 PM
[2018-09-01] MEDS: Baclofen 10 MG Tablet PO SCH ×3 (06:11→22:00)
[2018-09-01] MEDS: Polyethylene Glycol 3350 17 GM Packet PO SCH (09:50)
[2018-09-01] MEDS: QUEtiapine 100 MG Tablet PO SCH ×2 (09:51→22:00)
[2018-09-01] MEDS: hydrALAZINE 50 MG Tablet PO SCH ×3 (09:51→17:46)
[2018-09-01] MEDS: Folic Acid 1 MG Tablet PO SCH (09:51)
[2018-09-01] MEDS: Metoprolol Tartrate 50 MG Tablet PO SCH ×3 (09:52→17:46)
[2018-09-01] MEDS: Beneprotein Powder Packet G-TUBE SCH ×3 (09:52→17:46)
[2018-09-01] MEDS: Famotidine 20 MG Tablet G-TUBE SCH ×2 (09:53→22:00)
[2018-09-01] MEDS: Docusate Sodium Liq 100 MG/10 ML UDC G-TUBE SCH ×2 (09:53→21:59)
--- NOTE | 2018-09-01 10:28 | P.CONPAL ---
Consult Service: Palliative Care Requesting Physician: Chana Perez Reason for Consult: a. To assist with evaluation and management of symptoms including: pain, dyspnea, weakness b. To assist medical decision maker(s) with: better understanding of current medical conditions; weighing benefits/burdens of medical treatment options; making medical treatment decisions. Primary Care Provider: UNKNOWN History of Present Illness History of Present Illness: This is a 58 y/o male with hx ETOH abuse who originally presented as a stroke alert to [facility] 08/09/18 after being found down at his sister's home. Apparently he was staying with a neighbor who agreed to take him in for a few days. Per his sister neighbor reported he became "violently ill" prior to being found down. On arrival he was noted to have BP 226/139, elevated ethanol level, jerking and twitching movements and nystagmus. He was given ativan, keppra, cerebyx, vimpat. Neurology consulted and he was not deemed to be a candidate for TPA. Imaging suggestive C6 fx and DISH. Hospital course remarkable for the following * neurosurgeon noted behavior concerning for "metabolic or anoxic picture" * Per [facility] extrapyramidal reaction vs CVA vs anoxia * EEG showing moderate encephalopathy, during EEG pt having frequent shaking and moaning w/o epileptic correlation * 08/10 intubated, 08/11 extubated and then reintubated * noted to be having rhabdomyolysis * Pulmonology consulted * developed XIMENA * developed drug rash per CCM * 08/15 had LP * 08/17 extubated and reintubated * 08/18 tracheostomy * found to have occlusive cephalic veins bilat * 08/20/18 PEG tube placed after which he became distended and appeared to have ileus which later resolved * has had persistent agitation, neuropsychology consulted and recommended increased valproic acid, quetiapine On my eval pt is resting in bed in NAD, eyes open. He does make eye contact on command. Pupillary reflex sluggish if at all present. When asked to stick out his tongue he makes a 'kissing' gesture with mouth. Follows no other commands and does not move his limbs. Per RN on a day-to-day basis he is inconsistent with his movements, strength, and ability to follow commands. Function/Cognitive Trajectory: Prior to this admission pt was independent with ADLs. Family noted cognitive decline in the last year, noted that pt was repeating phrases, had personality changes, and intermittent anger and hostility. Family observed this happening generally at the end of the day. Review of Systems ROS pt limited d/t mental status, lethargy. completed to best of my ability from chart, family, RN Constitutional: Reports weakness Eyes: Denies change in vision Ears, Nose, Mouth, and Throat: Reports difficulty swallowing, Denies abnormal hearing Cardiovascular: Denies chest pain Respiratory: Reports chest congestion, Reports excessive phlegm production, Reports shortness of breath Gastrointestinal: Reports constipation, Reports difficulty swallowing, Denies abdominal pain, Denies vomiting Musculoskeletal: Reports back pain, Reports muscle cramps, Reports muscle weakness Skin/Breast: Denies bleeding lesions, Denies yellowing of the skin Neurologic: Reports behavioral changes, Reports confusion, Reports convulsions Psychiatric: Reports behavioral changes, Reports irritability, Reports mood swings Hematologic/Lymphatic: Denies easy bleeding PMFSH - History History Provided By: Friend, Potato Grader / EMT - Medical / Surgical Hx Neg / Unobtainable Medical Problems Denied: Unable to Obtain - Medical History Medical History: Medical History (Last Reviewed 09/02/18 @ 07:50 by Belinda Arnold) ETOH abuse HTN (hypertension) - Surgical History Surgical History: Surgical History (Last Updated 09/01/18 @ 16:56 by RC Dalton) No history of previous surgery - Family History Family History: Family History (Last Updated 09/01/18 @ 16:56 by RC Dalton) Father Alzheimer's dementia - Tobacco History Tobacco Use In Past 30 Days: Yes Smoking Status: Current every day smoker Tobacco Type: Cigarettes - Alcohol History How Often Do You Have a Drink Containing Alcohol: Unable to Obtain (family reports long-term etoh abuse but do not know how much he drank) - Substance Use History Substance History: Unable to Obtain - Travel History Recent Travel in the [place] Within the Last 8 Weeks: No Recent Travel Out of the Country Within the Last 8 Weeks: No - Immunization History Tetanus Immunization: Unable to Assess Medications and Allergies Active Medications: Active Medications Acetaminophen (Tylenol) 650 mg PO Q6H PRN PRN Reason: temp > 100F Acetylcysteine (Mucomyst 20% Neb) 2 ml NEB Q4HR NEB PRN PRN Reason: CONGESTION Last Admin: 09/01/18 09:08 Dose: 2 ml Albuterol (Albuterol Neb (Prn)) 2.5 mg NEB Q2HR NEB PRN PRN Reason: DYSPNEA Last Admin: 09/01/18 09:08 Dose: 2.5 mg Aspirin (Aspirin Chew) 81 mg G-TUBE DAILY [facility] Last Admin: 09/01/18 09:52 Dose: 81 mg Baclofen (Lioresal) 10 mg PO Q8HR [facility] Last Admin: 09/01/18 06:11 Dose: 10 mg Dextrose (D50w Vial) 50 ml IV.PUSH UNSCH PRN PRN Reason: PER HYPOGLYCEMIA PROTOCOL Docusate Sodium (Colace Liq) 100 mg G-TUBE BID [facility] Last Admin: 09/01/18 09:53 Dose: 100 mg Enoxaparin Sodium (Lovenox Inj) 40 mg SQ DAILY [facility] Last Admin: 08/30/18 08:44 Dose: 40 mg Famotidine (Pepcid) 20 mg G-TUBE BID [facility] Last Admin: 09/01/18 09:53 Dose: 20 mg Folic Acid (Folic Acid) 1 mg PO DAILY [facility] Last Admin: 09/01/18 09:51 Dose: 1 mg Glucagon (Glucagon Inj) 1 mg OTHER UNSCH PRN PRN Reason: for Hypoglycemia Protocol Haloperidol Lactate (Haldol Inj) 5 mg IV.PUSH Q6H PRN PRN Reason: Breakthrough agitation Last Admin: 08/22/18 10:46 Dose: 5 mg Hydralazine HCl (Apresoline) 50 mg PO TID [facility] Last Admin: 09/01/18 09:51 Dose: 50 mg Hydralazine HCl (Apresoline Inj) 20 mg IV.PUSH Q4H PRN PRN Reason: SBP > 190 or dbp > 110 Hyoscyamine (Levsin Liq) 0.125 mg SL Q4H PRN PRN Reason: SECRETIONS Isosorbide Dinitrate (Isordil) 20 mg PO Q8HR [facility] Last Admin: 09/01/18 06:11 Dose: 20 mg Lactulose (Lactulose Liq) 30 ml PO BID [facility] Last Admin: 09/01/18 09:53 Dose: 30 ml Lisinopril (Prinivil) 10 mg PO BID [facility] Last Admin: 08/30/18 08:40 Dose: 10 mg Metoprolol Tartrate (Lopressor) 50 mg PO TID [facility] Last Admin: 09/01/18 09:52 Dose: 50 mg Multivitamins (Theragran) 1 tab PO DAILY [facility] Last Admin: 09/01/18 09:51 Dose: 1 tab Naloxone HCl (Narcan Inj) 0.4 mg IV.PUSH Q2M PRN PRN Reason: SEDATION Last Admin: 08/30/18 17:38 Dose: 0.4 mg Oxycodone HCl (Roxicodone Intensol Liq) 10 mg G-TUBE Q8HR [facility] Last Admin: 08/30/18 13:17 Dose: Not Given Polyethylene Glycol (Miralax) 17 gm PO DAILY [facility] Last Admin: 09/01/18 09:50 Dose: 17 gm Pravastatin Sodium (Pravachol) 40 mg G-TUBE HS [facility] Last Admin: 08/31/18 22:00 Dose: 40 mg Quetiapine Fumarate (Seroquel) 50 mg PO BID [facility] Last Admin: 09/01/18 09:51 Dose: 50 mg Sodium Chloride (Ns Flush) 2 ml IV.FLUSH BID [facility] Last Admin: 09/01/18 09:53 Dose: 2 ml Sodium Chloride (Ns Flush) 2 ml IV.FLUSH PRN PRN PRN Reason: FLUSH AFTER USING IV ACCESS Last Admin: 08/30/18 22:27 Dose: 2 ml Sterile Water (Free Water) 200 ml G-TUBE Q8HR [facility] Last Admin: 09/01/18 06:11 Dose: 200 ml Thiamine HCl (Vitamin B1) 100 mg PO DAILY [facility] Last Admin: 09/01/18 09:52 Dose: 100 mg Valproate Sodium (Depakene Liq) 250 mg PO TID [facility] Last Admin: 09/01/18 09:53 Dose: 250 mg Whey (Beneprotein Powder) 1 packet G-TUBE TID [facility] Last Admin: 09/01/18 09:52 Dose: 1 packet Allergies Allergy/AdvReac Type Severity Reaction Status Date / Time lacosamide Allergy Rash Verified 08/25/18 10:47 Home Medications Medication Instructions Recorded Confirmed Type Unable to Obtain Home Meds 08/09/18 08/09/18 History Advance Directives Living Will: Unknown Healthcare Surrogate: No Family/friends goals: pending further discussions Ethical and Legal Issues: Patient is not capacitated to make medical decisions. In the absence of designated healthcare surrogate proxy decision making falls to his mother. There are 2 sisters who are in close contact with her and appear to be working together. If for some reason the mother is unable to make decisions, proxy medical decision making would fall to the majority of 4 siblings. Physical Exam Vital Signs: Vital Signs - 24 hr 08/31/18 10:36 08/31/18 11:00 08/31/18 11:06 Temperature Pulse Rate 111 H 107 H 107 H Respiratory Rate 47 H 40 H 41 H Blood Pressure 195/101 H 189/91 H Pulse Oximetry 95 95 95 08/31/18 11:36 08/31/18 12:00 08/31/18 12:06 Temperature 98.3 F Pulse Rate 107 H 101 H 100 H Respiratory Rate 31 H 36 H 35 H Blood Pressure 188/97 H 179/92 H Pulse Oximetry 97 98 99 08/31/18 12:36 08/31/18 13:00 08/31/18 13:06 Temperature Pulse Rate 95 H 91 H 92 H Respiratory Rate 37 H 22 33 H Blood Pressure 167/90 H 170/86 H Pulse Oximetry 98 100 100 08/31/18 13:36 08/31/18 14:00 08/31/18 14:06 Temperature Pulse Rate 91 H 89 91 H Respiratory Rate 34 H 37 H 33 H Blood Pressure 166/89 H 150/83 H Pulse Oximetry 99 98 97 08/31/18 14:36 08/31/18 15:00 08/31/18 15:06 Temperature Pulse Rate 92 H 88 88 Respiratory Rate 28 H 32 H 30 H Blood Pressure 142/77 H 140/75 Pulse Oximetry 98 98 98 08/31/18 15:36 08/31/18 16:00 08/31/18 16:06 Temperature Pulse Rate 87 89 90 Respiratory Rate 29 H 33 H 32 H Blood Pressure 144/77 H 157/80 H Pulse Oximetry 99 100 99 08/31/18 16:36 08/31/18 17:00 08/31/18 17:05 Temperature 99.4 F Pulse Rate 92 H 92 H Respiratory Rate 35 H 38 H Blood Pressure 167/82 H Pulse Oximetry 99 97 99 08/31/18 17:06 08/31/18 17:36 08/31/18 18:00 Temperature Pulse Rate 96 H 98 H Respiratory Rate 38 H 11 L Blood Pressure 174/99 H 164/86 H Pulse Oximetry 98 96 08/31/18 18:06 08/31/18 18:36 08/31/18 19:00 Temperature Pulse Rate 98 H 98 H 99 H Respiratory Rate 18 19 38 H Blood Pressure 161/88 H 147/84 H Pulse Oximetry 96 97 90 L 08/31/18 19:06 08/31/18 19:36 08/31/18 20:00 Temperature 100 F H Pulse Rate 99 H 103 H 98 H Respiratory Rate 38 H 39 H 42 H Blood Pressure 146/81 H 137/75 Pulse Oximetry 92 L 96 97 08/31/18 20:06 08/31/18 20:36 08/31/18 21:00 Temperature Pulse Rate 97 H 97 H 96 H Respiratory Rate 8 L 19 43 H Blood Pressure 133/71 139/72 Pulse Oximetry 97 98 98 08/31/18 21:06 08/31/18 21:36 08/31/18 22:00 Temperature Pulse Rate 97 H 94 H 98 H Respiratory Rate 14 42 H 48 H Blood Pressure 137/68 141/73 H Pulse Oximetry 96 98 97 08/31/18 22:06 08/31/18 22:29 08/31/18 22:36 Temperature Pulse Rate 98 H 101 H Respiratory Rate 48 H 48 H Blood Pressure 135/70 123/61 Pulse Oximetry 95 96 95 08/31/18 23:00 08/31/18 23:06 08/31/18 23:36 Temperature Pulse Rate 99 H 98 H 98 H Respiratory Rate 24 39 H Blood Pressure 130/68 134/69 Pulse Oximetry 97 97 98 09/01/18 00:00 09/01/18 00:06 09/01/18 00:36 Temperature 99 F Pulse Rate 98 H 98 H 93 H Respiratory Rate 32 H Blood Pressure 135/73 112/61 Pulse Oximetry 99 99 97 09/01/18 01:00 09/01/18 01:06 09/01/18 01:36 Temperature Pulse Rate 97 H 96 H 95 H Respiratory Rate 0 L 1 L 39 H Blood Pressure 119/62 124/68 Pulse Oximetry 97 97 97 09/01/18 02:00 09/01/18 02:06 09/01/18 02:36 Temperature Pulse Rate 95 H 97 H 98 H Respiratory Rate 25 H 34 H 9 L Blood Pressure 130/70 146/83 H Pulse Oximetry 97 95 96 09/01/18 03:00 09/01/18 03:06 09/01/18 03:36 Temperature Pulse Rate 91 H 90 89 Respiratory Rate 38 H 37 H 40 H Blood Pressure 133/67 147/70 H Pulse Oximetry 99 99 100 09/01/18 04:00 09/01/18 04:06 09/01/18 04:36 Temperature Pulse Rate 90 90 92 H Respiratory Rate 39 H 37 H 40 H Blood Pressure 141/68 H 135/66 Pulse Oximetry 100 100 97 09/01/18 05:00 09/01/18 05:06 09/01/18 05:36 Temperature Pulse Rate 93 H 94 H 96 H Respiratory Rate 43 H 38 H 35 H Blood Pressure 142/67 H 145/70 H Pulse Oximetry 96 98 100 09/01/18 06:00 09/01/18 06:06 09/01/18 06:36 Temperature Pulse Rate 99 H 100 H 105 H Respiratory Rate 43 H 30 H 25 H Blood Pressure 155/72 H 145/78 H Pulse Oximetry 98 98 97 09/01/18 07:00 09/01/18 07:06 09/01/18 07:36 Temperature Pulse Rate 103 H 102 H 101 H Respiratory Rate 31 H 30 H 30 H Blood Pressure 143/89 H 153/89 H Pulse Oximetry 95 97 96 09/01/18 08:00 09/01/18 08:06 09/01/18 08:36 Temperature 99.2 F Pulse Rate 102 H 102 H 101 H Respiratory Rate 29 H 26 H 33 H Blood Pressure 154/82 H 155/80 H Pulse Oximetry 97 98 97 09/01/18 09:39 Temperature Pulse Rate 104 H Respiratory Rate 16 Blood Pressure Pulse Oximetry 96 I&O: Intake & Output 08/30/18 08/31/18 09/01/18 09/02/18 06:59 06:59 06:59 06:59 Intake Total 756 / 756 1277 / 1277 Output Total 1645 / 1645 3325 / 3325 1200 / 1200 Balance -889 / -889 -3325 / -3325 77 / 77 Weight 86.4 kg 82.5 kg 83.3 kg Physical Exam: CONSTITUTIONAL/GENERAL: This is an adequately nourished patient with c collar, in no apparent distress. TUBES/LINES/DRAINS: PEG tube, escamilla, t-piece SKIN: No jaundice, rashes, or lesions. Ecchymoses on upper extremities. No wounds seen anteriorly. Skin temperature appropriate. Not diaphoretic. HEAD: Atraumatic. Normocephalic. EYES: Pupils equal, round, and barely discernible reaction to light. Extraocular motions intact. No scleral icterus. No injection or drainage. Fundi not examined. ENT: Hearing grossly normal. Nose without bleeding or purulent drainage. NECK: + c collar CARDIOVASCULAR: RRR without murmurs, gallops, or rubs. No JVD. Peripheral pulses symmetric. RESPIRATORY/CHEST: Symmetric, unlabored respirations. Clear to auscultation. Breath sounds equal bilaterally. No wheezes, rales, or rhonchi. GASTROINTESTINAL: Abdomen soft, non-tender, mildly distended. No hepato- splenomegaly, or palpable masses. No guarding. Bowel sounds present. +PEG tube GENITOURINARY: Without palpable bladder distension. Escamilla catheter in place. MUSCULOSKELETAL: Extremities without clubbing, cyanosis. + BUE edema. No joint tenderness or effusion noted. No calf tenderness. No mottling or clubbing. NEUROLOGICAL: Awake. makes eye contact briefly on request but does not follow any other commands. does not move extremities. nonverbal. minimally responsive. PSYCHIATRIC: No obvious anxiety/depression. no apparent hallucinations or other psychotic thought process. Diagnostic Tests Laboratory: Laboratory Results - last 72 hr 08/30/18 08/30/18 08/30/18 13:27 19:03 19:03 WBC 10.9 RBC 3.59 L Hgb 11.8 L Hct 33.3 L MCV 92.7 MCH 32.9 MCHC 35.5 RDW 14.5 Plt Count 540 H MPV 7.0 Neut % (Auto) 71.1 H Lymph % (Auto) 13.4 [place] % (Auto) 7.9 Eos % (Auto) 6.2 H Baso % (Auto) 1.4 Neut # (Auto) 7.8 H Lymph # (Auto) 1.5 [place] # (Auto) 0.9 Eos # (Auto) 0.7 H Baso # (Auto) 0.2 WBC Differential . Differential Comment Auto diff final Puncture Site Patient Temperature O2 Saturation ABG pH ABG pCO2 ABG pO2 ABG HCO3 ABG O2 Content ABG Base Excess ABG Methemoglobin [place] Test Hemoglobin Carboxyhemoglobin O2 Delivery Device Liter Flow Inspired O2 Critical Value Sodium Potassium Chloride Carbon Dioxide Anion Gap BUN Creatinine Estimated GFR Random Glucose Hemoglobin A1c Lactic Acid 1.8 Calcium Total Bilirubin AST ALT Alkaline Phosphatase Ammonia 15 Total Protein Albumin Triglycerides Cholesterol LDL Cholesterol, Calc HDL Cholesterol Cholesterol/HDL Ratio Urine Color Urine Clarity Urine pH Ur Specific [place] Urine Protein Urine Glucose (UA) Urine Ketones Urine Occult Blood Urine Nitrate Urine Bilirubin Urine Urobilinogen Ur Leukocyte Esterase Urine RBC Urine WBC Urine Bacteria Hyaline Casts Micro UA Comment Ur Microscopic Review Urine Culture Comments 08/30/18 08/30/18 08/31/18 19:03 19:15 01:45 WBC RBC Hgb Hct MCV MCH MCHC RDW Plt Count MPV Neut % (Auto) Lymph % (Auto) [place] % (Auto) Eos % (Auto) Baso % (Auto) Neut # (Auto) Lymph # (Auto) [place] # (Auto) Eos # (Auto) Baso # (Auto) WBC Differential Differential Comment Puncture Site Left radial Right radial Patient Temperature 98.6 98.6 O2 Saturation 96 91 ABG pH 7.49 H 7.44 H ABG pCO2 34 L 40 ABG pO2 93 67 ABG HCO3 25 27 H ABG O2 Content 15.3 14.7 ABG Base Excess 2.0 2.7 H ABG Methemoglobin 1.1 1.2 [place] Test Present Present Hemoglobin 11.3 L 11.4 L Carboxyhemoglobin 1.1 0.9 O2 Delivery Device T-piece T-piece Liter Flow 5.00 10.00 Inspired O2 28 98 Critical Value No No Sodium Potassium Chloride Carbon Dioxide Anion Gap BUN Creatinine Estimated GFR Random Glucose Hemoglobin A1c Lactic Acid Calcium Total Bilirubin AST ALT Alkaline Phosphatase Ammonia 12 Total Protein Albumin Triglycerides Cholesterol LDL Cholesterol, Calc HDL Cholesterol Cholesterol/HDL Ratio Urine Color Urine Clarity Urine pH Ur Specific [place] Urine Protein Urine Glucose (UA) Urine Ketones Urine Occult Blood Urine Nitrate Urine Bilirubin Urine Urobilinogen Ur Leukocyte Esterase Urine RBC Urine WBC Urine Bacteria Hyaline Casts Micro UA Comment Ur Microscopic Review Urine Culture Comments 08/31/18 08/31/18 08/31/18 07:09 07:09 07:09 WBC 15.3 H RBC 3.90 L Hgb 11.9 L Hct 35.3 L MCV 90.6 MCH 30.5 MCHC 33.7 RDW 14.3 Plt Count 587 H MPV 6.9 L Neut % (Auto) 80.7 H Lymph % (Auto) 8.0 L [place] % (Auto) 7.3 Eos % (Auto) 3.1 Baso % (Auto) 0.9 Neut # (Auto) 12.4 H Lymph # (Auto) 1.2 [place] # (Auto) 1.1 H Eos # (Auto) 0.5 H Baso # (Auto) 0.1 WBC Differential . Differential Comment Auto diff final Puncture Site Patient Temperature O2 Saturation ABG pH ABG pCO2 ABG pO2 ABG HCO3 ABG O2 Content ABG Base Excess ABG Methemoglobin [place] Test Hemoglobin Carboxyhemoglobin O2 Delivery Device Liter Flow Inspired O2 Critical Value Sodium 145 Potassium 4.4 Chloride 110 H Carbon Dioxide 27.1 Anion Gap 8 BUN 16 Creatinine 1.05 Estimated GFR 73 L Random Glucose 106 Hemoglobin A1c 5.8 Lactic Acid Calcium 9.7 Total Bilirubin 0.3 AST 15 ALT 20 Alkaline Phosphatase 117 Ammonia Total Protein 7.6 D Albumin 2.8 L Triglycerides 93 Cholesterol 183 LDL Cholesterol, Calc 118 H HDL Cholesterol 46.6 Cholesterol/HDL Ratio 3.92 Urine Color Urine Clarity Urine pH Ur Specific [place] Urine Protein Urine Glucose (UA) Urine Ketones Urine Occult Blood Urine Nitrate Urine Bilirubin Urine Urobilinogen Ur Leukocyte Esterase Urine RBC Urine WBC Urine Bacteria Hyaline Casts Micro UA Comment Ur Microscopic Review Urine Culture Comments 08/31/18 11:00 WBC RBC Hgb Hct MCV MCH MCHC RDW Plt Count MPV Neut % (Auto) Lymph % (Auto) [place] % (Auto) Eos % (Auto) Baso % (Auto) Neut # (Auto) Lymph # (Auto) [place] # (Auto) Eos # (Auto) Baso # (Auto) WBC Differential Differential Comment Puncture Site Patient Temperature O2 Saturation ABG pH ABG pCO2 ABG pO2 ABG HCO3 ABG O2 Content ABG Base Excess ABG Methemoglobin [place] Test Hemoglobin Carboxyhemoglobin O2 Delivery Device Liter Flow Inspired O2 Critical Value Sodium Potassium Chloride Carbon Dioxide Anion Gap BUN Creatinine Estimated GFR Random Glucose Hemoglobin A1c Lactic Acid Calcium Total Bilirubin AST ALT Alkaline Phosphatase Ammonia Total Protein Albumin Triglycerides Cholesterol LDL Cholesterol, Calc HDL Cholesterol Cholesterol/HDL Ratio Urine Color Yellow Urine Clarity Clear Urine pH 7.0 Ur Specific [place] 1.017 Urine Protein 30 H Urine Glucose (UA) Negative Urine Ketones Negative Urine Occult Blood Negative Urine Nitrate Negative Urine Bilirubin Negative Urine Urobilinogen Less than 2 Ur Leukocyte Esterase Small H Urine RBC 21 H Urine WBC 17 H Urine Bacteria Rare H Hyaline Casts 4 Micro UA Comment Cath-culture ind Ur Microscopic Review Not Reportable Urine Culture Comments Cath-cult indicated Result Diagrams: 09/02/18 06:31 09/02/18 06:31 Microbiology: Microbiology 08/31/18 08:40 Gram Stain - Final Sputum - Tracheal Aspirate Sputum Culture - Preliminary Heavy growth normal respiratory sherman at 24 hours 08/31/18 11:00 Urine Culture - Preliminary Catheterized Urine Yeast - ID to follow 08/31/18 10:04 Aerobic Blood Culture - Preliminary Blood - Peripheral No growth in 1 day Anaerobic Blood Culture - Preliminary No growth in 1 day 08/31/18 10:10 Aerobic Blood Culture - Preliminary Blood - Peripheral No growth in 1 day Anaerobic Blood Culture - Preliminary No growth in 1 day Imaging: ITS Impressions Cervical Spine CT 08/09/18 09:23 CONCLUSION: 1. Fracturing through anterior flowing spurs at the anterior C6 level with the fracture extending into the anterior inferior left lateral aspect of the C6 vertebral body. Empty displacement is not seen. No other possible fractures are seen. 2. 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 3. Degenerative change. Head CTA 08/09/18 09:28 CONCLUSION: Negative CTA. Report was called by [Dr. Dutton to Dr. Faustin. A message was left on the voicemail. ] Neck CTA 08/09/18 09:28 CONCLUSION: Negative CTA of the neck. Cervical Spine MRI 08/10/18 00:00 CONCLUSION: 1. Fracturing through the prominent flowing spurs at the C6 level and extending into the anterior inferior aspect of C6 vertebral body without displacement. Minimal edema seen around the fracture site. 2. Prominent spurring extending from C4 to into the thoracic spine consistent with DISH. 3. Mild central disc protrusion at the C3-C4 level. 4. Mild disc protrusion with the apex at the left lateral recess region at the C5-C6 level. 5. Neural foraminal narrowing at the C3-C4 and C5-C6 levels. Head MRI 08/10/18 00:00 CONCLUSION: 1. No acute intracranial abnormality. 2. Mild atrophy. Lumbar Spine CT 08/10/18 00:00 CONCLUSION: 1. No acute abnormality seen. 2. Prominent spur seen throughout the thoracic and lumbar spine likely from DISH. 3. Mild disc bulges at the L3-L4 and L4-L5 levels. 4. Lower lumbar facet hypertrophy. Thoracic Spine CT 08/10/18 00:00 CONCLUSION: 1. No fracture is seen. 2. Prominent spurring seen throughout the thoracic spine but be secondary to DISH. 3. Subpleural areas of consolidation or atelectasis at the posterior lower lungs. Chest CTA 08/11/18 00:00 CONCLUSION: 1. No evidence of any pulmonary embolism. 2. There are bilateral infiltrates predominantly in the posterior mid to lower lung villarreal. 3. 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 Abdomen/Bladder Ultrasound 08/14/18 07:24 CONCLUSION: 1. Mild prominence of the right collecting system suggestive of some mild hydronephrosis. 2. The left kidney is unremarkable. 3. The urinary bladder appears to be distended with a volume of 1554 mL. Lumbar Puncture Fluoroscopy 08/15/18 12:27 CONCLUSION: 1. Uncomplicated fluoroscopically guided lumbar puncture. Venous Doppler Study 08/17/18 00:00 CONCLUSION: 1. Occlusive thrombus of the cephalic veins bilaterally. No other venous thrombosis. Abdomen X-Ray 08/26/18 00:00 CONCLUSION: 1. No evidence of small or large bowel dilatation. 2. Left basilar streakiness is noted consistent with atelectasis and/or mild infiltrate. 3. Degenerative changes are noted throughout the thoracolumbar spine and bilateral hips. Head CT 08/30/18 00:00 CONCLUSION: 1. No acute findings in the brain. 2. Air-fluid levels in the sphenoid sinuses. . Chest X-Ray 08/31/18 00:00 CONCLUSION: Persistent but improved airspace opacity in the left lower lobe which could represent atelectasis or airspace consolidation. Procedures: 08/10 intubated 08/11 extubated & reintubated 08/15 LP extubated and reintubated 08/18 tracheostomy 08/19 bronchoscopy 08/20 PEG tube placed Patient/Family Conference Present at Family Conference: phone conference with sister Gabriela Family Conference Time: 55 Family Conference Location: Telephone Issues Discussed: * Palliative care role, purpose, approach * Additional medical, psychosocial, and spiritual history * Patients general health, functional status, and cognitive changes in the months leading up to the current hospitalization * family understanding of the current medical problems * family understanding of prognosis * Patients goals of care as best understood from advance directives and/or conversations and/or values * Current medical treatment options and benefits/burdens of those options * decision maker - is elderly mother. 2 sisters communicate with her and we are working to arrange a teleconference * Likely scenarios comparing ongoing aggressive care with a transition to comfort measures only: to include plant custodian care, rehab, hospice at facility, hospice care center * Questions answered to the best of my ability * Palliative care contact information provided Goals pending further discussion with family. Spoke with pt's sister Gabriela who is in contact with another sibling, Naty Mac, who lives near pt's mother. Pt's 94 y/o mother is proxy decision maker and reportedly is willing to fulfill this role. I told Gabriela I would like to speak with mother, Serena Dooley. We are working on arranging a teleconference with Serena and Naty Estefania and possibly Gabriela as well. Gabriela expressed interest in making pt DNR and asked about hospice and the possibility of withholding tube feedings. I sent the DNR form for Serena to look over. Patient has no insurance and she was wanting to know what his options are. I discussed long-term placement, and the possibility of bringing him to hospice care center. Family to discuss further amongst themselves and I will follow up tomorrow. Assessment and Plan - Disease Oriented Problem List (1) Hypertensive urgency (2) Alcohol intoxication (3) Altered mental status (4) Respiratory failure requiring intubation - Symptom Scale (1) Pain 0-10 Scale: Unable to quantify (2) Dyspnea 0-10 Scale: Unable to quantify (3) Weakness 0-10 Scale: Unable to quantify Pertinent Non-Medical Issues: Psychosocial: Pt was born in [place] and moved to [place] during childhood. Pt has been in [place] since 1987. Pt has 4 siblings from whom he has been estranged until now. He has been unemployed for years. Per sister he "had a house and a car and a job but lost them." , no kids. Spiritual: pastoral care available Legal: Patient is not capacitated to make medical decisions. In the absence of designated healthcare surrogate proxy decision making falls to his mother. There are 2 sisters who are in close contact with her and appear to be working together. If for some reason the mother is unable to make decisions, proxy medical decision making would fall to the majority of 4 siblings. Ethical issues impacting care: none Important Contacts: sister Susie - [phone], Prognosis: 58-year-old male with history of alcohol abuse who presented 08/09/18 after being found down in his garage. He was noted to have twitching and jerking motions on arrival, elevated blood alcohol, elevated blood pressure. EEG showed encephalopathy. Has had numerous complications during this admission to include a drug rash, XIMENA, respiratory failure resulting eventually in tracheostomy. He remains at risk for further decline, complications, and setbacks. Code Status: Full Code Plan: - LEGAL DECISION MAKER - Patient is not capacitated to make medical decisions. In the absence of designated healthcare surrogate proxy decision making falls to his mother, Serena. There are 2 sisters who are in close contact with her and appear to be working together. If for some reason the mother is unable to make decisions, proxy medical decision making would fall to the majority of 4 siblings. - CODE STATUS- pending family discussion, for now full code - GOALS - Goals pending further discussion with family. Spoke with pt's sister Gabriela who is in contact with another sibling, Naty Mac, who lives near pt' s mother. Pt's 94 y/o mother is proxy decision maker and reportedly is willing to fulfill this role. I told Gabriela I would like to speak with mother, Serena Dooley. We are working on arranging a teleconference with Serena and Naty Mac and possibly Gabriela as well. Gabriela expressed interest in making pt DNR and asked about hospice and the possibility of withholding tube feedings. I sent the DNR form for Serena to look over. Patient has no insurance and she was wanting to know what his options are. I discussed long-term placement, and the possibility of bringing him to hospice care center. Family to discuss further amongst themselves and I will follow up tomorrow. - SYMPTOMS - = dyspnea - multifactorial. Possibly aspirated? intubated x 3 and then had tracheostomy. currently on t-piece fio2 28%. = pain- multifactorial. c6 fx, prolonged bedbound status, mult lines and catheters. has PRNn oxycodone, baclofen = agitation - intermittent agitation and restlessness. has PRN haldol, mary ann quetiapine, depakene = weakness - 2/2 encephalopathy, prolonged bedbound status, dyspnea. PT & OT following. pts abilities, responsiveness, and strength seem to be inconsistent from day to day - will f/u 09/02 - Palliative care will continue to follow during hospital course as condition evolves, to assist patient/decision-maker with understanding of medical conditions, weighing benefits/burdens of treatment options, for clarification of goals of treatment. Additionally will assist with any symptoms of palliative concern Appreciation Thank you for the opportunity to participate in the care of Jamaal Dooley. Attestation Attestation: To help prompt me to consider important information that might be impacting today's encounter and assessment, information from prior notes written by myself or my colleagues may have been "brought forward" into today's note. My signature on this note, however, is an attestation that I personally performed the exam, history, and/or decision-making noted today, and, unless otherwise indicated, the interactions with patient, family, and staff as well as the review of records all occurred today. I also attest that the listed assessment and stated plan reflect my best clinical judgment today based on the combination of historical information, prior notes, and today's exam/ interactions. When time spent is documented, it refers only to time spent today by the signer, or if indicated, combined time spent today by collaborating physician/nurse practitioner.
--- NOTE | 2018-09-01 17:24 | P.PNIM ---
Subjective Interval history: Late entry. Patient seen earlier this morning. He is lethargic, not following commands. He grimaces. Discussed with RN at bedside. Physical Exam Vital signs: Vital Signs 08/31/18 17:36 08/31/18 18:00 08/31/18 18:06 Temperature Pulse Rate 96 H 98 H 98 H Respiratory Rate 38 H 11 L 18 Blood Pressure 164/86 H 161/88 H Pulse Oximetry 98 96 96 08/31/18 18:36 08/31/18 19:00 08/31/18 19:06 Temperature Pulse Rate 98 H 99 H 99 H Respiratory Rate 19 38 H 38 H Blood Pressure 147/84 H 146/81 H Pulse Oximetry 97 90 L 92 L 08/31/18 19:36 08/31/18 20:00 08/31/18 20:06 Temperature 100 F H Pulse Rate 103 H 98 H 97 H Respiratory Rate 39 H 42 H 8 L Blood Pressure 137/75 133/71 Pulse Oximetry 96 97 97 08/31/18 20:36 08/31/18 21:00 08/31/18 21:06 Temperature Pulse Rate 97 H 96 H 97 H Respiratory Rate 19 43 H 14 Blood Pressure 139/72 137/68 Pulse Oximetry 98 98 96 08/31/18 21:36 08/31/18 22:00 08/31/18 22:06 Temperature Pulse Rate 94 H 98 H 98 H Respiratory Rate 42 H 48 H 48 H Blood Pressure 141/73 H 135/70 Pulse Oximetry 98 97 95 08/31/18 22:29 08/31/18 22:36 08/31/18 23:00 Temperature Pulse Rate 101 H 99 H Respiratory Rate 48 H 24 Blood Pressure 123/61 Pulse Oximetry 96 95 97 08/31/18 23:06 08/31/18 23:36 09/01/18 00:00 Temperature 99 F Pulse Rate 98 H 98 H 98 H Respiratory Rate 39 H Blood Pressure 130/68 134/69 Pulse Oximetry 97 98 99 09/01/18 00:06 09/01/18 00:36 09/01/18 01:00 Temperature Pulse Rate 98 H 93 H 97 H Respiratory Rate 32 H 0 L Blood Pressure 135/73 112/61 Pulse Oximetry 99 97 97 09/01/18 01:06 09/01/18 01:36 09/01/18 02:00 Temperature Pulse Rate 96 H 95 H 95 H Respiratory Rate 1 L 39 H 25 H Blood Pressure 119/62 124/68 Pulse Oximetry 97 97 97 09/01/18 02:06 09/01/18 02:36 09/01/18 03:00 Temperature Pulse Rate 97 H 98 H 91 H Respiratory Rate 34 H 9 L 38 H Blood Pressure 130/70 146/83 H Pulse Oximetry 95 96 99 09/01/18 03:06 09/01/18 03:36 09/01/18 04:00 Temperature Pulse Rate 90 89 90 Respiratory Rate 37 H 40 H 39 H Blood Pressure 133/67 147/70 H Pulse Oximetry 99 100 100 09/01/18 04:06 09/01/18 04:36 09/01/18 05:00 Temperature Pulse Rate 90 92 H 93 H Respiratory Rate 37 H 40 H 43 H Blood Pressure 141/68 H 135/66 Pulse Oximetry 100 97 96 09/01/18 05:06 09/01/18 05:36 09/01/18 06:00 Temperature Pulse Rate 94 H 96 H 99 H Respiratory Rate 38 H 35 H 43 H Blood Pressure 142/67 H 145/70 H Pulse Oximetry 98 100 98 09/01/18 06:06 09/01/18 06:36 09/01/18 07:00 Temperature Pulse Rate 100 H 105 H 103 H Respiratory Rate 30 H 25 H 31 H Blood Pressure 155/72 H 145/78 H Pulse Oximetry 98 97 95 09/01/18 07:06 09/01/18 07:36 09/01/18 08:00 Temperature Pulse Rate 102 H 101 H 102 H Respiratory Rate 30 H 30 H 29 H Blood Pressure 143/89 H 153/89 H Pulse Oximetry 97 96 97 09/01/18 08:06 09/01/18 08:36 09/01/18 09:39 Temperature 99.2 F Pulse Rate 102 H 101 H 104 H Respiratory Rate 26 H 33 H 16 Blood Pressure 154/82 H 155/80 H Pulse Oximetry 98 97 96 Intake & Output 08/31/18 09/01/18 09/01/18 18:59 06:59 18:59 Intake Total 187 / 187 1090 / 1090 Output Total 650 / 650 550 / 550 Balance -463 / -463 540 / 540 Weight 83.3 kg Intake: Tube Feeding 187 / 187 690 / 690 Water Bolus Amount 400 / 400 Output: Urine Amount (Catheter) 650 / 650 550 / 550 Indwelling Urethral Catheter 650 / 650 550 / 550 Other: Date of Last Bowel Movement 08/30/18 08/30/18 Narrative: GENERAL: Ill-appearing male on T-piece, in no acute distress NECK: Tracheostomy in place. Switzer collar in place CARDIOVASCULAR: Normal rate and regular rhythm. No significant murmurs RESPIRATORY: No accessory muscle use. Coarse breath sounds and upper airway transmission sounds. No wheezing. GASTROINTESTINAL: Abdomen soft, nondistended. MUSCULOSKELETAL: Extremities without clubbing, cyanosis or significant edema NEUROLOGICAL: Lethargic, briefly open eyes but does not follow commands. PSYCHIATRIC: Calm, no agitation. Urinary Catheter Management Indwelling Urethral Catheter: Cath placed during this visit: yes, but has since been removed by the nurse Reason for continuing: Acute urinary retention Insertion date: 08/28/18 Insertion time: 08:00 Removal date: 08/26/18 Removal time: 06:30 Condom: Cath placed during this visit: no Reason for continuing: Not indwelling catheter Straight: Cath placed during this visit: yes Reason for continuing: Chronic Urinary Retention Insertion date: 08/28/18 Insertion time: 08:00 Results Labs CBC & Chem 7: 08/31/18 07:09 08/31/18 07:09 Labs: Microbiology 08/31/18 08:40 Sputum - Tracheal Aspirate Gram Stain - Final 08/31/18 08:40 Sputum - Tracheal Aspirate Sputum Culture - Preliminary Heavy growth normal respiratory sherman at 24 hours 08/31/18 11:00 Catheterized Urine Urine Culture - Preliminary Yeast - ID to follow 08/31/18 10:04 Blood - Peripheral Aerobic Blood Culture - Preliminary No growth in 1 day 08/31/18 10:04 Blood - Peripheral Anaerobic Blood Culture - Preliminary No growth in 1 day 08/31/18 10:10 Blood - Peripheral Aerobic Blood Culture - Preliminary No growth in 1 day 08/31/18 10:10 Blood - Peripheral Anaerobic Blood Culture - Preliminary No growth in 1 day Assessment and Plan Plan 58-year-old male with who was found in the garage, with history of alcohol abuse , was brought to the ER for involuntary movements with jerking movements involving upper and lower extremities and head. There is concern for Wernicke encephalopathy versus anoxic brain injury. Metabolic encephalopathy- possibly Wernickes Anterior C6 fracture on Switzer J collar for 6 weeks with flaccid right sided extremtiies EtOH abuse/withdrawal -On trach -requires frequent suctioning. Continue Levsin -On tube feeding Jevity 1.5 goal rate of 60 cc/hr -MRI C-spine nondisplaced C6 fracture, continue Switzer J collar for 6 weeks per neurosurgery, moving all extremities spontaneously -Continue supplementation with thiamine, folic acid and multivitamin -Neuropsychiatry recommendations appreciated -Acetaminophen 650 by tube every 6 hours as needed fever -Haldol as needed for agitation -continue on Seroquel for now at 50 mg bid continue valproic acid 250 mg 3 times daily -wean oxycodone 10 mg every8 hours -continue baclofen 10 mg 3 times daily -As needed haloperidol 5 mg every 6 hours for breakthrough agitation -Continue PT efforts as tolerated Uncontrolled hypertension Tachycardia- due to agitation Hyperlipidemia -Blood pressure improving -Continue Lopressor 50 mg po q8 - Amlodipine 10 mg daily - was also on Lisinopril - was held- monitor and restart if needed -Continue hydralazine dose with hold parameters -Monitor blood pressure adjust medication as needed Acute hypoxic hypercapnic respiratory failure Status post percutaneous tracheostomy 08/[address] Conn -Tolerating T-piece- now on 40 %- RT ff- wean down as toelrated - prior to this was alredy down to 28% -continue Albuterol/ipratropium every 4 hours scheduled with albuterol aerosols every 2 hours as needed dyspnea -Bilateral cephalic DVTs, no PE on CTA chest -needs vigorous pulmonary toilette -Pulmonology following Severe protein calorie malnutrition Elevated transaminases downward trending Hypoalbuminemia Status post PEG by Dr. Jensen 08/20 Ileus, improved -Tube feeding with Jevity 1.5 goal 60 cc an hour- restart TF -Continue famotidine 20 mg IV twice daily for GI prophylaxis -Bowel regimen with docusate sodium, polythene glycol and lactulose -s/p Metoclopramide until 08/27 -Continue erythromycin base 250 mg 3 times daily until 08/31 -KUB on 08/26/18: No evidence of small or large bowel dilatation. Left basilar streakiness is noted consistent with atelectasis and/or mild infiltrate. -LFT improving, monitor Acute kidney injury Recurrent Urinary retention with mild bilateral hydronephrosis -Renal function improved. 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 Appreciate input.
--- NOTE | 2018-09-01 18:39 | P.PN ---
Subjective Interval history: He is more awake but will not follow commands. has copious secretions from trach. Physical Exam Vital signs: Vital Signs 08/31/18 18:36 08/31/18 19:00 08/31/18 19:06 Temperature Pulse Rate 98 H 99 H 99 H Respiratory Rate 19 38 H 38 H Blood Pressure 147/84 H 146/81 H Pulse Oximetry 97 90 L 92 L 08/31/18 19:36 08/31/18 20:00 08/31/18 20:06 Temperature 100 F H Pulse Rate 103 H 98 H 97 H Respiratory Rate 39 H 42 H 8 L Blood Pressure 137/75 133/71 Pulse Oximetry 96 97 97 08/31/18 20:36 08/31/18 21:00 08/31/18 21:06 Temperature Pulse Rate 97 H 96 H 97 H Respiratory Rate 19 43 H 14 Blood Pressure 139/72 137/68 Pulse Oximetry 98 98 96 08/31/18 21:36 08/31/18 22:00 08/31/18 22:06 Temperature Pulse Rate 94 H 98 H 98 H Respiratory Rate 42 H 48 H 48 H Blood Pressure 141/73 H 135/70 Pulse Oximetry 98 97 95 08/31/18 22:29 08/31/18 22:36 08/31/18 23:00 Temperature Pulse Rate 101 H 99 H Respiratory Rate 48 H 24 Blood Pressure 123/61 Pulse Oximetry 96 95 97 08/31/18 23:06 08/31/18 23:36 09/01/18 00:00 Temperature 99 F Pulse Rate 98 H 98 H 98 H Respiratory Rate 39 H Blood Pressure 130/68 134/69 Pulse Oximetry 97 98 99 09/01/18 00:06 09/01/18 00:36 09/01/18 01:00 Temperature Pulse Rate 98 H 93 H 97 H Respiratory Rate 32 H 0 L Blood Pressure 135/73 112/61 Pulse Oximetry 99 97 97 09/01/18 01:06 09/01/18 01:36 09/01/18 02:00 Temperature Pulse Rate 96 H 95 H 95 H Respiratory Rate 1 L 39 H 25 H Blood Pressure 119/62 124/68 Pulse Oximetry 97 97 97 09/01/18 02:06 09/01/18 02:36 09/01/18 03:00 Temperature Pulse Rate 97 H 98 H 91 H Respiratory Rate 34 H 9 L 38 H Blood Pressure 130/70 146/83 H Pulse Oximetry 95 96 99 09/01/18 03:06 09/01/18 03:36 09/01/18 04:00 Temperature Pulse Rate 90 89 90 Respiratory Rate 37 H 40 H 39 H Blood Pressure 133/67 147/70 H Pulse Oximetry 99 100 100 09/01/18 04:06 09/01/18 04:36 09/01/18 05:00 Temperature Pulse Rate 90 92 H 93 H Respiratory Rate 37 H 40 H 43 H Blood Pressure 141/68 H 135/66 Pulse Oximetry 100 97 96 09/01/18 05:06 09/01/18 05:36 09/01/18 06:00 Temperature Pulse Rate 94 H 96 H 99 H Respiratory Rate 38 H 35 H 43 H Blood Pressure 142/67 H 145/70 H Pulse Oximetry 98 100 98 09/01/18 06:06 09/01/18 06:36 09/01/18 07:00 Temperature Pulse Rate 100 H 105 H 103 H Respiratory Rate 30 H 25 H 31 H Blood Pressure 155/72 H 145/78 H Pulse Oximetry 98 97 95 09/01/18 07:06 09/01/18 07:36 09/01/18 08:00 Temperature Pulse Rate 102 H 101 H 102 H Respiratory Rate 30 H 30 H 29 H Blood Pressure 143/89 H 153/89 H Pulse Oximetry 97 96 97 09/01/18 08:06 09/01/18 08:36 09/01/18 09:39 Temperature 99.2 F Pulse Rate 102 H 101 H 104 H Respiratory Rate 26 H 33 H 16 Blood Pressure 154/82 H 155/80 H Pulse Oximetry 98 97 96 Intake & Output 08/31/18 09/01/18 09/01/18 18:59 06:59 18:59 Intake Total 187 / 187 1090 / 1090 Output Total 650 / 650 550 / 550 Balance -463 / -463 540 / 540 Weight 83.3 kg Intake: Tube Feeding 187 / 187 690 / 690 Water Bolus Amount 400 / 400 Output: Urine Amount (Catheter) 650 / 650 550 / 550 Indwelling Urethral Catheter 650 / 650 550 / 550 Other: Date of Last Bowel Movement 08/30/18 08/30/18 Narrative: restless, eyes opened, aphasic, not ff commands on tracheostomy - t piece- currently at 28 % PERRL ,sclera clear. neck with Trach tube in place. T bar Regular rhythm, tachycardic No accessory muscle use.Wheeze scattered,and no rales, or wheezes Abdomen soft, non-tender, nondistended. PEG in place escamilla in place no leg swelling motor -no purposeful movements LLE - moves spontaneously LUE- occasionally mason tender - Urinary Catheter Management Indwelling Urethral Catheter Cath placed during this visit: yes, but has since been removed by the nurse Reason for continuing: Acute urinary retention Insertion date: 08/28/18 Insertion time: 08:00 Removal date: 08/26/18 Removal time: 06:30 Condom Cath placed during this visit: no Reason for continuing: Not indwelling catheter Straight Cath placed during this visit: yes Reason for continuing: Chronic Urinary Retention Insertion date: 08/28/18 Insertion time: 08:00 Results - Labs CBC & Chem 7: 08/31/18 07:09 08/31/18 07:09 Microbiology 08/31/18 08:40 Sputum - Tracheal Aspirate Gram Stain - Final 08/31/18 08:40 Sputum - Tracheal Aspirate Sputum Culture - Preliminary Heavy growth normal respiratory sherman at 24 hours 08/31/18 11:00 Catheterized Urine Urine Culture - Preliminary Yeast - ID to follow 08/31/18 10:04 Blood - Peripheral Aerobic Blood Culture - Preliminary No growth in 1 day 08/31/18 10:04 Blood - Peripheral Anaerobic Blood Culture - Preliminary No growth in 1 day 08/31/18 10:10 Blood - Peripheral Aerobic Blood Culture - Preliminary No growth in 1 day 08/31/18 10:10 Blood - Peripheral Anaerobic Blood Culture - Preliminary No growth in 1 day Assessment and Plan - Assessment (1) Respiratory failure requiring intubation Code(s): J96.90 - Respiratory failure, unspecified, unspecified whether with hypoxia or hypercapnia Status: Acute (2) Pneumonia Code(s): J18.9 - Pneumonia, unspecified organism Status: Acute (3) Seizure Code(s): R56.9 - Unspecified convulsions Status: Acute (4) Hypertensive urgency Code(s): I16.0 - Hypertensive urgency Status: Acute (5) Alcohol intoxication Code(s): F10.929 - Alcohol use, unspecified with intoxication, unspecified Status: Acute (6) Altered mental status Code(s): R41.82 - Altered mental status, unspecified Status: Acute (7) Delirium due to general medical condition Code(s): F05 - Delirium due to known physiological condition Status: Acute - Plan 1. Cont T bar as tolerated FIO2 28 % 2. Reduce sedation. 3. Trach lavage and Suction.PRN 4. Continue Duoneb nebs Q6H 5. CBC BMP in am 6. Tube feeds at 50 CC 7. Continue Seroquel 100 mg 2 times daily 8. Add Robinul 1 mg TID 9. Levsin .125 mg QID PRN
[2018-09-02] MEDS: Baclofen 10 MG Tablet PO SCH ×3 (06:22→21:59)
[2018-09-02 07:05] LABS: Hematocrit 33.9 % (39.0-51.0); Hemoglobin 11.7 gm/dL (13.0-17.0); Mean Corpuscular HGB Conc 34.6 % (32.0-36.0); Mean Corpuscular Hemoglobin 31.6 pg (27.0-34.0); Mean Corpuscular Volume 91.3 fL (80.0-100.0); Platelet Count 437 th/mm3 (150-450); Red Blood Count 3.71 mil/mm3 (4.50-5.90); White Blood Count 9.4 th/mm3 (4.0-11.0)
[2018-09-02 07:38] LABS: Calcium 9.6 mg/dL (8.5-10.1); Potassium 4.2 meq/L (3.5-5.1)
--- NOTE | 2018-09-02 08:29 | P.PNIM ---
Subjective Interval history: in no acute distress. on Trach. BP tredn noted. Physical Exam Vital signs: Vital Signs 09/01/18 08:36 09/01/18 09:39 09/01/18 12:00 Temperature 99.2 F Pulse Rate 101 H 104 H 102 H Respiratory Rate 33 H 16 29 H Blood Pressure 155/80 H Pulse Oximetry 97 96 97 09/01/18 16:00 09/01/18 18:36 09/01/18 19:00 Temperature 99.8 F H Pulse Rate 102 H 94 H 93 H Respiratory Rate 29 H 19 21 Blood Pressure Pulse Oximetry 97 97 98 09/01/18 19:06 09/01/18 19:36 09/01/18 20:00 Temperature Pulse Rate 92 H 94 H 94 H Respiratory Rate 24 24 22 Blood Pressure 152/91 H 168/85 H Pulse Oximetry 98 97 97 09/01/18 20:06 09/01/18 20:36 09/01/18 21:00 Temperature Pulse Rate 96 H 96 H 98 H Respiratory Rate 22 21 22 Blood Pressure Pulse Oximetry 97 97 93 L 09/01/18 21:05 09/01/18 21:06 09/01/18 21:36 Temperature Pulse Rate 95 H 101 H Respiratory Rate 22 19 Blood Pressure 168/90 H Pulse Oximetry 99 96 96 09/01/18 22:00 09/01/18 22:06 09/01/18 22:36 Temperature Pulse Rate 103 H 101 H 102 H Respiratory Rate 21 21 21 Blood Pressure 157/92 H 158/90 H Pulse Oximetry 96 97 96 09/01/18 23:00 09/01/18 23:06 09/01/18 23:36 Temperature Pulse Rate 104 H 104 H 104 H Respiratory Rate 21 22 23 Blood Pressure 167/98 H Pulse Oximetry 95 95 96 09/02/18 00:00 09/02/18 00:06 09/02/18 00:36 Temperature 99.1 F Pulse Rate 106 H 105 H 110 H Respiratory Rate 23 28 H 22 Blood Pressure 172/95 H Pulse Oximetry 96 96 96 09/02/18 00:51 09/02/18 01:00 09/02/18 01:06 Temperature Pulse Rate 110 H 109 H 108 H Respiratory Rate 21 23 22 Blood Pressure Pulse Oximetry 98 97 97 09/02/18 01:36 09/02/18 01:46 09/02/18 02:00 Temperature Pulse Rate 106 H 106 H 105 H Respiratory Rate 23 30 H 18 Blood Pressure 177/113 H Pulse Oximetry 96 96 97 09/02/18 02:06 09/02/18 02:36 09/02/18 03:00 Temperature Pulse Rate 104 H 104 H 106 H Respiratory Rate 22 22 23 Blood Pressure Pulse Oximetry 96 95 97 09/02/18 03:06 09/02/18 03:36 09/02/18 04:00 Temperature Pulse Rate 106 H 109 H 105 H Respiratory Rate 24 17 22 Blood Pressure 185/100 H 186/90 H Pulse Oximetry 97 98 98 09/02/18 04:06 09/02/18 04:11 09/02/18 04:36 Temperature 99.7 F H Pulse Rate 105 H 108 H 105 H Respiratory Rate 23 16 22 Blood Pressure 183/96 H 183/101 H Pulse Oximetry 95 98 96 09/02/18 05:00 09/02/18 05:06 09/02/18 05:36 Temperature Pulse Rate 109 H 108 H 111 H Respiratory Rate 15 22 24 Blood Pressure 182/100 H 182/97 H Pulse Oximetry 96 97 96 09/02/18 06:00 09/02/18 06:06 09/02/18 06:36 Temperature Pulse Rate 112 H 110 H 108 H Respiratory Rate 22 22 22 Blood Pressure 171/99 H Pulse Oximetry 97 98 99 09/02/18 06:51 Temperature Pulse Rate 106 H Respiratory Rate 23 Blood Pressure Pulse Oximetry 98 Intake & Output 09/01/18 09/02/18 09/02/18 18:59 06:59 18:59 Intake Total 2264 / 2264 1223 / 1223 Output Total 1450 / 1450 850 / 850 Balance 814 / 814 373 / 373 Weight 84.2 kg Intake: Tube Feeding 1464 / 1464 703 / 703 Tube Irrigant 400 / 400 400 / 400 Water Bolus Amount 400 / 400 120 / 120 Output: Urine Amount (Catheter) 1450 / 1450 850 / 850 Indwelling Urethral Catheter 1450 / 1450 850 / 850 Other: Date of Last Bowel Movement 09/01/18 09/02/18 # Bowel Movements 1 1 Constitutional no acute distress Routine Respiratory Exam Present CTA bilaterally Routine Cardiovascular Exam Present tachycardia Routine Abdominal Exam Present soft Routine Extremities Exam Comments: no pedal edema. Routine Neurological Exam awake. Urinary Catheter Management Indwelling Urethral Catheter: Cath placed during this visit: yes, but has since been removed by the nurse Reason for continuing: Acute urinary retention Insertion date: 08/28/18 Insertion time: 08:00 Removal date: 08/26/18 Removal time: 06:30 Condom: Cath placed during this visit: no Reason for continuing: Not indwelling catheter Straight: Cath placed during this visit: yes Reason for continuing: Chronic Urinary Retention Insertion date: 08/28/18 Insertion time: 08:00 Results Labs CBC & Chem 7: 09/02/18 06:31 09/02/18 06:31 Labs: Microbiology 08/31/18 08:40 Sputum - Tracheal Aspirate Gram Stain - Final 08/31/18 08:40 Sputum - Tracheal Aspirate Sputum Culture - Preliminary Heavy growth normal respiratory sherman at 24 hours 08/31/18 11:00 Catheterized Urine Urine Culture - Preliminary Yeast - ID to follow 08/31/18 10:04 Blood - Peripheral Aerobic Blood Culture - Preliminary No growth in 1 day 08/31/18 10:04 Blood - Peripheral Anaerobic Blood Culture - Preliminary No growth in 1 day 08/31/18 10:10 Blood - Peripheral Aerobic Blood Culture - Preliminary No growth in 1 day 08/31/18 10:10 Blood - Peripheral Anaerobic Blood Culture - Preliminary No growth in 1 day Assessment and Plan Plan A/P Metabolic encephalopathy- possibly [place] Anterior C6 fracture on [place] J collar for 6 weeks with flaccid right sided extremities EtOH abuse/withdrawal -On trach -requires frequent suctioning. Continue Levsin -On tube feeding Jevity 1.5 goal rate of 60 cc/hr -MRI C-spine nondisplaced C6 fracture, continue [place] J collar for 6 weeks per neurosurgery, moving all extremities spontaneously -Continue supplementation with thiamine, folic acid and multivitamin -Neuropsychiatry recommendations appreciated -Acetaminophen 650 by tube every 6 hours as needed fever -Haldol as needed for agitation -continue on Seroquel for now at 50 mg bid continue valproic acid 250 mg 3 times daily -wean oxycodone 10 mg every8 hours -continue baclofen 10 mg 3 times daily -As needed haloperidol 5 mg every 6 hours for breakthrough agitation -Continue PT efforts as tolerated Uncontrolled hypertension Tachycardia- due to agitation Hyperlipidemia -Blood pressure improving -Continue Lopressor 50 mg po q8 - Amlodipine 10 mg daily - was also on Lisinopril - was held- monitor and restart if needed -Continue hydralazine; will increase the dose. -Monitor blood pressure adjust medication as needed Acute hypoxic hypercapnic respiratory failure Status post percutaneous tracheostomy 08/[address] Conn -Tolerating T-piece- now on 40 %- RT ff- wean down as toelrated - prior to this was alredy down to 28% -continue Albuterol/ipratropium every 4 hours scheduled with albuterol aerosols every 2 hours as needed dyspnea -Bilateral cephalic DVTs, no PE on CTA chest -needs vigorous pulmonary toilette -Pulmonology following Severe protein calorie malnutrition Elevated transaminases downward trending Hypoalbuminemia Status post PEG by Dr. Jensen 08/20 Ileus, improved -Tube feeding with Jevity 1.5 goal 60 cc an hour- restart TF -Continue famotidine 20 mg IV twice daily for GI prophylaxis -Bowel regimen with docusate sodium, polythene glycol and lactulose -s/p Metoclopramide until 08/27 -Continue erythromycin base 250 mg 3 times daily until 08/31 -KUB on 08/26/18: No evidence of small or large bowel dilatation. Left basilar streakiness is noted consistent with atelectasis and/or mild infiltrate. -LFT improving, monitor Acute kidney injury Recurrent Urinary retention with mild bilateral hydronephrosis -Renal function improved. 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
--- NOTE | 2018-09-02 08:33 | P.PNNPSY ---
- Progress Notes/Response to Treatment Contents of Sessions: Adjustment, Level of consciousness Time with Patient: 30 minutes Premorbid Psychological Status: Premorbid Cognitive, Emotional and Behavioral Status: Tenuous. The patient has high school years of education and a sporadic work history prior to this injury. The patient has possible prior psychiatric difficulties, as described above. Substance abuse history includes ETOH. Behavioral Reactions of Patient and Family/Support System: Tenuous. The patients family is experiencing ongoing issues of adjustment given the nature of the injury, and this aspect of recovery will require ongoing monitoring. Emotional/Behavioral Status of Patient and Family/Support System: Tenuous. Pertinent issues, if appropriate to this patients clinical care, are described in detail above. Maximizing Acute Care Outcome: The patient is presently managed on Seroquel 50 BID and VPA 250 BID and Librium and Versed. Consider increasing Seroquel to 75/75/100 and VPA to 250 TID, with a PRN Haldol, with goal of bringing agitation/restlessness down to below a total score of 21 on all subscores of the ABS, and so we can d/c benzo's which may be contributing to his agitation/confusion. Presently he is at 24.5 on the disinhibition subscore. He is generally past BEREKET at this point, successfully managed throughout his critical care treatment thus far. Promote as normal as possible sleep wake cycle, and 100 HS of Seroquel may assist in this endeavor. At this point in the recovery process, the patient does not have cognitive capacity as the patient is unable to understand a situation and its likely consequences, nor is the patient able to manipulate information rationally. Cognitive capacity will be assessed throughout the recovery process. Anticipated Problems: Ongoing areas of concern will include behavioral impulsivity, lack of insight and judgment, which is expected to improve with time and treatment. Treatment Plan: This clinician will continue to follow with you throughout the course of this patients critical care treatment, and I will be available to meet with the patients family/support system to facilitate their understanding and the ongoing care of their family member. The goals of neuropsychological intervention shall be both educational and supportive to the family/support system as is deemed clinically appropriate. 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 Progress Note Narrative: Day 24. The patient's neurobehavioral issues are managed, with recent ABS of 16 (17.5,14,14). He is managed on Seroquel 50 BID and VPA 250 TID. He has a PRN Haldol that is not needed. He is off benzo's. I will follow. - Diagnosis (1) Delirium due to general medical condition Status: Acute
[2018-09-02] MEDS: Polyethylene Glycol 3350 17 GM Packet PO SCH (09:16)
[2018-09-02] MEDS: Docusate Sodium Liq 100 MG/10 ML UDC G-TUBE SCH ×2 (09:16→20:42)
[2018-09-02] MEDS: hydrALAZINE 50 MG Tablet PO SCH ×4 (09:59→20:42)
[2018-09-02] MEDS: Metoprolol Tartrate 50 MG Tablet PO SCH ×3 (10:00→17:09)
[2018-09-02] MEDS: Famotidine 20 MG Tablet G-TUBE SCH ×2 (10:00→20:42)
[2018-09-02] MEDS: Folic Acid 1 MG Tablet PO SCH (10:00)
[2018-09-02] MEDS: Beneprotein Powder Packet G-TUBE SCH ×3 (10:00→17:10)
[2018-09-02] MEDS: QUEtiapine 100 MG Tablet PO SCH ×2 (10:01→20:43)
--- NOTE | 2018-09-02 10:28 | P.PNPAL ---
Reason for Visit Reason for visit: a. To assist with evaluation and management of symptoms including: pain, dyspnea, weakness, agitation b. To assist medical decision maker(s) with: better understanding of current medical conditions; weighing benefits/burdens of medical treatment options; making medical treatment decisions. Subjective Subjective/Interval History: This is a 58 y/o male with hx ETOH abuse who originally presented as a stroke alert [place] [facility] [place] after being found down at his sister's home. On arrival he was noted to have BP 226/139, elevated ethanol level,jerking and twitching movements and nystagmus. Imaging suggestive C6 fx and DISH. Suspected Wernicke's encephalopathy. Pt seen in room, nurse and RT at bedside. Pt appears more alert today, he has slid down in the bed and has his legs bent. He does make eye contact. I asked him to follow my finger with his eyes and he followed it to his right, appeared he had nystagmus. Asked him to squeeze my fingers and felt weak movement with left hand; none with right. Unable to follow further commands. He is mouthing some word but I cannot make them out. Had teleconference with Pt's mother Serena, sisters Breana and Gabriela, and Naty 's . Serena is proxy decision maker but is supported by pt's 2 sisters and soliciting their input. I reviewed pt's hospital course and current status. All seem to have reasonable understanding and insight and felt what questions they had, had been satisfactorily answered. All are in agreement for focus on comfort and request a hospice consult. They feel pt has no quality of life and would not want to go on living in this way. They opted to make him no code/DNR and wish that his life no longer be artificially prolonged with tube feeding. They would like for him to go to a hospice care center rather than stay indefinitely in the hospital. Family/Friend Interactions: as above Objective Vital Signs: Vital Signs 09/01/18 12:00 09/01/18 16:00 09/01/18 18:36 Temperature Pulse Rate 102 H 102 H 94 H Respiratory Rate 29 H 29 H 19 Blood Pressure Pulse Oximetry 97 97 97 09/01/18 19:00 09/01/18 19:06 09/01/18 19:36 Temperature 99.8 F H Pulse Rate 93 H 92 H 94 H Respiratory Rate 21 24 24 Blood Pressure 152/91 H 168/85 H Pulse Oximetry 98 98 97 09/01/18 20:00 09/01/18 20:06 09/01/18 20:36 Temperature Pulse Rate 94 H 96 H 96 H Respiratory Rate 22 22 21 Blood Pressure Pulse Oximetry 97 97 97 09/01/18 21:00 09/01/18 21:05 09/01/18 21:06 Temperature Pulse Rate 98 H 95 H Respiratory Rate 22 22 Blood Pressure 168/90 H Pulse Oximetry 93 L 99 96 09/01/18 21:36 09/01/18 22:00 09/01/18 22:06 Temperature Pulse Rate 101 H 103 H 101 H Respiratory Rate 19 21 21 Blood Pressure 157/92 H Pulse Oximetry 96 96 97 09/01/18 22:36 09/01/18 23:00 09/01/18 23:06 Temperature Pulse Rate 102 H 104 H 104 H Respiratory Rate 21 21 22 Blood Pressure 158/90 H Pulse Oximetry 96 95 95 09/01/18 23:36 09/02/18 00:00 09/02/18 00:06 Temperature Pulse Rate 104 H 106 H 105 H Respiratory Rate 23 23 28 H Blood Pressure 167/98 H 172/95 H Pulse Oximetry 96 96 96 09/02/18 00:36 09/02/18 00:51 09/02/18 01:00 Temperature 99.1 F Pulse Rate 110 H 110 H 109 H Respiratory Rate 22 21 23 Blood Pressure Pulse Oximetry 96 98 97 09/02/18 01:06 09/02/18 01:36 09/02/18 01:46 Temperature Pulse Rate 108 H 106 H 106 H Respiratory Rate 22 23 30 H Blood Pressure 177/113 H Pulse Oximetry 97 96 96 09/02/18 02:00 09/02/18 02:06 09/02/18 02:36 Temperature Pulse Rate 105 H 104 H 104 H Respiratory Rate 18 22 22 Blood Pressure Pulse Oximetry 97 96 95 09/02/18 03:00 09/02/18 03:06 09/02/18 03:36 Temperature Pulse Rate 106 H 106 H 109 H Respiratory Rate 23 24 17 Blood Pressure 185/100 H 186/90 H Pulse Oximetry 97 97 98 09/02/18 04:00 09/02/18 04:06 09/02/18 04:11 Temperature 99.7 F H Pulse Rate 105 H 105 H 108 H Respiratory Rate 22 23 16 Blood Pressure 183/96 H Pulse Oximetry 98 95 98 09/02/18 04:36 09/02/18 05:00 09/02/18 05:06 Temperature Pulse Rate 105 H 109 H 108 H Respiratory Rate 22 15 22 Blood Pressure 183/101 H 182/100 H Pulse Oximetry 96 96 97 09/02/18 05:36 09/02/18 06:00 09/02/18 06:06 Temperature Pulse Rate 111 H 112 H 110 H Respiratory Rate 24 22 22 Blood Pressure 182/97 H 171/99 H Pulse Oximetry 96 97 98 09/02/18 06:36 09/02/18 06:51 09/02/18 07:00 Temperature Pulse Rate 108 H 106 H 108 H Respiratory Rate 22 23 15 Blood Pressure 152/84 H Pulse Oximetry 99 98 96 09/02/18 08:00 09/02/18 09:00 09/02/18 10:15 Temperature 98.2 F Pulse Rate 108 H 113 H 104 H Respiratory Rate 15 20 28 H Blood Pressure 158/95 H 164/87 H Pulse Oximetry 98 97 98 Intake & Output 09/01/18 09/02/18 09/02/18 18:59 06:59 18:59 Intake Total 2264 / 2264 1223 / 1223 Output Total 1450 / 1450 850 / 850 Balance 814 / 814 373 / 373 Weight 84.2 kg Intake: Tube Feeding 1464 / 1464 703 / 703 Tube Irrigant 400 / 400 400 / 400 Water Bolus Amount 400 / 400 120 / 120 Output: Urine Amount (Catheter) 1450 / 1450 850 / 850 Indwelling Urethral Catheter 1450 / 1450 850 / 850 Other: Date of Last Bowel Movement 09/01/18 09/02/18 09/02/18 # Bowel Movements 1 1 Physical Exam: CONSTITUTIONAL/GENERAL: This is an adequately nourished patient with c collar, in no apparent distress. TUBES/LINES/DRAINS: PEG tube, escamilla, t-piece SKIN: No jaundice, rashes, or lesions. Ecchymoses on upper extremities. No wounds seen anteriorly. Skin temperature appropriate. Not diaphoretic. HEAD: Atraumatic. Normocephalic. EYES: Pupils equal, round, 5mm, and with barely discernible reaction to light. Mild nystagmus. Extraocular motions intact. No scleral icterus. No injection or drainage. Fundi not examined. ENT: Hearing grossly normal. Nose without bleeding or purulent drainage. NECK: + c collar CARDIOVASCULAR: RRR without murmurs, gallops, or rubs. No JVD. Peripheral pulses symmetric. RESPIRATORY/CHEST: Symmetric, unlabored respirations. Clear to auscultation. Breath sounds equal bilaterally. No wheezes, rales, or rhonchi. GASTROINTESTINAL: Abdomen soft, non-tender, mildly distended. No hepato- splenomegaly, or palpable masses. No guarding. Bowel sounds present. +PEG tube GENITOURINARY: Without palpable bladder distension. Escamilla catheter in place. MUSCULOSKELETAL: Extremities without clubbing, cyanosis. + BUE edema. No joint tenderness or effusion noted. No calf tenderness. No mottling or clubbing. NEUROLOGICAL: Awake and alert. makes eye contact when name is called, follows some commands. RUE weaker than LUE. nonverbal. PSYCHIATRIC: No obvious anxiety/depression. no apparent hallucinations or other psychotic thought process. Diagnostic Tests Laboratory: Laboratory Results - last 72 hr 08/30/18 08/30/18 08/30/18 13:27 19:03 19:03 WBC 10.9 RBC 3.59 L Hgb 11.8 L Hct 33.3 L MCV 92.7 MCH 32.9 MCHC 35.5 RDW 14.5 Plt Count 540 H MPV 7.0 Neut % (Auto) 71.1 H Lymph % (Auto) 13.4 [place] % (Auto) 7.9 Eos % (Auto) 6.2 H Baso % (Auto) 1.4 Neut # (Auto) 7.8 H Lymph # (Auto) 1.5 [place] # (Auto) 0.9 Eos # (Auto) 0.7 H Baso # (Auto) 0.2 WBC Differential . Differential Comment Auto diff final Puncture Site Patient Temperature O2 Saturation ABG pH ABG pCO2 ABG pO2 ABG HCO3 ABG O2 Content ABG Base Excess ABG Methemoglobin [place] Test Hemoglobin Carboxyhemoglobin O2 Delivery Device Liter Flow Inspired O2 Critical Value Sodium Potassium Chloride Carbon Dioxide Anion Gap BUN Creatinine Estimated GFR Random Glucose Hemoglobin A1c Lactic Acid 1.8 Calcium Total Bilirubin AST ALT Alkaline Phosphatase Ammonia 15 Total Protein Albumin Triglycerides Cholesterol LDL Cholesterol, Calc HDL Cholesterol Cholesterol/HDL Ratio Urine Color Urine Clarity Urine pH Ur Specific Outing Urine Protein Urine Glucose (UA) Urine Ketones Urine Occult Blood Urine Nitrate Urine Bilirubin Urine Urobilinogen Ur Leukocyte Esterase Urine RBC Urine WBC Urine Bacteria Hyaline Casts Micro UA Comment Ur Microscopic Review Urine Culture Comments Stl C.difficile DNA Amp St C. diff Tox Epid 027 08/30/18 08/30/18 08/31/18 19:03 19:15 01:45 WBC RBC Hgb Hct MCV MCH MCHC RDW Plt Count MPV Neut % (Auto) Lymph % (Auto) [place] % (Auto) Eos % (Auto) Baso % (Auto) Neut # (Auto) Lymph # (Auto) [place] # (Auto) Eos # (Auto) Baso # (Auto) WBC Differential Differential Comment Puncture Site Left radial Right radial Patient Temperature 98.6 98.6 O2 Saturation 96 91 ABG pH 7.49 H 7.44 H ABG pCO2 34 L 40 ABG pO2 93 67 ABG HCO3 25 27 H ABG O2 Content 15.3 14.7 ABG Base Excess 2.0 2.7 H ABG Methemoglobin 1.1 1.2 [place] Test Present Present Hemoglobin 11.3 L 11.4 L Carboxyhemoglobin 1.1 0.9 O2 Delivery Device T-piece T-piece Liter Flow 5.00 10.00 Inspired O2 28 98 Critical Value No No Sodium Potassium Chloride Carbon Dioxide Anion Gap BUN Creatinine Estimated GFR Random Glucose Hemoglobin A1c Lactic Acid Calcium Total Bilirubin AST ALT Alkaline Phosphatase Ammonia 12 Total Protein Albumin Triglycerides Cholesterol LDL Cholesterol, Calc HDL Cholesterol Cholesterol/HDL Ratio Urine Color Urine Clarity Urine pH Ur Specific Outing Urine Protein Urine Glucose (UA) Urine Ketones Urine Occult Blood Urine Nitrate Urine Bilirubin Urine Urobilinogen Ur Leukocyte Esterase Urine RBC Urine WBC Urine Bacteria Hyaline Casts Micro UA Comment Ur Microscopic Review Urine Culture Comments Stl C.difficile DNA Amp St C. diff Tox Epid 027 08/31/18 08/31/18 08/31/18 07:09 07:09 07:09 WBC 15.3 H RBC 3.90 L Hgb 11.9 L Hct 35.3 L MCV 90.6 MCH 30.5 MCHC 33.7 RDW 14.3 Plt Count 587 H MPV 6.9 L Neut % (Auto) 80.7 H Lymph % (Auto) 8.0 L [place] % (Auto) 7.3 Eos % (Auto) 3.1 Baso % (Auto) 0.9 Neut # (Auto) 12.4 H Lymph # (Auto) 1.2 [place] # (Auto) 1.1 H Eos # (Auto) 0.5 H Baso # (Auto) 0.1 WBC Differential . Differential Comment Auto diff final Puncture Site Patient Temperature O2 Saturation ABG pH ABG pCO2 ABG pO2 ABG HCO3 ABG O2 Content ABG Base Excess ABG Methemoglobin [place] Test Hemoglobin Carboxyhemoglobin O2 Delivery Device Liter Flow Inspired O2 Critical Value Sodium 145 Potassium 4.4 Chloride 110 H Carbon Dioxide 27.1 Anion Gap 8 BUN 16 Creatinine 1.05 Estimated GFR 73 L Random Glucose 106 Hemoglobin A1c 5.8 Lactic Acid Calcium 9.7 Total Bilirubin 0.3 AST 15 ALT 20 Alkaline Phosphatase 117 Ammonia Total Protein 7.6 D Albumin 2.8 L Triglycerides 93 Cholesterol 183 LDL Cholesterol, Calc 118 H HDL Cholesterol 46.6 Cholesterol/HDL Ratio 3.92 Urine Color Urine Clarity Urine pH Ur Specific Outing Urine Protein Urine Glucose (UA) Urine Ketones Urine Occult Blood Urine Nitrate Urine Bilirubin Urine Urobilinogen Ur Leukocyte Esterase Urine RBC Urine WBC Urine Bacteria Hyaline Casts Micro UA Comment Ur Microscopic Review Urine Culture Comments Stl C.difficile DNA Amp St C. diff Tox Epid 027 08/31/18 09/01/18 09/02/18 11:00 19:00 06:31 WBC 9.4 RBC 3.71 L Hgb 11.7 L Hct 33.9 L MCV 91.3 MCH 31.6 MCHC 34.6 RDW 14.0 Plt Count 437 MPV 7.0 Neut % (Auto) Lymph % (Auto) [place] % (Auto) Eos % (Auto) Baso % (Auto) Neut # (Auto) Lymph # (Auto) [place] # (Auto) Eos # (Auto) Baso # (Auto) WBC Differential Differential Comment Puncture Site Patient Temperature O2 Saturation ABG pH ABG pCO2 ABG pO2 ABG HCO3 ABG O2 Content ABG Base Excess ABG Methemoglobin Eldon Test Hemoglobin Carboxyhemoglobin O2 Delivery Device Liter Flow Inspired O2 Critical Value Sodium Potassium Chloride Carbon Dioxide Anion Gap BUN Creatinine Estimated GFR Random Glucose Hemoglobin A1c Lactic Acid Calcium Total Bilirubin AST ALT Alkaline Phosphatase Ammonia Total Protein Albumin Triglycerides Cholesterol LDL Cholesterol, Calc HDL Cholesterol Cholesterol/HDL Ratio Urine Color Yellow Urine Clarity Clear Urine pH 7.0 Ur Specific Outing 1.017 Urine Protein 30 H Urine Glucose (UA) Negative Urine Ketones Negative Urine Occult Blood Negative Urine Nitrate Negative Urine Bilirubin Negative Urine Urobilinogen Less than 2 Ur Leukocyte Esterase Small H Urine RBC 21 H Urine WBC 17 H Urine Bacteria Rare H Hyaline Casts 4 Micro UA Comment Cath-culture ind Ur Microscopic Review Not Reportable Urine Culture Comments Cath-cult indicated Stl C.difficile DNA Amp Negative St C. diff Tox Epid 027 Negative 09/02/18 06:31 WBC RBC Hgb Hct MCV MCH MCHC RDW Plt Count MPV Neut % (Auto) Lymph % (Auto) [place] % (Auto) Eos % (Auto) Baso % (Auto) Neut # (Auto) Lymph # (Auto) [place] # (Auto) Eos # (Auto) Baso # (Auto) WBC Differential Differential Comment Puncture Site Patient Temperature O2 Saturation ABG pH ABG pCO2 ABG pO2 ABG HCO3 ABG O2 Content ABG Base Excess ABG Methemoglobin [place] Test Hemoglobin Carboxyhemoglobin O2 Delivery Device Liter Flow Inspired O2 Critical Value Sodium 144 Potassium 4.2 Chloride 110 H Carbon Dioxide 26.0 Anion Gap 8 BUN 23 H Creatinine 0.96 Estimated GFR 81 L Random Glucose 123 H Hemoglobin A1c Lactic Acid Calcium 9.6 Total Bilirubin AST ALT Alkaline Phosphatase Ammonia Total Protein Albumin Triglycerides Cholesterol LDL Cholesterol, Calc HDL Cholesterol Cholesterol/HDL Ratio Urine Color Urine Clarity Urine pH Ur Specific Outing Urine Protein Urine Glucose (UA) Urine Ketones Urine Occult Blood Urine Nitrate Urine Bilirubin Urine Urobilinogen Ur Leukocyte Esterase Urine RBC Urine WBC Urine Bacteria Hyaline Casts Micro UA Comment Ur Microscopic Review Urine Culture Comments Stl C.difficile DNA Amp St C. diff Tox Epid 027 Result Diagrams: 09/02/18 06:31 09/02/18 06:31 Microbiology: Microbiology 08/31/18 08:40 Gram Stain - Final Sputum - Tracheal Aspirate Sputum Culture - Final Heavy growth normal respiratory sherman 08/31/18 11:00 Urine Culture - Preliminary Catheterized Urine Yeast - ID to follow 08/31/18 10:04 Aerobic Blood Culture - Preliminary Blood - Peripheral No growth in 1 day Anaerobic Blood Culture - Preliminary No growth in 1 day 08/31/18 10:10 Aerobic Blood Culture - Preliminary Blood - Peripheral No growth in 1 day Anaerobic Blood Culture - Preliminary No growth in 1 day Imaging: ITS Impressions Cervical Spine CT 08/09/18 09:23 CONCLUSION: 1. Fracturing through anterior flowing spurs at the anterior C6 level with the fracture extending into the anterior inferior left lateral aspect of the C6 vertebral body. Empty displacement is not seen. No other possible fractures are seen. 2. 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 3. Degenerative change. Head CTA 08/09/18 09:28 CONCLUSION: Negative CTA. Report was called by [Dr. Dutton to Dr. Faustin. A message was left on the voicemail. ] Neck CTA 08/09/18 09:28 CONCLUSION: Negative CTA of the neck. Cervical Spine MRI 08/10/18 00:00 CONCLUSION: 1. Fracturing through the prominent flowing spurs at the C6 level and extending into the anterior inferior aspect of C6 vertebral body without displacement. Minimal edema seen around the fracture site. 2. Prominent spurring extending from C4 to into the thoracic spine consistent with DISH. 3. Mild central disc protrusion at the C3-C4 level. 4. Mild disc protrusion with the apex at the left lateral recess region at the C5-C6 level. 5. Neural foraminal narrowing at the C3-C4 and C5-C6 levels. Head MRI 08/10/18 00:00 CONCLUSION: 1. No acute intracranial abnormality. 2. Mild atrophy. Lumbar Spine CT 08/10/18 00:00 CONCLUSION: 1. No acute abnormality seen. 2. Prominent spur seen throughout the thoracic and lumbar spine likely from DISH. 3. Mild disc bulges at the L3-L4 and L4-L5 levels. 4. Lower lumbar facet hypertrophy. Thoracic Spine CT 08/10/18 00:00 CONCLUSION: 1. No fracture is seen. 2. Prominent spurring seen throughout the thoracic spine but be secondary to DISH. 3. Subpleural areas of consolidation or atelectasis at the posterior lower lungs. Chest CTA 08/11/18 00:00 CONCLUSION: 1. No evidence of any pulmonary embolism. 2. There are bilateral infiltrates predominantly in the posterior mid to lower lung villarreal. 3. 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 Abdomen/Bladder Ultrasound 08/14/18 07:24 CONCLUSION: 1. Mild prominence of the right collecting system suggestive of some mild hydronephrosis. 2. The left kidney is unremarkable. 3. The urinary bladder appears to be distended with a volume of 1554 mL. Lumbar Puncture Fluoroscopy 08/15/18 12:27 CONCLUSION: 1. Uncomplicated fluoroscopically guided lumbar puncture. Venous Doppler Study 08/17/18 00:00 CONCLUSION: 1. Occlusive thrombus of the cephalic veins bilaterally. No other venous thrombosis. Abdomen X-Ray 08/26/18 00:00 CONCLUSION: 1. No evidence of small or large bowel dilatation. 2. Left basilar streakiness is noted consistent with atelectasis and/or mild infiltrate. 3. Degenerative changes are noted throughout the thoracolumbar spine and bilateral hips. Head CT 08/30/18 00:00 CONCLUSION: 1. No acute findings in the brain. 2. Air-fluid levels in the sphenoid sinuses. . Chest X-Ray 08/31/18 00:00 CONCLUSION: Persistent but improved airspace opacity in the left lower lobe which could represent atelectasis or airspace consolidation. Procedures: 08/10 intubated 08/11 extubated & reintubated 08/15 LP extubated and reintubated 08/18 tracheostomy 08/19 bronchoscopy 08/20 PEG tube placed Assessment and Plan - Disease Oriented Problem List (1) Hypertensive urgency (2) Alcohol intoxication (3) Altered mental status (4) Respiratory failure requiring intubation Pertinent Non-Medical Issues: Psychosocial: Pt was born in [place] and moved to [place] during childhood. Pt has been in [place] since 1987. Pt has 4 siblings from whom he has been estranged until now. He has been unemployed for years. Per sister he "had a house and a car and a job but lost them." , no kids. Spiritual: pastoral care available Legal: Patient is not capacitated to make medical decisions. In the absence of designated healthcare surrogate proxy decision making falls to his mother. Serena is supported by 2 of pts sisters, Naty and Gabriela, and has solicited their input. Ethical issues impacting care: none Important Contacts: proxy decision maker, pt's mother Serena lives in [facility]. She does have a cell phone but she is N[place] and one of her hearing aids is malfunctioning. Call Naty first, she lives close to [facility] and can arrange to pick Serena up for paper signing and/or teleconference where she can speak loud enough that Serena can hear. sister Susie - [phone], sister Naty (lives near mother Serena) [phone] Naty's email - for any papers that need to be signed- she will print them and bring them to Serena mother and proxy decision maker Serena Prognosis: 58-year-old male with history of alcohol abuse who presented 08/09/18 after being found down in his garage. He was noted to have twitching and jerking motions on arrival, elevated blood alcohol, elevated blood pressure. EEG showed encephalopathy. Has had numerous complications during this admission to include a drug rash, XIMENA, respiratory failure resulting eventually in tracheostomy. There has not been much improvement and his alertness and mentation fluctuate from day to day. There is suspicious for Wernicke's encephalopathy and if that is the case, it is ulnikely he would improve to his prior baseline. Some or most of his neurological deficits will likely remain. He remains at risk for additional complications and setbacks. Code Status: No Code DNR Plan: - LEGAL DECISION MAKER - Patient is not capacitated to make medical decisions. In the absence of designated healthcare surrogate proxy decision making falls to his mother. Serena is supported by 2 of pts sisters, Naty and Gabriela, and has solicited their input. - CODE STATUS- no code/DNR - GOALS - Goals comfort focused, no further aggressive interventions. Had teleconference with Pt's mother Serena, sisters Breana and Gabriela, and Naty's . All are in agreement for focus on comfort and request a hospice consult. They feel pt has no quality of life and would not want to go on living in this way. They opted to make him no code/DNR and wish that his life no longer be artificially prolonged with tube feeding. They would like for him to go to a hospice care center- they did not want him staying indefinitely in the hospital or having to live in a nursing facility. - SYMPTOMS - = dyspnea - multifactorial. Possibly aspirated? intubated x 3 and then had tracheostomy. currently on t-piece fio2 28% -o2 requirements have fluctuated. = pain- multifactorial. c6 fx, prolonged bedbound status, mult lines and catheters. has PRNn oxycodone, baclofen = agitation - intermittent agitation and restlessness. sedating meds being weaned. has PRN haldol, mary ann quetiapine, depakene = weakness - 2/2 encephalopathy suspected Wernicke's, prolonged bedbound status , dyspnea. PT & OT following. pts abilities, responsiveness, and strength seem to fluctuate from day to day - hospice consult pending - d/w Dr Hummel - Palliative care will continue to follow during hospital course as condition evolves, to assist patient/decision-maker with understanding of medical conditions, weighing benefits/burdens of treatment options, for clarification of goals of treatment. Additionally will assist with any symptoms of palliative concern Attestation Attestation: To help prompt me to consider important information that might be impacting today's encounter and assessment, information from prior notes written by myself or my colleagues may have been "brought forward" into today's note. My signature on this note, however, is an attestation that I personally performed the exam, history, and/or decision-making noted today, and, unless otherwise indicated, the interactions with patient, family, and staff as well as the review of records all occurred today. I also attest that the listed assessment and stated plan reflect my best clinical judgment today based on the combination of historical information, prior notes, and today's exam/ interactions. When time spent is documented, it refers only to time spent today by the signer, or if indicated, combined time spent today by collaborating physician/nurse practitioner.
--- NOTE | 2018-09-02 14:57 | P.DIET ---
Nutritional Evaluation Type of nutrition evaluation: follow-up Nutrition consult regarding: Tube Feeding Objective - Diagnosis AMS, C6 Vertebral fx, alcohol abuse - Objective % IBW: 111 (IBW = 178#) Body Weight Used for Calculations: Actual (87.4) Energy Needs - Lower Range (kCal/kg): 25 Energy Needs - Upper Range (kCal/kg): 30 Lower Limit kCal/kg (kCals): 2,185 Upper Limit kCal/kg (kCals): 2,622 Lower Limit Protein Factor (Grams per Kg): 1.0 Upper Limit Protein Factor (Grams per Kg): 1.5 Lower Protein Needs (Protein): 87 Upper Protein Needs (Protein): 131 Dietitian Reviewed in Medical Record: Curent medications, Intake & Output, Labs , Medical history, Tube feeding Diet Order: NPO Objective Comments: PMH includes: Alcohol Abuse, HTN Meds include: Coreg, Pepcid, IV Folic Acid, MV, Thiamine, Haldol, Seroquel, Ativan, Lactulose Assessment Assessment: Pt remains at high nutrition risk 2' to his need for TFing. Pt is currently receiving Jevity 1.5 @ 60 mls/hr to provide 2160 kcals, 92 gms of protein and 1094 mls of free water. Beneprotein has been ordered; 1 pack tid which will provide an additional 18 gms protein and 75 kcals. Labs, wts and clinical course reviewed. Recommendations: Continue Jevity 1.5 @ 60 mls/hr goal Beneprotein 1 pack tid as ordered Dietitian to Monitor: Lab values, Intake & Output, Tube feeding tolerance, Weight change, Medical course
--- NOTE | 2018-09-02 18:41 | P.PN ---
Subjective Interval history: Remains lethargic and on a T-bar 28% FiO2. No meaningful response to commands. Tolerating tube feedings. Has copious secretions from trach. No fever Physical Exam Vital signs: Vital Signs 09/01/18 19:00 09/01/18 19:06 09/01/18 19:36 Temperature 99.8 F H Pulse Rate 93 H 92 H 94 H Respiratory Rate 21 24 24 Blood Pressure 152/91 H 168/85 H Pulse Oximetry 98 98 97 09/01/18 20:00 09/01/18 20:06 09/01/18 20:36 Temperature Pulse Rate 94 H 96 H 96 H Respiratory Rate 22 22 21 Blood Pressure Pulse Oximetry 97 97 97 09/01/18 21:00 09/01/18 21:05 09/01/18 21:06 Temperature Pulse Rate 98 H 95 H Respiratory Rate 22 22 Blood Pressure 168/90 H Pulse Oximetry 93 L 99 96 09/01/18 21:36 09/01/18 22:00 09/01/18 22:06 Temperature Pulse Rate 101 H 103 H 101 H Respiratory Rate 19 21 21 Blood Pressure 157/92 H Pulse Oximetry 96 96 97 09/01/18 22:36 09/01/18 23:00 09/01/18 23:06 Temperature Pulse Rate 102 H 104 H 104 H Respiratory Rate 21 21 22 Blood Pressure 158/90 H Pulse Oximetry 96 95 95 09/01/18 23:36 09/02/18 00:00 09/02/18 00:06 Temperature Pulse Rate 104 H 106 H 105 H Respiratory Rate 23 23 28 H Blood Pressure 167/98 H 172/95 H Pulse Oximetry 96 96 96 09/02/18 00:36 09/02/18 00:51 09/02/18 01:00 Temperature 99.1 F Pulse Rate 110 H 110 H 109 H Respiratory Rate 22 21 23 Blood Pressure Pulse Oximetry 96 98 97 09/02/18 01:06 09/02/18 01:36 09/02/18 01:46 Temperature Pulse Rate 108 H 106 H 106 H Respiratory Rate 22 23 30 H Blood Pressure 177/113 H Pulse Oximetry 97 96 96 09/02/18 02:00 09/02/18 02:06 09/02/18 02:36 Temperature Pulse Rate 105 H 104 H 104 H Respiratory Rate 18 22 22 Blood Pressure Pulse Oximetry 97 96 95 09/02/18 03:00 01/15/19 03:06 09/02/18 03:36 Temperature Pulse Rate 106 H 106 H 109 H Respiratory Rate 23 24 17 Blood Pressure 185/100 H 186/90 H Pulse Oximetry 97 97 98 09/02/18 04:00 09/02/18 04:06 09/02/18 04:11 Temperature 99.7 F H Pulse Rate 105 H 105 H 108 H Respiratory Rate 22 23 16 Blood Pressure 183/96 H Pulse Oximetry 98 95 98 09/02/18 04:36 09/02/18 05:00 09/02/18 05:06 Temperature Pulse Rate 105 H 109 H 108 H Respiratory Rate 22 15 22 Blood Pressure 183/101 H 182/100 H Pulse Oximetry 96 96 97 09/02/18 05:36 09/02/18 06:00 09/02/18 06:06 Temperature Pulse Rate 111 H 112 H 110 H Respiratory Rate 24 22 22 Blood Pressure 182/97 H 171/99 H Pulse Oximetry 96 97 98 09/02/18 06:36 09/02/18 06:51 09/02/18 07:00 Temperature Pulse Rate 108 H 106 H 108 H Respiratory Rate 22 23 15 Blood Pressure 152/84 H Pulse Oximetry 99 98 96 09/02/18 08:00 09/02/18 09:00 09/02/18 10:00 Temperature 98.2 F Pulse Rate 108 H 113 H 108 H Respiratory Rate 15 20 24 Blood Pressure 158/95 H 164/87 H 177/94 H Pulse Oximetry 98 97 95 09/02/18 10:15 09/02/18 11:00 09/02/18 12:00 Temperature 98.4 F Pulse Rate 104 H 91 H 87 Respiratory Rate 28 H 25 H 24 Blood Pressure 166/81 H 156/78 H Pulse Oximetry 98 99 97 09/02/18 13:00 09/02/18 14:00 09/02/18 15:00 Temperature Pulse Rate 87 85 83 Respiratory Rate 26 H 25 H 26 H Blood Pressure 153/80 H 169/85 H 157/78 H Pulse Oximetry 99 99 97 09/02/18 16:00 09/02/18 17:00 09/02/18 18:00 Temperature 98.2 F Pulse Rate 79 78 77 Respiratory Rate 24 23 20 Blood Pressure 148/99 H 164/84 H 155/87 H Pulse Oximetry 99 98 98 Intake & Output 01/14/19 01/15/19 01/15/19 18:59 06:59 18:59 Intake Total 2264 / 2264 1223 / 1223 833 / 833 Output Total 1450 / 1450 850 / 850 525 / 525 Balance 814 / 814 373 / 373 308 / 308 Weight 84.2 kg Intake: Tube Feeding 1464 / 1464 703 / 703 653 / 653 Tube Irrigant 400 / 400 400 / 400 60 / 60 Water Bolus Amount 400 / 400 120 / 120 120 / 120 Output: Urine Amount (Catheter) 1450 / 1450 850 / 850 525 / 525 Indwelling Urethral Catheter 1450 / 1450 850 / 850 525 / 525 Other: Date of Last Bowel Movement 09/01/18 09/02/18 09/02/18 # Bowel Movements 1 1 0 Narrative: Calm today with eyes opened, aphasic, not ff commands on tracheostomy - T piece- currently at 28 % PERRL ,sclera clear. neck with Trach tube in place. T bar Regular rhythm, tachycardic No accessory muscle use.Wheeze scattered,and no rales Abdomen soft, non-tender, nondistended. PEG in place escamilla in place no leg swelling motor -no purposeful movements - Urinary Catheter Management Indwelling Urethral Catheter Cath placed during this visit: yes, but has since been removed by the nurse Reason for continuing: Acute urinary retention Insertion date: 08/28/18 Insertion time: 08:00 Removal date: 08/26/18 Removal time: 06:30 Condom Cath placed during this visit: no Reason for continuing: Not indwelling catheter Straight Cath placed during this visit: yes Reason for continuing: Chronic Urinary Retention Insertion date: 08/28/18 Insertion time: 08:00 Results - Labs CBC & Chem 7: 09/02/18 06:31 09/02/18 06:31 Laboratory Results - last 24 hr 08/31/18 09/01/18 09/02/18 11:00 19:00 06:31 WBC 9.4 RBC 3.71 L Hgb 11.7 L Hct 33.9 L MCV 91.3 MCH 31.6 MCHC 34.6 RDW 14.0 Plt Count 437 MPV 7.0 Sodium Potassium Chloride Carbon Dioxide Anion Gap BUN Creatinine Estimated GFR Random Glucose Calcium Urine Color Yellow Urine Clarity Clear Urine pH 7.0 Ur Specific [place] 1.017 Urine Protein 30 H Urine Glucose (UA) Negative Urine Ketones Negative Urine Occult Blood Negative Urine Nitrate Negative Urine Bilirubin Negative Urine Urobilinogen Less than 2 Ur Leukocyte Esterase Small H Urine RBC 21 H Urine WBC 17 H Urine Bacteria Rare H Hyaline Casts 4 Micro UA Comment Cath-culture ind Urine Culture Comments Cath-cult indicated Stl C.difficile DNA Amp Negative St C. diff Tox Epid 027 Negative 09/02/18 06:31 WBC RBC Hgb Hct MCV MCH MCHC RDW Plt Count MPV Sodium 144 Potassium 4.2 Chloride 110 H Carbon Dioxide 26.0 Anion Gap 8 BUN 23 H Creatinine 0.96 Estimated GFR 81 L Random Glucose 123 H Calcium 9.6 Urine Color Urine Clarity Urine pH Ur Specific [place] Urine Protein Urine Glucose (UA) Urine Ketones Urine Occult Blood Urine Nitrate Urine Bilirubin Urine Urobilinogen Ur Leukocyte Esterase Urine RBC Urine WBC Urine Bacteria Hyaline Casts Micro UA Comment Urine Culture Comments Stl C.difficile DNA Amp St C. diff Tox Epid 027 Microbiology 08/31/18 11:00 Catheterized Urine Urine Culture - Preliminary Sanjuanita parapsilosis 08/31/18 10:04 Blood - Peripheral Aerobic Blood Culture - Preliminary No growth in 2 days 08/31/18 10:04 Blood - Peripheral Anaerobic Blood Culture - Preliminary No growth in 2 days 08/31/18 10:10 Blood - Peripheral Aerobic Blood Culture - Preliminary No growth in 2 days 08/31/18 10:10 Blood - Peripheral Anaerobic Blood Culture - Preliminary No growth in 2 days 08/31/18 08:40 Sputum - Tracheal Aspirate Gram Stain - Final 08/31/18 08:40 Sputum - Tracheal Aspirate Sputum Culture - Final Heavy growth normal respiratory sherman Assessment and Plan - Assessment (1) Respiratory failure requiring intubation Code(s): J96.90 - Respiratory failure, unspecified, unspecified whether with hypoxia or hypercapnia Status: Acute (2) Pneumonia Code(s): J18.9 - Pneumonia, unspecified organism Status: Acute (3) Seizure Code(s): R56.9 - Unspecified convulsions Status: Acute (4) Hypertensive urgency Code(s): I16.0 - Hypertensive urgency Status: Acute (5) Alcohol intoxication Code(s): F10.929 - Alcohol use, unspecified with intoxication, unspecified Status: Acute (6) Altered mental status Code(s): R41.82 - Altered mental status, unspecified Status: Acute (7) Delirium due to general medical condition Code(s): F05 - Delirium due to known physiological condition Status: Acute - Plan 1. Cont T bar as tolerated FIO2 28 % 2. Chest x-ray in a.m. 3. Trach lavage and Suction.PRN 4. Continue Duoneb nebs Q6H 5. Family decided on hospice care 6. Tube feeds at 50 CC 7. Continue Seroquel 100 mg 2 times daily 8. Add Robinul 1 mg TID 9. Levsin .125 mg QID PRN
[2018-09-03] MEDS: Baclofen 10 MG Tablet PO SCH ×2 (06:34→14:15)
--- NOTE | 2018-09-03 07:41 | P.PNIM ---
Subjective Interval history: in no acute distress. denies pain. no fever. Physical Exam Vital signs: Vital Signs 09/02/18 08:00 09/02/18 09:00 09/02/18 10:00 Temperature 98.2 F Pulse Rate 108 H 113 H 108 H Respiratory Rate 15 20 24 Blood Pressure 158/95 H 164/87 H 177/94 H Pulse Oximetry 98 97 95 09/02/18 10:15 09/02/18 11:00 09/02/18 12:00 Temperature 98.4 F Pulse Rate 104 H 91 H 87 Respiratory Rate 28 H 25 H 24 Blood Pressure 166/81 H 156/78 H Pulse Oximetry 98 99 97 09/02/18 13:00 09/02/18 14:00 09/02/18 15:00 Temperature Pulse Rate 87 85 83 Respiratory Rate 26 H 25 H 26 H Blood Pressure 153/80 H 169/85 H 157/78 H Pulse Oximetry 99 99 97 09/02/18 16:00 09/02/18 17:00 09/02/18 18:00 Temperature 98.2 F Pulse Rate 79 78 77 Respiratory Rate 24 23 20 Blood Pressure 148/99 H 164/84 H 155/87 H Pulse Oximetry 99 98 98 09/02/18 20:00 09/02/18 20:08 09/03/18 03:51 Temperature Pulse Rate 81 Respiratory Rate Blood Pressure Pulse Oximetry 98 99 99 Intake & Output 09/02/18 09/03/18 09/03/18 18:59 06:59 18:59 Intake Total 833 / 833 Output Total 525 / 525 Balance 308 / 308 Intake: Tube Feeding 653 / 653 Tube Irrigant 60 / 60 Water Bolus Amount 120 / 120 Output: Urine Amount (Catheter) 525 / 525 Indwelling Urethral Catheter 525 / 525 Other: Date of Last Bowel Movement 09/02/18 09/02/18 # Bowel Movements 0 Constitutional no acute distress Routine Respiratory Exam Present CTA bilaterally Routine Cardiovascular Exam Present RRR Routine Abdominal Exam Present soft Routine Extremities Exam Comments: no pedal edema. Routine Neurological Exam Present alert Urinary Catheter Management Indwelling Urethral Catheter: Cath placed during this visit: yes, but has since been removed by the nurse Reason for continuing: Acute urinary retention Insertion date: 08/28/18 Insertion time: 08:00 Removal date: 08/26/18 Removal time: 06:30 Condom: Cath placed during this visit: no Reason for continuing: Not indwelling catheter Straight: Cath placed during this visit: yes Reason for continuing: Chronic Urinary Retention Insertion date: 08/28/18 Insertion time: 08:00 Results Labs CBC & Chem 7: 09/02/18 06:31 09/02/18 06:31 Labs: Microbiology 08/31/18 11:00 Catheterized Urine Urine Culture - Preliminary Sanjuanita parapsilosis 08/31/18 10:04 Blood - Peripheral Aerobic Blood Culture - Preliminary No growth in 2 days 08/31/18 10:04 Blood - Peripheral Anaerobic Blood Culture - Preliminary No growth in 2 days 08/31/18 10:10 Blood - Peripheral Aerobic Blood Culture - Preliminary No growth in 2 days 08/31/18 10:10 Blood - Peripheral Anaerobic Blood Culture - Preliminary No growth in 2 days 08/31/18 08:40 Sputum - Tracheal Aspirate Gram Stain - Final 08/31/18 08:40 Sputum - Tracheal Aspirate Sputum Culture - Final Heavy growth normal respiratory sherman Assessment and Plan Plan A/P Metabolic encephalopathy- possibly [place]ernickes Anterior C6 fracture on [place] J collar for 6 weeks with flaccid right sided extremities EtOH abuse/withdrawal -On trach -requires frequent suctioning. Continue Levsin -On tube feeding Jevity 1.5 goal rate of 60 cc/hr -MRI C-spine nondisplaced C6 fracture, continue [place] J collar for 6 weeks per neurosurgery, moving all extremities spontaneously -Continue supplementation with thiamine, folic acid and multivitamin -Neuropsychiatry recommendations appreciated -Acetaminophen 650 by tube every 6 hours as needed fever -Haldol as needed for agitation -continue on Seroquel for now at 50 mg bid continue valproic acid 250 mg 3 times daily -wean oxycodone 10 mg every8 hours -continue baclofen 10 mg 3 times daily -As needed haloperidol 5 mg every 6 hours for breakthrough agitation -Continue PT efforts as tolerated hypertension Tachycardia- due to agitation Hyperlipidemia -Continue Lopressor 50 mg po q8 - Amlodipine 10 mg daily - was also on Lisinopril - was held- monitor and restart if needed -Continue hydralazine. -Monitor blood pressure adjust medication as needed Acute hypoxic hypercapnic respiratory failure Status post percutaneous tracheostomy 08/[address] Conn -Tolerating T-piece- now on 40 %- RT ff- wean down as toelrated - prior to this was alredy down to 28% -continue Albuterol/ipratropium every 4 hours scheduled with albuterol aerosols every 2 hours as needed dyspnea -Bilateral cephalic DVTs, no PE on CTA chest -needs vigorous pulmonary toilette -Pulmonology following Severe protein calorie malnutrition Elevated transaminases downward trending Hypoalbuminemia Status post PEG by Dr. Jensen 1/2 Ileus, improved -Tube feeding with Jevity 1.5 goal 60 cc an hour- restart TF -Continue famotidine 20 mg IV twice daily for GI prophylaxis -Bowel regimen with docusate sodium, polythene glycol and lactulose -s/p Metoclopramide until 08/27 -Continue erythromycin base 250 mg 3 times daily until 08/31 -KUB on 08/26/18: No evidence of small or large bowel dilatation. Left basilar streakiness is noted consistent with atelectasis and/or mild infiltrate. -LFT improving, monitor Acute kidney injury Recurrent Urinary retention with mild bilateral hydronephrosis -Renal function improved. 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 Code Status: DNR. Discharge Planning: likely hospice.
[2018-09-03] MEDS: Famotidine 20 MG Tablet G-TUBE SCH (09:30)
[2018-09-03] MEDS: Folic Acid 1 MG Tablet PO SCH (09:30)
[2018-09-03] MEDS: QUEtiapine 100 MG Tablet PO SCH (09:31)
[2018-09-03] MEDS: Docusate Sodium Liq 100 MG/10 ML UDC G-TUBE SCH (09:31)
[2018-09-03] MEDS: Metoprolol Tartrate 50 MG Tablet PO SCH ×2 (09:31→12:43)
[2018-09-03] MEDS: hydrALAZINE 50 MG Tablet PO SCH ×2 (09:31→12:43)
[2018-09-03] MEDS: Polyethylene Glycol 3350 17 GM Packet PO SCH (09:31)
[2018-09-03] MEDS: Beneprotein Powder Packet G-TUBE SCH ×2 (09:32→12:43)
--- NOTE | 2018-09-03 11:57 | P.DS ---
DS: Providers Date of admission: 08/09/18 12:32 Primary care physician: UNKNOWN Consults: 08/21/18 10:22 Consult to Neuropsychology Routine Consulting Provider: Tom Sawant Preferred Drop Press Hand:: Tom Sawant, PhD Reason for Consultation: Patient with alcohol withdrawal with prolonged delirium. Assist with medication management Notified:: Physician Spoke with:: keegan msmoustapha Date Notified:: 08/21/18 Time Notified:: 10:27 Ordering Provider: MARTHA 08/29/18 10:13 Consult to Hospitalist Routine Consulting Provider: Matt Coffman Reason for Consultation: Consult and transfer to hospitalist service for medical management. Critical care will be signing off, please reconsult if needed Notified:: Service Spoke with:: Gina Date Notified:: 08/29/18 Time Notified:: 10:37 Ordering Provider: JAMAAL 08/31/18 13:51 Consult to Palliative Care Routine Consulting Provider: Tressa Morales Reason for Consultation: determine goals of care can be seen tomorrow Notified:: Service Spoke with:: THU Date Notified:: 08/31/18 Time Notified:: 13:55 Ordering Provider: TONY 08/09/18 13:04 Consult to Neurology Routine Consulting Provider: Jett Tapia Preferred Drop Press Hand:: Jett Tapia Reason for Consultation: Ischemic Stroke Notified:: Service Spoke with:: PEGGY Date Notified:: 08/09/18 Time Notified:: 13:53 Ordering Provider: JAMAAL Consult to Rehab Medicine Routine Consulting Provider: Saadia De Paz Reason for Consultation: Stroke patient, assist with Rehab recommendations Notified:: Service Spoke with:: Carolyn Date Notified:: 08/09/18 Time Notified:: 14:10 Ordering Provider: JAMAAL 08/09/18 13:09 Consult to Neurosurgery Routine Consulting Provider: Naveen Garcia Preferred Drop Press Hand:: Naveen Garcia Reason for Consultation: C6 FRACTURE on CT Notified:: Physician Spoke with:: Date Notified:: 08/09/18 Time Notified:: 13:54 Ordering Provider: JAMAAL 08/11/18 10:25 Consult to Hospitalist Routine Consulting Provider: Lenny Loredo Reason for Consultation: Consult and transfer to hospitalist service for medical management. Critical care will be signing off, please reconsult if needed Notified:: Service Spoke with:: MARCELLO Date Notified:: 08/11/18 Time Notified:: 13:02 Ordering Provider: JAMAAL 08/12/18 10:35 Consult to Pulmonology Routine Consulting Provider: Shaan Thurman Reason for Consultation: hypoxic resp failure Notified:: Service Spoke with:: FABRICIO Date Notified:: 08/12/18 Time Notified:: 10:42 Ordering Provider: JAMAAL 08/18/18 10:52 Consult to Gastroenterology Routine Consulting Provider: Jaxon Jensen Reason for Consultation: PEG consultation. Acute on chronic respiratory failure. Status post tracheostomy today 08/18. History of EtOH. Pneumonia. Notified:: Office Spoke with:: EARLENE Date Notified:: 08/18/18 Time Notified:: 10:58 Ordering Provider: MARTHA Brief History from admission: 58-year-old male who was found down in his friend 's garage this morning. He has a history of alcohol abuse. He recently sold his house and was staying at a friend's home. Reportedly he was due to fly later today. Patient was brought to the ER by EMS and was noted to have involuntary movements with jerking movements involving upper and lower extremities as well as his head. He received Ativan 3 mg IV and was loaded with Keppra. Initially stroke alert was called. Head CT was negative for any bleed however there was question of C6 fracture. Neurology and neurosurgery were consulted. Patient was loaded with IV Cerebyx and Vimpat by neurology. He had a [place] J collar placed after placing hard cervical collar by neurosurgery. When I evaluated the patient in the ER he was still having involuntary movements which appeared to be episodic with occasional twitchings on his face and nystagmus. This did not appear to be generalized tonic-clonic convulsions however appeared more like an extrapyramidal reaction. I ordered a stat EEG. Patient moving around too much to obtain MRI at this time. His urine tox screen was negative. He was positive for alcohol. Patient nonverbal. His involuntary movements get exaggerated on stimulation. He was reportedly completely normal yesterday. DS: Summary Metabolic encephalopathy- possibly Wernickes Anterior C6 fracture on [place] J collar for 6 weeks with flaccid right sided extremities EtOH abuse/withdrawal -On trach -requires frequent suctioning. Continue Levsin -On tube feeding Jevity 1.5 goal rate of 60 cc/hr -MRI C-spine nondisplaced C6 fracture, continue [place] J collar for 6 weeks per neurosurgery, moving all extremities spontaneously -Continue supplementation with thiamine, folic acid and multivitamin -Neuropsychiatry recommendations appreciated -Acetaminophen 650 by tube every 6 hours as needed fever -Haldol as needed for agitation -continue on Seroquel for now at 50 mg bid continue valproic acid 250 mg 3 times daily -wean oxycodone 10 mg every8 hours -continue baclofen 10 mg 3 times daily -As needed haloperidol 5 mg every 6 hours for breakthrough agitation -Continue PT efforts as tolerated hypertension Tachycardia- due to agitation Hyperlipidemia -Continue Lopressor 50 mg po q8 - Amlodipine 10 mg daily - was also on Lisinopril - was held- monitor and restart if needed -Continue hydralazine. -Monitor blood pressure adjust medication as needed Acute hypoxic hypercapnic respiratory failure Status post percutaneous tracheostomy 08/[address] Conn -Tolerating T-piece- now on 40 %- RT ff- wean down as toelrated - prior to this was alredy down to 28% -continue Albuterol/ipratropium every 4 hours scheduled with albuterol aerosols every 2 hours as needed dyspnea -Bilateral cephalic DVTs, no PE on CTA chest -needs vigorous pulmonary toilette -Pulmonology following Severe protein calorie malnutrition Elevated transaminases downward trending Hypoalbuminemia Status post PEG by Dr. Jensen 08/20 Ileus, improved -Tube feeding with Jevity 1.5 goal 60 cc an hour- restart TF -Continue famotidine 20 mg IV twice daily for GI prophylaxis -Bowel regimen with docusate sodium, polythene glycol and lactulose -s/p Metoclopramide until 08/27 -Continue erythromycin base 250 mg 3 times daily until 08/31 -KUB on 08/26/18: No evidence of small or large bowel dilatation. Left basilar streakiness is noted consistent with atelectasis and/or mild infiltrate. -LFT improving, monitor Acute kidney injury Recurrent Urinary retention with mild bilateral hydronephrosis -Renal function improved. Normocytic anemia Thrombocytosis Documentation of prior possible right subclavian occlusion -negative Doppler -Bilateral cephalic occlusive and nonocclusive superficial venous thrombosis -Currently on enoxaparin 40 mg subcu daily -Monitor CBC Time Spent with Patient Total time spent providing and/or coordinating discharge services: Greater than 30 minutes Specific discharge activities: 35 min. Exam Narrative Exam Narrative: patient in no acute distress. trach in place- abdomen is soft/ bilateral air entry present/ no pedal edema. Results Procedures completed during hospitalization: tracheostomy. Labs on day of discharge: Labs from last 24 hours 08/31/18 11:00 Urine Color Yellow Urine Clarity Clear Urine pH 7.0 Ur Specific [place] 1.017 Urine Protein 30 H Urine Glucose (UA) Negative Urine Ketones Negative Urine Occult Blood Negative Urine Nitrate Negative Urine Bilirubin Negative Urine Urobilinogen Less than 2 Ur Leukocyte Esterase Small H Urine RBC 21 H Urine WBC 17 H Urine Bacteria Rare H Hyaline Casts 4 Micro UA Comment Cath-culture ind Urine Culture Comments Cath-cult indicated Preliminary micro results at discharge 08/31/18 10:04 Aerobic Blood Culture - Preliminary Blood - Peripheral No growth in 3 days Anaerobic Blood Culture - Preliminary No growth in 3 days 08/31/18 10:10 Aerobic Blood Culture - Preliminary Blood - Peripheral No growth in 3 days Anaerobic Blood Culture - Preliminary No growth in 3 days 08/31/18 11:00 Urine Culture - Preliminary Catheterized Urine Sanjuanita parapsilosis Impressions ITS Impressions Cervical Spine CT 08/09/18 09:23 CONCLUSION: 1. Fracturing through anterior flowing spurs at the anterior C6 level with the fracture extending into the anterior inferior left lateral aspect of the C6 vertebral body. Empty displacement is not seen. No other possible fractures are seen. 2. 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 3. Degenerative change. Head CTA 08/09/18 09:28 CONCLUSION: Negative CTA. Report was called by [Dr. Dutton to Dr. Faustin. A message was left on the voicemail. ] Neck CTA 08/09/18 09:28 CONCLUSION: Negative CTA of the neck. Cervical Spine MRI 08/10/18 00:00 CONCLUSION: 1. Fracturing through the prominent flowing spurs at the C6 level and extending into the anterior inferior aspect of C6 vertebral body without displacement. Minimal edema seen around the fracture site. 2. Prominent spurring extending from C4 to into the thoracic spine consistent with DISH. 3. Mild central disc protrusion at the C3-C4 level. 4. Mild disc protrusion with the apex at the left lateral recess region at the C5-C6 level. 5. Neural foraminal narrowing at the C3-C4 and C5-C6 levels. Head MRI 08/10/18 00:00 CONCLUSION: 1. No acute intracranial abnormality. 2. Mild atrophy. Lumbar Spine CT 08/10/18 00:00 CONCLUSION: 1. No acute abnormality seen. 2. Prominent spur seen throughout the thoracic and lumbar spine likely from DISH. 3. Mild disc bulges at the L3-L4 and L4-L5 levels. 4. Lower lumbar facet hypertrophy. Thoracic Spine CT 08/10/18 00:00 CONCLUSION: 1. No fracture is seen. 2. Prominent spurring seen throughout the thoracic spine but be secondary to DISH. 3. Subpleural areas of consolidation or atelectasis at the posterior lower lungs. Chest CTA 08/11/18 00:00 CONCLUSION: 1. No evidence of any pulmonary embolism. 2. There are bilateral infiltrates predominantly in the posterior mid to lower lung villarreal. 3. 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 Abdomen/Bladder Ultrasound 08/14/18 07:24 CONCLUSION: 1. Mild prominence of the right collecting system suggestive of some mild hydronephrosis. 2. The left kidney is unremarkable. 3. The urinary bladder appears to be distended with a volume of 1554 mL. Lumbar Puncture Fluoroscopy 08/15/18 12:27 CONCLUSION: 1. Uncomplicated fluoroscopically guided lumbar puncture. Venous Doppler Study 08/17/18 00:00 CONCLUSION: 1. Occlusive thrombus of the cephalic veins bilaterally. No other venous thrombosis. Abdomen X-Ray 08/26/18 00:00 CONCLUSION: 1. No evidence of small or large bowel dilatation. 2. Left basilar streakiness is noted consistent with atelectasis and/or mild infiltrate. 3. Degenerative changes are noted throughout the thoracolumbar spine and bilateral hips. Head CT 08/30/18 00:00 CONCLUSION: 1. No acute findings in the brain. 2. Air-fluid levels in the sphenoid sinuses. . Chest X-Ray 08/31/18 00:00 CONCLUSION: Persistent but improved airspace opacity in the left lower lobe which could represent atelectasis or airspace consolidation. Discharge Plan Discharge Disposition Patient Disposition: [facility] Hosp[facility] Facility Discharge Condition Condition: Serious Discharge Order Discharge Orders: Discharge Order (Routine); Ordered 09/03/18 Ordered By: Devyn Hummel Physicians Team Primary Care Provider: UNKNOWN, Attending Provider: Devyn Hummel Other Providers: Jett Tapia ; Naveen Garcia ; Saadia De Paz ; Shaan Thurman ; Jaxon Jensen ; Tom Sawant ; Tressa Morales Rxs /Orders / Referrals /Forms Prescriptions: New oxycodone 20 mg/mL Concentrate 10 mg G-Tube Q8HR Qty: 30 RF: 0 folic acid 1 mg Tablet 1 mg PO DAILY 30 Days Qty: 30 RF: 0 isosorbide dinitrate 20 mg Tablet 20 mg PO Q8HR 30 Days Qty: 90 RF: 0 valproic acid (as sodium salt) 250 mg/5 mL (5 mL) Solution 250 mg PO TID 30 Days Qty: 450 RF: 0 aspirin 81 mg Tablet,Chewable 81 mg G-Tube DAILY 30 Days Qty: 30 RF: 0 pravastatin 40 mg Tablet 40 mg G-Tube HS 30 Days Qty: 30 RF: 0 thiamine HCl (vitamin B1) 100 mg Tablet 100 mg PO DAILY 30 Days Qty: 30 RF: 0 baclofen 10 mg Tablet 10 mg PO Q8HR Qty: 20 RF: 0 multivitamin with folic acid [Thera] 400 mcg Tablet 1 tab PO DAILY 30 Days Qty: 30 RF: 0 albuterol sulfate 2.5 mg /3 mL (0.083 %) Solution For Nebulization 2.5 mg NEB Q2HR NEB PRN (Reason: Dyspnea) 30 Days Qty: 75 RF: 0 metoprolol tartrate 50 mg Tablet 50 mg PO TID 30 Days Qty: 90 RF: 0 hyoscyamine sulfate [Hyosyne] 0.125 mg/mL Drops 0.125 mg Sublingual Q4H PRN (Reason: Secretions) Qty: 15 RF: 0 famotidine 20 mg Tablet 20 mg G-Tube BID 30 Days Qty: 60 RF: 0 hydralazine 50 mg Tablet 50 mg PO QID 30 Days Qty: 120 RF: 0 No Action Unable to Obtain Home Meds RF: 0 Referrals: UNKNOWN, [Primary Care Provider] - See Instructions Status ED Status: Left Department
--- NOTE | 2018-09-03 11:59 | P.PNIM ---
Subjective Interval history: in no acute distress. denies pain. awaiting hospice evaluation. Physical Exam Vital signs: Vital Signs 09/02/18 12:00 09/02/18 13:00 09/02/18 14:00 Temperature 98.4 F Pulse Rate 87 87 85 Respiratory Rate 24 26 H 25 H Blood Pressure 156/78 H 153/80 H 169/85 H Pulse Oximetry 97 99 99 09/02/18 15:00 09/02/18 16:00 09/02/18 17:00 Temperature 98.2 F Pulse Rate 83 79 78 Respiratory Rate 26 H 24 23 Blood Pressure 157/78 H 148/99 H 164/84 H Pulse Oximetry 97 99 98 09/02/18 18:00 09/02/18 20:00 09/02/18 20:08 Temperature 99.1 F Pulse Rate 77 76 Respiratory Rate 20 23 Blood Pressure 155/87 H 174/94 H Pulse Oximetry 98 98 99 09/03/18 00:00 09/03/18 03:51 09/03/18 04:00 Temperature 99.3 F Pulse Rate 84 80 Respiratory Rate 30 H 27 H Blood Pressure 179/103 H 173/98 H Pulse Oximetry 99 99 98 09/03/18 08:00 09/03/18 08:05 09/03/18 08:49 Temperature Pulse Rate 85 Respiratory Rate Blood Pressure Pulse Oximetry 98 97 Intake & Output 09/02/18 09/03/18 09/03/18 18:59 06:59 18:59 Intake Total 833 / 833 880 / 880 Output Total 525 / 525 650 / 650 Balance 308 / 308 230 / 230 Weight 79.4 kg Intake: Tube Feeding 653 / 653 880 / 880 Tube Irrigant 60 / 60 Water Bolus Amount 120 / 120 Output: Urine Amount (Catheter) 525 / 525 650 / 650 Indwelling Urethral Catheter 525 / 525 650 / 650 Other: Date of Last Bowel Movement 09/02/18 09/02/18 09/02/18 # Bowel Movements 0 0 Constitutional no acute distress Routine Respiratory Exam Present CTA bilaterally Routine Cardiovascular Exam Present RRR Routine Abdominal Exam Present soft Routine Extremities Exam Comments: no pedal edema. Routine Neurological Exam Present alert Urinary Catheter Management Indwelling Urethral Catheter: Cath placed during this visit: yes, but has since been removed by the nurse Reason for continuing: Acute urinary retention Insertion date: 08/28/18 Insertion time: 08:00 Removal date: 08/26/18 Removal time: 06:30 Condom: Cath placed during this visit: no Reason for continuing: Not indwelling catheter Straight: Cath placed during this visit: yes Reason for continuing: Chronic Urinary Retention Insertion date: 08/28/18 Insertion time: 08:00 Results Labs CBC & Chem 7: 09/02/18 06:31 09/02/18 06:31 Labs: Microbiology 08/31/18 10:04 Blood - Peripheral Aerobic Blood Culture - Preliminary No growth in 3 days 08/31/18 10:04 Blood - Peripheral Anaerobic Blood Culture - Preliminary No growth in 3 days 08/31/18 10:10 Blood - Peripheral Aerobic Blood Culture - Preliminary No growth in 3 days 08/31/18 10:10 Blood - Peripheral Anaerobic Blood Culture - Preliminary No growth in 3 days 08/31/18 11:00 Catheterized Urine Urine Culture - Preliminary Sanjuanita parapsilosis 08/31/18 08:40 Sputum - Tracheal Aspirate Gram Stain - Final 08/31/18 08:40 Sputum - Tracheal Aspirate Sputum Culture - Final Heavy growth normal respiratory sherman Assessment and Plan Plan Metabolic encephalopathy- possibly Wernickes Anterior C6 fracture on [place] J collar for 6 weeks with flaccid right sided extremities EtOH abuse/withdrawal -On trach -requires frequent suctioning. Continue Levsin -On tube feeding Jevity 1.5 goal rate of 60 cc/hr -MRI C-spine nondisplaced C6 fracture, continue [place] J collar for 6 weeks per neurosurgery, moving all extremities spontaneously -Continue supplementation with thiamine, folic acid and multivitamin -Neuropsychiatry recommendations appreciated -Acetaminophen 650 by tube every 6 hours as needed fever -Haldol as needed for agitation -continue on Seroquel for now at 50 mg bid continue valproic acid 250 mg 3 times daily -wean oxycodone 10 mg every8 hours -continue baclofen 10 mg 3 times daily -As needed haloperidol 5 mg every 6 hours for breakthrough agitation -Continue PT efforts as tolerated hypertension Tachycardia- due to agitation Hyperlipidemia -Continue Lopressor 50 mg po q8 - Amlodipine 10 mg daily - was also on Lisinopril - was held- monitor and restart if needed -Continue hydralazine. -Monitor blood pressure adjust medication as needed Acute hypoxic hypercapnic respiratory failure Status post percutaneous tracheostomy 08/[address] Conn -Tolerating T-piece- now on 40 %- RT ff- wean down as toelrated - prior to this was alredy down to 28% -continue Albuterol/ipratropium every 4 hours scheduled with albuterol aerosols every 2 hours as needed dyspnea -Bilateral cephalic DVTs, no PE on CTA chest -needs vigorous pulmonary toilette -Pulmonology following Severe protein calorie malnutrition Elevated transaminases downward trending Hypoalbuminemia Status post PEG by Dr. Jensen 1/2 Ileus, improved -Tube feeding with Jevity 1.5 goal 60 cc an hour- restart TF -Continue famotidine 20 mg IV twice daily for GI prophylaxis -Bowel regimen with docusate sodium, polythene glycol and lactulose -s/p Metoclopramide until 08/27 -Continue erythromycin base 250 mg 3 times daily until 08/31 -KUB on 08/26/18: No evidence of small or large bowel dilatation. Left basilar streakiness is noted consistent with atelectasis and/or mild infiltrate. -LFT improving, monitor Acute kidney injury Recurrent Urinary retention with mild bilateral hydronephrosis -Renal function improved. Normocytic anemia Thrombocytosis Documentation of prior possible right subclavian occlusion -negative Doppler -Bilateral cephalic occlusive and nonocclusive superficial venous thrombosis -Currently on enoxaparin 40 mg subcu daily -Monitor CBC Discharge Planning: likely hospice. E-Foarsce was consulted.
[2018-09-03 12:42] VITALS: BP 179/106; PULSE 80; RESP 24; TEMP 98.8; O2SAT 99
--- NOTE | 2018-09-03 12:43 | P.PN ---
Subjective Interval history: Seems more alert and remains on T-bar with FiO2 of 30%. Trach secretions are still copious but clear. No fever. Tolerating tube feeds. Hospice consult in progress. Physical Exam Vital signs: Vital Signs 09/02/18 13:00 09/02/18 14:00 09/02/18 15:00 Temperature Pulse Rate 87 85 83 Respiratory Rate 26 H 25 H 26 H Blood Pressure 153/80 H 169/85 H 157/78 H Pulse Oximetry 99 99 97 09/02/18 16:00 09/02/18 17:00 09/02/18 18:00 Temperature 98.2 F Pulse Rate 79 78 77 Respiratory Rate 24 23 20 Blood Pressure 148/99 H 164/84 H 155/87 H Pulse Oximetry 99 98 98 09/02/18 20:00 09/02/18 20:08 09/03/18 00:00 Temperature 99.1 F 99.3 F Pulse Rate 76 84 Respiratory Rate 23 30 H Blood Pressure 174/94 H 179/103 H Pulse Oximetry 98 99 99 09/03/18 03:51 09/03/18 04:00 09/03/18 08:00 Temperature Pulse Rate 80 Respiratory Rate 27 H Blood Pressure 173/98 H Pulse Oximetry 99 98 98 09/03/18 08:05 09/03/18 08:49 Temperature Pulse Rate 85 Respiratory Rate Blood Pressure Pulse Oximetry 97 Intake & Output 09/02/18 09/03/18 09/03/18 18:59 06:59 18:59 Intake Total 833 / 833 880 / 880 Output Total 525 / 525 650 / 650 Balance 308 / 308 230 / 230 Weight 79.4 kg Intake: Tube Feeding 653 / 653 880 / 880 Tube Irrigant 60 / 60 Water Bolus Amount 120 / 120 Output: Urine Amount (Catheter) 525 / 525 650 / 650 Indwelling Urethral Catheter 525 / 525 650 / 650 Other: Date of Last Bowel Movement 09/02/18 09/02/18 09/02/18 # Bowel Movements 0 0 Narrative: Awake today with eyes opened, aphasic, not following commands on tracheostomy - T piece- currently at 30 % PERRL ,sclera clear. neck with Trach tube in place. T bar Regular rhythm, tachycardic Respiratory :no accessory muscle use.Wheeze scattered,and no rales Abdomen soft, non-tender, nondistended. PEG in place escamilla in place no leg swelling motor -no purposeful movements - Urinary Catheter Management Indwelling Urethral Catheter Cath placed during this visit: yes, but has since been removed by the nurse Reason for continuing: Acute urinary retention Insertion date: 08/28/18 Insertion time: 08:00 Removal date: 08/26/18 Removal time: 06:30 Condom Cath placed during this visit: no Reason for continuing: Not indwelling catheter Straight Cath placed during this visit: yes Reason for continuing: Chronic Urinary Retention Insertion date: 08/28/18 Insertion time: 08:00 Results - Labs CBC & Chem 7: 09/02/18 06:31 09/02/18 06:31 Laboratory Results - last 24 hr 08/31/18 11:00 Urine Color Yellow Urine Clarity Clear Urine pH 7.0 Ur Specific [place] 1.017 Urine Protein 30 H Urine Glucose (UA) Negative Urine Ketones Negative Urine Occult Blood Negative Urine Nitrate Negative Urine Bilirubin Negative Urine Urobilinogen Less than 2 Ur Leukocyte Esterase Small H Urine RBC 21 H Urine WBC 17 H Urine Bacteria Rare H Hyaline Casts 4 Micro UA Comment Cath-culture ind Urine Culture Comments Cath-cult indicated Microbiology 08/31/18 10:04 Blood - Peripheral Aerobic Blood Culture - Preliminary No growth in 3 days 08/31/18 10:04 Blood - Peripheral Anaerobic Blood Culture - Preliminary No growth in 3 days 08/31/18 10:10 Blood - Peripheral Aerobic Blood Culture - Preliminary No growth in 3 days 08/31/18 10:10 Blood - Peripheral Anaerobic Blood Culture - Preliminary No growth in 3 days 08/31/18 11:00 Catheterized Urine Urine Culture - Preliminary Sanjuanita parapsilosis 08/31/18 08:40 Sputum - Tracheal Aspirate Gram Stain - Final 08/31/18 08:40 Sputum - Tracheal Aspirate Sputum Culture - Final Heavy growth normal respiratory sherman - Procedures tracheostomy. Assessment and Plan - Assessment (1) Respiratory failure requiring intubation Code(s): J96.90 - Respiratory failure, unspecified, unspecified whether with hypoxia or hypercapnia Status: Acute (2) Pneumonia Code(s): J18.9 - Pneumonia, unspecified organism Status: Acute (3) Seizure Code(s): R56.9 - Unspecified convulsions Status: Acute (4) Hypertensive urgency Code(s): I16.0 - Hypertensive urgency Status: Acute (5) Alcohol intoxication Code(s): F10.929 - Alcohol use, unspecified with intoxication, unspecified Status: Acute (6) Altered mental status Code(s): R41.82 - Altered mental status, unspecified Status: Acute (7) Delirium due to general medical condition Code(s): F05 - Delirium due to known physiological condition Status: Acute - Plan 1. Cont T bar as tolerated and FIO2 28 % 2. Mucomyst 20% solution 2 cc twice daily with nebulized 3. Trach lavage and Suction.PRN 4. Continue Duoneb nebs Q6H 5. Family decided on hospice care 6. Tube feeds at 50 CC 7. Continue Seroquel 100 mg 2 times daily 8. Continue Robinul 1 mg TID 9. Levsin .125 mg QID PRN
== END 2018-09-03 15:25 | disposition hospice, inpatient (51) | DRG 4 ==
LOC: NEPC 09:13 → NEDA 12:32 → N03 15:36 → N06 08-29 17:37 → N03 08-30 18:40
PROVIDERS: ADMIT Internal Medicine; ATTEND Internal Medicine
CPT/HCPCS: 31500; 36600; 51798; 62270; 70450; 70496; 70498; 70551; 71010; 71045; 71275; 72126; 72128; 72131; 72141; 74000; 74018; 76775; 76937; 77003; 80048; 80053; 80061; 80074; 80164; 80185; 80202; 80307; 80324; 80348; 80352; 80353; 80356; 80359; 80371; 81001; 82042; 82140; 82145; 82520; 82542; 82550; 82552; 82570; 82607; 82784; 82805; 82945; 82948; 82962; 83036; 83520; 83605; 83735; 83789; 83873; 83916; 83925; 84100; 84132; 84155; 84157; 84300; 84443; 84484; 85025; 85027; 85384; 85610; 85651; 85652; 85730; 86140; 86403; 86592; 87040; 87070; 87086; 87106; 87149; 87186; 87205; 87327; 87449; 87493; 87498; 87529; 89051; 90765; 90775; 90776; 92610; 93005; 93306; 93970; 94002; 94003; 94640; 94656; 94657; 94664; 94665; 95819; 96125; 96365; 96375; 96376; 97110; 97127; 97163; 97164; 97167; 97530; 97532; 97535; 99291; C9248; C9254; G0195; G0480; G0481; G0515; G6042; G6044; G6056; G6058; J0133; J0360; J0610; J0690; J1100; J1200; J1630; J1644; J1650; J1815; J1940; J1953; J2060; J2212; J2250; J2310; J2543; J2704; J2765; J3010; J3370; J3411; J3475; J3480; J7030; J7040; J7050; J7070; L0150; L0172; Q2009; Q9967